=== PATIENT | male | born 1935 | race Caucasian/White ===

== ENCOUNTER → 2017-04-02 | Outpatient (CLI) | payer BC ==
[~2017-04-02] MED LIST: ALLOPOW4 PO; CLONIPINE PO; CLOP1TAB15 PO; CTP3 PO; DABI150C PO; EZET10TA38 PO; FRS/40 PO; LEVO25TA34 PO; METO100T14 PO; MULT-506 PO; RANI150T3 PO; SPIR25TA PO; [UNRECOGNIZED DRUG - CODE] PO
[2017-04-02 09:34] LABS: HEMATOCRIT 41.4 % (42-52); MEAN CELL VOLUME 93.9 fL (80-100); MEAN CORPUSCULAR HEMOGLOBIN 31.1 pg (25-34); MEAN CORPUSCULAR HGB CONC 33.1 g/dl (32-36); MEAN PLATELET VOLUME 11.6 fL (7.4-10.4); PLATELET COUNT 192 K/uL (130-400); RED BLOOD COUNT 4.41 M/uL (4.7-6.1)
[2017-04-02 09:42] LABS: URINE APPEARANCE CLEAR (CLEAR); URINE BILIRUBIN NEG (NEG); URINE COLOR YELLOW; URINE EPITHELIAL CELL AUTO 0-5 /lpf (0-5); URINE NITRITE NEG (NEG); URINE SPECIFIC GRAVITY 1.019 (1.000-1.030); UROBILINOGEN NEG (NEG)
[2017-04-02 09:47] LABS: MANUAL MICROSCOPIC REQUIRED? NO; REVIEW REQ? NO
[2017-04-02 09:51] LABS: BLOOD UREA NITROGEN 31 mg/dl (7-18); BUN/CREATININE RATIO 18.4 (10-20); CALCIUM 9.4 mg/dl (8.5-10.1); CARBON DIOXIDE 29 mmol/L (21-32); CHLORIDE 107 mmol/L (98-107); GLUCOSE 134 mg/dl (70-99); POTASSIUM 4.4 mmol/L (3.5-5.1); SODIUM 141 mmol/L (136-145)
[2017-04-02 10:07] LABS: URINE PROTIEN/CREAT RATIO 0.2 (0-0.2); URINE TOTAL PROTEIN 15.5 mg/dl (0-11.9)
== END | disposition home or self-care (01) ==
LOC: C.LAB1850 06:59
PROVIDERS: ATTEND Internal Medicine Nephrology
DX: I12.9 Hypertensive chronic kidney disease with stage 1 through stage 4 chronic kidney disease, or unspecified chronic kidney disease (principal); N18.3 Chronic kidney disease, stage 3 (moderate); N25.81 Secondary hyperparathyroidism of renal origin; D64.9 Anemia, unspecified

== ENCOUNTER → 2017-10-07 | Outpatient (CLI) | payer BC ==
[2017-10-07 09:34] LABS: HEMATOCRIT 43.7 % (42-52); HEMOGLOBIN 14.5 g/dL (14.0-18.0); MEAN CELL VOLUME 95.6 fL (80-100); MEAN CORPUSCULAR HEMOGLOBIN 31.7 pg (25-34); MEAN CORPUSCULAR HGB CONC 33.2 g/dl (32-36); MEAN PLATELET VOLUME 12.2 fL (7.4-10.4); PLATELET COUNT 227 K/uL (130-400); RED CELL DISTRIBUTION WIDTH CV 14.6 % (11.5-14.5); RED CELL DISTRIBUTION WIDTH SD 50.2 fL (36.4-46.3); WHITE BLOOD COUNT 9.52 K/uL (4.8-10.8)
[2017-10-07 09:47] LABS: ALBUMIN 4.1 gm/dl (3.4-5.0); ALT/SGPT 21 U/L (12-78); AST/SGOT 27 U/L (15-37); BLOOD UREA NITROGEN 41 mg/dl (7-18); CALCIUM 9.3 mg/dl (8.5-10.1); CARBON DIOXIDE 29 mmol/L (21-32); CREATININE 2.11 mg/dl (0.60-1.40); GLUCOSE 117 mg/dl (70-99); POTASSIUM 3.9 mmol/L (3.5-5.1); SODIUM 138 mmol/L (136-145)
[2017-10-07 09:53] LABS: HEMOGLOBIN A1C 6.1 % (4.5-5.6)
[2017-10-07 10:01] LABS: CHOLESTEROL 101 mg/dl (0-200); LDL CHOLESTEROL CALCULATED 29 mg/dl; PHOSPHORUS 2.7 mg/dl (2.5-4.9)
== END | disposition home or self-care (01) ==
LOC: C.LAB1850 07:09
PROVIDERS: ATTEND Internal Medicine Nephrology
DX: I25.10 Atherosclerotic heart disease of native coronary artery without angina pectoris (principal); I12.9 Hypertensive chronic kidney disease with stage 1 through stage 4 chronic kidney disease, or unspecified chronic kidney disease; N18.3 Chronic kidney disease, stage 3 (moderate); E03.9 Hypothyroidism, unspecified; R73.03 Prediabetes; N25.81 Secondary hyperparathyroidism of renal origin; D63.1 Anemia in chronic kidney disease; R60.9 Edema, unspecified

== ENCOUNTER → 2017-10-26 | Outpatient (CLI) | payer BC ==
[~2017-10-26] MED LIST changes: +ALLO100T PO; +AMLO-114 PO; +CALC0.5C2 PO; +CARB25TA12 PO; +CLON0.2T PO; +DABI1CAP PO; +LEVO88TA3 PO; +METO25TA56 PO; +NITR0.4S UT; +VNTHFA/IN INH
--- NOTE | 2017-10-26 12:27 | DIAGNOSTIC IMAGING REPORT ---
CHEST 2 VIEWS ROUTINE HISTORY: 82 years-old Male R06.02 SOB (shortness of breath)[id number] acute shortness of breath COMPARISON: Chest radiograph 09/22/2014 TECHNIQUE: PA and lateral views of the chest FINDINGS: Cardiac silhouette is moderately enlarged. Atherosclerosis of the aorta. Pulmonary vascular congestion is noted with hazy perihilar opacities. Mild biapical pleural-parenchymal scarring/pleural thickening. Small bilateral pleural effusions with hazy bibasilar opacities. Mild interstitial coarsening. No overt pulmonary edema. Bones of the chest appear grossly intact. IVC filter is partially imaged. IMPRESSION: Cardiomegaly and pulmonary vascular congestion with small bilateral pleural effusions and bibasilar opacities suggesting atelectasis or pneumonia. The above report was generated using voice recognition software. It may contain grammatical, syntax or spelling errors. Electronically signed by: Pierre Talley M.D. 10/26/2017 12:25 PM Dictated Date/Time: 10/26/2017 12:23 PM
[2017-10-26 12:55] LABS: BASO % 0.3 %; BASO ABS # 0.03 K/uL (0-0.2); EOS % 0.4 %; EOS ABS # 0.04 K/uL (0-0.5); HEMATOCRIT 38.7 % (42-52); HEMOGLOBIN 12.9 g/dL (14.0-18.0); IG# 0.04 K/uL (0.00-0.02); LYMPH % 14.1 %; MEAN CELL VOLUME 95.8 fL (80-100); MEAN CORPUSCULAR HEMOGLOBIN 31.9 pg (25-34); MEAN CORPUSCULAR HGB CONC 33.3 g/dl (32-36); MEAN PLATELET VOLUME 11.3 fL (7.4-10.4); MONO % 9.7 %; NEUT % 75.1 %; PLATELET COUNT 234 K/uL (130-400); RED CELL DISTRIBUTION WIDTH CV 15.2 % (11.5-14.5); RED CELL DISTRIBUTION WIDTH SD 52.8 fL (36.4-46.3); WHITE BLOOD COUNT 11.31 K/uL (4.8-10.8)
[2017-10-26 13:25] LABS: BLOOD UREA NITROGEN 40 mg/dl (7-18); CALCIUM 9.2 mg/dl (8.5-10.1); CARBON DIOXIDE 25 mmol/L (21-32); CREATININE 1.76 mg/dl (0.60-1.40); GLUCOSE 116 mg/dl (70-99); SODIUM 140 mmol/L (136-145)
== END | disposition home or self-care (01) ==
LOC: C.RAD1850 11:54
PROVIDERS: ATTEND Nurse Practitioner Adult Health
DX: N18.3 Chronic kidney disease, stage 3 (moderate) (principal); I48.2 Chronic atrial fibrillation; I51.7 Cardiomegaly; R06.89 Other abnormalities of breathing

== ENCOUNTER 2017-11-01 00:48 | Inpatient (IN) | payer BC, OTHER ==
[2017-11-01] VITALS (10 sets, daily range): BP systolic 156–178; BP diastolic 54–71; PULSE 64–86; TEMP 36.9–37.3; O2SAT 91–96; Ht 172.7 cm; Wt 79.4 kg
[~2017-11-01] VITALS: Ht 172.7 cm; Wt 79.4 kg
[~2017-11-01 00:48] MED LIST changes: -ALLO100T PO; -AMLO-114 PO; -CALC0.5C2 PO; -CARB25TA12 PO; -CLON0.2T PO; -DABI1CAP PO; -LEVO88TA3 PO; -METO25TA56 PO; -NITR0.4S UT; -VNTHFA/IN INH
[2017-11-01] MEDS ORDERED: ALBUT/IPRATROP 3MG/0.5MG NEB 3 ML VIAL INH STA (01:15)
--- NOTE | 2017-11-01 01:21 | EMERGENCY ROOM VISIT NOTE ---
History Report prepared by Sara: Eugenio Horton Under the Supervision of: Dr. Rogelio Shah M.D. First contact with patient: 00:56 Chief Complaint: RESPIRATORY PROBLEMS Stated Complaint: DIFFICULTY BREATHING History of Present Illness The patient is a 82 year old male who presents to the Emergency Room with complaints of worsening difficulty breathing that began a week ago. He states the symptoms are exacerbated with walking up steps. Patient has associated symptoms of runny nose, shortness of breath, and productive cough. Patient states that leg swelling is his baseline because he takes blood pressure medication. Patient states his PCP is Dr. Young. He denies fevers, chest pain, abdominal pain, passing out, and diarrhea. He states he is not on oxygen at home. He denies a history of heart attacks. He denies a history of asthma. Patient states he is on Lasix and antibiotics. Patient was taking azithromycin for the last few days. Source of History: patient Onset: a week ago Position: chest Timing: worsening Associated Symptoms: + cough, + SOB, No fevers, No chest pain, No diarrhea Note: Patient has runny nose. He denies passing out. Review of Systems See HPI for pertinent positives & negatives. A total of 10 systems reviewed and were otherwise negative. Past Medical & Surgical Medical Problems: (1) Leg swelling (2) Pneumonia involving left lung Family History Omitted secondary to age. Social History Smoking Status: Former Smoker Drug Use: none Marital Status: Occupation Status: retired Current/Historical Medications Scheduled Allopurinol (Zyloprim), 200 MG PO DAILY Amlodipine (Norvasc), 10 MG PO DAILY Calcitriol (Rocaltrol), 0.5 MCG PO QAM Carbidopa/Levodopa (Sinemet 25MG/100MG), 1 TAB PO TID Clonidine Hcl (Catapres), 2 TABS PO TID Clopidogrel (Plavix), 75 MG PO DAILY Dabigatran Etexilate Mesylate (Pradaxa), 75 MG PO BID Ezetimibe/Simvastatin (Vytorin 10MG/20MG), 10-20 TAB PO QPM Furosemide (Lasix), 40 MG PO DAILY Levothyroxine Sodium (Levothyroxine Sodium), 1 TAB PO DAILY Metoprolol Tartrate (Lopressor) (Lopressor), 12.5 MG PO BID Multivitamin (Multivitamin), 1 TAB PO DAILY Scheduled PRN Albuterol Hfa (Ventolin Hfa), 1-2 PUFFS INH Q6H PRN for SOB/Wheezing Nitroglycerin (Nitrostat), 0.4 MG UT UD PRN for Chest Pain Ranitidine Hcl (Zantac), 150 MG PO Q12 PRN for Heartburn Allergies Coded Allergies: Hydralazine (Verified Allergy, Unknown, anorexia,h/a,nausea,palpitations, 11/01/17) Physical Exam Vital Signs Date Time Temp Pulse Resp B/P (MAP) Pulse Ox O2 Delivery O2 Flow Rate FiO2 11/01/17 01:23 97 Nebulizer 7.0 11/01/17 01:20 88 Room Air 11/01/17 00:51 37.5 83 26 191/97 90 Room Air Physical Exam GENERAL: Patient is ill appearing and in mild distress. HEENT: No acute trauma, normocephalic atraumatic, mucous membranes moist, no nasal congestion, no scleral icterus. NECK: No stridor, no adenopathy, no meningismus, trachea is midline. LUNGS: Dyspneic and tachypneic with wet crackles in all lung milan, decreased in left lung with wheezing upper left lung milan. HEART: Regular rate and rhythm. No murmurs, rubs, gallops appreciated. ABDOMEN: Soft, nontender, bowel sounds positive, no masses appreciated, no peritonitis. BACK: No midline tenderness, no CVA tenderness EXTREMITIES: Normal motion all extremities, no cyanosis, mild edema bilateral lower legs. NEUROLOGIC: Alert and oriented, no acute motor or sensory deficits, no focal weakness, cranial nerves grossly intact. SKIN: No rash, no jaundice, no diaphoresis. Medical Decision & Procedures ER Provider Diagnostic Interpretation: Radiology results and stated below were interpreted by me: Chest X-Ray: large upper lobe infiltrate with diffuse congestive findings. Laboratory Results 11/01/17 01:45 Red Blood Count 3.78, Mean Corpuscular Volume 93.7, Mean Corpuscular Hemoglobin 32.0, Mean Corpuscular Hemoglobin Concent 34.2, Mean Platelet Volume 11.1, Neutrophils (%) (Auto) 81.9, Lymphocytes (%) (Auto) 5.5, Monocytes (%) (Auto) 12.2, Eosinophils (%) (Auto) 0.1, Basophils (%) (Auto) 0.2, Neutrophils # (Auto ) 7.53, Lymphocytes # (Auto) 0.51, Monocytes # (Auto) 1.12, Eosinophils # (Auto ) 0.01, Basophils # (Auto) 0.02 11/01/17 01:45 Test 11/01/17 01:45 11/01/17 01:46 White Blood Count 9.20 K/uL (4.8-10.8) Red Blood Count 3.78 M/uL (4.7-6.1) Hemoglobin 12.1 g/dL (14.0-18.0) Hematocrit 35.4 % (42-52) Mean Corpuscular Volume 93.7 fL (80-100) Mean Corpuscular Hemoglobin 32.0 pg (25-34) Mean Corpuscular Hemoglobin Concent 34.2 g/dl (32-36) Platelet Count 193 K/uL (130-400) Mean Platelet Volume 11.1 fL (7.4-10.4) Neutrophils (%) (Auto) 81.9 % Lymphocytes (%) (Auto) 5.5 % Monocytes (%) (Auto) 12.2 % Eosinophils (%) (Auto) 0.1 % Basophils (%) (Auto) 0.2 % Neutrophils # (Auto) 7.53 K/uL (1.4-6.5) Lymphocytes # (Auto) 0.51 K/uL (1.2-3.4) Monocytes # (Auto) 1.12 K/uL (0.11-0.59) Eosinophils # (Auto) 0.01 K/uL (0-0.5) Basophils # (Auto) 0.02 K/uL (0-0.2) RDW Standard Deviation 50.5 fL (36.4-46.3) RDW Coefficient of Variation 15.0 % (11.5-14.5) Immature Granulocyte % (Auto) 0.1 % Immature Granulocyte # (Auto) 0.01 K/uL (0.00-0.02) Prothrombin Time 13.4 SECONDS (9.0-12.0) Prothromb Time International Ratio 1.3 (0.9-1.1) Activated Partial Thromboplast Time 40.1 SECONDS (21.0-31.0) Partial Thromboplastin Ratio 1.5 Anion Gap 9.0 mmol/L (3-11) Est Creatinine Clear Calc Drug Dose 30.2 ml/min Estimated GFR () 40.3 Estimated GFR (Non- 34.7 BUN/Creatinine Ratio 21.6 (10-20) Calcium Level 8.7 mg/dl (8.5-10.1) Magnesium Level 2.2 mg/dl (1.8-2.4) Troponin I < 0.015 ng/ml (0-0.045) Pro-B-Type Natriuretic Peptide 7045 pg/ml (0-1800) Bedside Lactic Acid Venous 0.81 mmol/L (0.90-1.70) Laboratory results as reviewed by me. Medications Administered Medications (Trade) Dose Ordered Sig/Amado Route Start Time Stop Time Status Last Admin Dose Admin Albuterol/ Ipratropium (Duoneb) 3 ml NOW STAT INH 11/01/17 01:15 11/01/17 01:17 DC 11/01/17 01:24 3 ML Piperacillin Sod/ Tazobactam Sod (Zosyn Iv) 4.5 gm NOW STAT IV 11/01/17 02:25 11/01/17 02:28 DC 11/01/17 02:25 4.5 GM ECG Indication: SOB/dyspnea Rate (beats per minute): 76 Rhythm: normal sinus Findings: PVC, no acute ischemic change Change: EKG: Electrocardiogram per my interpretation. ED Course 0058: The patient was evaluated in room A4. A complete history and physical exam was performed. 0115: Duoneb 3ml INH 0225: Zosyn IV 4.5gm IV 0231: I discussed the patient with Dr. Roper. He states the patient should get a CT of the chest. 0248: Vancomycin HCl 1500mg/Sodium Chloride 530 ml @ 200 mls/hr IV 0315: Upon reevaluation, the patient will be further evaluated. I spoke with Dr. Roper. Discussed results and treatment plan with the patient. He verbalized understanding and agreement with the treatment plan. The patient will be evaluated for further management. Medical Decision Differential: Infectious, Reactive Airway Disease, Pneumonia, Pneumothorax, COPD , CHF, ACS, Pulmonary Embolism, MSK, GI, Dissection, amongst other etiologies entertained. 82 yr old male arrives with worsening SHOB, cough, and exertional weakness over last week. Already seen by PCP several times and attempt with Azithro and increased Lasix, and despite this with worsening symptoms. Given exam seems likely pneumonia vs CHF, and CXR more consistent with PNA. Blood cultures obtained. Lactic acid wnl and I do not feel he is overtly septic, nor do I feel he needs to have aggressive hydration as concerns of CHF already. Mild wheeze I feel is likely secondary to infection as opposed to full reactive airway/COPD. No evidence ACS, and symptoms I feel risk PE is less than infection. Review of labs notes worsening CR this week compared to previous, thus without overt overload currently will hold on emergent lasix. With hypoxia , failed outpatient approach I feel he will need inpatient treatment. Hospitalist discussed with me case and evaluated patient, requesting CT Chest wo con for further evaluation. Of note, EKG with poor baseline and I feel it is quite regular rate other than PAC/PVCs and unlikely afib. Given empiric broad spectrum ABX and hold on Levaquin given he has been on Azithro already. Medication Reconcilliation Current Medication List: was personally reviewed by me Blood Pressure Screening Patient's blood pressure: Elevated blood pressure Addressed as an inpatient. Impression Primary Impression: Left upper lobe pneumonia Additional Impressions: Hypoxia Renal insufficiency Failure of outpatient treatment Scribe Attestation The scribe's documentation has been prepared under my direction and personally reviewed by me in its entirety. I confirm that the note above accurately reflects all work, treatment, procedures, and medical decision making performed by me. Departure Information Dispostion Being Evaluated By Hospitalist Referrals Chavez Young M.D. (PCP) Forms HOME CARE DOCUMENTATION FORM, IMPORTANT VISIT INFORMATION, WORK / SCHOOL INSTRUCTIONS Patient Instructions My [facility] Problem Qualifiers
[2017-11-01] MEDS ORDERED: AMLO-114 PO (01:27)
[2017-11-01] MEDS ORDERED: ALLO100T PO (01:27)
[2017-11-01] MEDS ORDERED: CALC0.5C2 PO (01:28)
[2017-11-01] MEDS ORDERED: LEVO88TA3 PO (01:30)
[2017-11-01] MEDS ORDERED: CARB25TA12 PO (01:30)
[2017-11-01] MEDS ORDERED: CLON0.2T PO (01:30)
[2017-11-01] MEDS ORDERED: NITR0.4S UT (01:32)
[2017-11-01] MEDS ORDERED: METO25TA56 PO (01:32)
[2017-11-01] MEDS ORDERED: DABI1CAP PO (01:33)
[2017-11-01] MEDS ORDERED: VNTHFA/IN INH (01:33)
[2017-11-01 02:02] LABS: HEMATOCRIT 35.4 % (42-52); HEMOGLOBIN 12.1 g/dL (14.0-18.0); MEAN CELL VOLUME 93.7 fL (80-100); MEAN CORPUSCULAR HGB CONC 34.2 g/dl (32-36); MEAN PLATELET VOLUME 11.1 fL (7.4-10.4); PLATELET COUNT 193 K/uL (130-400); RED CELL DISTRIBUTION WIDTH SD 50.5 fL (36.4-46.3)
[2017-11-01 02:19] LABS: BLOOD UREA NITROGEN 38 mg/dl (7-18); CALCIUM 8.7 mg/dl (8.5-10.1); CARBON DIOXIDE 24 mmol/L (21-32); CREATININE 1.76 mg/dl (0.60-1.40); GLUCOSE 144 mg/dl (70-99); POTASSIUM 3.7 mmol/L (3.5-5.1); SODIUM 135 mmol/L (136-145)
[2017-11-01] MEDS ORDERED: VANCOMYCIN INJ 1,500 MG in SODIUM CHLORIDE 0.9% 250ML 250 ML IV STA (02:25)
[2017-11-01] MEDS ORDERED: PIPERACILLIN/TAZOBACTAM 4.5 GM/100ML D5W IV STA (02:25)
[2017-11-01 02:28] LABS: INR 1.3 (0.9-1.1); PTT PATIENT 40.1 SECONDS (21.0-31.0)
[2017-11-01] MEDS ORDERED: VANCOMYCIN CONSULT ACTIVE PRN ×2 (02:30→03:45)
[2017-11-01 02:32] LABS: BASO % 0.2 %; BASO ABS # 0.02 K/uL (0-0.2); EOS % 0.1 %; EOS ABS # 0.01 K/uL (0-0.5); IG# 0.01 K/uL (0.00-0.02); LYMPH % 5.5 %; LYMPH ABS # 0.51 K/uL (1.2-3.4); MONO % 12.2 %; MONO ABS # 1.12 K/uL (0.11-0.59); NEUT % 81.9 %; NEUT ABS # 7.53 K/uL (1.4-6.5)
[2017-11-01] MEDS ORDERED: VANCOMYCIN INJ 1,500 MG in SODIUM CHLORIDE 0.9% 500ML 500 ML IV STA (02:48)
[2017-11-01] MEDS ORDERED: ACETAMINOPHEN 325 MG TAB PO PRN (03:30)
[2017-11-01] MEDS ORDERED: NITROGLYCERIN 0.4 MG SL PER TAB CHARGE SL PRN (03:30)
[2017-11-01] MEDS ORDERED: POLYETHYLENE (MIRALAX) 17 GM PACK PO PRN (03:30)
[2017-11-01] MEDS ORDERED: ALUMINUM/MAGNESIUM/SIMETH (MAALOX MAX) 30 ML UDC PO PRN (03:30)
[2017-11-01] MEDS ORDERED: MAGNESIUM HYDROXIDE SUSP 30 ML UDC PO PRN (03:30)
[2017-11-01] MEDS ORDERED: VANCOMYCIN INJ 1,000 MG in SODIUM CHLORIDE 0.9% 250ML 250 ML IV STA (03:31)
[2017-11-01] MEDS ORDERED: PIPERACILL/TAZOBAC CONSULT ACTIVE PRN (03:45)
[2017-11-01] MEDS ORDERED: LEVALBUTEROL 1.25MG/0.5ML NEB INH PRN (03:45)
[2017-11-01] MEDS ORDERED: IPRATROPIUM BROMIDE NEB SOLN 0.02% 2.5 ML VIAL INH PRN (03:45)
--- NOTE | 2017-11-01 04:52 | History and Physical ---
History & Physical Date & Time of Service: Nov 01, 2017 at 04:44 Chief Complaint: Difficulty Breathing Primary Care Physician: Chavez Young M.D. History of Present Illness Source: patient, spouse, hospital records The patient is an 82-year-old male who presents to the emergency department with worsening shortness of breath, productive cough, runny nose and dyspnea on exertion. He reports that his PCP placed him on an increased dose of Lasix from 40-80 mg over the past week, his reports that he lost 5 pounds, and his legs have become less swollen. Family History Noncontributory Social History Smoking Status: Former Smoker Smokeless Tobacco Use: No Alcohol Use: none Drug Use: none Marital Status: Occupational Status: retired Immunizations History of Influenza Vaccine: Yes History of Tetanus Vaccine?: Yes History of Pneumococcal: Yes History of Hepatitis B Vaccine: Unknown Multi-Drug Resistant Organisms History of MDRO: No Allergies Coded Allergies: Hydralazine (Verified Allergy, Unknown, anorexia,h/a,nausea,palpitations, 11/01/17) Home Medications Scheduled Allopurinol (Zyloprim), 200 MG PO DAILY Amlodipine (Norvasc), 10 MG PO DAILY Calcitriol (Rocaltrol), 0.5 MCG PO QAM Carbidopa/Levodopa (Sinemet 25MG/100MG), 1 TAB PO TID Clonidine Hcl (Catapres), 2 TABS PO TID Clopidogrel (Plavix), 75 MG PO DAILY Dabigatran Etexilate Mesylate (Pradaxa), 75 MG PO BID Ezetimibe/Simvastatin (Vytorin 10MG/20MG), 10-20 TAB PO QPM Furosemide (Lasix), 40 MG PO DAILY Levothyroxine Sodium (Levothyroxine Sodium), 1 TAB PO DAILY Metoprolol Tartrate (Lopressor) (Lopressor), 12.5 MG PO BID Multivitamin (Multivitamin), 1 TAB PO DAILY Scheduled PRN Albuterol Hfa (Ventolin Hfa), 1-2 PUFFS INH Q6H PRN for SOB/Wheezing Nitroglycerin (Nitrostat), 0.4 MG UT UD PRN for Chest Pain Ranitidine Hcl (Zantac), 150 MG PO Q12 PRN for Heartburn Review of Systems The patient denies chest pain, sore throat, fevers, chills, sweats, fatigue, nausea, vomiting, diarrhea , constipation, abdominal pain, pelvic pain, blood in urine or stool, dysuria, urinary frequency or urgency, lightheadedness , dizziness, headache, memory loss, loss of consciousness, rash, abnormal bruising or bleeding, imbalance, focal or generalized weakness, numbness or tingling in arms or legs, generalized arthralgias or myalgias, back or neck pain, or night sweats. The review of systems is otherwise negative other than for that already noted above, and at least 10 systems have been reviewed. Physical Exam Vital Signs Date Time Temp Pulse Resp B/P (MAP) Pulse Ox O2 Delivery O2 Flow Rate FiO2 11/01/17 03:21 70 18 94 Non-Rebreather 6.0 11/01/17 01:23 97 Nebulizer 7.0 11/01/17 01:20 88 Room Air 11/01/17 00:51 37.5 83 26 191/97 90 Room Air The patient is awake, alert and oriented 3, well developed and well nourished, normocephalic and atraumatic, lying in bed and in no acute distress. HEENT--PERRL, EOMI, mucous membranes and oropharynx mildly dry. Neck--supple. No JVD. No bruits. Thyroid normal, trachea midline, no adenopathy. Heart--normal S1 and S2. No murmurs, rubs or gallops. Lungs--decreased breath sounds on left, no respiratory distress, no accessory muscle use. Abdomen--normal bowel sounds and soft. Nontender. Nondistended, no hernias or masses, no organomegaly. Extremities--no cyanosis or clubbing. There is bilateral pretibial 1+ pitting edema. There are good distal pulses b/l. Dermatologic--normal skin turgor, normal color, no abnormal lymph nodes, no rash. Neurologic--cranial nerves II through XII grossly intact. Rheumatologic--normal range of motion. Psychiatric--normal affect. Diagnostics Laboratory Results Results Past 24 Hours Test 11/01/17 01:45 11/01/17 01:46 Range/Units White Blood Count 9.20 4.8-10.8 K/uL Red Blood Count 3.78 4.7-6.1 M/uL Hemoglobin 12.1 14.0-18.0 g/dL Hematocrit 35.4 42-52 % Mean Corpuscular Volume 93.7 80-100 fL Mean Corpuscular Hemoglobin 32.0 25-34 pg Mean Corpuscular Hemoglobin Concent 34.2 32-36 g/dl Platelet Count 193 130-400 K/uL Mean Platelet Volume 11.1 7.4-10.4 fL Neutrophils (%) (Auto) 81.9 % Lymphocytes (%) (Auto) 5.5 % Monocytes (%) (Auto) 12.2 % Eosinophils (%) (Auto) 0.1 % Basophils (%) (Auto) 0.2 % Neutrophils # (Auto) 7.53 1.4-6.5 K/uL Lymphocytes # (Auto) 0.51 1.2-3.4 K/uL Monocytes # (Auto) 1.12 0.11-0.59 K/uL Eosinophils # (Auto) 0.01 0-0.5 K/uL Basophils # (Auto) 0.02 0-0.2 K/uL RDW Standard Deviation 50.5 36.4-46.3 fL RDW Coefficient of Variation 15.0 11.5-14.5 % Immature Granulocyte % (Auto) 0.1 % Immature Granulocyte # (Auto) 0.01 0.00-0.02 K/uL Prothrombin Time 13.4 9.0-12.0 SECONDS Prothromb Time International Ratio 1.3 0.9-1.1 Activated Partial Thromboplast Time 40.1 21.0-31.0 SECONDS Partial Thromboplastin Ratio 1.5 Sodium Level 135 136-145 mmol/L Potassium Level 3.7 3.5-5.1 mmol/L Chloride Level 102 98-107 mmol/L Carbon Dioxide Level 24 21-32 mmol/L Anion Gap 9.0 3-11 mmol/L Blood Urea Nitrogen 38 7-18 mg/dl Creatinine 1.76 0.60-1.40 mg/dl Est Creatinine Clear Calc Drug Dose 30.2 ml/min Estimated GFR () 40.3 Estimated GFR (Non- 34.7 BUN/Creatinine Ratio 21.6 10-20 Random Glucose 144 70-99 mg/dl Calcium Level 8.7 8.5-10.1 mg/dl Magnesium Level 2.2 1.8-2.4 mg/dl Troponin I < 0.015 0-0.045 ng/ml Pro-B-Type Natriuretic Peptide 7045 0-1800 pg/ml Bedside Lactic Acid Venous 0.81 0.90-1.70 mmol/L Microbiology Results 11/01/17 Blood Culture, Received Pending 11/01/17 Blood Culture, Received Pending Impression Assessment and Plan Acute respiratory failure with hypoxia/left upper lobe pneumonia-- Vancomycin IV per pharmacokinetic monitoring Zosyn 3.375 mg IV every 8 hours Levofloxacin 500 mg IV every 24 hours Xopenex/Atrovent nebulizers every 6 hours while awake and every 2 hours when necessary. Solu-Medrol 40 mg IV every 8 hours Guaifenesin extended release 600 mg by mouth twice a day Nasal cannula oxygen titrate to keep pulse ox greater than or equal to 92% Sputum Gram stain and culture Order CT of chest without contrast to assess for possible mucus plugging and or endobronchial lesion. Hypertension-- Continue Plavix 75 mg p.o. daily, metoprolol tartrate 12.5 mg p.o. twice daily, clonidine 0.2 mg 2 tabs cirrhosis p.o. 3 times daily, amlodipine 10 mg p.o. daily, Pradaxa 75 mg p.o. twice daily and furosemide 40 mg daily TRACI- Decrease furosemide from 80-40 mg daily for now. Hyperlipidemia-- Continue Zetia/simvastatin 10/20 p.o. daily Hypothyroidism-- Continue levothyroxine sodium 88 mcg p.o. daily Parkinsonism-- Continue carbidopa/levodopa 25/100 p.o. 3 times daily Gout-- Continue allopurinol 200 mg p.o. daily Level of Care Telemetry Advanced Directives Existing Advance Directive: No Existing Living Will: No Existing Power of Target Man: No Resuscitation Status FULL RESUSCITATION VTE Prophylaxis VTE Risk Assessment Done? Y/N: Yes Risk Level: Moderate
[2017-11-01] MEDS ORDERED: LEVOFLOXACIN CONSULT ACTIVE PRN (05:15)
[2017-11-01] MEDS ORDERED: LEVOFLOXACIN / D5W 500 MG in PREMIXED IN D5W 100 ML IV SCH (06:00)
--- NOTE | 2017-11-01 06:16 | DIAGNOSTIC IMAGING REPORT ---
CHEST ONE VIEW PORTABLE CLINICAL HISTORY: Cough, SHOB dyspnea COMPARISON STUDY: 10/26/2017 FINDINGS: Diffuse parenchymal infiltrate left upper lobe. Small parenchymal infiltrate right base. Moderate cardiomegaly unchanged. Upper right lung is clear. IMPRESSION: Interval development of bilateral parenchymal infiltrates. Cardiomegaly. The above report was generated using voice recognition software. It may contain grammatical, syntax or spelling errors. Electronically signed by: Jignesh Solano M.D. 11/01/2017 6:14 AM Dictated Date/Time: 11/01/2017 6:12 AM
--- NOTE | 2017-11-01 06:55 | DIAGNOSTIC IMAGING REPORT ---
(CHEST) THORAX WITHOUT CT DOSE: 384.68 mGy.cm HISTORY: Dyspnea Shortness of breath, Left upper lobe infiltrate TECHNIQUE: Multiaxial CT images of the chest were performed without contrast. A dose lowering technique was utilized adhering to the principles of ALARA. COMPARISON: None. FINDINGS: Diffuse left upper lobe infiltrate. Small bibasilar parenchymal infiltrates. Small bilateral pleural effusions. Moderate cardiomegaly. No significant pericardial effusion. Atherosclerotic change thoracic aorta. IMPRESSION: 1. Diffuse left upper lobe infiltrate. 2. Minimal/mild bibasilar parenchymal infiltrates with small bilateral pleural effusions. The above report was generated using voice recognition software. It may contain grammatical, syntax or spelling errors. Electronically signed by: Jignesh Solano M.D. 11/01/2017 6:53 AM Dictated Date/Time: 11/01/2017 6:52 AM
[2017-11-01] MEDS: BUDESONIDE 0.5 MG/2 ML VIAL (PULMICORT) INH SCH ×2 (07:12→20:00)
[2017-11-01] MEDS: IPRATROPIUM BROMIDE NEB SOLN 0.02% 2.5 ML VIAL INH SCH ×3 (07:12→21:00)
[2017-11-01] MEDS: LEVALBUTEROL 1.25MG/0.5ML NEB INH SCH ×3 (07:12→21:00)
[2017-11-01] MEDS: METHYLPREDNISOLONE IV 20 MG in SYRINGE 0 ML IV SCH ×3 (07:53→21:51)
[2017-11-01] MEDS: CLONIDINE HCL 0.1 MG TAB PO SCH ×3 (07:54→21:51)
[2017-11-01] MEDS: METOPROLOL TARTRATE 25 MG TAB PO SCH ×2 (07:55→21:53)
[2017-11-01] MEDS: CLOPIDOGREL BISULFATE 75 MG TAB PO SCH (07:55)
[2017-11-01] MEDS: CARBIDOPA/LEVODOPA 25/100MG TAB PO SCH ×3 (07:55→21:54)
[2017-11-01] MEDS: AMLODIPINE BESYLATE 5 MG TAB PO SCH (07:55)
[2017-11-01] MEDS: LEVOTHYROXINE 88 MCG TAB PO SCH (07:56)
[2017-11-01] MEDS: ALLOPURINOL 100 MG TAB PO SCH (07:56)
[2017-11-01] MEDS: DABIGATRAN ELEXILATE 75 MG CAP PO SCH ×2 (07:56→21:55)
[2017-11-01] MEDS: MULTIVITAMIN TAB PO SCH (07:56)
[2017-11-01] MEDS: CALCITRIOL 0.25 MCG CAP PO SCH (07:56)
[2017-11-01] MEDS: GUAIFENESIN 200 MG TAB PO SCH ×2 (07:57→21:52)
[2017-11-01] MEDS: PIPERACILL/TAZOBAC IV 3.375 GM in DEXTROSE 5% 100ML 100 ML IV SCH ×3 (08:00→23:43)
--- NOTE | 2017-11-01 08:47 | Progress Note ---
Subjective Date of Service: Nov 01, 2017. Subjective pt states he is begininng to feel improved, little sputum production, initally diarrhea at home now home Problem List Medical Problems: (1) Failure of outpatient treatment Status: Acute (2) Hypoxia Status: Acute (3) Left upper lobe pneumonia Status: Acute (4) Renal insufficiency Status: Acute Review of Systems Constitutional: + weakness, + fatigue, No fever, No chills Respiratory: + cough, + shortness of breath, + dyspnea on exertion Cardiac: No chest pain, No PND Abdomen: No pain, No vomiting Musculoskeletal: No joint pain, No muscle pain Neurologic: No memory loss, No weakness Psychiatric: No depression symptoms, No anhedonism Objective Vital Signs Date Time Temp Pulse Resp B/P (MAP) Pulse Ox O2 Delivery O2 Flow Rate FiO2 11/01/17 07:51 36.9 64 20 166/64 (98) 93 2.0 11/01/17 07:17 80 16 91 Nasal Cannula 2.0 11/01/17 04:30 93 Nasal Cannula 2.0 11/01/17 04:23 37.0 76 18 170/65 (100) 93 Nasal Cannula 2.0 11/01/17 03:21 70 18 94 Non-Rebreather 6.0 11/01/17 01:23 97 Nebulizer 7.0 11/01/17 01:20 88 Room Air 11/01/17 00:51 37.5 83 26 191/97 90 Room Air Physical Exam General Appearance: WD/WN, + mild distress Neck: supple, thyroid normal Respiratory/Chest: chest non-tender, + decreased breath sounds, + rales Cardiovascular: regular rate, rhythm, no murmur Abdomen: normal bowel sounds, non tender, soft Extremities: no pedal edema, no calf tenderness Neurologic/Psychiatric: alert, oriented x 3 Laboratory Results Last 24 Hours Test 11/01/17 01:45 11/01/17 01:46 11/01/17 07:28 White Blood Count 9.20 K/uL Red Blood Count 3.78 M/uL Hemoglobin 12.1 g/dL Hematocrit 35.4 % Mean Corpuscular Volume 93.7 fL Mean Corpuscular Hemoglobin 32.0 pg Mean Corpuscular Hemoglobin Concent 34.2 g/dl Platelet Count 193 K/uL Mean Platelet Volume 11.1 fL Neutrophils (%) (Auto) 81.9 % Lymphocytes (%) (Auto) 5.5 % Monocytes (%) (Auto) 12.2 % Eosinophils (%) (Auto) 0.1 % Basophils (%) (Auto) 0.2 % Neutrophils # (Auto) 7.53 K/uL Lymphocytes # (Auto) 0.51 K/uL Monocytes # (Auto) 1.12 K/uL Eosinophils # (Auto) 0.01 K/uL Basophils # (Auto) 0.02 K/uL RDW Standard Deviation 50.5 fL RDW Coefficient of Variation 15.0 % Immature Granulocyte % (Auto) 0.1 % Immature Granulocyte # (Auto) 0.01 K/uL Prothrombin Time 13.4 SECONDS Prothromb Time International Ratio 1.3 Activated Partial Thromboplast Time 40.1 SECONDS Partial Thromboplastin Ratio 1.5 Sodium Level 135 mmol/L Potassium Level 3.7 mmol/L Chloride Level 102 mmol/L Carbon Dioxide Level 24 mmol/L Anion Gap 9.0 mmol/L Blood Urea Nitrogen 38 mg/dl Creatinine 1.76 mg/dl Est Creatinine Clear Calc Drug Dose 30.2 ml/min Estimated GFR () 40.3 Estimated GFR (Non- 34.7 BUN/Creatinine Ratio 21.6 Random Glucose 144 mg/dl Calcium Level 8.7 mg/dl Magnesium Level 2.2 mg/dl Troponin I < 0.015 ng/ml Pro-B-Type Natriuretic Peptide 7045 pg/ml Bedside Lactic Acid Venous 0.81 mmol/L Bedside Glucose 119 mg/dl Assessment and Plan 82 M with Acute respiratory failure with hypoxia/left upper lobe pneumonia--was not initially tested for influenza this is pending Acute hypoxic respiratory failure, Xopenex/Atrovent nebulizers Solu-Medrol 40 mg IV q 12h, Nasal cannula oxygen titrate to keep pulse ox greater than or equal to 92% Pneumonia Vancomycin, zosyn Levofloxacin 750 mg IV every 24 hours, Guaifenesin extended release 600 mg by mouth twice a day Sputum Gram stain and culture. given left upper lobe if not improved may get pulmonary consult as there is suggestion of some lung disease on CT Afib/Hypertension-- Plavix 75 mg p.o. daily, metoprolol tartrate 12.5 mg p.o. twice daily, clonidine 0.2 mg 2 tabs cirrhosis p.o. 3 times daily, amlodipine 10 mg p.o. daily, Pradaxa 75 mg p.o. twice daily and furosemide 40 mg daily, pending echo TRACI-Decrease furosemide from 80-40 mg daily for now. Hyperlipidemia-- Zetia/simvastatin 10/20 p.o. daily Hypothyroidism--levothyroxine sodium 88 mcg p.o. daily Parkinsonism-- carbidopa/levodopa 25/100 p.o. 3 times daily Gout--allopurinol 200 mg p.o. daily
[2017-11-01] MEDS ORDERED: FUROSEMIDE 40 MG TAB PO SCH (09:00)
[2017-11-01] MEDS ORDERED: LEVALBUTEROL/IPRATROPIUM NEB INH SCH (09:00)
--- NOTE | 2017-11-01 12:53 | Pharmacy Progress Note ---
Pharmacy Abx Dose Short Note Date of Service Nov 01, 2017. Assessment & Plan Assessment 82 year old male receiving VANC/ZOSYN/LVQ for treatment of KRISTINE pneumonia Day # 1 of antimicrobial therapy. Plan 1. Vancomycin * Estimate t1/2~24 hours * LOADING DOSE: VANC 1500mg (~20mg/kg) IV x 1 * MAINTENANCE DOSE: VANC 1000mg (12mg/kg) IV every 24 hours * Goal trough level: 15 to 20 mcg/mL * VANC trough 11/03 0130 not Css * Await nasal MRSA swab results 2. ZOSYN-IV: 4.5grams IV x1, then 3.375g IV every 8 hours 3. LVQ-IV: 500mg IV x 1, then 250mg IV daily. Pharmacy will continue to follow and will adjust dose/frequency as necessary. Thank you.
[2017-11-01 13:23] LABS: INFLUENZA B ANTIGEN Neg for Influ B (NEG)
[2017-11-01] MEDS ORDERED: EZETIMIBE/SIMVASTATIN 10/20 TAB PO SCH (21:00)
[2017-11-01] MEDS: EZETIMIBE/SIMVASTATIN 10/20 TAB PO SCH (21:54)
[2017-11-02] VITALS (12 sets, daily range): BP systolic 156–181; BP diastolic 56–70; PULSE 69–86; TEMP 36.5–36.9; O2SAT 92–96
[2017-11-02] MEDS ORDERED: VANCOMYCIN INJ 1,000 MG in SODIUM CHLORIDE 0.9% 250ML 250 ML IV SCH (02:00)
[2017-11-02] MEDS: IPRATROPIUM BROMIDE NEB SOLN 0.02% 2.5 ML VIAL INH SCH ×4 (02:04→20:00)
[2017-11-02] MEDS: LEVALBUTEROL 1.25MG/0.5ML NEB INH SCH ×4 (02:04→20:00)
[2017-11-02] MEDS: METHYLPREDNISOLONE IV 20 MG in SYRINGE 0 ML IV SCH ×2 (05:23→13:13)
[2017-11-02] MEDS: LEVOTHYROXINE 88 MCG TAB PO SCH (05:24)
[2017-11-02] MEDS ORDERED: LEVOFLOXACIN / D5W 750 MG in PREMIXED IN D5W 150 ML IV SCH (06:00)
[2017-11-02] MEDS ORDERED: LEVOFLOXACIN 250MG / D5W IV SCH (06:00)
[2017-11-02] MEDS: BUDESONIDE 0.5 MG/2 ML VIAL (PULMICORT) INH SCH ×2 (07:40→20:00)
[2017-11-02] MEDS: MULTIVITAMIN TAB PO SCH (08:13)
[2017-11-02] MEDS: CARBIDOPA/LEVODOPA 25/100MG TAB PO SCH ×3 (08:13→20:40)
[2017-11-02] MEDS: PIPERACILL/TAZOBAC IV 3.375 GM in DEXTROSE 5% 100ML 100 ML IV SCH (08:13)
[2017-11-02] MEDS: DABIGATRAN ELEXILATE 75 MG CAP PO SCH ×2 (08:13→20:39)
[2017-11-02] MEDS: CLONIDINE HCL 0.1 MG TAB PO SCH ×3 (08:13→20:41)
[2017-11-02] MEDS: AMLODIPINE BESYLATE 5 MG TAB PO SCH (08:14)
[2017-11-02] MEDS: CALCITRIOL 0.25 MCG CAP PO SCH (08:14)
[2017-11-02] MEDS: GUAIFENESIN 200 MG TAB PO SCH ×2 (08:14→20:40)
[2017-11-02] MEDS: METOPROLOL TARTRATE 25 MG TAB PO SCH ×2 (08:14→20:41)
[2017-11-02] MEDS: CLOPIDOGREL BISULFATE 75 MG TAB PO SCH (08:14)
[2017-11-02] MEDS: ALLOPURINOL 100 MG TAB PO SCH (08:14)
--- NOTE | 2017-11-02 08:18 | Hospitalist Progress Note ---
Hospitalist Progress Note Date of Service Nov 02, 2017. (Parvin Palacios PA-C) Subjective Pt evaluation today including: conversation w/ patient, physical exam, chart review, lab review, review of studies Pain: None PO Intake: Good Voiding: no voiding problems The patient was seen and examined this morning. Pt reports doing well today, he still feels short of breath with ambulating to the bathroom. Other than walking to the bathroom he has not been getting up much. He is coughing yellow sputum and has a culture cup next to him. He denies any blood in sputum. PT does not require O2 at home and still remains on 2 L this morning. He denies any chest pain, tightness, palpitation or flutter. 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 He previously has a significant smoking hx of 40 pack years. Quit in the 80s. ROS: 6 point ROS reviewed and otherwise negative. (Parvin Palacios, RAGHU) Objective Vital Signs Date Time Temp Pulse Resp B/P (MAP) Pulse Ox O2 Delivery O2 Flow Rate FiO2 11/02/17 08:10 36.8 73 18 181/68 (105) 96 Nasal Cannula 2.0 11/02/17 04:05 Nasal Cannula 2.0 11/02/17 03:49 36.9 79 16 180/68 (105) 95 Nasal Cannula 2.0 11/02/17 02:05 69 16 94 Nasal Cannula 2.0 11/02/17 00:45 79 156/56 (89) 96 Nasal Cannula 2.0 11/02/17 00:05 Nasal Cannula 2.0 11/01/17 23:31 37.0 70 18 171/56 (94) 95 Nasal Cannula 2.0 11/01/17 20:18 37.3 80 18 156/54 (88) 96 Nasal Cannula 2.0 11/01/17 20:05 Nasal Cannula 2.0 11/01/17 19:43 72 16 93 Nasal Cannula 2.0 11/01/17 16:00 Nasal Cannula 2.0 11/01/17 15:25 37.0 86 22 168/71 (103) 94 Nasal Cannula 2.0 11/01/17 14:20 81 16 93 Nasal Cannula 2.0 11/01/17 12:00 Nasal Cannula 2.0 11/01/17 11:13 37.0 74 178/67 (104) 92 Nasal Cannula 2.0 (Parvin Palacios PA-C) Physical Exam General Appearance: WD/WN, no apparent distress Eyes: PERRL, EOMI ENT: hearing grossly normal, pharynx normal Neck: supple, no JVD Respiratory/Chest: no respiratory distress, no accessory muscle use, + pertinent finding (on 2 L via NC, + coarse cough with yellow sputum production, exp wheeze in KRISTINE, no other adventitious breath sounds) Cardiovascular: regular rate, rhythm, no murmur Abdomen: normal bowel sounds, non tender, soft Extremities: non-tender, no calf tenderness, + pedal edema (1+ pitting edema BLE) Neurologic/Psychiatric: alert, normal mood/affect, oriented x 3 (Parvin Palacios PA-C) Laboratory Results Last 24 Hours Test 11/01/17 11:30 11/01/17 16:51 11/01/17 20:30 11/02/17 07:18 Bedside Glucose 151 mg/dl 226 mg/dl 250 mg/dl 184 mg/dl (Parvin Palacios PA-C) Assessment and Plan 82 M with Acute respiratory failure with hypoxia/left upper lobe pneumonia Acute hypoxic respiratory failure - Xopenex/Atrovent nebulizers - Transition to prednisone 50 mg daily, off solumedrol, add dornase and vibration vest to help expectorate mucous. - O2 protocol, keep pulse ox greater than or equal to 92%. Pt does not wear home O2. - negative Influenza Pneumonia KRISTINE - Cont Levofloxacin 750 mg IV every 24 hours (started 10/31), stop vanc as MRSA neg, stop zosyn. - Supportive care with mucinex ER 600 mg BID - Sputum Gram stain and culture. 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 - Previous hx of smoking 1 ppd x ~40 years, quit in the 80s. - PT/OT consulted for CM - pt does walk on treadmill for 3 miles 5 days per week. Afib/Hypertension- - Plavix 75 mg p.o. daily, metoprolol tartrate 12.5 mg p.o. BID, clonidine 0.2 mg 2 tabs cirrhosis p.o. TID, amlodipine 10 mg p.o. daily, Pradaxa 75 mg p.o. BID. - Holding lasix - Echo ordered - await results TRACI - Holding furosemide Hyperlipidemia- - Zetia/simvastatin 10/20 p.o. daily Hypothyroidism -levothyroxine sodium 88 mcg p.o. daily Parkinsonism- - carbidopa/levodopa 25/100 p.o. 3 times daily CODE STATUS: FULL CODE Disposition: From home, lives with . No CM needs anticipated. (Parvin Palacios, RAGHU) PA Physician Supervision Note: I interviewed and examined the patient. Discussed with Parvin Palacios PAC and agree with findings and plan as documented in the note. Any exceptions or clarifications are listed here: None Patient is doing well but continues require oxygen therapy is a fairly significant left upper lobe pneumonia pulmonary medicine is seen him and requested changes in a box [facility] with the degree of his pneumonia may require supplemental oxygen at home even after discharge Temperature 36.8 pulse 73 respirations 18 BP a slightly elevated at 181/68 His exam today does show rales and rhonchi in the left upper lobe otherwise is good air movement and clear Acute hypoxic respiratory failure with left upper lobe pneumonia and previous history of atrial fibrillation As mentioned pulmonary medicine will change in the [facility] to follow with outpatient care if he isn't a good resolution of his hypoxia he may need to go home on oxygen for short term some schooling we will get to step on 213 and if he needs oxygen will have home oxygen arranged for him Documented By: Eugenio Chang (Eugenio Chang M.D.)
[2017-11-02 13:44] LABS: CREATININE 2.01 mg/dl (0.60-1.40)
--- NOTE | 2017-11-02 13:53 | Pulmonary Consultation ---
History General Date of Service: Nov 02, 2017. Stated Complaint: Hypoxemia with associated left upper lobe infiltrative process HPI The patient is a 82 year old male who presents to [facility] with complaints of Leg Swelling, Pneumonia Involving Left Lung. The patient's primary care provider is Chavez Young M.D.. 82-year-old gentleman admitted for hypoxemia and notable left upper lobe infiltrate. Patient has a PmHx significant for: Coronary artery disease, peripheral vascular disease, chronic kidney disease, diastolic heart failure, Parkinson's disease and atrial fibrillation. He was in his normal state health until about 10 days ago when he started noticing increasing shortness of breath with exertion. He can normally walk 3 miles a day with no notable fatigue but over the last 10 days is only been able to walk for 5-10 minutes without experiencing shortness of breath and having to rest. He does note some mild yellow productive sputum intermittently over this time but denies: Fever, chills, pleurisy, classic cardiac chest pain, unintentional weight loss, rigors , chills, recent travel, sick contacts. His is at the bedside an affirm this history. Patient was seen by his PCP physician and started on albuterol inhaler and azithromycin with minimal benefit. In the ED the patient was noted be at 88% on room air and hypertensive but otherwise stable. Studies: Bun/Cr: 38/1.76 WBC: 9K (Neut#: > 7.53) PLT: 193K INR: 1.3 aPTT: >40.1 PT: >13.4 Pro-BNP: >>>7045 Troponin: <0.015 Influenza A&B: negative EKG: A-fib with rate 73, T wave inversion inferior and lateral leads CXR 11/01/16 compared to 10/26/17: new KRISTINE infiltrative process CT Chest: o KRISTINE infiltrative process o Small bilateral pleural effusions R>L o Hilar and mediastinal adenopathy Active Problems 1. Abnormal chest xray 2. Abnormal EKG 3. Acid reflux 4. Acute diastolic congestive heart failure 5. Anemia 6. Bradycardia 7. CAD in [place] artery 8. Carotid artery stenosis 9. Chronic constipation 10. Chronic kidney disease, stage 3 11. Cough 12. Dyslipidemia 13. Edema 14. Generalized osteoarthritis of unspecified site 15. Gout 16. Hypertension 17. Hypothyroidism (E03.9) 18. PAD (peripheral artery disease) 19. Parkinson's disease 20. Permanent atrial fibrillation 21. Secondary hyperparathyroidism 22. Tremor of left hand 23. History of Acute deep vein thrombosis of lower extremity 24. History of Acute subdural hematoma Surgical History 1. History of Appendectomy 2. History of Carotid Thromboendarterectomy 3. History of Interruption Inferior Vena Cava [place] Filter Placement 4. History of Interruption Inferior Vena Cava [place] Filter Placement 5. History of Surgery Vas Deferens Vasectomy 6. History of Tonsillectomy 7. History of Transcath Intravascular Stent Placement Percutaneous Renal Family History . Family history of Diabetes Mellitus 2. Denied: Family history of Chronic Kidney Disease (NKF Classification) Social History Being A Social Drinker Former smoker Marital History - Currently Retired From Work Uses Safety Equipment - Seatbelts Current Meds 1. RaNITidine HCl - 150 MG Oral Tablet; TAKE 1 TABLET EVERY 12 HOURS NEEDED ; 2. Furosemide 40 MG Oral Tablet; TAKE 1 TABLET DAILY Requested for: 26Jan2017 ; Last 3. Nitrostat 0.4 MG Sublingual Tablet Sublingual; DISSOLVE 1 TABLET UNDER THE 4. Metoprolol Tartrate 25 MG Oral Tablet; TAKE (1/2) TABLET TWICE DAILY; 5. Azithromycin 250 MG Oral Tablet; TAKE 2 TABLETS ON DAY 1 THEN TAKE 1 TABLET A 6. Vytorin 10-20 MG Oral Tablet; TAKE 1 TABLET DAILY DIRECTED Requested for: 7. Allopurinol 100 MG Oral Tablet; TAKE 2 TABLETS DAILY Requested for: 26Jan2017; Last 8. Multi-Vitamin Oral Tablet; TAKE 1 TABLET DAILY; 9. AmLODIPine Besylate 10 MG Oral Tablet; TAKE 1 TABLET DAILY; 10. CloNIDine HCl - 0.2 MG Oral Tablet; TAKE 2 TABLET 3 times daily; 11. Levothyroxine Sodium 88 MCG Oral Tablet; TAKE 1 TABLET DAILY; 12. Clopidogrel Bisulfate 75 MG Oral Tablet; TAKE 1 TABLET DAILY Requested for: 13. Carbidopa-Levodopa 25-100 MG Oral Tablet; TAKE 1 TABLET 3 times daily; 14. Pradaxa 75 MG Oral Capsule; Take 1 capsule twice daily 15. Calcitriol 0.5 MCG Oral Capsule; TAKE 1 CAPSULE Every morning Requested for: 16. Ventolin HFA 108 (90 Base) MCG/ACT Inhalation Aerosol Solution; INHALE 1 TO 2 PUFFS Allergies 1. HydrALAZINE HCl TABS Historian: patient, family, EMS Review of Systems Constitutional: reports: malaise, weakness Eyes: reports: no symptoms ENT: reports: no symptoms Cardiovascular: reports: no symptoms Respiratory: reports: as stated in HPI Gastrointestinal: reports: no symptoms Genitourinary - Male: reports: no symptoms Musculoskeletal: reports: no symptoms Integumentary: reports: no symptoms Neurologic: reports: no symptoms Psychiatric: reports: no symptoms Hematologic / Lymphatic: no symptoms Allergic / Immunologic: no symptoms Past Medical History Past Medical History: Please refer to HPI Past Surgical History: Please refer to HPI Family History Please refer to HPI Social History Please refer to HPI Hx Tobacco Use In Past Year?: No Smoking Status: Former Smoker Marital status: Occupational Status: retired Immunizations History of Influenza Vaccine: Yes History of Tetanus Vaccine?: Yes History of Pneumococcal: Yes History of Hepatitis B Vaccine: Unknown History of MDRO History of MDRO: No Allergies Coded Allergies: Hydralazine (Verified Allergy, Unknown, anorexia,h/a,nausea,palpitations, 11/01/17) Current Medications Reported Home Medications Medications Dose Route/Sig Max Daily Dose Days Date Category Ventolin Hfa (Albuterol) 200 Puffs/48777 Mcg Aers 1-2 Puffs INH Q6H PRN 11/01/17 Reported Pradaxa (Dabigatran Etexilate Mesylate) 75 Mg Cap 75 Mg PO BID 11/01/17 Reported Nitrostat (Nitroglycerin) 0.4 Mg Sub 0.4 Mg UT UD PRN 11/01/17 Reported Lopressor (Metoprolol Tartrate) 25 Mg Tab 12.5 Mg PO BID 11/01/17 Reported Levothyroxine Sodium 88 Mcg Tab 1 Tab PO DAILY 11/01/17 Reported Catapres (Clonidine Hcl) 0.2 Mg Tab 2 Tabs PO TID 11/01/17 Reported Sinemet 25MG/100MG (Carbidopa/Levodopa) Tab 1 Tab PO TID 11/01/17 Reported Rocaltrol (Calcitriol) 0.5 Mcg Cap 0.5 Mcg PO QAM 11/01/17 Reported Norvasc (Amlodipine Besylate) 10 Mg Tab 10 Mg PO DAILY 11/01/17 Reported Zyloprim (Allopurinol) 100 Mg Tab 200 Mg PO DAILY 11/01/17 Reported Zantac (Ranitidine HCl) 150 Mg Tab 150 Mg PO Q12 PRN 11/28/14 Reported Plavix (Clopidogrel Bisulfate) 75 Mg Tab 75 Mg PO DAILY 01/31/08 Reported Multivitamin (Multivitamins) Tab 1 Tab PO DAILY 01/31/08 Reported Lasix (Furosemide) 40 Mg Tab 40 Mg PO DAILY 01/31/08 Reported Vytorin 10MG/20MG (Ezetimibe/Simvastatin) Tab 10-20 Tab PO QPM 01/31/08 Reported Physical Physical Exam Vital Signs: Date Time Temp Pulse Resp B/P (MAP) Pulse Ox O2 Delivery O2 Flow Rate FiO2 11/02/17 12:10 36.6 73 18 164/70 (101) 94 Nasal Cannula 2.0 11/02/17 12:00 Nasal Cannula 2.0 11/02/17 08:10 36.8 73 18 181/68 (105) 96 Nasal Cannula 2.0 11/02/17 08:00 Nasal Cannula 2.0 11/02/17 04:05 Nasal Cannula 2.0 11/02/17 03:49 36.9 79 16 180/68 (105) 95 Nasal Cannula 2.0 11/02/17 02:05 69 16 94 Nasal Cannula 2.0 11/02/17 00:45 79 156/56 (89) 96 Nasal Cannula 2.0 11/02/17 00:05 Nasal Cannula 2.0 11/01/17 23:31 37.0 70 18 171/56 (94) 95 Nasal Cannula 2.0 11/01/17 20:18 37.3 80 18 156/54 (88) 96 Nasal Cannula 2.0 11/01/17 20:05 Nasal Cannula 2.0 11/01/17 19:43 72 16 93 Nasal Cannula 2.0 11/01/17 16:00 Nasal Cannula 2.0 11/01/17 15:25 37.0 86 22 168/71 (103) 94 Nasal Cannula 2.0 11/01/17 14:20 81 16 93 Nasal Cannula 2.0 General Appearance: mild distress Head: NORMOCEPHALIC, ATRAUMATIC Eyes: PERRLA, NO DISCHARGE, EOMI, SCLERAE NORMAL ENT: NORMAL EAR EXAM, NORMAL NASAL EXAM, NORMAL MOUTH EXAM, NORMAL THROAT EXAM , NORMAL DENTAL EXAM Neck: NORMAL RANGE OF MOTION, NO TENDERNESS, TRACHEA MIDLINE Respiratory: other (Bilateral expiratory wheezes ) Cardiovasular: other (Irregular rate and rhythm distant heart sounds unable to auscultate for murmurs rubs or gallops) Abdomen: NON TENDER, NORMAL BOWEL SOUNDS, NO REBOUND, NO GUARDING, NO ORGANOMEGALY, NORMAL RECTAL EXAM Genitourinary - Male: EXTERNAL GENITALIA NORMAL Back: NORMAL INSPECTION, NO MIDLINE TENDERNESS Upper Extremities: NO EDEMA, NO DEFORMITY, NORMAL ROM Lower Extremities: edema Edema: Bilateral LE (1+) Neuro: ALERT, ORIENTED x 3, NORMAL MOTOR EXAM, NORMAL SENSATION, NORMAL CEREBELLAR EXAM Reflexes: biceps (R) (2+), bicpes (L) (2+), patellar (R) (2+), patellar (L) (2+ ) Babinski Testing: right (downgoing), left (downgoing) Psychiatric: NORMAL AFFECT, NO SUICIDAL IDEATION, CONTRACTS FOR SAFETY Diagnostics Labs Results Past 24 Hours Test 11/01/17 16:51 11/01/17 20:30 11/02/17 07:18 11/02/17 11:04 Range/Units Bedside Glucose 226 250 184 170 70-99 mg/dl Test 11/02/17 13:10 Range/Units Microbiology Results 11/01/17 MRSA DNA Surveillance Screen - Final, Complete Specimen Negative for MRSA by DNA Probe 11/02/17 Gram Stain, Received Pending 11/02/17 Sputum Culture, Received Pending Diagnostic Radiology Please refer to HPI EKG Please refer to HPI Impression Assessment and Plan 82-year-old gentleman admitted with hypoxemia new right upper lobe infiltrate: 1. Hypoxemia: At this time it does appear the patient has a notable community- acquired pneumonia. I do agree with current Levaquin at 750 mg daily and would continue this for 7 day window. Patient is also currently treated with Solu- Medrol but has no history of COPD or asthma. This time I will change him to prednisone 50 mg daily for total of 7 days. There is no randomized controlled trial at this time noting benefit of steroids when associated with commute acquired pneumonia is requiring hospitalizations. There is some minor but not statistically significant benefit and reducing mortality by 3%, mechanical ventilation by approximately 5% and hospital stay approximately 1 day. At this time they are performing a randomized control intention to treat study called STEP which is looking into this particular issue and in the steroid control group using 50 mg of prednisone daily. 2. Left upper lobe infiltrate: As there is a dramatic change in the patient's CXR from 10/26/2017 and his new 1 on 11/01/2016 this is most likely an acute process but I do suggest we follow this up in a 6 week window to help confirm resolution. 2. Mucus clearance: Patient is having difficulty with mucus clearance will initiate dornase and vest physiotherapy.
--- NOTE | 2017-11-02 15:40 | ECHOCARDIOGRAM REPORT ---
*NOTICE TO RECEIVING [employer] This information is strictly Confidential and protected under [place] law. [place] law prohibits you from making any further disclosure of this information unless further disclosure is expressly permitted by the written consent of the person to whom it pertains or is authorized by law. A general authorization for the release of medical or other information is not sufficient for this purpose. Hospital accepts no responsibility if the information is made available to any other person, INCLUDING THE PATIENT. Interpretation Summary * Name: RONNIE HAUSER Study Date: 11/02/2017 07:08 AM BP: 180/68 mmHg * Patient Location: .MED\S\N280\S\2 HR: 79 * : 1935 (M/d/yyyy) Gender: Male Height: 68 in * Age: 82 yrs Ethnicity: CA Weight: 174 lb * Ordering Physician: Eugenio Chang * Referring Physician: Self, Referred * Performed By: [facility] * * Reason For Study: CHF * BSA: 1.9 m2 * -- Conclusions -- * 1. Normal LV size. Normal LV wall thickness. * 2. Normal LV systolic function. LVEF 60-65%. No regional wall motion abnormalities. * 3. Normal RV size and function. * 4. Mild mitral regurgitation * 5. Mild tricuspid regurgitation. Severe pulmonary hypertension. Estimated PASP>90. Normal est RA. * 6. Compared with prior study on 02/01/2007: Severe pulmonary hypertension is new Procedure Details * A complete two-dimensional transthoracic echocardiogram was performed (2D, M-mode, Doppler and color flow Doppler). Left Ventricle * The left ventricle is grossly normal size. * There is normal left ventricular wall thickness. * Ejection Fraction = 60-65%. * No regional wall motion abnormalities noted. Right Ventricle * The right ventricle is grossly normal size. * The right ventricular systolic function is normal as assessed by tricuspid annular plane systolic excursion (TAPSE) (normal >1.5 cm). Atria * The left atrium is mildly dilated. * The right atrium is moderately dilated. Mitral Valve * The mitral valve anatomy is normal. * There is no mitral valve stenosis. * There is mild mitral regurgitation. Tricuspid Valve * The tricuspid valve is not well visualized, but is grossly normal. * Tricuspid stenosis is absent. * There is mild to moderate tricuspid regurgitation. * Right ventricular systolic pressure is elevated at >60mmHg. Aortic Valve * The aortic valve opens well. * No hemodynamically significant valvular aortic stenosis. * There is no significant aortic regurgitation. Pulmonic Valve * The pulmonary valve is inadequately visualized, but the Doppler data is adequate for interpretation. * There is no pulmonic valvular stenosis. * Mild pulmonic valvular regurgitation. Great Vessels * The aortic root and proximal ascending aorta are normal sized. Pericardium/Pleural * There is no pericardial effusion. Great Vessels * Normal inferior vena cava size and collapsability with sniff indicates a normal right atrial pressure of 3 mmHg MMode 2D Measurements and Calculations IVSd 1.1 cm IVSs 1.5 cm LVIDd 4.9 cm LVIDs 3.1 cm LVPWd 1.1 cm LVPWs 1.5 cm IVS/LVPW 1.0 FS 36.4 % EDV(Teich) 114.0 ml ESV(Teich) 38.8 ml EF(Teich) 66.0 % EDV(cubed) 119.3 ml ESV(cubed) 30.6 ml EF(cubed) 74.3 % % IVS thick 35.5 % % LVPW thick 45.5 % LV mass(C)d 196.4 grams LV mass(C)dI 101.9 grams/m\S\2 LV mass(C)s 169.1 grams LV mass(C)sI 87.8 grams/m\S\2 SV(Teich) 75.2 ml SI(Teich) 39.1 ml/m\S\2 SV(cubed) 88.6 ml SI(cubed) 46.0 ml/m\S\2 Ao root diam 3.3 cm Ao root area 8.5 cm\S\2 ACS 1.9 cm LA dimension 5.2 cm asc Aorta Diam 2.7 cm LA/Ao 1.6 Doppler Measurements and Calculations MV E max mateo 147.7 cm/sec MV A max mateo 53.4 cm/sec MV E/A 2.8 MV P1/2t max mateo 161.8 cm/sec MV P1/2t 67.3 msec MVA(P1/2t) 3.3 cm\S\2 MV dec slope 704.6 cm/sec\S\2 MV dec time 0.15 sec Ao V2 max 126.2 cm/sec Ao max PG 6.4 mmHg Ao max PG (full) -0.55 mmHg LV V1 max PG 6.9 mmHg LV V1 max 131.4 cm/sec PA V2 max 135.4 cm/sec PA max PG 7.3 mmHg TR max mateo 432.5 cm/sec
[2017-11-02] MEDS: DORNASE ALFA 2.5 ML AMP INH SCH (20:00)
[2017-11-02] MEDS: EZETIMIBE/SIMVASTATIN 10/20 TAB PO SCH (20:39)
[2017-11-02] MEDS ORDERED: DORNASE ALFA 2.5 ML AMP INH SCH (21:00)
[2017-11-03] VITALS (14 sets, daily range): BP systolic 168–183; BP diastolic 56–83; PULSE 72–98; TEMP 36.4–36.7; O2SAT 90–98
[2017-11-03] MEDS: IPRATROPIUM BROMIDE NEB SOLN 0.02% 2.5 ML VIAL INH SCH ×3 (01:48→14:23)
[2017-11-03] MEDS: LEVALBUTEROL 1.25MG/0.5ML NEB INH SCH ×3 (01:48→14:23)
[2017-11-03] MEDS: LEVOTHYROXINE 88 MCG TAB PO SCH (05:51)
[2017-11-03 06:31] LABS: CREATININE 1.97 mg/dl (0.60-1.40)
[2017-11-03] MEDS: BUDESONIDE 0.5 MG/2 ML VIAL (PULMICORT) INH SCH (07:31)
[2017-11-03] MEDS: DORNASE ALFA 2.5 ML AMP INH SCH (07:31)
[2017-11-03] MEDS: ALLOPURINOL 100 MG TAB PO SCH (07:44)
[2017-11-03] MEDS: AMLODIPINE BESYLATE 5 MG TAB PO SCH (07:44)
[2017-11-03] MEDS: METOPROLOL TARTRATE 25 MG TAB PO SCH (07:45)
[2017-11-03] MEDS: CALCITRIOL 0.25 MCG CAP PO SCH (07:45)
[2017-11-03] MEDS: CARBIDOPA/LEVODOPA 25/100MG TAB PO SCH ×2 (07:45→14:01)
[2017-11-03] MEDS: CLOPIDOGREL BISULFATE 75 MG TAB PO SCH (07:45)
[2017-11-03] MEDS: GUAIFENESIN 200 MG TAB PO SCH (07:46)
[2017-11-03] MEDS: DABIGATRAN ELEXILATE 75 MG CAP PO SCH (07:48)
[2017-11-03] MEDS: CLONIDINE HCL 0.1 MG TAB PO SCH ×2 (07:48→14:01)
[2017-11-03] MEDS: MULTIVITAMIN TAB PO SCH (07:48)
[2017-11-03] MEDS ORDERED: OXGN ×2 (09:14→16:07)
--- NOTE | 2017-11-03 14:52 | Pulmonology Progress Note ---
Pulmonary Progress Note Date of Service Nov 03, 2017. Attending Dr. Epps Subjective Patient notes he is improving over the last 24 hours and currently able to ambulate. He does note dyspnea with ambulation but is notably improved as compared to the week prior to admission. Objective Patient is sitting up in a chair able to have full conversation was no signs of accessory muscle use or tachypnea. No signs of respiratory insufficiency. He also denies: Fever, chills. He does note mild improvement and mucus production after initiating dornase and vest physiotherapy. Vital signs: Stable on 1-2 liters nasal cannula Respiratory: Mild rhonchi left upper lobe minimal wheezing globally Cardiac: S1-S2 irregular rate and rhythm Abdomen: Positive bowel sounds soft nontender Extremities: Within normal limits General: No apparent distress orientated x3 Echocardiogram 11/02/2017 LV: EF-60-65%, RV: TAPSE > 1.5cm LA : mildly dilated RA: moderately dilated TV: mild to moderate regurgitation RSVP: >60mmHg IVD: Normal size and collapsibility with sniff indicating normal right atrial pressures, 3mmHg Assessment & Plan 82-year-old gentleman admitted with shortness of breath/hypoxia and right upper lobe infiltrate: 1. Hypoxia: It. Initially that the patient's hypoxemia was secondary to his community-acquired pneumonia and responding well to Levaquin 750 mg daily as well as dornase, chest physiotherapy and inhaler regimen along with Solu- Medrol. I should once again state that the patient and studies in the past only suggest Solu-Medrol be placed on a non COPD patient for a 5-7 day window at 50 mg daily then immediately discontinued. Patient did have an echocardiogram which was read as suggestive of severe pulmonary hypertension which could be adding on to his hypoxemia. 2. Pulmonary Hypertension: Patient's pulmonary hypertension could be secondary to the patient's acute hypoxemia or possibly even chronically seen as the patient does have a mildly increased pulmonary artery to aorta ratio. There is some mixed data within the echocardiogram as the patient's TAPSE is still > 1.5cm, IVC shows normal collapsibility suggesting normal right atrial pressures at 3 mmHg but the moderate tricuspid regurgitation, moderately dilated right atrium and elevated RSVP are worrisome. At this time this will require follow-up after the patient is back to his baseline. 3. Left upper lobe infiltrate: There is a dramatic change the patient's CXR from 10/26/2019 18 to 1 performed 11/01/2016. This does suggest the recent CXR shows acute change leading to differential diagnosis with infection highest on the list. I do suggest we follow this up in a 6 week window to confirm resolution. Data Medications: Current Inpatient Medications Medications (Trade) Dose Ordered Sig/Amado Route Start Time Stop Time Status Last Admin Dose Admin Acetaminophen (Tylenol Tab) 650 mg Q4H PRN PO 11/01/17 03:30 12/01/17 03:29 Al Hydrox/Mg Hydrox/Simethicone (Maalox Max Susp) 15 ml Q4H PRN PO 11/01/17 03:30 12/01/17 03:29 Magnesium Hydroxide (Milk Of Magnesia Susp) 30 ml Q12H PRN PO 11/01/17 03:30 12/01/17 03:29 Nitroglycerin (Nitrostat Tab) 0.4 mg UD PRN SL 11/01/17 03:30 12/01/17 03:29 Polyethylene (Miralax Powder Packet) 17 gm DAILY PRN PO 11/01/17 03:30 12/01/17 03:29 Allopurinol (Zyloprim Tab) 200 mg DAILY PO 11/01/17 09:00 12/01/17 08:59 11/03/17 07:44 200 MG Amlodipine Besylate (Norvasc Tab) 10 mg DAILY PO 11/01/17 09:00 12/01/17 08:59 11/03/17 07:44 10 MG Carbidopa/Levodopa (Sinemet 25/ 100MG Tab) 1 tab TID PO 11/01/17 09:00 12/01/17 08:59 11/03/17 14:01 1 TAB Clopidogrel Bisulfate (plAVix TAB) 75 mg DAILY PO 11/01/17 09:00 12/01/17 08:59 11/03/17 07:45 75 MG Dabigatran (Pradaxa Cap) 75 mg BID PO 11/01/17 09:00 12/01/17 08:59 11/03/17 07:48 75 MG Furosemide (Lasix Tab) 40 mg DAILY PO 11/01/17 09:00 12/01/17 08:59 Future Hold 11/01/17 07:57 40 MG Levothyroxine Sodium (Synthroid Tab) 88 mcg DAILYBB PO 11/01/17 06:30 12/01/17 06:29 11/03/17 05:51 88 MCG Metoprolol Tartrate (Lopressor Tab) 12.5 mg BID PO 11/01/17 09:00 12/01/17 08:59 11/03/17 07:45 12.5 MG Multivitamins (Multivitamin Tab) 1 tab DAILY PO 11/01/17 09:00 12/01/17 08:59 11/03/17 07:48 1 TAB Calcitriol (Rocaltrol Cap) 0.5 mcg QAM PO 11/01/17 09:00 12/01/17 08:59 11/03/17 07:45 0.5 MCG Clonidine HCl (Catapres Tab) 0.2 mg TID PO 11/01/17 09:00 12/01/17 08:59 11/03/17 14:01 0.2 MG Guaifenesin (Organidin Nr Tab) 600 mg BID PO 11/01/17 09:00 12/01/17 08:59 11/03/17 07:46 600 MG Budesonide (Pulmicort Respules 0.5MG/ 2ML Neb Soln) 0.5 mg BIDR INH 11/01/17 08:00 12/01/17 07:59 11/03/17 07:31 0.5 MG Ipratropium Frederick (Atrovent 0.02% 0.5MG/2.5ML Neb) 0.5 mg Q6R INH 11/01/17 09:00 12/01/17 08:59 11/03/17 14:23 0.5 MG Levalbuterol (Xopenex 1.25MG/ 0.5ML Neb) 1.25 mg Q6R INH 11/01/17 09:00 12/01/17 08:59 11/03/17 14:23 1.25 MG Ipratropium Frederick (Atrovent 0.02% 0.5MG/2.5ML Neb) 0.5 mg Q2H PRN INH 11/01/17 03:45 12/01/17 03:44 11/03/17 04:23 0.5 MG Levalbuterol (Xopenex 1.25MG/ 0.5ML Neb) 1.25 mg Q2H PRN INH 11/01/17 03:45 12/01/17 03:44 11/03/17 04:23 1.25 MG Levofloxacin (Consult) 1 ea UD PRN N/A 11/01/17 05:15 12/01/17 05:14 Ezetimibe/ Simvastatin (Vytorin 07/10 Tab) 1 tab QPM PO 11/01/17 21:00 12/01/17 20:59 11/02/17 20:39 1 TAB Levofloxacin 750 mg/Prmx 150 ml @ 100 mls/hr Q48H IV 11/02/17 06:00 11/09/17 05:59 11/02/17 05:23 100 MLS/HR Dornase Chandana (Pulmozyme Inhalation Soln 2.5ml Amp) 2.5 ml BIDR INH 11/02/17 20:00 11/05/17 19:59 I & O: 24-Hour Column 11/04/17 08:00 Intake Total 1510 ml Output Total 450 ml Balance 1060 ml Vital Signs: Date Time Temp Pulse Resp B/P (MAP) Pulse Ox O2 Delivery O2 Flow Rate FiO2 11/03/17 14:23 89 18 98 Nasal Cannula 1.0 11/03/17 14:08 90 Room Air 11/03/17 12:00 36.6 78 20 183/77 (112) 90 Room Air 11/03/17 09:41 78 171/56 (94) 94 Nasal Cannula 2.0 11/03/17 08:00 92 Nasal Cannula 2.0 11/03/17 07:41 36.7 98 20 181/78 (112) 93 Nasal Cannula 2.0 183/65 (104) 11/03/17 07:31 84 18 98 Nasal Cannula 1.0 11/03/17 04:23 72 18 93 Nasal Cannula 2.0 11/03/17 04:22 95 Nasal Cannula 2.0 11/03/17 04:09 36.4 74 22 175/74 (107) 95 Nasal Cannula 2.0 11/03/17 00:03 92 Nasal Cannula 2.0 11/02/17 23:50 36.8 69 18 162/70 (100) 95 2.0 11/02/17 20:28 36.5 75 19 177/69 (105) 96 Nasal Cannula 2.0 11/02/17 20:22 92 Nasal Cannula 2.0 2/12/18 20:02 86 16 94 Nasal Cannula 2.0 11/02/17 16:09 92 Nasal Cannula 2.0 11/02/17 15:45 36.6 80 20 167/68 (101) 92 Nasal Cannula 2.0 Laboratory Results: Last 24 Hours Test 11/02/17 21:04 11/03/17 05:14 11/03/17 07:33 Bedside Glucose 218 mg/dl 164 mg/dl Creatinine 1.97 mg/dl Est Creatinine Clear Calc Drug Dose 27.0 ml/min Estimated GFR () 35.1 Estimated GFR (Non- 30.3
[2017-11-03] MEDS ORDERED: IPRA1AER2 INH (16:07)
[2017-11-03] MEDS ORDERED: LVQ750 PO (16:07)
[2017-11-03] MEDS ORDERED: GUAI1TAB68 PO (16:07)
--- NOTE | 2017-11-03 16:10 | Discharge Instructions ---
Discharge Instructions Date of Service Nov 03, 2017. Admission Reason for Admission: Leg Swelling, Pneumonia Involving Left Lung Discharge Discharge Diagnosis / Problem: left upper lobe pneuomonia Discharge Goals Goal(s): Diagnostic testing, Therapeutic intervention Activity Recommendations Activity Limitations: as noted below Lifting Limitations: gradually increase as tolerated .82 M with Acute respiratory failure with hypoxia/left upper lobe pneumonia-- negative influenza Pneumonia will be taking Levofloxacin 750 mg every two days for 4 additional doses Guaifenesin extended release 600 mg by mouth twice a day Combivent inhaler tapering doses of prednisone Pulmonary medicine follow up with DR Epps oxygen with activity and sleep and as needed Afib/Hypertension-- Plavix 75 mg p.o. daily, metoprolol tartrate 12.5 mg p.o. twice daily, clonidine 0.2 mg 2 tabs cirrhosis p.o. 3 times daily, amlodipine 10 mg p.o. daily, Pradaxa 75 mg p.o. twice daily and furosemide 40 mg daily Hyperlipidemia-- Zetia/simvastatin 10/20 p.o. daily Hypothyroidism--levothyroxine sodium 88 mcg p.o. daily Parkinsonism-- carbidopa/levodopa 25/100 p.o. 3 times daily Gout--allopurinol 200 mg p.o. daily Current Hospital Diet Patient's current hospital diet: AHA Diet (Heart Healthy), Diabetes Type 2 Diet Discharge Diet Recommended Diet: Regular Diet Pending Studies Studies pending at discharge: no Laboratory Results Hemoglobin A1c Test 10/07/17 07:13 Range/Units Estimated Average Glucose 128 mg/dl Hemoglobin A1c 6.1 H 4.5-5.6 % Lipid Panel Test 10/07/17 07:13 Range/Units Triglycerides Level 73 0-150 mg/dl Cholesterol Level 101 0-200 mg/dl HDL Cholesterol 57 mg/dl Cholesterol/HDL Ratio 1.8 LDL Cholesterol, Calculated 29 mg/dl Medical Emergencies . Who to Call and When: Medical Emergencies: If at any time you feel your situation is an emergency, please call 911 immediately. . Non-Emergent Contact Non-Emergency issues call your: Primary Care Provider, Histologist Call Non-Emergent contact if: temperature is above 101, your pain is unusual for you . . "Provider Documentation" section prepared by Eugenio Chang. . VTE Core Measure Inpt VTE Proph given/why not?: Unfractionated heparin SQ
[2017-11-03] MEDS ORDERED: PRED10TA PO (16:12)
--- NOTE | 2017-11-03 18:26 | Discharge Summary ---
Discharge Summary Date of Service Nov 03, 2017. Discharge Summary Admission Date: Nov 01, 2017 at 03:08 Discharge Date: Nov 03, 2017 Discharge Disposition: Home with services Principal Diagnosis: left upper lobe pneumonia acute hypoxic respiratory failure requiring 02 Immunizations: Have You Had Influenza Vaccine: Yes History of Tetanus Vaccine?: Yes History of Pneumococcal: Yes History of Hepatitis B Vaccine: Unknown Consultations: Dr. Epps Medication Reconciliation New Medications: Home O2 Therapy (Oxygen) Gas 2 LITERS NA UD, #1 UNIT with exertion sleep and as needed for sob home and portable equipment Ipratropium-Albuterol (Combivent Respimat) 1 Aer Aer 1 PUFFS INH QID, #1 INH Prednisone Tab (Prednisone) 10 Mg Tab 10 MG PO UD, #42 TAB 4 a day for 4 days then 3 a day for 4 days then 2 a day for 4 days then 1 a day Guaifenesin (Organ-I Nr) 200 Mg Tab 600 MG PO BID, #30 TAB Levofloxacin (Levofloxacin) 750 Mg Tab 750 MG PO Q2D@1100, #4 TAB Continued Medications: Allopurinol (Zyloprim) 100 Mg Tab 200 MG PO DAILY, TAB Amlodipine (Norvasc) 10 Mg Tab 10 MG PO DAILY, TAB Calcitriol (Rocaltrol) 0.5 Mcg Cap 0.5 MCG PO QAM Carbidopa/Levodopa (Sinemet 25MG/100MG) Tab 1 TAB PO TID, TAB Clonidine Hcl (Catapres) 0.2 Mg Tab 2 TABS PO TID, TAB Clopidogrel (Plavix) 75 Mg Tab 75 MG PO DAILY, 0 Refills Dabigatran Etexilate Mesylate (Pradaxa) 75 Mg Cap 75 MG PO BID, CAP Ezetimibe/Simvastatin (Vytorin 10MG/20MG) Tab 10 - 20 TAB PO QPM, 0 Refills Furosemide (Lasix) 40 Mg Tab 40 MG PO DAILY, 0 Refills Levothyroxine Sodium (Levothyroxine Sodium) 88 Mcg Tab 1 TAB PO DAILY, TAB 3 Refills Metoprolol Tartrate (Lopressor) (Lopressor) 25 Mg Tab 12.5 MG PO BID, TAB Multivitamin (Multivitamin) Tab 1 TAB PO DAILY, 0 Refills Nitroglycerin (Nitrostat) 0.4 Mg Sub 0.4 MG UT UD PRN for Chest Pain Ranitidine Hcl (Zantac) 150 Mg Tab 150 MG PO Q12 PRN for Heartburn Discontinued Medications: Albuterol Hfa (Ventolin Hfa) 200 Puffs/51192 Mcg Aers 1-2 PUFFS INH Q6H PRN for SOB/Wheezing, INHALER Discharge Exam Review of Systems: Constitutional: + weakness, No fever, No chills Respiratory: + cough, + sputum, + dyspnea on exertion Cardiovascular: No chest pain, No orthopnea, No edema Abdomen: No pain, No nausea, No vomiting, No diarrhea Physical Exam: General Appearance: WD/WN, + mild distress Respiratory/Chest: chest non-tender, no respiratory distress, no accessory muscle use, + decreased breath sounds, + rales (left upper lobe) Cardiovascular: regular rate, rhythm, no murmur Hospital Course 82 M with Acute respiratory failure with hypoxia/left upper lobe pneumonia--was not initially tested for influenza this was negative Acute hypoxic respiratory failure, Xopenex/Atrovent nebulizers Tapering by mouth prednisone, Nasal cannula oxygen at 2 L with exertion and with sleep plus when necessary Pneumonia Levofloxacin 750 mg by mouth every 48 hours, Guaifenesin extended release 600 mg by mouth twice a day We'll follow up with Dr. Epps our pulmonary consult Afib/Hypertension-- Plavix 75 mg p.o. daily, metoprolol tartrate 12.5 mg p.o. twice daily, clonidine 0.2 mg, amlodipine 10 mg p.o. daily, Pradaxa 75 mg p.o. twice daily and furosemide 40 mg daily, echo shows normal EF mild MR kristi Resolved we'll review resume his home furosemide dosing Hyperlipidemia-- Zetia/simvastatin 10/20 p.o. daily Hypothyroidism--levothyroxine sodium 88 mcg p.o. daily Parkinsonism-- carbidopa/levodopa 25/100 p.o. 3 times daily Gout--allopurinol 200 mg p.o. daily Total Time Spent: Greater than 30 minutes This includes examination of the patient, discharge planning, medication reconciliation, and communication with other providers. Discharge Instructions Please refer to the electronic Patient Visit Report (Discharge Instructions) for additional information.
[2017-11-04] MEDS ORDERED: LEVOFLOXACIN 750 MG TAB PO SCH (11:00)
== END 2017-11-03 18:08 | disposition home or self-care (01) | DRG 193 ==
LOC: C.EDB 00:49 → C.MED 03:08 → ENRESERV 03:42
PROVIDERS: ADMIT Hospitalist; ATTEND Internal Medicine
DX: J18.9 Pneumonia, unspecified organism (principal); J96.01 Acute respiratory failure with hypoxia; N17.9 Acute kidney failure, unspecified; I50.30 Unspecified diastolic (congestive) heart failure; N25.81 Secondary hyperparathyroidism of renal origin; I11.0 Hypertensive heart disease with heart failure; Z88.8 Allergy status to other drugs, medicaments and biological substances; E03.9 Hypothyroidism, unspecified; I27.20 Pulmonary hypertension, unspecified; G20 Parkinson's disease; M1A.9XX0 Chronic gout, unspecified, without tophus (tophi); I48.91 Unspecified atrial fibrillation; E78.5 Hyperlipidemia, unspecified; I25.10 Atherosclerotic heart disease of native coronary artery without angina pectoris; I73.9 Peripheral vascular disease, unspecified; Z87.891 Personal history of nicotine dependence

== ENCOUNTER → 2017-11-18 | Outpatient (CLI) | payer BC ==
[~2017-11-18] MED LIST changes: +ALLO100T PO; -ALLOPOW4 PO; +AMLO-114 PO; +CALC0.5C2 PO; +CARB25TA12 PO; +CLON0.2T PO; -CLONIPINE PO; -CTP3 PO; -DABI150C PO; +DABI1CAP PO; +GUAI1TAB68 PO; +IPRA1AER2 INH; -LEVO25TA34 PO; +LEVO88TA3 PO; +LVQ750 PO; -METO100T14 PO; +METO25TA56 PO; +NITR0.4S UT; +OXGN; +PRED10TA PO; -SPIR25TA PO; -[UNRECOGNIZED DRUG - CODE] PO
--- NOTE | 2017-11-18 10:07 | DIAGNOSTIC IMAGING REPORT ---
CHEST 2 VIEWS ROUTINE CLINICAL HISTORY: R06.02 SOB (shortness of breath)[id number] dyspnea COMPARISON STUDY: 11/01/2017 FINDINGS: Interval resolution of the left upper lobe parenchymal infiltrative change. Mild improvement in aeration both lung bases. Moderate stable cardiomegaly. Minimal bibasilar atelectasis. IMPRESSION: Improved exam with the infiltrative changes described previously essentially resolved. Mild stable cardiomegaly. Platelike atelectasis both lung bases. The above report was generated using voice recognition software. It may contain grammatical, syntax or spelling errors. Electronically signed by: Jignesh Solano M.D. 11/18/2017 10:06 AM Dictated Date/Time: 11/18/2017 10:04 AM
== END | disposition home or self-care (01) ==
LOC: C.LAB1850 09:55
PROVIDERS: ATTEND Nurse Practitioner Adult Health
DX: R06.02 Shortness of breath (principal); J98.11 Atelectasis

== ENCOUNTER → 2018-01-12 | Outpatient (CLI) | payer BC ==
[~2018-01-12] MED LIST changes: -GUAI1TAB68 PO; +ORG200 PO
== END | disposition home or self-care (01) ==
LOC: C.RC 17:48
PROVIDERS: ATTEND Internal Medicine Pulmonary Disease
DX: G20 Parkinson's disease (principal)

== ENCOUNTER → 2018-02-03 | Outpatient (CLI) | payer BC ==
[2018-02-03 17:50] LABS: ALBUMIN 3.6 gm/dl (3.4-5.0); ALKALINE PHOSPHATASE 62 U/L (45-117); ALT/SGPT 12 U/L (12-78); AST/SGOT 24 U/L (15-37); BLOOD UREA NITROGEN 31 mg/dl (7-18); CALCIUM 9.5 mg/dl (8.5-10.1); CARBON DIOXIDE 31 mmol/L (21-32); CREATININE 1.82 mg/dl (0.60-1.40); GLUCOSE 98 mg/dl (70-99); POTASSIUM 4.2 mmol/L (3.5-5.1); SODIUM 141 mmol/L (136-145); TOTAL PROTEIN 7.1 gm/dl (6.4-8.2)
== END | disposition home or self-care (01) ==
LOC: C.LAB1850 16:07
PROVIDERS: ATTEND Physician Assistant
DX: R60.9 Edema, unspecified (principal)

== ENCOUNTER → 2018-04-08 | Outpatient (CLI) | payer BC ==
[~2018-04-08] MED LIST changes: -AMLO-114 PO; +AMLO10TA3 PO
[2018-04-08 12:23] LABS: HEMATOCRIT 38.9 % (42-52); HEMOGLOBIN 12.9 g/dL (14.0-18.0); MEAN CORPUSCULAR HEMOGLOBIN 30.5 pg (25-34); MEAN CORPUSCULAR HGB CONC 33.2 g/dl (32-36); MEAN PLATELET VOLUME 11.7 fL (7.4-10.4); PLATELET COUNT 194 K/uL (130-400); RED CELL DISTRIBUTION WIDTH SD 53.5 fL (36.4-46.3); WHITE BLOOD COUNT 8.63 K/uL (4.8-10.8)
[2018-04-08 12:36] LABS: ALBUMIN 3.7 gm/dl (3.4-5.0); BLOOD UREA NITROGEN 29 mg/dl (7-18); CALCIUM 9.2 mg/dl (8.5-10.1); CARBON DIOXIDE 28 mmol/L (21-32); CREATININE 1.81 mg/dl (0.60-1.40); GLUCOSE 98 mg/dl (70-99); PHOSPHORUS 3.7 mg/dl (2.5-4.9); POTASSIUM 4.1 mmol/L (3.5-5.1); SODIUM 139 mmol/L (136-145)
[2018-04-08 12:40] LABS: HEMOGLOBIN A1C 6.4 % (4.5-5.6)
== END | disposition home or self-care (01) ==
LOC: C.LAB1850 10:49
PROVIDERS: ATTEND Emergency Medicine
DX: I12.9 Hypertensive chronic kidney disease with stage 1 through stage 4 chronic kidney disease, or unspecified chronic kidney disease (principal); N25.81 Secondary hyperparathyroidism of renal origin; D64.9 Anemia, unspecified; N18.3 Chronic kidney disease, stage 3 (moderate); R60.9 Edema, unspecified; R73.03 Prediabetes

== ENCOUNTER → 2018-04-27 | Outpatient (CLI) | payer BC ==
--- NOTE | 2018-04-28 05:25 | PAP/PSG TECHNICIAN REPORT ---
[facility] Dump Grounds Checker Polysomnogram Report Study name: None Report date: 04/28/2018 Study date: 04/27/2018 Referring Physician: Juanis Burrows PA-C, PA-C Name: RONNIE RAMSAY Interpreting Physician: Srinivas Rouse D.O. Date of : 1935 Dump Grounds Checker: Eagle Troncoso RPS. Sex: Male Age: 82 StudyType: PSG PAP Weight: 165 lbs Height: 82 years, Height 5' 7.5" BMI: 25.46 Medications: FUROSEMIDE 40 MG, NITROSTAT 0.4 MG, METOPROLOL TARTRATE 25 MG, SPIRIVA RESPIMAT 2.5 MCG, VENTOLIN HFA 108 90 BASE, EZETIMIDE-SIMVASTATIN 10-20 MG, ALLOPURINAL 100 MG, AMLODIPINE BESYLATE 10 MG, CLONIDINE HCL 0.2 MG, LEVOTHYROXINE SODIUM 88 MCG, CLOPIDOGREL BISULFATE 75 MG, PRAXADA 75 MG, Patient History PATIENT HAD A SLEEP STUDY DONE IN FEBRUARY OF 2018 AND WAS POSITIVE FOR LUISA WITH AN AHI OF 9.6/HR. HE IS HERE TODAY FOR A CPAP TITRATION. RM 8 Parameters Monitored NPSG: E1-M2, E2-M1, Fp1-M2, Fp2-M1, F3-M2, F4-M2, F4-M1, C3-M2, C4-M2, C4-M1, O1-M2, O2-M2, O2-M1, T3-M2, T4-M1, P3-M2, P4-M1, CHIN1, CHIN2, HR, EKG, Legs, PFLOW, SNOR, FLOW, CFLOW, Tidal Volume, THOR, ABDO, SpO2, PLTH, CPRESS, ETCO2 Wave, ETCO2, pH Sleep Architecture Sleep Stages Time at Lights Off 10:53:58 PM STAGES Time (min.) TST (%) Time at Lights On 5:04:58 AM Wake 144.0 -- Total Recording Time (TRT) 371.50 min. N1 9.0 4 Total Sleep Period (TSP) 318.0 min. N2 140.0 62 Total Sleep Time (TST) 227.0min. N3 51.5 23 Awake Time 144.5 min. REM 26.5 12 Wake after Sleep Onset 118.5 min. Sleep Efficiency (SE) 61 % Sleep Onset Latency (LETI) 25.5 min. Number of Stage 1 Shifts None Awakenings 7 Stage Changes 36 Number of REM periods 3 REM 26.5 12 REM Latency 125.5 min. NREM 200.5 88 Body Position Analysis Supine Right Left Side Prone Vertical Total Sleep Time (min.) 371.0 0.0 0.0 0.00 0.0 0.0 Total Sleep Time (%) 100% 0% 0% 0 0% N/A% Total Sleep Time REM (min.) 26.5 0.0 0.0 None 0.0 0.0 Total Sleep Time NREM (min.) 200.5 0.0 0.0 None 0.0 0.0 Intermittent Wake (min.) 144.0 0.0 0.0 None 0.0 0.0 Total Sleep Period (%) 100% None None None None None Arousals Myoclonus (PLM) * Events Count Index Events Count Index Spontaneous 22 6 Events Awake (PLMW) 43 17.9 Respiratory 1 0.3 Events Asleep w/ Arousal (PLMA) 9 2.4 PLM 9 2 Events Asleep w/o Arousal (PLMS) 137 36.2 Snoring 0 0 Total Asleep 146 38.6 Total 32 8 Total 189 31 Respiratory Analysis * CA OA MA CH H RERA Total Count 0 10 5 0 11 1 26 Index 0.0 2.6 1.3 0 2.9 0 7.1 Mean Duration 0.0 23.8 32.6 0.00 25.2 17.5 25.8 Longest Duration 0.0 29.6 39.7 0.00 39.7 17.5 39.7 Respiratory Event Summary Total Supine ~Supine Right Left Prone REM NREM Apneas Count 15 15 N/A N/A N/A N/A 0 15 Index 4.0 4 N/A N/A N/A N/A 0 4 Hypopneas (4% Desat) Count 11 11 N/A N/A N/A N/A 0 11 Index 2.9 2.9 N/A N/A N/A N/A 0.0 3.3 Apneas & All Hypopneas Count 26 26 N/A N/A N/A N/A 0 26 Index 6.9 7 N/A N/A N/A N/A 0.0 7.8 Respiratory Events (Manager Surgical+All Hyp+RERA) Count 26 27 N/A N/A N/A N/A 0 26 Index 7.1 7 N/A N/A N/A N/A 2.3 7.8 Respiratory Related Arousal Count 1 27 N/A N/A N/A N/A 1 0 Index 0.3 0 N/A N/A N/A N/A 2 0 Snoring Analysis Supine Right Left Prone REM NREM Total Snore duration 0.0 min Snores count 3 N/A N/A N/A 1 2 3 Snore mean duration 0.8 Sec Snores index 1 N/A N/A N/A 2.3 0.6 0.8 TST with snoring (%) 0.0% Desaturation Event Summary: Minimum %SpO2 Event Count Mean/Min/Max Duration(sec.) Desaturation Index % Time In Bed > 90 30 37.7 / 15.3 / 55.8 7.2 71.1 86 - 90 6 36.5 / 31.3 / 40.0 3.5 28.9 81 - 85 0 N/A 0.0 0.0 76 - 80 0 N/A 0.0 0.0 71 - 75 0 N/A 0.0 0.0 66 - 70 0 N/A 0.0 0.0 61 - 65 0 N/A 0.0 0.0 56 - 60 0 N/A 0.0 0.0 51 - 55 0 N/A 0.0 0.0 < 50 0 N/A 0.0 0.0 Total REM NREM Awake <50% 0.0 min. 0.0 min. 0.0 min. 0.0 min. 51 - 60% 0.0 min. 0.0 min. 0.0 min. 0.0 min. 61 - 70% 0.0 min. 0.0 min. 0.0 min. 0.0 min. 71 - 80% 0.0 min. 0.0 min. 0.0 min. 0.0 min. 81 - 90% 102.2 min. 0.8 min. 87.7 min. 13.7 min. 91 - 100% 251.6 min. 25.7 min. 112.8 min. 113.1 min. Average 92 93 91 93 Minimum SpO2 66 89 86 66 Desaturation Event Index 4.9 2.3 6.3 3.3 # Desat. Events below 89% 19 N/A 15 4 Time(%) with Saturation below 89% 7.1 0.0 6.1 1.0 Time(min.) with Saturation below 89% 25.1 0.0 21.5 3.6 Time (mins) REM (mins) NREM (mins) % of TST SpO2 Below 90% 20 1 N19 23.1 SpO2 Below 88% 9 0 0 3 Heart Rate Analysis Min (bpm) Max (bpm) Average (bpm) Awake 31 167 47 NREM 30 48 37 REM 30 49 40 Overall 30 49 37 Supplemental O2 Values Minimum O2 level: None Value Start Time End Time Dump Grounds Checker Comments Mr. Ramsay slept in the supine positions. Irregular EKG noted at times. Leg movements noted. No bruxism noted. CPAP was initiated at +4 CMH2O and up-titrated to an optimal level of +11 CMH2O, which nearly eliminated all respiratory events and snoring. A Resmed Mirage Quattro full face size medium mask was used during titration Mr. Ramsay used to urinal 4 times during the night. Mr. Ramsay stated I did not sleep as well as I do when I am in my own bed. The final report will be interpreted and signed by a sleep physician. The completed physician report will then be placed in the patient medical record. Therapy Event: Therapy (cm H20) 4 5 6 8 9 11 Total Time at Pressure (min.) 43.1 84.6 9.6 19.0 164.0 50.8 TST at Pressure (min.) 17.6 70.1 9.6 19.0 87.5 23.3 # Periods 1 1 1 1 1 1 Sleep Onset (min.) 25.5 0.0 0.0 0.0 0.0 0.0 REM Onset (min.) N/A N/A N/A 13.7 0.0 12.8 Sleep Efficiency % 40 82 100 100 53 45 Wakefulness (%) 59.2 17.1 0.0 0.0 46.6 54.2 Wakefulness (min.) 25.5 14.5 0.0 0.0 76.5 27.5 NREM 1 (%) 4.6 4.1 0.0 0.0 2.1 0.0 NREM 1 (min.) 2.0 3.5 0.0 0.0 3.5 0.0 NREM 2 (%) 36.1 35.0 100.0 72.3 39.5 13.3 NREM 2 (min.) 15.6 29.6 9.6 13.7 64.7 6.8 NREM 3 (%) 0.0 43.7 0.0 0.0 5.2 11.8 NREM 3 (min.) 0.0 37.0 0.0 0.0 8.5 6.0 REM (%) 0.0 0.0 0.0 27.7 6.6 20.7 REM (min.) 0.0 0.0 0.0 5.2 10.8 10.5 # Arousals 0 12 1 3 15 1 Arousal Index 0.0 10.3 6.2 9.5 10.3 2.6 # Snore 0 1 0 0 1 1 Snore Index 0.0 0.9 0.0 0.0 0.7 2.6 AHI 6.8 5.1 37.4 15.8 4.8 0.0 AHI Supine 6.8 5.1 37.4 15.8 4.8 0.0 AHI Non-Supine N/A N/A N/A N/A N/A N/A NREM AHI 6.8 5.1 37.4 21.9 5.5 0.0 REM AHI N/A N/A N/A 0.0 0.0 0.0 RDI 6.8 5.1 37.4 19.0 4.8 0.0 # Obstructive 0 1 3 3 3 0 # Central Ap 0 0 0 0 0 0 # Mixed 0 1 2 1 1 0 # Hypopneas 2 4 1 1 3 0 RERAS 0 0 0 1 0 0 Total Respiratory Events 2 6 6 6 7 0 Time Below SpO2 89.00% (min.) 5.8 13.3 1.9 0.4 0.1 0.0 Mean NREM SpO2 (%) 89 89 91 91 92 93 Mean REM SpO2 (%) N/A N/A N/A 92 93 93 Mean Sleep SpO2 (%) 89 89 91 92 92 93 Min NREM SpO2 (%) 87 86 86 88 88 91 Min REM SpO2 (%) N/A N/A N/A 89 90 91 Position Supine (min.) 17.6 70.1 9.6 19.0 87.5 23.3 Position Non-supine (min.) 0.0 0.0 0.0 0.0 0.0 0.0 LM Index Sleep 0.0 3.4 18.7 12.7 91.9 2.6 LM Index NREM 0.0 3.4 18.7 13.1 102.4 0.0 LM Index REM N/A N/A N/A 11.4 16.7 5.7 Mean Heart Rate (bpm) 35 34 36 37 39 41 Min Heart Rate (bpm) 30 30 30 31 30 30
--- NOTE | 2018-05-02 14:28 | POLYSOMNOGRAPH REPORT ---
CLINICAL DATA: The patient is an 82-year-old male with a history of nocturnal hypoxia, pulmonary hypertension, excessive daytime somnolence, and Parkinson's disease. A first night sleep study done 03/08/2018 showed mild sleep apnea with an apnea hypopnea index of 9.6. There was significant decreased oxygenation. The patient was noted to have atrial fibrillation. He is referred back to the sleep disorder center for a trial of nasal CPAP. SLEEP ARCHITECTURE: The total sleep period was 318 minutes. The total sleep time was 227 minutes. The sleep efficiency was at least moderately reduced to 61%. The sleep latency is mildly prolonged at 25.5 minutes. Wake after sleep onset was prolonged to 118.5 minutes. The REM latency was 125.5 minutes. There were 3 REM periods during the night, all short in length. Sleep consisted of stage N1 4%, stage N2 62%, stage N3 23%, stage REM 12%. AROUSAL DATA: The patient had a total of 32 arousals including 22 spontaneous arousals, 1 respiratory arousal, 9 PLM arousals. The arousal index was 8. PLM DATA: The patient had 146 periodic limb movements for a PLM index of 38.6. There were 9 arousals, associated with limb movements for a PLM arousal index of 2.4. EKG: The underlying cardiac rhythm was atrial fibrillation. The cardiac rates ranged from 30-49 beats per minute with an average heart rate of 37 beats per minute. It is notable that he does take metoprolol which can decrease the heart rates. RESPIRATORY DATA: The patient's respiratory events were treated with nasal CPAP. He had a total of 26 respiratory events including 10 obstructive apneas, 5 mixed apneas, and 11 hypopneas. Hypopneas were scored according to the 4% desaturation rule. The longest apnea was 39.7 seconds. The mean duration of the hypopneas was 25.2 seconds. The apnea hypopnea index was 6.9 events per hour. OXIMETRY DATA: The average saturation for the night was 92%. The minimum reported saturation was 66%, but it was clearly artifactual. It is true minimum saturation what appeared to be approximately 87%. There was a total of 25.1 minutes with saturations less than 89%. RELAY ASSOCIATE COMMENTS: Mr. Ramsay slept in the supine position. Irregular EKG noted. Leg movements noted. No bruxism noted. CPAP was initiated at 4 cm and up titrated to an optimal level of 11 cm which nearly eliminated all respiratory events and snoring. A ResMed Mirage Quattro full face mask, size medium was utilized. The patient was up to urinate 4 times during the night. He stated that he did not sleep as well as he does in his own bed. IMPRESSION: 1. Obstructive sleep apnea - improved with nasal CPAP at a final pressure of 11 cm. 2. Atrial fibrillation. 3. Periodic limb movement disorder. COMMENTS: The patient had a significant decrease in sleepy efficiency. He slept relatively little over the final one-third of the night. At the final pressure of 11 cm, he had no respiratory events. However, there was a total of only 23.3 minutes of sleep at the final pressure. He had increased limb movements which is not unexpected with resolution of sleep disordered breathing. It remains to be seen how well the patient will tolerate nasal CPAP. RECOMMENDATIONS: 1. It is advised that the patient be started on nasal CPAP at 11 cm. 2. The patient should be seen in followup between day 31 and day 90 as per insurance requirements. 3. No treatment is necessary at present for the underlying limb movement disorder. 4. The patient has episodes of slow heart rates. Clinical correlation is advised.
== END | disposition home or self-care (01) ==
LOC: C.NEUR 20:00
PROVIDERS: ATTEND Physician Assistant
DX: G47.30 Sleep apnea, unspecified (principal); I48.91 Unspecified atrial fibrillation; G25.89 Other specified extrapyramidal and movement disorders

== ENCOUNTER 2019-08-22 13:15 | Inpatient (IN) ==
--- NOTE | 2019-08-22 13:42 | Emergency Department Note ---
Entered by Rosalee Jimenez acting as a scribe for Chavez Lozada DO History of Present Illness General Chief complaint: Chest Pain Stated complaint: CHEST PAIN Time Seen by Provider: 08/22/19 13:22 Source: patient History of Present Illness Provider complaint: Pedal Edema Onset (ago): week(s) 1 Location: lower extremity Relieved By: + none Exacerbated By: + none Associated symptoms: + denies other symptoms (Abdominal pain) and + shortness of breath; no chest pain The patient is a 83 year old male who presents to the Emergency Room with complaints of pedal edema that began 1 week ago. The patient states the symptoms are not relieved nor exacerbated by anything specific. The patient reports experiencing slight shortness of breath but denies any abdominal pain or chest pain. The patient notes that Dr. Arevaol-Pulmonology told him to go to the ED because of his test results. Home Medications Home Medications Medication Instructions Recorded Confirmed Type calcium carbonate-vitamin D3 1 tab PO QDL 06/01/18 08/22/19 History [Calcium 500 + D] carbidopa-levodopa 1 tab PO TID 06/01/18 08/22/19 History clopidogrel 75 mg PO QAM 06/01/18 08/22/19 History ezetimibe-simvastatin 1 tab PO HS 06/01/18 08/22/19 History furosemide 40 mg PO QAM 06/01/18 08/22/19 History nitroglycerin [Nitrostat] 1 tab BUCCAL UD PRN 06/01/18 08/22/19 History finasteride 5 mg tablet 5 mg PO QAM tab 04/13/19 08/22/19 History dabigatran etexilate 75 mg capsule 75 mg PO BID #90 cap 04/29/19 08/22/19 Rx clonidine HCl 0.2 mg tablet 0.4 mg PO TID #540 tab 05/12/19 08/22/19 Rx CPAP Machine #10 ea 07/13/19 08/22/19 Rx albuterol sulfate 90 mcg/actuation 2 puffs INH Q6H PRN #18 gm 08/16/19 08/22/19 Rx aerosol inhaler allopurinol 200 mg PO QAM 08/22/19 08/22/19 History amlodipine 10 mg PO QAM 08/22/19 08/22/19 History calcitriol 0.5 mcg PO QAM 08/22/19 08/22/19 History levothyroxine 100 mcg PO QAM 08/22/19 08/22/19 History tiotropium bromide [Spiriva 2 puffs INH QAM 08/22/19 08/22/19 History Respimat] Allergies Allergy/AdvReac Type Severity Reaction Status Date / Time hydralazine Allergy Unknown anorexia,h/ Verified 08/22/19 14:20 a,nausea,pa lpitations Past Med/Surg History Medical History Atrial fibrillation HTN (hypertension) (Chronic) Hypothyroid (Chronic) Surgical History H/O vasectomy History of appendectomy Hx of tonsillectomy Family History Father Diabetes Social History Preferred Language: Taiwanese Communication Ability: Effective Visual Impairment: No Limitations Hearing Ability: Normal 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 Beliefs That Will Affect Care: None marital status: Current Living Situation: Spouse Current Living Situation Comment: FAMILY LIVES CLOSE TO ASSIST NEEDED current occupational status: retired Feels Safe at Home: Yes Smoking Status: Never smoker Age Started Using Tobacco: 12 ; Age Quit Using Tobacco: 53 ; packs per day: 1 ; Cigarettes Per Day: 20 ; Second Hand Exposure: No ; Hx Alcohol Use: Yes Alcohol type: beer Alcohol Intake Frequency: Rarely Hx Substance Use: No Childhood Exposure to Second-Hand Smoke: Yes during the past year weight has: remained stable Seatbelt Use: always Review of Systems See HPI for pertinent positives & negatives. and A total of 10 systems reviewed and were otherwise negative Physical Exam Vital Signs Vital Signs - 24 hr 08/22/19 13:18 08/22/19 13:30 08/22/19 13:31 Temperature 36.4 C L Temperature Source Oral Pulse Rate 71 62 Pulse Rate from SpO2 Sensor 60 Respiratory Rate 18 19 Blood Pressure 198/73 H Blood Pressure Mean 114 Pulse Oximetry 94 94 95 Oxygen Delivery Method Room Air Room Air Sepsis Recent Fever Within 48 Hours No Sepsis New/Unexplained Change in Mental Status No Sepsis Action Taken by Nursing No Action Required 08/22/19 13:52 08/22/19 13:55 08/22/19 14:00 Temperature Temperature Source Pulse Rate 67 66 57 L Pulse Rate from SpO2 Sensor 63 58 L Respiratory Rate 22 23 13 Blood Pressure 142/61 H 126/53 L Blood Pressure Mean 103 98 Pulse Oximetry 95 89 L 91 Oxygen Delivery Method Room Air Sepsis Recent Fever Within 48 Hours Sepsis New/Unexplained Change in Mental Status Sepsis Action Taken by Nursing 08/22/19 14:30 08/22/19 15:00 08/22/19 16:09 Temperature Temperature Source Pulse Rate 47 L 46 L 65 Pulse Rate from SpO2 Sensor 48 L 45 L Respiratory Rate 15 17 17 Blood Pressure 134/55 L 134/62 Blood Pressure Mean 93 110 Pulse Oximetry 86 L 92 Oxygen Delivery Method Sepsis Recent Fever Within 48 Hours Sepsis New/Unexplained Change in Mental Status Sepsis Action Taken by Nursing 08/22/19 16:30 08/22/19 17:00 08/22/19 18:09 Temperature Temperature Source Pulse Rate 63 63 Pulse Rate from SpO2 Sensor 71 Respiratory Rate 18 15 Blood Pressure Blood Pressure Mean Pulse Oximetry 93 Oxygen Delivery Method Sepsis Recent Fever Within 48 Hours Sepsis New/Unexplained Change in Mental Status Sepsis Action Taken by Nursing GENERAL: Patient is awake alert in no acute distress patient is resting comfortably and showing no signs of anxiety EYES: The conjunctivae are clear. The pupils are round and reactive. EARS, NOSE, MOUTH AND THROAT: The nose is without any evidence of any deformity. Mucous membranes are moist tongue is midline NECK: The neck is nontender and supple. RESPIRATORY: Normal respiratory effort was noted. Lung sounds were diminished at both bases. CARDIOVASCULAR: Regular rate and rhythm was noted to auscultation. There was a slight systolic murmur noted to auscultation. GASTROINTESTINAL: The abdomen is soft. Abdomen is nontender MUSCULOSKELETAL/EXTREMITIES: There is no evidence of gross deformity full range of motion is noted in the hips and shoulders SKIN: Pedal edema was noted bilaterally. There were no skin changes. Pulses were symmetric in both feet. NEUROLOGIC: Patient is awake alert and oriented x3. Course Course 1325: Past medical records reviewed. The patient was evaluated in room A12B. A complete history and physical exam was performed. 1734: I spoke with Yamilet Amaro about the patient's case and Dr. Stephanie Norman- Hospitalist will accept the patient for further evaluation. Administered Medications Ioversol (Optiray 320 125ml) 93 ml IV ONCE PRN PRN Reason: Interaction Checking Stop: 08/26/19 17:15 Last Admin: 08/22/19 17:16 Dose: 93 ml Documented by: [id number] Medical Decision Making Differential Diagnosis Differential diagnosis: Etiologies such as infections, reactive airway disease, COPD, pneumonia, pleural effusion, pulmonary edema, ARDS, pneumothorax, CHF, cardiac ischemia, cardiac tamponade, dysrhythmia, anemia, pulmonary embolism, musculoskeletal, gastrointestinal process, as well as others were entertained. Medical Records Attestation: I reviewed the patient's medical records. Home Medications Current Medication List: was personally reviewed by me Laboratory Data Attestation: I reviewed the patient's lab results. Result diagrams: 08/22/19 13:35 08/22/19 13:35 Lab Results 08/22/19 08/22/19 08/22/19 Range/Units 13:35 13:35 13:35 WBC 8.17 (4.8-10.8) K/uL RBC 4.10 L (4.7-6.1) M/uL Hgb 12.8 L (14.0-18.0) g/dL Hct 38.5 L (42-52) % MCV 93.9 (80-100) fL MCH 31.2 (25-34) pg MCHC 33.2 (32-36) g/dL RDW Std Deviation 51.8 H (36.4-46.3) fL RDW Coeff of [place] 15.1 H (11.5-14.5) % Plt Count 245 (130-400) K/uL MPV 10.6 H (7.4-10.4) fL Immature Gran % (Auto) 0.4 % Neut % (Auto) 72.1 % Lymph % (Auto) 13.6 % [place] % (Auto) 12.4 % Eos % (Auto) 1.3 % Baso % (Auto) 0.2 % Immature Gran # (Auto) 0.03 H (0.00-0.02) K/uL Neut # (Auto) 5.89 (1.4-6.5) K/uL Lymph # (Auto) 1.11 L (1.2-3.4) K/uL [place] # (Auto) 1.01 H (0.11-0.59) K/uL Eos # (Auto) 0.11 (0-0.5) K/uL Baso # (Auto) 0.02 (0-0.2) K/uL PT 12.3 H (9.0-12.0) Seconds INR 1.2 H (0.9-1.1) APTT 39.0 H (21.0-31.0) Seconds PTT Ratio 1.4 Sodium 141 (136-145) mmol/L Potassium 3.4 L (3.5-5.1) mmol/L Chloride 105 (98-107) mmol/L Carbon Dioxide 27 (21-32) mmol/L Anion Gap 9.0 (3-11) BUN 36 H (7-18) mg/dl Creatinine 1.85 H (0.6-1.4) mg/dl Est Cr Clr Drug Dosing 28.2 ml/min Est GFR ( Amer) 37.6 Est GFR (Non-Af Amer) 32.5 BUN/Creatinine Ratio 19.5 (10-20) Glucose 131 H (70-99) mg/dl Calcium 9.7 (8.5-10.1) mg/dl Total Bilirubin 0.8 (0.2-1) mg/dl AST 21 (15-37) U/L ALT 9 L (12-78) U/L Alkaline Phosphatase 67 (45-117) U/L Troponin I < 0.015 (0-0.045) ng/ml Total Protein 7.2 (6.4-8.2) gm/dl Albumin 3.7 (3.4-5.0) gm/dl Globulin 3.5 (2.5-4.0) gm/dl Albumin/Globulin Ratio 1.0 (0.9-2) Lipase 133 (73-393) U/L Imaging Data Radiologist's Impression: Radiology results as stated below per my review and the radiologist's interpretation: SINGLE VIEW CHEST CLINICAL HISTORY: Atypical chest pain. FINDINGS: An AP, portable, upright chest radiograph is compared to study dated 08/16/2019 and correlated with chest CT dated 11/01/2017. The examination is degraded by portable technique and patient rotation. The heart is enlarged noting atherosclerotic calcification of the thoracic aorta. Emphysema and chronic interstitial thickening are similar to previous. There are trace pleural effusions with bibasilar consolidation. Right basilar consolidation has increased from previous. No pneumothorax is seen. The skeletal structures are osteopenic. The bony thorax is grossly intact. IMPRESSION: 1. Cardiomegaly and emphysema. 2. There is increasing right basilar consolidation as compared to previous. Correlate clinically for evidence of pneumonia/aspiration pneumonitis. Radiographic follow-up to resolution is recommended. 3. Small pleural effusions Electronically signed by: Cedrick Clements M.D. 08/22/2019 1:55 PM US venous doppler LE BI HISTORY: Pain. Edema. sent by Dr Hancock for LE dopplers COMPARISON STUDY: February 05, 2007 FINDINGS: Chronic thrombus within the right popliteal vein. This is similar compared to the prior study and resembles components of chronic venous scarring. There is also nonocclusive scarlike change involving the right peroneal vein. These findings again are most likely chronic. Left leg shows no evidence for acute deep venous thrombosis. IMPRESSION: 1. 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 2. Study is otherwise normal. 3. No evidence for acute deep venous thrombosis. The above report was generated using voice recognition software. It may contain grammatical, syntax or spelling errors. Electronically signed by: Jignesh Solano M.D. 08/22/2019 4:[address] angio chest PE protocol CT DOSE: 355.77 mGy.cm HISTORY: Dyspnea PE TECHNIQUE: Multiaxial CT images of the chest were performed following the intravenous administration of contrast to evaluate the pulmonary arteries. Maximal intensity projection images were also obtained. A dose lowering technique was utilized adhering to the principles of ALARA. COMPARISON STUDY: 11/01/2017 FINDINGS: Moderate atherosclerotic change thoracic aorta. No evidence for ane urysm or dissection. Mild mediastinal and hilar adenopathy considered stable to mildly improved from the prior study. Interval development of right pleural effusion. Prominent bronchovascular markings. Pulmonary vasculature enhances appropriately. No significant filling defects. IMPRESSION: 1. No evidence for pulmonary embolus. 2. Interval development of a right pleural effusion combined with right lower lobe atelectasis. 3. Interval resolution of the left upper lobe infiltrate on the prior study. 4. Trace pleural effusion and atelectasis left base. The above report was generated using voice recognition software. It may contain grammatical, syntax or spelling errors. Electronically signed by: Jignesh Solano M.D. 08/22/2019 5:23 PM ECG Data Attestation: I personally reviewed and interpreted this ECG as follows: Indication: + SOB/dyspnea Rate (beats per minute): 69 Rhythm: + atrial fibrillation ECG ST segments: + ST depression (Lateral) and + T-wave inversions ECG Findings: + Poor R wave progression; no PVCs Comparison ECG Date: from (11/03/17) Change: no significant change Blood Pressure Blood Pressure Findings: Elevated blood pressure Blood Pressure Disposition: further management by hospitalist MDM Narrative The patient is an 83-year-old male who presented to the emergency department for an evaluation of leg swelling. The patient has been noticing increased leg swelling. He is also been noticing difficulty breathing. 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 He was found to have a positive d-dimer and was sent to the emergency department for further evaluation. The patient was found to have episodes of hypoxia on room air. He was placed on supplemental oxygen with good improvement of his symptoms. He was found to have a large pleural effusion. He was found to have no signs of venous thrombi embolic disease in the lungs. 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 I discussed the patient's laboratory and radiographic studies with him. I also discussed his case with the on-call [facility] hospitalist group. They have agreed to evaluate the patient in the emergency department for further management and disposition. Impression & Plan Pleural effusion, Hypoxia, Peripheral edema Discharge Plan Visit Data Chief Complaint: Chest Pain Stated Complaint: CHEST PAIN ED Provider: Chavez Lozada Discharge Problem: Pleural effusion, Hypoxia, Peripheral edema Forms Stand Alone Forms: My [facility] Prescriptions Prescriptions: No Action dabigatran etexilate 75 mg capsule 75 mg PO BID Qty: 90 RF: 3 clonidine HCl 0.2 mg tablet 0.4 mg PO TID Qty: 540 RF: 3 albuterol sulfate [Ventolin HFA] 90 mcg/actuation HFA aerosol inhaler 2 puffs INH Q6H PRN (Reason: shortness of breath or wheezing) Qty: 18 RF: 3 finasteride 5 mg tablet 5 mg PO QAM RF: 0 (DME) CPAP Machine Misc See Dose Instructions .ROUTE .MEDSUPPLY Qty: 10 RF: 0 clopidogrel 75 mg tablet 75 mg PO QAM RF: 0 carbidopa-levodopa 25-100 mg tablet 1 tab PO TID RF: 0 ezetimibe-simvastatin 10-20 mg tablet 1 tab PO HS RF: 0 furosemide 40 mg Tablet 40 mg PO QAM RF: 0 nitroglycerin [Nitrostat] 0.4 mg Tablet, Sublingual 1 tab buccal UD PRN (Reason: Chest Pain) RF: 0 calcium carbonate-vitamin D3 [Calcium 500 + D] 500 mg(1,250mg) -200 unit Tablet 1 tab PO QDL RF: 0 levothyroxine 100 mcg tablet 100 mcg PO QAM RF: 0 allopurinol 100 mg tablet 200 mg PO QAM RF: 0 amlodipine 10 mg tablet 10 mg PO QAM RF: 0 calcitriol 0.5 mcg capsule 0.5 mcg PO QAM RF: 0 Spiriva Respimat 2.5 mcg/actuation mist 2 puffs INH QAM RF: 0 The scribe's documentation has been prepared under my direction and personally reviewed by me in its entirety. I confirm that the note above accurately reflects all work, treatment, procedures, and medical decision making performed by me.
--- NOTE | 2019-08-22 13:57 | XRay Report ---
SINGLE VIEW CHEST CLINICAL HISTORY: Atypical chest pain. FINDINGS: An AP, portable, upright chest radiograph is compared to study dated 08/16/2019 and correla anshul with chest CT dated 11/01/2017. The examination is degraded by portable technique and patient rota tion. The heart is enlarged noting atherosclerotic calcification of the thoracic aorta. Emphysema and chronic interstitial thickening are similar to previous. There are trace pleural effusions with biba silar consolidation. Right basilar consolidation has increased from previous. No pneumothorax is seen . The skeletal structures are osteopenic. The bony thorax is grossly intact. IMPRESSION: 1. Cardiomegaly and emphysema. 2. There is increasing right basilar consolidation as compared to previous. Correlate clinically for evidence of pneumonia/aspiration pneumonitis. Radiographic follow-up to resolution is recommended. 3. Small pleural effusions Electronically signed by: Cedrick Clements M.D. 08/22/2019 1:55 PM
[2019-08-22 13:58] LABS: Basophils # (auto) 0.02 K/uL (0-0.2); Basophils % (auto) 0.2 %; Eosinophils # (auto) 0.11 K/uL (0-0.5); Eosinophils % (auto) 1.3 %; Hematocrit (blood only) 38.5 % (42-52); Hemoglobin 12.8 g/dL (14.0-18.0); Immature Granulocytes # (auto) 0.03 K/uL (0.00-0.02); Immature Granulocytes % (auto) 0.4 %; Lymphocytes # (auto) 1.11 K/uL (1.2-3.4); Lymphocytes % (auto) 13.6 %; Mean Corpuscular Hemoglobin 31.2 pg (25-34); Mean Corpuscular Hgb Conc 33.2 g/dL (32-36); Mean Corpuscular Volume 93.9 fL (80-100); Mean Platelet Volume 10.6 fL (7.4-10.4); Monocytes # (auto) 1.01 K/uL (0.11-0.59); Monocytes % (auto) 12.4 %; Neutrophils # (auto) 5.89 K/uL (1.4-6.5); Neutrophils % (auto) 72.1 %; Platelet Count 245 K/uL (130-400); RDW Coefficient of Variation 15.1 % (11.5-14.5); RDW Standard Deviation 51.8 fL (36.4-46.3); White Blood Count 8.17 K/uL (4.8-10.8)
[2019-08-22 14:07] LABS: INR 1.2 (0.9-1.1); Partial Thromboplastin Ratio 1.4; Prothrombin Time 12.3 Seconds (9.0-12.0)
[2019-08-22 14:15] LABS: Alanine Aminotransferase 9 U/L (12-78); Albumin Level 3.7 gm/dl (3.4-5.0); Aspartate Aminotransferase 21 U/L (15-37); BUN Creatinine Ratio 19.5 (10-20); Blood Urea Nitrogen 36 mg/dl (7-18); Calcium 9.7 mg/dl (8.5-10.1); Carbon Dioxide 27 mmol/L (21-32); Chloride 105 mmol/L (98-107); Creatinine Clr Calc Pharmacy 28.2 ml/min; Est GFR (African American) 37.6; Est GFR (Non-African American) 32.5; Glucose 131 mg/dl (70-99); Lipase 133 U/L (73-393); Potassium 3.4 mmol/L (3.5-5.1); Sodium 141 mmol/L (136-145)
[2019-08-22 14:20] LABS: Alkaline Phosphatase 67 U/L (45-117); Bilirubin,Total 0.8 mg/dl (0.2-1); Globulin 3.5 gm/dl (2.5-4.0); Total Protein 7.2 gm/dl (6.4-8.2); Troponin I < 0.015 ng/ml (0-0.045)
--- NOTE | 2019-08-22 16:06 | Ultrasound Report ---
US venous doppler LE BI HISTORY: Pain. Edema. sent by Dr Hancock for LE dopplers COMPARISON STUDY: February 05, 2007 FINDINGS: Chronic thrombus within the right popliteal vein. This is similar compared to the prior ean dy and resembles components of chronic venous scarring. There is also nonocclusive scarlike change involving the right peroneal vein. These findings again ar e most likely chronic. Left leg shows no evidence for acute deep venous thrombosis. IMPRESSION: 1. 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 2. Study is otherwise normal. 3. No evidence for acute deep venous thrombosis. The above report was generated using voice recognition software. It may contain grammatical, syntax or spelling errors. Electronically signed by: Jignesh Solano M.D. 08/22/2019 4:05 PM
[2019-08-22] MEDS ORDERED: OPTIRAY 320 125ml IV PRN (17:16)
--- NOTE | 2019-08-22 17:25 | CT Scan Report ---
CT angio chest PE protocol CT DOSE: 355.77 mGy.cm HISTORY: Dyspnea PE TECHNIQUE: Multiaxial CT images of the chest were performed following the intravenous administration of contrast to evaluate the pulmonary arteries. Maximal intensity projection images were also obtaine d. A dose lowering technique was utilized adhering to the principles of ALARA. COMPARISON STUDY: 11/01/2017 FINDINGS: Moderate atherosclerotic change thoracic aorta. No evidence for aneurysm or dissection. Mil d mediastinal and hilar adenopathy considered stable to mildly improved from the prior study. Interval development of right pleural effusion. Prominent bronchovascular markings. Pulmonary vasculature enhances appropriately. No significant filling defects. IMPRESSION: 1. No evidence for pulmonary embolus. 2. Interval development of a right pleural effusion combined with right lower lobe atelectasis. 3. Interval resolution of the left upper lobe infiltrate on the prior study. 4. Trace pleural effusion and atelectasis left base. The above report was generated using voice recognition software. It may contain grammatical, syntax or spelling errors. Electronically signed by: Jignesh Solano M.D. 08/22/2019 5:23 PM
--- NOTE | 2019-08-22 18:38 | History & Physical Report ---
Date of Service August 22, 2019 Assessment & Plan (1) Pleural effusion: 83-year-old male was admitted on 22 August 2019 for SOB and pleural effusion. SOB, Pleural effusion, hypoxia, dyspnea on exertion: Reported pain-free shortness of breath over the past month, worse in the past week or so. Seems mostly exertional. No reported fever or productive cough. Followed by pulmonology as outpatient (see related notes) today and referred to ED by them. Noted to have a new pleural effusion on CTA. Does not seem to be in overt cardiac failure. No obvious signs of infection to include lab work-up here. Does have a 40 pk/yr history of smoking. - In ED, afebrile, bradycardic, normotensive, with lowest room SpO2 86%. WBC 8. D-dimer 590. BNP 2755. CTA chest notable for no PE seen, right pleural effusion with right lower lobe atelectasis, and interval resolution of left upper lobe infiltrate. 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 EKG was afib rate 69 and TnI was negative. - No acute treatments in the ED beyond supplemental oxygen. - Will maintain on supplemental oxygen to keep SpO2 > 90%. Consult pulmonology for consideration of pleurocentesis. Continue the Lasix at 80 mg PO daily. Recheck TTE in AM. Daily weights. Obstructive pulmonary disease: Followed by pulmonology as outpatient. Reportedly is supposed to be on Spiriva and Ventolin prn. Will keep on both on admit. Peripheral edema, bilateral extremity venous insufficiency: Recent increase in home Lasix from 40 to 80 mg daily. We will keep on higher dose for now and serially monitor. Hypokalemia: Admit K 3.4. Recheck in AM. Ongoing medical issues: - HTN, HLD, CAD, PAD: Continue home amlodipine, clonidine, Plavix, Vytorin, Lasix as above. - Chronic diastolic CHF: Oct 2017 TTE noted EF 60-65%, severe pulmonary hypertension, mild MR and TR (see full report). - Anemia: Admit Hb 12.8 (baseline around 12s). No overt evidence of acute bleeding. Monitoring. - CKD stage III, renal artery stenosis: Admit Cr 1.85 (baseline around 1.8). 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 Continue home calcitriol. - Mild idiopathic right javi-Parkinson's disease: On Sinemet. - Chronic atrial fibrillation: On home Pradaxa. - GERD: Unclear if ranitidine was recently stopped. - Hypothyroidism: Continue home levothyroxine. - Provoked DVT: Previous [place] filter placement. - Obstructive sleep apnea: Uses CPAP at night. - Gout: Continue home allopurinol. Code status: Full code. Diet: Regular, low sodium. DVT prophy: On home Pradaxa. PT/OT: Ordered. Had recently undergone PT as outpatient for left hip pain. Disbo: Admit to med surg telemetry. At baseline, lives at home with his . (2) Hypoxia: (3) Dyspnea on exertion: (4) Mild obstruction of pulmonary airflow: (5) Peripheral edema: (6) Hypokalemia: (7) Hypertension: (8) Dyslipidemia: (9) CAD in [place] artery: (10) PAD (peripheral artery disease): (11) Chronic diastolic congestive heart failure: (12) Anemia: (13) Chronic kidney disease, stage 3 (moderate): (14) Parkinson's disease: (15) Atrial fibrillation: (16) GERD (gastroesophageal reflux disease): (17) Hypothyroidism: (18) History of DVT (deep vein thrombosis): (19) Apnea, sleep: (20) Gout: History of Present Illness Primary Care Provider: Chavez Young MD 83-year-old male was referred by his rotary swaging machine operator for further evaluation of shortness of breath. Patient states that normally he exercises daily at the [facility]. Over the past month he has noticed some shortness of breath with walking up inclines. This has worsened such that he has stopped his routine walks at the [facility] over the past 1 to 2 weeks. He denies any chest pain / discomfort ass ociated with this. During past 1-2 weeks has also noticed increased bilateral leg edema for which he increased his normal Lasix 40 mg daily up to 80 mg daily. However, he says he has not noticed much leg edema improvement and only today did he have increased urine output. He decided to see his rotary swaging machine operator for evaluation of the above and was ultimately referred to the ED for lab work. He denies any known fevers or feeling of illness, says he has a rare dry cough, does not use oxygen at home, but does use a CPAP at night. He says he does not use his Spiriva because either forgets or he overall feels okay. He has been using his Ventolin about once per day. Otherwise he denies acute concerns. - Past medical history includes hypertension, hyperlipidemia, coronary disease, peripheral artery disease, diastolic CHF, anemia, CKD stage III, renal artery stenosis, mild idiopathic right javi-Parkinson's disease, chronic atrial fibrillation, GERD, hypothyroidism, provoked DVT, subdural hematoma, obstructive sleep apnea, gout, vitamin D deficiency, hearing loss. - Past surgical history includes vasectomy, appendectomy, tonsillectomy, left renal stents and angioplasty, left CEA, subdural hematoma status post evacuation, [place] filter placement - Social history includes quitting smoking in 1992 (prior 1 pack/day x 40 years), rare alcohol use, prior [place] [employer] service in [place] in the 1950s. Possible asbestos exposure. Presently lives at home with his . Allergies Allergy/AdvReac Type Severity Reaction Status Date / Time hydralazine Allergy Unknown anorexia,h/ Verified 08/22/19 14:20 a,nausea,pa lpitations Home Medications Home Medications Medication Instructions Recorded Confirmed Type calcium carbonate-vitamin D3 1 tab PO QDL 06/01/18 08/22/19 History [Calcium 500 + D] carbidopa-levodopa 1 tab PO TID 06/01/18 08/22/19 History clopidogrel 75 mg PO QAM 06/01/18 08/22/19 History ezetimibe-simvastatin 1 tab PO HS 06/01/18 08/22/19 History furosemide 40 mg PO QAM 06/01/18 08/22/19 History nitroglycerin [Nitrostat] 1 tab BUCCAL UD PRN 06/01/18 08/22/19 History finasteride 5 mg tablet 5 mg PO QAM tab 04/13/19 08/22/19 History dabigatran etexilate 75 mg capsule 75 mg PO BID #90 cap 04/29/19 08/22/19 Rx clonidine HCl 0.2 mg tablet 0.4 mg PO TID #540 tab 05/12/19 08/22/19 Rx CPAP Machine #10 ea 07/13/19 08/22/19 Rx albuterol sulfate 90 mcg/actuation 2 puffs INH Q6H PRN #18 gm 08/16/19 08/22/19 Rx aerosol inhaler allopurinol 200 mg PO QAM 08/22/19 08/22/19 History amlodipine 10 mg PO QAM 08/22/19 08/22/19 History calcitriol 0.5 mcg PO QAM 08/22/19 08/22/19 History levothyroxine 100 mcg PO QAM 08/22/19 08/22/19 History tiotropium bromide [Spiriva 2 puffs INH QAM 08/22/19 08/22/19 History Respimat] Past Med/Surg History Medical History Atrial fibrillation HTN (hypertension) (Chronic) Hypothyroid (Chronic) Surgical History H/O vasectomy History of appendectomy Hx of tonsillectomy Family History Father Diabetes Social History Preferred Language: Cymro Communication Ability: Effective Visual Impairment: No Limitations Hearing Ability: Normal Finance Consultant Required: No Beliefs That Will Affect Care: None marital status: Current Living Situation: Spouse Current Living Situation Comment: from home current occupational status: retired Other Information That Helps Us Care for You: No Feels Safe at Home: Yes Safety Concerns: Feels Safe At This Time Smoking Status: Former smoker Age Started Using Tobacco: 12 ; Age Quit Using Tobacco: 53 ; packs per day: 1 ; Cigarettes Per Day: 20 ; Do You Dip or Chew Tobacco: No ; Second Hand Exposure: No ; Tobacco Cessation Education Requested by Patient: No Hx Alcohol Use: Yes Alcohol type: beer Alcohol Intake Frequency: Rarely Hx Substance Use: No Childhood Exposure to Second-Hand Smoke: Yes during the past year weight has: remained stable Seatbelt Use: always Review of Systems Review of Systems: Constitutional: Denies fevers, chills, focal weakness Eyes: Denies any visual loss or diplopia ENT: Denies any ear/nose/throat pain or difficulty speaking or swallowing Respiratory: Positive dyspnea cough. Denies hemoptysis. Cardiovascular: Denies any chest pain. Positive peripheral edema. Gastrointestinal: Denies any abdominal pain, nausea/vomiting/diarrhea Musculoskeletal: Denies any acute extremity pains, myalgias, or focal weakness Skin: Denies any known acute rashes or lesions Neuro: Denies any headache, acute focal weakness or numbness, or difficulties with speech or swallow. Physical Exam Physical Exam: GENERAL: Awake, alert, well-appearing, in no acute distress HENT: Normocephalic, atraumatic. Oropharynx dry. Some crusting around his lips. EYES: Normal conjunctiva. Sclera non-icteric. NECK: Inspection normal. Supple and full ROM. No nuchal rigidity. CARDIAC: +S1S2 irregularly irregular but not bradycardic, no murmurs. RESPIRATORY: Mild tachypnea. Decreased breath sounds in the right base. GI: +BS, soft, mildly distended (? habitus). No tenderness to palpation. No rebound or guarding. EXTREMITIES: No calf tenderness. Mild right upper extremity tremor. Trace bilateral finney edema. NEURO: No gross neuro deficits. Results & Data Vital Signs (Past 12 Hours) Vital Signs Temp Pulse Resp BP Pulse Ox 08/22/19 18:09 93 08/22/19 17:00 63 15 08/22/19 16:30 63 18 08/22/19 16:09 65 17 08/22/19 15:00 46 L 17 134/62 92 08/22/19 14:30 47 L 15 134/55 L 86 L 08/22/19 14:00 57 L 13 126/53 L 91 08/22/19 13:55 66 23 142/61 H 89 L 08/22/19 13:52 67 22 95 08/22/19 13:31 62 19 95 08/22/19 13:30 94 08/22/19 13:18 36.4 C L 71 18 198/73 H 94 Laboratory Results 08/22/19 08/22/19 08/22/19 Range/Units 13:35 13:35 13:35 WBC 8.17 (4.8-10.8) K/uL RBC 4.10 L (4.7-6.1) M/uL Hgb 12.8 L (14.0-18.0) g/dL Hct 38.5 L (42-52) % MCV 93.9 (80-100) fL MCH 31.2 (25-34) pg MCHC 33.2 (32-36) g/dL RDW Std Deviation 51.8 H (36.4-46.3) fL RDW Coeff of [place] 15.1 H (11.5-14.5) % Plt Count 245 (130-400) K/uL MPV 10.6 H (7.4-10.4) fL Immature Gran % (Auto) 0.4 % Neut % (Auto) 72.1 % Lymph % (Auto) 13.6 % Webb % (Auto) 12.4 % Eos % (Auto) 1.3 % Baso % (Auto) 0.2 % Immature Gran # (Auto) 0.03 H (0.00-0.02) K/uL Neut # (Auto) 5.89 (1.4-6.5) K/uL Lymph # (Auto) 1.11 L (1.2-3.4) K/uL Webb # (Auto) 1.01 H (0.11-0.59) K/uL Eos # (Auto) 0.11 (0-0.5) K/uL Baso # (Auto) 0.02 (0-0.2) K/uL PT 12.3 H (9.0-12.0) Seconds INR 1.2 H (0.9-1.1) APTT 39.0 H (21.0-31.0) Seconds PTT Ratio 1.4 Sodium 141 (136-145) mmol/L Potassium 3.4 L (3.5-5.1) mmol/L Chloride 105 (98-107) mmol/L Carbon Dioxide 27 (21-32) mmol/L Anion Gap 9.0 (3-11) BUN 36 H (7-18) mg/dl Creatinine 1.85 H (0.6-1.4) mg/dl Est Cr Clr Drug Dosing 28.2 ml/min Est GFR ( Amer) 37.6 Est GFR (Non-Af Amer) 32.5 BUN/Creatinine Ratio 19.5 (10-20) Glucose 131 H (70-99) mg/dl Calcium 9.7 (8.5-10.1) mg/dl Total Bilirubin 0.8 (0.2-1) mg/dl AST 21 (15-37) U/L ALT 9 L (12-78) U/L Alkaline Phosphatase 67 (45-117) U/L Troponin I < 0.015 (0-0.045) ng/ml Total Protein 7.2 (6.4-8.2) gm/dl Albumin 3.7 (3.4-5.0) gm/dl Globulin 3.5 (2.5-4.0) gm/dl Albumin/Globulin Ratio 1.0 (0.9-2) Lipase 133 (73-393) U/L Medications Administered Ioversol (Optiray 320 125ml) 93 ml IV ONCE PRN PRN Reason: Interaction Checking Stop: 08/26/19 17:15 Last Admin: 08/22/19 17:16 Dose: 93 ml Documented by: [id number] Code Status & VTE Plan Code Status Full code VTE Prophylaxis Plan VTE Prophylaxis will be ordered: Yes Supervising Physician Co-Signing Physician Notes Patient seen and examined, chart reviewed, case discussed with Dr. garcia and I agree with his assessment and plan as documented above. Briefly, patient is an 83-year-old male referred by the pulmonology clinic for worsening shortness of breath. Patient found to have evidence of volume overload and new right sided pleural effusion On physical exam he is afebrile, hypertensive otherwise hemodynamically stable, saturating 90% on 2 L Generalno acute distress, resting comfortably in bed Skinwarm, dry, intact Heart+ S1/S2, irregularly irregular Lungssoft bibasilar crackles, no rhonchi/wheezes Abdomen+ bowel sounds, soft, NT/ND Extremitiestrace pitting edema bilateral lower extremities Neurogrossly intact Labs and images reviewed. Significant for stable normochromic/normocytic anemia, stable renal function. Chronic VTE of right popliteal vein. + Pleural effusion Assessment/[id number] male presented with increasing edema and shortness of breath. Found to have new right-sided pleural effusion. Concern for CHF as underlying etiology. Continue Lasix, monitor I's and O's and daily weights -Echocardiogram Pulmonary consultation for possible thoracentesis -Remainder of plan as above Resident Activity Tracking Resident Involvement: Resident Care Provided Care Provided: Adult Hospital Medicine (1) Apnea, sleep Sleep apnea type: obstructive Qualified Code(s): G47.33 - Obstructive sleep apnea (adult) (pediatric)
[2019-08-22] MEDS ORDERED: ONDANSETRON INJ 2 MG/ML 2 ML VIAL IV PRN (20:02)
[2019-08-22] MEDS ORDERED: ACETAMINOPHEN 325 MG TAB PO PRN (20:02)
[2019-08-22] MEDS ORDERED: ALBUTEROL HFA 8 GM INHALER INH PRN (20:02)
[2019-08-22] MEDS: DABIGATRAN ETEXILATE 75 MG CAP PO SCH (20:51)
[2019-08-22] MEDS: EZETIMIBE/SIMVASTATIN 10/20 TAB PO SCH (20:53)
[2019-08-22] MEDS: cloNIDine HCL 0.1 MG TAB PO SCH (20:54)
[2019-08-22] MEDS: CARBIDOPA/LEVODOPA 25/100MG TAB PO SCH (20:54)
[2019-08-22] MEDS ORDERED: cloNIDine HCL 0.2 MG TAB PO SCH (21:00)
--- NOTE | 2019-08-22 22:12 | Billing Data ---
Coding Level of Care Code 45437 Initial Inpt Care Lvl 3
[2019-08-23] MEDS: LEVOTHYROXINE SODIUM 100 MCG TABLET PO SCH (05:47)
[2019-08-23 06:45] LABS: Basophils # (auto) 0.03 K/uL (0-0.2); Basophils % (auto) 0.4 %; Eosinophils # (auto) 0.29 K/uL (0-0.5); Eosinophils % (auto) 3.5 %; Hematocrit (blood only) 41.1 % (42-52); Hemoglobin 13.3 g/dL (14.0-18.0); Immature Granulocytes # (auto) 0.02 K/uL (0.00-0.02); Immature Granulocytes % (auto) 0.2 %; Lymphocytes # (auto) 1.61 K/uL (1.2-3.4); Lymphocytes % (auto) 19.4 %; Mean Corpuscular Hemoglobin 31.1 pg (25-34); Mean Corpuscular Hgb Conc 32.4 g/dL (32-36); Mean Corpuscular Volume 96.3 fL (80-100); Mean Platelet Volume 10.9 fL (7.4-10.4); Monocytes # (auto) 1.16 K/uL (0.11-0.59); Monocytes % (auto) 13.9 %; Neutrophils # (auto) 5.21 K/uL (1.4-6.5); Neutrophils % (auto) 62.6 %; Platelet Count 271 K/uL (130-400); RDW Coefficient of Variation 15.2 % (11.5-14.5); RDW Standard Deviation 53.2 fL (36.4-46.3); Red Blood Count 4.27 M/uL (4.7-6.1); White Blood Count 8.32 K/uL (4.8-10.8)
[2019-08-23 07:21] LABS: BUN Creatinine Ratio 17.6 (10-20); Calcium 9.8 mg/dl (8.5-10.1); Creatinine Clr Calc Pharmacy 27.6 ml/min; Est GFR (African American) 36.7; Est GFR (Non-African American) 31.6; Magnesium 2.4 mg/dl (1.8-2.4); Potassium 3.8 mmol/L (3.5-5.1)
[2019-08-23] MEDS: FUROSEMIDE 80 MG TAB PO SCH (08:50)
[2019-08-23] MEDS: AMLODIPINE BESYLATE 5 MG TAB PO SCH (08:50)
[2019-08-23] MEDS: DABIGATRAN ETEXILATE 75 MG CAP PO SCH ×2 (08:52→20:07)
[2019-08-23] MEDS: CLOPIDOGREL BISULFATE 75 MG TAB PO SCH (08:52)
[2019-08-23] MEDS: FINASTERIDE 5 MG TAB PO SCH (08:53)
[2019-08-23] MEDS: CARBIDOPA/LEVODOPA 25/100MG TAB PO SCH ×3 (08:54→20:07)
[2019-08-23] MEDS: CALCITRIOL 0.25 MCG CAPSULE PO SCH (08:54)
[2019-08-23] MEDS: allopurinoL 100 MG TAB PO SCH (08:55)
[2019-08-23] MEDS: TIOTROPIUM BROMIDE 5 PUFF/90 MCG INH INH SCH (08:55)
--- NOTE | 2019-08-23 09:02 | Pulmonary Consultation ---
Date of Consultation August 23, 2019 Assessment & Plan (1) Pleural effusion: Impression: 83-year-old male with chronic right-sided pleural effusion on chronic anticoagulation. He is on room air currently and does not appear in any acute distress. Recommendations: 1. Pleural effusion: This is chronic dating back to 2018 and likely represents sequelae of his diastolic heart failure. This effusion is small enough that I doubt it is causing him any significant respiratory compromise and again is unchanged from 2018. I would not recommend sampling at this point in time. In addition the patient is anticoagulated and thoracentesis would require holding his Eliquis for at least 24hours. If the patient would like to proceed with this I would recommend holding his anticoagulation and we can reassess tomorrow however he appears very comfortable currently and given his advanced age and medical comorbidities I do not think additional invasive procedures in an asymptomatic patient would offer him much in the way of clinical benefit. 2. Diastolic heart failure: Management per primary service. 3. Hypoxemia: The patient demonstrates normal oxygen saturations on room air and appears to be in no distress. 4. Reported COPD: He is not bronchospastic currently. Would not add inhalers steroids or antibiotics at the current time. If the patient has persistent issues with shortness of breath, we would be happy to see him in the outpatient clinic. Thank you for the opportunity of participating in the care of this patient. We will sign off at this point time. (2) Hypoxia: (3) Chronic obstructive pulmonary disease: History of Present Illness Attending Physician: Jojo Landaverde MD History of Present Illness Asked by hospitalist to evaluate this patient with hypoxemia and pleural effusion. Patient seen and examined. Images and EMR independently reviewed. History is obtained from discussion with the patient at the bedside as well as with extensive review of the EMR. Patient is an 83-year-old male with a history of chronic diastolic heart failure and long-term anticoagulation who was admitted to the hospital with complaints of shortness of breath. Patient had a CT scan performed which revealed a small right-sided pleural effusion. The effusion is essentially unchanged from prior imaging performed in 2018. He did have lower extremity edema. He was started on diuretics. He is on long-term anticoagulants in the form of Pradaxa which has been continued. He denies any history of trauma. No fevers chills or night sweats. No chest pain or palpitations. He does state that his lower extremity edema has been progressive. Pulmonary was consulted for consideration of thoracentesis. Allergies Allergy/AdvReac Type Severity Reaction Status Date / Time hydralazine Allergy Unknown anorexia,h/ Verified 08/22/19 14:20 a,nausea,pa lpitations Home Medications Home Medications Medication Instructions Recorded Confirmed Type calcium carbonate-vitamin D3 1 tab PO QDL 06/01/18 08/22/19 History [Calcium 500 + D] carbidopa-levodopa 1 tab PO TID 06/01/18 08/22/19 History clopidogrel 75 mg PO QAM 06/01/18 08/22/19 History ezetimibe-simvastatin 1 tab PO HS 06/01/18 08/22/19 History furosemide 40 mg PO QAM 06/01/18 08/22/19 History nitroglycerin [Nitrostat] 1 tab BUCCAL UD PRN 06/01/18 08/22/19 History finasteride 5 mg tablet 5 mg PO QAM tab 04/13/19 08/22/19 History dabigatran etexilate 75 mg capsule 75 mg PO BID #90 cap 04/29/19 08/22/19 Rx clonidine HCl 0.2 mg tablet 0.4 mg PO TID #540 tab 05/12/19 08/22/19 Rx CPAP Machine #10 ea 07/13/19 08/22/19 Rx albuterol sulfate 90 mcg/actuation 2 puffs INH Q6H PRN #18 gm 08/16/19 08/22/19 Rx aerosol inhaler allopurinol 200 mg PO QAM 08/22/19 08/22/19 History amlodipine 10 mg PO QAM 08/22/19 08/22/19 History calcitriol 0.5 mcg PO QAM 08/22/19 08/22/19 History levothyroxine 100 mcg PO QAM 08/22/19 08/22/19 History tiotropium bromide [Spiriva 2 puffs INH QAM 08/22/19 08/22/19 History Respimat] Patient History Medical History Atrial fibrillation HTN (hypertension) (Chronic) Hypothyroid (Chronic) Surgical History H/O vasectomy History of appendectomy Hx of tonsillectomy Family History Father Diabetes Social History Preferred Language: Pakistani Communication Ability: Effective Visual Impairment: No Limitations Hearing Ability: Normal Communications Operator Required: No Beliefs That Will Affect Care: None marital status: Current Living Situation: Spouse Current Living Situation Comment: from home current occupational status: retired Other Information That Helps Us Care for You: No Feels Safe at Home: Yes Safety Concerns: Feels Safe At This Time Smoking Status: Former smoker Age Started Using Tobacco: 12 ; Age Quit Using Tobacco: 53 ; packs per day: 1 ; Cigarettes Per Day: 20 ; Do You Dip or Chew Tobacco: No ; Second Hand Exposure: No ; Tobacco Cessation Education Requested by Patient: No Hx Alcohol Use: Yes Alcohol type: beer Alcohol Intake Frequency: Rarely Hx Substance Use: No Childhood Exposure to Second-Hand Smoke: Yes during the past year weight has: remained stable Seatbelt Use: always Review of Systems Review of Systems: 12 point review of systems completed with the patient and is negative except as noted in the HPI. Please refer to the admission H&P for additional details Physical Exam Constitutional: WD/WN, vitals as above Neck: trachea midline, no thyromegaly Respiratory: Clear to auscultation in the apices. No wheezing or crackles. Slight decreased breath sound at the bilateral bases with some dullness to percussion Cardiovascular: Heart Sounds: normal S1 and normal S2; no murmur Gastrointestinal (Abdomen): normal bowel sounds, soft, nontender, no hepatosplenomegaly Musculoskeletal: Extremities: extremities normal to inspection Skin: no rashes, warm and dry Neurologic: Nonfocal exam Lymphatic: no cervical lymphadenopathy Results & Data Vital Signs (Past 12 Hours) Vital Signs Temp Pulse Pulse Resp BP Pulse Ox 08/23/19 07:53 36.7 C 78 18 126/78 97 08/23/19 04:59 36.7 C 56 L 20 138/62 93 08/23/19 01:50 50 L 08/22/19 23:37 36.6 C 66 20 183/65 H 93 Laboratory Results 08/23/19 06:13 08/23/19 06:[address] of the chest independently reviewed. There is a chronic appearing right pleural effusion which is small in nature and unchanged compared to prior CT scans from 2018. Some compressive atelectasis is noted. Severe cardiomegaly is noted with significant atherosclerotic disease. Mediastinal adenopathy is present which is unchanged from 2018 PG Care Time/CCT Total # of Minutes Spent Total Time Spent with Patient: Total time spent is greater than 50% in coordination of care (as documented) at patient's floor/unit and/or counseling patient:
[2019-08-23] MEDS: cloNIDine HCL 0.1 MG TAB PO SCH ×3 (11:32→20:07)
--- NOTE | 2019-08-23 12:07 | Cardiology Consultation ---
Date of Consultation August 23, 2019 Assessment & Plan (1) Dyspnea on exertion: Uncertain ideology. The pleural effusion which prompted his admission did not appear to be a significant factor in his breathing difficulty. He may have an element of pulmonary vascular congestion and he certainly has some mild peripheral edema. It would seem prudent to affect a diuresis as result. He may have an element of diastolic failure superimposed upon chronic pulmonary disease. It is unclear whether he has affected a good diuresis. While his N terminal proBNP may be unreliable given his age and atrial fibrillation, the value is increased from yesterday. His symptoms have not improved. Perhaps more aggressive diuresis over the course of 24 hours will affect some change. Other etiologies for his symptoms could include chronotropic incompetence. He Did ambulate around the [place] with some increase in his heart rate. I think would be reasonable given concerns about bradycardia and dyspnea as well as some mention of chest pressure to perform exercise echocardiography. Think this could be performed tomorrow after some attempted diuresis today. (2) Atrial fibrillation: Permanent. He is on anticoagulation with Pradaxa. Perhaps not ideal in his demographic. Whether he needs continued Plavix is also unclear. His last evaluation by the vascular surgeon involve a recommendation to continue his Plavix. However, it is unclear whether he derive significant benefit. He also has a history of significant bleeding. I think this when at the be readdressed with his vascular surgeon in the hopes of discontinuing Plavix and continuing systemic anticoagulation. He has had documented periods of bradycardia. However, these have all occurred during evening hours. There has been no correlation between any low heart rates in his symptoms. Again, with ambulation his heart rate did increase. I think more formal testing on the treadmill will give us better insight into whether he truly has any element of chronotropic incompetence. History of Present Illness Reason for Consultation: Atrial fibrillation, bradycardia Requesting Physician: Saima Attending Physician: Jojo Landaverde MD History of Present Illness The patient is an 83-year-old gentleman with a history of presumed coronary disease, peripheral vascular disease to include carotid and renal artery stenosis, history of deep venous thrombosis, permanent atrial fibrillation, severe pulmonary hypertension, COPD and a history of diastolic heart failure who has been experiencing progressive shortness of breath for approximately 1 month. Prior to 1 month ago the patient reports being quite active in exercising regularly. This included both walking over a mile on a treadmill and performing some exercise on a recumbent bike. Patient did not report symptoms of limiting dyspnea with that type of activity. He did not report symptoms of chest pain. However, over the past several weeks he has had more difficulty with the same activity. His primary concern is breathing difficulty and lower extremity edema. He states that he has noted some increasing edema in his calves and ankles. As result, he increased his dose of diuretic to Lasix 40 milligrams twice daily. He did not notice any improvement in his lower extremity edema and his breathing did not improve either. Curiously, he did not endorse symptoms of orthopnea or paroxysmal nocturnal dyspnea. At rest he seems quite comfortable. He was able to ambulate around the [place] this morning. He states that he felt well. He did feel mildly short of breath. He did not endorse symptoms of chest discomfort or pressure with that activity. Did state that he had chest pressure at times at ascending stairs or walking rapidly. Unfortunately, he cannot report any improvement in his symptoms since admission. Allergies Allergy/AdvReac Type Severity Reaction Status Date / Time hydralazine Allergy Unknown anorexia,h/ Verified 08/22/19 14:20 a,nausea,pa lpitations Home Medications Home Medications Medication Instructions Recorded Confirmed Type calcium carbonate-vitamin D3 1 tab PO QDL 06/01/18 08/22/19 History [Calcium 500 + D] carbidopa-levodopa 1 tab PO TID 06/01/18 08/22/19 History clopidogrel 75 mg PO QAM 06/01/18 08/22/19 History ezetimibe-simvastatin 1 tab PO HS 06/01/18 08/22/19 History furosemide 40 mg PO QAM 06/01/18 08/22/19 History nitroglycerin [Nitrostat] 1 tab BUCCAL UD PRN 06/01/18 08/22/19 History finasteride 5 mg tablet 5 mg PO QAM tab 04/13/19 08/22/19 History dabigatran etexilate 75 mg capsule 75 mg PO BID #90 cap 04/29/19 08/22/19 Rx clonidine HCl 0.2 mg tablet 0.4 mg PO TID #540 tab 05/12/19 08/22/19 Rx CPAP Machine #10 [id number] 07/13/19 08/22/19 Rx albuterol sulfate 90 mcg/actuation 2 puffs INH Q6H PRN #18 gm 08/16/19 08/22/19 Rx aerosol inhaler allopurinol 200 mg PO QAM 08/22/19 08/22/19 History amlodipine 10 mg PO QAM 08/22/19 08/22/19 History calcitriol 0.5 mcg PO QAM 08/22/19 08/22/19 History levothyroxine 100 mcg PO QAM 08/22/19 08/22/19 History tiotropium bromide [Spiriva 2 puffs INH QAM 08/22/19 08/22/19 History Respimat] Patient History Medical History Atrial fibrillation HTN (hypertension) (Chronic) Hypothyroid (Chronic) Surgical History H/O vasectomy History of appendectomy Hx of tonsillectomy Family History Father Diabetes Social History Preferred Language: French Communication Ability: Effective Visual Impairment: No Limitations Hearing Ability: Normal Analyst Programmer Required: No Beliefs That Will Affect Care: None marital status: Current Living Situation: Spouse Current Living Situation Comment: from home current occupational status: retired Other Information That Helps Us Care for You: No Feels Safe at Home: Yes Safety Concerns: Feels Safe At This Time Smoking Status: Former smoker Age Started Using Tobacco: 12 ; Age Quit Using Tobacco: 53 ; packs per day: 1 ; Cigarettes Per Day: 20 ; Do You Dip or Chew Tobacco: No ; Second Hand Exposure: No ; Tobacco Cessation Education Requested by Patient: No Hx Alcohol Use: Yes Alcohol type: beer Alcohol Intake Frequency: Rarely Hx Substance Use: No Childhood Exposure to Second-Hand Smoke: Yes during the past year weight has: remained stable Seatbelt Use: always Review of Systems Review of Systems: All systems reviewed & are unremarkable except as noted in HPI & below Patient does report eating out more recently. He does not monitor his weights at home. He denies symptoms of dizziness or lightheadedness. No syncope. No sense of palpitation. Physical Exam Physical Exam: The patient is alert and oriented. Mood and affect appeared normal. He answered all questions appropriately. HEENT: Pupils are equal and reactive to light and accommodation. Extraocular movements are intact. The sclerae are anicteric. Neuro: Cranial nerves intact Neck: Patient's neck is supple. He has palpable carotid pulses bilaterally without bruits on auscultation. There is no evidence of jugular venous distention. The thyroid is not enlarged. Lungs: Decreased breath sounds in the right base, occasional crackle in the left base. No expiratory wheezing. Normal respiratory effort. Cardiac: Heart demonstrates an irregular rate and rhythm. Normal S1 and S2. No murmurs on examination. Pulses: The patient has palpable radial pulses bilaterally that are equal in intensity Extremities: There was no evidence of hypoperfusion. There is no cyanosis or clubbing. Mild lower extremity edema. Skin: I did not appreciate any rashes on examination today. Results & Data Vital Signs (Past 12 Hours) Vital Signs Temp Pulse Pulse Pulse Pulse Pulse Resp 08/23/19 11:25 84 93 H 70 08/23/19 10:52 36.8 C 69 18 08/23/19 07:53 36.7 C 78 18 08/23/19 04:59 36.7 C 56 L 20 08/23/19 01:50 50 L Resp Resp Resp BP Pulse Ox Pulse Ox Pulse Ox 08/23/19 11:25 18 18 18 91 91 08/23/19 10:52 148/68 H 90 08/23/19 07:53 126/78 97 08/23/19 04:59 138/62 93 08/23/19 01:50 Pulse Ox 08/23/19 11:25 94 08/23/19 10:52 08/23/19 07:53 08/23/19 04:59 08/23/19 01:50 Laboratory Results Abnormal Lab Results 08/22/19 08/22/19 08/22/19 13:35 13:35 13:35 WBC 8.17 RBC 4.10 L Hgb 12.8 L Hct 38.5 L MCV 93.9 MCH 31.2 MCHC 33.2 RDW Std Deviation 51.8 H RDW Coeff of [place] 15.1 H Plt Count 245 MPV 10.6 H Immature Gran % (Auto) 0.4 Neut % (Auto) 72.1 Lymph % (Auto) 13.6 [place] % (Auto) 12.4 Eos % (Auto) 1.3 Baso % (Auto) 0.2 Immature Gran # (Auto) 0.03 H Neut # (Auto) 5.89 Lymph # (Auto) 1.11 L [place] # (Auto) 1.01 H Eos # (Auto) 0.11 Baso # (Auto) 0.02 PT 12.3 H INR 1.2 H APTT 39.0 H PTT Ratio 1.4 Sodium 141 Potassium 3.4 L Chloride 105 Carbon Dioxide 27 Anion Gap 9.0 BUN 36 H Creatinine 1.85 H Est Cr Clr Drug Dosing 28.2 Est GFR ( Amer) 37.6 Est GFR (Non-Af Amer) 32.5 BUN/Creatinine Ratio 19.5 Glucose 131 H Calcium 9.7 Magnesium Total Bilirubin 0.8 AST 21 ALT 9 L Alkaline Phosphatase 67 Troponin I < 0.015 NT-Pro-B Natriuret Pep Total Protein 7.2 Albumin 3.7 Globulin 3.5 Albumin/Globulin Ratio 1.0 Lipase 133 08/23/19 08/23/19 06:13 06:13 WBC 8.32 RBC 4.27 L Hgb 13.3 L Hct 41.1 L MCV 96.3 MCH 31.1 MCHC 32.4 RDW Std Deviation 53.2 H RDW Coeff of [place] 15.2 H Plt Count 271 MPV 10.9 H Immature Gran % (Auto) 0.2 Neut % (Auto) 62.6 Lymph % (Auto) 19.4 [place] % (Auto) 13.9 Eos % (Auto) 3.5 Baso % (Auto) 0.4 Immature Gran # (Auto) 0.02 Neut # (Auto) 5.21 Lymph # (Auto) 1.61 [place] # (Auto) 1.16 H Eos # (Auto) 0.29 Baso # (Auto) 0.03 PT INR APTT PTT Ratio Sodium 139 Potassium 3.8 Chloride 104 Carbon Dioxide 30 Anion Gap 5.0 BUN 33 H Creatinine 1.89 H Est Cr Clr Drug Dosing 27.6 Est GFR ( Amer) 36.7 Est GFR (Non-Af Amer) 31.6 BUN/Creatinine Ratio 17.6 Glucose 112 H Calcium 9.8 Magnesium 2.4 Total Bilirubin AST ALT Alkaline Phosphatase Troponin I NT-Pro-B Natriuret Pep 3285 H Total Protein Albumin Globulin Albumin/Globulin Ratio Lipase Diagnostic Findings Chest CT did not demonstrate any evidence of pulmonary embolus. Small right pleural effusion. Right lower lobe atelectasis. Echocardiogram performed today revealed preserved LV systolic function. He had biatrial enlargement and evidence of pulmonary hypertension. ECG Additional Comments: Baseline EKG demonstrated atrial fibrillation and nonspecific ST and T-wave changes. PG Care Time/CCT Total # of Minutes Spent Total Time Spent with Patient: Total time spent is greater than 50% in coordination of care (as documented) at patient's floor/unit and/or counseling patient:
[2019-08-23] MEDS: CALCIUM 600MG + VIT D 400 IU TAB PO SCH (13:18)
[2019-08-23] MEDS ORDERED: FUROSEMIDE 80 MG in SYRINGE 0 ML IV ONE (19:00)
--- NOTE | 2019-08-23 20:04 | Hospitalist Progress Note ---
Date of Service August 23, 2019 Assessment & Plan (1) Pleural effusion: 83-year-old male was admitted on 22 August 2019 for SOB and pleural effusion. SOB, Pleural effusion, hypoxia, dyspnea on exertion/Pulm HTN/Acute on chronic diastolic CHF: Reported pain-free shortness of breath over the past month, worse in the past week or so. Seems mostly exertional. No reported fever or productive cough. Followed by pulmonology as outpatient (see related notes) today and referred to ED by them. Noted to have a new pleural effusion on CTA. Does not seem to be in overt cardiac failure. No obvious signs of infection to include lab work-up here. Does have a 40 pk/yr history of smoking. - In ED, afebrile, bradycardic, normotensive, with lowest room SpO2 86%. WBC 8. D-dimer 590. BNP 2755. CTA chest notable for no PE seen, right pleural effusion with right lower lobe atelectasis, and interval resolution of left upper lobe infiltrate. 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 EKG was afib rate 69 and TnI was negative. - No acute treatments in the ED beyond supplemental oxygen. - Now weaned off O2 -Consult pulmonology for consideration of pleurocentesis-none needed. - Continue Lasix at 80 mg PO daily and give an extra dose of Lasix 80mg IV x1 this afternoon ECHO with preserved EF, with Pulm HTN -monitor I/Os, daily weights Bradycardia: rates into the 30s at night last night and was not wearing CPAP. Consulted Cardiology-plan for treadmill exercise stress test in the AM to see how if tolerates higher rates and can get heart rate up -could be secondary to clonidine, high doses-continue same doses for now -follow on tele -encouraged to wear CPAP tonight COPD: Followed by pulmonology as outpatient. Reportedly is supposed to be on Spiriva and Ventolin prn. Continue both Peripheral edema, bilateral extremity venous insufficiency: Recent increase in home Lasix from 40 to 80 mg daily. We will keep on higher dose for now and serially monitor. Giving lasix IV this afternoon Hypokalemia: improved, replace while giving loop diuretics HTN, HLD, CAD, PAD: Continue home amlodipine, clonidine, Plavix, Vytorin, Lasix as above. Chronic diastolic CHF: Oct 2017 TTE noted EF 60-65%, severe pulmonary hypertension, mild MR and TR (see full report). See above Anemia: Admit Hb 12.8 (baseline around 12s). No overt evidence of acute bleeding. Monitoring. CKD stage III, renal artery stenosis: Admit Cr 1.85 (baseline around 1.8). 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 Continue home calcitriol. Mild idiopathic right javi-Parkinson's disease: On Sinemet. Chronic atrial fibrillation: On home Pradaxa. GERD: Unclear if ranitidine was recently stopped. Hypothyroidism: Continue home levothyroxine. TSH 2.83 a few months ago Provoked DVT: Previous [place] filter placement. Obstructive sleep apnea: Uses CPAP at night. Encouraged to use Gout: Continue home allopurinol. Code status: Full code. Diet: Regular, low sodium. DVT prophy: On home Pradaxa. PT/OT: Ordered. Had recently undergone PT as outpatient for left hip pain. Dispo: Admit to med surg telemetry. At baseline, lives at home with his . (2) Hypoxia: (3) Dyspnea on exertion: (4) Mild obstruction of pulmonary airflow: (5) Peripheral edema: (6) Hypokalemia: (7) Hypertension: (8) Dyslipidemia: (9) CAD in [place] artery: (10) PAD (peripheral artery disease): (11) Chronic diastolic congestive heart failure: (12) Anemia: (13) Chronic kidney disease, stage 3 (moderate): (14) Parkinson's disease: (15) Atrial fibrillation: (16) GERD (gastroesophageal reflux disease): (17) Hypothyroidism: (18) History of DVT (deep vein thrombosis): (19) Apnea, sleep: (20) Gout: Subjective Feeling better. Feels LE edema still present which is what brought him in. He reports he has CPAP at home but didn't want to wear it here. He is agreeable to wearing it tonight as he had bradycardia in to the 30s wihtout it. Denies chest pain. Denies nausea or abd pain. Is cele po. Discussed case with Cardiology Tele with Afib, rates frequently dipping into the 30s at night Review of Systems Review of Systems: All systems reviewed & are unremarkable except as noted in HPI & below Physical Exam Constitutional: WD/WN, vitals as above Eyes: + anicteric sclerae ENMT: external ear and nose normal, oropharynx normal Neck: trachea midline, no thyromegaly Respiratory: normal respiratory effort, lungs clear to auscultation Cardiovascular: Rate/Rhythm: + bradycardic and + irregularly irregular Heart Sounds: no murmur Extremities: + edema (1+ pitting edema legs bilat) Chest (Breasts): Chest: normal inspection of chest Gastrointestinal (Abdomen): normal bowel sounds, soft, nontender, no hepatosplenomegaly Musculoskeletal: Extremities: extremities normal to inspection; no cyanosis and no clubbing Skin: no rashes, warm and dry Neurologic: moves all extremities and awake; no focal motor deficits Psychiatric: A+Ox3, euthymic affect Results & Data Vital Signs (Past 12 Hours) Vital Signs Temp Pulse Pulse Pulse Pulse Pulse Resp 08/23/19 15:50 82 08/23/19 15:24 36.9 C 69 18 08/23/19 11:25 84 93 H 70 08/23/19 10:52 36.8 C 69 18 Resp Resp Resp BP BP Pulse Ox Pulse Ox 08/23/19 15:50 08/23/19 15:24 168/52 H 95 08/23/19 11:25 18 18 18 91 08/23/19 10:52 148/68 H 90 Pulse Ox Pulse Ox 08/23/19 15:50 08/23/19 15:24 08/23/19 11:25 91 94 08/23/19 10:52 Laboratory Results labs reviewed PG Care Time/CCT Total # of Minutes Spent Total Time Spent with Patient: Total time spent is greater than 50% in coordination of care (as documented) at patient's floor/unit and/or counseling patient: (1) Apnea, sleep Sleep apnea type: obstructive Qualified Code(s): G47.33 - Obstructive sleep apnea (adult) (pediatric)
[2019-08-23] MEDS: EZETIMIBE/SIMVASTATIN 10/20 TAB PO SCH (20:07)
[2019-08-24] MEDS: LEVOTHYROXINE SODIUM 100 MCG TABLET PO SCH (06:00)
[2019-08-24 07:19] VITALS: TEMP 97.7
[2019-08-24 08:57] LABS: BUN Creatinine Ratio 19.2 (10-20); Calcium 9.2 mg/dl (8.5-10.1); Creatinine Clr Calc Pharmacy 26.3 ml/min; Est GFR (African American) 34.5; Est GFR (Non-African American) 29.7; Magnesium 2.4 mg/dl (1.8-2.4); Potassium 3.7 mmol/L (3.5-5.1)
[2019-08-24] MEDS: AMLODIPINE BESYLATE 5 MG TAB PO SCH (09:24)
[2019-08-24] MEDS: cloNIDine HCL 0.1 MG TAB PO SCH ×2 (09:24→13:46)
[2019-08-24] MEDS ORDERED: POTASSIUM CHLORIDE 20 MEQ TABCR PO STA (09:40)
[2019-08-24] MEDS: CLOPIDOGREL BISULFATE 75 MG TAB PO SCH (10:47)
[2019-08-24] MEDS: FUROSEMIDE 80 MG TAB PO SCH (10:47)
[2019-08-24] MEDS: CARBIDOPA/LEVODOPA 25/100MG TAB PO SCH ×2 (10:48→13:46)
[2019-08-24] MEDS: allopurinoL 100 MG TAB PO SCH (10:48)
[2019-08-24] MEDS: FINASTERIDE 5 MG TAB PO SCH (10:49)
[2019-08-24] MEDS: CALCITRIOL 0.25 MCG CAPSULE PO SCH (10:50)
[2019-08-24] MEDS: TIOTROPIUM BROMIDE 5 PUFF/90 MCG INH INH SCH (10:51)
[2019-08-24] MEDS: DABIGATRAN ETEXILATE 75 MG CAP PO SCH (10:52)
[2019-08-24] MEDS: CALCIUM 600MG + VIT D 400 IU TAB PO SCH (10:55)
--- NOTE | 2019-08-24 13:07 | Cardiology Progress Note ---
Date of Service August 24, 2019 Assessment & Plan (1) Dyspnea on exertion: I suspect his dyspnea is most likely related to pulmonary vascular congestion. While his chart does not support significant diuresis, he reports urinating quite frequently and has had both subjective and objective improvement in his breathing. His edema appears resolved. I think the etiology of his symptoms was likely pulmonary vascular congestion. I think 1 more dose of intravenous diuretic this afternoon would be reasonable prior to discharge. He will need to be monitored on an outpatient basis in order to prevent additional decompensation. He could probably be discharged on his current dose of diuretic which is 80 milligrams p.o. daily.. No evidence of ischemia on his stress echocardiogram. (2) Atrial fibrillation: He did not appear to have chronotropic incompetence. Overall heart rate response was perhaps somewhat blunted, but he did achieve his target heart rate and heart rates well over 100 with exercise. He should continue on his anticoagulation indefinitely. Subjective This more the patient claims to be feeling much better. States that during his stress test he fell well and could not have gone that far previously. He was satisfied with this performance. He states that his breathing is much improved currently and that he is back to his baseline. He denies any orthopnea. No symptoms of chest pain either at rest or during his exercise test. No dizziness. Review of Systems Review of Systems: Patient also notes that his lower extremity swelling is improved. Physical Exam Physical Exam: The patient is alert and oriented. Mood and affect appeared normal. He answered all questions appropriately. HEENT: Pupils are equal and reactive to light and accommodation. Extraocular movements are intact. The sclerae are anicteric. Neuro: Cranial nerves intact Neck: Patient's neck is supple. He has palpable carotid pulses bilaterally without bruits on auscultation. There is no evidence of jugular venous distention. The thyroid is not enlarged. Lungs: Decreased breath sounds in the right base, occasional crackle in the left base. No expiratory wheezing. Normal respiratory effort. Cardiac: Heart demonstrates an irregular rate and rhythm. Normal S1 and S2. No murmurs on examination. Pulses: The patient has palpable radial pulses bilaterally that are equal in intensity Extremities: There was no evidence of hypoperfusion. There is no cyanosis or clubbing. Lower extremity edema appears resolved. Skin: I did not appreciate any rashes on examination today. Results & Data Vital Signs (Past 12 Hours) Vital Signs Temp Pulse Pulse Resp BP BP Pulse Ox 08/24/19 11:18 36.5 C 66 18 134/64 93 08/24/19 07:17 36.5 C 74 20 180/70 H 91 08/24/19 06:08 73 08/24/19 04:37 36.7 C 60 20 148/66 H 99 Laboratory Results Abnormal Lab Results 08/24/19 08:26 Sodium 141 Potassium 3.7 Chloride 105 Carbon Dioxide 29 Anion Gap 7.0 BUN 38 H Creatinine 1.99 H Est Cr Clr Drug Dosing 26.3 Est GFR ( Amer) 34.5 Est GFR (Non-Af Amer) 29.7 BUN/Creatinine Ratio 19.2 Glucose 130 H Calcium 9.2 Magnesium 2.4 Diagnostic Findings Stress echocardiogram performed today revealed poor exercise tolerance overall but no evidence of inducible ischemia and an adequate chronotropic response PG Care Time/CCT Total # of Minutes Spent Total Time Spent with Patient: Total time spent is greater than 50% in coordination of care (as documented) at patient's floor/unit and/or counseling patient:
[2019-08-24] MEDS ORDERED: FUROSEMIDE 40 MG in SYRINGE 0 ML IV STA (15:22)
[2019-08-24 15:23] VITALS: O2SAT 96
--- NOTE | 2019-08-24 15:32 | Discharge Summary ---
Date of Service August 24, 2019 Admission HPI Per Admitting Provider 83-year-old male was referred by his geothermal powerplant mechanic helper for further evaluation of shortness of breath. Patient states that normally he exercises daily at the [facility]. Over the past month he has noticed some shortness of breath with walking up inclines. This has worsened such that he has stopped his routine walks at the [facility] over the past 1 to 2 weeks. He denies any chest pain / discomfort associated with this. During past 1-2 weeks has also noticed increased bilateral leg edema for which he increased his normal Lasix 40 mg daily up to 80 mg daily. However, he says he has not noticed much leg edema improvement and only today did he have increased urine output. He decided to see his geothermal powerplant mechanic helper for evaluation of the above and was ultimately referred to the ED for lab work. He denies any known fevers or feeling of illness, says he has a rare dry cough, does not use oxygen at home, but does use a CPAP at night. He says he does not use his Spiriva because either forgets or he overall feels okay. He has been using his Ventolin about once per day. Otherwise he denies acute concerns. - Past medical history includes hypertension, hyperlipidemia, coronary disease, peripheral artery disease, diastolic CHF, anemia, CKD stage III, renal artery stenosis, mild idiopathic right javi-Parkinson's disease, chronic atrial fibrillation, GERD, hypothyroidism, provoked DVT, subdural hematoma, obstructive sleep apnea, gout, vitamin D deficiency, hearing loss. - Past surgical history includes vasectomy, appendectomy, tonsillectomy, left renal stents and angioplasty, left CEA, subdural hematoma status post demi cuation, [place] filter placement - Social history includes quitting smoking in 1992 (prior 1 pack/day x 40 years), rare alcohol use, prior [employer] service in [place] in the 1950s. Possible asbestos exposure. Presently lives at home with his . Principal Diagnosis Acute on chronic diastolic CHF, pulmonary hypertension, pleural effusion Discharge Exam Constitutional WD/WN, vitals as above Eyes + anicteric sclerae Neck trachea midline, no thyromegaly Respiratory normal respiratory effort Auscultation: + crackles (right base); no rhonchi and no wheezes Cardiovascular Rate/Rhythm: regular rate and + irregularly irregular Heart Sounds: no murmur Extremities: + edema (trace pitting edema legs bilat improved from previous) Chest (Breasts) Chest: normal inspection of chest Gastrointestinal (Abdomen) normal bowel sounds, soft, nontender, no hepatosplenomegaly Musculoskeletal Extremities: extremities normal to inspection; no cyanosis and no clubbing Skin no rashes, warm and dry Neurologic moves all extremities and awake; no focal motor deficits Psychiatric A+Ox3, euthymic affect Discharge Data Allergies Allergy/AdvReac Type Severity Reaction Status Date / Time hydralazine Allergy Unknown anorexia,h/ Verified 08/22/19 14:20 a,nausea,pa lpitations Consultations 08/22/19 17:35 ED Decision to Admit Stat 08/22/19 20:02 Consult Pulmonology Routine 08/23/19 09:48 Consult Cardiology Routine Ordered Studies 08/22/19 13:31 US venous doppler LE BI Stat 08/22/19 16:16 CT angio chest PE protocol Stat CXR Hospital Course (1) Pleural effusion: 83-year-old male was admitted on 22 August 2019 for SOB and pleural effusion. SOB, Pleural effusion, hypoxia, dyspnea on exertion/Pulm HTN/Acute on chronic diastolic CHF: Reported pain-free shortness of breath over the past month, worse in the past week or so. Seems mostly exertional. No reported fever or productive cough. Followed by pulmonology as outpatient (see related notes) today and referred to ED by them. Noted to have a new pleural effusion on CTA. Does not seem to be in overt cardiac failure. No obvious signs of infection to include lab work-up here. Does have a 40 pk/yr history of smoking. - In ED, afebrile, bradycardic, normotensive, with lowest room SpO2 86%. WBC 8. D-dimer 590. BNP 2755. CTA chest notable for no PE seen, right pleural effusi on with right lower lobe atelectasis, and interval resolution of left upper lobe infiltrate. 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 EKG was afib rate 69 and TnI was negative. - No acute treatments in the ED beyond supplemental oxygen. - Now weaned off O2 and passed a 2 step walking test-does not need supplemental O2 -Consult pulmonology for consideration of pleurocentesis-none needed and Pulm noted that his pleural effusion seemed unchanged from previous -he was given 2 extra doses of IV lasix with excellent results of diuresis He was much improved clinically and was ambulating the halls without any dyspnea at time of discharge He had a treadmill exercise stress test and did quite well, no ischemia. - Continue Lasix at 80 mg PO daily upon discharge and have close follow up with PCP, Cardiology. ECHO with preserved EF, with Pulm HTN Bradycardia: rates into the 30s at night the first night while not wearing CPAP. The second night he wore his CPAP and had no difficulties with bradycardia Consulted Cardiology-ordered treadmill exercise stress test and proved he does not have any chronotropic incompetence-no pacer needed -encouraged to wear CPAP even when away from home (reports he often leaves it at home when traveling) -rates normal during day and rise appropriately with walking COPD: Followed by pulmonology as outpatient. Reportedly is supposed to be on Spiriva and Ventolin prn. Continue both Peripheral edema, bilateral extremity venous insufficiency: improved with IV lasix, will continue home lasix 80mg po daily on discharge which was a recent increase in dosage Hypokalemia: improved, replaced while giving IV loop diuretics HTN, HLD, CAD, PAD: Continue home amlodipine, clonidine, Plavix, Vytorin, Lasix as above. Chronic diastolic CHF: Oct 2017 TTE noted EF 60-65%, severe pulmonary hypertension, mild MR and TR (see full report). See above Anemia: Admit Hb 12.8 (baseline around 12s). No overt evidence of acute bleeding. Secondary to chronic kidney disease CKD stage III, renal artery stenosis: Admit Cr 1.85 (baseline around 1.8). 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 Continue home calcitriol. 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 Chronic atrial fibrillation: On home Pradaxa. GERD: Unclear if ranitidine was recently stopped. Hypothyroidism: Continue home levothyroxine. TSH 2.83 a few months ago Provoked DVT: Previous [place] filter placement. Obstructive sleep apnea: Uses CPAP at night. Encouraged to use Gout: Continue home allopurinol. Code status: Full code. Diet: Regular, low sodium. DVT prophy: On home Pradaxa. Dispo: stable for dc to home (2) Hypoxia: (3) Dyspnea on exertion: (4) Mild obstruction of pulmonary airflow: (5) Peripheral edema: (6) Hypokalemia: (7) Hypertension: (8) Dyslipidemia: (9) CAD in [place] artery: (10) PAD (peripheral artery disease): (11) Chronic diastolic congestive heart failure: (12) Anemia: (13) Chronic kidney disease, stage 3 (moderate): (14) Parkinson's disease: (15) Atrial fibrillation: (16) GERD (gastroesophageal reflux disease): (17) Hypothyroidism: (18) History of DVT (deep vein thrombosis): (19) Apnea, sleep: (20) Gout: Total Time Total Time Spent Total Time Spent (In Minutes): 35 min Total Time Includes: Examination of the Patient, Discharge Planning, Medication Reconciliation and Communication With Other Providers (Cardiology) Discharge Plan Discharge Items Patient Disposition: Home - Self-Care Reason For Visit: PULM EDEMA, HYPOXIA Discharge Diagnosis: Pulmonary edema, effusion Condition on Discharge: Good Activity: Resume your previous activity Non-emergency contact: Primary Care Provider, Agate Setter and Senior Examiner Call non-emergency contact if: you have any medication questions and your symptoms worsen Follow-up/Referrals: Chavez Young MD [Primary Care Provider] - 08/29/19 10:30 am (Please, follow up at Dr. Young's office with his associate, Marce Cortez PA-C, on ThursdayAugust 29 at 10:30 am. *If you need to change this appointment, call their office at [phone].) Juanis Arevalo PA-C [Physician Electrophysiology Scientist] - 09/01/19 9:30 am (Please, follow up at [facility] Pulmonology Office Juanis Arevalo PA-C on September 01 at 9:30 am. *If you need to change this appointment, call the office at [phone].) Lissette Reid PA-C [Physician Electrophysiology Scientist] - 09/07/19 4:00 pm (Please, follow up at [facility] Cardiology Office ricky Reid PA-C on ThursdaySeptember 07 at 4:00 pm. *If you need to change this appointment, call the office at [phone].) Diet: Heart Healthy and Low Sodium (2gm) Addtl Attending Provider Instructions: You were admitted for excessive fluid in your lungs called pulmonary edema and a pleural effusion. You were treated with extra lasix through the IV and urinated off quite a bit of extra fluid. You were not requiring oxygen and were feeling better. Your stress test of the heart was normal. Please continue on the same medications as before, including the lasix 80mg once daily. Pending Studies at Discharge: No Stand-Alone Forms: My [facility] Medications and DC Order Prescriptions: Continued dabigatran etexilate 75 mg capsule 75 mg PO BID Qty: 90 RF: 3 clonidine HCl 0.2 mg tablet 0.4 mg PO TID Qty: 540 RF: 3 albuterol sulfate [Ventolin HFA] 90 mcg/actuation HFA aerosol inhaler 2 puffs INH Q6H PRN (Reason: shortness of breath or wheezing) Qty: 18 RF: 3 finasteride 5 mg tablet 5 mg PO QAM RF: 0 (DME) CPAP Machine Misc See Dose Instructions .ROUTE .MEDSUPPLY Qty: 10 RF: 0 clopidogrel 75 mg tablet 75 mg PO QAM RF: 0 carbidopa-levodopa 25-100 mg tablet 1 tab PO TID RF: 0 ezetimibe-simvastatin 10-20 mg tablet 1 tab PO HS RF: 0 nitroglycerin [Nitrostat] 0.4 mg Tablet, Sublingual 1 tab buccal UD PRN (Reason: Chest Pain) RF: 0 calcium carbonate-vitamin D3 [Calcium 500 + D] 500 mg(1,250mg) -200 unit Tablet 1 tab PO QDL RF: 0 levothyroxine 100 mcg tablet 100 mcg PO QAM RF: 0 allopurinol 100 mg tablet 200 mg PO QAM RF: 0 amlodipine 10 mg tablet 10 mg PO QAM RF: 0 calcitriol 0.5 mcg capsule 0.5 mcg PO QAM RF: 0 Spiriva Respimat 2.5 mcg/actuation mist 2 puffs INH QAM RF: 0 Changed furosemide 40 mg Tablet 80 mg PO QAM Qty: 0 RF: 0 Discharge Orders: Discharge Order (Routine); Ordered 08/24/19 Ordered By: Jojo Landaverde Admission Data Admit Date/Time: 08/22/19 19:13 Attending Provider: Jojo Landaverde Admit Provider: Pierre Najera Primary Care Provider: Chavez Young Other Providers: Kailyn Norman ; Jaime Elaine ; Bhupendra Blankenship
[2019-08-24 15:45] VITALS: BP 148/66; PULSE 84
== END 2019-08-24 16:07 | disposition home or self-care (01) | DRG 291 ==
LOC: ED 13:15 → 2N 19:13 → SUATTDRO 19:13 → 2N 19:47

== ENCOUNTER 2021-02-07 09:23 | Observation (INO) ==
[~2021-02-07 09:23] MED LIST changes: -ALLO100T PO; -AMLO10TA3 PO; +BUPIVACAINE 0.25% 30 ML VIAL ONE; -CALC0.5C2 PO; -CARB25TA12 PO; -CLON0.2T PO; -CLOP1TAB15 PO; -DABI1CAP PO; -EZET10TA38 PO; -FRS/40 PO; -IPRA1AER2 INH; -LEVO88TA3 PO; +LIDOCAINE 1% LOCAL 20 ML VIAL ONE; -LVQ750 PO; -METO25TA56 PO; +MIDAZOLAM HCL 5 MG/ML 1 ML VIAL ONE; -MULT-506 PO; -NITR0.4S UT; -ORG200 PO; -OXGN; -PRED10TA PO; -RANI150T3 PO; +VANCOMYCIN HCL 1000MG/20ML VIAL ONE; +ceFAZolin 330 MG/ML 1 GM VIAL ONE; +fentaNYL citrate 100 MCG/2 ML VIAL ONE
--- NOTE | 2021-02-07 09:49 | Pre Anesthesia Assessment ---
Date of Service February 07, 2021 Pre Sedation Assessment Cardiovascular + bradycardic Respiratory + respiratory effort normal Pre-Sedation Airway Assessment Smoking Status: Former smoker Hx Sleep Apnea: No Hx Difficult Intubation: No Short, Thick Neck: No Thyromental Distance: > or= 3.5 Finger Breadths Oral Cavity: + Dental Abnormalities Mallampati Class: III ASA: ASA3 Procedure Planning Contraindications for Sedation: none Current Medications Reviewed: Yes Notes The planned sedation has been discussed with the patient. Informed Consent was obtained. I have identified the patient, determined the appropriateness of sedation and have assessed the patient immediately prior to the procedure. All medicine(s) and interventions are by my order.
--- NOTE | 2021-02-07 09:49 | History & Physical Bridge Note ---
Date of Service February 07, 2021 History & Physical Bridge Note I have examined the patient, reviewed the History & Physical and in the interval since the performance of the History & Physical I have noted the following changes of clinical significance: no changes noted
[2021-02-07] MEDS ORDERED: WATER, STERILE FOR INJ 10 ML VIAL ONE (11:28)
--- NOTE | 2021-02-07 11:31 | Electrophysiology Report ---
Date of Service February 07, 2021 Electrophysiology Procedure Electrophysiology Procedure Report Procedure performed: Implantation of single-chamber pacemaker Staff air grinder: Rashawn Blankenship MD Indication: The patient is an 85-year-old gentleman with exercise intolerance, permanent atrial fibrillation and slow ventricular response. Based on his symptoms he was felt to be a good candidate for a permanent pacemaker due to symptomatic nonreversible AV node dysfunction. Procedure in detail: The patient was informed of the risks benefits and alternatives to the intended procedure and she wished to proceed. He was taken to the electrophysiology suite in a fasting state. A preoperative antibiotic had been administered. The patient was monitored electrocardiographically throughout today's procedure and conscious sedation was administered per protocol. The left upper pectoral area is prepped and draped in usual sterile fashion. This area was anesthetized using subcutaneous administration of a xylocaine solution. An incision was made at this site and carried down to the prepectoralis fascia using sharp dissection. Electrocautery was also employed for dissection as well as for hemostasis. A device pocket was fashioned tissues above the pectoralis muscle. Subsequent to this maneuver the left axillary vein was accessed using modified Seldinger technique. A guiding catheter was advanced under fluoroscopic guidance to the interventricular septum. Mapping of the interventricular septum was then performed in order to identify a suitable site for implantation of a pacing lead. Pacing lead was fixated to the interventricular septum. Adequate sensing and threshold parameters were obtained prior to removal of the guiding sheath. In the process of adjusting the redundancy of this lead it dislodged from the septum. At this point a second lead was advanced to the right ventricular apex under fluoroscopic guidance. Adequate sensing and threshold parameters were obtained prior to active fixation of this lead to the endocardial surface. The proximal portion of lead was then sutured the prepectoralis fascia using nonabsorbable suture. The device pocket was irrigated with antibiotic solution. The lead was then attached to the device. The device was enclosed in an antibiotic impregnated pouch. The device and lead were then placed in the pocket and pocket was closed in 3 layers of absorbable suture. Steri-Strips and sterile dressing were applied. The device was tested noninvasively prior to conclusion the procedure. The patient tolerated procedure well there no immediate complications. Equipment used: New pulse generator: Band Ripsaw Operator [facility]. Model number: W1 SR 01 serial number [id number] Right ventricular lead: Band Ripsaw Operator [employer]. Model number: [id number] serial number [id number] Measured data: Right ventricular lead: R waves measured 8.3 mV. Pacing threshold 1.4 V at 0.5 ms with a pacing impedance of 515 ohms Impression: Successful implantation of single-chamber permanent pacemaker [facility] Electrophysiology codes Pacing Procedure 1: Pacin Insert/Replace Pacer V PG Moderate Sedation Codes Moderate Sedation Codes Procedure 1: Sedation/Anesthesia: 11504 Mod Sedation by the same physician;Init15 Min Child Age 5 & Up Procedure 2: Sedation/Anesthesia: 14686 Mod Sedation by the same physician; Ea [id number] Minutes
[2021-02-07] MEDS ORDERED: oxyCODONE HCL IR 5 MG TAB (IMMEDIATE RELEASE) PO PRN (11:32)
--- NOTE | 2021-02-07 11:32 | Post Anesthesia Assessment ---
Date of Service February 07, 2021 Post Sedation Assessment Vital Signs Temp Pulse Resp BP Pulse Ox 02/07/21 09:44 36.5 C 63 18 157/66 H 93 Recovery Score Activity: Moves 4 extremities Respiration: Deep Breath/Cough Circulation: +/-20% PreAnes Value Consciousness: Fully Awake Oxygen Saturation: > 92% On Room Air Discharge Sedation Level of Care: Fast Track Phase II Post Sedation Plan On clinical assessment, the patient appears to have tolerated the sedation without complications. Patient is recovering as anticipated. Patient will continue to be monitored by nursing and may be discharged when sedation discharge criteria are met per below protocol. Upon Completions of procedure up to 15 minutes continue every 5 minute vital signs and the P.A.R. score; then discharge to a Phase I or Fast Track to Phase II per the following guidelines: * Discharge Patient to appropriate Phase II area if PAR is 8 or greater or return to pre- procedure baseline. The post - procedure orders will be as directed. * If PAR score is less than 8 or not return to pre-procedure baseline then patient will follow Phase I monitoring till PAR is reached for Phase II. The Phase I may be done in procedure room or may call to secure a Phase I area. * If naloxone or flumazenil are used for reversal, hold in Phase I for continued monitoring from when last reversal dose was given for a minimum of 60 minutes or longer pending the nurse and/or physician discretion of patient condition before discharge to Phase II. Please call the Sedation Physician to re-evaluate and complete post-note for discharge to Phase II area. Do NOT discharge from procedure sedation or Phase 1 until post- sedation evaluation note is complete by procedure /sedation MD Sedation Discharge Instructions to be given to the patient at discharge to home.
[2021-02-07] MEDS ORDERED: NON-FORMULARY MEDICATION (Cpap Machine misc) SCH (15:45)
[2021-02-07] MEDS: ceFAZolin 1000MG 1,000 MG/7.5 ML SYR IV SCH (19:21)
[2021-02-07] MEDS: cloNIDine HCL 0.1 MG TAB PO SCH (20:38)
[2021-02-07] MEDS: CARBIDOPA/LEVODOPA 25/100MG TAB PO SCH (20:39)
[2021-02-07] MEDS ORDERED: EZETIMIBE/SIMVASTATIN 10/20 TAB PO SCH (21:00)
[2021-02-08] MEDS: ceFAZolin 1000MG 1,000 MG/7.5 ML SYR IV SCH (02:40)
[2021-02-08] MEDS ORDERED: LEVOTHYROXINE SODIUM 100 MCG TABLET PO SCH (06:30)
[2021-02-08] MEDS: cloNIDine HCL 0.1 MG TAB PO SCH (08:14)
[2021-02-08] MEDS: CARBIDOPA/LEVODOPA 25/100MG TAB PO SCH (08:14)
[2021-02-08] MEDS ORDERED: FINASTERIDE 5 MG TAB PO SCH (09:00)
[2021-02-08] MEDS ORDERED: allopurinoL 100 MG TAB PO SCH (09:00)
[2021-02-08] MEDS ORDERED: amLODIPine BESYLATE 5 MG TAB PO SCH (09:00)
[2021-02-08] MEDS ORDERED: FUROSEMIDE 40 MG TAB PO SCH (09:00)
[2021-02-08] MEDS ORDERED: CLOPIDOGREL BISULFATE 75 MG TAB PO SCH (09:00)
[2021-02-08] MEDS ORDERED: UMECLIDINIUM BROMIDE 62.5MCG/BLISTER 7 PUFFS/INHALER INH SCH (09:00)
[2021-02-08] MEDS ORDERED: CALCITRIOL 0.25 MCG CAPSULE PO SCH (09:00)
--- NOTE | 2021-02-08 10:13 | XRay Report ---
XR chest 2V PA/lateral CLINICAL HISTORY: Pacemaker insertion. COMPARISON STUDY: Chest radiograph October 31, [address] August 22, 2019. FINDINGS: Single lead left subclavian pacemaker is in place. Lead tip projects over the right ventric le. Cardiomegaly is unchanged. There are trace bilateral pleural fusions. Interlobular septal thicken ing is noted with Nadira B lines. Mild bibasilar opacities are present. There is no pneumothorax. IMPRESSION: 1. No pneumothorax following placement of a left subclavian pacemaker. 2. Cardiomegaly with mild interstitial pulmonary edema, trace bilateral pleural effusions and bibasil ar opacities that favor atelectasis. ACT 112: Negative or not required by law. Electronically signed by: Xu Stiles M.D. 02/08/2021 10:11 AM
--- NOTE | 2021-02-08 11:26 | Discharge Summary ---
Date of Service February 08, 2021 Admission HPI Per Admitting Provider Patient with a history of permanent atrial fibrillation and symptomatic bradycardia Principal Diagnosis q Discharge Exam On the day discharge device implant site was free of hematoma or drainage. No significant erythema. Mild ecchymosis. Discharge Data Allergies Allergy/AdvReac Type Severity Reaction Status Date / Time hydralazine Allergy Unknown anorexia,h/ Verified 02/07/21 09:03 a,nausea,pa lpitations Procedures Performed Operation Date: 02/07/21 10:00 Actual Procedures p Pacer with Ventricular Lead - Bhupendra Blankenship MD s Bundle of his Recording - Bhupendra Blankenship MD Ordered Studies 02/07/21 07:36 CL Cath Imgs for PACS use only Stat 02/07/21 10:00 EP Lab Images for PACS ONCE Hospital Course (1) Bradycardia: On the day of admission the patient underwent implantation of a single- chamber Medtronic pacemaker. Procedure was uncomplicated. Following morning his device interrogation revealed normal function of the ventricular lead. The wound appear to be healing well. Chest x-ray and device interrogation were normal. Total Time Total Time Spent Total Time Spent (In Minutes): 20 Total Time Includes: Examination of the Patient, Discharge Planning and Medication Reconciliation Discharge Plan Discharge Items Patient Disposition: Home - Self-Care Reason For Visit: Bradycardia Discharge Diagnosis: Symptomatic bradycardia Activity: Per Instructions section Activity Comment: No lifting left arm above shoulder be high neck for 6 week Lifting: No more than 10 pounds Lifting Comment: No greater than 10 lb with left arm Bathing: Keep incision dry Bathing Comment: Keep wound dry Steri-Strips intact until follow-up next week Driving/Machine Use: Resume 1 day after discharge Non-emergency contact: Electrical Engineering Teacher Call non-emergency contact if: your symptoms worsen, your pain is concerning for you, you have a fever and your wound has increased redness Follow-up/Referrals: ProChavez MD [Primary Care Provider] - Diet: Heart Healthy Addtl Attending Provider Instructions: May resume amoxicillin. Please contact your dentist regarding your Pradaxa. Would consider restarting Pradaxa on ThursdayFebruary 10 unless your dentist has an objection. Pending Studies at Discharge: No Stand-Alone Forms: My [facility] [employer], Smoking Cessation Medications and DC Order Prescriptions: Continued allopurinol 100 mg tablet 200 mg PO DAILY Qty: 180 RF: 3 calcitriol 0.5 mcg capsule 0.5 mcg PO QAM Qty: 90 RF: 3 levothyroxine 100 mcg tablet 100 mcg PO QAM Qty: 90 RF: 3 ezetimibe-simvastatin 10-20 mg tablet 1 tab PO HS Qty: 90 RF: 3 furosemide 40 mg tablet 120 mg PO DAILY Qty: 270 RF: 3 clopidogrel 75 mg tablet 75 mg PO QAM Qty: 90 RF: 3 dabigatran etexilate 75 mg capsule 75 mg PO BID Qty: 180 RF: 3 Spiriva Respimat 2.5 mcg/actuation mist 2 inh inhalation DAILY Qty: 3 RF: 1 carbidopa-levodopa 25-100 mg tablet 1 tab PO TID 90 Days Qty: 270 RF: 1 amlodipine 10 mg tablet 10 mg PO QAM Qty: 90 RF: 3 (DME) CPAP Machine Misc See Rx Instructions .ROUTE .MEDSUPPLY Qty: 1 RF: 0 albuterol sulfate [Ventolin HFA] 90 mcg/actuation HFA aerosol inhaler 2 puffs INH Q6H PRN (Reason: shortness of breath or wheezing) Qty: 18 RF: 3 clonidine HCl 0.2 mg tablet 0.2 mg PO TID Qty: 540 RF: 3 nitroglycerin [Nitrostat] 0.4 mg tablet, sublingual 0.4 mg buccal UD PRN (Reason: Chest Pain) Qty: 25 RF: 5 finasteride 5 mg tablet 5 mg PO QAM RF: 0 (DME) CPAP Machine Misc See Dose Instructions .ROUTE .MEDSUPPLY Qty: 10 RF: 0 calcium carbonate-vitamin D3 [Calcium 500 + D] 500 mg(1,250mg) -200 unit Tablet 1 tab PO QDL RF: 0 Discharge Orders: Discharge Order (Routine); Ordered 02/08/21 Ordered By: Bhupendra Blankenship Admission Data Admit Date/Time: 02/07/21 10:17 Attending Provider: Bhupendra Blankenship Admit Provider: Bhupendra Blankenship Primary Care Provider: Chavez Young Other Interventions: Discharge Summary Assessment (RN) Last Done: 02/08/21 10:59 Coding Level of Care Code 74712 OBS Care - Discharge Diagnoses Bradycardia R00.1
[2021-02-08] MEDS ORDERED: CALCIUM 600MG + VIT D 400 IU TAB PO SCH (11:30)
--- NOTE | 2021-02-19 12:18 | Coding Query ---
A supporting diagnosis is required for the test/procedure performed on this patient in order for us to be reimbursed by the patient's insurance. Please provide a supporting diagnosis for the following test/procedure listed below next to the test name along with your signature. *If there is no additional diagnosis for this patient that would support the following test/procedure please document that below next to the test/procedure. Test(s)/Procedure(s) that require a supporting diagnosis: * 45377 CARDIAC PACEMAKER DIAGNOSIS: DATE OF SERVICE: 02/07/21 Provider Signature: Date: Thank you Thor Hauser [facility] Information Management Once completed, please kindly fax back to [phone] For questions please call [phone] [place]
== END 2021-02-08 13:15 | disposition home or self-care (01) ==
LOC: 2S 09:23 → EP 09:23

== ENCOUNTER 2021-11-18 10:31 | Inpatient (IN) ==
[2021-11-18] MEDS ORDERED: ALBUT/IPRATROP 3MG/0.5MG NEB 3 ML VIAL NEB STA (11:08)
--- NOTE | 2021-11-18 11:09 | Emergency Department Note ---
Impression & Plan Hypoxia, CHF (congestive heart failure), SOB (shortness of breath), Fluid overload ED Provider Note NAME: RONNIE HAUSER AGE: 86 SEX: M : 1935 ARRIVES VIA: Walk-In INFORMANT: [Patient] ED PROVIDER(S): [Cedrick Hughes MD] CHIEF COMPLAINT: Short of breath HISTORY OF PRESENT ILLNESS: The patient is an 86-year-old male who has history of CHF. Presents with about 2 weeks of shortness of breath. Exertion makes his symptoms worse. He has not had cough or fever. No chest pain. He does not think he has gained any fluid weight. He has been using diuretics as prescribed. The patient states that he is vaccinated for COVID-19 x3. He has had a flu vaccination. No recent sick contacts. REVIEW OF SYSTEMS: See HPI for pertinent positives and negatives. A total of ten systems were reviewed and were otherwise negative. PMHx/PSHx: See Below SOCIAL HISTORY: See Below. PHYSICAL EXAM: GENERAL: Patient is in no acute distress. HEENT: No acute trauma, normocephalic atraumatic, mucous membranes moist, no nasal congestion, no scleral icterus. NECK: No stridor, no adenopathy, no meningismus, trachea is midline. LUNGS: A few scattered crackles and wheezes bilaterally. No respiratory distress. Breath sounds equal. HEART: Irregular rhythm, no obvious murmurs, normal rate. ABDOMEN: Soft, nontender, bowel sounds positive, no hernias, no peritonitis. EXTREMITIES: No cyanosis, mild bilateral pedal edema, full range of motion of all the joints without pain or difficulty, no signs for acute trauma. NEUROLOGIC: Oriented x 3, no acute motor or sensory deficits, no focal weakness. SKIN: No rash, no jaundice, no diaphoresis. DIFFERENTIAL DIAGNOSIS: Reactive airway disease, pneumonia, COVID-19, influenza, pneumothorax, COPD, CHF, infection, cardiac ischemia, pulmonary embolism, bronchitis, musculoskeletal, gastrointestinal, as well as other pathologies. EMERGENCY DEPARTMENT COURSE/PROCEDURES: ECG: Indication was shortness of breath. The ECG shows a ventricular pacemaker with some [place] beats. The rate is 75. There is some baseline artifact. No obvious ST elevation. The QTc is 484. Continuous Cardiac Monitoring: An order was placed for continuous cardiac monitoring. The monitor shows a rate of 78 with a ventricular pacemaker and PVCs. Critical Care Note: I have personally spent 41 minutes of critical care time in the direct management of this patient. This includes bedside care, interpretation of diagnostic studies, and testing, discussion with consultants, patient, and family members, and other required patient management activities. This 41 minutes is in excess of all separately billable procedures. MEDICAL DECISION MAKING: There is no leukocytosis or concerning anemia. There is a normal platelet count. INR is slightly high at 1.2, likely from his Pradaxa use. Creatinine was elevated at 1.97, this is baseline. BNP was quite high consistent with fluid overload and CHF. No concerning liver enzyme elevation. Influenza and Covid testing returned negative. Chest x-ray does not show CHF. ECG showed a ventricular pacemaker, no obvious ischemia. Cardiac enzyme testing x1 is not consistent with acute cardiac injury. On exam, the patient had some crackles, he had some wheezing. The patient was given a DuoNeb, IV Bumex. The patient did become hypoxic here in the ED, he required O2 supplementation. Given the dyspnea, given the hypoxia, given the CHF and fluid overload, I do think a hospital stay is warranted. I spoke with the patient and case management. The on-call hospitalist was consulted. Past Med/Surg History Medical History Chronic constipation Former smoker Gout History of DVT (deep vein thrombosis) HTN (hypertension) Hypothyroid Pleural effusion Subdural hematoma (2006) Surgical History H/O vasectomy History of appendectomy History of renal stent (2006) History of renal stent (2008) Hx of tonsillectomy S/P carotid endarterectomy (1994) S/P insertion of inferior vena caval filter Family History Father Diabetes Denies family history of Ovarian cancer Prostate cancer Myocardial infarction Breast cancer Lung cancer Colorectal cancer Stroke Social History Smoking Status: Former smoker Age Started Using Tobacco: 12; Age Quit Using Tobacco: 53; packs per day: 1; Cigarettes Per Day: 20; Second Hand Exposure: No; Hx Alcohol Use: Yes Alcohol type: beer Hx Substance Use: No Preferred Language: Kinyarwanda Communication Ability: Effective Visual Impairment: No Limitations Hearing Ability: Normal Ginner Helper Required: No Beliefs That Will Affect Care: None marital status: Current Living Situation: Spouse Current Living Situation Comment: from home current occupational status: retired Feels Safe at Home: Yes Childhood Exposure to Second-Hand Smoke: Yes during the past year weight has: remained stable Physical Activity Frequency: Daily Physical Activity Frequency Comment: walks a mile every day in nice weather Seatbelt Use: always Assistive Devices: None Allergies Allergies Allergy/AdvReac Type Severity Reaction Status Date / Time hydralazine AdvReac Severe anorexia,h/ Verified 11/18/21 11:05 a,nausea,pa lpitations Home Meds Home Medications Medication Instructions Recorded Confirmed calcium carbonate 500 mg-vitamin 1 tab PO QDL 06/01/18 11/18/21 D3 5 mcg (200 unit) tablet (Calcium 500 + D) finasteride 5 mg tablet 5 mg PO QAM tab 04/13/19 11/18/21 Previous Rx's Medication Instructions Recorded CPAP Machine #10 ea 07/13/19 CPAP Machine #1 ea 04/24/20 nitroglycerin 0.4 mg sublingual 0.4 mg BUCCAL UD PRN #25 tab 01/08/21 tablet (Nitrostat) albuterol sulfate 90 mcg/actuation 2 puff INHALATION Q6H PRN #3 04/04/21 aerosol inhaler (ProAir HFA) inhaler allopurinol 100 mg tablet 200 mg PO DAILY #180 tab 05/28/21 calcitriol 0.5 mcg capsule 0.5 mcg PO QAM #90 cap 05/28/21 clopidogrel 75 mg tablet 75 mg PO QAM #90 tab 05/28/21 ezetimibe 10 mg-simvastatin 20 mg 1 tab PO HS #90 tab 05/28/21 tablet furosemide 40 mg tablet 120 mg PO DAILY #270 tab 05/28/21 levothyroxine 100 mcg tablet 100 mcg PO QAM #90 tab 05/28/21 amlodipine 10 mg tablet 10 mg PO QAM #90 tab 07/02/21 dabigatran etexilate 75 mg capsule 75 mg PO BID #180 cap 07/02/21 carbidopa 25 mg-levodopa 100 mg 1 tab PO TID 90 Days #270 tab 09/05/21 tablet clonidine HCl 0.2 mg tablet 0.2 mg PO TID #540 tab 11/14/21 Results & Data (ED) Vital Signs Vital Signs - 24 hr 11/18/21 10:34 11/18/21 10:58 11/18/21 11:00 Temperature 36.5 C Temperature Source Temporal Artery Scan Pulse Rate 78 Pulse Rate [Apical] Pulse Rhythm Regular Pulse Strength Normal Respiratory Rate 22 24 Respiratory Effort / Characteristics Non-Labored Spontaneous Respiratory Depth Normal Respiratory Pattern Regular Blood Pressure 181/66 H Blood Pressure [Left Arm] Blood Pressure Mean 104 Blood Pressure Mean [Left Arm] Blood Pressure Position Sitting Pulse Oximetry 94 94 94 Oxygen Delivery Method Room Air Room Air Room Air Oxygen Flow Rate 93 Sepsis Recent Fever Within 48 Hours No Sepsis New/Unexplained Change in Mental Status No Sepsis Action Taken by Nursing No Action Required 11/18/21 11:25 11/18/21 12:51 Temperature Temperature Source Pulse Rate Pulse Rate [Apical] 68 Pulse Rhythm Pulse Strength Respiratory Rate 20 Respiratory Effort / Characteristics Respiratory Depth Respiratory Pattern Blood Pressure Blood Pressure [Left Arm] 149/67 H Blood Pressure Mean Blood Pressure Mean [Left Arm] 94 Blood Pressure Position Pulse Oximetry 92 87 L Oxygen Delivery Method Room Air Room Air Nasal Cannula Oxygen Flow Rate 2 Sepsis Recent Fever Within 48 Hours Sepsis New/Unexplained Change in Mental Status Sepsis Action Taken by [facility] Medications Current Medication List: was personally reviewed by me Laboratory Data Attestation: I reviewed the patient's lab results. Result diagrams: 11/18/21 11:00 11/18/21 11:00 Lab Results 11/18/21 11/18/21 11/18/21 Range/Units 11:00 11:00 11:00 WBC 10.07 (4.8-10.8) K/uL RBC 4.23 L (4.7-6.1) M/uL Hgb 13.8 L (14.0-18.0) g/dL Hct 40.0 L (42-52) % MCV 94.6 (80-100) fL MCH 32.6 (25-34) pg MCHC 34.5 (32-36) g/dL RDW Std Deviation 53.1 H (36.4-46.3) fL RDW Coeff of [place] 15.5 H (11.5-14.5) % Plt Count 254 (130-400) K/uL MPV 10.8 H (7.4-10.4) fL Immature Gran % (Auto) 0.3 % Neut % (Auto) 75.0 % Lymph % (Auto) 13.8 % [place] % (Auto) 9.7 % Eos % (Auto) 1.0 % Baso % (Auto) 0.2 % Neut # (Auto) 7.55 H (1.4-6.5) K/uL Lymph # (Auto) 1.39 (1.2-3.4) K/uL [place] # (Auto) 0.98 H (0.11-0.59) K/uL Eos # (Auto) 0.10 (0-0.5) K/uL Baso # (Auto) 0.02 (0-0.2) K/uL Immature Gran # (Auto) 0.03 H (0.00-0.02) K/uL PT 11.8 (9.0-12.0) Seconds INR 1.2 H (0.9-1.1) APTT 38.2 H (21.0-31.0) Seconds PTT Ratio 1.5 Sodium 139 (136-145) mmol/L Potassium 3.7 (3.5-5.1) mmol/L Chloride 103 (98-107) mmol/L Carbon Dioxide 25 (21-32) mmol/L Anion Gap 11 (3-11) BUN 30 H (6-23) mg/dl Creatinine 1.97 H (0.6-1.4) mg/dl Est Cr Clr Drug Dosing 25.1 ml/min Est GFR ( Amer) 34.2 ml/min Est GFR (Non-Af Amer) 29.5 ml/min BUN/Creatinine Ratio 15.2 (10-20) Glucose 140 H (70-99(Fasting)) mg/dl Calcium 10.5 H (8.5-10.1) mg/dl Magnesium 2.1 (1.7-2.4) mg/dl Total Bilirubin 0.9 (0.2-1.0) mg/dl AST 19 (13-39) U/L ALT 9 (7-52) U/L Alkaline Phosphatase 62 (34-104) U/L Troponin I 0.03 (0-0.04) ng/ml B-Natriuretic Peptide Total Protein 7.4 (6.0-8.3) gm/dl Albumin 4.4 (3.4-5.0) gm/dl Globulin 3.0 (2.5-4.0) gm/dl Albumin/Globulin Ratio 1.5 (0.9-2) Influ A Molecular Assay (Negative) Influ B Molecular Assay (Negative) SARS-CoV-2, RNA, NAAT (NEGATIVE) 11/18/21 11/18/21 11/18/21 Range/Units 11:05 11:05 11:17 WBC (4.8-10.8) K/uL RBC (4.7-6.1) M/uL Hgb (14.0-18.0) g/dL Hct (42-52) % MCV (80-100) fL MCH (25-34) pg MCHC (32-36) g/dL RDW Std Deviation (36.4-46.3) fL RDW Coeff of [place] (11.5-14.5) % Plt Count (130-400) K/uL MPV (7.4-10.4) fL Immature Gran % (Auto) % Neut % (Auto) % Lymph % (Auto) % [place] % (Auto) % Eos % (Auto) % Baso % (Auto) % Neut # (Auto) (1.4-6.5) K/uL Lymph # (Auto) (1.2-3.4) K/uL [place] # (Auto) (0.11-0.59) K/uL Eos # (Auto) (0-0.5) K/uL Baso # (Auto) (0-0.2) K/uL Immature Gran # (Auto) (0.00-0.02) K/uL PT (9.0-12.0) Seconds INR (0.9-1.1) APTT (21.0-31.0) Seconds PTT Ratio Sodium (136-145) mmol/L Potassium (3.5-5.1) mmol/L Chloride (98-107) mmol/L Carbon Dioxide (21-32) mmol/L Anion Gap (3-11) BUN (6-23) mg/dl Creatinine (0.6-1.4) mg/dl Est Cr Clr Drug Dosing ml/min Est GFR ( Amer) ml/min Est GFR (Non-Af Amer) ml/min BUN/Creatinine Ratio (10-20) Glucose (70-99(Fasting)) mg/dl Calcium (8.5-10.1) mg/dl Magnesium (1.7-2.4) mg/dl Total Bilirubin (0.2-1.0) mg/dl AST (13-39) U/L ALT (7-52) U/L Alkaline Phosphatase (34-104) U/L Troponin I (0-0.04) ng/ml B-Natriuretic Peptide Cancelled Total Protein (6.0-8.3) gm/dl Albumin (3.4-5.0) gm/dl Globulin (2.5-4.0) gm/dl Albumin/Globulin Ratio (0.9-2) Influ A Molecular Assay Negative (Negative) Influ B Molecular Assay Negative (Negative) SARS-CoV-2, RNA, NAAT NEGATIVE (NEGATIVE) 11/18/21 Range/Units 12:01 WBC (4.8-10.8) K/uL RBC (4.7-6.1) M/uL Hgb (14.0-18.0) g/dL Hct (42-52) % MCV (80-100) fL MCH (25-34) pg MCHC (32-36) g/dL RDW Std Deviation (36.4-46.3) fL RDW Coeff of [place] (11.5-14.5) % Plt Count (130-400) K/uL MPV (7.4-10.4) fL Immature Gran % (Auto) % Neut % (Auto) % Lymph % (Auto) % [place] % (Auto) % Eos % (Auto) % Baso % (Auto) % Neut # (Auto) (1.4-6.5) K/uL Lymph # (Auto) (1.2-3.4) K/uL [place] # (Auto) (0.11-0.59) K/uL Eos # (Auto) (0-0.5) K/uL Baso # (Auto) (0-0.2) K/uL Immature Gran # (Auto) (0.00-0.02) K/uL PT (9.0-12.0) Seconds INR (0.9-1.1) APTT (21.0-31.0) Seconds PTT Ratio Sodium (136-145) mmol/L Potassium (3.5-5.1) mmol/L Chloride (98-107) mmol/L Carbon Dioxide (21-32) mmol/L Anion Gap (3-11) BUN (6-23) mg/dl Creatinine (0.6-1.4) mg/dl Est Cr Clr Drug Dosing ml/min Est GFR ( Amer) ml/min Est GFR (Non-Af Amer) ml/min BUN/Creatinine Ratio (10-20) Glucose (70-99(Fasting)) mg/dl Calcium (8.5-10.1) mg/dl Magnesium (1.7-2.4) mg/dl Total Bilirubin (0.2-1.0) mg/dl AST (13-39) U/L ALT (7-52) U/L Alkaline Phosphatase (34-104) U/L Troponin I (0-0.04) ng/ml B-Natriuretic Peptide 845 H Total Protein (6.0-8.3) gm/dl Albumin (3.4-5.0) gm/dl Globulin (2.5-4.0) gm/dl Albumin/Globulin Ratio (0.9-2) Influ A Molecular Assay (Negative) Influ B Molecular Assay (Negative) SARS-CoV-2, RNA, NAAT (NEGATIVE) Administered Medications Discontinued Medications Albuterol (Albut/Ipratrop 3mg/0.5mg Neb 3 Ml Vial) 3 ml NEB NOW STA; Protocol Stop: 11/18/21 11:09 Last Admin: 11/18/21 11:38 Dose: 3 ml Documented by: [id number] Bumetanide 1 mg/ Syringe 4 mls @ 4 mls/min IV NOW STA Stop: 11/18/21 11:36 Last Admin: 11/18/21 13:18 Dose: 4 mls/min Documented by: [id number] Imaging Data Radiologist's Impression: Chest X-Ray 11/18/21 10:59 XR chest 1V portable CLINICAL HISTORY: Shortness of breath. COMPARISON STUDY: Chest CT August 22, 2019. Chest radiograph February 08, 2021. FINDINGS: Left subclavian pacemaker is in place. Moderate cardiomegaly is unchanged. There are small bilateral pleural effusions an associated bibasilar opacities. No pneumothorax. Interstitial pulmonary edema is present. IMPRESSION: Interstitial pulmonary edema with small bilateral pleural effusions and associated bibasilar opacities. ACT 112: Negative or not required by law. Electronically signed by: Xu Stiles M.D. 11/18/2021 11:33 AM Discharge Plan Visit Data Chief Complaint: Shortness of Breath/Dyspnea Stated Complaint: SOB ED Provider: Cedrick Hughes Prescriptions Prescriptions: No Action albuterol sulfate [ProAir HFA] 90 mcg/actuation HFA aerosol inhaler 2 puff inhalation Q6H PRN (Reason: shortness of breath or wheezing) Qty: 3 RF: 1 dabigatran etexilate 75 mg capsule 75 mg PO BID Qty: 180 RF: 3 amlodipine 10 mg tablet 10 mg PO QAM Qty: 90 RF: 3 clonidine HCl 0.2 mg tablet 0.2 mg PO TID Qty: 540 RF: 3 (DME) CPAP Machine Misc See Rx Instructions .ROUTE .MEDSUPPLY Qty: 1 RF: 0 nitroglycerin [Nitrostat] 0.4 mg tablet, sublingual 0.4 mg buccal UD PRN (Reason: Chest Pain) Qty: 25 RF: 5 carbidopa-levodopa 25-100 mg tablet 1 tab PO TID 90 Days Qty: 270 RF: 3 finasteride 5 mg tablet 5 mg PO QAM RF: 0 (DME) CPAP Machine Misc See Dose Instructions .ROUTE .MEDSUPPLY Qty: 10 RF: 0 allopurinol 100 mg tablet 200 mg PO DAILY Qty: 180 RF: 3 calcitriol 0.5 mcg capsule 0.5 mcg PO QAM Qty: 90 RF: 3 clopidogrel 75 mg tablet 75 mg PO QAM Qty: 90 RF: 3 ezetimibe-simvastatin 10-20 mg tablet 1 tab PO HS Qty: 90 RF: 3 furosemide 40 mg tablet 120 mg PO DAILY Qty: 270 RF: 3 levothyroxine 100 mcg tablet 100 mcg PO QAM Qty: 90 RF: 3 calcium carbonate-vitamin D3 [Calcium 500 + D] 500 mg(1,250mg) -200 unit Tablet 1 tab PO QDL RF: 0
[2021-11-18 11:11] LABS: Basophils # (auto) 0.02 K/uL (0-0.2); Basophils % (auto) 0.2 %; Hemoglobin 13.8 g/dL (14.0-18.0); Immature Granulocytes # (auto) 0.03 K/uL (0.00-0.02); Immature Granulocytes % (auto) 0.3 %; Lymphocytes # (auto) 1.39 K/uL (1.2-3.4); Lymphocytes % (auto) 13.8 %; Mean Corpuscular Hemoglobin 32.6 pg (25-34); Mean Corpuscular Hgb Conc 34.5 g/dL (32-36); Mean Corpuscular Volume 94.6 fL (80-100); Mean Platelet Volume 10.8 fL (7.4-10.4); Monocytes # (auto) 0.98 K/uL (0.11-0.59); Monocytes % (auto) 9.7 %; Neutrophils # (auto) 7.55 K/uL (1.4-6.5); Platelet Count 254 K/uL (130-400); RDW Coefficient of Variation 15.5 % (11.5-14.5); RDW Standard Deviation 53.1 fL (36.4-46.3); Red Blood Count 4.23 M/uL (4.7-6.1); White Blood Count 10.07 K/uL (4.8-10.8)
[2021-11-18 11:33] LABS: Influenza A virus by PCR Negative (Negative); Influenza B virus by PCR Negative (Negative)
[2021-11-18 11:33] LABS: Albumin Globulin Ratio 1.5 (0.9-2); Albumin Level 4.4 gm/dl (3.4-5.0); BUN Creatinine Ratio 15.2 (10-20); Bilirubin,Total 0.9 mg/dl (0.2-1.0); Calcium 10.5 mg/dl (8.5-10.1); Creatinine Clr Calc Pharmacy 25.1 ml/min; Est GFR (African American) 34.2 ml/min; Est GFR (Non-African American) 29.5 ml/min; Magnesium 2.1 mg/dl (1.7-2.4); Potassium 3.7 mmol/L (3.5-5.1); Total Protein 7.4 gm/dl (6.0-8.3); Troponin I 0.03 ng/ml (0-0.04)
[2021-11-18 11:34] LABS: INR 1.2 (0.9-1.1); Partial Thromboplastin Ratio 1.5; Partial Thromboplastin Time 38.2 Seconds (21.0-31.0); Prothrombin Time 11.8 Seconds (9.0-12.0)
[2021-11-18] MEDS ORDERED: BUMETANIDE 1 MG in SYRINGE 0 ML IV STA (11:35)
--- NOTE | 2021-11-18 11:35 | XRay Report ---
XR chest 1V portable CLINICAL HISTORY: Shortness of breath. COMPARISON STUDY: Chest CT August 22, 2019. Chest radiograph February 08, 2021. FINDINGS: Left subclavian pacemaker is in place. Moderate cardiomegaly is unchanged. There are small bilateral pleural effusions an associated bibasilar opacities. No pneumothorax. Interstitial pulmonar y edema is present. IMPRESSION: Interstitial pulmonary edema with small bilateral pleural effusions and associated bibas ilar opacities. ACT 112: Negative or not required by law. Electronically signed by: Xu Stiles M.D. 11/18/2021 11:33 AM
--- NOTE | 2021-11-18 13:08 | Electrocardiogram Report ---
Test Reason : Blood Pressure : / mmHG Vent. Rate : 075 BPM Atrial Rate : 070 BPM P-R Int : 000 ms QRS Dur : 074 ms QT Int : 434 ms P-R-T Axes : 000 009 -85 degrees QTc Int : 484 ms Ventricular-paced rhythm with frequent Premature ventricular complexes Abnormal ECG When compared with ECG of 22-AUG-2019 13:25, Electronic ventricular pacemaker now present Confirmed by Chavez Weiss ([id number]) on 11/18/2021 1:08:21 PM Referred By: REFERRED SELF Confirmed By:Chavez Weiss
--- NOTE | 2021-11-18 15:57 | History & Physical Report ---
Date of Service November 18, 2021 Assessment & Plan (1) Acute on chronic heart failure with preserved ejection fraction (HFpEF): Plan: Usual Lasix home dosing is incorrect as patient only taking Lasix 40mg PO daily - encouraged to make sure his medications list is correct at all his appointments. Bumex 1mg IV given in ER, additional Lasix 40mg IV now. TTE from Oct 29 - moderately dilated inferior vena cava, severe pulmonary hypertension, moderate MR, moderate TR, LA moderately dilated, LCEF 50-55%; no need to repeat this Continue Lasix 40mg IV daily - pending I&Os, daily weight, etc..., likely to be an underestimate of current diuretic needs. Strict I&Os Daily weights (2) Acute respiratory failure with hypoxia: Plan: Secondary to CHF Aim O2 sats > 94% (3) Permanent atrial fibrillation: Plan: Continue anticoagulation with rivaroxaban On no specific rate controlling medications (4) Parkinson's disease: Plan: Continue Sinemet (5) Hypothyroidism: Plan: TSH 3.35 in 06/11 Continue levothyroxine 100 mcg PO daily (6) Hypertension: Plan: Continue his usual regimen with amlodipine and clonidine with Lasix as above. (7) Chronic obstructive pulmonary disease: Plan: On no maintenance inhalers for this. (8) CAD in [place] artery: Plan: Continue clopidogrel, rivaroxaban, ezetimibe, simvastatin (9) Apnea, sleep: Plan: CPAP HS Plan: VTE Prophylaxis - Dabigatran Diet - heart healthy, fluid restrict 1500ml, Low Na Disposition - admit to med/tele Admission and Anticipated Discharge Date Admission Date: Nov 17, 2021 History of Present Illness Chief Complaint: Shortness of breath Primary Care Provider: Chavez Young MD Eugenio Ramsay is an 86 year old male with known heart failure with a preserved ejection fraction who presents to the ER with shortness of breath. Two weeks ago had vomiting illness, no diarrhea, lasted for less than 24 hours, pepto-bismol helped, no known fever or chills. Since this time he has felt increasingly short of breath with associated orthopnea. He denies any fever, chills, productive cough, chest pain, PND, palpitation or claudication. Per his last cardiology note he was supposed to be 120mg PO Lasix daily however he reports only taking 40mg PO daily for many months. He had a recent echocardiogram on October 29 that was suggestive of fluid overload. In the ER CXR was concerning for interstitial pulmonary edema, creatinine at baseline. He was newly hypoxic requiring 2LPM O2 to maintain O2 sats > 94%. He was given a duoneb due to history of COPD but felt no benefit from this. He was given Bumex 1mg IV and referred to medicine for admission and ongoing management of hypoxia, CHF and shortness of breath. Allergies Allergy/AdvReac Type Severity Reaction Status Date / Time hydralazine AdvReac Severe anorexia,h/ Verified 11/18/21 11:05 a,nausea,pa lpitations Home Medications Medication Instructions Recorded Confirmed Type calcium carbonate 500 mg-vitamin 1 tab PO QDL 06/01/18 11/18/21 History D3 5 mcg (200 unit) tablet (Calcium 500 + D) finasteride 5 mg tablet 5 mg PO QAM tab 04/13/19 11/18/21 History CPAP Machine #10 ea 07/13/19 09/05/21 Rx CPAP Machine #1 ea 04/24/20 09/05/21 Rx nitroglycerin 0.4 mg sublingual 0.4 mg BUCCAL UD PRN #25 tab 01/08/21 11/18/21 Rx tablet (Nitrostat) albuterol sulfate 90 mcg/actuation 2 puff INHALATION Q6H PRN #3 04/04/21 11/18/21 Rx aerosol inhaler (ProAir HFA) inhaler allopurinol 100 mg tablet 200 mg PO DAILY #180 tab 05/28/21 11/18/21 Rx calcitriol 0.5 mcg capsule 0.5 mcg PO QAM #90 cap 05/28/21 11/18/21 Rx clopidogrel 75 mg tablet 75 mg PO QAM #90 tab 05/28/21 11/18/21 Rx ezetimibe 10 mg-simvastatin 20 mg 1 tab PO HS #90 tab 05/28/21 11/18/21 Rx tablet furosemide 40 mg tablet 120 mg PO DAILY #270 tab 05/28/21 11/18/21 Rx levothyroxine 100 mcg tablet 100 mcg PO QAM #90 tab 05/28/21 11/18/21 Rx amlodipine 10 mg tablet 10 mg PO QAM #90 tab 07/02/21 11/18/21 Rx dabigatran etexilate 75 mg capsule 75 mg PO BID #180 cap 07/02/21 11/18/21 Rx carbidopa 25 mg-levodopa 100 mg 1 tab PO TID 90 Days #270 tab 09/05/21 11/18/21 Rx tablet clonidine HCl 0.2 mg tablet 0.2 mg PO TID #540 tab 11/14/21 11/18/21 Rx Past Med/Surg History Medical History Chronic constipation Former smoker Gout History of DVT (deep vein thrombosis) HTN (hypertension) Hypothyroid Pleural effusion Subdural hematoma (2006) Surgical History H/O vasectomy History of appendectomy History of renal stent (2006) History of renal stent (2008) Hx of tonsillectomy S/P carotid endarterectomy (1994) S/P insertion of inferior vena caval filter Family History Father Diabetes Denies family history of Ovarian cancer Prostate cancer Myocardial infarction Breast cancer Lung cancer Colorectal cancer Stroke Social History Smoking Status: Former smoker Age Started Using Tobacco: 12; Age Quit Using Tobacco: 53; packs per day: 1; Cigarettes Per Day: 20; Second Hand Exposure: No; Hx Alcohol Use: Yes Alcohol type: beer Hx Substance Use: No Preferred Language: Indonesian Communication Ability: Effective Visual Impairment: No Limitations Hearing Ability: Normal Customer Advisor Required: No Beliefs That Will Affect Care: None marital status: Current Living Situation: Spouse Current Living Situation Comment: from home current occupational status: retired Other Information That Helps Us Care for You: No Feels Safe at Home: Yes Safety Concerns: Feels Safe At This Time Childhood Exposure to Second-Hand Smoke: Yes during the past year weight has: remained stable Physical Activity Frequency: Daily Physical Activity Frequency Comment: walks a mile every day in nice weather Seatbelt Use: always Assistive Devices: Glasses and Oxygen - Continuous Review of Systems Review of Systems: All systems reviewed & are unremarkable except as noted in HPI & below Physical Exam Constitutional: WD/WN, vitals as above Eyes: + anicteric sclerae; normal pupil size ENMT: external ear and nose normal, oropharynx normal Neck: trachea midline, no thyromegaly Respiratory: + retractions and + uses accessory muscles Auscultation: + crackles (bibasal); no diminished lung sounds, no rales, no rhonchi and no wheezes Cardiovascular: Rate/Rhythm: regular rate and + irregularly irregular Heart Sounds: + murmur (systolic, throughout) Extremities: normal capillary refill and + pedal edema (1+ pre-tibial b/l equal); no calf tenderness Gastrointestinal (Abdomen): normal bowel sounds, soft, nontender, no hepatosplenomegaly Musculoskeletal: no cyanosis or clubbing, extremities motor strength 5/5 Skin: no rashes, warm and dry Neurologic: moves all extremities and awake; not confused Psychiatric: A+Ox3, euthymic affect Results & Data Results & Data ([facility]) Vital Signs (Past 12 Hours) Vital Signs Temp Pulse Pulse Resp BP BP Pulse Ox 11/18/21 12:51 87 L 11/18/21 11:25 68 20 149/67 H 92 11/18/21 11:00 94 11/18/21 10:58 24 94 11/18/21 10:34 36.5 C 78 22 181/66 H 94 Laboratory Results Abnormal lab results 11/18/21 11/18/21 11/18/21 Range/Units 11:00 11:00 11:00 RBC 4.23 L (4.7-6.1) M/uL Hgb 13.8 L (14.0-18.0) g/dL Hct 40.0 L (42-52) % RDW Std Deviation 53.1 H (36.4-46.3) fL RDW Coeff of [place] 15.5 H (11.5-14.5) % MPV 10.8 H (7.4-10.4) fL Neut # (Auto) 7.55 H (1.4-6.5) K/uL [place] # (Auto) 0.98 H (0.11-0.59) K/uL Immature Gran # (Auto) 0.03 H (0.00-0.02) K/uL INR 1.2 H (0.9-1.1) APTT 38.2 H (21.0-31.0) Seconds BUN 30 H (6-23) mg/dl Creatinine 1.97 H (0.6-1.4) mg/dl Glucose 140 H (70-99(Fasting)) mg/dl Calcium 10.5 H (8.5-10.1) mg/dl B-Natriuretic Peptide (0-100) pg/ml 11/18/21 Range/Units 12:01 RBC (4.7-6.1) M/uL Hgb (14.0-18.0) g/dL Hct (42-52) % RDW Std Deviation (36.4-46.3) fL RDW Coeff of [place] (11.5-14.5) % MPV (7.4-10.4) fL Neut # (Auto) (1.4-6.5) K/uL [place] # (Auto) (0.11-0.59) K/uL Immature Gran # (Auto) (0.00-0.02) K/uL INR (0.9-1.1) APTT (21.0-31.0) Seconds BUN (6-23) mg/dl Creatinine (0.6-1.4) mg/dl Glucose (70-99(Fasting)) mg/dl Calcium (8.5-10.1) mg/dl B-Natriuretic Peptide 845 H (0-100) pg/ml Diagnostic Findings XR chest 1V portable CLINICAL HISTORY: Shortness of breath. COMPARISON STUDY: Chest CT August 22, 2019. Chest radiograph February 08, 2021. FINDINGS: Left subclavian pacemaker is in place. Moderate cardiomegaly is unchanged. There are small bilateral pleural effusions an associated bibasilar opacities. No pneumothorax. Interstitial pulmonary edema is present. IMPRESSION: Interstitial pulmonary edema with small bilateral pleural effusions and associated bibasilar opacities. Medications Administered ER Medications Given: Duoneb 3ml Bumetanide 1mg IV ECG Indication: SOB/dyspnea Rate (beats per minute): 75 Rhythm: atrial fibrillation Findings: + PVC and + paced rhythm (ventricular) Comparison ECG Date: from (Aug 22, 2019) Change: the following changes noted (Pacing rhythm now present) Code Status & VTE Plan Code Status DNR/DNI per patient wishes VTE Prophylaxis Plan VTE Prophylaxis will be ordered: Yes PG Care Time/CCT Total # of Minutes Spent Total Time Spent with Patient: Total time spent is greater than 50% in coordination of care (as documented) at patient's floor/unit and/or counseling patient: Coding Level of Care Code 31705 Initial Inpt Care Lvl 3 Diagnoses Acute on chronic heart failure with preserved ejection fraction (HFpEF) I50.33 Acute respiratory failure with hypoxia J96.01 Permanent atrial fibrillation I48.21 Parkinson's disease G20 Hypothyroidism E03.9 Hypertension I10 Chronic obstructive pulmonary disease J44.9 CAD in [place] artery I25.10 Apnea, sleep G47.33 Sleep apnea type: obstructive (1) Apnea, sleep Sleep apnea type: obstructive Qualified Code(s): G47.33 - Obstructive sleep apnea (adult) (pediatric)
[2021-11-18] MEDS ORDERED: FUROSEMIDE 40 MG/4 ML VIAL IV STA (16:05)
[2021-11-18] MEDS: cloNIDine HCL 0.1 MG TAB PO SCH ×2 (19:07→23:20)
[2021-11-18] MEDS: CARBIDOPA/LEVODOPA 25/100MG TAB PO SCH ×2 (19:07→23:20)
[2021-11-18] MEDS: EZETIMIBE/SIMVASTATIN 10/20 TAB PO SCH (20:48)
[2021-11-18] MEDS: DABIGATRAN ETEXILATE 75 MG CAP PO SCH (20:48)
[2021-11-19] MEDS: LEVOTHYROXINE SODIUM 100 MCG TABLET PO SCH (06:15)
[2021-11-19] MEDS: allopurinoL 100 MG TAB PO SCH (08:06)
[2021-11-19] MEDS: cloNIDine HCL 0.1 MG TAB PO SCH ×3 (08:07→22:23)
[2021-11-19] MEDS: CARBIDOPA/LEVODOPA 25/100MG TAB PO SCH ×3 (08:07→21:44)
[2021-11-19] MEDS: amLODIPine BESYLATE 5 MG TAB PO SCH (08:07)
[2021-11-19] MEDS: FINASTERIDE 5 MG TAB PO SCH (08:07)
[2021-11-19] MEDS: CALCITRIOL 0.25 MCG CAPSULE PO SCH (08:08)
[2021-11-19] MEDS: DABIGATRAN ETEXILATE 75 MG CAP PO SCH ×2 (08:48→21:43)
[2021-11-19] MEDS: CLOPIDOGREL BISULFATE 75 MG TAB PO SCH (08:48)
[2021-11-19 08:51] LABS: Hematocrit (blood only) 39.6 % (42-52); Hemoglobin 13.4 g/dL (14.0-18.0); Mean Corpuscular Hemoglobin 32.1 pg (25-34); Mean Corpuscular Hgb Conc 33.8 g/dL (32-36); Mean Corpuscular Volume 94.7 fL (80-100); Platelet Count 243 K/uL (130-400); RDW Coefficient of Variation 15.5 % (11.5-14.5); RDW Standard Deviation 53.5 fL (36.4-46.3); Red Blood Count 4.18 M/uL (4.7-6.1); White Blood Count 9.53 K/uL (4.8-10.8)
[2021-11-19 09:16] LABS: BUN Creatinine Ratio 16.1 (10-20); Calcium 9.2 mg/dl (8.5-10.1); Creatinine Clr Calc Pharmacy 25.7 ml/min; Est GFR (African American) 35.2 ml/min; Est GFR (Non-African American) 30.4 ml/min; Potassium 3.9 mmol/L (3.5-5.1)
[2021-11-19] MEDS ORDERED: FUROSEMIDE 40 MG/4 ML VIAL IV ONE (11:37)
[2021-11-19] MEDS: CALCIUM 600MG + VIT D 400 IU TAB PO SCH (11:53)
--- NOTE | 2021-11-19 20:49 | Hospitalist Progress Note ---
Date of Service November 19, 2021 Assessment & Plan (1) Acute on chronic heart failure with preserved ejection fraction (HFpEF): Plan: Usual Lasix home dosing is incorrect as patient only taking Lasix 40mg PO daily - encouraged to make sure his medications list is correct at all his appointments. Bumex 1mg IV given in ER, additional Lasix 40mg IV now. TTE from Oct 29 - moderately dilated inferior vena cava, severe pulmonary hypertension, moderate MR, moderate TR, LA moderately dilated, LCEF 50-55%; no need to repeat this Continue Lasix 40mg IV daily - Negative 2 liters, Strict I&Os Daily weights (2) Acute respiratory failure with hypoxia: Plan: Secondary to CHF Aim O2 sats > 94% (3) Permanent atrial fibrillation: Plan: Continue anticoagulation with rivaroxaban On no specific rate controlling medications (4) Parkinson's disease: Plan: Continue Sinemet (5) Hypothyroidism: Plan: TSH 3.35 in 06/11 Continue levothyroxine 100 mcg PO daily (6) Hypertension: Plan: Continue his usual regimen with amlodipine and clonidine with Lasix as above. (7) Chronic obstructive pulmonary disease: Plan: On no maintenance inhalers for this. (8) CAD in [place] artery: Plan: Continue clopidogrel, rivaroxaban, ezetimibe, simvastatin (9) Apnea, sleep: Plan: CPAP HS Plan: VTE Prophylaxis - Dabigatran Diet - heart healthy, fluid restrict 1500ml, Low Na Disposition - admit to med/tele Admission and Anticipated Discharge Date Admission Date: November 18, 2021 Subjective Patient reports feeling mildly better. Mainly his symptoms occurred when ambulating. Review of Systems Review of Systems: All systems reviewed & are unremarkable except as noted in HPI & below Physical Exam Physical Exam: Constitutional: WD/WN, vitals as above Eyes: + anicteric sclerae; normal pupil size ENMT: external ear and nose normal, oropharynx normal Neck: trachea midline, no thyromegaly Respiratory: + retractions and + uses accessory muscles Auscultation: + crackles (bibasal); no diminished lung sounds, no rales, no rhonchi and no wheezes Cardiovascular: Rate/Rhythm: regular rate and + irregularly irregular Heart Sounds: + murmur (systolic, throughout) Extremities: normal capillary refill and + pedal edema (1+ pre-tibial b/l equal); no calf tenderness Gastrointestinal (Abdomen): normal bowel sounds, soft, nontender, no hepatosplenomegaly Musculoskeletal: no cyanosis or clubbing, extremities motor strength 5/5 Skin: no rashes, warm and dry Neurologic: moves all extremities and awake; not confused Psychiatric: A+Ox3, euthymic affect Results & Data Results & Data ([facility]) Vital Signs (Past 12 Hours) Vital Signs Temp Pulse Pulse Resp BP Pulse Ox 11/19/21 19:18 36.6 C 66 20 165/77 H 96 11/19/21 16:17 36.8 C 78 20 129/67 95 11/19/21 15:33 60 11/19/21 13:28 62 149/61 H 11/19/21 10:48 36.7 C 59 L 18 144/64 H 95 PG Care Time/CCT Total # of Minutes Spent Total Time Spent with Patient: Total time spent is greater than 50% in coordination of care (as documented) at patient's floor/unit and/or counseling patient: Coding Level of Care Code 40100 Subseq Hosp Care Lvl 2 Diagnoses Acute on chronic heart failure with preserved ejection fraction (HFpEF) I50.33 Acute respiratory failure with hypoxia J96.01 Permanent atrial fibrillation I48.21 Parkinson's disease G20 Hypothyroidism E03.9 Hypertension I10 Chronic obstructive pulmonary disease J44.9 CAD in [place] artery I25.10 Apnea, sleep G47.33 Sleep apnea type: obstructive (1) Apnea, sleep Sleep apnea type: obstructive Qualified Code(s): G47.33 - Obstructive sleep apnea (adult) (pediatric)
[2021-11-19] MEDS: EZETIMIBE/SIMVASTATIN 10/20 TAB PO SCH (21:44)
[2021-11-20] MEDS: LEVOTHYROXINE SODIUM 100 MCG TABLET PO SCH (05:58)
[2021-11-20 07:01] LABS: Hematocrit (blood only) 38.9 % (42-52); Hemoglobin 12.8 g/dL (14.0-18.0); Mean Corpuscular Hemoglobin 31.4 pg (25-34); Mean Corpuscular Hgb Conc 32.9 g/dL (32-36); Mean Corpuscular Volume 95.3 fL (80-100); Mean Platelet Volume 10.7 fL (7.4-10.4); Platelet Count 220 K/uL (130-400); RDW Coefficient of Variation 15.3 % (11.5-14.5); RDW Standard Deviation 53.1 fL (36.4-46.3); Red Blood Count 4.08 M/uL (4.7-6.1); White Blood Count 8.73 K/uL (4.8-10.8)
[2021-11-20 07:38] LABS: BUN Creatinine Ratio 18.2 (10-20); Calcium 9.8 mg/dl (8.5-10.1); Creatinine Clr Calc Pharmacy 25.7 ml/min; Est GFR (African American) 35.2 ml/min; Est GFR (Non-African American) 30.4 ml/min; Potassium 3.7 mmol/L (3.5-5.1)
[2021-11-20] MEDS: amLODIPine BESYLATE 5 MG TAB PO SCH (07:52)
[2021-11-20] MEDS: CALCITRIOL 0.25 MCG CAPSULE PO SCH (07:52)
[2021-11-20] MEDS: cloNIDine HCL 0.1 MG TAB PO SCH ×3 (07:53→20:18)
[2021-11-20] MEDS: FINASTERIDE 5 MG TAB PO SCH (07:54)
[2021-11-20] MEDS: DABIGATRAN ETEXILATE 75 MG CAP PO SCH ×2 (07:54→20:18)
[2021-11-20] MEDS: allopurinoL 100 MG TAB PO SCH (07:55)
[2021-11-20] MEDS: CLOPIDOGREL BISULFATE 75 MG TAB PO SCH (07:55)
[2021-11-20] MEDS: CARBIDOPA/LEVODOPA 25/100MG TAB PO SCH ×3 (07:56→20:18)
--- NOTE | 2021-11-20 08:29 | Hospitalist Progress Note ---
Date of Service November 20, 2021 Assessment & Plan (1) Acute on chronic heart failure with preserved ejection fraction (HFpEF): Plan: Pre hospital home Lasix 40mg PO daily - encouraged to make sure his medications list is correct at all his appointments. Bumex 1mg IV given in ER, additional Lasix 40mg IV daily will convert to po on 11/21/21 TTE from Oct 29 - moderately dilated inferior vena cava, severe pulmonary hypertension, moderate MR, moderate TR, LA moderately dilated, LCEF 50-55%; no need to repeat this wt down 13 lbs, renal function is preserved (2) Acute respiratory failure with hypoxia: Plan: Secondary to CHF Aim O2 sats > 94% (3) Permanent atrial fibrillation: Plan: Continue anticoagulation with dabigatran On no specific rate controlling medications (4) Parkinson's disease: Plan: Continue Sinemet (5) Hypothyroidism: Plan: TSH 3.35 in 06/11 Continue levothyroxine 100 mcg PO daily (6) Hypertension: Plan: Continue his usual regimen with amlodipine and clonidine with Lasix as above. (7) Chronic obstructive pulmonary disease: Plan: On no maintenance inhalers for this. (8) CAD in [place] artery: Plan: Continue clopidogrel, dabigatran, ezetimibe, simvastatin (9) Apnea, sleep: Plan: CPAP HS Plan: VTE Prophylaxis - Dabigatran Diet - heart healthy, fluid restrict 1500ml, Low Na Admission and Anticipated Discharge Date Admission Date: November 18, 2021 Subjective Patient was having some mild complaints of constipation. He typically states that does not use home use home oxygen. Review of Systems Review of Systems: Mild distress and fatigue no headache, no visual changes no speech or swallowing issues no chest pain, pressure or palpitations Shortness of breath at rest with exertion no abdominal pain, nausea or vomiting, does complain of constipation no dysuria, hematuria or frequency no focal joint pain but does have lower extremity swelling no back pain, CVA tenderness or radicular pain no bruising, bleeding or rashes no focal signs of weakness or numbness or altered sensation no complaints of anxiety or depression.. Physical Exam Physical Exam: The patient appeared well nourished and normally developed. Vital signs as documented. Head exam is normocephalic atraumatic Neck is without JVD, thyromegaly, or carotid bruits. Lungs are clear to auscultation, no focal loss of breath sounds Cardiac exam, Rhythm is regular.. No murmurs, rubs or gallops. Abdominal exam reveals normal bowel sounds, soft non tender, no masses Extremities are nonedematous and both pedal pulses are present Neurologic exam is alert and oriented, no focal loss of strength or sensation Skin is without bruises or rashes Psychologically is without concerns for anxiety or depression.. Results & Data Results & Data ([facility]) Vital Signs (Past 12 Hours) Vital Signs Temp Pulse Pulse Resp BP Pulse Ox 11/20/21 07:09 60 11/20/21 03:30 98.2 F 57 L 20 148/70 H 96 11/19/21 23:40 98.1 F 59 L 20 122/66 96 11/19/21 22:19 60 PG Care Time/CCT Total # of Minutes Spent Total Time Spent with Patient: Total time spent is greater than 50% in coordination of care (as documented) at patient's floor/unit and/or counseling patient: Coding Level of Care Code 29714 Subseq Hosp Care Lvl 3 Diagnoses Acute on chronic heart failure with preserved ejection fraction (HFpEF) I50.33 Acute respiratory failure with hypoxia J96.01 Permanent atrial fibrillation I48.21 Parkinson's disease G20 Hypothyroidism E03.9 Hypertension I10 Chronic obstructive pulmonary disease J44.9 CAD in [place] artery I25.10 Apnea, sleep G47.33 Sleep apnea type: obstructive (1) Apnea, sleep Sleep apnea type: obstructive Qualified Code(s): G47.33 - Obstructive sleep apnea (adult) (pediatric)
[2021-11-20] MEDS: CALCIUM 600MG + VIT D 400 IU TAB PO SCH (10:49)
[2021-11-20] MEDS ORDERED: POLYETHYLENE (MIRALAX) 17 GM PACK PO ONE (16:46)
[2021-11-20] MEDS ORDERED: FUROSEMIDE 40 MG/4 ML VIAL IV ONE (16:50)
[2021-11-20] MEDS: EZETIMIBE/SIMVASTATIN 10/20 TAB PO SCH (20:18)
[2021-11-20] MEDS ORDERED: SENNOSIDES 8.8 MG/5 ML UDC PO ONE (21:00)
[2021-11-21] MEDS: LEVOTHYROXINE SODIUM 100 MCG TABLET PO SCH (06:15)
[2021-11-21] MEDS ORDERED: FUROSEMIDE 40 MG TAB PO SCH (09:00)
[2021-11-21] MEDS ORDERED: FUROSEMIDE 40 MG/4 ML VIAL IV SCH (09:00)
[2021-11-21] MEDS ORDERED: PSYLLIUM 58.6% POWDER PACKET PO SCH (09:00)
[2021-11-21] MEDS: CLOPIDOGREL BISULFATE 75 MG TAB PO SCH (09:56)
[2021-11-21] MEDS: DABIGATRAN ETEXILATE 75 MG CAP PO SCH (09:57)
[2021-11-21] MEDS: CARBIDOPA/LEVODOPA 25/100MG TAB PO SCH ×2 (09:57→13:13)
[2021-11-21] MEDS: CALCITRIOL 0.25 MCG CAPSULE PO SCH (09:58)
[2021-11-21] MEDS: amLODIPine BESYLATE 5 MG TAB PO SCH (09:58)
[2021-11-21] MEDS: allopurinoL 100 MG TAB PO SCH (09:58)
[2021-11-21] MEDS: FINASTERIDE 5 MG TAB PO SCH (09:59)
[2021-11-21] MEDS: cloNIDine HCL 0.1 MG TAB PO SCH ×2 (10:02→13:20)
--- NOTE | 2021-11-21 12:03 | XRay Report ---
XR chest 2V PA/lateral CLINICAL HISTORY: Follow-up pulmonary edema and bilateral pleural effusions. COMPARISON STUDY: 11/18/2021 TECHNIQUE: 2 views of the chest FINDINGS: Frontal and lateral radiographs of the chest demonstrate the heart to again be enlarged with permanen t cardiac pacer in place. Compared to previous study, the patient is in a more upright position with only a small right pleural effusion identified. There is no evidence for left pleural effusion. Bibas ilar atelectasis has resolved. The lungs are otherwise clear . There has been resolution of pulmonary edema. There is no acute osseous pathology. IMPRESSION: 1. Interval improvement from the previous study with resolution of pulmonary edema. 2. Only a small residual right-sided pleural effusion is present. ACT 112: Negative or not required by law. Electronically signed by: Shlomo Weston M.D. 11/21/2021 12:02 PM
[2021-11-21] MEDS ORDERED: POLYETHYLENE (MIRALAX) 17 GM PACK PO STA (12:18)
--- NOTE | 2021-11-21 12:19 | Hospitalist Progress Note ---
Date of Service November 21, 2021 Assessment & Plan (1) Acute on chronic heart failure with preserved ejection fraction (HFpEF): Plan: Pre hospital home Lasix 40mg PO daily - increased to bid at discharge. CHF resolved with IV lasix TTE from Oct 29 - moderately dilated inferior vena cava, severe pulmonary hypertension, moderate MR, moderate TR, LA moderately dilated, LCEF 50-55% (2) Acute respiratory failure with hypoxia: Plan: Secondary to CHF Aim O2 sats > 94%. Resolved. O2 weaned off (3) Permanent atrial fibrillation: Plan: Continue anticoagulation with dabigatran On no specific rate controlling medications (4) Parkinson's disease: Plan: Continue Sinemet (5) Hypothyroidism: Plan: TSH 3.35 in 06/11 Continue levothyroxine 100 mcg PO daily (6) Hypertension: Plan: controlled with amlodipine and clonidine with Lasix as above. (7) Chronic obstructive pulmonary disease: Plan: On no maintenance inhalers for this. Stable (8) CAD in [place] artery: Plan: Continue clopidogrel, dabigatran, ezetimibe, simvastatin (9) Apnea, sleep: Plan: CPAP HS Plan: VTE Prophylaxis - Dabigatran Diet - heart healthy, fluid restrict 1500ml, Low Na Dispo: home today, 11/21 Admission and Anticipated Discharge Date Admission Date: November 18, 2021 Subjective Doing weel.. CXR now clear and O2 weaned off. Home today Review of Systems Review of Systems: negative Physical Exam Physical Exam: lungs clear.. No peripheral edema Results & Data Results & Data ([facility]) Vital Signs (Past 12 Hours) Vital Signs Temp Pulse Pulse Resp BP Pulse Ox 11/21/21 11:03 94 11/21/21 11:00 36.5 C 73 16 169/68 H 95 11/21/21 07:35 36.6 C 60 16 160/65 H 92 11/21/21 07:18 61 11/21/21 04:00 36.8 C 61 18 138/68 95 Laboratory Results 11/20/21 06:47 11/20/21 06:47 PG Care Time/CCT Total # of Minutes Spent Total Time Spent: 35 Total Time Spent with Patient: Total time spent is greater than 50% in coordination of care (as documented) at patient's floor/unit and/or counseling patient: Coding Level of Care Code 42281 Subseq Hosp Care Lvl 3 Diagnoses Acute on chronic heart failure with preserved ejection fraction (HFpEF) I50.33 Acute respiratory failure with hypoxia J96.01 Permanent atrial fibrillation I48.21 Parkinson's disease G20 Hypothyroidism E03.9 Hypertension I10 Chronic obstructive pulmonary disease J44.9 CAD in [place] artery I25.10 Apnea, sleep G47.33 Sleep apnea type: obstructive (1) Apnea, sleep Sleep apnea type: obstructive Qualified Code(s): G47.33 - Obstructive sleep apnea (adult) (pediatric)
--- NOTE | 2021-11-21 12:23 | Discharge Summary ---
Date of Service November 21, 2021 Admission HPI Per Admitting Provider Eugenio Ramsay is an 86 year old male with known heart failure with a preserved ejection fraction who presents to the ER with shortness of breath. Two weeks ago had vomiting illness, no diarrhea, lasted for less than 24 hours, pepto-bismol helped, no known fever or chills. Since this time he has felt increasingly short of breath with associated orthopnea. He denies any fever, chills, productive cough, chest pain, PND, palpitation or claudication. Per his last cardiology note he was supposed to be 120mg PO Lasix daily however he reports only taking 40mg PO daily for many months. He had a recent echocardiogram on October 29 that was suggestive of fluid overload. In the ER CXR was concerning for interstitial pulmonary edema, creatinine at baseline. He was newly hypoxic requiring 2LPM O2 to maintain O2 sats > 94%. He was given a duoneb due to history of COPD but felt no benefit from this. He was given Bumex 1mg IV and referred to medicine for admission and ongoing management of hypoxia, CHF and shortness of breath. Principal Diagnosis Acute on chronic diastolic CHF, acute hypoxic respiratory failure Discharge Exam lungs clear. No rales, wheezing, ronchi. No peripheral edema Discharge Data Allergies Allergy/AdvReac Type Severity Reaction Status Date / Time hydralazine AdvReac Severe anorexia,h/ Verified 11/18/21 11:05 a,nausea,pa lpitations Consultations 11/18/21 13:32 ED Decision to Admit Stat Hospital Course (1) Acute on chronic heart failure with preserved ejection fraction (HFpEF): Pre hospital home Lasix 40mg PO daily - increased to bid at discharge. CHF resolved with IV lasix TTE from Oct 29 - moderately dilated inferior vena cava, severe pulmonary hypertension, moderate MR, moderate TR, LA moderately dilated, LCEF 50-55% (2) Acute respiratory failure with hypoxia: Secondary to CHF Aim O2 sats > 94%. Resolved. O2 weaned off (3) Permanent atrial fibrillation: Continue anticoagulation with dabigatran On no specific rate controlling medications (4) Parkinson's disease: Continue Sinemet (5) Hypothyroidism: TSH 3.35 in 06/11 Continue levothyroxine 100 mcg PO daily (6) Hypertension: controlled with amlodipine and clonidine with Lasix as above. (7) Chronic obstructive pulmonary disease: On no maintenance inhalers for this. Stable (8) CAD in [place] artery: Continue clopidogrel, dabigatran, ezetimibe, simvastatin (9) Apnea, sleep: CPAP HS VTE Prophylaxis - Dabigatran Diet - heart healthy, fluid restrict 1500ml, Low Na Dispo: home today, 3/3 Total Time Total Time Spent Total Time Spent (In Minutes): 35 minutes Discharge Plan Discharge Items Patient Disposition: Home - Self-Care Reason For Visit: ACUTE CHF Discharge Diagnosis: Acute on chronic diastolic CHF, acute hypoxic respiratory failure Condition on Discharge: Fair Activity: Resume your previous activity Non-emergency contact: Primary Care Provider Call non-emergency contact if: you have any medication questions and your symptoms worsen Follow-up/Referrals: Chavez Young MD [Primary Care Provider] - Diet: Heart Healthy Addtl Attending Provider Instructions: lasix increased to twice a day Pending Studies at Discharge: No Stand-Alone Forms: My [employer], Smoking Cessation Medications and DC Order Prescriptions: Continued albuterol sulfate [ProAir HFA] 90 mcg/actuation HFA aerosol inhaler 2 puff inhalation Q6H PRN (Reason: shortness of breath or wheezing) Qty: 3 RF: 1 dabigatran etexilate 75 mg capsule 75 mg PO BID Qty: 180 RF: 3 amlodipine 10 mg tablet 10 mg PO QAM Qty: 90 RF: 3 clonidine HCl 0.2 mg tablet 0.2 mg PO TID Qty: 540 RF: 3 (DME) CPAP Machine Misc See Rx Instructions .ROUTE .MEDSUPPLY Qty: 1 RF: 0 nitroglycerin [Nitrostat] 0.4 mg tablet, sublingual 0.4 mg buccal UD PRN (Reason: Chest Pain) Qty: 25 RF: 5 carbidopa-levodopa 25-100 mg tablet 1 tab PO TID 90 Days Qty: 270 RF: 3 finasteride 5 mg tablet 5 mg PO QAM RF: 0 (DME) CPAP Machine Misc See Dose Instructions .ROUTE .MEDSUPPLY Qty: 10 RF: 0 allopurinol 100 mg tablet 200 mg PO DAILY Qty: 180 RF: 3 calcitriol 0.5 mcg capsule 0.5 mcg PO QAM Qty: 90 RF: 3 clopidogrel 75 mg tablet 75 mg PO QAM Qty: 90 RF: 3 ezetimibe-simvastatin 10-20 mg tablet 1 tab PO HS Qty: 90 RF: 3 levothyroxine 100 mcg tablet 100 mcg PO QAM Qty: 90 RF: 3 calcium carbonate-vitamin D3 [Calcium 500 + D] 500 mg(1,250mg) -200 unit Tablet 1 tab PO QDL RF: 0 Changed furosemide 40 mg tablet 40 mg PO BID Qty: 60 RF: 0 Discharge Orders: Discharge Order (Routine); Ordered 11/21/21 Ordered By: Hao Zimmerman Admission Data Admit Date/Time: 11/18/21 15:49 Attending Provider: Hao Zimmerman Admit Provider: Uriah Encarnacion Primary Care Provider: Chavez Young Other Providers: Uriah Encarnacion Coding Level of Care Code D/C DAY MANAGEMENT >30 MINS Diagnoses Acute on chronic heart failure with preserved ejection fraction (HFpEF) I50.33 Acute respiratory failure with hypoxia J96.01 Permanent atrial fibrillation I48.21 Parkinson's disease G20 Hypothyroidism E03.9 Hypertension I10 Chronic obstructive pulmonary disease J44.9 CAD in [place] artery I25.10 Apnea, sleep G47.33 Sleep apnea type: obstructive
[2021-11-21] MEDS: CALCIUM 600MG + VIT D 400 IU TAB PO SCH (13:13)
== END 2021-11-21 14:30 | disposition home or self-care (01) | DRG 291 ==
LOC: ED 10:31 → EDINP 15:49 → SUATTDRO 15:49 → 2N 17:30

== ENCOUNTER 2022-01-09 06:28 | Inpatient (IN) ==
--- NOTE | 2022-01-09 06:53 | Emergency Department Note ---
Impression & Plan Acute dyspnea ADMIT ED Provider Note HPI: The patient is an 86-year-old gentleman with history of heart failure with preserved ejection fraction, pacemaker, coronary artery disease, chronic kidney disease, presents the emergency department with a chief complaint of shortness of breath for the past week. On arrival here to the ED patient arrives via private vehicle, is saturating well on room air with some mild increased work of breathing. He is alert, he is otherwise in no acute distress on my initial evaluation. He denies any chest pain. ROS: -Pulmonary: Shortness of breath. *10 point review systems was conducted and is otherwise negative unless stated a ela *Outpatient medications and allergy history reviewed PE: General: Alert, NAD HEENT: Normocephalic, atraumatic Eyes: Extraocular eye movement is intact, no scleral erythema Pulmonary: Diminished bilaterally without any crackles or wheezes Cardio: Regular rate and rhythm GI: Abdomen is soft, nontender : No suprapubic tenderness MSK: No evidence of trauma or malformation of the extremities, no edema Skin: No evidence of rash Neuro: Alert, no focal deficits Psychiatric: Cooperative cell preparer: - An order was placed for continuous cardiac monitoring - Patient was noted to be in paced rhythm with rate of 60 EKG: Rate: 61 Rhythm: Ventricular paced rhythm Intervals: QRS 134 ms, QTC [address] changes: No ST elevation Time: 0658 Medical Decision Making: Patient presents with shortness of breath for the past week. He does have a history of heart failure. Chest x-ray shows evidence of pulmonary edema. Patient was given IV Lasix in the ED. He did have some increased work of breathing at times in the ED and had an episode of hypoxia at 87% with a good waveform, he was placed on 2 L nasal cannula oxygen with good improvement. Lab work shows evidence of a normal troponin x1, EKG shows a paced rhythm without ischemic changes, patient denies any chest pain. Patient was given a dose of IV Lasix, he was also given a DuoNeb breathing treatment and IV Solu-Med rol given his history of COPD and on my reassessment he does exhibit some mild expiratory wheezing. His venous blood gas shows a normal pH, I am favoring fluid overload as a source of his shortness of breath as opposed to COPD at this time. Given the patient's new oxygen requirement, I did consult the [facility] provider group hospitalist service and the patient was admitted in stable condition for further care. Critical care time: 35 minutes -Stabilization of hypoxia with oxygen saturations less than 90% on room air requiring supplemental oxygen for stabilization, time spent to the bedside, interpretation of diagnostic studies, arrangement of admission Diagnosis: 1. Acute on chronic CHF exacerbation with hypoxia 2. Elevated BNP 3. Acute dyspnea 4. Chronic kidney disease Disposition: Admission Jignesh Isaac DO Emergency Medicine Past Med/Surg History Medical History Chronic constipation Former smoker Gout History of DVT (deep vein thrombosis) HTN (hypertension) Hypothyroid Pleural effusion Subdural hematoma (2006) Surgical History H/O vasectomy History of appendectomy History of renal stent (2006) History of renal stent (2008) Hx of tonsillectomy S/P carotid endarterectomy (1994) S/P insertion of inferior vena caval filter Family History Father Diabetes Denies family history of Ovarian cancer Prostate cancer Myocardial infarction Breast cancer Lung cancer Colorectal cancer Stroke Social History Smoking Status: Never smoker Age Started Using Tobacco: 12; Age Quit Using Tobacco: 53; packs per day: 1; Cigarettes Per Day: 20; Second Hand Exposure: No; Hx Alcohol Use: Yes Alcohol type: beer Hx Substance Use: No Preferred Language: Portuguese Communication Ability: Effective Visual Impairment: No Limitations Hearing Ability: Normal Child Welfare Manager Required: No Beliefs That Will Affect Care: None marital status: Current Living Situation: Spouse Current Living Situation Comment: from home current occupational status: retired Feels Safe at Home: Yes Childhood Exposure to Second-Hand Smoke: Yes during the past year weight has: remained stable Physical Activity Frequency: Daily Physical Activity Frequency Comment: walks a mile every day in nice weather Seatbelt Use: always Assistive Devices: Oxygen - Continuous and Walker Allergies Allergies Allergy/AdvReac Type Severity Reaction Status Date / Time hydralazine AdvReac Severe anorexia,h/ Verified 01/09/22 08:09 a,nausea,pa lpitations Home Meds Home Medications Medication Instructions Recorded Confirmed calcium carbonate 500 mg-vitamin 1 tab PO QDL 06/01/18 01/09/22 D3 5 mcg (200 unit) tablet (Calcium 500 + D) allopurinol 100 mg tablet 200 mg PO QAM 01/09/22 01/09/22 calcitriol 0.5 mcg capsule 0.5 mcg PO QAM 01/09/22 01/09/22 furosemide 40 mg tablet 40 mg PO QAM 01/09/22 01/09/22 Previous Rx's Medication Instructions Recorded CPAP Machine #10 ea 07/13/19 CPAP Machine #1 ea 04/24/20 nitroglycerin 0.4 mg sublingual 0.4 mg BUCCAL UD PRN #25 tab 01/08/21 tablet (Nitrostat) albuterol sulfate 90 mcg/actuation 2 puff INHALATION Q6H PRN #3 04/04/21 aerosol inhaler (ProAir HFA) inhaler clopidogrel 75 mg tablet 75 mg PO QAM #90 tab 05/28/21 ezetimibe 10 mg-simvastatin 20 mg 1 tab PO HS #90 tab 05/28/21 tablet levothyroxine 100 mcg tablet 100 mcg PO QAM #90 tab 05/28/21 amlodipine 10 mg tablet 10 mg PO QAM #90 tab 07/02/21 dabigatran etexilate 75 mg capsule 75 mg PO BID #180 cap 07/02/21 carbidopa 25 mg-levodopa 100 mg 1 tab PO TID 90 Days #270 tab 09/05/21 tablet clonidine HCl 0.2 mg tablet 0.2 mg PO TID #540 tab 11/14/21 Results & Data (ED) Vital Signs Vital Signs - 24 hr 01/09/22 06:28 01/09/22 06:34 01/09/22 06:45 Temperature 36.8 C Temperature Source Temporal Artery Scan Pulse Rate 77 60 Pulse Rate [Apical] 97 H Respiratory Rate 20 24 21 Blood Pressure 155/69 H Blood Pressure [Left Arm] 140/68 Blood Pressure Mean 97 Blood Pressure Mean [Left Arm] 92 Blood Pressure Position Sitting Pulse Oximetry 97 93 97 Oxygen Delivery Method Room Air Room Air Room Air Oxygen Flow Rate Sepsis Recent Fever Within 48 Hours No Sepsis New/Unexplained Change in Mental Status N/A Sepsis Action Taken by Nursing No Action Required 01/09/22 08:32 01/09/22 08:40 01/09/22 10:00 Temperature Temperature Source Pulse Rate Pulse Rate [Apical] 60 64 Respiratory Rate 16 16 Blood Pressure Blood Pressure [Left Arm] 144/62 H 142/78 H Blood Pressure Mean Blood Pressure Mean [Left Arm] 89 99 Blood Pressure Position Pulse Oximetry 95 87 L 94 Oxygen Delivery Method Nasal Cannula Room Air Nasal Cannula Oxygen Flow Rate 2 2 Sepsis Recent Fever Within 48 Hours Sepsis New/Unexplained Change in Mental Status Sepsis Action Taken by Nursing Laboratory Data Result diagrams: 01/09/22 07:00 01/09/22 08:30 Lab Results 01/09/22 01/09/22 01/09/22 Range/Units 07:00 07:00 07:00 WBC 8.03 (4.8-10.8) K/uL RBC 4.20 L (4.7-6.1) M/uL Hgb 13.3 L (14.0-18.0) g/dL Hct 40.6 L (42-52) % MCV 96.7 (80-100) fL MCH 31.7 (25-34) pg MCHC 32.8 (32-36) g/dL RDW Std Deviation 54.0 H (36.4-46.3) fL RDW Coeff of [place] 15.3 H (11.5-14.5) % Plt Count 242 (130-400) K/uL MPV 11.4 H (7.4-10.4) fL Immature Gran % (Auto) 0.2 % Neut % (Auto) 78.4 % Lymph % (Auto) 10.2 % [place] % (Auto) 9.6 % Eos % (Auto) 1.4 % Baso % (Auto) 0.2 % Neut # (Auto) 6.29 (1.4-6.5) K/uL Lymph # (Auto) 0.82 L (1.2-3.4) K/uL [place] # (Auto) 0.77 H (0.11-0.59) K/uL Eos # (Auto) 0.11 (0-0.5) K/uL Baso # (Auto) 0.02 (0-0.2) K/uL Immature Gran # (Auto) 0.02 (0.00-0.02) K/uL PT Cancelled INR Cancelled APTT Cancelled PTT Ratio Cancelled VBG pH (7.36-7.41) VBG pCO2 (38-50) mmHg VBG pO2 mmHg VBG HCO3 mmol/L VBG O2 Saturation % VBG Base Excess mEq/L Barometric Pressure mm/Hg Sodium (136-145) mmol/L Potassium (3.5-5.1) mmol/L Chloride (98-107) mmol/L Carbon Dioxide (21-32) mmol/L Anion Gap (3-11) BUN (6-23) mg/dl Creatinine (0.6-1.4) mg/dl Est Cr Clr Drug Dosing ml/min Est GFR ( Amer) ml/min Est GFR (Non-Af Amer) ml/min BUN/Creatinine Ratio (10-20) Glucose (70-99(Fasting)) mg/dl Calcium (8.5-10.1) mg/dl Total Bilirubin (0.2-1.0) mg/dl AST (13-39) U/L ALT (7-52) U/L Alkaline Phosphatase (34-104) U/L Troponin I High Sens 13.9 (0-20) pg/ml B-Natriuretic Peptide (0-100) pg/ml Total Protein (6.0-8.3) gm/dl Albumin (3.4-5.0) gm/dl Globulin (2.5-4.0) gm/dl Albumin/Globulin Ratio (0.9-2) Urine Color Urine Appearance (Clear) Urine pH (4.5-7.5) Ur Specific [place] (1.000-1.030) Urine Protein (Negative) Urine Glucose (UA) (Negative) Urine Ketones (Negative) Urine Blood (Negative) Urine Nitrite (Negative) Urine Bilirubin (Negative) Urine Urobilinogen (Negative) Ur Leukocyte Esterase (Negative) 01/09/22 01/09/22 01/09/22 Range/Units 07:00 07:00 08:30 WBC (4.8-10.8) K/uL RBC (4.7-6.1) M/uL Hgb (14.0-18.0) g/dL Hct (42-52) % MCV (80-100) fL MCH (25-34) pg MCHC (32-36) g/dL RDW Std Deviation (36.4-46.3) fL RDW Coeff of [place] (11.5-14.5) % Plt Count (130-400) K/uL MPV (7.4-10.4) fL Immature Gran % (Auto) % Neut % (Auto) % Lymph % (Auto) % [place] % (Auto) % Eos % (Auto) % Baso % (Auto) % Neut # (Auto) (1.4-6.5) K/uL Lymph # (Auto) (1.2-3.4) K/uL [place] # (Auto) (0.11-0.59) K/uL Eos # (Auto) (0-0.5) K/uL Baso # (Auto) (0-0.2) K/uL Immature Gran # (Auto) (0.00-0.02) K/uL PT INR APTT PTT Ratio VBG pH 7.46 H (7.36-7.41) VBG pCO2 40 (38-50) mmHg VBG pO2 34 mmHg VBG HCO3 27 mmol/L VBG O2 Saturation 66.4 % VBG Base Excess 3.3 mEq/L Barometric Pressure 739.3 mm/Hg Sodium 139 (136-145) mmol/L Potassium 3.5 (3.5-5.1) mmol/L Chloride 104 (98-107) mmol/L Carbon Dioxide 26 (21-32) mmol/L Anion Gap 9 (3-11) BUN 32 H (6-23) mg/dl Creatinine 2.08 H (0.6-1.4) mg/dl Est Cr Clr Drug Dosing 23.0 ml/min Est GFR ( Amer) 32.0 ml/min Est GFR (Non-Af Amer) 27.6 ml/min BUN/Creatinine Ratio 15.4 (10-20) Glucose 223 H (70-99(Fasting)) mg/dl Calcium 9.5 (8.5-10.1) mg/dl Total Bilirubin 0.7 (0.2-1.0) mg/dl AST 18 (13-39) U/L ALT 3 L (7-52) U/L Alkaline Phosphatase 47 (34-104) U/L Troponin I High Sens (0-20) pg/ml B-Natriuretic Peptide (0-100) pg/ml Total Protein 6.9 (6.0-8.3) gm/dl Albumin 4.2 (3.4-5.0) gm/dl Globulin 2.7 (2.5-4.0) gm/dl Albumin/Globulin Ratio 1.6 (0.9-2) Urine Color Urine Appearance (Clear) Urine pH (4.5-7.5) Ur Specific [place] (1.000-1.030) Urine Protein (Negative) Urine Glucose (UA) (Negative) Urine Ketones (Negative) Urine Blood (Negative) Urine Nitrite (Negative) Urine Bilirubin (Negative) Urine Urobilinogen (Negative) Ur Leukocyte Esterase (Negative) 01/09/22 01/09/22 01/09/22 Range/Units 08:30 08:41 08:41 WBC (4.8-10.8) K/uL RBC (4.7-6.1) M/uL Hgb (14.0-18.0) g/dL Hct (42-52) % MCV (80-100) fL MCH (25-34) pg MCHC (32-36) g/dL RDW Std Deviation (36.4-46.3) fL RDW Coeff of [place] (11.5-14.5) % Plt Count (130-400) K/uL MPV (7.4-10.4) fL Immature Gran % (Auto) % Neut % (Auto) % Lymph % (Auto) % [place] % (Auto) % Eos % (Auto) % Baso % (Auto) % Neut # (Auto) (1.4-6.5) K/uL Lymph # (Auto) (1.2-3.4) K/uL [place] # (Auto) (0.11-0.59) K/uL Eos # (Auto) (0-0.5) K/uL Baso # (Auto) (0-0.2) K/uL Immature Gran # (Auto) (0.00-0.02) K/uL PT INR APTT PTT Ratio VBG pH (7.36-7.41) VBG pCO2 (38-50) mmHg VBG pO2 mmHg VBG HCO3 mmol/L VBG O2 Saturation % VBG Base Excess mEq/L Barometric Pressure mm/Hg Sodium (136-145) mmol/L Potassium (3.5-5.1) mmol/L Chloride (98-107) mmol/L Carbon Dioxide (21-32) mmol/L Anion Gap (3-11) BUN (6-23) mg/dl Creatinine (0.6-1.4) mg/dl Est Cr Clr Drug Dosing ml/min Est GFR ( Amer) ml/min Est GFR (Non-Af Amer) ml/min BUN/Creatinine Ratio (10-20) Glucose (70-99(Fasting)) mg/dl Calcium (8.5-10.1) mg/dl Total Bilirubin (0.2-1.0) mg/dl AST (13-39) U/L ALT (7-52) U/L Alkaline Phosphatase (34-104) U/L Troponin I High Sens 14.8 (0-20) pg/ml B-Natriuretic Peptide 880 H (0-100) pg/ml Total Protein (6.0-8.3) gm/dl Albumin (3.4-5.0) gm/dl Globulin (2.5-4.0) gm/dl Albumin/Globulin Ratio (0.9-2) Urine Color Yellow Urine Appearance Clear (Clear) Urine pH 7.0 (4.5-7.5) Ur Specific [place] 1.009 (1.000-1.030) Urine Protein Negative (Negative) Urine Glucose (UA) Negative (Negative) Urine Ketones Negative (Negative) Urine Blood Negative (Negative) Urine Nitrite Negative (Negative) Urine Bilirubin Negative (Negative) Urine Urobilinogen Negative (Negative) Ur Leukocyte Esterase Negative (Negative) 01/09/22 Range/Units 08:41 WBC (4.8-10.8) K/uL RBC (4.7-6.1) M/uL Hgb (14.0-18.0) g/dL Hct (42-52) % MCV (80-100) fL MCH (25-34) pg MCHC (32-36) g/dL RDW Std Deviation (36.4-46.3) fL RDW Coeff of [place] (11.5-14.5) % Plt Count (130-400) K/uL MPV (7.4-10.4) fL Immature Gran % (Auto) % Neut % (Auto) % Lymph % (Auto) % [place] % (Auto) % Eos % (Auto) % Baso % (Auto) % Neut # (Auto) (1.4-6.5) K/uL Lymph # (Auto) (1.2-3.4) K/uL [place] # (Auto) (0.11-0.59) K/uL Eos # (Auto) (0-0.5) K/uL Baso # (Auto) (0-0.2) K/uL Immature Gran # (Auto) (0.00-0.02) K/uL PT 13.0 H INR 1.2 H APTT 32.1 H PTT Ratio 1.2 VBG pH (7.36-7.41) VBG pCO2 (38-50) mmHg VBG pO2 mmHg VBG HCO3 mmol/L VBG O2 Saturation % VBG Base Excess mEq/L Barometric Pressure mm/Hg Sodium (136-145) mmol/L Potassium (3.5-5.1) mmol/L Chloride (98-107) mmol/L Carbon Dioxide (21-32) mmol/L Anion Gap (3-11) BUN (6-23) mg/dl Creatinine (0.6-1.4) mg/dl Est Cr Clr Drug Dosing ml/min Est GFR ( Amer) ml/min Est GFR (Non-Af Amer) ml/min BUN/Creatinine Ratio (10-20) Glucose (70-99(Fasting)) mg/dl Calcium (8.5-10.1) mg/dl Total Bilirubin (0.2-1.0) mg/dl AST (13-39) U/L ALT (7-52) U/L Alkaline Phosphatase (34-104) U/L Troponin I High Sens (0-20) pg/ml B-Natriuretic Peptide (0-100) pg/ml Total Protein (6.0-8.3) gm/dl Albumin (3.4-5.0) gm/dl Globulin (2.5-4.0) gm/dl Albumin/Globulin Ratio (0.9-2) Urine Color Urine Appearance (Clear) Urine pH (4.5-7.5) Ur Specific [place] (1.000-1.030) Urine Protein (Negative) Urine Glucose (UA) (Negative) Urine Ketones (Negative) Urine Blood (Negative) Urine Nitrite (Negative) Urine Bilirubin (Negative) Urine Urobilinogen (Negative) Ur Leukocyte Esterase (Negative) Administered Medications Discontinued Medications Albuterol (Albut/Ipratrop 3mg/0.5mg Neb 3 Ml Vial) 3 ml NEB NOW STA; Protocol Stop: 01/09/22 09:28 Last Admin: 01/09/22 09:35 Dose: 3 ml Documented by: [id number] Furosemide (Furosemide 40 Mg/4 Ml Vial) 40 mg IV ONE ONE Stop: 01/09/22 07:09 Last Admin: 01/09/22 07:17 Dose: 40 mg Documented by: [id number] Methylprednisolone (Methylprednisolone 125 Mg/2 Ml Vial) 125 mg IV NOW STA Stop: 01/09/22 09:28 Last Admin: 01/09/22 09:35 Dose: 125 mg Documented by: [id number] Imaging Data Radiologist's Impression: Chest X-Ray 01/09/22 06:45 XR chest 1V portable HISTORY: 86 years-old Male Dyspnea acute shortness of breath COMPARISON: Chest radiographs 11/21/2021 TECHNIQUE: Portable AP view of the chest FINDINGS: Cardiac silhouette is enlarged. Atherosclerosis of the aorta. Left subclavian single lead pacer. No pneumothorax. The inferior costophrenic angles are partially excluded from the [id number]. Small pleural effusions with progressive bibasilar consolidation. Pulmonary vascular congestion. Degenerative changes of the shoulders and spine. IMPRESSION: 1. Cardiomegaly with pulmonary vascular congestion. 2. Small pleural effusions with bibasilar consolidation. ACT 112: Negative or not required by law. The above report was generated using voice recognition software. It may contain grammatical, syntax or spelling errors. Electronically signed by: Irvin Talley M.D. 01/09/2022 6:56 AM Discharge Plan Visit Data Chief Complaint: Respiratory Problems Stated Complaint: FLUID IN LUNGS ED Provider: Jignesh Isaac Discharge Problem: Acute dyspnea Forms Stand Alone Forms: My [facility] [employer] Prescriptions Prescriptions: No Action albuterol sulfate [ProAir HFA] 90 mcg/actuation HFA aerosol inhaler 2 puff inhalation Q6H PRN (Reason: shortness of breath or wheezing) Qty: 3 RF: 1 dabigatran etexilate 75 mg capsule 75 mg PO BID Qty: 180 RF: 3 amlodipine 10 mg tablet 10 mg PO QAM Qty: 90 RF: 3 clonidine HCl 0.2 mg tablet 0.2 mg PO TID Qty: 540 RF: 3 (DME) CPAP Machine Misc See Rx Instructions .ROUTE .MEDSUPPLY Qty: 1 RF: 0 nitroglycerin [Nitrostat] 0.4 mg tablet, sublingual 0.4 mg buccal UD PRN (Reason: Chest Pain) Qty: 25 RF: 5 carbidopa-levodopa 25-100 mg tablet 1 tab PO TID 90 Days Qty: 270 RF: 3 (DME) CPAP Machine Misc See Dose Instructions .ROUTE .MEDSUPPLY Qty: 10 RF: 0 clopidogrel 75 mg tablet 75 mg PO QAM Qty: 90 RF: 3 ezetimibe-simvastatin 10-20 mg tablet 1 tab PO HS Qty: 90 RF: 3 levothyroxine 100 mcg tablet 100 mcg PO QAM Qty: 90 RF: 3 calcium carbonate-vitamin D3 [Calcium 500 + D] 500 mg(1,250mg) -200 unit Tablet 1 tab PO QDL RF: 0 calcitriol 0.5 mcg capsule 0.5 mcg PO QAM RF: 0 furosemide 40 mg tablet 40 mg PO QAM RF: 0 allopurinol 100 mg tablet 200 mg PO QAM RF: 0 Referrals Referrals: Chavez Young MD [Primary Care Provider] -
--- NOTE | 2022-01-09 06:57 | XRay Report ---
XR chest 1V portable HISTORY: 86 years-old Male Dyspnea acute shortness of breath COMPARISON: Chest radiographs 11/21/2021 TECHNIQUE: Portable AP view of the chest FINDINGS: Cardiac silhouette is enlarged. Atherosclerosis of the aorta. Left subclavian single lead pacer. No p neumothorax. The inferior costophrenic angles are partially excluded from the [id number]. Small pl eural effusions with progressive bibasilar consolidation. Pulmonary vascular congestion. Degenerative changes of the shoulders and spine. IMPRESSION: 1. Cardiomegaly with pulmonary vascular congestion. 2. Small pleural effusions with bibasilar consolidation. ACT 112: Negative or not required by law. The above report was generated using voice recognition software. It may contain grammatical, syntax o r spelling errors. Electronically signed by: Irvin Talley M.D. 01/09/2022 6:56 AM
[2022-01-09] MEDS ORDERED: FUROSEMIDE 40 MG/4 ML VIAL IV ONE (07:08)
[2022-01-09 07:33] LABS: Base Excess VBG 3.3 mEq/L; Oxygen Saturation VBG 66.4 %; pH VBG 7.46 (7.36-7.41)
[2022-01-09 07:38] LABS: Basophils # (auto) 0.02 K/uL (0-0.2); Basophils % (auto) 0.2 %; Eosinophils # (auto) 0.11 K/uL (0-0.5); Eosinophils % (auto) 1.4 %; Hematocrit (blood only) 40.6 % (42-52); Hemoglobin 13.3 g/dL (14.0-18.0); Immature Granulocytes # (auto) 0.02 K/uL (0.00-0.02); Immature Granulocytes % (auto) 0.2 %; Lymphocytes # (auto) 0.82 K/uL (1.2-3.4); Lymphocytes % (auto) 10.2 %; Mean Corpuscular Hemoglobin 31.7 pg (25-34); Mean Corpuscular Hgb Conc 32.8 g/dL (32-36); Mean Corpuscular Volume 96.7 fL (80-100); Mean Platelet Volume 11.4 fL (7.4-10.4); Monocytes # (auto) 0.77 K/uL (0.11-0.59); Monocytes % (auto) 9.6 %; Neutrophils # (auto) 6.29 K/uL (1.4-6.5); Neutrophils % (auto) 78.4 %; Platelet Count 242 K/uL (130-400); RDW Coefficient of Variation 15.3 % (11.5-14.5); White Blood Count 8.03 K/uL (4.8-10.8)
[2022-01-09 08:14] LABS: Albumin Globulin Ratio 1.6 (0.9-2); Albumin Level 4.2 gm/dl (3.4-5.0); BUN Creatinine Ratio 15.4 (10-20); Bilirubin,Total 0.7 mg/dl (0.2-1.0); Calcium 9.5 mg/dl (8.5-10.1); Est GFR (Non-African American) 27.6 ml/min; Globulin 2.7 gm/dl (2.5-4.0); Total Protein 6.9 gm/dl (6.0-8.3)
[2022-01-09 08:53] LABS: Appearance Urine Clear (Clear); Bilirubin Urine Negative (Negative); Blood Urine Negative (Negative); Color Urine Yellow; Glucose Urine UA Negative (Negative); Ketones Urine Negative (Negative); Leukocyte Esterase Urine Negative (Negative); Nitrite Urine Negative (Negative); Protein Urine Negative (Negative); Specific Gravity Urine 1.009 (1.000-1.030); Urobilinogen Urine Negative (Negative)
[2022-01-09 09:11] LABS: Potassium 3.5 mmol/L (3.5-5.1)
[2022-01-09 09:12] LABS: INR 1.2 (0.9-1.1); Partial Thromboplastin Ratio 1.2; Partial Thromboplastin Time 32.1 Seconds (21.0-31.0)
[2022-01-09] MEDS ORDERED: methylPREDNISolone 125 MG/2 ML VIAL IV STA (09:27)
[2022-01-09] MEDS ORDERED: ALBUT/IPRATROP 3MG/0.5MG NEB 3 ML VIAL NEB STA (09:27)
--- NOTE | 2022-01-09 10:10 | History & Physical Report ---
Date of Service January 09, 2022 Assessment & Plan (1) Acute exacerbation of CHF (congestive heart failure): Plan: Acute on chronic HFpEF exacerbation- related to medical non-compliance - As per HPI patient self adjusted his oral diuretic therapy resulting in increase in fluid retention - He has also not been using his CPAP which is likely exacerbating his dysnpea with Phtn - He was given 40mg IV lasix with minimal to no response by EMD- will give 1mg BUMEX now - track his NATHAN this afternoon to redose- goal diuresing would be 750ml-1L negative for 24 hour - Continue amlodipine - Refer to [facility] HF program to better assist with his managment and follow up- appreciate assistance- may benefit from medication optimization with reduction other agents if able (2) Dyslipidemia: Plan: Continue ezetimibe and Simvastatin (3) Permanent atrial fibrillation: Plan: With single RV lead chamber pacemaker- placed for dyscncrhony - Has not had anginal complaints since placement per cardiology review - Low rate 60 (4) Pacemaker: Plan: As above (5) Hypertension: Plan: As above - Continue amlodipine and Clonidine (6) Chronic obstructive pulmonary disease: Plan: No PFTs available for review - He was previously on spiriva but has been discontinued - continue with DANN prn and DANN neb prn - He endorses that he rarely needs his DANN inhaler but did increase use since feeling dyspneic - he is not hypercarbic on VBG and without wheezing on exam- no further steroid indicaiton and do not feel his dyspnea is related to his COPD at ths time (7) Hypothyroidism: Plan: Continue synthroid (8) PAD (peripheral artery disease): Plan: with history of stents to periphery as well as renal artery and history of CEA- - continue lipid management - continue Plavix - Renal stents x3 (9) Apnea, sleep: Plan: CPAP 11CM H20- continue use while in house and re-educate on use at home (10) CAD in [place] artery: Plan: Presumed CAD- had lexiscan in 2020 without ischemia noted - Continue as above (11) Chronic kidney disease, stage 3 (moderate): Plan: CKD III with HTN and RAFI requiring stenting as above - has been stable while on his high dose of diuretics - continue to follow - avoid further nephrotoxic medications - diurese until euvolemia to mild hypovolemia History of Present Illness Primary Care Provider: Chavez Young MD 86 YOM with medical history of: Renal artery stent (2006) secondary to stenosis, subdural hematoma in the setting of elevated INR, permanent afib with single lead pacemaker (2020), CAD, HFpEF, CKD IIIb, exertional angina, CEA (1994), HLD, Hypothyroidism, IVC filter, COPD, pulmonary htn, DMII. Patient comes to the EMD today for complaints of increase in dyspnea and lower extremity swelling that has been ongoing for the past 5 days. He noticed his ankles swelling more this morning. The patient states that he was taking his Lasix as 80mg PO BID that he was discharged on following last admission, but decreased his dose on Thursday back to 40mg daily. The patient endorses 2 pound weight gain since the beginning of the week. He has also not been wearing his CPAP at night because of his biopsy site on the top of his head. In the EMD the patient had routine labs done to include HScTNI, BNP, VBG, CXR and ECG. He was not hypercarbic, BNP is elevated, HScTNI was negative. CXR was most consistent with pulmonary edema. He was given 40mg IV lasix by EMD at 0730 and has yet to void. He was also given 125mg Solumederol and a nebulizer treatment. Patient will be admitted for acute heart failure exacerbation likely in the setting of medication non-adherence/confusion. Will give 1mg BUMEX IV now and continue to follow his diuresing tonight to re-dose. Will consult the HF program. COVID test on admission is: NEGATIVE Allergies Allergy/AdvReac Type Severity Reaction Status Date / Time hydralazine AdvReac Severe anorexia,h/ Verified 01/09/22 08:09 a,nausea,pa lpitations Home Medications Medication Instructions Recorded Confirmed Type calcium carbonate 500 mg-vitamin 1 tab PO QDL 06/01/18 01/09/22 History D3 5 mcg (200 unit) tablet (Calcium 500 + D) CPAP Machine #10 ea 07/13/19 12/03/21 Rx CPAP Machine #1 ea 04/24/20 09/05/21 Rx nitroglycerin 0.4 mg sublingual 0.4 mg BUCCAL UD PRN #25 tab 01/08/21 01/09/22 Rx tablet (Nitrostat) albuterol sulfate 90 mcg/actuation 2 puff INHALATION Q6H PRN #3 04/04/21 01/09/22 Rx aerosol inhaler (ProAir HFA) inhaler clopidogrel 75 mg tablet 75 mg PO QAM #90 tab 05/28/21 01/09/22 Rx ezetimibe 10 mg-simvastatin 20 mg 1 tab PO HS #90 tab 05/28/21 01/09/22 Rx tablet levothyroxine 100 mcg tablet 100 mcg PO QAM #90 tab 05/28/21 01/09/22 Rx amlodipine 10 mg tablet 10 mg PO QAM #90 tab 07/02/21 01/09/22 Rx dabigatran etexilate 75 mg capsule 75 mg PO BID #180 cap 07/02/21 01/09/22 Rx carbidopa 25 mg-levodopa 100 mg 1 tab PO TID 90 Days #270 tab 09/05/21 01/09/22 Rx tablet clonidine HCl 0.2 mg tablet 0.2 mg PO TID #540 tab 11/14/21 01/09/22 Rx allopurinol 100 mg tablet 200 mg PO QAM 01/09/22 01/09/22 History calcitriol 0.5 mcg capsule 0.5 mcg PO QAM 01/09/22 01/09/22 History furosemide 40 mg tablet 40 mg PO QAM 01/09/22 01/09/22 History Past Med/Surg History Medical History (Updated 01/09/22 @ 10:41 by KEKE Pena) Anticoagulant long-term use Carotid artery stenosis Chronic constipation Chronic kidney disease, stage 3 (moderate) Dyslipidemia Exertional angina Former smoker GERD (gastroesophageal reflux disease) Gout History of DVT (deep vein thrombosis) HTN (hypertension) Hypothyroid Pacemaker (01/2021) Parkinson's disease Permanent atrial fibrillation Pleural effusion Subdural hematoma (2006) Surgical History H/O vasectomy History of appendectomy History of renal stent (2006) Right History of renal stent (2008) Left Hx of tonsillectomy S/P carotid endarterectomy (1994) S/P insertion of inferior vena caval filter Family History Father Diabetes Denies family history of Ovarian cancer Prostate cancer Myocardial infarction Breast cancer Lung cancer Colorectal cancer Stroke Social History Smoking Status: Never smoker Age Started Using Tobacco: 12; Age Quit Using Tobacco: 53; packs per day: 1; Cigarettes Per Day: 20; Second Hand Exposure: No; Hx Alcohol Use: Yes Alcohol type: beer Hx Substance Use: No Preferred Language: Greek Communication Ability: Effective Visual Impairment: No Limitations Hearing Ability: Normal Stock Preparer Required: No Beliefs That Will Affect Care: None marital status: Current Living Situation: Spouse Current Living Situation Comment: from home current occupational status: retired Feels Safe at Home: Yes Childhood Exposure to Second-Hand Smoke: Yes during the past year weight has: remained stable Physical Activity Frequency: Daily Physical Activity Frequency Comment: walks a mile every day in nice weather Seatbelt Use: always Assistive Devices: Oxygen - Continuous and Walker Review of Systems Review of Systems: REVIEW OF SYSTEMS: Constitutional: No fever, sweats or chills Eyes: No diplopia, no worsening or blurred vision ENT: normal hearing, no trouble swallowing Respiratory: (+) dyspnea at rest or on exertion, No cough, sputum, Cardiovascular: (+) increase swelling of lower extremities, No chest pain, tightness or palpitations Abdomen: No pain, nausea, vomiting, diarrhea or constipation Musculoskeletal: No joint pain, calf pain, swelling Neurologic: (+) dementia, No weakness, numbness/tingling, or balance problems Psychiatric: No anxiety or depression Skin: No rash or itch Physical Exam Physical Exam: PHYSICAL EXAM: General: awake, alert, no apparent distress Head: Normocephalic, atraumatic ENT: PERRL, EOMI, no pharyngeal exudate, mucous membranes moist Neuro: AAO x 3, speech clear and appropriate, strength intact bilaterally 5/5, sensation intact and equal all extremities and dermatomes, no pronator drift Chest: equal rise and fall of the chest, dyspneic with inspiratory crackles throughout, no heaves or thrills, Clear to auscultation, on room air, Cardiac: irregular rate and rhythm, telemetry reviewed- afib V-pace, skin warm dry, cap refill <3 seconds, peripheral pulses +2 no JVD, Grade II systolic murmur, +2 edema to feet and ankles GI: NABS x 4 quadrants, soft, nontender to palpation, no rebound, guarding or tenderness : Spontaneously voiding, no pain, no CVA tenderness, Psych: Normal mood and affect Skin: no rash or erythema Results & Data Results & Data ([facility]) Vital Signs (Past 12 Hours) Vital Signs Temp Pulse Pulse Resp BP BP Pulse Ox 01/09/22 08:40 87 L 01/09/22 08:32 60 16 144/62 H 95 01/09/22 06:45 60 21 97 01/09/22 06:34 36.8 C 77 24 155/69 H 93 01/09/22 06:28 97 H 20 140/68 97 Laboratory Results Abnormal lab results 01/09/22 01/09/22 01/09/22 Range/Units 07:00 07:00 07:00 RBC 4.20 L (4.7-6.1) M/uL Hgb 13.3 L (14.0-18.0) g/dL Hct 40.6 L (42-52) % RDW Std Deviation 54.0 H (36.4-46.3) fL RDW Coeff of [place] 15.3 H (11.5-14.5) % MPV 11.4 H (7.4-10.4) fL Lymph # (Auto) 0.82 L (1.2-3.4) K/uL Green # (Auto) 0.77 H (0.11-0.59) K/uL PT (9.0-12.0) Seconds INR (0.9-1.1) APTT (21.0-31.0) Seconds VBG pH 7.46 H (7.36-7.41) BUN 32 H (6-23) mg/dl Creatinine 2.08 H (0.6-1.4) mg/dl Glucose 223 H (70-99(Fasting)) mg/dl ALT 3 L (7-52) U/L B-Natriuretic Peptide (0-100) pg/ml 01/09/22 01/09/22 Range/Units 08:41 08:41 RBC (4.7-6.1) M/uL Hgb (14.0-18.0) g/dL Hct (42-52) % RDW Std Deviation (36.4-46.3) fL RDW Coeff of [place] (11.5-14.5) % MPV (7.4-10.4) fL Lymph # (Auto) (1.2-3.4) K/uL Green # (Auto) (0.11-0.59) K/uL PT 13.0 H (9.0-12.0) Seconds INR 1.2 H (0.9-1.1) APTT 32.1 H (21.0-31.0) Seconds VBG pH (7.36-7.41) BUN (6-23) mg/dl Creatinine (0.6-1.4) mg/dl Glucose (70-99(Fasting)) mg/dl ALT (7-52) U/L B-Natriuretic Peptide 880 H (0-100) pg/ml Diagnostic Findings Chest X-Ray 01/09/22 06:45 XR chest 1V portable HISTORY: 86 years-old Male Dyspnea acute shortness of breath COMPARISON: Chest radiographs 11/21/2021 TECHNIQUE: Portable AP view of the chest FINDINGS: Cardiac silhouette is enlarged. Atherosclerosis of the aorta. Left subclavian single lead pacer. No pneumothorax. The inferior costophrenic angles are partially excluded from the [id number]. Small pleural effusions with progressive bibasilar consolidation. Pulmonary vascular congestion. Degenerative changes of the shoulders and spine. IMPRESSION: 1. Cardiomegaly with pulmonary vascular congestion. 2. Small pleural effusions with bibasilar consolidation. ACT 112: Negative or not required by law. The above report was generated using voice recognition software. It may contain grammatical, syntax or spelling errors. Electronically signed by: Irvin Talley M.D. 01/09/2022 6:56 AM Medications Administered Home Medications calcium carbonate 500 mg-vitamin D3 5 mcg (200 unit) tablet (Calcium 500 + D) 1 tab PO QDL 06/01/18 [History Confirmed 01/09/22] CPAP Machine #10 ea 07/13/19 [Rx Confirmed 12/03/21] CPAP Machine #1 ea 04/24/20 [Rx Confirmed 09/05/21] nitroglycerin 0.4 mg sublingual tablet (Nitrostat) 0.4 mg BUCCAL UD PRN #25 tab 01/08/21 [Rx Confirmed 01/09/22] albuterol sulfate 90 mcg/actuation aerosol inhaler (ProAir HFA) 2 puff INHALATION Q6H PRN #3 inhaler 04/04/21 [Rx Confirmed 01/09/22] clopidogrel 75 mg tablet 75 mg PO QAM #90 tab 05/28/21 [Rx Confirmed 01/09/22] ezetimibe 10 mg-simvastatin 20 mg tablet 1 tab PO HS #90 tab 05/28/21 [Rx Confirmed 01/09/22] levothyroxine 100 mcg tablet 100 mcg PO QAM #90 tab 05/28/21 [Rx Confirmed 01/09/22] amlodipine 10 mg tablet 10 mg PO QAM #90 tab 07/02/21 [Rx Confirmed 01/09/22] dabigatran etexilate 75 mg capsule 75 mg PO BID #180 cap 07/02/21 [Rx Confirmed 01/09/22] carbidopa 25 mg-levodopa 100 mg tablet 1 tab PO TID 90 Days #270 tab 09/05/21 [Rx Confirmed 01/09/22] clonidine HCl 0.2 mg tablet 0.2 mg PO TID #540 tab 11/14/21 [Rx Confirmed 01/09/22] allopurinol 100 mg tablet 200 mg PO QAM 01/09/22 [History Confirmed 01/09/22] calcitriol 0.5 mcg capsule 0.5 mcg PO QAM 01/09/22 [History Confirmed 01/09/22] furosemide 40 mg tablet 40 mg PO QAM 01/09/22 [History Confirmed 01/09/22] Discontinued Medications Albuterol (Albut/Ipratrop 3mg/0.5mg Neb 3 Ml Vial) 3 ml NEB NOW STA; Protocol Stop: 01/09/22 09:28 Last Admin: 01/09/22 09:35 Dose: 3 ml Documented by: [id number] Furosemide (Furosemide 40 Mg/4 Ml Vial) 40 mg IV ONE ONE Stop: 01/09/22 07:09 Last Admin: 01/09/22 07:17 Dose: 40 mg Documented by: [id number] Bumetanide 1 mg/ Syringe 4 mls @ 4 mls/min IV ONE ONE Stop: 01/09/22 10:16 Last Admin: 01/09/22 10:27 Dose: 4 mls/min Documented by: [id number] Methylprednisolone (Methylprednisolone 125 Mg/2 Ml Vial) 125 mg IV NOW STA Stop: 01/09/22 09:28 Last Admin: 01/09/22 09:35 Dose: 125 mg Documented by: [id number] ECG Additional Comments: Ventricular-paced rhythm Abnormal ECG When compared with ECG of 18-NOV-2021 10:48, Premature ventricular complexes are no longer Present Vent. rate has decreased BY 14 BPM Code Status & VTE Plan Code Status CODE: DNR/DNI VTE: SCDS, Dabigatran VTE Prophylaxis Plan VTE Prophylaxis will be ordered: Yes Supervising Physician Co-Signing Physician Notes Patient was seen and examined independently I discussed the case with Luis Fernando DUNN I reviewed pertinent past medical social family history and also the plan of care and agree with the plan of care. Patient self admits of reducing his diuretic dose as an outpatient and he presents with signs of increased shortness of breath and work of breathing likely contributed to by his pulmonary hypertension and increased volume from reducing his diuretic. Patient was educated both by Mr. Sanchez of echo myself regarding the need to continue his diuretics. Exam reveals some JVD trace lower extremity edema he has fair air movement with only crackles at the bases Patient admitted for diuresis to help offload his pulm hypertension improve his air hunger. Hypoxia will be improved with diuresis for his heart failure preserved ejection fraction. Electrolytes dietary discretion education and medication compliance education with likely involvement with a heart failure clinic Any exceptions will be noted below PG Care Time/CCT Total # of Minutes Spent Total Time Spent with Patient: Total time spent is greater than 50% in coordination of care (as documented) at patient's floor/unit and/or counseling patient: Coding Level of Care Code 61406 Initial Inpt Care Lvl 3 Diagnoses Acute exacerbation of CHF (congestive heart failure) I50.9 Dyslipidemia E78.5 Permanent atrial fibrillation I48.21 Pacemaker Z95.0 Hypertension I10 Chronic obstructive pulmonary disease J44.9 Hypothyroidism E03.9 PAD (peripheral artery disease) I73.9 Apnea, sleep G47.33 Sleep apnea type: obstructive CAD in [place] artery I25.10 Chronic kidney disease, stage 3 (moderate) N18.3 (1) Apnea, sleep Sleep apnea type: obstructive Qualified Code(s): G47.33 - Obstructive sleep apnea (adult) (pediatric)
[2022-01-09] MEDS ORDERED: BUMETANIDE 1 MG in SYRINGE 0 ML IV ONE ×2 (10:15→21:00)
[2022-01-09 11:59] LABS: Influenza A virus by PCR Negative (Neg); Influenza B virus by PCR Negative (Neg); RSV by PCR Negative (Neg); SARS CoV2 RNA(COVID-19) InHosp NEGATIVE (Negative)
[2022-01-09] MEDS ORDERED: CARBOHYDRATES FOR HYPOGLYCEMIA PO PRN (12:57)
[2022-01-09] MEDS ORDERED: ACETAMINOPHEN 325 MG TAB PO PRN (12:57)
[2022-01-09] MEDS ORDERED: DEXTROSE 50% 50 ML SYRINGE IV PRN (12:57)
[2022-01-09] MEDS ORDERED: NITROGLYCERIN SL 0.4 MG/TAB TAB SL PRN (12:57)
[2022-01-09] MEDS ORDERED: ALBUT/IPRATROP 3MG/0.5MG NEB 3 ML VIAL NEB PRN (12:57)
[2022-01-09] MEDS ORDERED: GLUCAGON FOR INJ 1 MG VIAL SQ PRN (12:57)
[2022-01-09] MEDS ORDERED: GLUCOSE 40% GEL 15 GM TUBE PO PRN (12:57)
[2022-01-09] MEDS ORDERED: GLUCOSE 10 TABS/TUBE PO PRN (12:57)
[2022-01-09] MEDS ORDERED: ALBUTEROL HFA 8 GM INHALER INH PRN (13:13)
[2022-01-09] MEDS: INSULIN ASPART PER UNIT SC SCH ×3 (13:35→20:17)
[2022-01-09] MEDS: CLONIDINE 0.1MG TABLET PO SCH ×2 (13:40→20:16)
[2022-01-09] MEDS: CARBIDOPA/LEVODOPA 25/100MG TAB PO SCH ×2 (14:00→20:16)
--- NOTE | 2022-01-09 18:04 | Electrocardiogram Report ---
Test Reason : Blood Pressure : / mmHG Vent. Rate : 061 BPM Atrial Rate : 058 BPM P-R Int : 000 ms QRS Dur : 134 ms QT Int : 476 ms P-R-T Axes : 000 -61 125 degrees QTc Int : 479 ms Ventricular-paced rhythm with fusion beats Abnormal ECG When compared with ECG of 18-NOV-2021 10:48, Premature ventricular complexes are no longer Present Vent. rate has decreased BY 14 BPM Confirmed by Rashawn Blankenship ([id number]) on 01/09/2022 6:03:55 PM Referred By: REFERRED SELF Confirmed By:Hong Blankenship
[2022-01-09] MEDS: EZETIMIBE/SIMVASTATIN 10/20 TAB PO SCH (20:17)
[2022-01-09] MEDS: DABIGATRAN ETEXILATE 75 MG CAP PO SCH (20:17)
[2022-01-10] MEDS: LEVOTHYROXINE SODIUM 100 MCG TABLET PO SCH (05:34)
[2022-01-10 05:42] LABS: Hematocrit (blood only) 38.2 % (42-52); Hemoglobin 12.9 g/dL (14.0-18.0); Immature Granulocytes # (auto) 0.01 K/uL (0.00-0.02); Immature Granulocytes % (auto) 0.1 %; Lymphocytes # (auto) 0.63 K/uL (1.2-3.4); Mean Corpuscular Hemoglobin 31.7 pg (25-34); Mean Corpuscular Hgb Conc 33.8 g/dL (32-36); Mean Corpuscular Volume 93.9 fL (80-100); Mean Platelet Volume 11.3 fL (7.4-10.4); Monocytes # (auto) 0.24 K/uL (0.11-0.59); Monocytes % (auto) 2.7 %; Neutrophils # (auto) 8.16 K/uL (1.4-6.5); Neutrophils % (auto) 90.2 %; Platelet Count 228 K/uL (130-400); RDW Coefficient of Variation 15.1 % (11.5-14.5); RDW Standard Deviation 51.9 fL (36.4-46.3); Red Blood Count 4.07 M/uL (4.7-6.1); White Blood Count 9.04 K/uL (4.8-10.8)
[2022-01-10 06:09] LABS: BUN Creatinine Ratio 19.1 (10-20); Calcium 9.3 mg/dl (8.5-10.1); Creatinine Clr Calc Pharmacy 22.8 ml/min; Est GFR (African American) 31.8 ml/min; Est GFR (Non-African American) 27.4 ml/min; Magnesium 2.3 mg/dl (1.7-2.4)
[2022-01-10] MEDS: allopurinoL 100 MG TAB PO SCH (08:22)
[2022-01-10] MEDS: amLODIPine BESYLATE 5 MG TAB PO SCH (08:22)
[2022-01-10] MEDS: CALCITRIOL 0.25 MCG CAPSULE PO SCH (08:22)
[2022-01-10] MEDS: CARBIDOPA/LEVODOPA 25/100MG TAB PO SCH ×3 (08:23→21:10)
[2022-01-10] MEDS: CLONIDINE 0.1MG TABLET PO SCH ×3 (08:23→21:14)
[2022-01-10] MEDS: DABIGATRAN ETEXILATE 75 MG CAP PO SCH ×2 (08:23→21:11)
[2022-01-10] MEDS: CLOPIDOGREL BISULFATE 75 MG TAB PO SCH (08:24)
[2022-01-10] MEDS: INSULIN ASPART PER UNIT SC SCH ×4 (08:24→21:11)
[2022-01-10] MEDS ORDERED: FUROSEMIDE 40 MG/4 ML VIAL IV SCH (09:00)
--- NOTE | 2022-01-10 15:52 | Heart Failure Consultation ---
Date of Consultation January 10, 2022 Assessment & Plan (1) Acute on chronic heart failure with preserved ejection fraction (HFpEF): (2) Chronic kidney disease, stage 3 (moderate): (3) Permanent atrial fibrillation: (4) Pacemaker: (5) Acute dyspnea: (6) Chronic obstructive pulmonary disease: (7) Apnea, sleep: Acute on chronic HFpEF: Current symptoms likely multifactorial. Patient does not appear excessively hypervolemic on exam. He has evidence of volume overload on his chest x-ray and is continuing to require supplemental O2. Patient self decreased diuretics at home. He has also been noncompliant with his CPAP which may be a contributing factor to his current decompensation. He's had several doses of IV diuretics without much documented urine output. His weight is also the same but he seems to be improving clinically. Kidney function is consistent with his typical baseline. Would continue to try to optimize his volume status. Continue Lasix 80 mg IV. Could consider transition to Bumex if additional diuresis needed. Goal to be at least 1L negative in 24 hours. If creatinine bumps and he's still symptomatic would consider pulmonary etiology. Continue daily STANDING weights. Strict I&Os. Low sodium diet. Discussed the nature of heart failure and the goals of the program. He is agreeable to ongoing participation. Follow up has been scheduled for 01/17/22 at 9:30 am. Would recommend follow up labs prior. History of Present Illness Attending Physician: Eugenio Chang MD History of Present Illness 85-year-old man with permanent atrial fibrillation (dabigatran/no need for rate control), peripheral arterial disease/status post multiple renal stents (on clopidogrel), chronic renal insufficiency (creatinine 2.0-2.5 range) presumed b ut unproven coronary disease, who recently developed marked bradycardia and underwent single-chamber pacemaker placement. Dr. Vega is his primary tactical debriefer. Recent cardiac studies: 1. 10/29/21 Echo: LV normal size. EF 50-55%. No RWMA. RV mildly dilated. RV systolic function is normal. Moderate MR. Left atrium moderately dilated. Moderate TR. Severe pulmonary hypertension. Moderately dilated IVC. Patient was admitted in November for CHF exacerbation. He was treated with IV Lasix. Lasix increased to 40 mg BID on discharge. He presented to the ED on 01/09/22 with increasing shortness of breath x 1 week. Patient consistently self decreases diuretics at home so etiology likely medication nonadherence. He also has not been using his CPAP due to a wound on his head. CXR consistent with pulmonary edema. He was treated with IV Lasix, Duoneb and Solumedrol. Not much response to IV Lasix and he was given Bumex 1 mg on admission. He had Lasix 80 mg IV this am. He remains net neutral if accur ate. Weight is 172 lb this am on standing scale which is also unchanged from admission. He reports he's feeling somewhat better but is still requiring 3L O2 which is new. He denies orthopnea or PND. He minimal lower extremity edema. Kidney function consistent with his baseline. He denies chest pain, palpitations, cough. Allergies Allergy/AdvReac Type Severity Reaction Status Date / Time hydralazine AdvReac Severe anorexia,h/ Verified 01/09/22 08:09 a,nausea,pa lpitations Home Medications Medication Instructions Recorded Confirmed Type calcium carbonate 500 mg-vitamin 1 tab PO QDL 06/01/18 01/09/22 History D3 5 mcg (200 unit) tablet (Calcium 500 + D) CPAP Machine #10 ea 07/13/19 12/03/21 Rx CPAP Machine #1 ea 04/24/20 09/05/21 Rx nitroglycerin 0.4 mg sublingual 0.4 mg BUCCAL UD PRN #25 tab 01/08/21 01/09/22 Rx tablet (Nitrostat) albuterol sulfate 90 mcg/actuation 2 puff INHALATION Q6H PRN #3 04/04/21 01/09/22 Rx aerosol inhaler (ProAir HFA) inhaler clopidogrel 75 mg tablet 75 mg PO QAM #90 tab 05/28/21 01/09/22 Rx ezetimibe 10 mg-simvastatin 20 mg 1 tab PO HS #90 tab 05/28/21 01/09/22 Rx tablet levothyroxine 100 mcg tablet 100 mcg PO QAM #90 tab 05/28/21 01/09/22 Rx amlodipine 10 mg tablet 10 mg PO QAM #90 tab 07/02/21 01/09/22 Rx dabigatran etexilate 75 mg capsule 75 mg PO BID #180 cap 07/02/21 01/09/22 Rx carbidopa 25 mg-levodopa 100 mg 1 tab PO TID 90 Days #270 tab 09/05/21 01/09/22 Rx tablet clonidine HCl 0.2 mg tablet 0.2 mg PO TID #540 tab 11/14/21 01/09/22 Rx allopurinol 100 mg tablet 200 mg PO QAM 01/09/22 01/09/22 History calcitriol 0.5 mcg capsule 0.5 mcg PO QAM 01/09/22 01/09/22 History furosemide 40 mg tablet 40 mg PO QAM 01/09/22 01/09/22 History Patient History Medical History (Updated 01/10/22 @ 16:02 by Gaby Turcios PA-C) Anticoagulant long-term use Carotid artery stenosis Chronic constipation Chronic kidney disease, stage 3 (moderate) Dyslipidemia Exertional angina Former smoker GERD (gastroesophageal reflux disease) Gout History of DVT (deep vein thrombosis) HTN (hypertension) Hypothyroid Pacemaker (01/2021) Parkinson's disease Permanent atrial fibrillation Pleural effusion Subdural hematoma (2006) Surgical History H/O vasectomy History of appendectomy History of renal stent (2006) Right History of renal stent (2008) Left Hx of tonsillectomy S/P carotid endarterectomy (1994) S/P insertion of inferior vena caval filter Family History Father Diabetes Denies family history of Ovarian cancer Prostate cancer Myocardial infarction Breast cancer Lung cancer Colorectal cancer Stroke Social History Smoking Status: Former smoker Age Started Using Tobacco: 12; Age Quit Using Tobacco: 53; packs per day: 1; Cigarettes Per Day: 20; Second Hand Exposure: No; Hx Alcohol Use: Yes Alcohol type: beer Hx Substance Use: No Preferred Language: Bahamian Communication Ability: Effective Visual Impairment: No Limitations Hearing Ability: Normal Can Solderer Required: No Beliefs That Will Affect Care: None marital status: Current Living Situation: Spouse Current Living Situation Comment: from home current occupational status: retired Feels Safe at Home: Yes Childhood Exposure to Second-Hand Smoke: Yes during the past year weight has: remained stable Physical Activity Frequency: Daily Physical Activity Frequency Comment: walks a mile every day in nice weather Seatbelt Use: always Assistive Devices: None Physical Exam Physical Exam: General: Alert, no distress. Supplemental O2 Skin with rare ecchymoses only, no generalized lesions. HEENT: Unremarkable. Biopsy site w bandaid Neck: jugular venous pulse at the clavicle at 90 degrees, transmitted murmur versus carotid bruits. Lungs: Mildly decreased breath sounds but clear bilaterally with quiet respiration. Cardiac: Irregular rhythm, grade 2 systolic murmur. Abdomen benign. Extremities: diminished but palpable posterior pulses. trace-1+ pretibial edema, good capillary refill. Neurologic: normal affect, and grossly nonfocal. Results & Data ([facility]) Vital Signs (Past 12 Hours) Vital Signs Temp Pulse Pulse Resp BP BP Pulse Ox 01/10/22 15:11 60 01/10/22 15:03 98.2 F 59 L 18 154/71 H 96 01/10/22 11:47 98.1 F 67 20 169/75 H 93 01/10/22 06:45 98.1 F 80 20 173/68 H 96 01/10/22 06:08 68 Coding Level of Care Code 42504 Initial Inpt Care Lvl 3 Diagnoses Acute on chronic heart failure with preserved ejection fraction (HFpEF) I50.33 Chronic kidney disease, stage 3 (moderate) N18.3 Permanent atrial fibrillation I48.21 Pacemaker Z95.0 Acute dyspnea R06.00 Chronic obstructive pulmonary disease J44.9 Apnea, sleep G47.33 Sleep apnea type: obstructive (1) Apnea, sleep Sleep apnea type: obstructive Qualified Code(s): G47.33 - Obstructive sleep apnea (adult) (pediatric)
--- NOTE | 2022-01-10 17:04 | Hospitalist Progress Note ---
Date of Service January 10, 2022 Assessment & Plan (1) Acute exacerbation of CHF (congestive heart failure): Plan: Acute on chronic HFpEF exacerbation- related to medical non-compliance - As per HPI patient self adjusted his oral diuretic therapy resulting in increase in fluid retention - He has also not been using his CPAP because of recent scalp surgery affecting strap placement - although not a large diuresis recorded symptoms are much improved started on lasix 80 mg a day - Continue amlodipine - Refer to [facility] HF program to better assist with his managment and follow up- appreciate assistance- may benefit from medication optimization with reduction other agents if able (2) Dyslipidemia: Plan: Continue ezetimibe and Simvastatin (3) Permanent atrial fibrillation: Plan: With single RV lead chamber pacemaker- placed for dyscncrhony - Has not had anginal complaints since placement per cardiology review - Low rate 60 (4) Pacemaker: Plan: As above (5) Hypertension: Plan: As above - Continue amlodipine and Clonidine (6) Chronic obstructive pulmonary disease: Plan: No PFTs available for review - He was previously on spiriva but has been discontinued - - He endorses that he rarely needs his DANN inhaler but did increase use since feeling dyspneic - he is not hypercarbic on VBG and without wheezing on exam- no further steroid indication and do not feel his dyspnea is related to his COPD at ths time (7) Hypothyroidism: Plan: Continue synthroid (8) PAD (peripheral artery disease): Plan: with history of stents to periphery as well as renal artery and history of CEA- - continue lipid management - continue Plavix - Renal stents x3 (9) Apnea, sleep: Plan: CPAP 11CM H20- continue use while in house and re-educate on use at home (10) CAD in [place] artery: Plan: Presumed CAD- had lexiscan in 2020 without ischemia noted - Continue as above (11) Chronic kidney disease, stage 3 (moderate): Plan: CKD III with HTN and RAFI requiring stenting as above - has been stable while on his high dose of diuretics - continue to follow - avoid further nephrotoxic medications - diurese until euvolemia to mild hypovolemia Admission and Anticipated Discharge Date Admission Date: January 09, 2022 Subjective pt feels much better, has been able to lay flat, no chest pain, not exacerbations of shortness of breath Review of Systems Review of Systems: Mild distress and fatigue no headache, no visual changes no speech or swallowing issues no chest pain, pressure or palpitations no exacerbation of shortness of breath no abdominal pain, nausea or vomiting, diarrhea or constipation no dysuria, hematuria or frequency no focal joint pain or swelling no back pain, CVA tenderness or radicular pain no bruising, bleeding or rashes no focal signs of weakness or numbness or altered sensation no complaints of anxiety or depression.. Physical Exam Physical Exam: The patient appeared well nourished and normally developed. Vital signs as documented. Head exam is normocephalic atraumatic Neck is with 1 cm JVD, thyromegaly, or carotid bruits. Lungs are clear to auscultation, no rales at bases Cardiac exam, Rhythm is regular.. No murmurs, rubs or gallops. Abdominal exam reveals normal bowel sounds, soft non tender, no masses Extremities are nonedematous and both pedal pulses are present Neurologic exam is alert and oriented, no focal loss of strength or sensation Skin is without bruises or rashes Psychologically is without concerns for anxiety or depression.. Results & Data Results & Data ([facility]) Vital Signs (Past 12 Hours) Vital Signs Temp Pulse Pulse Resp BP BP Pulse Ox 01/10/22 15:11 60 01/10/22 15:03 98.2 F 59 L 18 154/71 H 96 01/10/22 11:47 98.1 F 67 20 169/75 H 93 01/10/22 06:45 98.1 F 80 20 173/68 H 96 01/10/22 06:08 68 PG Care Time/CCT Total # of Minutes Spent Total Time Spent with Patient: Total time spent is greater than 50% in coordination of care (as documented) at patient's floor/unit and/or counseling patient: Coding Level of Care Code 64424 Subseq Hosp Care Lvl 2 Diagnoses Acute exacerbation of CHF (congestive heart failure) I50.9 Dyslipidemia E78.5 Permanent atrial fibrillation I48.21 Pacemaker Z95.0 Hypertension I10 Chronic obstructive pulmonary disease J44.9 Hypothyroidism E03.9 PAD (peripheral artery disease) I73.9 Apnea, sleep G47.33 Sleep apnea type: obstructive CAD in [place] artery I25.10 Chronic kidney disease, stage 3 (moderate) N18.3 (1) Apnea, sleep Sleep apnea type: obstructive Qualified Code(s): G47.33 - Obstructive sleep apnea (adult) (pediatric)
[2022-01-10] MEDS: EZETIMIBE/SIMVASTATIN 10/20 TAB PO SCH (21:10)
[2022-01-11] MEDS: LEVOTHYROXINE SODIUM 100 MCG TABLET PO SCH (05:52)
[2022-01-11 06:17] LABS: Basophils # (auto) 0.01 K/uL (0-0.2); Basophils % (auto) 0.1 %; Hematocrit (blood only) 36.2 % (42-52); Hemoglobin 11.8 g/dL (14.0-18.0); Immature Granulocytes # (auto) 0.02 K/uL (0.00-0.02); Immature Granulocytes % (auto) 0.2 %; Lymphocytes # (auto) 0.88 K/uL (1.2-3.4); Lymphocytes % (auto) 8.1 %; Mean Corpuscular Hemoglobin 31.2 pg (25-34); Mean Corpuscular Hgb Conc 32.6 g/dL (32-36); Mean Corpuscular Volume 95.8 fL (80-100); Mean Platelet Volume 11.5 fL (7.4-10.4); Monocytes # (auto) 1.26 K/uL (0.11-0.59); Monocytes % (auto) 11.6 %; Platelet Count 224 K/uL (130-400); RDW Coefficient of Variation 15.5 % (11.5-14.5); RDW Standard Deviation 54.2 fL (36.4-46.3); Red Blood Count 3.78 M/uL (4.7-6.1); White Blood Count 10.87 K/uL (4.8-10.8)
[2022-01-11 06:40] LABS: BUN Creatinine Ratio 26.3 (10-20); Calcium 8.9 mg/dl (8.5-10.1); Creatinine Clr Calc Pharmacy 24.1 ml/min; Est GFR (Non-African American) 29.3 ml/min; Magnesium 2.4 mg/dl (1.7-2.4)
[2022-01-11] MEDS: INSULIN ASPART PER UNIT SC SCH ×2 (07:47→12:03)
[2022-01-11] MEDS: allopurinoL 100 MG TAB PO SCH (08:02)
[2022-01-11] MEDS: amLODIPine BESYLATE 5 MG TAB PO SCH (08:02)
[2022-01-11] MEDS: CLOPIDOGREL BISULFATE 75 MG TAB PO SCH (08:03)
[2022-01-11] MEDS: CARBIDOPA/LEVODOPA 25/100MG TAB PO SCH (08:03)
[2022-01-11] MEDS: CALCITRIOL 0.25 MCG CAPSULE PO SCH (08:04)
[2022-01-11] MEDS: DABIGATRAN ETEXILATE 75 MG CAP PO SCH (08:04)
[2022-01-11] MEDS ORDERED: FUROSEMIDE 40 MG/4 ML VIAL IV SCH (09:00)
[2022-01-11] MEDS: CLONIDINE 0.1MG TABLET PO SCH (10:32)
--- NOTE | 2022-01-11 13:19 | Discharge Summary ---
Date of Service January 11, 2022 Admission HPI Per Admitting Provider 86 YOM with medical history of: Renal artery stent (2006) secondary to stenosis, subdural hematoma in the setting of elevated INR, permanent afib with single lead pacemaker (2020), CAD, HFpEF, CKD IIIb, exertional angina, CEA (1994), HLD, Hypothyroidism, IVC filter, COPD, pulmonary htn, DMII. Patient comes to the EMD today for complaints of increase in dyspnea and lower extremity swelling that has been ongoing for the past 5 days. He noticed his ankles swelling more this morning. The patient states that he was taking his Lasix as 80mg PO BID that he was discharged on following last admission, but decreased h is dose on Thursday back to 40mg daily. The patient endorses 2 pound weight gain since the beginning of the week. He has also not been wearing his CPAP at night because of his biopsy site on the top of his head. In the EMD the patient had routine labs done to include HScTNI, BNP, VBG, CXR and ECG. He was not hypercarbic, BNP is elevated, HScTNI was negative. CXR was most consistent with pulmonary edema. He was given 40mg IV lasix by EMD at 0730 and has yet to void. He was also given 125mg Solumederol and a nebulizer treatment. Patient will be admitted for acute heart failure exacerbation likely in the setting of medication non-adherence/confusion. Will give 1mg BUMEX IV now and continue to follow his diuresing tonight to re-dose. Will consult the HF program. COVID test on admission is: NEGATIVE Principal Diagnosis Exacerbation of heart failure preserved ejection fraction Noncompliant with medication Sleep apnea with noncompliance of CPAP Pulmonary hypertension Discharge Exam The patient appeared well Vital signs as documented. Does have 1 cm JVD Lungs are clear to auscultation and appear unlabored patient able to lay flat when sleeping Cardiac exam, Rhythm is regular.. Systolic murmur is heard Abdominal exam reveals normal bowel sounds, soft non tender, no masses Extremities are nonedematous and both extremities still have some skin changes Neurologic exam is alert and oriented, no focal loss of strength or sensation Skin is without bruises or rashes Psychologically is without concerns for anxiety or depression. Discharge Data Allergies Allergy/AdvReac Type Severity Reaction Status Date / Time hydralazine AdvReac Severe anorexia,h/ Verified 01/09/22 08:09 a,nausea,pa lpitations Consultations 01/09/22 10:00 ED Decision to Admit Stat 01/09/22 12:57 [facility] CHF Program Referral Routine Hospital Course (1) Acute exacerbation of CHF (congestive heart failure): Acute on chronic HFpEF exacerbation- related to medical non-compliance - As per HPI patient self adjusted his oral diuretic therapy resulting in increase in fluid retention - He has also not been using his CPAP because of recent scalp surgery affecting strap placement unable to wear his CPAP in the hospital without discomfort to his scalp surgery - although not a large diuresis recorded symptoms are much improved on Lasix 120 mg a day all taken in the morning - Continue amlodipine - Refer to [facility] HF program to better assist with his managment and follow up- appreciate assistance- may benefit from medication optimization with reduction other agents if able (2) Dyslipidemia: Continue ezetimibe and Simvastatin (3) Permanent atrial fibrillation: With single RV lead chamber pacemaker- placed for dyscncrhony - Has not had anginal complaints since placement per cardiology review Remains on Pradaxa twice daily - (4) Pacemaker: As above (5) Hypertension: As above - Continue amlodipine and Clonidine (6) Chronic obstructive pulmonary disease: No PFTs available for review - He was previously on spiriva but has been discontinued - - He endorses that he rarely needs his DANN inhaler but did increase use since feeling dyspneic - he is not hypercarbic on VBG and without wheezing on exam- no further steroid indication and do not feel his dyspnea is related to his COPD at ths time (7) Hypothyroidism: Continue synthroid (8) PAD (peripheral artery disease): with history of stents to periphery as well as renal artery and history of CEA- - continue lipid management - continue Plavix - Renal stents x3 (9) Apnea, sleep: CPAP 11CM H20- continue use educated on need of use at home (10) CAD in [place] artery: Presumed CAD- had lexiscan in 2020 without ischemia noted - Continue as above (11) Chronic kidney disease, stage 3 (moderate): CKD III with HTN and RAFI requiring stenting as above - has been stable while on his high dose of diuretics - continue outpatient follow-up Total Time Total Time Spent Total Time Spent (In Minutes): It required greater than 30 minutes to prepare this patient for discharge Discharge Plan Discharge Items Patient Disposition: Home - Self-Care Reason For Visit: CHF EXACERBATION,HYPOXIA Discharge Diagnosis: heart failure shortness of breath due to heart failure and pulmonary hypertension Activity: Resume your previous activity Non-emergency contact: Primary Care Provider and Refinery Operator Call non-emergency contact if: your symptoms worsen Follow-up/Referrals: Chavez Young MD [Primary Care Provider] - Gaby Turcios PA-C [Physician Rn Invasive] - 01/17/22 9:30 am (Congestive Heart Failure Program Appointment Information Early follow up is essential to managing your heart failure. An appointment has been scheduled for you with the [facility] Heart Failure Program within 7 days of discharge. Anticipate this visit to be 30-60 minutes long. Please expect a system development engineer phone call from one of our nurses approximately 48 hours from discharge. They will also be placing an order for lab work to be completed 1-2 days prior to your heart failure follow up appointment. Please be sure to have this done so we can go over the results when you come in. Office Location The cardiology office building is located in front of the hospital at [address]. Bring the following with you to your follow-up doctor appointments: Please bring your daily weight log any discharge paperwork all of your medication bottles with you to this visit. ) Diet: Low Sodium (2gm) Addtl Attending Provider Instructions: Please do not stop your your diuretic medication, furosemide, unless you discussed this with the provider. At the time of discharge you are on 120 mg once a day each morning. Follow the instructions below weighing her self is very important as well as staying away from salty foods. Despite the best treatment of your heart failure you still may find yourself feeling shortness of breath with exertion from time to time. If this worsens it may be a sign you need more furosemide or even in a visit to your doctor for evaluation of other causes of shortness of breath. Is also also wear your CPAP machine at night this will help prevent you from having issues with your heart failure Call 911 and go to the Emergency Room if: * You have tightness or pain in your chest that does not go away with rest or Nitroglycerin * You are very short of breath even with rest Call your doctor if any of the following symptoms or problems start or get worse: * Shortness of breath or difficulty breathing * Wake up at night short of breath * Chest pain * Cough * Swelling of your hands, fee, or legs * More fatigued or tired with your normal activity * Palpitations - sudden fast heart beats WEIGHT * Weigh yourself every morning after using the bathroom. * Use the same scale. * Wear the same amount of clothing. * Write your weight down on your chart. * Call your doctor if you gain more than 2-3 pounds in 1-2 days. MEDICATIONS * Use this discharge instruction sheet for instructions. * Take your medications at the time your doctor ordered. * Do not skip a dose of your medicines. * If you miss a dose of medicine, take as soon as possible, but DO NOT DOUBLE A DOSE. * Read your medicine information when you get home. * Know all of the side effects of your medicine. * Call your doctor's office if you have any side effects. * Be sure all of your doctors know what medicine and herbs you take (including cold, flu, and herbal medicine). * Pain Medicine: If you do not get relief from your pain, please call your doctor for help. Take the following with you to your follow-up doctor appointments: * Weight Chart * Medication List * List of questions Do not drink excessive alcohol, beer or wine. Pending Studies at Discharge: No Stand-Alone Forms: My [facility], Smoking Cessation Medications and DC Order Prescriptions: Continued albuterol sulfate [ProAir HFA] 90 mcg/actuation HFA aerosol inhaler 2 puff inhalation Q6H PRN (Reason: shortness of breath or wheezing) Qty: 3 RF: 1 dabigatran etexilate 75 mg capsule 75 mg PO BID Qty: 180 RF: 3 amlodipine 10 mg tablet 10 mg PO QAM Qty: 90 RF: 3 clonidine HCl 0.2 mg tablet 0.2 mg PO TID Qty: 540 RF: 3 (DME) CPAP Machine Misc See Rx Instructions .ROUTE .MEDSUPPLY Qty: 1 RF: 0 nitroglycerin [Nitrostat] 0.4 mg tablet, sublingual 0.4 mg buccal UD PRN (Reason: Chest Pain) Qty: 25 RF: 5 carbidopa-levodopa 25-100 mg tablet 1 tab PO TID 90 Days Qty: 270 RF: 3 (DME) CPAP Machine Misc See Dose Instructions .ROUTE .MEDSUPPLY Qty: 10 RF: 0 clopidogrel 75 mg tablet 75 mg PO QAM Qty: 90 RF: 3 ezetimibe-simvastatin 10-20 mg tablet 1 tab PO HS Qty: 90 RF: 3 levothyroxine 100 mcg tablet 100 mcg PO QAM Qty: 90 RF: 3 calcium carbonate-vitamin D3 [Calcium 500 + D] 500 mg(1,250mg) -200 unit Tablet 1 tab PO QDL RF: 0 calcitriol 0.5 mcg capsule 0.5 mcg PO QAM RF: 0 allopurinol 100 mg tablet 200 mg PO QAM RF: 0 Changed furosemide 40 mg tablet 120 mg PO QAM Qty: 0 RF: 0 Discharge Orders: Discharge Order (Routine); Ordered 01/11/22 Ordered By: Eugenio Chang Admission Data Admit Date/Time: 01/09/22 10:02 Attending Provider: Eugenio Chang Admit Provider: Eugenio Chang Primary Care Provider: Chavez Young Other Providers: Eugenio Chang ; Gaby Turcios Other Interventions: Discharge Summary Assessment (RN) Last Done: 01/11/22 12:05 Coding Level of Care Code D/C DAY MANAGEMENT >30 MINS Diagnoses Acute exacerbation of CHF (congestive heart failure) I50.9 Dyslipidemia E78.5 Permanent atrial fibrillation I48.21 Pacemaker Z95.0 Hypertension I10 Chronic obstructive pulmonary disease J44.9 Hypothyroidism E03.9 PAD (peripheral artery disease) I73.9 Apnea, sleep G47.33 Sleep apnea type: obstructive CAD in [place] artery I25.10 Chronic kidney disease, stage 3 (moderate) N18.3
== END 2022-01-11 14:27 | disposition home or self-care (01) | DRG 291 ==
LOC: ED 06:28 → EDINP 10:02 → 2N 12:48

== ENCOUNTER 2022-09-24 08:20 | Inpatient (IN) ==
--- NOTE | 2022-09-24 08:35 | Emergency Department Note ---
Impression & Plan Acute electrocardiogram changes, Breath shortness, Anticoagulant long-term use, Chronic kidney disease, stage 3 (moderate) ED Provider Note NAME: RONNIE HAUSER AGE: 86 SEX: M : 1935 ARRIVES VIA: Walk-In INFORMANT: Patient ED PROVIDER(S): Shree Atkins DO CHIEF COMPLAINT: shortness of breath HPI: Patient is an 86-year-old male with a past medical history of COPD, pulmonary hypertension, mitral regurg, A. fib on Coumadin, CHF, peripheral artery disease, hypertension, CAD who presents the ER for shortness of breath which has been getting worse for the past 3 to 4 days. He denies any new cough or congestion. No change in sputum. No weight gain. Baseline weight is about 160 pounds. Currently he is wearing the same this morning. Denies any chest pain. Shortness of breath is present with constantly regardless of what he is doing. Does not change with exertion or laying flat. No belly pain nausea vomiting or diarrhea. No swelling in the legs. No dysuria urgency or frequency. No other exacerbating or remitting factors. PAST MEDICAL HISTORY:See Below PAST SURGICAL HISTORY:See Below FAMILY HISTORY:See Below SOCIAL HISTORY:See Below HOME MEDICATIONS:See Below ALLERGIES:See Below VITALS:See Below PHYSICAL EXAMINATION: GENERAL: Sitting up in bed, alert, well appearing, well nourished, no distress, non-toxic EYE EXAM: normal conjunctiva. PERRL and EOM's grossly intact. OROPHARYNX: no exudate, no erythema, lips, buccal mucosa, and tongue normal and mucous membranes are moist NECK: supple, no nuchal rigidity, no adenopathy, non-tender LUNGS: Clear to auscultation. Normal chest wall mechanics HEART: no murmurs, S1 normal and S2 normal ABDOMEN: abdomen soft, non-tender, normo-active bowel sounds, no masses, no rebound or guarding. UPPER EXTREMITIES: upper extremities are grossly normal. LOWER EXTREMITIES: No pitting edema. NEURO EXAM: Normal sensorium, cranial nerves II-XII grossly intact, normal speech, no gross weakness of arms, no gross weakness of legs. MEDICAL DECISION MAKING: Patient is a 86-year-old male with a past medical history of COPD, pulmonary hypertension, mitral regurg, chronic A. fib on Coumadin, CHF, PAD, hypertension and CAD with a pacer who presents to the [facility] for shortness of breath. external records were reviewed. IV was established blood work was obtained. Labs show no significant leukocytosis. Mild anemia 12.7. BMP with creatinine 1.8 consistent with previous and CKD. Glucose mildly elevated at 197. No transaminitis. T bili was normal. Troponin was not elevated and is not consistent with ACS at this time however EKG does show new T wave inversions and ST depressions. BNP was elevated. Pro-Noe was normal. COVID flu and RSV were negative. Chest x-ray suggested a right upper lobe infiltrate. Patient was updated at bedside. Discussed with the hospitalist in regards to the presen tation work-up or treatment and I do feel this patient needs admission. Patient was given IV Rocephin and azithromycin while in the ER. Triage Nursing notes reviewed. Limited review of prior medical records performed Vital Signs: reviewed and remarkable for no significant abnormalities Differential diagnosis: Differential diagnoses includes but is not limited to pneumonia, bronchitis, COPD/Asthma exacerbation, pneumothorax, pulmonary embolism, congestive heart failure, acute coronary syndrome ER treatment provided: See below Diagnostics interpreted by me include EKG and cardiac monitoring as listed below: -Cardiac Monitoring: An order was placed for continuous cardiac monitoring. The monitor shows a rate of 82 with sinus rhythm. -ECG: Intermittently paced rate of 71 ST depressions and T wave inversions V4 through V6 as well as the inferior leads which is new in comparison to previous -Laboratory studies:Interpreted by me as stated above in MDM and shown below. Imaging studies: Xrays: As interpreted by me: Shows a right mid lung infiltrate CTs show: none Consultation(s): Discussed with Misty from OR hospitalist service Procedures:none Critical Care: None Past Med/Surg History Medical History Anticoagulant long-term use Carotid artery stenosis Chronic constipation Chronic kidney disease, stage 3 (moderate) Dyslipidemia Former smoker GERD (gastroesophageal reflux disease) Gout History of DVT (deep vein thrombosis) HTN (hypertension) Hypothyroid Pacemaker (01/2021) Parkinson's disease Permanent atrial fibrillation Pleural effusion Subdural hematoma (2006) Surgical History H/O vasectomy History of appendectomy History of renal stent (2006) Right History of renal stent (2008) Left Hx of tonsillectomy S/P carotid endarterectomy (1994) S/P insertion of inferior vena caval filter Family History Father Diabetes Denies family history of Ovarian cancer Prostate cancer Myocardial infarction Breast cancer Lung cancer Colorectal cancer Stroke Social History Smoking Status: Former smoker Age Started Using Tobacco: 12; Age Quit Using Tobacco: 53; packs per day: 1; Cigarettes Per Day: 20; Second Hand Exposure: No; Do You Dip or Chew Tobacco: No; Tobacco Cessation Education Requested by Patient: No Hx Alcohol Use: Yes Alcohol type: beer Hx Substance Use: No Preferred Language: Macedonian Communication Ability: Effective Visual Impairment: No Limitations Hearing Ability: Normal 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 Beliefs That Will Affect Care: None marital status: Current Living Situation: Spouse Current Living Situation Comment: from home current occupational status: retired Other Information That Helps Us Care for You: No Feels Safe at Home: Yes Safety Concerns: Feels Safe At This Time Childhood Exposure to Second-Hand Smoke: Yes during the past year weight has: remained stable Physical Activity Frequency: Daily Physical Activity Frequency Comment: walks a mile every day in nice weather Seatbelt Use: always Assistive Devices: CPAP Allergies Allergies Allergy/AdvReac Type Severity Reaction Status Date / Time hydralazine AdvReac Severe anorexia,h/ Verified 08/27/22 14:25 a,nausea,pa lpitations Home Meds Home Medications Medication Instructions Recorded Confirmed calcium carbonate 500 mg-vitamin 1 tab PO QDL 06/01/18 08/27/22 D3 5 mcg (200 unit) tablet (Calcium 500 + D) Previous Rx's Medication Instructions Recorded CPAP Machine #10 ea 07/13/19 CPAP Machine #1 ea 04/24/20 nitroglycerin 0.4 mg sublingual 0.4 mg buccal UD PRN Chest Pain 01/08/21 tablet (Nitrostat) #25 tabs levothyroxine 100 mcg tablet 100 mcg PO QAM #90 tabs 02/11/22 clopidogrel 75 mg tablet 75 mg PO QAM #90 tabs 05/01/22 potassium chloride 20 mEq 20 meq PO DAILY #90 tabs 08/16/22 tablet,extended release allopurinol 100 mg tablet 200 mg PO QAM #180 tabs 06/30/22 amlodipine 10 mg tablet 10 mg PO QAM #90 tabs 06/30/22 clonidine HCl 0.2 mg tablet 0.2 mg PO TID #540 tabs 06/30/22 furosemide 40 mg tablet 120 mg PO QAM #270 tabs 06/30/22 dabigatran etexilate 75 mg capsule 75 mg PO BID #180 caps 07/28/22 ezetimibe 10 mg-simvastatin 20 mg 1 tab PO HS #90 tabs 07/28/22 tablet carbidopa 25 mg-levodopa 100 mg 1 tab PO TID 90 days #270 tabs 08/27/22 tablet Results & Data (ED) Vital Signs Vital Signs - 24 hr 09/24/22 08:21 09/24/22 08:21 09/24/22 08:55 Temperature 36.8 C Temperature Source Temporal Artery Scan Pulse Rate 87 Respiratory Rate 18 Blood Pressure 145/74 H Blood Pressure Mean 97 Pulse Oximetry 94 95 Oxygen Delivery Method Room Air Room Air Room Air Oxygen Flow Rate Sepsis Recent Fever Within 48 Hours No Sepsis New/Unexplained Change in Mental Status No Sepsis Action Taken by Nursing No Action Required 09/24/22 08:55 09/24/22 09:49 09/24/22 09:49 Temperature Temperature Source Pulse Rate Respiratory Rate Blood Pressure Blood Pressure Mean Pulse Oximetry 95 87 L 93 Oxygen Delivery Method Room Air Room Air Nasal Cannula Oxygen Flow Rate 2 Sepsis Recent Fever Within 48 Hours Sepsis New/Unexplained Change in Mental Status Sepsis Action Taken by Nursing Laboratory Data 09/24/22 08:32 09/24/22 08:32 Lab Results 09/24/22 09/24/22 09/24/22 Range/Units 08:32 08:32 08:32 WBC 10.82 H (4.8-10.8) K/ul RBC 4.15 L (4.63-6.08) M/uL Hgb 12.7 L (14.0-18.0) g/dl Hct 37.2 L (40.1-51.0) % MCV 89.6 (80.0-100.0) fL MCH 30.6 (25.0-34.0) pg MCHC 34.1 (32.0-36.0) g/dL RDW Std Deviation 47.2 H (36.4-46.3) fL RDW Coeff of [place] 14.3 (11.5-14.5) % Plt Count 208 (130-400) K/uL MPV 11.7 (9.4-12.4) fL Immature Gran % (Auto) 0.3 % Neut % (Auto) 76.5 % Lymph % (Auto) 8.9 % [place] % (Auto) 13.2 % Eos % (Auto) 0.8 % Baso % (Auto) 0.3 % Neut # (Auto) 8.28 H (1.4-6.5) K/uL Lymph # (Auto) 0.96 L (1.2-3.4) K/uL [place] # (Auto) 1.43 H (0.24-0.82) K/uL Eos # (Auto) 0.09 (0-0.50) K/uL Baso # (Auto) 0.03 (0-0.2) K/uL Immature Gran # (Auto) 0.03 H (0.00-0.02) K/uL Sodium 139 (136-145) mmol/L Potassium 3.8 (3.5-5.1) mmol/L Chloride 103 (98-107) mmol/L Carbon Dioxide 25 (21-32) mmol/L Anion Gap 11 (3-11) BUN 46 H (6-23) mg/dl Creatinine 1.86 H (0.6-1.4) mg/dl Est Cr Clr Drug Dosing 26.6 ml/min Est GFR ( Amer) 36.6 ml/min Est GFR (Non-Af Amer) 31.6 ml/min BUN/Creatinine Ratio 24.7 H (10-20) Glucose 197 H (70-99(Fasting)) mg/dl Calcium 9.3 (8.5-10.1) mg/dl Total Bilirubin 0.8 (0.2-1.0) mg/dl AST 16 (13-39) U/L ALT 4 L (7-52) U/L Alkaline Phosphatase 77 (34-104) U/L Troponin I High Sens 16.1 (0-20) pg/ml B-Natriuretic Peptide 837 H (0-100) pg/ml Total Protein 7.5 (6.0-8.3) gm/dl Albumin 4.2 (3.4-5.0) gm/dl Globulin 3.3 (2.5-4.0) gm/dl Albumin/Globulin Ratio 1.3 (0.9-2) Lipase 32 (11-82) U/L SARS-CoV-2 (PCR) (Negative) Influenza Type A (PCR) (Neg) Influenza Type B (PCR) (Neg) RSV (RT-PCR) (Neg) 09/24/22 Range/Units 08:32 WBC (4.8-10.8) K/ul RBC (4.63-6.08) M/uL Hgb (14.0-18.0) g/dl Hct (40.1-51.0) % MCV (80.0-100.0) fL MCH (25.0-34.0) pg MCHC (32.0-36.0) g/dL RDW Std Deviation (36.4-46.3) fL RDW Coeff of [place] (11.5-14.5) % Plt Count (130-400) K/uL MPV (9.4-12.4) fL Immature Gran % (Auto) % Neut % (Auto) % Lymph % (Auto) % [place] % (Auto) % Eos % (Auto) % Baso % (Auto) % Neut # (Auto) (1.4-6.5) K/uL Lymph # (Auto) (1.2-3.4) K/uL [place] # (Auto) (0.24-0.82) K/uL Eos # (Auto) (0-0.50) K/uL Baso # (Auto) (0-0.2) K/uL Immature Gran # (Auto) (0.00-0.02) K/uL Sodium (136-145) mmol/L Potassium (3.5-5.1) mmol/L Chloride (98-107) mmol/L Carbon Dioxide (21-32) mmol/L Anion Gap (3-11) BUN (6-23) mg/dl Creatinine (0.6-1.4) mg/dl Est Cr Clr Drug Dosing ml/min Est GFR ( Amer) ml/min Est GFR (Non-Af Amer) ml/min BUN/Creatinine Ratio (10-20) Glucose (70-99(Fasting)) mg/dl Calcium (8.5-10.1) mg/dl Total Bilirubin (0.2-1.0) mg/dl AST (13-39) U/L ALT (7-52) U/L Alkaline Phosphatase (34-104) U/L Troponin I High Sens (0-20) pg/ml B-Natriuretic Peptide (0-100) pg/ml Total Protein (6.0-8.3) gm/dl Albumin (3.4-5.0) gm/dl Globulin (2.5-4.0) gm/dl Albumin/Globulin Ratio (0.9-2) Lipase (11-82) U/L SARS-CoV-2 (PCR) NEGATIVE (Negative) Influenza Type A (PCR) Negative (Neg) Influenza Type B (PCR) Negative (Neg) RSV (RT-PCR) Negative (Neg) Administered Medications Discontinued Medications Aspirin (Aspirin Chew 324 Mg) 324 mg PO NOW STA Stop: 09/24/22 08:41 Last Admin: 09/24/22 09:01 Dose: 324 mg Documented By: JORDAN Ceftriaxone Sodium (Rocephin) 2,000 mg in 70 mls @ 140 mls/hr IV NOW STA Stop: 09/24/22 10:17 Last Infusion: 09/24/22 13:25 Dose: 0 mls/hr Documented By: Admin: 09/24/22 11:24 Dose: 140 mls/hr Documented By: JORDAN Azithromycin 500 mg/ Dextrose 255 mls @ 127.5 mls/hr IV NOW STA Stop: 09/24/22 11:47 Last Infusion: 09/24/22 13:25 Dose: 0 mls/hr Documented By: Admin: 09/24/22 11:24 Dose: 127.5 mls/hr Documented By: JORDAN Imaging Data Radiologist's Impression: Chest X-Ray 09/24/22 08:22 XR chest 1V portable CLINICAL HISTORY: Chest pain, nonspecific. Shortness of breath. COMPARISON STUDY: Chest CT August 22, 2019. Chest CT January 09, 2022. FINDINGS: Left subclavian pacer is in place. Moderate cardiomegaly is unchanged. There is no pneumothorax or pleural effusion. There may be subtle interstitial pulmonary edema. A 5.3 cm right upper lung airspace opacity is present. Minimal bibasilar opacities favor atelectasis. IMPRESSION: 1. 5.3 cm right upper lung airspace opacity. This favors a focus of pneumonia. Atypical appearance of alveolar pulmonary edema is within the differential but considered less likely. Radiographic follow-up to ensure resolution is recommended. 2. Cardiomegaly. Possible subtle interstitial pulmonary edema. ACT 112: Negative or not required by law. Electronically signed by: Xu Stiles M.D. 09/24/2022 9:13 AM Discharge Plan Visit Data Chief Complaint: Shortness of Breath/Dyspnea Stated Complaint: SHORTNESS OF BREATH ED Provider: Shree Atkins Discharge Problem: Acute electrocardiogram changes, Breath shortness, Anticoagulant long-term use, Chronic kidney disease, stage 3 (moderate) Discharge Instructions Interventions: ED Discharge Assessment Last Done: 09/24/22 12:12
[2022-09-24] MEDS ORDERED: ASPIRIN CHEW 324 MG PO STA (08:40)
[2022-09-24 08:47] LABS: Basophils # (auto) 0.03 K/uL (0-0.2); Basophils % (auto) 0.3 %; Eosinophils # (auto) 0.09 K/uL (0-0.50); Eosinophils % (auto) 0.8 %; Hematocrit (blood only) 37.2 % (40.1-51.0); Hemoglobin 12.7 g/dl (14.0-18.0); Immature Granulocytes # (auto) 0.03 K/uL (0.00-0.02); Immature Granulocytes % (auto) 0.3 %; Lymphocytes # (auto) 0.96 K/uL (1.2-3.4); Lymphocytes % (auto) 8.9 %; Mean Corpuscular Hemoglobin 30.6 pg (25.0-34.0); Mean Corpuscular Hgb Conc 34.1 g/dL (32.0-36.0); Mean Corpuscular Volume 89.6 fL (80.0-100.0); Mean Platelet Volume 11.7 fL (9.4-12.4); Monocytes # (auto) 1.43 K/uL (0.24-0.82); Monocytes % (auto) 13.2 %; Neutrophils # (auto) 8.28 K/uL (1.4-6.5); Neutrophils % (auto) 76.5 %; Platelet Count 208 K/uL (130-400); RDW Coefficient of Variation 14.3 % (11.5-14.5); RDW Standard Deviation 47.2 fL (36.4-46.3); Red Blood Count 4.15 M/uL (4.63-6.08); White Blood Count 10.82 K/ul (4.8-10.8)
--- NOTE | 2022-09-24 09:14 | XRay Report ---
XR chest 1V portable CLINICAL HISTORY: Chest pain, nonspecific. Shortness of breath. COMPARISON STUDY: Chest CT August 22, 2019. Chest CT January 09, 2022. FINDINGS: Left subclavian pacer is in place. Moderate cardiomegaly is unchanged. There is no pneumoth orax or pleural effusion. There may be subtle interstitial pulmonary edema. A 5.3 cm right upper lung airspace opacity is present. Minimal bibasilar opacities favor atelectasis. IMPRESSION: 1. 5.3 cm right upper lung airspace opacity. This favors a focus of pneumonia. Atypical appearance of alveolar pulmonary edema is within the differential but considered less likely. Radiographic follow- up to ensure resolution is recommended. 2. Cardiomegaly. Possible subtle interstitial pulmonary edema. ACT 112: Negative or not required by law. Electronically signed by: Xu Stiles M.D. 09/24/2022 9:13 AM
[2022-09-24 09:27] LABS: Troponin I High Sensitivity 16.1 pg/ml (0-20)
[2022-09-24 09:33] LABS: Influenza A virus by PCR Negative (Neg); Influenza B virus by PCR Negative (Neg); RSV by PCR Negative (Neg); SARS CoV2 RNA(COVID-19) Ceph NEGATIVE (Negative)
[2022-09-24 09:34] LABS: Albumin Globulin Ratio 1.3 (0.9-2); Albumin Level 4.2 gm/dl (3.4-5.0); BUN Creatinine Ratio 24.7 (10-20); Bilirubin,Total 0.8 mg/dl (0.2-1.0); Calcium 9.3 mg/dl (8.5-10.1); Creatinine Clr Calc Pharmacy 26.6 ml/min; Est GFR (African American) 36.6 ml/min; Est GFR (Non-African American) 31.6 ml/min; Globulin 3.3 gm/dl (2.5-4.0); Potassium 3.8 mmol/L (3.5-5.1); Total Protein 7.5 gm/dl (6.0-8.3)
[2022-09-24] MEDS ORDERED: AZITHROMYCIN 500 MG in DEXTROSE 5% 250 ML IV STA (09:48)
[2022-09-24] MEDS ORDERED: cefTRIAXone SODIUM 2,000 MG/70 ML BAG IV STA (09:48)
--- NOTE | 2022-09-24 10:24 | History & Physical Report ---
Date of Service September 24, 2022 Assessment & Plan (1) Shortness of breath: Plan: - Differential at this point includes CHF exacerbation versus pneumonia, patient short of breath at all times, without any wheezing, URI symptoms but also without any weight gain, edema on exam, orthopnea, PND. - CXR: 5.3 cm right upper lung airspace opacity. This favors a focus of pneumonia. Atypical appearance of alveolar pulmonary edema is within the differential but considered less likely. Cardiomegaly. Possible subtle interstitial pulmonary edema. - WBC 10.8, have added on procalcitonin. His BNP is up at 837 favoring CHF exacerbation. - Initially doing well on room air, however became hypoxic 87% at one point, now on 2 L NC, does not have an oxygen requirement at home. - He was started on Rocephin and azithromycin in ED for possible community- acquired pneumonia, procal 0.11. - Order chest CT for further clarification, for now will treat as CAP with Rocephin+ Doxy (Qtc 506). - He is on 120 mg Lasix daily, but has been taking 160 mg over the past few days for his SOB. Do not feel IV diuresis is required at this point, will continue to watch volume status and renal function with high dose Lasix. - Have added on duonebs schedules/prn, incentive spirometry/flutter valve. (2) ST segment changes on electrocardiogram: Plan: - There are new ST segment depressions and T wave inversions in leads V4 through V6 on EKG, new compared to EKG from December of this year. - Initial trop 16.1, rpeat 15.8. - Patient received full dose aspirin in ED. - He is not complaining of any chest pain, pressure, tightness, palpitations. - Will update echo. As his troponin is downtrending and he is chest pain free, recommend he follow up with cardiology as an outpatient - Has presumed CAD. - 2016 Stress echocardiogram showed no ischemia at 7 minutes an 88 % maximum predicted heart rate. No chest pain, ECG was uninterpretable due to LVH with repolarization abnormality, echo showed normal LV systolic function at baseline with augmentation post exercise. (3) Severe pulmonary hypertension: Plan: - Echo October 2021: Severe pulm hypertension, moderate tricuspid regurg, moderately dilated IVC - Uses CPAP at night which he feels is helpful with his breathing and heart failure. (4) Chronic diastolic congestive heart failure: Plan: - Echo 11/12: EF 50-55%, left ventricular systolic function low normal, no regional WMA, RV mildly dilated, RV systolic function normal, severe pulmonary hypertension and moderately dilated IVC, moderate tricuspid regurg. - Continue Lasix 120 mg daily. - Low-sodium diet, 1800 cc fluid restriction. - Dry weight 157-158 pounds. - Daily standing weights. (5) COPD (chronic obstructive pulmonary disease): Plan: - Continues to use CPAP at night but is no longer using any inhalers. - No O2 requirement at home. - Follows with pulmonology; former smoker. (6) Permanent atrial fibrillation: Plan: - S/p single-chamber pacer placement 2010. - Continue Pradaxa. (7) Chronic kidney disease, stage 3 (moderate): Plan: - Atrophic L kidney and stenosis of the accessory R renal artery - s/p angioplasty and stenting of the L main renal artery and the R accessory renal artery. - Creatinine 1.8, baseline 1.72.1. - Electrolytes all within normal limits. - Renally dose medications as able, avoid nephrotoxins. (8) Parkinson's disease: Plan: - Continue Sinemet. (9) PAD (peripheral artery disease): Plan: - Continue simvastatin and ezetimibe, Plavix. - Encourage ambulation. (10) Hypertension: Plan: - Continue amlodipine, clonidine. (11) Hypothyroidism: Plan: - Continue levothyroxine. (12) Anemia: Plan: - Secondary to CKD, is at baseline. Monitor. (13) Apnea, sleep: Plan: - CPAP at night. Plan - Admit to medicine with telemetry. - SCDs, Pradaxa to be continued for VTE PPx. - DNR/DNI. History of Present Illness Chief Complaint: Shortness of breath x3 to 4 days Primary Care Provider: Chavez Young MD Jimi Ramsay is an 86-year-old male with a past medical history significant for permanent A. fib with pacemaker, HFpEF, PAD, hypertension, severe pulmonary hypertension, CKD, Parkinson's, is presenting today with 3-4 days of shortness of breath. He has not noticed any cough, nasal or sinus congestion, fever/chills, body aches, fatigue. Dry weight reported 157-158 pounds, patient has not gained more than a pound or 2 over the past several days. He did increase his Lasix from 120 mg to 160 mg without any alleviation. Shortness of breath is not better or worse with lying flat, and is present at all times, both at rest and with activity. He is not complaining of any associated chest pain, pressure, tightness or palpitations. Denies abdominal pain, nausea, vomiting. On presentation, SPO2 initially >90% on room air, however with transient dip to 87%, now 2 L NC. Otherwise vital signs are within normal limits and stable. Labs notable for WBC of 10.82, Hgb 12.7 which is about his baseline, MCV 89. Creatinine 1.86, baseline 1.72.1. BNP 837. Troponin 16.1. No electrolyte abnormalities. COVID/flu/RSV negative. CXR showed cardiomegaly and possible subtle interstitial pulmonary edema, as well as a 5.3 cm right upper lung airspace opacity favoring pneumonia versus pulmonary edema. Allergies Allergy/AdvReac Type Severity Reaction Status Date / Time hydralazine AdvReac Severe anorexia,h/ Verified 08/27/22 14:25 a,nausea,pa lpitations Home Medications Medication Instructions Recorded Confirmed Type calcium carbonate 500 mg-vitamin 1 tab PO QDL 06/01/18 08/27/22 History D3 5 mcg (200 unit) tablet (Calcium 500 + D) CPAP Machine #10 ea 07/13/19 08/27/22 Rx CPAP Machine #1 ea 04/24/20 08/27/22 Rx nitroglycerin 0.4 mg sublingual 0.4 mg buccal UD PRN Chest Pain 01/08/21 09/24/22 Rx tablet (Nitrostat) #25 tabs levothyroxine 100 mcg tablet 100 mcg PO QAM #90 tabs 02/11/22 09/24/22 Rx clopidogrel 75 mg tablet 75 mg PO QAM #90 tabs 05/01/22 09/24/22 Rx potassium chloride 20 mEq 20 meq PO DAILY #90 tabs 05/06/22 09/24/22 Rx tablet,extended release allopurinol 100 mg tablet 200 mg PO QAM #180 tabs 06/30/22 09/24/22 Rx amlodipine 10 mg tablet 10 mg PO QAM #90 tabs 06/30/22 09/24/22 Rx clonidine HCl 0.2 mg tablet 0.2 mg PO TID #540 tabs 06/30/22 09/24/22 Rx furosemide 40 mg tablet 120 mg PO QAM #270 tabs 06/30/22 09/24/22 Rx dabigatran etexilate 75 mg capsule 75 mg PO BID #180 caps 07/28/22 09/24/22 Rx ezetimibe 10 mg-simvastatin 20 mg 1 tab PO HS #90 tabs 07/28/22 09/24/22 Rx tablet carbidopa 25 mg-levodopa 100 mg 1 tab PO TID 90 days #270 tabs 08/27/22 09/24/22 Rx tablet Past Med/Surg History Medical History Anticoagulant long-term use Carotid artery stenosis Chronic constipation Chronic kidney disease, stage 3 (moderate) Dyslipidemia Former smoker GERD (gastroesophageal reflux disease) Gout History of DVT (deep vein thrombosis) HTN (hypertension) Hypothyroid Pacemaker (01/2021) Parkinson's disease Permanent atrial fibrillation Pleural effusion Subdural hematoma (2006) Surgical History H/O vasectomy History of appendectomy History of renal stent (2006) Right History of renal stent (2008) Left Hx of tonsillectomy S/P carotid endarterectomy (1994) S/P insertion of inferior vena caval filter Family History Father Diabetes Denies family history of Ovarian cancer Prostate cancer Myocardial infarction Breast cancer Lung cancer Colorectal cancer Stroke Social History Smoking Status: Former smoker Age Started Using Tobacco: 12; Age Quit Using Tobacco: 53; packs per day: 1; Cigarettes Per Day: 20; Second Hand Exposure: No; Do You Dip or Chew Tobacco: No; Tobacco Cessation Education Requested by Patient: No Hx Alcohol Use: Yes Alcohol type: beer Hx Substance Use: No Preferred Language: Greek Communication Ability: Effective Visual Impairment: No Limitations Hearing Ability: Normal Waistline Joiner Required: No Beliefs That Will Affect Care: None marital status: Current Living Situation: Spouse Current Living Situation Comment: from home current occupational status: retired Other Information That Helps Us Care for You: No Feels Safe at Home: Yes Safety Concerns: Feels Safe At This Time Childhood Exposure to Second-Hand Smoke: Yes during the past year weight has: remained stable Physical Activity Frequency: Daily Physical Activity Frequency Comment: walks a mile every day in nice weather Seatbelt Use: always Assistive Devices: CPAP Review of Systems Review of Systems: Constitutional: No fever/chills, weakness, fatigue, myalgias, anorexia, night sweats Eyes: No diplopia, no worsening or blurred vision ENT: normal hearing, no trouble swallowing Respiratory: 3-4 days constant SOB, no cough or sputum production Cardiovascular: No chest pain, tightness or palpitations Abdomen: No pain, nausea, vomiting, diarrhea or constipation : Denies dysuria, hematuria, increased urgency/frequency, urinary retention Musculoskeletal: No joint pain, calf pain, swelling Neurologic: No weakness, numbness/tingling, or balance problems Psychiatric: No anxiety or depression Skin: No rash or itch Physical Exam Physical Exam: General: awake, alert, no apparent distress Head: Normocephalic, atraumatic ENT: PERRL, EOMI, no pharyngeal exudate, mucous membranes moist Chest: Clear to auscultation, on room air, no adventitious breath sounds Cardiac: Regular rate and rhythm, no murmur, no JVD, normal peripheral pulses, good capillary refill Abdominal: NABS x 4 quadrants, soft, nontender to palpation, no rebound, guarding or tenderness Extremities: Normal inspection, no peripheral edema or erythema, calfs nontender to palpation Psych: Normal mood and affect Neuro: AAO x 3, strength intact bilaterally and rated 5/5, no motor deficits, speech is clear, no peripheral sensory deficits Skin: no rash or erythema Results & Data Results & Data ([facility]) Vital Signs (Past 12 Hours) Vital Signs Temp Pulse Resp BP Pulse Ox O2 Del Method O2 Flow Rate 09/24/22 09:49 93 Nasal Cannula 2 09/24/22 09:49 87 L Room Air 09/24/22 08:55 95 Room Air 09/24/22 08:55 95 Room Air 09/24/22 08:21 36.8 C 87 18 145/74 H 94 Room Air 09/24/22 08:21 Room Air Laboratory Results Abnormal lab results 09/24/22 09/24/2223 Range/Units 08:32 08:32 08:32 WBC 10.82 H (4.8-10.8) K/ul RBC 4.15 L (4.63-6.08) M/uL Hgb 12.7 L (14.0-18.0) g/dl Hct 37.2 L (40.1-51.0) % RDW Std Deviation 47.2 H (36.4-46.3) fL Neut # (Auto) 8.28 H (1.4-6.5) K/uL Lymph # (Auto) 0.96 L (1.2-3.4) K/uL [place] # (Auto) 1.43 H (0.24-0.82) K/uL Immature Gran # (Auto) 0.03 H (0.00-0.02) K/uL BUN 46 H (6-23) mg/dl Creatinine 1.86 H (0.6-1.4) mg/dl BUN/Creatinine Ratio 24.7 H (10-20) Glucose 197 H (70-99(Fasting)) mg/dl ALT 4 L (7-52) U/L B-Natriuretic Peptide 837 H (0-100) pg/ml Diagnostic Findings Chest X-Ray 09/24/22 08:22 XR chest 1V portable CLINICAL HISTORY: Chest pain, nonspecific. Shortness of breath. COMPARISON STUDY: Chest CT August 22, 2019. Chest CT January 09, 2022. FINDINGS: Left subclavian pacer is in place. Moderate cardiomegaly is unchanged. There is no pneumothorax or pleural effusion. There may be subtle interstitial pulmonary edema. A 5.3 cm right upper lung airspace opacity is present. Minimal bibasilar opacities favor atelectasis. IMPRESSION: 1. 5.3 cm right upper lung airspace opacity. This favors a focus of pneumonia. Atypical appearance of alveolar pulmonary edema is within the differential but considered less likely. Radiographic follow-up to ensure resolution is recommended. 2. Cardiomegaly. Possible subtle interstitial pulmonary edema. ACT 112: Negative or not required by law. Electronically signed by: Xu Stiles M.D. 09/24/2022 9:13 AM ECG Additional Comments: Suspect unspecified pacemaker failure Undetermined rhythm Marked ST abnormality, possible inferior subendocardial injury Prolonged QT Abnormal ECG When compared with ECG of 09-JAN-2022 06:58, Current undetermined rhythm precludes rhythm comparison, needs review Code Status & VTE Plan Code Status DNR/DNI. Supervising Physician Co-Signing Physician Notes Patient seen and examined, chart reviewed, case discussed with Misty tSern PA-C and I agree with the assessment and plan as above except as otherwise noted Labs and images reviewed Jimi is a 86-year-old male with a past medical history of severe COPD, moderate tricuspid regurg, moderate mitral regurg, carotid artery stenosis, CKD 3, Parkinson's, dyslipidemia, GERD, permanent atrial fibrillation with pacemaker in place, heart failure with preserved ejection fraction, hypothyroidism, hypertension, impaired fasting glucose who presented this morning with shortness of breath worsening over the last 3 to 4 days.Has had CHF exacerbations in the past with a base weight of around 160 pounds, has not had weight gain associated with the shortness of breath. Seen at bedside, patient reports that he has not had chest pain at any point. He has had increased shortness of breath for at least 3 days, has not noted sign ificant weight gain with this. Denies fever, chills, sweats. Does have an intermittent cough not significantly different from his baseline with slight sputum production. No night sweats. No wheezing.Denies orthopnea, denies increased leg edema. No sinus congestion. Did take his meds this morning including his blood thinners. Has not noticed his heart racing, denies syncope/presyncope EKG: Normal sinus rhythm, ST depressions V4V6 with T wave inversions new from prior Leukocytosis new, 10.82. Hemoglobin 12.7, near baseline. MCV 89 Sodium normal, potassium normal (3.8). Baseline creatinine 1.72.01, admitting creatinine 1.86 BNP 837, last for 65 COVID-negative, flu negative, RSV negative High-sensitivity troponin normal on admission at 16.1, 2-hour repeat pending CXR: 5.3 cm right upper lung opacity favoring pneumonia, differential includes pulmonary edema but less likely. Cardiomegaly. Possible subtle interstitial pulmonary edema 05/07/2022: FVC 2.76 (84%), FEV1 1.68 (75%), FEV1/FVC 60.65 (86%), DLCO 54%p. Mild airflow obstruction without bronchodilator response, lung volumes lower limits of normal and diffusion capacity reduced. Acute hypoxic respiratory failure: 86-year-old male with a history of severe COPD, heart failure with preserved ejection fraction EF 50-55% 10/2021 who presents with 3 to 4 days of shortness of breath without chest pain. EKG does show evidence of demand ischemia, initial high-sensitivity troponin is negative and patient has not had any anginal/chest pain symptoms. While he has had admissions for acute on chronic CHF before and his BNP is slightly elevated from baseline of 400s up to 800 on admission, does not clinically appear grossly fluid overloaded and CXR is without overt pulmonary edema. Small right-sided opacity suspicious for pneumonia, with procalcitonin pending. Lower suspicion for blood clots given that patient is on Pradaxa and has been compliant with this. Agree with treating empirically as pneumonia, follow Pro-Noe, if clinical uncertainty remains or patient is not clinically improving can follow-up with CT at that point. 2-hour troponin is trending, no signs of ACS at this time. Agree with chronic issue management as above. Renal function is at baseline on admission. PG Care Time/CCT Total # of Minutes Spent Total Time Spent with Patient: Total time spent is greater than 50% in coordination of care (as documented) at patient's floor/unit and/or counseling patient: Coding Level of Care Code 66915 INT INP/OBS CARE 375MIN Diagnoses Shortness of breath R06.02 ST segment changes on electrocardiogram R94.31 Severe pulmonary hypertension I27.20 Chronic diastolic congestive heart failure I50.32 COPD (chronic obstructive pulmonary disease) J44.9 Permanent atrial fibrillation I48.21 Chronic kidney disease, stage 3 (moderate) N18.3 Parkinson's disease G20 PAD (peripheral artery disease) I73.9 Hypertension I10 Hypothyroidism E03.9 Anemia D64.9 Apnea, sleep G47.33 Sleep apnea type: obstructive (1) Apnea, sleep Sleep apnea type: obstructive Qualified Code(s): G47.33 - Obstructive sleep apnea (adult) (pediatric)
[2022-09-24] MEDS ORDERED: NITROGLYCERIN SL 0.4 MG/TAB TAB SL PRN (12:11)
[2022-09-24] MEDS ORDERED: ALBUT/IPRATROP 3MG/0.5MG NEB 3 ML VIAL NEB PRN (12:11)
[2022-09-24] MEDS ORDERED: ALUMINUM/MAGNESIUM SUSP 30 ML UDC PO PRN (12:11)
--- NOTE | 2022-09-24 13:51 | XCELERA ---
[id number]
[2022-09-24] MEDS: cloNIDine HCL 0.1 MG TAB PO SCH ×2 (14:59→20:27)
[2022-09-24] MEDS: CALCIUM 600MG + VIT D 400 IU TAB PO SCH (14:59)
--- NOTE | 2022-09-24 15:06 | Electrocardiogram Report ---
Test Reason : Blood Pressure : / mmHG Vent. Rate : 071 BPM Atrial Rate : 088 BPM P-R Int : 000 ms QRS Dur : 086 ms QT Int : 466 ms P-R-T Axes : 078 034 -81 degrees QTc Int : 506 ms Atrial fibrillation ventricular-paced complexes Marked ST abnormality, possible inferior subendocardial injury Prolonged QT Abnormal ECG When compared with ECG of 09-JAN-2022 06:58, No significant change Confirmed by Chavez Weiss ([id number]) on 09/24/2022 3:06:19 PM Referred By: Confirmed By:Chavez Weiss
[2022-09-24] MEDS: ALBUT/IPRATROP 3MG/0.5MG NEB 3 ML VIAL INH SCH ×2 (15:14→17:51)
[2022-09-24] MEDS: CARBIDOPA/LEVODOPA 25/100MG TAB PO SCH ×2 (15:32→20:28)
--- NOTE | 2022-09-24 16:35 | CT Scan Report ---
CT OF THE CHEST WITHOUT IV CONTRAST CLINICAL HISTORY: Hypoxia. Shortness of breath. COMPARISON STUDY: Chest CT August 22, 2019 and chest radiograph September 24, 2022. CT DOSE: 523.16 mGy.cm TECHNIQUE: Axial images of the chest were obtained without IV contrast. Images were reviewed in the axial, sagittal, and coronal planes. IV contrast was not administered for this examination. Automat ed exposure control was utilized for the study. A dose lowering technique was utilized adhering to t he principles of ALARA. FINDINGS: Left subclavian pacer is in place. Moderate cardiomegaly and coronary artery calcification is present. Mild dilatation of the central pulmonary arteries is unchanged. There is no pericardial effusion. No pneumothorax is present. Small right and trace left pleural effusions. Interlobular sept al thickening indicates interstitial pulmonary edema. In addition, there are scattered alveolar opaci ties, greatest within the right upper lobe. No lobar consolidation is present. Lungs are suboptimally assessed due to respiratory motion. Mildly enlarged mediastinal and bilateral hilar lymph nodes are similar to chest CT of August 22, 2019. IMPRESSION: 1. Cardiomegaly with interstitial pulmonary edema. Scattered alveolar opacities, greatest within the right upper lobe. These could reflect alveolar pulmonary edema or superimposed pneumonia. 2. Small right and trace left pleural effusions. ACT 112: Negative or not required by law. Electronically signed by: Xu Stiles M.D. 09/24/2022 4:34 PM
[2022-09-24] MEDS: EZETIMIBE/SIMVASTATIN 10/20 TAB PO SCH (20:28)
[2022-09-24] MEDS: DABIGATRAN ETEXILATE 75 MG CAP PO SCH (20:28)
[2022-09-24] MEDS: DOXYCYCLINE HYCLATE 100 MG in DEXTROSE 5% 100 ML IV SCH (21:01)
[2022-09-25] MEDS: ALBUT/IPRATROP 3MG/0.5MG NEB 3 ML VIAL INH SCH ×4 (00:25→19:24)
[2022-09-25] MEDS: LEVOTHYROXINE SODIUM 100 MCG TABLET PO SCH (05:53)
[2022-09-25 07:03] LABS: Basophils # (auto) 0.02 K/uL (0-0.2); Basophils % (auto) 0.2 %; Eosinophils # (auto) 0.17 K/uL (0-0.50); Eosinophils % (auto) 1.8 %; Hematocrit (blood only) 34.6 % (40.1-51.0); Hemoglobin 11.6 g/dl (14.0-18.0); Immature Granulocytes # (auto) 0.02 K/uL (0.00-0.02); Immature Granulocytes % (auto) 0.2 %; Lymphocytes # (auto) 0.92 K/uL (1.2-3.4); Lymphocytes % (auto) 9.8 %; Mean Corpuscular Hemoglobin 30.7 pg (25.0-34.0); Mean Corpuscular Hgb Conc 33.5 g/dL (32.0-36.0); Mean Corpuscular Volume 91.5 fL (80.0-100.0); Mean Platelet Volume 11.4 fL (9.4-12.4); Monocytes # (auto) 1.55 K/uL (0.24-0.82); Monocytes % (auto) 16.5 %; Neutrophils # (auto) 6.72 K/uL (1.4-6.5); Neutrophils % (auto) 71.5 %; Platelet Count 193 K/uL (130-400); RDW Coefficient of Variation 14.4 % (11.5-14.5); RDW Standard Deviation 48.4 fL (36.4-46.3); Red Blood Count 3.78 M/uL (4.63-6.08)
[2022-09-25 07:35] LABS: BUN Creatinine Ratio 22.5 (10-20); Calcium 8.7 mg/dl (8.5-10.1); Creatinine Clr Calc Pharmacy 27.1 ml/min; Est GFR (African American) 37.6 ml/min; Est GFR (Non-African American) 32.4 ml/min; Magnesium 2.3 mg/dl (1.7-2.4)
[2022-09-25] MEDS: CLOPIDOGREL BISULFATE 75 MG TAB PO SCH (07:50)
[2022-09-25] MEDS: POTASSIUM CHLORIDE CRTAB 20 MEQ TABCR PO SCH (07:50)
[2022-09-25] MEDS: DABIGATRAN ETEXILATE 75 MG CAP PO SCH ×2 (07:50→21:26)
[2022-09-25] MEDS: allopurinoL 100 MG TAB PO SCH (07:50)
[2022-09-25] MEDS: CARBIDOPA/LEVODOPA 25/100MG TAB PO SCH ×3 (07:50→21:26)
[2022-09-25] MEDS: cefTRIAXone SODIUM 1,000 MG in DEXTROSE 5% AD-VAN 50 ML IV SCH (07:51)
[2022-09-25] MEDS: amLODIPine BESYLATE 5 MG TAB PO SCH (07:51)
[2022-09-25] MEDS: cloNIDine HCL 0.1 MG TAB PO SCH ×3 (07:51→21:28)
[2022-09-25] MEDS: DOXYCYCLINE HYCLATE 100 MG in DEXTROSE 5% 100 ML IV SCH ×2 (08:50→21:24)
[2022-09-25] MEDS ORDERED: PNEUMOCOCCAL Polysaccharide Vaccine 25mcg/0.5mL vial/Syr IM ONE (09:00)
[2022-09-25] MEDS ORDERED: FUROSEMIDE 40 MG TAB PO SCH (09:00)
[2022-09-25] MEDS: CALCIUM 600MG + VIT D 400 IU TAB PO SCH (12:12)
[2022-09-25] MEDS ORDERED: BUMETANIDE 1 MG TAB PO ONE (19:03)
--- NOTE | 2022-09-25 21:19 | Hospitalist Progress Note ---
Date of Service September 25, 2022 Assessment & Plan (1) Chronic diastolic congestive heart failure: Plan: Echo 11/12: EF 50-55%, left ventricular systolic function low normal, no regional WMA, RV mildly dilated, RV systolic function normal, severe pulmonary hypertension and moderately dilated IVC, moderate tricuspid regurg. Echo this admission largely unchanged His weight is about 4-5 pounds above dry weight -- may have mild acute/chronic HFpEF will give additional diuretic this afternoon - give bumex 2mg po x 1 re-eval tomorrow with serial exam & labs if he has a better response with bumex consider changing lasix to bumex given his advanced CKD daily weights, etc (2) Pneumonia: Plan: RUL? Cont rocephin/doxy for now. Consider repeat CXR tomorrow. Check a crp in am. again it is uncertain if #3 is due to CHF or pneumonia or both. (3) Shortness of breath: Plan: acute/chronic HFpEF vs pneumonia vs both appetite is wnl, minimal cough, etc - which would argue against an infectious process with that said he has fairly focal lung findings in the right lung that may represent pneumonia cont diuresis cont rocephin/doxy re-eval tomorrow (4) ST segment changes on electrocardiogram: Plan: inferior ST changes but NO ischemic symptoms and troponins negative he has presumed CAD (numerous CAD risk factors, etc) but no cath to definitively diagnose such cont plavix cont simvastatin/zetia monitor (5) Severe pulmonary hypertension: Plan: cont night-time CPAP at discharge will assess for ambulatory O2 needs given the severity of his pul HTN (6) COPD (chronic obstructive pulmonary disease): Plan: no exacerbation at this time (7) Permanent atrial fibrillation: Plan: S/p single-chamber pacer placement 2010. Continue Pradaxa 75mg BID. Is not on BB or CCB therapy at baseline. (8) Parkinson's disease: Plan: Continue Sinemet. (9) PAD (peripheral artery disease): Plan: Continue simvastatin and ezetimibe, Plavix. (10) Hypertension: Plan: Continue amlodipine, clonidine. Controlled. (11) Hypothyroidism: Plan: Continue levothyroxine. TSH earlier in 2021 wnl. (12) Anemia: Plan: Mild Secondary to CKD (13) Apnea, sleep: Plan: CPAP at night. Encouraged him to have a family member bring home unit in. Otherwise can use hospital issued CPAP. (14) Chronic kidney disease, stage IV (severe): Plan: baseline CrCl 20s repeat BMP in am due to extra diuretics given today and for stability purposes Plan will need PT/OT while here Admission and Anticipated Discharge Date Admission Date: September 24, 2022 Subjective patient resting in bed comfortably states his dyspnea is unchanged from yesterday appetite is about normal denies feeling ill or sick states dry weight is about 158-160 pounds mild cough - no sputum no chest pain tele overnight with pacing patient states he had been taking more lasix at home prior to coming to hospital and noticed no change in his breathing with such he is NOT on O2 at home but does use HS CPAP he does not have his home unit with him Review of Systems Review of Systems: gen - no fevers or chills cv - no cp pulm - no dyspnea at rest; dyspnea is mainly with exertion GI - no nausea or emesis Physical Exam Physical Exam: gen - NAD, pleasant, not sickly neck - JVD present mouth - MMM heart - RRR, s1 s1 lungs - b/l basilar rales (mild at best); otherwise CTA b/l, no increased work of breathing abd - soft NT ND BS+ ext - no edema, pulses 2+ b/l psych - a/o x 3 Results & Data Results & Data ([facility]) Vital Signs (Past 12 Hours) Vital Signs Temp Pulse Pulse Resp BP Pulse Ox O2 Del Method 09/25/22 19:27 68 18 94 Nasal Cannula 09/25/22 18:40 37.0 C 68 18 151/57 H 93 Nasal Cannula 09/25/22 15:08 37.1 C 70 19 125/64 93 Nasal Cannula 09/25/22 15:01 66 09/25/22 13:06 61 18 93 Nasal Cannula 09/25/22 11:13 57 L 19 125/57 L 92 Nasal Cannula O2 Flow Rate 09/25/22 19:27 4 09/25/22 18:40 5 09/25/22 15:08 5 09/25/22 15:01 09/25/22 13:06 6 09/25/22 11:13 5 Laboratory Results Laboratory Results - last 24 hr 09/25/22 09/25/22 06:40 06:40 WBC 9.40 RBC 3.78 L Hgb 11.6 L Hct 34.6 L MCV 91.5 MCH 30.7 MCHC 33.5 RDW Std Deviation 48.4 H RDW Coeff of [place] 14.4 Plt Count 193 MPV 11.4 Immature Gran % (Auto) 0.2 Neut % (Auto) 71.5 Lymph % (Auto) 9.8 [place] % (Auto) 16.5 Eos % (Auto) 1.8 Baso % (Auto) 0.2 Neut # (Auto) 6.72 H Lymph # (Auto) 0.92 L [place] # (Auto) 1.55 H Eos # (Auto) 0.17 Baso # (Auto) 0.02 Immature Gran # (Auto) 0.02 Sodium 137 Potassium 4.0 Chloride 102 Carbon Dioxide 27 Anion Gap 8 BUN 41 H Creatinine 1.82 H Est Cr Clr Drug Dosing 27.1 Est GFR ( Amer) 37.6 Est GFR (Non-Af Amer) 32.4 BUN/Creatinine Ratio 22.5 H Glucose 132 H Calcium 8.7 Magnesium 2.3 PG Care Time/CCT Total # of Minutes Spent Total Time Spent with Patient: Total time spent is greater than 50% in coordination of care (as documented) at patient's floor/unit and/or counseling patient: Coding Level of Care Code 84451 SUB INP/OBS CARE 2/35MIN Diagnoses Chronic diastolic congestive heart failure I50.32 Pneumonia J18.[address] of [address] segment changes on electrocardiogram R94.31 Severe pulmonary hypertension I27.20 COPD (chronic obstructive pulmonary disease) J44.9 Permanent atrial fibrillation I48.21 Parkinson's disease G20 PAD (peripheral artery disease) I73.9 Hypertension I10 Hypothyroidism E03.9 Anemia D64.9 Apnea, sleep G47.33 Sleep apnea type: obstructive Chronic kidney disease, stage IV (severe) N18.4 (1) Apnea, sleep Sleep apnea type: obstructive Qualified Code(s): G47.33 - Obstructive sleep apnea (adult) (pediatric)
[2022-09-25] MEDS: ACETAMINOPHEN 325 MG TAB PO PRN (21:24)
[2022-09-25] MEDS: EZETIMIBE/SIMVASTATIN 10/20 TAB PO SCH (21:25)
[2022-09-26] MEDS: ALBUT/IPRATROP 3MG/0.5MG NEB 3 ML VIAL INH SCH ×4 (00:08→20:22)
[2022-09-26] MEDS: LEVOTHYROXINE SODIUM 100 MCG TABLET PO SCH (05:50)
[2022-09-26 06:51] LABS: BUN Creatinine Ratio 21.5 (10-20); C Reactive Protein 12.87 mg/dl (0-0.5); Calcium 8.7 mg/dl (8.5-10.1); Creatinine Clr Calc Pharmacy 26.6 ml/min; Est GFR (African American) 36.6 ml/min; Est GFR (Non-African American) 31.6 ml/min; Potassium 3.7 mmol/L (3.5-5.1)
[2022-09-26] MEDS: allopurinoL 100 MG TAB PO SCH (08:04)
[2022-09-26] MEDS: DABIGATRAN ETEXILATE 75 MG CAP PO SCH ×2 (08:04→21:56)
[2022-09-26] MEDS: CLOPIDOGREL BISULFATE 75 MG TAB PO SCH (08:04)
[2022-09-26] MEDS: CARBIDOPA/LEVODOPA 25/100MG TAB PO SCH ×3 (08:05→21:56)
[2022-09-26] MEDS: amLODIPine BESYLATE 5 MG TAB PO SCH (08:05)
[2022-09-26] MEDS: cefTRIAXone SODIUM 1,000 MG in DEXTROSE 5% AD-VAN 50 ML IV SCH (08:06)
[2022-09-26] MEDS: cloNIDine HCL 0.1 MG TAB PO SCH ×3 (08:06→21:56)
[2022-09-26] MEDS: POTASSIUM CHLORIDE CRTAB 20 MEQ TABCR PO SCH (08:06)
[2022-09-26] MEDS: DOXYCYCLINE HYCLATE 100 MG in DEXTROSE 5% 100 ML IV SCH ×2 (08:39→21:55)
[2022-09-26] MEDS ORDERED: BUMETANIDE 1 MG TAB PO ONE ×2 (09:57→16:39)
[2022-09-26] MEDS: CALCIUM 600MG + VIT D 400 IU TAB PO SCH (10:41)
--- NOTE | 2022-09-26 19:53 | Hospitalist Progress Note ---
Date of Service September 26, 2022 Assessment & Plan (1) Chronic diastolic congestive heart failure: Plan: Echo 11/12: EF 50-55%, left ventricular systolic function low normal, no regional WMA, RV mildly dilated, RV systolic function normal, severe pulmonary hypertension and moderately dilated IVC, moderate tricuspid regurg. Echo this admission largely unchanged Likely mild acute/chronic HFpEF plan bumex 3mg this am and 3mg this pm reassess for further diuresis tomorrow (2) Pneumonia: Plan: RUL. Cont rocephin/doxy. Day # 3 of rocephin. Day # 3 of atypical coverage (had 1 dose of zithromax on 09/24, then doxy yesterday and today). CRP elevated c/w infectious process. Clinically stable. (3) Shortness of breath: Plan: acute/chronic HFpEF vs pneumonia vs both -- favor both etiologies contributing to symptoms cont diuresis cont rocephin/doxy cont NC O2 and supportive care (4) ST segment changes on electrocardiogram: Plan: inferior ST changes but NO ischemic symptoms and troponins negative - although he mentioned vague episode of chest pain pre-hospital sometime in the last couple of weeks with that said he walks 2-3 miles EVERY DAY without limiting dyspnea, chest pain, etc. he has presumed CAD (numerous CAD risk factors, etc) but no cath to definitively diagnose such cont plavix cont simvastatin/zetia unfortunately, even if we wanted to perform stress test at this time, this is not ideal timing due to above issues (5) Severe pulmonary hypertension: Plan: cont night-time CPAP at discharge will assess for ambulatory O2 needs given the severity of his pul HTN (6) COPD (chronic obstructive pulmonary disease): Plan: no exacerbation at this time (7) Permanent atrial fibrillation: Plan: S/p single-chamber pacer placement 2010. Continue Pradaxa 75mg BID. Is not on BB or CCB therapy at baseline. (8) Parkinson's disease: Plan: Continue Sinemet. (9) PAD (peripheral artery disease): Plan: Continue simvastatin and ezetimibe, Plavix. (10) Hypertension: Plan: Continue amlodipine, clonidine. Controlled. (11) Hypothyroidism: Plan: Continue levothyroxine. TSH earlier in 2021 wnl. (12) Anemia: Plan: Mild Secondary to CKD stable (13) Apnea, sleep: Plan: CPAP at night. Encouraged him to have a family member bring home unit in. Otherwise can use hospital issued CPAP. (14) Chronic kidney disease, stage IV (severe): Plan: baseline CrCl 20s BMP today stable daily BMP while here (15) NSVT (nonsustained ventricular tachycardia): Plan: recent echo with preserved EF and no LV wall motion abnormalities K wnl Mag wnl monitor for recurrence consider low dose beta lauren Plan PT, OT updated pt's by phone this evening Admission and Anticipated Discharge Date Admission Date: September 24, 2022 Subjective patient eating well had run of NSVT on monitor this am - no symptoms he vaguely mentions he had "Chest pain" at home sometime in the last 1-2 weeks he can't give more details about this he still is requiring NC O2 and still dyspneic with walking but no dyspnea or orthopnea at rest minimal cough no fevers Review of Systems Review of Systems: gen - no fevers/chills cv - see HPI; no palpitations pulm - no dyspnea at rest GI - no abd pain/N/V Physical Exam Physical Exam: gen - NAD, pleasant, looks good neck - JVD - mild mouth - MMM heart - RRR, s1 s2 lungs - minimal b/l rales; otherwise CTA b/l, no increased work of breathing; no wheezing abd - soft NT ND BS+ ext - no edema, pulses 2+ b/l psych - a/o x 3 Results & Data Results & Data ([facility]) Vital Signs (Past 12 Hours) Vital Signs Temp Pulse Pulse Resp BP Pulse Ox O2 Del Method 09/26/22 14:59 93 Nasal Cannula 09/26/22 14:52 68 09/26/22 14:51 37.0 C 70 20 149/67 H 91 Nasal Cannula 09/26/22 13:07 68 18 93 Nasal Cannula 09/26/22 11:23 37.0 C 69 20 148/62 H 92 Nasal Cannula 09/26/22 08:10 Nasal Cannula O2 Flow Rate 09/26/22 14:59 3 09/26/22 14:52 09/26/22 14:51 3 09/26/22 13:07 2 09/26/22 11:23 3 09/26/22 08:10 3 Laboratory Results Laboratory Results - last 24 hr 09/26/22 05:53 Sodium 138 Potassium 3.7 Chloride 103 Carbon Dioxide 27 Anion Gap 8 BUN 40 H Creatinine 1.86 H Est Cr Clr Drug Dosing 26.6 Est GFR ( Amer) 36.6 Est GFR (Non-Af Amer) 31.6 BUN/Creatinine Ratio 21.5 H Glucose 123 H Calcium 8.7 C-Reactive Protein 12.87 H PG Care Time/CCT Total # of Minutes Spent Total Time Spent with Patient: Total time spent is greater than 50% in coordination of care (as documented) at patient's floor/unit and/or counseling patient: Coding Level of Care Code 68656 SUB INP/OBS CARE 3/50MIN Diagnoses Chronic diastolic congestive heart failure I50.32 Pneumonia J18.[address] of [address] segment changes on electrocardiogram R94.31 Severe pulmonary hypertension I27.20 COPD (chronic obstructive pulmonary disease) J44.9 Permanent atrial fibrillation I48.21 Parkinson's disease G20 PAD (peripheral artery disease) I73.9 Hypertension I10 Hypothyroidism E03.9 Anemia D64.9 Apnea, sleep G47.33 Sleep apnea type: obstructive Chronic kidney disease, stage IV (severe) N18.4 NSVT (nonsustained ventricular tachycardia) I47.29 (1) Apnea, sleep Sleep apnea type: obstructive Qualified Code(s): G47.33 - Obstructive sleep apnea (adult) (pediatric)
[2022-09-26] MEDS: EZETIMIBE/SIMVASTATIN 10/20 TAB PO SCH (21:56)
[2022-09-27] MEDS: ALBUT/IPRATROP 3MG/0.5MG NEB 3 ML VIAL INH SCH ×4 (01:36→19:21)
[2022-09-27] MEDS: LEVOTHYROXINE SODIUM 100 MCG TABLET PO SCH (05:58)
[2022-09-27 06:35] LABS: Hematocrit (blood only) 34.9 % (40.1-51.0); Hemoglobin 11.8 g/dl (14.0-18.0); Mean Corpuscular Hgb Conc 33.8 g/dL (32.0-36.0); Mean Corpuscular Volume 91.6 fL (80.0-100.0); Mean Platelet Volume 11.6 fL (9.4-12.4); Platelet Count 218 K/uL (130-400); RDW Coefficient of Variation 14.4 % (11.5-14.5); RDW Standard Deviation 48.5 fL (36.4-46.3); Red Blood Count 3.81 M/uL (4.63-6.08); White Blood Count 8.22 K/ul (4.8-10.8)
[2022-09-27 07:03] LABS: BUN Creatinine Ratio 22.3 (10-20); Calcium 8.8 mg/dl (8.5-10.1); Creatinine Clr Calc Pharmacy 26.8 ml/min; Est GFR (African American) 37.1 ml/min; Potassium 3.8 mmol/L (3.5-5.1)
[2022-09-27] MEDS ORDERED: BUMETANIDE 1 MG TAB PO ONE (08:54)
[2022-09-27] MEDS: CARBIDOPA/LEVODOPA 25/100MG TAB PO SCH ×3 (09:46→21:15)
[2022-09-27] MEDS: cloNIDine HCL 0.1 MG TAB PO SCH ×3 (09:46→22:31)
[2022-09-27] MEDS: POTASSIUM CHLORIDE CRTAB 20 MEQ TABCR PO SCH (09:46)
[2022-09-27] MEDS: amLODIPine BESYLATE 5 MG TAB PO SCH (09:47)
[2022-09-27] MEDS: DABIGATRAN ETEXILATE 75 MG CAP PO SCH ×2 (09:47→21:15)
[2022-09-27] MEDS: CLOPIDOGREL BISULFATE 75 MG TAB PO SCH (09:47)
[2022-09-27] MEDS: allopurinoL 100 MG TAB PO SCH (09:47)
[2022-09-27] MEDS: cefTRIAXone SODIUM 1,000 MG in DEXTROSE 5% AD-VAN 50 ML IV SCH (09:48)
[2022-09-27] MEDS: DOXYCYCLINE HYCLATE 100 MG CAP PO SCH ×2 (10:09→21:16)
[2022-09-27] MEDS: CALCIUM 600MG + VIT D 400 IU TAB PO SCH (12:09)
[2022-09-27] MEDS ORDERED: predniSONE 20 MG TAB PO STA (14:44)
--- NOTE | 2022-09-27 19:15 | Hospitalist Progress Note ---
Date of Service September 27, 2022 Assessment & Plan (1) Chronic diastolic congestive heart failure: Plan: acute/chronic HFpEF - improving weight slowly approaching his baseline dry weight creatinine remains stable he had NO orthopnea during the visit today bumex 3mg po x 1 this am then re-eval tomorrow for further bumex Echo 11/12: EF 50-55%, left ventricular systolic function low normal, no regional WMA, RV mildly dilated, RV systolic function normal, severe pulmonary hypertension and moderately dilated IVC, moderate tricuspid regurg. Echo this admission largely unchanged lasix remains on hold (2) Pneumonia: Plan: RUL. Cont rocephin/doxy. Day # 4 of rocephin. Day # 4 of atypical coverage (had 1 dose of zithromax on 09/24, then doxy yesterday and today). CRP elevated c/w infectious process. Clinically stable. Repeat cxr in am. Recheck CRP in am. Given the location of his pneumonia - speech eval, r/o aspiration. (3) COPD (chronic obstructive pulmonary disease): Plan: with exacerbation patient does have mild wheezing on exam today he is a former heavy smoker PFTs 04/2022 with mild obstruction, poor bronchodilator response due to ongoing cough/wheezing/dyspnea - start prednisone 40mg daily cont scheduled nebs (4) Shortness of breath: Plan: likely combination of both acute/chronic HFpEF and pneumonia along with mild COPD flare slowly improving cont to require NC O2 - wean as tolerated cont diuresis cont rocephin/doxy cont supportive care (5) ST segment changes on electrocardiogram: Plan: inferior ST changes but NO ischemic symptoms and troponins negative - although he mentioned vague episode of chest pain pre-hospital sometime in the last couple of weeks with that said he walks 2-3 miles EVERY DAY without limiting dyspnea, chest kenney n, etc. he has presumed CAD (numerous CAD risk factors, etc) but no cath to definitively diagnose such cont plavix cont simvastatin/zetia unfortunately, even if we wanted to perform stress test at this time, this is not ideal timing due to above issues (acute/chronic CHF, pneumonia, etc) (6) Severe pulmonary hypertension: Plan: cont night-time CPAP at discharge will assess for ambulatory O2 needs given the severity of his pul HTN (7) Permanent atrial fibrillation: Plan: S/p single-chamber pacer placement 2010. Continue Pradaxa 75mg BID. Is not on BB or CCB therapy at baseline. (8) Parkinson's disease: Plan: Continue Sinemet. Will ask speech therapy to eval - r/o dysphagia / aspiration. (9) PAD (peripheral artery disease): Plan: Continue simvastatin and ezetimibe along with Plavix. (10) Hypertension: Plan: Continue amlodipine, clonidine. Most readings acceptable. (11) Hypothyroidism: Plan: Continue levothyroxine. TSH earlier in 2021 wnl. (12) Anemia: Plan: Mild Secondary to CKD stable H/H (13) Apnea, sleep: Plan: CPAP at night. Encouraged him to have a family member bring home unit in. Otherwise can use hospital issued CPAP. (14) Chronic kidney disease, stage IV (severe): Plan: baseline CrCl 20s baseline Cr 1.8 BMP remains stable again today daily BMP while here (15) NSVT (nonsustained ventricular tachycardia): Plan: recent echo with preserved EF and no LV wall motion abnormalities K wnl Mag wnl monitor for recurrence consider low dose beta lauren if he continues with runs of this (16) Anorexia: Plan: 2nd to pneumonia? add boost BID add MVI Plan DVT proph - pradaxa PT, OT evals appreciated; can likely go home at d/c, rehab not needed updated pt's and son at bedside Admission and Anticipated Discharge Date Admission Date: September 24, 2022 Subjective patient was sleeping upon arrival he was lying completely flat in bed while sleeping he awoke easily he complained of ongoing mild dyspnea especially with activity minimal cough no chest pain or chest tightness appetite remains poor at best , son at bedside Review of Systems Review of Systems: gen - no fevers, "feeling good" cv - no cp, no orthopnea, no PND, tele wnl overnight pulm - no sputum production GI - no abd pain, no nausea/emesis Physical Exam Physical Exam: gen - NAD, pleasant, looks good but there is a mild audible wheeze even when we were talking neck - mild JVD present mouth - MMM heart - RRR, s1 s2, 2/6 systolic murmur lungs - mild end-exp wheezing, no rales, no increased work of breathing abd - soft NT ND BS+ ext - no edema, pulses 2+ b/l psych - a/o x 3 Results & Data Results & Data ([facility]) Vital Signs (Past 12 Hours) Vital Signs Temp Pulse Pulse Resp BP Pulse Ox O2 Del Method 09/27/22 18:39 37.0 C 68 18 161/72 H 91 Nasal Cannula 09/27/22 16:01 36.8 C 65 17 151/55 H 94 Room Air 09/27/22 15:01 61 09/27/22 13:07 71 16 91 Nasal Cannula 09/27/22 11:08 37.2 C 69 17 154/62 H 91 Nasal Cannula 09/27/22 08:00 Nasal Cannula 09/27/22 07:33 37.3 C 71 17 157/69 H 92 Nasal Cannula 09/27/22 07:25 61 09/27/22 07:16 63 16 95 CPAP O2 Flow Rate 09/27/22 18:39 3 09/27/22 16:01 09/27/22 15:01 09/27/22 13:07 3 09/27/22 11:08 3 09/27/22 08:00 3 09/27/22 07:33 3 09/27/22 07:25 09/27/22 07:16 6 Laboratory Results Laboratory Results - last 24 hr 09/27/22 09/27/22 05:40 05:40 WBC 8.22 RBC 3.81 L Hgb 11.8 L Hct 34.9 L MCV 91.6 MCH 31.0 MCHC 33.8 RDW Std Deviation 48.5 H RDW Coeff of It[place] 14.4 Plt Count 218 MPV 11.6 Sodium 138 Potassium 3.8 Chloride 102 Carbon Dioxide 27 Anion Gap 9 BUN 41 H Creatinine 1.84 H Est Cr Clr Drug Dosing 26.8 Est GFR ( Amer) 37.1 Est GFR (Non-Af Amer) 32.0 BUN/Creatinine Ratio 22.3 H Glucose 126 H Calcium 8.8 PG Care Time/CCT Total # of Minutes Spent Total Time Spent with Patient: Total time spent is greater than 50% in coordination of care (as documented) at patient's floor/unit and/or counseling patient: Coding Level of Care Code 75891 SUB INP/OBS CARE 3/50MIN Diagnoses Chronic diastolic congestive heart failure I50.32 Pneumonia J18.9 COPD (chronic obstructive pulmonary disease) J44.9 Shortness of breath R06.02 ST segment changes on electrocardiogram R94.31 Severe pulmonary hypertension I27.20 Permanent atrial fibrillation I48.21 Parkinson's disease G20 PAD (peripheral artery disease) I73.9 Hypertension I10 Hypothyroidism E03.9 Anemia D64.9 Apnea, sleep G47.33 Sleep apnea type: obstructive Chronic kidney disease, stage IV (severe) N18.4 NSVT (nonsustained ventricular tachycardia) I47.29 Anorexia R63.0 (1) Apnea, sleep Sleep apnea type: obstructive Qualified Code(s): G47.33 - Obstructive sleep apnea (adult) (pediatric)
[2022-09-27] MEDS: EZETIMIBE/SIMVASTATIN 10/20 TAB PO SCH (21:16)
[2022-09-28] MEDS: ALBUT/IPRATROP 3MG/0.5MG NEB 3 ML VIAL INH SCH ×4 (01:03→19:06)
[2022-09-28] MEDS: LEVOTHYROXINE SODIUM 100 MCG TABLET PO SCH (06:09)
[2022-09-28] MEDS: DABIGATRAN ETEXILATE 75 MG CAP PO SCH ×2 (07:41→20:39)
[2022-09-28] MEDS: CEROVITE ADV FORMULA TAB PO SCH (07:41)
[2022-09-28] MEDS: cloNIDine HCL 0.1 MG TAB PO SCH ×3 (07:41→20:35)
[2022-09-28] MEDS: CLOPIDOGREL BISULFATE 75 MG TAB PO SCH (07:42)
[2022-09-28] MEDS: amLODIPine BESYLATE 5 MG TAB PO SCH (07:42)
[2022-09-28] MEDS: allopurinoL 100 MG TAB PO SCH (07:42)
[2022-09-28 08:28] LABS: BUN Creatinine Ratio 27.2 (10-20); C Reactive Protein 13.86 mg/dl (0-0.5); Calcium 8.9 mg/dl (8.5-10.1); Creatinine Clr Calc Pharmacy 26.8 ml/min; Est GFR (African American) 37.1 ml/min; Potassium 4.4 mmol/L (3.5-5.1)
[2022-09-28] MEDS ORDERED: BUMETANIDE 1 MG TAB PO ONE (08:47)
--- NOTE | 2022-09-28 09:30 | XRay Report ---
XR chest 2V PA/lateral HISTORY: pneumonia/CHF - interval change COMPARISON: Chest CT 09/24/2022. FINDINGS: No pneumothorax. Small right pleural effusion persists. The heart remains mildly enlarged. Right upper and lower lobe airspace opacities have progressed. A few linear densities the left lung b ase remain unchanged. There is left-sided single lead pacemaker. The heart remains enlarged. IMPRESSION: Cardiomegaly with progressive right lung airspace opacities. This could represent asymmetric pulmonar y edema and/or a pneumonia. ACT 112: Negative or not required by law. Electronically signed by: Phi Shaikh M.D. 09/28/2022 9:28 AM
[2022-09-28] MEDS: DOXYCYCLINE HYCLATE 100 MG CAP PO SCH ×2 (09:31→20:39)
[2022-09-28] MEDS: predniSONE 20 MG TAB PO SCH (09:31)
[2022-09-28] MEDS: CARBIDOPA/LEVODOPA 25/100MG TAB PO SCH ×3 (09:32→20:39)
[2022-09-28] MEDS: POTASSIUM CHLORIDE CRTAB 20 MEQ TABCR PO SCH (09:33)
[2022-09-28] MEDS: cefTRIAXone SODIUM 1,000 MG in DEXTROSE 5% AD-VAN 50 ML IV SCH (09:35)
[2022-09-28 11:41] LABS: Adenovirus PCR Not Detected (NotDetected); Bordetella parapertussis PCR Not Detected (NotDetected); Bordetella pertussis PCR Not Detected (NotDetected); Chlamydia pneumoniae PCR Not Detected (NotDetected); Coronavirus 229E PCR Not Detected (NotDetected); Coronavirus CoV-2 (COVID19)PCR Not Detected (NotDetected); Coronavirus HKU1 PCR Not Detected (NotDetected); Coronavirus NL63 PCR Not Detected (NotDetected); Coronavirus OC43PCR Not Detected (NotDetected); Human Metapneumovirus PCR Not Detected (NotDetected); Influenza A PCR Not Detected (NotDetected); Influenza B PCR Not Detected (NotDetected); Mycoplasma pneumoniae PCR Not Detected (NotDetected); Parainfluenza Virus 1 PCR Not Detected (NotDetected); Parainfluenza Virus 2 PCR Not Detected (NotDetected); Parainfluenza Virus 3 PCR Not Detected (NotDetected); Parainfluenza Virus 4 PCR Not Detected (NotDetected); Respiratory Syncytial VirusPCR Not Detected (NotDetected); Rhinovirus/Enterovirus PCR Not Detected (NotDetected)
[2022-09-28] MEDS: CALCIUM 600MG + VIT D 400 IU TAB PO SCH (12:36)
[2022-09-28] MEDS: CEFEPIME 1,000 MG in SYRINGE 0 ML IV SCH (14:32)
--- NOTE | 2022-09-28 20:10 | Hospitalist Progress Note ---
Date of Service September 28, 2022 Assessment & Plan (1) Chronic diastolic congestive heart failure: Plan: acute/chronic HFpEF - improving weight slowly approaching his baseline dry weight creatinine remains stable although BUN starting to rise (some of that could be from prednisone use) bumex 3mg po x 1 this am once again BMP in am Echo 11/12: EF 50-55%, left ventricular systolic function low normal, no regional WMA, RV mildly dilated, RV systolic function normal, severe pulmonary hypertension and moderately dilated IVC, moderate tricuspid regurg. Echo this admission largely unchanged lasix remains on hold for now (2) Pneumonia: Plan: RUL. Now RLL as well as cxr shows WORSENING pneumonia in the R lung. This is despite 5 days each of rocephin/doxy. CRP still high & unchanged. O2 requirement unchanged. He continues to feel short of breath and doesn't feel much improved from baseline. Aspiration?? asked speech therapy to see today - no dysphagia noted. gram negative etiology? other? d/c rocephin --> change to IV cefepime. cont doxy for atypical coverage. checked MRSA swab - negative; defer on MRSA coverage. checked respiratory BioFire -- fully negative. send urine for legionella ag. if he fails to improve over the next 2 days then pulmonary consultation. Cont supportive care. (3) COPD (chronic obstructive pulmonary disease): Plan: with exacerbation PFTs 2021 with mild obstruction, poor bronchodilator response due to ongoing cough/wheezing/dyspnea - started prednisone 40mg daily -- day #2 of such today cont scheduled nebs cont pulmonary toilet (4) Shortness of breath: Plan: likely combination of both acute/chronic HFpEF and pneumonia along with mild COPD flare slowly improving although still with NC O2 requirement - and progress has been slow cont diuretics cont abx cont supportive care (5) ST segment changes on electrocardiogram: Plan: inferior ST changes but NO ischemic symptoms and troponins negative - although he mentioned vague episode of chest pain pre-hospital sometime in the last couple of weeks with that said he walks 2-3 miles EVERY DAY without limiting dyspnea, chest pain, etc. he has presumed CAD (numerous CAD risk factors, etc) but no cath to definitively diagnose such cont plavix cont simvastatin/zetia unfortunately, even if we wanted to perform stress test at this time, this is not ideal timing due to above issues (acute/chronic CHF, pneumonia, etc) recheck EKG in am (6) Severe pulmonary hypertension: Plan: cont night-time CPAP at discharge will assess for ambulatory O2 needs given the severity of his pul HTN (7) Permanent atrial fibrillation: Plan: S/p single-chamber pacer placement 2010. Continue Pradaxa 75mg BID. Is not on BB or CCB therapy at baseline. (8) Parkinson's disease: Plan: Continue Sinemet. Appreciate speech therapy eval -- > no dysphagia seen today. (9) PAD (peripheral artery disease): Plan: Continue simvastatin and ezetimibe along with Plavix. (10) Hypertension: Plan: Continue amlodipine, clonidine. Most readings acceptable. (11) Hypothyroidism: Plan: Continue levothyroxine. TSH earlier in 2021 wnl. (12) Anemia: Plan: Mild Secondary to CKD stable H/H (13) Apnea, sleep: Plan: CPAP at night. Encouraged him to have a family member bring home unit in. Otherwise can use hospital issued CPAP. (14) Chronic kidney disease, stage IV (severe): Plan: baseline CrCl 20s baseline Cr 1.8 BMP remains stable again today with Cr 1.8 daily BMP while here (15) NSVT (nonsustained ventricular tachycardia): Plan: recent echo with preserved EF and no LV wall motion abnormalities K wnl Mag wnl monitor for recurrence consider low dose beta lauren if he continues with runs of this but only 1 run since admission he had no symptoms from the NSVT (16) Anorexia: Plan: 2nd to pneumonia? added boost BID added MVI prednisone likely will help Plan DVT proph - pradaxa PT, OT evals appreciated; can likely go home at d/c, rehab not needed updated pt's and son at bedside yesterday updated pt's by phone this evening Admission and Anticipated Discharge Date Admission Date: September 24, 2022 Subjective tele - pacing or a.fib patient reports ongoing BOLDEN - unchanged reports feeling "about the same" as he did on previous days minimal cough appetite per nursing flowsheets -- eating >50% of meals no new issues or complaints today Review of Systems Review of Systems: gen - no fevers, energy is ok, appetite is ok cv - no orthopnea, no chest pain pulm - ongoing dyspnea on exertion; minimal wheezing GI - no nausea/emesis per staff he had a small amount of bright red blood on toilet paper with wiping this am Physical Exam Physical Exam: gen - NAD, no change from yesterday neck - mild JVD present mouth - MMM heart - RRR, s1 s2, 2/6 systolic murmur lungs - minimal end-exp wheezing, decreased BS right base; mild rales right base; no increased work of breathing abd - soft NT ND BS+ ext - no edema, pulses 2+ b/l psych - a/o x 3 Results & Data Results & Data ([facility]) Vital Signs (Past 12 Hours) Vital Signs Temp Pulse Pulse Resp BP Pulse Ox O2 Del Method 09/28/22 19:22 36.8 C 66 18 145/61 H 93 Nasal Cannula 09/28/22 19:08 59 L 18 90 Nasal Cannula 09/28/22 14:08 73 09/28/22 15:17 36.9 C 76 20 154/62 H 90 Nasal Cannula 09/28/22 08:48 Nasal Cannula 09/28/22 13:05 72 18 93 Nasal Cannula 09/28/22 11:41 36.6 C 69 20 154/62 H 91 Nasal Cannula O2 Flow Rate 09/28/22 19:22 2 09/28/22 19:08 2 09/28/22 14:08 09/28/22 15:17 3 09/28/22 08:48 3 09/28/22 13:05 3 09/28/22 11:41 3 Laboratory Results Laboratory Results - last 24 hr 09/28/22 09/28/22 09/28/22 07:22 10:32 11:55 Sodium 138 Potassium 4.4 Chloride 104 Carbon Dioxide 27 Anion Gap 7 BUN 50 H Creatinine 1.84 H Est Cr Clr Drug Dosing 26.8 Est GFR ( Amer) 37.1 Est GFR (Non-Af Amer) 32.0 BUN/Creatinine Ratio 27.2 H Glucose 180 H POC Glucose 149 H Calcium 8.9 C-Reactive Protein 13.86 H Nasal Screen MRSA (PCR) Adenovirus (PCR) Not Detected B. pertussis DNA (PCR) Not Detected B.parapertussis DNA PCR Not Detected C. pneumoniae DNA (PCR) Not Detected Coronavirus OC43 (PCR) Not Detected Coronavirus HKU1 (PCR) Not Detected Coronavirus 229E (PCR) Not Detected SARS-CoV-2 (PCR) Not Detected Coronavirus NL63 (PCR) Not Detected Human Metapneumovir PCR Not Detected Influenza Type A (PCR) Not Detected Influenza Type B (PCR) Not Detected M. pneumoniae (PCR) Not Detected Parainfluenza 1 (PCR) Not Detected Parainfluenza 2 (PCR) Not Detected Parainfluenza 3 (PCR) Not Detected Parainfluenza 4 (PCR) Not Detected RSV (PCR) Not Detected Entero/Rhino (PCR) Not Detected 09/28/22 09/28/22 16:38 17:25 Sodium Potassium Chloride Carbon Dioxide Anion Gap BUN Creatinine Est Cr Clr Drug Dosing Est GFR ( Amer) Est GFR (Non-Af Amer) BUN/Creatinine Ratio Glucose POC Glucose 191 H Calcium C-Reactive Protein Nasal Screen MRSA (PCR) Negative Adenovirus (PCR) B. pertussis DNA (PCR) B.parapertussis DNA PCR C. pneumoniae DNA (PCR) Coronavirus OC43 (PCR) Coronavirus HKU1 (PCR) Coronavirus 229E (PCR) SARS-CoV-2 (PCR) Coronavirus NL63 (PCR) Human Metapneumovir PCR Influenza Type A (PCR) Influenza Type B (PCR) M. pneumoniae (PCR) Parainfluenza 1 (PCR) Parainfluenza 2 (PCR) Parainfluenza 3 (PCR) Parainfluenza 4 (PCR) RSV (PCR) Entero/Rhino (PCR) PG Care Time/CCT Total # of Minutes Spent Total Time Spent with Patient: Total time spent is greater than 50% in coordination of care (as documented) at patient's floor/unit and/or counseling patient: Coding Level of Care Code 15885 SUB INP/OBS CARE 3/50MIN Diagnoses Chronic diastolic congestive heart failure I50.32 Pneumonia J18.9 COPD (chronic obstructive pulmonary disease) J44.[address] of [address] segment changes on electrocardiogram R94.31 Severe pulmonary hypertension I27.20 Permanent atrial fibrillation I48.21 Parkinson's disease G20 PAD (peripheral artery disease) I73.9 Hypertension I10 Hypothyroidism E03.9 Anemia D64.9 Apnea, sleep G47.33 Sleep apnea type: obstructive Chronic kidney disease, stage IV (severe) N18.4 NSVT (nonsustained ventricular tachycardia) I47.29 Anorexia R63.0 (1) Apnea, sleep Sleep apnea type: obstructive Qualified Code(s): G47.33 - Obstructive sleep apnea (adult) (pediatric)
[2022-09-28] MEDS ORDERED: GLUCOSE 10 TAB/TUBE PO PRN (20:30)
[2022-09-28] MEDS ORDERED: GLUCAGON FOR INJ 1 MG VIAL IM PRN (20:30)
[2022-09-28] MEDS ORDERED: DEXTROSE 50% 50 ML SYRINGE IV PRN (20:30)
[2022-09-28] MEDS ORDERED: CARBOHYDRATES FOR HYPOGLYCEMIA PO PRN (20:30)
[2022-09-28] MEDS ORDERED: GLUCOSE 40% GEL 15 GM TUBE PO PRN (20:30)
[2022-09-28] MEDS: EZETIMIBE/SIMVASTATIN 10/20 TAB PO SCH (20:38)
[2022-09-28] MEDS: INSULIN ASPART PER UNIT SC SCH (20:49)
[2022-09-29] MEDS: CEFEPIME 1,000 MG in SYRINGE 0 ML IV SCH ×2 (01:57→14:12)
[2022-09-29] MEDS: ALBUT/IPRATROP 3MG/0.5MG NEB 3 ML VIAL INH SCH ×4 (02:02→20:40)
[2022-09-29] MEDS: LEVOTHYROXINE SODIUM 100 MCG TABLET PO SCH (05:39)
[2022-09-29 06:48] LABS: Hematocrit (blood only) 35.6 % (40.1-51.0); Hemoglobin 11.9 g/dl (14.0-18.0); Mean Corpuscular Hemoglobin 30.1 pg (25.0-34.0); Mean Corpuscular Hgb Conc 33.4 g/dL (32.0-36.0); Mean Corpuscular Volume 90.1 fL (80.0-100.0); Mean Platelet Volume 11.6 fL (9.4-12.4); Platelet Count 281 K/uL (130-400); RDW Coefficient of Variation 13.9 % (11.5-14.5); RDW Standard Deviation 46.1 fL (36.4-46.3); Red Blood Count 3.95 M/uL (4.63-6.08); White Blood Count 8.79 K/ul (4.8-10.8)
[2022-09-29 07:13] LABS: BUN Creatinine Ratio 31.8 (10-20); Calcium 9.5 mg/dl (8.5-10.1); Creatinine Clr Calc Pharmacy 23.4 ml/min; Est GFR (African American) 31.4 ml/min; Est GFR (Non-African American) 27.1 ml/min; Potassium 4.2 mmol/L (3.5-5.1)
[2022-09-29] MEDS: CLOPIDOGREL BISULFATE 75 MG TAB PO SCH (08:42)
[2022-09-29] MEDS: cloNIDine HCL 0.1 MG TAB PO SCH ×3 (08:42→19:57)
[2022-09-29] MEDS: DOXYCYCLINE HYCLATE 100 MG CAP PO SCH ×2 (08:42→19:56)
[2022-09-29] MEDS: amLODIPine BESYLATE 5 MG TAB PO SCH (08:43)
[2022-09-29] MEDS: POTASSIUM CHLORIDE CRTAB 20 MEQ TABCR PO SCH (08:43)
[2022-09-29] MEDS: CEROVITE ADV FORMULA TAB PO SCH (08:43)
[2022-09-29] MEDS: CARBIDOPA/LEVODOPA 25/100MG TAB PO SCH ×3 (08:43→19:56)
[2022-09-29] MEDS: allopurinoL 100 MG TAB PO SCH (08:43)
[2022-09-29] MEDS: predniSONE 20 MG TAB PO SCH (08:43)
[2022-09-29] MEDS: DABIGATRAN ETEXILATE 75 MG CAP PO SCH ×2 (08:43→19:55)
[2022-09-29] MEDS: INSULIN ASPART PER UNIT SC SCH ×4 (08:50→20:10)
[2022-09-29] MEDS: CALCIUM 600MG + VIT D 400 IU TAB PO SCH (11:59)
--- NOTE | 2022-09-29 14:24 | Electrocardiogram Report ---
Test Reason : Blood Pressure : / mmHG Vent. Rate : 061 BPM Atrial Rate : 061 BPM P-R Int : 000 ms QRS Dur : 086 ms QT Int : 504 ms P-R-T Axes : 000 007 266 degrees QTc Int : 507 ms Ventricular-paced rhythm with underlying atrial fibrillation Abnormal ECG When compared with ECG of 24-SEP-2022 08:34, Vent. rate has decreased BY 10 BPM Confirmed by Albert Vega ([id number]) on 09/29/2022 2:23:55 PM Referred By: REFERRED SELF Confirmed By:Albert Vega
[2022-09-29] MEDS: guaiFENesin 600 MG TABCR PO SCH ×2 (15:21→19:54)
[2022-09-29] MEDS: EZETIMIBE/SIMVASTATIN 10/20 TAB PO SCH (19:55)
--- NOTE | 2022-09-29 20:22 | Hospitalist Progress Note ---
Date of Service September 29, 2022 Assessment & Plan (1) Pneumonia: Plan: RUL initially, then most recent cxr with RLL infiltrate as well. This was despite 5 days each of rocephin/doxy. CRP still high & unchanged. O2 requirement unchanged last 2-3 days although he did require as much as 6 L NC O2 early in stay. He continues to feel short of breath and doesn't feel much improved on grand scale - but he looks good on general scale. Aspiration unlikely - speech therapy evaluated - no dysphagia noted. gram negative etiology? other? d/c rocephin --> changed to IV cefepime 09/28/22. cont doxy for atypical coverage. day #6 of 7 of doxy. checked MRSA swab - negative; defer on MRSA coverage. checked respiratory BioFire -- fully negative. sent urine for legionella ag -- pending. if he fails to improve then pulmonary consultation. Cont supportive care. Repeat CRP level am. WBC count has been normal over the last few days. (2) Chronic diastolic congestive heart failure: Plan: acute/chronic HFpEF - acute component resolved. Creatinine climbed above baseline this am. HOLD further diuretics until creatinine has gone back to baseline. BMP in am Echo 11/12: EF 50-55%, left ventricular systolic function low normal, no regional WMA, RV mildly dilated, RV systolic function normal, severe pulmonary hypertension and moderately dilated IVC, moderate tricuspid regurg. Echo this admission largely unchanged (3) COPD (chronic obstructive pulmonary disease): Plan: with exacerbation PFTs 2021 with mild obstruction, poor bronchodilator response due to ongoing cough/wheezing/dyspnea - started prednisone 40mg daily -- day #3 of such today cont scheduled nebs cont pulmonary toilet (4) Shortness of breath: Plan: likely combination of both acute/chronic HFpEF and pneumonia along with mild COPD flare slowly improving although still with NC O2 requirement - and progress has been slow cont diuretics cont abx cont supportive care see discussions above in #1, #2, #3 (5) ST segment changes on electrocardiogram: Plan: admission EKG - inferior ST changes but NO ischemic symptoms and troponins negative - although he mentioned vague episode of chest pain pre-hospital sometime in the last couple of weeks with that said he walks 2-3 miles EVERY DAY without limiting dyspnea, chest pain, etc. he has presumed CAD (numerous CAD risk factors, etc) but no cath to definitively diagnose such cont plavix cont simvastatin/zetia unfortunately, even if we wanted to perform stress test at this time, this is not ideal timing due to above issues (acute/chronic CHF, pneumonia, etc) EKG today -- pacing; ST changes laterally are chronic (6) Severe pulmonary hypertension: Plan: cont night-time CPAP at discharge will assess for ambulatory O2 needs given the severity of his pul HTN (7) Permanent atrial fibrillation: Plan: S/p single-chamber pacer placement 2010. Continue Pradaxa 75mg BID. Is not on BB or CCB therapy at baseline. (8) Parkinson's disease: Plan: Continue Sinemet. Appreciate speech therapy eval -- > no dysphagia seen. (9) PAD (peripheral artery disease): Plan: Continue simvastatin and ezetimibe along with Plavix. (10) Hypertension: Plan: Continue amlodipine, clonidine. Most readings acceptable. (11) Hypothyroidism: Plan: Continue levothyroxine. TSH earlier in 2021 wnl. (12) Anemia: Plan: Mild Secondary to CKD stable H/H (13) Apnea, sleep: Plan: CPAP at night. (14) Chronic kidney disease, stage IV (severe): Plan: baseline CrCl 20s baseline Cr 1.8 Cr today climbed to 2.1 -- no further diuretics. daily BMP while here (15) NSVT (nonsustained ventricular tachycardia): Plan: brief episode (<10 beats) several days ago -- no symptoms from such recent echo with preserved EF and no LV wall motion abnormalities K wnl Mag wnl monitor for recurrence consider low dose beta lauren if he continues with runs of this but only 1 run since admission (16) Anorexia: Plan: 2nd to pneumonia? but patient stated twice this week "this is how much I eat at home" added boost BID added MVI prednisone may help Plan DVT proph - pradaxa PT, OT evals appreciated; initial evals- he did great but since those initial evals he has gotten weaker thus, cont PT, OT updated pt's by phone this evening once again Admission and Anticipated Discharge Date Admission Date: September 24, 2022 Subjective patient sitting in chair during the visit feels no better, no worse "I feel the same" minimal cough no sputum no dyspnea at rest mild BOLDEN only requiring 2-3L NC O2 only using CPAP at HS appetite is the same he expressed frustration that "no one walked me" (over the weekend) felt weak when getting from bed to chair today Review of Systems Review of Systems: gen - no fevers/chills cv - no orthopnea, no chest pain pulm - no sputum GI - no diarrhea, nausea or emesis Physical Exam Physical Exam: gen - NAD, no change from yesterday, sitting in chair; he looks good neck - no JVD at 90 degrees mouth - MM dry today heart - RRR, s1 s2, 2/6 systolic murmur lungs - end-exp wheezing resolved, decreased BS right base; scant rales right base only; no increased work of breathing abd - soft NT ND BS+ ext - no edema, pulses 2+ b/l psych - a/o x 3 Results & Data Results & Data ([facility]) Vital Signs (Past 12 Hours) Vital Signs Temp Pulse Pulse Resp BP Pulse Ox O2 Del Method 09/29/22 19:38 36.5 C 77 22 156/56 H 93 Nasal Cannula 09/29/22 15:30 75 09/29/22 15:08 36.6 C 62 18 144/61 H 93 Nasal Cannula 09/29/22 13:18 68 18 91 Nasal Cannula 09/29/22 09:30 Nasal Cannula 09/29/22 10:56 36.5 C 57 L 18 157/67 H 99 Nasal Cannula O2 Flow Rate 09/29/22 19:38 2.5 09/29/22 15:30 09/29/22 15:08 2 09/29/22 13:18 2 09/29/22 09:30 3 09/29/22 10:56 2 Laboratory Results Laboratory Results - last 24 hr 09/28/22 09/29/22 09/29/22 20:46 05:58 05:58 WBC 8.79 RBC 3.95 L Hgb 11.9 L Hct 35.6 L MCV 90.1 MCH 30.1 MCHC 33.4 RDW Std Deviation 46.1 RDW Coeff of Italo 13.9 Plt Count 281 MPV 11.6 Sodium 138 Potassium 4.2 Chloride 100 Carbon Dioxide 29 Anion Gap 9 BUN 67 H Creatinine 2.11 H Est Cr Clr Drug Dosing 23.4 Est GFR ( Amer) 31.4 Est GFR (Non-Af Amer) 27.1 BUN/Creatinine Ratio 31.8 H Glucose 181 H POC Glucose 211 H Calcium 9.5 09/29/22 09/29/22 09/29/22 07:42 11:33 16:33 WBC RBC Hgb Hct MCV MCH MCHC RDW Std Deviation RDW Coeff of [place] Plt Count MPV Sodium Potassium Chloride Carbon Dioxide Anion Gap BUN Creatinine Est Cr Clr Drug Dosing Est GFR ( Amer) Est GFR (Non-Af Amer) BUN/Creatinine Ratio Glucose POC Glucose 178 H 182 H 221 H Calcium 09/29/22 20:08 WBC RBC Hgb Hct MCV MCH MCHC RDW Std Deviation RDW Coeff of [place] Plt Count MPV Sodium Potassium Chloride Carbon Dioxide Anion Gap BUN Creatinine Est Cr Clr Drug Dosing Est GFR ( Amer) Est GFR (Non-Af Amer) BUN/Creatinine Ratio Glucose POC Glucose 220 H Calcium PG Care Time/CCT Total # of Minutes Spent Total Time Spent with Patient: Total time spent is greater than 50% in coordination of care (as documented) at patient's floor/unit and/or counseling patient: Coding Level of Care Code 33593 SUB INP/OBS CARE 235MIN Diagnoses Pneumonia J18.9 Chronic diastolic congestive heart failure I50.32 COPD (chronic obstructive pulmonary disease) J44.[address] of [address] segment changes on electrocardiogram R94.31 Severe pulmonary hypertension I27.20 Permanent atrial fibrillation I48.21 Parkinson's disease G20 PAD (peripheral artery disease) I73.9 Hypertension I10 Hypothyroidism E03.9 Anemia D64.9 Apnea, sleep G47.33 Sleep apnea type: obstructive Chronic kidney disease, stage IV (severe) N18.4 NSVT (nonsustained ventricular tachycardia) I47.29 Anorexia R63.0 (1) Apnea, sleep Sleep apnea type: obstructive Qualified Code(s): G47.33 - Obstructive sleep apnea (adult) (pediatric)
[2022-09-29] MEDS: LANTUS PER UNIT CHARGE SQ SCH (20:49)
[2022-09-30] MEDS: ALBUT/IPRATROP 3MG/0.5MG NEB 3 ML VIAL INH SCH ×2 (00:42→07:03)
[2022-09-30] MEDS: CEFEPIME 1,000 MG in SYRINGE 0 ML IV SCH ×2 (01:14→14:16)
[2022-09-30] MEDS: LEVOTHYROXINE SODIUM 100 MCG TABLET PO SCH (05:37)
[2022-09-30 07:41] LABS: BUN Creatinine Ratio 35.6 (10-20); C Reactive Protein 4.8 mg/dl (0-0.5); Calcium 9.5 mg/dl (8.5-10.1); Est GFR (Non-African American) 22.4 ml/min; Potassium 4.4 mmol/L (3.5-5.1)
[2022-09-30] MEDS ORDERED: SODIUM CHLORIDE 0.9% 500 ML IV SCH (09:15)
[2022-09-30] MEDS: predniSONE 20 MG TAB PO SCH (09:27)
[2022-09-30] MEDS: CEROVITE ADV FORMULA TAB PO SCH (09:27)
[2022-09-30] MEDS: allopurinoL 100 MG TAB PO SCH (09:28)
[2022-09-30] MEDS: amLODIPine BESYLATE 5 MG TAB PO SCH (09:28)
[2022-09-30] MEDS: DABIGATRAN ETEXILATE 75 MG CAP PO SCH ×2 (09:28→21:25)
[2022-09-30] MEDS: cloNIDine HCL 0.1 MG TAB PO SCH ×3 (09:28→21:23)
[2022-09-30] MEDS: guaiFENesin 600 MG TABCR PO SCH ×2 (09:29→21:24)
[2022-09-30] MEDS: CLOPIDOGREL BISULFATE 75 MG TAB PO SCH (09:29)
[2022-09-30] MEDS: DOXYCYCLINE HYCLATE 100 MG CAP PO SCH ×2 (09:29→21:24)
[2022-09-30] MEDS: CARBIDOPA/LEVODOPA 25/100MG TAB PO SCH ×3 (09:29→21:25)
[2022-09-30] MEDS: INSULIN ASPART PER UNIT SC SCH ×4 (09:33→21:21)
[2022-09-30] MEDS: POTASSIUM CHLORIDE CRTAB 20 MEQ TABCR PO SCH (09:49)
[2022-09-30] MEDS: CALCIUM 600MG + VIT D 400 IU TAB PO SCH (12:28)
--- NOTE | 2022-09-30 15:54 | Hospitalist Progress Note ---
Date of Service September 30, 2022 Assessment & Plan (1) Pneumonia: Plan: RUL initially, then most recent cxr with RLL infiltrate as well. This was despite 5 days each of rocephin/doxy. CRP were still high & unchanged. O2 requirement unchanged last 2-3 days although he did require as much as 6 L NC O2 early in stay. He continues to feel short of breath and doesn't feel much improved on grand scale - but he looks good on general scale. Aspiration unlikely - speech therapy evaluated - no dysphagia noted. Initially he was placed on IV Rocephin and doxycycline, but this was changed to IV cefepime 09/28/22. Now starting to improve with changing antibiotic coverage to that for gram- negative pneumonia CRP trending downward. Remains afebrile. checked MRSA swab - negative but doxycycline will cover for MRSA regardless checked respiratory BioFire -- fully negative. sent urine for legionella ag -- pending. -Continue IV cefepime, doxycycline -Follow chest x-ray in the morning (2) Chronic diastolic congestive heart failure: Plan: acute/chronic HFpEF - acute component resolved. Creatinine climbed further up today to 2.47, BUN up to 88 but also on steroids Continue to HOLD further diuretics until creatinine has gone back to baseline. Give 500 mL of normal saline gently over 5 hours Follow BMP in am Echo 11/12: EF 50-55%, left ventricular systolic function low normal, no regional WMA, RV mildly dilated, RV systolic function normal, severe pulmonary hypertension and moderately dilated IVC, moderate tricuspid regurg. Echo this admission largely unchanged (3) COPD (chronic obstructive pulmonary disease): Plan: with exacerbation PFTs 2021 with mild obstruction, poor bronchodilator response due to ongoing cough/wheezing/dyspnea - started prednisone 40mg daily -- day #4 of such today cont scheduled nebs cont pulmonary toilet (4) Shortness of breath: Plan: likely combination of both acute/chronic HFpEF and pneumonia along with mild COPD flare slowly improving although still with NC O2 requirement - and progress has been slow Holding diuretics due to rising creatinine cont abx, prednisone cont supportive care (5) ST segment changes on electrocardiogram: Plan: admission EKG - inferior ST changes but NO ischemic symptoms and troponins negative - although he mentioned vague episode of chest pain pre-hospital sometime in the last couple of weeks with that said he walks 2-3 miles EVERY DAY without limiting dyspnea, chest pain, etc. he has presumed CAD (numerous CAD risk factors, etc) but no cath to definitively diagnose such - high-sensitivity troponin was negative x2 this admission cont plavix cont simvastatin/zetia unfortunately, even if we wanted to perform stress test at this time, this is not ideal timing due to above issues (acute/chronic CHF, pneumonia, etc) EKG -- pacing; ST changes laterally are chronic (6) Severe pulmonary hypertension: Plan: cont night-time CPAP at discharge will assess for ambulatory O2 needs given the severity of his pul HTN (7) Permanent atrial fibrillation: Plan: S/p single-chamber pacer placement 2010. Continue Pradaxa 75mg BID. Is not on BB or CCB therapy at baseline. (8) Parkinson's disease: Plan: Continue Sinemet. Appreciate speech therapy eval -- > no dysphagia seen. (9) PAD (peripheral artery disease): Plan: Continue simvastatin and ezetimibe along with Plavix. (10) Hypertension: Plan: Continue amlodipine, clonidine. Most readings acceptable. (11) Hypothyroidism: Plan: Continue levothyroxine. TSH earlier in 2021 wnl. (12) Anemia: Plan: Mild Secondary to CKD stable H/H (13) Apnea, sleep: Plan: CPAP at night. (14) Chronic kidney disease, stage IV (severe): Plan: baseline CrCl 20s baseline Cr 1.8 Acute kidney injury as above, creatinine now up to 2.47 (15) NSVT (nonsustained ventricular tachycardia): Plan: brief episode (<10 beats) several days ago -- no symptoms from such recent echo with preserved EF and no LV wall motion abnormalities K wnl Mag wnl Okay to transition off telemetry (16) Anorexia: Plan: Likely 2nd to pneumonia Continues to have very low appetite below his usual added boost BID added MVI prednisone may help Plan DVT proph - pradaxa PT, OT evals appreciated; initial evals- he did great but since those initial evals he has gotten weaker thus, cont PT, OT Disposition-continued stay Admission and Anticipated Discharge Date Admission Date: September 24, 2022 Subjective Patient reports he feels about the same as yesterday. Not feeling well. Still coughing but now bringing up some sputum which is new from previous. Is out of bed to chair. Reports he ate breakfast but has very poor appetite and did not eat lunch. No nausea. Has some mild heartburn but does not want to take anything for it. He has not moved his bowels in 2 days. Telemetry with paced rhythm, A. fib, PVCs, sometimes 2-3 beat runs of PVCs, rates in the 60s to 70s Review of Systems Review of Systems: All systems reviewed & are unremarkable except as noted in HPI & below Physical Exam Physical Exam: gen - NAD, AAOx3 heart - RRR, s1 s2, 2/6 systolic murmur lungs -unlabored breathing, positive crackles at the left lower and middle lung milan, otherwise clear abd - soft NT ND BS+ ext - no edema, pulses 2+ b/l psych - a/o x 3 Results & Data Results & Data ([facility]) Vital Signs (Past 12 Hours) Vital Signs Temp Pulse Pulse Resp BP BP Pulse Ox 09/30/22 11:45 36.6 C 72 18 147/68 H 91 09/30/22 08:00 09/30/22 08:00 36.5 C 64 20 156/64 H 94 09/30/22 07:26 65 09/30/22 07:03 63 18 95 09/30/22 04:00 36.3 C L 65 22 153/76 H 94 O2 Del Method O2 Flow Rate 09/30/22 11:45 Nasal Cannula 3 09/30/22 08:00 Nasal Cannula 3 09/30/22 08:00 Nasal Cannula 3 09/30/22 07:26 09/30/22 07:03 Nasal Cannula 3 09/30/22 04:00 BiPAP Laboratory Results 09/29/22 05:58 09/30/22 06:02 PG Care Time/CCT Total # of Minutes Spent Total Time Spent with Patient: Total time spent is greater than 50% in coordination of care (as documented) at patient's floor/unit and/or counseling patient: Coding Level of Care Code 75354 SUB INP/OBS CARE 2/35MIN Diagnoses Pneumonia J18.9 Chronic diastolic congestive heart failure I50.32 COPD (chronic obstructive pulmonary disease) J44.[address] of [address] segment changes on electrocardiogram R94.31 Severe pulmonary hypertension I27.20 Permanent atrial fibrillation I48.21 Parkinson's disease G20 PAD (peripheral artery disease) I73.9 Hypertension I10 Hypothyroidism E03.9 Anemia D64.9 Apnea, sleep G47.33 Sleep apnea type: obstructive Chronic kidney disease, stage IV (severe) N18.4 NSVT (nonsustained ventricular tachycardia) I47.29 Anorexia R63.0 (1) Apnea, sleep Sleep apnea type: obstructive Qualified Code(s): G47.33 - Obstructive sleep apnea (adult) (pediatric)
[2022-09-30] MEDS: LANTUS PER UNIT CHARGE SQ SCH (21:21)
[2022-09-30] MEDS: EZETIMIBE/SIMVASTATIN 10/20 TAB PO SCH (21:25)
[2022-10-01] MEDS: CEFEPIME 1,000 MG in SYRINGE 0 ML IV SCH ×2 (02:56→14:39)
[2022-10-01] MEDS: LEVOTHYROXINE SODIUM 100 MCG TABLET PO SCH (06:31)
[2022-10-01 06:35] LABS: Basophils # (auto) 0.01 K/uL (0-0.2); Basophils % (auto) 0.1 %; Hematocrit (blood only) 33.9 % (40.1-51.0); Hemoglobin 11.5 g/dl (14.0-18.0); Immature Granulocytes # (auto) 0.14 K/uL (0.00-0.02); Immature Granulocytes % (auto) 1.7 %; Lymphocytes # (auto) 0.53 K/uL (1.2-3.4); Lymphocytes % (auto) 6.4 %; Mean Corpuscular Hemoglobin 30.1 pg (25.0-34.0); Mean Corpuscular Hgb Conc 33.9 g/dL (32.0-36.0); Mean Corpuscular Volume 88.7 fL (80.0-100.0); Mean Platelet Volume 11.5 fL (9.4-12.4); Monocytes # (auto) 0.87 K/uL (0.24-0.82); Monocytes % (auto) 10.6 %; Neutrophils # (auto) 6.68 K/uL (1.4-6.5); Neutrophils % (auto) 81.2 %; Platelet Count 271 K/uL (130-400); RDW Coefficient of Variation 14.1 % (11.5-14.5); RDW Standard Deviation 45.7 fL (36.4-46.3); Red Blood Count 3.82 M/uL (4.63-6.08); White Blood Count 8.23 K/ul (4.8-10.8)
[2022-10-01 07:13] LABS: BUN Creatinine Ratio 42.5 (10-20); Calcium 9.6 mg/dl (8.5-10.1); Creatinine Clr Calc Pharmacy 21.7 ml/min; Est GFR (African American) 28.6 ml/min; Est GFR (Non-African American) 24.7 ml/min; Magnesium 2.8 mg/dl (1.7-2.4); Potassium 4.6 mmol/L (3.5-5.1)
[2022-10-01] MEDS: allopurinoL 100 MG TAB PO SCH (08:31)
[2022-10-01] MEDS: DOXYCYCLINE HYCLATE 100 MG CAP PO SCH (08:31)
[2022-10-01] MEDS: DABIGATRAN ETEXILATE 75 MG CAP PO SCH ×2 (08:31→20:13)
[2022-10-01] MEDS: guaiFENesin 600 MG TABCR PO SCH ×2 (08:32→20:13)
[2022-10-01] MEDS: cloNIDine HCL 0.1 MG TAB PO SCH ×3 (08:32→20:12)
[2022-10-01] MEDS: amLODIPine BESYLATE 5 MG TAB PO SCH (08:32)
[2022-10-01] MEDS: CARBIDOPA/LEVODOPA 25/100MG TAB PO SCH ×3 (08:33→20:13)
[2022-10-01] MEDS: CEROVITE ADV FORMULA TAB PO SCH (08:33)
[2022-10-01] MEDS: CLOPIDOGREL BISULFATE 75 MG TAB PO SCH (08:34)
[2022-10-01] MEDS: predniSONE 20 MG TAB PO SCH (08:34)
[2022-10-01] MEDS: INSULIN ASPART PER UNIT SC SCH ×4 (08:39→21:25)
[2022-10-01 09:30] LABS: C Reactive Protein 3.48 mg/dl (0-0.5)
[2022-10-01] MEDS: CALCIUM 600MG + VIT D 400 IU TAB PO SCH (14:39)
--- NOTE | 2022-10-01 16:02 | Hospitalist Progress Note ---
Date of Service October 01, 2022 Assessment & Plan (1) Pneumonia: Plan: RUL initially, then most recent cxr with RLL infiltrate as well. This was despite 5 days each of rocephin/doxy. Was changed to Cefepime and doxy on 09/28 CRP remained high & unchanged initially, but now trending downward. O2 requirement-did require as much as 6 L NC O2 early in stay, now weaned to 3LNC Aspiration unlikely - speech therapy evaluated - no dysphagia noted. checked MRSA swab - negative but doxycycline will cover for MRSA regardless checked respiratory BioFire - negative. Dyspnea improving, still with low energy and low appetite. Is afebrile CXR 10/01 seems unchanged on my review-not officially read yet -sent urine for legionella ag -- pending. -Continue IV cefepime, doxycycline -Follow chest x-ray to resolution -continue prednisone burst, supplemental O2 and wean off as able to (2) Chronic diastolic congestive heart failure: Plan: acute/chronic HFpEF - acute component resolved. Creatinine climbed further up to 2.47, BUN up to 88 but also on steroids Now risk assessment analyst improved after 500mL NS given on 09/30, risk assessment analyst now 2.28 Continue to HOLD further diuretics until creatinine has gone back to baseline. Follow BMP in am Echo 11/12: EF 50-55%, left ventricular systolic function low normal, no regional WMA, RV mildly dilated, RV systolic function normal, severe pulmonary hypertension and moderately dilated IVC, moderate tricuspid regurg. Echo this admission largely unchanged (3) COPD (chronic obstructive pulmonary disease): Plan: with exacerbation PFTs 2021 with mild obstruction, poor bronchodilator response due to ongoing cough/wheezing/dyspnea - started prednisone 40mg daily -- day #5 of such today cont nebs prn cont pulmonary toilet (4) Shortness of breath: Plan: likely combination of both acute/chronic HFpEF and pneumonia along with mild COPD flare continues to be improving although still with NC O2 requirement - progress has been slow Holding diuretics due to rising creatinine cont abx, prednisone cont supportive care (5) ST segment changes on electrocardiogram: Plan: admission EKG - inferior ST changes but NO ischemic symptoms and troponins negative - although he mentioned vague episode of chest pain pre-hospital sometime in the last couple of weeks with that said he walks 2-3 miles EVERY DAY without limiting dyspnea, chest pain, etc. he has presumed CAD (numerous CAD risk factors, etc) but no cath to definitively diagnose such - high-sensitivity troponin was negative x2 this admission cont plavix cont simvastatin/zetia unfortunately, even if we wanted to perform stress test at this time, this is not ideal timing due to above issues (acute/chronic CHF, pneumonia, etc) EKG -- pacing; ST changes laterally are chronic (6) Severe pulmonary hypertension: Plan: cont night-time CPAP at discharge will assess for ambulatory O2 needs given the severity of his pulm HTN (7) Permanent atrial fibrillation: Plan: S/p single-chamber pacer placement 2010. Continue Pradaxa 75mg BID. Is not on BB or CCB therapy at baseline. (8) Parkinson's disease: Plan: Continue Sinemet. Appreciate speech therapy eval -- > no dysphagia seen. (9) PAD (peripheral artery disease): Plan: Continue simvastatin and ezetimibe along with Plavix. (10) Hypertension: Plan: Continue amlodipine, clonidine. Most readings acceptable. (11) Hypothyroidism: Plan: Continue levothyroxine. TSH earlier in 2021 wnl. (12) Anemia: Plan: Mild Secondary to CKD stable H/H (13) Apnea, sleep: Plan: CPAP at night. (14) Chronic kidney disease, stage IV (severe): Plan: baseline CrCl 20s baseline Cr 1.8 Acute kidney injury as above, now improving (15) NSVT (nonsustained ventricular tachycardia): Plan: brief episode (<10 beats) several days ago -- no symptoms from such recent echo with preserved EF and no LV wall motion abnormalities K wnl Mag wnl have since transitioned off telemetry (16) Anorexia: Plan: Likely 2nd to pneumonia Continues to have very low appetite below his usual added boost BID added MVI prednisone may help Plan DVT proph - pradaxa PT, OT evals appreciated-recommend home w/ 13/04 care if can improve closer to goals vs rehab. Pt declines to go to rehab. Continue PT/OT as often as possible Disposition-continued stay for ongoing dyspnea, treatment of PNA Admission and Anticipated Discharge Date Admission Date: September 24, 2022 Subjective Pt still has some SOB with exertion but ambulated in the halls with PT today, POx remained 94% on 3LNC. Feels better since his bowels started moving. Is a little forgetful at times today during our conversation. Review of Systems Review of Systems: All systems reviewed & are unremarkable except as noted in HPI & below Physical Exam Physical Exam: gen - NAD, alert, awake, oriented to person and place, slightly forgetful at times heart - RRR, s1 s2, 2/6 systolic murmur lungs -mild tachypnea with fluent sentences, positive crackles at the left lower and middle lung milan, otherwise clear abd - soft NT ND BS+ ext - no edema Results & Data Results & Data ([facility]) Vital Signs (Past 12 Hours) Vital Signs Temp Pulse Resp BP Pulse Ox O2 Del Method O2 Flow Rate 10/01/22 15:10 36.4 C L 77 20 164/55 H 91 Nasal Cannula 3 10/01/22 12:00 36.4 C L 64 18 157/77 H 94 Nasal Cannula 3 10/01/22 08:00 36.4 C L 63 20 158/67 H 96 CPAP Laboratory Results 10/01/22 10/01/22 10/01/22 Range/Units 11:54 07:53 06:15 WBC (4.8-10.8) K/ul RBC (4.63-6.08) M/uL Hgb (14.0-18.0) g/dl Hct (40.1-51.0) % MCV (80.0-100.0) fL MCH (25.0-34.0) pg MCHC (32.0-36.0) g/dL RDW Std Deviation (36.4-46.3) fL RDW Coeff of [place] (11.5-14.5) % Plt Count (130-400) K/uL MPV (9.4-12.4) fL Immature Gran % (Auto) % Neut % (Auto) % Lymph % (Auto) % [place] % (Auto) % Eos % (Auto) % Baso % (Auto) % Neut # (Auto) (1.4-6.5) K/uL Lymph # (Auto) (1.2-3.4) K/uL [place] # (Auto) (0.24-0.82) K/uL Eos # (Auto) (0-0.50) K/uL Baso # (Auto) (0-0.2) K/uL Immature Gran # (Auto) (0.00-0.02) K/uL Sodium (136-145) mmol/L Potassium (3.5-5.1) mmol/L Chloride (98-107) mmol/L Carbon Dioxide (21-32) mmol/L Anion Gap (3-11) BUN (6-23) mg/dl Creatinine (0.6-1.4) mg/dl Est Cr Clr Drug Dosing ml/min Est GFR ( Amer) ml/min Est GFR (Non-Af Amer) ml/min BUN/Creatinine Ratio (10-20) Glucose (70-99(Fasting)) mg/dl POC Glucose 133 H 147 H (70-99) mg/dl Calcium (8.5-10.1) mg/dl Magnesium (1.7-2.4) mg/dl C-Reactive Protein (0-0.5) mg/dl Procalcitonin 0.13 (0-0.5) ng/ml 10/01/22 10/01/22 09/30/22 Range/Units 06:15 06:15 20:15 WBC 8.23 (4.8-10.8) K/ul RBC 3.82 L (4.63-6.08) M/uL Hgb 11.5 L (14.0-18.0) g/dl Hct 33.9 L (40.1-51.0) % MCV 88.7 (80.0-100.0) fL MCH 30.1 (25.0-34.0) pg MCHC 33.9 (32.0-36.0) g/dL RDW Std Deviation 45.7 (36.4-46.3) fL RDW Coeff of [place] 14.1 (11.5-14.5) % Plt Count 271 (130-400) K/uL MPV 11.5 (9.4-12.4) fL Immature Gran % (Auto) 1.7 % Neut % (Auto) 81.2 % Lymph % (Auto) 6.4 % [place] % (Auto) 10.6 % Eos % (Auto) 0.0 % Baso % (Auto) 0.1 % Neut # (Auto) 6.68 H (1.4-6.5) K/uL Lymph # (Auto) 0.53 L (1.2-3.4) K/uL [place] # (Auto) 0.87 H (0.24-0.82) K/uL Eos # (Auto) 0.00 (0-0.50) K/uL Baso # (Auto) 0.01 (0-0.2) K/uL Immature Gran # (Auto) 0.14 H (0.00-0.02) K/uL Sodium 137 (136-145) mmol/L Potassium 4.6 (3.5-5.1) mmol/L Chloride 103 (98-107) mmol/L Carbon Dioxide 26 (21-32) mmol/L Anion Gap 8 (3-11) BUN 97 H (6-23) mg/dl Creatinine 2.28 H (0.6-1.4) mg/dl Est Cr Clr Drug Dosing 21.7 ml/min Est GFR ( Amer) 28.6 ml/min Est GFR (Non-Af Amer) 24.7 ml/min BUN/Creatinine Ratio 42.5 H (10-20) Glucose 165 H (70-99(Fasting)) mg/dl POC Glucose 195 H (70-99) mg/dl Calcium 9.6 (8.5-10.1) mg/dl Magnesium 2.8 H (1.7-2.4) mg/dl C-Reactive Protein 3.48 H (0-0.5) mg/dl Procalcitonin (0-0.5) ng/ml 09/30/22 Range/Units 16:35 WBC (4.8-10.8) K/ul RBC (4.63-6.08) M/uL Hgb (14.0-18.0) g/dl Hct (40.1-51.0) % MCV (80.0-100.0) fL MCH (25.0-34.0) pg MCHC (32.0-36.0) g/dL RDW Std Deviation (36.4-46.3) fL RDW Coeff of [place] (11.5-14.5) % Plt Count (130-400) K/uL MPV (9.4-12.4) fL Immature Gran % (Auto) % Neut % (Auto) % Lymph % (Auto) % [place] % (Auto) % Eos % (Auto) % Baso % (Auto) % Neut # (Auto) (1.4-6.5) K/uL Lymph # (Auto) (1.2-3.4) K/uL [place] # (Auto) (0.24-0.82) K/uL Eos # (Auto) (0-0.50) K/uL Baso # (Auto) (0-0.2) K/uL Immature Gran # (Auto) (0.00-0.02) K/uL Sodium (136-145) mmol/L Potassium (3.5-5.1) mmol/L Chloride (98-107) mmol/L Carbon Dioxide (21-32) mmol/L Anion Gap (3-11) BUN (6-23) mg/dl Creatinine (0.6-1.4) mg/dl Est Cr Clr Drug Dosing ml/min Est GFR ( Amer) ml/min Est GFR (Non-Af Amer) ml/min BUN/Creatinine Ratio (10-20) Glucose (70-99(Fasting)) mg/dl POC Glucose 158 H (70-99) mg/dl Calcium (8.5-10.1) mg/dl Magnesium (1.7-2.4) mg/dl C-Reactive Protein (0-0.5) mg/dl Procalcitonin (0-0.5) ng/ml PG Care Time/CCT Total # of Minutes Spent Total Time Spent with Patient: Total time spent is greater than 50% in coordination of care (as documented) at patient's floor/unit and/or counseling patient: Coding Level of Care Code 49496 SUB INP/OBS CARE 2/35MIN Diagnoses Pneumonia J18.9 Chronic diastolic congestive heart failure I50.32 COPD (chronic obstructive pulmonary disease) J44.[address] of [address] segment changes on electrocardiogram R94.31 Severe pulmonary hypertension I27.20 Permanent atrial fibrillation I48.21 Parkinson's disease G20 PAD (peripheral artery disease) I73.9 Hypertension I10 Hypothyroidism E03.9 Anemia D64.9 Apnea, sleep G47.33 Sleep apnea type: obstructive Chronic kidney disease, stage IV (severe) N18.4 NSVT (nonsustained ventricular tachycardia) I47.29 Anorexia R63.0 (1) Apnea, sleep Sleep apnea type: obstructive Qualified Code(s): G47.33 - Obstructive sleep apnea (adult) (pediatric)
--- NOTE | 2022-10-01 16:37 | XRay Report ---
XR chest 2V PA/lateral CLINICAL HISTORY: f/u Pneumonia TECHNIQUE: 2 views of the chest were obtained. Comparison: Comparison is made to chest radiograph on 05/10/2023 FINDINGS: Pacemaker is stable. Cardiomegaly is noted. The aortic arch is calcified. Interval worsening of airsp gisselle opacities in the right upper lung and stability of right lower lung and retrocardiac left airspac e opacities. Small right pleural effusion and trace left pleural effusion. IMPRESSION: Multifocal airspace opacities are again seen compatible with evolutionary changes of pneumonia. Cardi omegaly. ACT 112: Negative or not required by law. Electronically signed by: Bubba Charlton M.D. 10/01/2022 4:36 PM
[2022-10-01] MEDS: EZETIMIBE/SIMVASTATIN 10/20 TAB PO SCH (20:12)
[2022-10-01] MEDS: LANTUS PER UNIT CHARGE SQ SCH (21:26)
[2022-10-02] MEDS: CEFEPIME 1,000 MG in SYRINGE 0 ML IV SCH ×2 (01:40→13:42)
[2022-10-02] MEDS: LEVOTHYROXINE SODIUM 100 MCG TABLET PO SCH (05:59)
[2022-10-02 06:09] LABS: Basophils # (auto) 0.02 K/uL (0-0.2); Basophils % (auto) 0.2 %; Eosinophils # (auto) 0.01 K/uL (0-0.50); Eosinophils % (auto) 0.1 %; Hematocrit (blood only) 32.2 % (40.1-51.0); Immature Granulocytes # (auto) 0.17 K/uL (0.00-0.02); Lymphocytes # (auto) 0.66 K/uL (1.2-3.4); Lymphocytes % (auto) 7.6 %; Mean Corpuscular Hemoglobin 30.1 pg (25.0-34.0); Mean Corpuscular Hgb Conc 34.2 g/dL (32.0-36.0); Mean Corpuscular Volume 88.2 fL (80.0-100.0); Mean Platelet Volume 11.4 fL (9.4-12.4); Monocytes # (auto) 1.16 K/uL (0.24-0.82); Monocytes % (auto) 13.4 %; Neutrophils # (auto) 6.61 K/uL (1.4-6.5); Neutrophils % (auto) 76.7 %; Platelet Count 250 K/uL (130-400); RDW Standard Deviation 44.8 fL (36.4-46.3); Red Blood Count 3.65 M/uL (4.63-6.08); White Blood Count 8.63 K/ul (4.8-10.8)
[2022-10-02 06:31] LABS: BUN Creatinine Ratio 50.2 (10-20); C Reactive Protein 2.42 mg/dl (0-0.5); Calcium 9.8 mg/dl (8.5-10.1); Creatinine Clr Calc Pharmacy 23.4 ml/min; Est GFR (African American) 31.4 ml/min; Est GFR (Non-African American) 27.1 ml/min; Magnesium 2.8 mg/dl (1.7-2.4); Potassium 4.4 mmol/L (3.5-5.1)
[2022-10-02] MEDS: INSULIN ASPART PER UNIT SC SCH ×4 (08:26→21:06)
[2022-10-02] MEDS: CARBIDOPA/LEVODOPA 25/100MG TAB PO SCH ×3 (08:27→21:06)
[2022-10-02] MEDS: amLODIPine BESYLATE 5 MG TAB PO SCH (08:27)
[2022-10-02] MEDS: cloNIDine HCL 0.1 MG TAB PO SCH ×3 (08:28→21:07)
[2022-10-02] MEDS: DABIGATRAN ETEXILATE 75 MG CAP PO SCH ×2 (08:28→21:07)
[2022-10-02] MEDS: predniSONE 20 MG TAB PO SCH (08:28)
[2022-10-02] MEDS: CLOPIDOGREL BISULFATE 75 MG TAB PO SCH (08:28)
[2022-10-02] MEDS: allopurinoL 100 MG TAB PO SCH (08:28)
[2022-10-02] MEDS: CEROVITE ADV FORMULA TAB PO SCH (08:28)
[2022-10-02] MEDS: guaiFENesin 600 MG TABCR PO SCH ×2 (08:29→21:07)
[2022-10-02] MEDS: ALBUT/IPRATROP 3MG/0.5MG NEB 3 ML VIAL NEB SCH ×3 (09:19→19:05)
[2022-10-02] MEDS: CALCIUM 600MG + VIT D 400 IU TAB PO SCH (12:36)
--- NOTE | 2022-10-02 14:26 | Hospitalist Progress Note ---
Date of Service October 02, 2022 Assessment & Plan (1) Pneumonia: Plan: RUL initially, then most recent cxr with RLL infiltrate as well. This was despite 5 days each of rocephin/doxy. Was changed to Cefepime and doxy on 09/28 CRP remained high & unchanged initially, but now trending downward. O2 requirement-did require as much as 6 L NC O2 early in stay, now weaned to 3LNC and remains on 3L Aspiration unlikely - speech therapy evaluated - no dysphagia noted. checked MRSA swab - negative but doxycycline will cover for MRSA regardless checked respiratory BioFire - negative. Dyspnea improving but remains, still with low energy and low appetite. Is afebrile CXR 10/01 with increasing infiltrates,not improving -Urine legionella ag is negative -Continue IV cefepime, now completed a course of doxycycline -consider adding on azithro if QT ok--> check ECG -make nebs scheduled again -not producing sputum so no culture obtained -continue flutter valve -Follow chest x-ray to resolution -continue prednisone burst and now will taper down to 30mg on 10/03 -continue supplemental O2 and wean off as able to-will need 2 step walk test prior to discharge (2) Chronic diastolic congestive heart failure: Plan: acute/chronic HFpEF - acute component resolved. Creatinine climbed up to 2.47, BUN also elevated but also on steroids Now farrowing manager improved after 500mL NS given on 09/30, farrowing manager now down to baseline 2.1 Continue to HOLD further diuretics Follow BMP in am Echo 11/12: EF 50-55%, left ventricular systolic function low normal, no regional WMA, RV mildly dilated, RV systolic function normal, severe pulmonary hypertension and moderately dilated IVC, moderate tricuspid regurg. Echo this admission largely unchanged (3) COPD (chronic obstructive pulmonary disease): Plan: with exacerbation PFTs 2021 with mild obstruction, poor bronchodilator response due to ongoing cough/wheezing/dyspnea - started prednisone 40mg daily --> taper down now cont nebs prn cont pulmonary toilet (4) Anorexia: Plan: Likely 2nd to pneumonia Continues to have very low appetite below his usual-severe added boost BID added MVI prednisone not helping -check LFTs -check RUQ US to r/o GB issues (5) ST segment changes on electrocardiogram: Plan: admission EKG - inferior ST changes but NO ischemic symptoms and troponins negative - although he mentioned vague episode of chest pain pre-hospital sometime in the last couple of weeks with that said he walks 2-3 miles EVERY DAY without limiting dyspnea, chest pain, etc. he has presumed CAD (numerous CAD risk factors, etc) but no cath to definitively diagnose such - high-sensitivity troponin was negative x2 this admission cont plavix cont simvastatin/zetia unfortunately, even if we wanted to perform stress test at this time, this is not ideal timing due to above issues (acute/chronic CHF, pneumonia, etc) EKG -- pacing; ST changes laterally are chronic (6) Severe pulmonary hypertension: Plan: cont night-time CPAP at discharge will assess for ambulatory O2 needs given the severity of his pulm HTN (7) Permanent atrial fibrillation: Plan: S/p single-chamber pacer placement 2010. Continue Pradaxa 75mg BID. Is not on BB or CCB therapy at baseline. (8) Parkinson's disease: Plan: Continue Sinemet. Appreciate speech therapy eval -- > no dysphagia seen. (9) PAD (peripheral artery disease): Plan: Continue simvastatin and ezetimibe along with Plavix. (10) Hypertension: Plan: Continue amlodipine, clonidine. Most readings acceptable. (11) Hypothyroidism: Plan: Continue levothyroxine. TSH earlier in 2021 wnl. (12) Anemia: Plan: Mild Secondary to CKD stable H/H (13) Apnea, sleep: Plan: CPAP at night. (14) Chronic kidney disease, stage IV (severe): Plan: baseline CrCl 20s baseline Cr 1.8 Acute kidney injury as above, now improving (15) NSVT (nonsustained ventricular tachycardia): Plan: brief episode (<10 beats) several days ago -- no symptoms from such recent echo with preserved EF and no LV wall motion abnormalities K wnl Mag wnl have since transitioned off telemetry Plan DVT proph - pradaxa PT, OT evals appreciated-recommend home 13/04 care if can improve closer to goals vs rehab. Pt declines to go to rehab. Continue PT/OT as often as possible Disposition-continued stay for ongoing dyspnea, treatment of PNA Admission and Anticipated Discharge Date Admission Date: September 24, 2022 Subjective Pt reports still no better than before. Still BOLDEN, nonproductive cough. No abd pain or nausea, moving bowels now, but still severely low appetite. Barely eating, feeling weaker. Review of Systems Review of Systems: All systems reviewed & are unremarkable except as noted in HPI & below Physical Exam Physical Exam: gen - NAD, alert, awake, oriented to person and place heart - RRR, s1 s2, 2/6 systolic murmur lungs -unlabored breathing, positive crackles at the left lower and middle lung milan as well as right middle lung field, no wheezing abd - soft NT ND BS+ ext - no edema Results & Data Results & Data ([facility]) Vital Signs (Past 12 Hours) Vital Signs Temp Pulse Pulse Resp BP Pulse Ox O2 Del Method 10/02/22 13:35 62 18 92 Nasal Cannula 10/02/22 11:55 36.5 C 66 18 155/69 H 91 Nasal Cannula 10/02/22 09:20 70 18 94 Nasal Cannula 10/02/22 07:50 36.8 C 61 18 154/70 H 94 Nasal Cannula 10/02/22 07:25 Nasal Cannula 10/02/22 03:15 36.4 C L 62 20 149/66 H 95 CPAP 10/02/22 03:20 70 25 H 93 O2 Flow Rate 10/02/22 13:35 3 10/02/22 11:55 3 10/02/22 09:20 3 10/02/22 07:50 3 10/02/22 07:25 3 10/02/22 03:15 10/02/22 03:20 4 Laboratory Results 10/02/22 10/02/22 10/02/22 Range/Units 11:44 07:41 05:35 WBC (4.8-10.8) K/ul RBC (4.63-6.08) M/uL Hgb (14.0-18.0) g/dl Hct (40.1-51.0) % MCV (80.0-100.0) fL MCH (25.0-34.0) pg MCHC (32.0-36.0) g/dL RDW Std Deviation (36.4-46.3) fL RDW Coeff of [place] (11.5-14.5) % Plt Count (130-400) K/uL MPV (9.4-12.4) fL Immature Gran % (Auto) % Neut % (Auto) % Lymph % (Auto) % [place] % (Auto) % Eos % (Auto) % Baso % (Auto) % Neut # (Auto) (1.4-6.5) K/uL Lymph # (Auto) (1.2-3.4) K/uL [place] # (Auto) (0.24-0.82) K/uL Eos # (Auto) (0-0.50) K/uL Baso # (Auto) (0-0.2) K/uL Immature Gran # (Auto) (0.00-0.02) K/uL Sodium 137 (136-145) mmol/L Potassium 4.4 (3.5-5.1) mmol/L Chloride 104 (98-107) mmol/L Carbon Dioxide 25 (21-32) mmol/L Anion Gap 8 (3-11) BUN 106 H (6-23) mg/dl Creatinine 2.11 H (0.6-1.4) mg/dl Est Cr Clr Drug Dosing 23.4 ml/min Est GFR ( Amer) 31.4 ml/min Est GFR (Non-Af Amer) 27.1 ml/min BUN/Creatinine Ratio 50.2 H (10-20) Glucose 152 H (70-99(Fasting)) mg/dl POC Glucose 147 H 141 H (70-99) mg/dl Calcium 9.8 (8.5-10.1) mg/dl Magnesium 2.8 H (1.7-2.4) mg/dl C-Reactive Protein 2.42 H (0-0.5) mg/dl 10/02/22 10/01/22 10/01/22 Range/Units 05:35 20:21 16:52 WBC 8.63 (4.8-10.8) K/ul RBC 3.65 L (4.63-6.08) M/uL Hgb 11.0 L (14.0-18.0) g/dl Hct 32.2 L (40.1-51.0) % MCV 88.2 (80.0-100.0) fL MCH 30.1 (25.0-34.0) pg MCHC 34.2 (32.0-36.0) g/dL RDW Std Deviation 44.8 (36.4-46.3) fL RDW Coeff of [place] 14.0 (11.5-14.5) % Plt Count 250 (130-400) K/uL MPV 11.4 (9.4-12.4) fL Immature Gran % (Auto) 2.0 % Neut % (Auto) 76.7 % Lymph % (Auto) 7.6 % [place] % (Auto) 13.4 % Eos % (Auto) 0.1 % Baso % (Auto) 0.2 % Neut # (Auto) 6.61 H (1.4-6.5) K/uL Lymph # (Auto) 0.66 L (1.2-3.4) K/uL [place] # (Auto) 1.16 H (0.24-0.82) K/uL Eos # (Auto) 0.01 (0-0.50) K/uL Baso # (Auto) 0.02 (0-0.2) K/uL Immature Gran # (Auto) 0.17 H (0.00-0.02) K/uL Sodium (136-145) mmol/L Potassium (3.5-5.1) mmol/L Chloride (98-107) mmol/L Carbon Dioxide (21-32) mmol/L Anion Gap (3-11) BUN (6-23) mg/dl Creatinine (0.6-1.4) mg/dl Est Cr Clr Drug Dosing ml/min Est GFR ( Amer) ml/min Est GFR (Non-Af Amer) ml/min BUN/Creatinine Ratio (10-20) Glucose (70-99(Fasting)) mg/dl POC Glucose 191 H 174 H (70-99) mg/dl Calcium (8.5-10.1) mg/dl Magnesium (1.7-2.4) mg/dl C-Reactive Protein (0-0.5) mg/dl PG Care Time/CCT Total # of Minutes Spent Total Time Spent with Patient: Total time spent is greater than 50% in coordination of care (as documented) at patient's floor/unit and/or counseling patient: Coding Level of Care Code 23643 SUB INP/OBS CARE 3/50MIN Diagnoses Pneumonia J18.9 Chronic diastolic congestive heart failure I50.32 COPD (chronic obstructive pulmonary disease) J44.[address] segment changes on electrocardiogram R94.31 Severe pulmonary hypertension I27.20 Permanent atrial fibrillation I48.21 Parkinson's disease G20 PAD (peripheral artery disease) I73.9 Hypertension I10 Hypothyroidism E03.9 Anemia D64.9 Apnea, sleep G47.33 Sleep apnea type: obstructive Chronic kidney disease, stage IV (severe) N18.4 NSVT (nonsustained ventricular tachycardia) I47.29 (1) Apnea, sleep Sleep apnea type: obstructive Qualified Code(s): G47.33 - Obstructive sleep apnea (adult) (pediatric)
[2022-10-02 15:47] LABS: Albumin Level 3.5 gm/dl (3.4-5.0); Bilirubin Direct 0.2 mg/dl (0-0.2); Bilirubin,Total 0.7 mg/dl (0.2-1.0); Total Protein 6.2 gm/dl (6.0-8.3)
--- NOTE | 2022-10-02 16:44 | Electrocardiogram Report ---
Test Reason : Blood Pressure : / mmHG Vent. Rate : 070 BPM Atrial Rate : 250 BPM P-R Int : 000 ms QRS Dur : 086 ms QT Int : 464 ms P-R-T Axes : 000 016 250 degrees QTc Int : 501 ms Suspect unspecified pacemaker failure Atrial fibrillation with intermittent electronic ventricular pacing. Chronic T-wave inversion in multiple leads Prolonged QT Abnormal ECG When compared with ECG of 29-SEP-2022 06:16, HR has increased by 9 bpm Otherwise no significant change Confirmed by Albert Vega ([id number]) on 10/02/2022 4:43:58 PM Referred By: REFERRED SELF Confirmed By:Albert Vega
--- NOTE | 2022-10-02 17:06 | Ultrasound Report ---
US gallbladder CLINICAL HISTORY: anorexia,assess for cholecystitis TECHNIQUE: Multiple real-time sonographic images of the right upper quadrant were obtained. Comparison: Comparison is made to MRA 01/01/2007 FINDINGS: The liver is diffusely homogenous with normal contour and echogenicity. No focal mass lesions are see n. No intrahepatic ductal dilatation is seen. No gallstones or sludge are identified within the g allbladder. The gallbladder wall is not thickened. There is no pericholecystic fluid present. A sonog raphic Mckeon's sign was not elicited by the product/device technologist. The common duct measures 0.[address] at the level of the hepatic artery. The visualized portions of the pancreas appear normal. The right kidney shows normal echogenicity, cortical thickness and renal contour. The right kidney sh ows no evidence of hydronephrosis or mass. No ascites or free fluid is seen in Barbour's pouch. Incidental note is made of a pleural effusion o n the right. IMPRESSION: Right pleural effusion. No evidence of acute cholecystitis. ACT 112: Negative or not required by law. Electronically signed by: Bubba Charlton M.D. 10/02/2022 5:05 PM
[2022-10-02] MEDS: LANTUS PER UNIT CHARGE SQ SCH (21:05)
[2022-10-02] MEDS: EZETIMIBE/SIMVASTATIN 10/20 TAB PO SCH (21:07)
[2022-10-03] MEDS: CEFEPIME 1,000 MG in SYRINGE 0 ML IV SCH ×2 (02:27→14:07)
[2022-10-03] MEDS: LEVOTHYROXINE SODIUM 100 MCG TABLET PO SCH (05:54)
[2022-10-03] MEDS: ALBUT/IPRATROP 3MG/0.5MG NEB 3 ML VIAL NEB SCH ×3 (07:22→19:05)
[2022-10-03 07:29] LABS: Basophils # (auto) 0.01 K/uL (0-0.2); Basophils % (auto) 0.1 %; Hematocrit (blood only) 30.7 % (40.1-51.0); Hemoglobin 10.5 g/dl (14.0-18.0); Immature Granulocytes # (auto) 0.19 K/uL (0.00-0.02); Lymphocytes # (auto) 0.59 K/uL (1.2-3.4); Lymphocytes % (auto) 6.1 %; Mean Corpuscular Hemoglobin 30.2 pg (25.0-34.0); Mean Corpuscular Hgb Conc 34.2 g/dL (32.0-36.0); Mean Corpuscular Volume 88.2 fL (80.0-100.0); Mean Platelet Volume 11.4 fL (9.4-12.4); Monocytes # (auto) 1.08 K/uL (0.24-0.82); Monocytes % (auto) 11.2 %; Neutrophils # (auto) 7.79 K/uL (1.4-6.5); Neutrophils % (auto) 80.6 %; Platelet Count 249 K/uL (130-400); RDW Coefficient of Variation 14.2 % (11.5-14.5); RDW Standard Deviation 45.5 fL (36.4-46.3); Red Blood Count 3.48 M/uL (4.63-6.08); White Blood Count 9.66 K/ul (4.8-10.8)
[2022-10-03 07:52] LABS: Albumin Globulin Ratio 1.3 (0.9-2); Albumin Level 3.4 gm/dl (3.4-5.0); Bilirubin,Total 0.8 mg/dl (0.2-1.0); Calcium 9.3 mg/dl (8.5-10.1); Creatinine Clr Calc Pharmacy 24.2 ml/min; Est GFR (African American) 32.7 ml/min; Est GFR (Non-African American) 28.3 ml/min; Globulin 2.6 gm/dl (2.5-4.0); Magnesium 2.8 mg/dl (1.7-2.4); Potassium 4.5 mmol/L (3.5-5.1)
[2022-10-03] MEDS: INSULIN ASPART PER UNIT SC SCH ×4 (09:04→21:36)
[2022-10-03] MEDS: predniSONE 10 MG TABLET PO SCH (09:08)
[2022-10-03] MEDS: guaiFENesin 600 MG TABCR PO SCH ×2 (09:08→21:27)
[2022-10-03] MEDS: allopurinoL 100 MG TAB PO SCH (09:09)
[2022-10-03] MEDS: amLODIPine BESYLATE 5 MG TAB PO SCH (09:09)
[2022-10-03] MEDS: CLOPIDOGREL BISULFATE 75 MG TAB PO SCH (09:10)
[2022-10-03] MEDS: CARBIDOPA/LEVODOPA 25/100MG TAB PO SCH ×3 (09:10→21:28)
[2022-10-03] MEDS: DABIGATRAN ETEXILATE 75 MG CAP PO SCH ×2 (09:10→21:27)
[2022-10-03] MEDS: cloNIDine HCL 0.1 MG TAB PO SCH ×3 (09:10→21:28)
[2022-10-03] MEDS: CEROVITE ADV FORMULA TAB PO SCH (09:11)
[2022-10-03] MEDS: CALCIUM 600MG + VIT D 400 IU TAB PO SCH (13:37)
--- NOTE | 2022-10-03 16:53 | Hospitalist Progress Note ---
Date of Service October 03, 2022 Assessment & Plan (1) Pneumonia: Plan: RUL initially, then repeat cxr with RLL infiltrate as well. This was despite 5 days each of rocephin/doxy. Was changed to Cefepime and doxy on 09/28 CRP remained high & unchanged initially, but now trending downward. O2 requirement-did require as much as 6 L NC O2 early in stay, now weaned to 3LNC and remains on 3L Aspiration unlikely - speech therapy evaluated - no dysphagia noted. checked MRSA swab - negative but doxycycline will cover for MRSA regardless checked respiratory BioFire - negative. Dyspnea improving but remains and no improvement for several days, still with low energy and low appetite. Is afebrile CXR 10/01 with increasing infiltrates now also on the left lower lobe,not improving Urine legionella ag is negative His weight is up quite a bit-suspect there is some volume overload as well. Has developed some peripheral edema with being off of his usual Lasix -Give Lasix 20 Mg IV x1 now -Continue IV cefepime, now completed a course of doxycycline -QT is prolonged and cannot add on azithromycin -Continue scheduled DuoNebs 3 times daily -not producing sputum so no culture obtained -continue flutter valve -Follow chest x-ray to resolution -continue prednisone burst and now will taper down to 30mg on 10/03 -continue supplemental O2 and wean off as able to-will need 2 step walk test prior to discharge -will consult pulmonology for further evaluation and management given no improvement in respiratory status (2) Chronic diastolic congestive heart failure: Plan: acute/chronic HFpEF - acute component resolved. Creatinine climbed up to 2.47, BUN also elevated but also on steroids Now abap developer improved after 500mL NS given on 09/30, abap developer now down to baseline 2.1 With evidence of volume overload as above with increasing weight, developing peripheral edema, and continued dyspnea Give Lasix 20 Mg IV x1 on 10/03 Follow BMP in am Echo 11/12: EF 50-55%, left ventricular systolic function low normal, no regional WMA, RV mildly dilated, RV systolic function normal, severe pulmonary hypertension and moderately dilated IVC, moderate tricuspid regurg. Echo this admission largely unchanged (3) COPD (chronic obstructive pulmonary disease): Plan: with exacerbation PFTs 2021 with mild obstruction, poor bronchodilator response due to ongoing cough/wheezing/dyspnea -giving prednisone burst and taper cont nebs prn cont pulmonary toilet Consult pulmonology (4) Anorexia: Plan: Likely 2nd to pneumonia Continues to have very low appetite below his usual-severe added boost BID added MVI prednisone not helping LFTs normal and RUQ US to r/o GB issues-normal Some improvement with eating soup on 10/03 Is moving bowels (5) ST segment changes on electrocardiogram: Plan: admission EKG - inferior ST changes but NO ischemic symptoms and troponins negative - although he mentioned vague episode of chest pain pre-hospital sometime in the last couple of weeks with that said he walks 2-3 miles EVERY DAY without limiting dyspnea, chest pain, etc. he has presumed CAD (numerous CAD risk factors, etc) but no cath to definitively diagnose such - high-sensitivity troponin was negative x2 this admission cont plavix cont simvastatin/zetia unfortunately, even if we wanted to perform stress test at this time, this is not ideal timing due to above issues (acute/chronic CHF, pneumonia, etc) EKG -- pacing; ST changes laterally are chronic (6) Severe pulmonary hypertension: Plan: cont night-time CPAP at discharge will assess for ambulatory O2 needs given the severity of his pulm HTN (7) Permanent atrial fibrillation: Plan: S/p single-chamber pacer placement 2010. Continue Pradaxa 75mg BID. Is not on BB or CCB therapy at baseline. (8) Parkinson's disease: Plan: Continue Sinemet. Appreciate speech therapy eval -- > no dysphagia seen. (9) PAD (peripheral artery disease): Plan: Continue simvastatin and ezetimibe along with Plavix. (10) Hypertension: Plan: Continue amlodipine, clonidine. Most readings acceptable. (11) Hypothyroidism: Plan: Continue levothyroxine. TSH earlier in 2021 wnl. (12) Anemia: Plan: Mild Secondary to CKD stable H/H with hemoglobin 10.5 (13) Apnea, sleep: Plan: CPAP at night. (14) Chronic kidney disease, stage IV (severe): Plan: baseline CrCl 20s baseline Cr 1.8 Acute kidney injury as above, now improving (15) NSVT (nonsustained ventricular tachycardia): Plan: brief episode (<10 beats) several days ago -- no symptoms from such recent echo with preserved EF and no LV wall motion abnormalities K wnl Mag wnl have since transitioned off telemetry Plan DVT proph - pradaxa PT, OT evals appreciated-recommend home / 13/04 care if can improve closer to goals vs rehab. Pt declines to go to rehab. Continue PT/OT as often as possible Disposition-continued stay for ongoing dyspnea, treatment of PNA, heart failure Admission and Anticipated Discharge Date Admission Date: September 24, 2022 Subjective Still does not feel much better. Still dyspneic at rest and with exertion, poor appetite but finally able to eat some soup. Is coughing but not bringing up any sputum Moving bowels. Review of Systems Review of Systems: All systems reviewed & are unremarkable except as noted in HPI & below Physical Exam Physical Exam: gen - NAD, alert, awake, oriented to person and place, and time heart - RRR, s1 s2, 2/6 systolic murmur lungs -unlabored breathing, positive crackles at the left lower and middle lung milan as well as right middle lung field, no wheezing abd - soft NT ND BS+ ext -trace edema left leg greater than right Skin no rashes Results & Data Results & Data ([facility]) Vital Signs (Past 12 Hours) Vital Signs Temp Pulse Resp BP Pulse Ox O2 Del Method O2 Flow Rate 10/03/22 11:30 Nasal Cannula 3 10/03/22 15:18 36.5 C 66 18 132/61 91 Nasal Cannula 3 10/03/22 14:09 60 18 90 Nasal Cannula 3 10/03/22 10:57 36.5 C 63 20 151/63 H 93 Nasal Cannula 3 10/03/22 07:23 36.5 C 58 L 18 148/68 H 92 Nasal Cannula 2 10/03/22 07:23 62 18 92 Nasal Cannula 3 Laboratory Results 10/03/22 10/03/22 10/03/22 Range/Units 20:11 16:09 11:23 WBC (4.8-10.8) K/ul RBC (4.63-6.08) M/uL Hgb (14.0-18.0) g/dl Hct (40.1-51.0) % MCV (80.0-100.0) fL MCH (25.0-34.0) pg MCHC (32.0-36.0) g/dL RDW Std Deviation (36.4-46.3) fL RDW Coeff of Italo (11.5-14.5) % Plt Count (130-400) K/uL MPV (9.4-12.4) fL Immature Gran % (Auto) % Neut % (Auto) % Lymph % (Auto) % Charlotte % (Auto) % Eos % (Auto) % Baso % (Auto) % Neut # (Auto) (1.4-6.5) K/uL Lymph # (Auto) (1.2-3.4) K/uL Charlotte # (Auto) (0.24-0.82) K/uL Eos # (Auto) (0-0.50) K/uL Baso # (Auto) (0-0.2) K/uL Immature Gran # (Auto) (0.00-0.02) K/uL Sodium (136-145) mmol/L Potassium (3.5-5.1) mmol/L Chloride (98-107) mmol/L Carbon Dioxide (21-32) mmol/L Anion Gap (3-11) BUN (6-23) mg/dl Creatinine (0.6-1.4) mg/dl Est Cr Clr Drug Dosing ml/min Est GFR ( Amer) ml/min Est GFR (Non-Af Amer) ml/min BUN/Creatinine Ratio (10-20) Glucose (70-99(Fasting)) mg/dl POC Glucose 192 H 182 H 142 H (70-99) mg/dl Calcium (8.5-10.1) mg/dl Magnesium (1.7-2.4) mg/dl Total Bilirubin (0.2-1.0) mg/dl AST (13-39) U/L ALT (7-52) U/L Alkaline Phosphatase (34-104) U/L Total Protein (6.0-8.3) gm/dl Albumin (3.4-5.0) gm/dl Globulin (2.5-4.0) gm/dl Albumin/Globulin Ratio (0.9-2) 10/03/22 10/03/22 10/03/22 Range/Units 07:37 06:56 06:56 WBC 9.66 (4.8-10.8) K/ul RBC 3.48 L (4.63-6.08) M/uL Hgb 10.5 L (14.0-18.0) g/dl Hct 30.7 L (40.1-51.0) % MCV 88.2 (80.0-100.0) fL MCH 30.2 (25.0-34.0) pg MCHC 34.2 (32.0-36.0) g/dL RDW Std Deviation 45.5 (36.4-46.3) fL RDW Coeff of Italo 14.2 (11.5-14.5) % Plt Count 249 (130-400) K/uL MPV 11.4 (9.4-12.4) fL Immature Gran % (Auto) 2.0 % Neut % (Auto) 80.6 % Lymph % (Auto) 6.1 % Charlotte % (Auto) 11.2 % Eos % (Auto) 0.0 % Baso % (Auto) 0.1 % Neut # (Auto) 7.79 H (1.4-6.5) K/uL Lymph # (Auto) 0.59 L (1.2-3.4) K/uL Charlotte # (Auto) 1.08 H (0.24-0.82) K/uL Eos # (Auto) 0.00 (0-0.50) K/uL Baso # (Auto) 0.01 (0-0.2) K/uL Immature Gran # (Auto) 0.19 H (0.00-0.02) K/uL Sodium 138 (136-145) mmol/L Potassium 4.5 (3.5-5.1) mmol/L Chloride 105 (98-107) mmol/L Carbon Dioxide 25 (21-32) mmol/L Anion Gap 8 (3-11) BUN 106 H (6-23) mg/dl Creatinine 2.04 H (0.6-1.4) mg/dl Est Cr Clr Drug Dosing 24.2 ml/min Est GFR ( Amer) 32.7 ml/min Est GFR (Non-Af Amer) 28.3 ml/min BUN/Creatinine Ratio 52.0 H (10-20) Glucose 142 H (70-99(Fasting)) mg/dl POC Glucose 143 H (70-99) mg/dl Calcium 9.3 (8.5-10.1) mg/dl Magnesium 2.8 H (1.7-2.4) mg/dl Total Bilirubin 0.8 (0.2-1.0) mg/dl AST 18 (13-39) U/L ALT 3 L (7-52) U/L Alkaline Phosphatase 54 (34-104) U/L Total Protein 6.0 (6.0-8.3) gm/dl Albumin 3.4 (3.4-5.0) gm/dl Globulin 2.6 (2.5-4.0) gm/dl Albumin/Globulin Ratio 1.3 (0.9-2) PG Care Time/CCT Total # of Minutes Spent Total Time Spent with Patient: Total time spent is greater than 50% in coordination of care (as documented) at patient's floor/unit and/or counseling patient: Coding Level of Care Code 14311 SUB INP/OBS CARE 235MIN Diagnoses Pneumonia J18.9 Chronic diastolic congestive heart failure I50.32 COPD (chronic obstructive pulmonary disease) J44.[address] segment changes on electrocardiogram R94.31 Severe pulmonary hypertension I27.20 Permanent atrial fibrillation I48.21 Parkinson's disease G20 PAD (peripheral artery disease) I73.9 Hypertension I10 Hypothyroidism E03.9 Anemia D64.9 Apnea, sleep G47.33 Sleep apnea type: obstructive Chronic kidney disease, stage IV (severe) N18.4 NSVT (nonsustained ventricular tachycardia) I47.29 (1) Apnea, sleep Sleep apnea type: obstructive Qualified Code(s): G47.33 - Obstructive sleep apnea (adult) (pediatric)
[2022-10-03] MEDS ORDERED: FUROSEMIDE INJ 20 MG/2 ML VIAL IV ONE (16:56)
[2022-10-03] MEDS: EZETIMIBE/SIMVASTATIN 10/20 TAB PO SCH (21:27)
[2022-10-03] MEDS: LANTUS PER UNIT CHARGE SQ SCH (21:36)
[2022-10-04] MEDS: CEFEPIME 1,000 MG in SYRINGE 0 ML IV SCH ×2 (02:33→13:11)
[2022-10-04] MEDS: LEVOTHYROXINE SODIUM 100 MCG TABLET PO SCH (05:44)
[2022-10-04 06:29] LABS: BUN Creatinine Ratio 47.9 (10-20); Calcium 9.1 mg/dl (8.5-10.1); Creatinine Clr Calc Pharmacy 22.6 ml/min; Est GFR (African American) 30.1 ml/min; Est GFR (Non-African American) 25.9 ml/min; Magnesium 2.7 mg/dl (1.7-2.4); Potassium 4.1 mmol/L (3.5-5.1)
[2022-10-04] MEDS: ALBUT/IPRATROP 3MG/0.5MG NEB 3 ML VIAL NEB SCH ×3 (07:02→20:12)
[2022-10-04] MEDS ORDERED: FUROSEMIDE INJ 20 MG/2 ML VIAL IV ONE (08:28)
[2022-10-04] MEDS: DABIGATRAN ETEXILATE 75 MG CAP PO SCH ×2 (08:48→21:15)
[2022-10-04] MEDS: CEROVITE ADV FORMULA TAB PO SCH (08:48)
[2022-10-04] MEDS: cloNIDine HCL 0.1 MG TAB PO SCH ×3 (08:48→21:15)
[2022-10-04] MEDS: CARBIDOPA/LEVODOPA 25/100MG TAB PO SCH ×3 (08:48→21:15)
[2022-10-04] MEDS: CLOPIDOGREL BISULFATE 75 MG TAB PO SCH (08:49)
[2022-10-04] MEDS: predniSONE 10 MG TABLET PO SCH (08:49)
[2022-10-04] MEDS: allopurinoL 100 MG TAB PO SCH (08:49)
[2022-10-04] MEDS: amLODIPine BESYLATE 5 MG TAB PO SCH (08:49)
[2022-10-04] MEDS: guaiFENesin 600 MG TABCR PO SCH ×2 (08:49→21:14)
[2022-10-04] MEDS: INSULIN ASPART PER UNIT SC SCH ×4 (08:54→21:25)
--- NOTE | 2022-10-04 09:51 | XRay Report ---
XR chest 2V PA/lateral CLINICAL HISTORY: f/u PNA TECHNIQUE: 2 views of the chest were obtained. Comparison: Comparison is made to chest radiograph 10/01/2022 FINDINGS: Pacemaker is seen. Cardiomegaly is noted. The aortic arch is calcified. Multifocal airspace opacities are seen. Small bilateral pleural effusions are seen. IMPRESSION: Multifocal airspace opacities may represent atelectasis, pneumonia, and/or aspiration. ACT 112: Negative or not required by law. Electronically signed by: Bubba Charlton M.D. 10/04/2022 9:49 AM
--- NOTE | 2022-10-04 11:14 | Pulmonary Consultation ---
Date of Consultation October 04, 2022 Assessment & Plan (1) Pneumonia: (2) COPD (chronic obstructive pulmonary disease): (3) Severe pulmonary hypertension: (4) Acute respiratory failure with hypoxia: (5) Acute on chronic heart failure with preserved ejection fraction (HFpEF): (6) Abnormal CT scan of lung: Plan Impression: 86-year-old male with mild airflow obstruction and borderline sleep disordered breathing admitted with pulmonary infiltrates and hypoxemia. His procalcitonin is been normal and he is completed courses of antibiotics without significant improvement. He did have pleural effusions identified on his initial CT scan and atypical pulmonary edema would be on the differential. Atypical infectious etiologies, inflammatory etiologies, atypical heart failure, and pulmonary hemorrhage would all be in the differential. Recommendations: 1. Abnormal CT scan: Recommend repeating the patient's BNP level. Check Fungitell. Check LDH. check UA. The patient does not have risk factors for other unusual infections including PJP although that would be on the di fferential. Nontuberculous mycobacterial infections would also be on the differential. With the pleural effusions noted on presentation, and more suspicious of a potential volume related issues. The patient is not really expectorating sputum so obtaining a sputum culture may be difficult. If he fails to respond, consideration for bronchoscopy with BAL might be appropriate. 2. Borderline sleep disordered breathing: Continue CPAP at night as long as the patient feels it is beneficial. 3. Mild obstructive lung disease: The patient does not appear bronchospastic currently. Do not think this is significantly contributing to the abnormal imaging studies or the patient's clinical symptoms. Continue inhalers at this point time. Patient is already been placed on high-dose steroids which would treat most inflammatory issues. I think his steroids can likely be rapidly tapered at this point time. 4. Hypoxemia: Continue oxygen titrated to keep saturations at around 90%. 5. Speech therapy indicated that if chest x-ray is worsening, video swallow might be warranted. I do think his chest x-ray is progressed and would recommend reengage in speech therapy for a formal video swallow evaluation Will continue to follow with you. History of Present Illness Attending Physician: Jojo Landaverde MD History of Present Illness Asked by hospitalist to evaluate this patient with hypoxemic respiratory failure obstructive lung disease and sleep disordered breathing admitted with pulmonary infiltrates and pneumonia. I have the opportunity of caring for the patient in the outpatient setting for his mild obstructive lung disease and borderline sleep disordered breathing. Patient is an 86-year-old male who presented to the facility 09/24/2022 with complaints of 3 to 4 days of shortness of breath. No significant cough congestion fevers chills. He is on a fairly high dose of Lasix. He is not noted any orthopnea. He was admitted with a presumptive diagnosis of pneumonia. He was started on Rocephin and azithromycin. He been on high-dose of Lasix. He has known diastolic dysfunction. Patient has about a [id number] history of tobacco abuse but quit smoking over 30 years ago. He is coughed up a small amount of clearish yellow phlegm. He is never had significant leukocytosis or fever while in the hospital. BNP has been elevated at 837. Procalcitonin on presentation was negative at 0.11 and follow-up performed 7 days later was also normal at 0.13. Chest x-ray today demonstrated patchy parenchymal airspace opacities more prominent on the right than the left. These appear progressed compared to prior chest x-ray from 10/01/2022. The patient denies any swallowing difficulties or aspiration. He is retired and worked in [employer]. He had no significant occupational or environmental exposures. He lives in [place] with his spouse. He has no pets at home. No other occupational or environmental exposures that he is aware of. Allergies Allergy/AdvReac Type Severity Reaction Status Date / Time hydralazine AdvReac Severe anorexia,h/ Verified 08/27/22 14:25 a,nausea,pa lpitations Home Medications Medication Instructions Recorded Confirmed Type CPAP Machine #10 ea 07/13/19 09/24/22 Rx CPAP Machine #1 ea 04/24/20 09/24/22 Rx nitroglycerin 0.4 mg sublingual 0.4 mg buccal UD PRN Chest Pain 01/08/21 09/24/22 Rx tablet (Nitrostat) #25 tabs levothyroxine 100 mcg tablet 100 mcg PO QAM #90 tabs 02/11/22 09/24/22 Rx clopidogrel 75 mg tablet 75 mg PO QAM #90 tabs 05/01/22 09/24/22 Rx potassium chloride 20 mEq 20 meq PO DAILY #90 tabs 05/06/22 09/24/22 Rx tablet,extended release allopurinol 100 mg tablet 200 mg PO QAM #180 tabs 06/30/22 09/24/22 Rx amlodipine 10 mg tablet 10 mg PO QAM #90 tabs 06/30/22 09/24/22 Rx clonidine HCl 0.2 mg tablet 0.2 mg PO TID #540 tabs 06/30/22 09/24/22 Rx furosemide 40 mg tablet 120 mg PO QAM #270 tabs 06/30/22 09/24/22 Rx dabigatran etexilate 75 mg capsule 75 mg PO BID #180 caps 07/28/22 09/24/22 Rx ezetimibe 10 mg-simvastatin 20 mg 1 tab PO HS #90 tabs 07/28/22 09/24/22 Rx tablet carbidopa 25 mg-levodopa 100 mg 1 tab PO TID 90 days #270 tabs 08/27/22 09/24/22 Rx tablet Patient History Medical History (Updated 10/04/22 @ 11:04 by Jaime Elaine MD) Anticoagulant long-term use Carotid artery stenosis Chronic constipation Chronic kidney disease, stage 3 (moderate) Dyslipidemia Former smoker GERD (gastroesophageal reflux disease) Gout History of DVT (deep vein thrombosis) HTN (hypertension) Hypothyroid Pacemaker (01/2021) Parkinson's disease Permanent atrial fibrillation Pleural effusion Subdural hematoma (2006) Surgical History H/O vasectomy History of appendectomy History of renal stent (2006) Right History of renal stent (2008) Left Hx of tonsillectomy S/P carotid endarterectomy (1994) S/P insertion of inferior vena caval filter Family History Father Diabetes Denies family history of Ovarian cancer Prostate cancer Myocardial infarction Breast cancer Lung cancer Colorectal cancer Stroke Social History Smoking Status: Former smoker Age Started Using Tobacco: 12; Age Quit Using Tobacco: 53; packs per day: 1; Cigarettes Per Day: 20; Second Hand Exposure: No; Hx Alcohol Use: Yes Alcohol type: beer Hx Substance Use: No Preferred Language: Ukrainian Communication Ability: Effective Visual Impairment: No Limitations Hearing Ability: Normal Wall And Floor Tiler Required: No Beliefs That Will Affect Care: None marital status: Current Living Situation: Spouse Current Living Situation Comment: from home current occupational status: retired Feels Safe at Home: Yes Childhood Exposure to Second-Hand Smoke: Yes during the past year weight has: remained stable Physical Activity Frequency: Daily Physical Activity Frequency Comment: walks a mile every day in nice weather Seatbelt Use: always Assistive Devices: None Review of Systems Review of Systems: Please refer to hospitalist notes. No additions or de letions Physical Exam Constitutional: WD/WN, vitals as above Neck: trachea midline, no thyromegaly Respiratory: no respiratory distress, no labored breathing, no cough and not tachypneic Auscultation: + crackles; no wheezes Cardiovascular: RRR, no murmur, no edema Gastrointestinal (Abdomen): normal bowel sounds, soft, nontender, no hepatosplenomegaly Musculoskeletal: Extremities: extremities normal to inspection Skin: no rashes, warm and dry Neurologic: Nonfocal exam Lymphatic: no cervical lymphadenopathy Results & Data Results & Data ([facility]) Vital Signs (Past 12 Hours) Vital Signs Temp Pulse Pulse Resp BP Pulse Ox O2 Del Method 10/04/22 07:21 36.0 C L 63 16 144/62 H 92 Nasal Cannula 10/04/22 07:02 67 18 91 Nasal Cannula 10/04/22 03:25 65 24 93 10/04/22 03:15 36.4 C L 63 16 136/56 L 95 CPAP 10/03/22 23:33 36.5 C 62 18 138/59 L 95 Room Air O2 Flow Rate 10/04/22 07:21 3 10/04/22 07:02 3 10/04/22 03:25 3 10/04/22 03:15 10/03/22 23:33 Critical Care Results & Data Vital Signs (Past 12 Hours) Vital Signs Temp Pulse Pulse Resp BP Pulse Ox O2 Del Method 10/04/22 07:21 36.0 C L 63 16 144/62 H 92 Nasal Cannula 10/04/22 07:02 67 18 91 Nasal Cannula 10/04/22 03:25 65 24 93 10/04/22 03:15 36.4 C L 63 16 136/56 L 95 CPAP 10/03/22 23:33 36.5 C 62 18 138/59 L 95 Room Air O2 Flow Rate 10/04/22 07:21 3 10/04/22 07:02 3 10/04/22 03:25 3 10/04/22 03:15 10/03/22 23:33 Lab & Micro Results (Past 24 Hours) No Data to Display Na 137 mmol/L (136-145) 10/04/22 K 4.1 mmol/L (3.5-5.1) 10/04/22 Cl 106 mmol/L (98-107) 10/04/22 CO2 26 mmol/L (21-32) 10/04/22 Anion Gap 5 (3-11) 10/04/22 BUN 105 mg/dl (6-23) H 10/04/22 Creatinine 2.19 mg/dl (0.6-1.4) H 10/04/22 Estimated GFR ( Amer) 30.1 ml/min 10/04/22 Estimated GFR (Non-Af Amer) 25.9 ml/min 10/04/22 BUN/Creatinine Ratio 47.9 (10-20) H 10/04/22 Glu 149 mg/dl (70-99(Fasting)) H 10/04/22 Ca 9.1 mg/dl (8.5-10.1) 10/04/22 Mg 2.7 mg/dl (1.7-2.4) H 10/04/22 05:30 Calcium Level 9.1 mg/dl (8.5-10.1) 10/04/22 05:30 Diagnostic Findings (Past 24 Hours) Chest X-Ray 10/04/22 08:29 XR chest 2V PA/lateral CLINICAL HISTORY: f/u PNA TECHNIQUE: 2 views of the chest were obtained. Comparison: Comparison is made to chest radiograph 10/01/2022 FINDINGS: Pacemaker is seen. Cardiomegaly is noted. The aortic arch is calcified. Multifocal airspace opacities are seen. Small bilateral pleural effusions are seen. IMPRESSION: Multifocal airspace opacities may represent atelectasis, pneumonia, and/or aspiration. ACT 112: Negative or not required by law. Electronically signed by: Bubba Charlton M.D. 10/04/2022 9:49 AM I & O Totals 24 Hours 10/03/22 10/04/22 10/05/22 06:59 06:59 06:59 Intake Total 580 / 580 780 / 780 Output Total 1690 / 1690 1575 / 1575 Balance -1110 / -1110 -795 / -795 Cumulative 09/24/22 08:20 thru 10/04/22 06:00 Intake Total 00551.000 Output Total 47802 Balance -25.000 RT Ventilator Mngmt (Last Documented) Ventilator Ordered Settings Respiratory Rate 16 10/04/22 07:21 Ventilator - PT Measurements Respiratory Rate 16 PG Care Time/CCT Total # of Minutes Spent Total Time Spent with Patient: Total time spent is greater than 50% in coordination of care (as documented) at patient's floor/unit and/or counseling patient: Coding Level of Care Code 36361 INT INP/OBS CARE 375MIN Diagnoses Pneumonia J18.9 COPD (chronic obstructive pulmonary disease) J44.9 Severe pulmonary hypertension I27.20 Acute respiratory failure with hypoxia J96.01 Acute on chronic heart failure with preserved ejection fraction (HFpEF) I50.[address] scan of lung R91.8
--- NOTE | 2022-10-04 13:03 | Hospitalist Progress Note ---
Date of Service October 04, 2022 Assessment & Plan (1) Pneumonia: Plan: RUL initially, then repeat cxr with RLL infiltrate as well. This was despite 5 days each of rocephin/doxy. Was changed to Cefepime and doxy on 09/28 and still no improvement many days later CRP remained high & unchanged initially, but now trending downward. O2 requirement-did require as much as 6 L NC O2 early in stay, now weaned to 3LNC and remains on 3L with tachypnea at rest Aspiration unlikely - speech therapy evaluated - no dysphagia noted but withworsening of CXR findings, will ask toperform VFSS. checked MRSA swab - negative but doxycycline will cover for MRSA regardless checked respiratory BioFire - negative. still with low energy and low appetite. Is afebrile CXR 10/01 with increasing infiltrates now also on the left lower lobe,not improving Urine legionella ag is negative His weight is up quite a bit-suspect there is some volume overload as well. Has developed some peripheral edema with being off of his usual Lasix--gave IV lasix 20mg on 10/03 with good response -give another dose of IV lasix this AM BNP elevated in 800s CXR 10/04 with multifocal PNA, trace bilat pleural effusions Appreciate PULM consult -check LDH, BNP, UA, Fungitell -may need bronch -sputum sample finally [id number] follow -Continue IV cefepime, now completed a course of doxycycline -QT is prolonged and cannot add on azithromycin -Continue scheduled DuoNebs 3 times daily -continue flutter valve -Follow chest x-ray to resolution -continue prednisone burst and now will taper down to 30mg on 10/03-will go down to 20mg on 10/05 -continue supplemental O2 and wean off as able to-will need 2 step walk test prior to discharge -order VFSS for Thursday (2) Chronic diastolic congestive heart failure: Plan: acute/chronic HFpEF -initially given IV lasix and had rising stunt performer Creatinine climbed up to 2.47, BUN also elevated but also on steroids Now stunt performer improved after 500mL NS given on 09/30, stunt performer now down to baseline 2.1 With evidence of volume overload as above with increasing weight, developing peripheral edema, and continued dyspnea Gave Lasix 20 Mg IV x1 on 10/03 with good response stunt performer slightly up but ok to give another dose of IV lasix 10/04 Follow BMP in am Echo 11/12: EF 50-55%, left ventricular systolic function low normal, no regional WMA, RV mildly dilated, RV systolic function normal, severe pulmonary hypertension and moderately dilated IVC, moderate tricuspid regurg. Echo this admission largely unchanged (3) COPD (chronic obstructive pulmonary disease): Plan: with exacerbation PFTs 2021 with mild obstruction, poor bronchodilator response due to ongoing cough/wheezing/dyspnea -giving prednisone burst and taper cont nebs prn cont pulmonary toilet Consult pulmonology apprecaited (4) Anorexia: Plan: Likely 2nd to pneumonia Continues to have very low appetite below his usual-severe added boost BID, MVI prednisone not helping LFTs normal and RUQ US to r/o GB issues-normal Some improvement on 10/03 Is moving bowels (5) ST segment changes on electrocardiogram: Plan: admission EKG - inferior ST changes but NO ischemic symptoms and troponins negative - although he mentioned vague episode of chest pain pre-hospital sometime in the last couple of weeks with that said he walks 2-3 miles EVERY DAY without limiting dyspnea, chest pain, etc. he has presumed CAD (numerous CAD risk factors, etc) but no cath to definitively diagnose such - high-sensitivity troponin was negative x2 this admission cont plavix cont simvastatin/zetia unfortunately, even if we wanted to perform stress test at this time, this is not ideal timing due to above issues (acute/chronic CHF, pneumonia, etc) EKG -- pacing; ST changes laterally are chronic (6) Severe pulmonary hypertension: Plan: cont night-time CPAP at discharge will assess for ambulatory O2 needs given the severity of his pulm HTN (7) Permanent atrial fibrillation: Plan: S/p single-chamber pacer placement 2010. Continue Pradaxa 75mg BID. Is not on BB or CCB therapy at baseline. (8) Parkinson's disease: Plan: Continue Sinemet. Appreciate speech therapy eval -- > no dysphagia seen. (9) PAD (peripheral artery disease): Plan: Continue simvastatin and ezetimibe along with Plavix. (10) Hypertension: Plan: Continue amlodipine, clonidine. Most readings acceptable. (11) Hypothyroidism: Plan: Continue levothyroxine. TSH earlier in 2021 wnl. (12) Anemia: Plan: Mild Secondary to CKD stable H/H with hemoglobin 10.5 (13) Apnea, sleep: Plan: CPAP at night. (14) Chronic kidney disease, stage IV (severe): Plan: baseline CrCl 20s baseline Cr 1.8 Acute kidney injury as above (15) NSVT (nonsustained ventricular tachycardia): Plan: brief episode (<10 beats) several days ago -- no symptoms from such recent echo with preserved EF and no LV wall motion abnormalities K wnl Mag wnl have since transitioned off telemetry Plan DVT proph - pradaxa PT, OT evals appreciated-recommend home 13/04 care if can improve closer to goals vs rehab. Pt declines to go to rehab. Continue PT/OT as often as possible Disposition-continued stay for ongoing dyspnea, treatment of PNA, heart failure Admission and Anticipated Discharge Date Admission Date: September 24, 2022 Subjective Pt reports no better, no worse. Still SOB at rest. Was able to cough up small amount of sputum for sample. Appetite he says is poor but RN reports he ate more today then previously with small amount of pancake and oatmeal for breakfast and then full bowl of soup fo lunch. He reports no BM in 2-3 days. Making a lot of urine now since getting IV lasix Review of Systems Review of Systems: All systems reviewed & are unremarkable except as noted in HPI & below Physical Exam Physical Exam: gen - NAD, alert, awake, oriented to person and place, and time heart - RRR, s1 s2, 2/6 systolic murmur lungs -unlabored breathing, positive crackles at the left lower and middle lung milan as well as right upper lung field, no wheezing abd - soft NT ND BS+ ext -trace edema left leg greater than right, improved from yesterday; left forearm +pitting edema at previous IV site Skin no rashes, some bruising on arms at lab draw sites Results & Data Results & Data ([facility]) Vital Signs (Past 12 Hours) Vital Signs Temp Pulse Pulse Resp BP Pulse Ox O2 Del Method 10/04/22 12:55 84 18 96 Nasal Cannula 10/04/22 07:21 36.0 C L 63 16 144/62 H 92 Nasal Cannula 10/04/22 07:02 67 18 91 Nasal Cannula 10/04/22 03:25 65 24 93 10/04/22 03:15 36.4 C L 63 16 136/56 L 95 CPAP O2 Flow Rate 10/04/22 12:55 4 10/04/22 07:21 3 10/04/22 07:02 3 10/04/22 03:25 3 10/04/22 03:15 Laboratory Results 10/04/22 10/04/22 10/04/22 Range/Units 12:03 12:03 12:03 Sodium (136-145) mmol/L Potassium (3.5-5.1) mmol/L Chloride (98-107) mmol/L Carbon Dioxide (21-32) mmol/L Anion Gap (3-11) BUN (6-23) mg/dl Creatinine (0.6-1.4) mg/dl Est Cr Clr Drug Dosing ml/min Est GFR ( Amer) ml/min Est GFR (Non-Af Amer) ml/min BUN/Creatinine Ratio (10-20) Glucose (70-99(Fasting)) mg/dl POC Glucose (70-99) mg/dl Calcium (8.5-10.1) mg/dl Magnesium (1.7-2.4) mg/dl Lactate Dehydrogenase 242 (86-244) U/L B-Natriuretic Peptide 876 H (0-100) pg/ml Beta-(1,3)-D-Glucan Pending B-(1,3)-D-Glucan Intrp Pending 10/04/22 10/04/22 10/04/22 Range/Units 11:38 07:47 05:30 Sodium 137 (136-145) mmol/L Potassium 4.1 (3.5-5.1) mmol/L Chloride 106 (98-107) mmol/L Carbon Dioxide 26 (21-32) mmol/L Anion Gap 5 (3-11) BUN 105 H (6-23) mg/dl Creatinine 2.19 H (0.6-1.4) mg/dl Est Cr Clr Drug Dosing 22.6 ml/min Est GFR ( Amer) 30.1 ml/min Est GFR (Non-Af Amer) 25.9 ml/min BUN/Creatinine Ratio 47.9 H (10-20) Glucose 149 H (70-99(Fasting)) mg/dl POC Glucose 119 H 125 H (70-99) mg/dl Calcium 9.1 (8.5-10.1) mg/dl Magnesium 2.7 H (1.7-2.4) mg/dl Lactate Dehydrogenase (86-244) U/L B-Natriuretic Peptide (0-100) pg/ml Beta-(1,3)-D-Glucan B-(1,3)-D-Glucan Intrp 10/03/22 10/03/22 Range/Units 20:11 16:09 Sodium (136-145) mmol/L Potassium (3.5-5.1) mmol/L Chloride (98-107) mmol/L Carbon Dioxide (21-32) mmol/L Anion Gap (3-11) BUN (6-23) mg/dl Creatinine (0.6-1.4) mg/dl Est Cr Clr Drug Dosing ml/min Est GFR ( Amer) ml/min Est GFR (Non-Af Amer) ml/min BUN/Creatinine Ratio (10-20) Glucose (70-99(Fasting)) mg/dl POC Glucose 192 H 182 H (70-99) mg/dl Calcium (8.5-10.1) mg/dl Magnesium (1.7-2.4) mg/dl Lactate Dehydrogenase (86-244) U/L B-Natriuretic Peptide (0-100) pg/ml Beta-(1,3)-D-Glucan B-(1,3)-D-Glucan Intrp Diagnostic Findings CXR today image personally reviewed by me and agree with the following report: Chest X-Ray 10/04/22 08:29 XR chest 2V PA/lateral CLINICAL HISTORY: f/u PNA TECHNIQUE: 2 views of the chest were obtained. Comparison: Comparison is made to chest radiograph 10/01/2022 FINDINGS: Pacemaker is seen. Cardiomegaly is noted. The aortic arch is calcified. Multifocal airspace opacities are seen. Small bilateral pleural effusions are seen. IMPRESSION: Multifocal airspace opacities may represent atelectasis, pneumonia, and/or aspiration. ACT 112: Negative or not required by law. Electronically signed by: Bubba Charlton M.D. 10/04/2022 9:49 AM PG Care Time/CCT Total # of Minutes Spent Total Time Spent with Patient: Total time spent is greater than 50% in coordination of care (as documented) at patient's floor/unit and/or counseling patient: Coding Level of Care Code 54211 SUB INP/OBS CARE 3/50MIN Diagnoses Pneumonia J18.9 Chronic diastolic congestive heart failure I50.32 COPD (chronic obstructive pulmonary disease) J44.[address] segment changes on electrocardiogram R94.31 Severe pulmonary hypertension I27.20 Permanent atrial fibrillation I48.21 Parkinson's disease G20 PAD (peripheral artery disease) I73.9 Hypertension I10 Hypothyroidism E03.9 Anemia D64.9 Apnea, sleep G47.33 Sleep apnea type: obstructive Chronic kidney disease, stage IV (severe) N18.4 NSVT (nonsustained ventricular tachycardia) I47.29 (1) Apnea, sleep Sleep apnea type: obstructive Qualified Code(s): G47.33 - Obstructive sleep apnea (adult) (pediatric)
[2022-10-04] MEDS: CALCIUM 600MG + VIT D 400 IU TAB PO SCH (13:07)
[2022-10-04 15:33] LABS: Appearance Urine Clear (Clear); Bacteria Urine Automated Negative (Negative); Bilirubin Urine Negative (Negative); Blood Urine Negative (Negative); Color Urine Yellow; Epithelial Cell Urine Auto 0-5 /lpf (0-5); Glucose Urine UA Negative (Negative); Ketones Urine Negative (Negative); Leukocyte Esterase Urine Negative (Negative); Nitrite Urine Negative (Negative); Protein Urine Trace (Negative); RBC Urine Automated 0-4 /hpf (0-4); Specific Gravity Urine 1.014 (1.000-1.030); Urobilinogen Urine Negative (Negative)
[2022-10-04] MEDS: EZETIMIBE/SIMVASTATIN 10/20 TAB PO SCH (21:15)
[2022-10-04] MEDS: LANTUS PER UNIT CHARGE SQ SCH (21:24)
[2022-10-05] MEDS: CEFEPIME 1,000 MG in SYRINGE 0 ML IV SCH (01:35)
[2022-10-05] MEDS: LEVOTHYROXINE SODIUM 100 MCG TABLET PO SCH (05:47)
[2022-10-05 05:50] LABS: Basophils # (auto) 0.01 K/uL (0-0.2); Basophils % (auto) 0.1 %; Eosinophils # (auto) 0.01 K/uL (0-0.50); Eosinophils % (auto) 0.1 %; Hematocrit (blood only) 29.8 % (40.1-51.0); Hemoglobin 10.2 g/dl (14.0-18.0); Immature Granulocytes # (auto) 0.31 K/uL (0.00-0.02); Immature Granulocytes % (auto) 3.1 %; Lymphocytes # (auto) 0.58 K/uL (1.2-3.4); Lymphocytes % (auto) 5.9 %; Mean Corpuscular Hemoglobin 30.4 pg (25.0-34.0); Mean Corpuscular Hgb Conc 34.2 g/dL (32.0-36.0); Mean Corpuscular Volume 88.7 fL (80.0-100.0); Mean Platelet Volume 11.8 fL (9.4-12.4); Monocytes # (auto) 0.93 K/uL (0.24-0.82); Monocytes % (auto) 9.4 %; Neutrophils # (auto) 8.02 K/uL (1.4-6.5); Neutrophils % (auto) 81.4 %; Platelet Count 225 K/uL (130-400); RDW Coefficient of Variation 14.6 % (11.5-14.5); RDW Standard Deviation 46.3 fL (36.4-46.3); Red Blood Count 3.36 M/uL (4.63-6.08); White Blood Count 9.86 K/ul (4.8-10.8)
[2022-10-05 06:26] LABS: BUN Creatinine Ratio 48.6 (10-20); Calcium 9.4 mg/dl (8.5-10.1); Creatinine Clr Calc Pharmacy 22.9 ml/min; Est GFR (African American) 30.6 ml/min; Est GFR (Non-African American) 26.4 ml/min; Magnesium 2.7 mg/dl (1.7-2.4); Potassium 3.7 mmol/L (3.5-5.1)
[2022-10-05] MEDS: ALBUT/IPRATROP 3MG/0.5MG NEB 3 ML VIAL NEB SCH ×3 (06:57→19:35)
[2022-10-05] MEDS ORDERED: predniSONE 20 MG TAB PO SCH (09:00)
--- NOTE | 2022-10-05 09:04 | Pulmonology Progress Note ---
Date of Service October 05, 2022 Assessment & Plan (1) Pneumonia: (2) COPD (chronic obstructive pulmonary disease): (3) Severe pulmonary hypertension: (4) Acute respiratory failure with hypoxia: (5) Acute on chronic heart failure with preserved ejection fraction (HFpEF): (6) Abnormal CT scan of lung: Plan Impression: 86-year-old male with mild airflow obstruction and borderline sleep disordered breathing admitted with pulmonary infiltrates and hypoxemia. His procalcitonin is been normal and he is completed courses of antibiotics without significant improvement. He has been placed on empiric steroids with no significant improvement. He does have an elevated BNP and given the presence of these multifocal infiltrates with pleural effusions, would favor fluid overload at this point time. Atypical infection appears to be less likely Recommendations: 1. Abnormal CT scan: Suspect atypical pulmonary edema given the effusions and his elevated BNP. Would recommend aggressive diuresis although with the patient's underlying chronic kidney disease this may be somewhat complicated. His intake and output have essentially been even since hospitalization. Recommend increasing Lasix and consideration of addition of metolazone or Aldactone and targeting -1000 cc per 24 hours. 2. Borderline sleep disordered breathing: Continue CPAP at night as long as the patient feels it is beneficial. 3. Mild obstructive lung disease: The patient does not appear bronchospastic currently. Do not think this is significantly contributing to the abnormal imaging studies or the patient's clinical symptoms. Continue inhalers at this point time. Patient is already been placed on high-dose steroids which would treat most inflammatory issues. I think his steroids can likely be rapidly tapered at this point time. 4. Hypoxemia: Continue oxygen titrated to keep saturations at around 90%. 5. Speech therapy indicated that if chest x-ray is worsening, video swallow might be warranted. I do think his chest x-ray is progressed and would recommend reengage in speech therapy for a formal video swallow evaluation Would hold off on bronchoscopy unless the patient is aggressively diuresed and fails to improve clinically. Admission and Anticipated Discharge Date Admission Date: September 24, 2022 Subjective Patient seen and examined. EMR reviewed. Patient reports that he feels like his breathing is a little worse today. He is not coughing or expectorating phlegm. He is developing significant lower extremity edema. He does not have orthopnea. He remains compliant with BiPAP overnight. He denies fevers chills or night sweats Review of Systems Review of Systems: All systems reviewed & are unremarkable except as noted in Subjective Physical Exam Constitutional: WD/WN, vitals as above Neck: trachea midline, no thyromegaly Respiratory: no respiratory distress, no labored breathing, no cough and not tachypneic Auscultation: + crackles; no wheezes Cardiovascular: RRR, no murmur, no edema Gastrointestinal (Abdomen): normal bowel sounds, soft, nontender, no hepatosplenomegaly Musculoskeletal: Extremities: extremities normal to inspection Skin: no rashes, warm and dry Lymphatic: no cervical lymphadenopathy Results & Data Results & Data ([facility]) Vital Signs (Past 12 Hours) Vital Signs Temp Pulse Pulse Resp BP BP Pulse Ox 10/05/22 06:57 72 18 90 10/05/22 06:11 36.4 C L 69 18 155/66 H 95 10/04/22 22:20 60 25 H 94 10/05/22 03:14 62 30 H 92 10/04/22 22:19 36.8 C 65 16 146/72 H 95 10/04/22 21:32 O2 Del Method O2 Flow Rate 10/05/22 06:57 Nasal Cannula 4 10/05/22 06:11 CPAP 10/04/22 22:20 5 10/05/22 03:14 5 10/04/22 22:19 Nasal Cannula 2 10/04/22 21:32 Nasal Cannula 5 Intake and output essentially even since admission Laboratory Results 10/05/22 05:39 10/05/22 05:39 BNP remains elevated at over 800 LDH normal 242 Diagnostic Findings No new imaging PG Care Time/CCT Total # of Minutes Spent Total Time Spent with Patient: Total time spent is greater than 50% in coordination of care (as documented) at patient's floor/unit and/or counseling patient: Coding Level of Care Code 62109 SUB INP/OBS CARE 2/35MIN Diagnoses Pneumonia J18.9 COPD (chronic obstructive pulmonary disease) J44.9 Severe pulmonary hypertension I27.20 Acute respiratory failure with hypoxia J96.01 Acute on chronic heart failure with preserved ejection fraction (HFpEF) I50.[address] scan of lung R91.8
[2022-10-05] MEDS: INSULIN ASPART PER UNIT SC SCH ×4 (09:11→20:38)
[2022-10-05] MEDS: cloNIDine HCL 0.1 MG TAB PO SCH ×3 (09:12→20:39)
[2022-10-05] MEDS: DABIGATRAN ETEXILATE 75 MG CAP PO SCH ×2 (09:12→20:39)
[2022-10-05] MEDS: CARBIDOPA/LEVODOPA 25/100MG TAB PO SCH ×3 (09:12→20:39)
[2022-10-05] MEDS: guaiFENesin 600 MG TABCR PO SCH ×2 (09:13→20:38)
[2022-10-05] MEDS: CEROVITE ADV FORMULA TAB PO SCH (09:13)
[2022-10-05] MEDS: amLODIPine BESYLATE 5 MG TAB PO SCH (09:13)
[2022-10-05] MEDS: allopurinoL 100 MG TAB PO SCH (09:13)
[2022-10-05] MEDS: CLOPIDOGREL BISULFATE 75 MG TAB PO SCH (09:13)
[2022-10-05] MEDS: FUROSEMIDE 40 MG TAB PO SCH (10:14)
--- NOTE | 2022-10-05 12:26 | Hospitalist Progress Note ---
Date of Service October 05, 2022 Assessment & Plan (1) Pneumonia: Plan: RUL initially, then repeat cxr with RLL infiltrate as well. This was despite 5 days each of rocephin/doxy. Was changed to Cefepime and doxy on 09/28 and now has completed a 7 day course--> still no improvement in pulm status CRP remained high & unchanged initially, but then trended downward. O2 requirement-did require as much as 6 L NC O2 early in stay, then weaned to 3LNC but now up to 4LNC and tachypneic at rest Aspiration unlikely - speech therapy evaluated - no dysphagia noted but with w orsening of CXR findings, will ask to perform VFSS on Thursday MRSA nasal swab - negative but doxycycline will cover for MRSA regardless Respiratory BioFire - negative. still with low energy and low appetite. Is afebrile CXR 10/01 with increasing infiltrates now also on the left lower lobe,not improvi ng Urine legionella ag is negative Sputum cx prelim mod normal carola His weight is up quite a bit-suspect there is some volume overload as well. Has developed some peripheral edema with being off of his usual Lasix--gave IV lasix 20mg on 10/03 with good response -gave another dose of IV lasix 10/04 BNP elevated in 800s CXR 10/04 with multifocal PNA, trace bilat pleural effusions Appreciate PULM consult -checked LDH to assess for PJP--> normal -checked BNP-still elevated and likely seems all his dyspnea is from volume overload at this point--> will consult Nephrology to assist with diuretic man catia in this pt with CKD Stage 4 -Fungitell pending -may need bronch if not improving after more aggressive diuresis -now done with IV abx -taper prednisone to 10mg for tomorrow then STOP -Continue scheduled DuoNebs 3 times daily -continue flutter valve -Follow chest x-ray to resolution -continue supplemental O2 and wean off as able to -order VFSS for Thursday with Speech (2) Chronic diastolic congestive heart failure: Plan: acute/chronic HFpEF -initially given IV lasix and had rising cylinder handler Echo 11/12: EF 50-55%, left ventricular systolic function low normal, no regional WMA, RV mildly dilated, RV systolic function normal, severe pulmonary hypertension and moderately dilated IVC, moderate tricuspid regurg. Echo this admission largely unchanged Creatinine climbed up to 2.47, BUN also elevated but also on steroids Technician Support Engineer improved after 500mL NS given on 09/30, cylinder handler now down to baseline 2.1 With evidence of volume overload as above with increasing weight, developing peripheral edema, and continued dyspnea as above Gave Lasix 20 Mg IV x1 on 10/03 with good response cylinder handler slightly up but ok to give another dose of IV lasix 10/04 Follow BMP in am -restarted home po lasix 40mg for now but will await to see Nephro recommend ations (3) COPD (chronic obstructive pulmonary disease): Plan: with exacerbation treated without improvement PFTs 2021 with mild obstruction, poor bronchodilator response due to ongoing cough/wheezing/dyspnea -giving prednisone burst and taper cont nebs prn cont pulmonary toilet Consult pulmonology appreciated taper down prednisone (4) Anorexia: Plan: Likely 2nd to pneumonia, CKD Continues to have very low appetite below his usual-severe added boost BID, MVI prednisone not helping LFTs normal and RUQ US to r/o GB issues-normal Is moving bowels (5) ST segment changes on electrocardiogram: Plan: admission EKG - inferior ST changes but NO ischemic symptoms and troponins negative - although he mentioned vague episode of chest pain pre-hospital sometime in the last couple of weeks with that said he walks 2-3 miles EVERY DAY without limiting dyspnea, chest pain, etc. he has presumed CAD (numerous CAD risk factors, etc) but no cath to definitively diagnose such - high-sensitivity troponin was negative x2 this admission -cont plavix -cont simvastatin/zetia -unfortunately, even if we wanted to perform stress test at this time, this is not ideal timing due to above issues (acute/chronic CHF, pneumonia, etc) -EKG -- pacing; ST changes laterally are chronic (6) Severe pulmonary hypertension: Plan: cont night-time CPAP at discharge will assess for ambulatory O2 needs given the severity of his pulm HTN (7) Permanent atrial fibrillation: Plan: S/p single-chamber pacer placement 2010. Continue Pradaxa 75mg BID. Is not on BB or CCB therapy at baseline. (8) Parkinson's disease: Plan: Continue Sinemet. Appreciate speech therapy eval -- > no dysphagia seen. Plan for VFSS Thursday (9) PAD (peripheral artery disease): Plan: Continue simvastatin and ezetimibe along with Plavix. (10) Hypertension: Plan: Continue amlodipine, clonidine. Most readings acceptable. (11) Hypothyroidism: Plan: Continue levothyroxine. TSH earlier in 2021 wnl. (12) Anemia: Plan: Mild Secondary to CKD stable H/H with hemoglobin 10.5 (13) Apnea, sleep: Plan: CPAP at night (14) Chronic kidney disease, stage IV (severe): Plan: baseline CrCl 20s baseline Cr 1.8 Acute kidney injury as above Consult Nephrology appreciated (15) NSVT (nonsustained ventricular tachycardia): Plan: brief episode (<10 beats) many days ago -- no symptoms from such recent echo with preserved EF and no LV wall motion abnormalities have since transitioned off telemetry Plan DVT proph - pradaxa PT, OT evals appreciated-with prolonged hospitalization now, will have to reas sess once PULM status improves. He may need rehab but at this point declines to go to rehab Disposition-continued stay for ongoing dyspnea, treatment of PNA, heart failure Admission and Anticipated Discharge Date Admission Date: September 24, 2022 Subjective Pt more SOB today, tachypneic at rest. Poor appetite. Not bring up much sputum. Review of Systems Review of Systems: All systems reviewed & are unremarkable except as noted in HPI & below Physical Exam Physical Exam: gen - NAD, alert, awake, oriented to person and place, and time heart - RRR, s1 s2, 2/6 systolic murmur lungs +tachypnea at rest, positive crackles at the left lower and middle lung milan as well as right upper lung field, no wheezing abd - soft NT ND BS+ ext -trace edema left leg greater than right, much improved; left forearm +pi tting edema at previous IV site Skin no rashes, some bruising on arms at lab draw sites Results & Data Results & Data ([facility]) Vital Signs (Past 12 Hours) Vital Signs Temp Pulse Pulse Resp BP Pulse Ox O2 Del Method 10/05/22 08:00 Nasal Cannula, CPAP 10/05/22 06:57 72 18 90 Nasal Cannula 10/05/22 06:11 36.4 C L 69 18 155/66 H 95 CPAP 10/05/22 03:14 62 30 H 92 O2 Flow Rate 10/05/22 08:00 4 10/05/22 06:57 4 10/05/22 06:11 10/05/22 03:14 5 Laboratory Results 10/05/22 05:39 10/05/22 05:39 PG Care Time/CCT Total # of Minutes Spent Total Time Spent with Patient: Total time spent is greater than 50% in coordination of care (as documented) at patient's floor/unit and/or counseling patient: Coding Level of Care Code 39127 SUB INP/OBS CARE 2/35MIN Diagnoses Pneumonia J18.9 Chronic diastolic congestive heart failure I50.32 COPD (chronic obstructive pulmonary disease) J44.[address] segment changes on electrocardiogram R94.31 Severe pulmonary hypertension I27.20 Permanent atrial fibrillation I48.21 Parkinson's disease G20 PAD (peripheral artery disease) I73.9 Hypertension I10 Hypothyroidism E03.9 Anemia D64.9 Apnea, sleep G47.33 Sleep apnea type: obstructive Chronic kidney disease, stage IV (severe) N18.4 NSVT (nonsustained ventricular tachycardia) I47.29 (1) Apnea, sleep Sleep apnea type: obstructive Qualified Code(s): G47.33 - Obstructive sleep apnea (adult) (pediatric)
[2022-10-05] MEDS: CALCIUM 600MG + VIT D 400 IU TAB PO SCH (12:50)
--- NOTE | 2022-10-05 15:07 | Nephrology Consultation ---
Date of Consultation October 05, 2022 Assessment & Plan (1) Chronic kidney disease, stage IV (severe): Creatinine at baseline 1.8-2.1 mg/dL. Electrolytes acceptable. Non-oluguric with good response to diuretics. No emergent indication for dialysis. CKD attributed to history of hypertension and renovascular disease. There will be some permissive rise in creatinine with diuresis and associated changes in EAV. Additional RAAS blocked to be held. The patient has not been on an YANELY or ARB. Medications are appropriately dosed for kidney function. Ultimately, for consideration, there is likely more evidence for the use of apixaban in CKD than dabigatran. Document strict I/O's. Repeat metabolic profile tomorrow AM. Renal diet. Updated renal US requested. Unfortunately, given medical comorbidities and age, Jimi would not likely benefit significantly from dialysis if kidney dysfunction progresses. We discussed this today. (2) Severe pulmonary hypertension: Pulmonology consultation reviewed. TTE reviewed. Continue diuretics to encouraged negative fluid balance. Furosemide 40 mg provided this AM. Slightly negative -300 ml this afternoon. (3) Acute on chronic heart failure with preserved ejection fraction (HFpEF): Low sodium diet. Daily weights. Diuretics to encourage negative fluid balance. (4) Anemia: Chronic, stable. Hgb >10. Has not required CAYDEN therapy. History of Present Illness Reason for Consultation: CKD, volume overload Requesting Physician: Jojo Landaverde MD Attending Physician: Jojo Landaverde MD History of Present Illness Mr. Jimi Ramsay is an 86-year-old male with chronic kidney disease IIIb-IV A3. Baseline creatinine 1.8-2.0 mg/dL. Jimi follows in the CKD clinic with Dr. Seymour. CKD is attributed to a history of hypertension and renovascular disease. Medical history notable for significant calcific vascular disease and presumed CAD. Jimi follows in the cardiology clinic with Dr. Vega. 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 He has a notable smoking history and some associated COPD. Dr. Elaine has followed Jimi in the pulmonology clinic. He follows in the urology clinic regarding a history of subdural hematoma evaluated in 2006 as well as idiopathic right javi- Parkinson's disease. He has a history of DVT and [place] filter placement. He is treated for hypothyroidism and hypercholesterolemia. Calcitriol for sPTH held previously due to hypercalcemia which improved following medication adjustment. History of L CEA. The left kidney is known to be atrophic. 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 [place] [facility] [place] of the left renal artery and right accessory renal artery in 2009 for a history of resistant hypertension. Jimi presented to [facility] on September 24 with shortness of breath. He has been treated for COPD exacerbation and pneumonia with minimal reported symptomatic improvement. Findings of volume overload persist. However, creatinine noted to be rising with diuresis. Creatinine relatively stable at 2.1 mg/dL at this time. Jimi is non-oliguric. Electrolytes are acceptable. Jimi and I discussed potential indications for dialysis today. We also discussed medical comorbidities that may complicated treatment. He expressed understanding that if kidney dysfunction progresses dialysis would be difficult and may not offer improvement in quality or quantity of life. He has limited insight into what dialysis entails but expressed reservations regarding the idea of dialysis in the future. Allergies Allergy/AdvReac Type Severity Reaction Status Date / Time hydralazine AdvReac Severe anorexia,h/ Verified 08/27/22 14:25 a,nausea,pa lpitations Home Medications Medication Instructions Recorded Confirmed Type CPAP Machine #10 ea 07/13/19 09/24/22 Rx CPAP Machine #1 ea 04/24/20 09/24/22 Rx nitroglycerin 0.4 mg sublingual 0.4 mg buccal UD PRN Chest Pain 01/08/21 09/24/22 Rx tablet (Nitrostat) #25 tabs levothyroxine 100 mcg tablet 100 mcg PO QAM #90 tabs 02/11/22 09/24/22 Rx clopidogrel 75 mg tablet 75 mg PO QAM #90 tabs 05/01/22 09/24/22 Rx potassium chloride 20 mEq 20 meq PO DAILY #90 tabs 05/06/22 09/24/22 Rx tablet,extended release allopurinol 100 mg tablet 200 mg PO QAM #180 tabs 06/30/22 09/24/22 Rx amlodipine 10 mg tablet 10 mg PO QAM #90 tabs 06/30/22 09/24/22 Rx clonidine HCl 0.2 mg tablet 0.2 mg PO TID #540 tabs 06/30/22 09/24/22 Rx furosemide 40 mg tablet 120 mg PO QAM #270 tabs 06/30/22 09/24/22 Rx dabigatran etexilate 75 mg capsule 75 mg PO BID #180 caps 07/28/22 09/24/22 Rx ezetimibe 10 mg-simvastatin 20 mg 1 tab PO HS #90 tabs 07/28/22 09/24/22 Rx tablet carbidopa 25 mg-levodopa 100 mg 1 tab PO TID 90 days #270 tabs 08/27/22 09/24/22 Rx tablet Patient History Medical History (Updated 10/04/22 @ 11:04 by Jaime Elaine MD) Anticoagulant long-term use Carotid artery stenosis Chronic constipation Chronic kidney disease, stage 3 (moderate) Dyslipidemia Former smoker GERD (gastroesophageal reflux disease) Gout History of DVT (deep vein thrombosis) HTN (hypertension) Hypothyroid Pacemaker (01/2021) Parkinson's disease Permanent atrial fibrillation Pleural effusion Subdural hematoma (2006) Surgical History H/O vasectomy History of appendectomy History of renal stent (2006) Right History of renal stent (2008) Left Hx of tonsillectomy S/P carotid endarterectomy (1994) S/P insertion of inferior vena caval filter Family History Father Diabetes Denies family history of Ovarian cancer Prostate cancer Myocardial infarction Breast cancer Lung cancer Colorectal cancer Stroke Social History Smoking Status: Former smoker Age Started Using Tobacco: 12; Age Quit Using Tobacco: 53; packs per day: 1; Cigarettes Per Day: 20; Second Hand Exposure: No; Hx Alcohol Use: Yes Alcohol type: beer Hx Substance Use: No Preferred Language: Albanian Communication Ability: Effective Visual Impairment: No Limitations Hearing Ability: Normal Fitness Attendant Required: No Beliefs That Will Affect Care: None marital status: Current Living Situation: Spouse Current Living Situation Comment: from home current occupational status: retired Feels Safe at Home: Yes Childhood Exposure to Second-Hand Smoke: Yes during the past year weight has: remained stable Physical Activity Frequency: Daily Physical Activity Frequency Comment: walks a mile every day in nice weather Seatbelt Use: always Assistive Devices: None Review of Systems Review of Systems: All systems reviewed & are unremarkable except as noted in HPI & below Constitutional: + fatigue and + weakness Physical Exam Constitutional: + frail appearing; no acute distress Eyes: + anicteric sclerae; no corneal abnormality ENMT: Mouth: + dry oral mucous membranes; no oral mucosal abnormality Neck: normal visual inspection and trachea midline Respiratory: + tachypneic; no labored breathing Auscultation: + rales Cardiovascular: Rate/Rhythm: + irregularly irregular Heart Sounds: normal S1, normal S2 and + murmur Extremities: + pedal edema; no edema Musculoskeletal: Extremities: no cyanosis and no clubbing Skin: + turgor decreased; no jaundice Neurologic: Motor/Sensory: no tremor and no asterixis Psychiatric: Orientation: alert and oriented x 3 Results & Data ([facility]) Vital Signs (Past 12 Hours) Vital Signs Temp Pulse Pulse Resp BP Pulse Ox O2 Del Method 10/05/22 13:30 76 22 91 Nasal Cannula 10/05/22 08:00 Nasal Cannula, CPAP 10/05/22 06:57 72 18 90 Nasal Cannula 10/05/22 06:11 36.4 C L 69 18 155/66 H 95 CPAP 10/05/22 03:14 62 30 H 92 O2 Flow Rate 10/05/22 13:30 3 10/05/22 08:00 4 10/05/22 06:57 4 10/05/22 06:11 10/05/22 03:14 5 Laboratory Results Laboratory Results - last 24 hr 10/04/22 10/04/22 10/04/22 15:00 16:40 19:56 WBC RBC Hgb Hct MCV MCH MCHC RDW Std Deviation RDW Coeff of Italo Plt Count MPV Immature Gran % (Auto) Neut % (Auto) Lymph % (Auto) [place] % (Auto) Eos % (Auto) Baso % (Auto) Neut # (Auto) Lymph # (Auto) [place] # (Auto) Eos # (Auto) Baso # (Auto) Immature Gran # (Auto) Sodium Potassium Chloride Carbon Dioxide Anion Gap BUN Creatinine Est Cr Clr Drug Dosing Est GFR ( Amer) Est GFR (Non-Af Amer) BUN/Creatinine Ratio Glucose POC Glucose 198 H 226 H Calcium Magnesium Urine Color Yellow Urine Appearance Clear Urine pH 5.0 Ur Specific [place] 1.014 Urine Protein Trace H Urine Glucose (UA) Negative Urine Ketones Negative Urine Blood Negative Urine Nitrite Negative Urine Bilirubin Negative Urine Urobilinogen Negative Ur Leukocyte Esterase Negative Urine WBC (Auto) 1-5 Urine RBC (Auto) 0-4 U Hyaline Cast (Auto) 1-5 U Epithel Cells (Auto) 0-5 Urine Bacteria (Auto) Negative 10/05/22 10/05/22 10/05/22 05:39 05:39 07:24 WBC 9.86 RBC 3.36 L Hgb 10.2 L Hct 29.8 L MCV 88.7 MCH 30.4 MCHC 34.2 RDW Std Deviation 46.3 RDW Coeff of It[place] 14.6 H Plt Count 225 MPV 11.8 Immature Gran % (Auto) 3.1 Neut % (Auto) 81.4 Lymph % (Auto) 5.9 [place] % (Auto) 9.4 Eos % (Auto) 0.1 Baso % (Auto) 0.1 Neut # (Auto) 8.02 H Lymph # (Auto) 0.58 L [place] # (Auto) 0.93 H Eos # (Auto) 0.01 Baso # (Auto) 0.01 Immature Gran # (Auto) 0.31 H Sodium 139 Potassium 3.7 Chloride 105 Carbon Dioxide 26 Anion Gap 8 BUN 105 H Creatinine 2.16 H Est Cr Clr Drug Dosing 22.9 Est GFR ( Amer) 30.6 Est GFR (Non-Af Amer) 26.4 BUN/Creatinine Ratio 48.6 H Glucose 146 H POC Glucose 141 H Calcium 9.4 Magnesium 2.7 H Urine Color Urine Appearance Urine pH Ur Specific [place] Urine Protein Urine Glucose (UA) Urine Ketones Urine Blood Urine Nitrite Urine Bilirubin Urine Urobilinogen Ur Leukocyte Esterase Urine WBC (Auto) Urine RBC (Auto) U Hyaline Cast (Auto) U Epithel Cells (Auto) Urine Bacteria (Auto) 10/05/22 11:28 WBC RBC Hgb Hct MCV MCH MCHC RDW Std Deviation RDW Coeff of [place] Plt Count MPV Immature Gran % (Auto) Neut % (Auto) Lymph % (Auto) [place] % (Auto) Eos % (Auto) Baso % (Auto) Neut # (Auto) Lymph # (Auto) [place] # (Auto) Eos # (Auto) Baso # (Auto) Immature Gran # (Auto) Sodium Potassium Chloride Carbon Dioxide Anion Gap BUN Creatinine Est Cr Clr Drug Dosing Est GFR ( Amer) Est GFR (Non-Af Amer) BUN/Creatinine Ratio Glucose POC Glucose 95 Calcium Magnesium Urine Color Urine Appearance Urine pH Ur Specific [place] Urine Protein Urine Glucose (UA) Urine Ketones Urine Blood Urine Nitrite Urine Bilirubin Urine Urobilinogen Ur Leukocyte Esterase Urine WBC (Auto) Urine RBC (Auto) U Hyaline Cast (Auto) U Epithel Cells (Auto) Urine Bacteria (Auto) Diagnostic Findings XR chest 2V PA/lateral: Pacemaker is seen. Cardiomegaly is noted. The aortic arch is calcified. Multifocal airspace opacities are seen. Small bilateral pleural effusions are seen. IMPRESSION: Multifocal airspace opacities may represent atelectasis, pneumonia, and/or aspiration. PG Care Time/CCT Total # of Minutes Spent Total Time Spent with Patient: Total time spent is greater than 50% in coordination of care (as documented) at patient's floor/unit and/or counseling patient: Coding Level of Care Code INP/OBS CONSULT LVL 4, 60 MIN Diagnoses Chronic kidney disease, stage IV (severe) N18.4 Severe pulmonary hypertension I27.20 Acute on chronic heart failure with preserved ejection fraction (HFpEF) I50.33 Anemia D64.9
--- NOTE | 2022-10-05 16:46 | Ultrasound Report ---
ULTRASOUND KIDNEYS AND BLADDER CLINICAL HISTORY: Acute renal insufficiency. COMPARISON STUDY: Abdominal radiograph dated 02/06/2007. Abdominal CT dated 02/05/2007. TECHNIQUE: Real-time, grayscale, and color flow sonography of the kidneys and bladder is performed. I mages are reviewed in the transverse and longitudinal planes. FINDINGS: Kidneys: The right kidney is normal in size and echotexture. The left kidney is atrophic and echogeni c. The right kidney measures 10.9 x 6.3 x 5.6 cm and the left kidney measures 8.8 x 4.2 x 3.3 cm. Th ere is no hydronephrosis. No shadowing renal calculi are identified. There is no sonographic evidence of contour deforming renal mass lesion. No perinephric fluid is identified. Bladder: The prostate gland is enlarged. The bladder is distended and the wall is thickened/[place]ab[place] anshul indicating chronic outlet obstruction. Ureteral jets were not seen. IMPRESSION: 1. The right kidney is normal in size and without hydronephrosis. 2. The left kidney is atrophic and echogenic indicative of medical renal disease. 3. Prostatomegaly with evidence of chronic bladder outlet obstruction. ACT 112: Negative or not required by law. Electronically signed by: Cedrick Clements M.D. 10/05/2022 4:44 PM
[2022-10-05] MEDS: POLYETHYLENE (MIRALAX) 17 GM PACK PO PRN (18:17)
[2022-10-05] MEDS: LANTUS PER UNIT CHARGE SQ SCH (20:38)
[2022-10-05] MEDS: EZETIMIBE/SIMVASTATIN 10/20 TAB PO SCH (20:39)
[2022-10-06] MEDS: LEVOTHYROXINE SODIUM 100 MCG TABLET PO SCH (06:01)
[2022-10-06] MEDS: ALBUT/IPRATROP 3MG/0.5MG NEB 3 ML VIAL NEB SCH ×3 (06:56→19:32)
[2022-10-06 07:06] LABS: BUN Creatinine Ratio 49.8 (10-20); Calcium 9.4 mg/dl (8.5-10.1); Creatinine Clr Calc Pharmacy 23.9 ml/min; Est GFR (African American) 32.2 ml/min; Est GFR (Non-African American) 27.8 ml/min
[2022-10-06] MEDS ORDERED: bisacodyL 10 MG SUPP PR PRN (08:54)
[2022-10-06] MEDS ORDERED: predniSONE 10 MG TABLET PO SCH (09:00)
[2022-10-06] MEDS: INSULIN ASPART PER UNIT SC SCH ×4 (09:14→21:13)
[2022-10-06] MEDS: POLYETHYLENE (MIRALAX) 17 GM PACK PO PRN (09:22)
[2022-10-06] MEDS: CARBIDOPA/LEVODOPA 25/100MG TAB PO SCH ×3 (09:22→21:13)
[2022-10-06] MEDS: CEROVITE ADV FORMULA TAB PO SCH (09:23)
[2022-10-06] MEDS: guaiFENesin 600 MG TABCR PO SCH ×2 (09:23→21:13)
[2022-10-06] MEDS: FUROSEMIDE 40 MG TAB PO SCH (09:23)
[2022-10-06] MEDS: amLODIPine BESYLATE 5 MG TAB PO SCH (09:23)
[2022-10-06] MEDS: CLOPIDOGREL BISULFATE 75 MG TAB PO SCH (09:23)
[2022-10-06] MEDS: cloNIDine HCL 0.1 MG TAB PO SCH ×3 (09:23→21:14)
[2022-10-06] MEDS: DABIGATRAN ETEXILATE 75 MG CAP PO SCH ×2 (09:23→21:14)
[2022-10-06] MEDS: allopurinoL 100 MG TAB PO SCH (09:24)
[2022-10-06] MEDS: CALCIUM 600MG + VIT D 400 IU TAB PO SCH (10:38)
[2022-10-06] MEDS: SENNA 8.6 MG TAB PO SCH (10:38)
--- NOTE | 2022-10-06 12:09 | Pulmonology Progress Note ---
Date of Service October 06, 2022 Assessment & Plan (1) Abnormal CT scan of lung: (2) Hypoxia: (3) Fluid overload: Plan Recommend continued diuresis and will give a dose of IV Lasix now. His BNP has been elevated and he does have cardiomegaly. He is a very poor candidate for bronchoscopy given his history of difficult to control hypertension, cardiac disease (atrial fibrillation) and use of anticoagulants and Parkinson's disease. His procalcitonin has been unremarkable. Doubtful of bacterial pneumonia. 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 Recommend aspiration precautions. Secondary pulm hypertension due to atrial fibrillation and left-sided heart disease. Discussed with bedside RN and hospitalist, Dr. Landaverde. Admission and Anticipated Discharge Date Admission Date: September 24, 2022 Subjective Shortness of breath worsening today. He has barely been out of bed. He did have a video swallow study today which apparently did not reveal any overt aspiration. Speech did change his diet. Nursing notes that his oxygen requirements have increased from 3 L to 5 L over the last day. He has not received any IV Lasix today. Review of Systems Review of Systems: All systems reviewed & are unremarkable except as noted in HPI & below Physical Exam Constitutional: WD/WN, vitals as above Neck: trachea midline, no thyromegaly Respiratory: + labored breathing; no respiratory distress, no cough and not tachypneic Auscultation: + crackles; no wheezes Cardiovascular: RRR, no murmur, no edema Gastrointestinal (Abdomen): normal bowel sounds, soft, nontender, no hepatosplenomegaly Musculoskeletal: Extremities: extremities normal to inspection Skin: no rashes, warm and dry Lymphatic: no cervical lymphadenopathy Results & Data Results & Data ([facility]) Vital Signs (Past 12 Hours) Vital Signs Temp Pulse Pulse Resp BP Pulse Ox O2 Del Method 10/06/22 12:02 70 24 91 Nasal Cannula 10/06/22 11:18 90 Nasal Cannula 10/06/22 07:51 36.5 C 64 16 145/54 H 95 Nasal Cannula 10/06/22 07:36 Nasal Cannula, CPAP 10/06/22 06:57 63 18 92 Nasal Cannula 10/06/22 02:34 63 24 94 O2 Flow Rate 10/06/22 12:02 4 10/06/22 11:18 4 10/06/22 07:51 5 10/06/22 07:36 5 10/06/22 06:57 5 10/06/22 02:34 5 PG Care Time/CCT Total # of Minutes Spent Total Time Spent with Patient: Total time spent is greater than 50% in coordination of care (as documented) at patient's floor/unit and/or counseling patient: Coding Level of Care Code 14432 SUB INP/OBS CARE 2/35MIN Diagnoses Abnormal CT scan of lung R91.8 Hypoxia R09.02 Fluid overload E87.70
[2022-10-06] MEDS ORDERED: FUROSEMIDE 40 MG/4 ML VIAL IV ONE ×2 (12:36→18:21)
--- NOTE | 2022-10-06 14:12 | Nephrology Progress Note ---
Date of Service October 06, 2022 Assessment & Plan (1) Chronic kidney disease, stage IV (severe): (2) Fluid overload: (3) Hypertension: (4) Anemia: Plan 86-year-old male with PMH of stage IV CKD, b/l cr 2.0 to 2.2, COPD with severe pulmonary hypertension, moderate TR, A fi theb, s/p pacemaker admitted on 09/24/2022 with 3-4 days history of shortness of breath. complaints of 3 to 4 days of shortness of breath. he was admitted with possible COPD exacerbation as well as some component of worsening CHF with history of diastolic dysfunction. Has been on empiric antibiotic and steroid as well as Lasix. Receive Lasix 40 mg yesterday but none this morning and over last 24 hours he was net -500 mL. This morning more SOB with increased oxygen requirement. --suggest increasing Lasix to 40 mg bid, goal net negative 0.5 to 1 L/d --check iron study with am lab, renal panel in am Will follow Admission and Anticipated Discharge Date Admission Date: September 24, 2022 Subjective Mr. Kirkland was off floor this morning for swallow evaluation. labs and vital signs are reviewed. Discussed with nurse. Blood pressure staying relatively stable but his oxygen requirement increased with more shortness of breath. Decent urine output with net -500. creatinine was relatively stable with elevated BUN, elective acceptable. Results & Data ([facility]) Vital Signs (Past 12 Hours) Vital Signs Temp Pulse Pulse Resp BP Pulse Ox O2 Del Method 10/06/22 12:02 70 24 91 Nasal Cannula 10/06/22 11:18 90 Nasal Cannula 10/06/22 07:51 36.5 C 64 16 145/54 H 95 Nasal Cannula 10/06/22 07:36 Nasal Cannula, CPAP 10/06/22 06:57 63 18 92 Nasal Cannula 10/06/22 02:34 63 24 94 O2 Flow Rate 10/06/22 12:02 4 10/06/22 11:18 4 10/06/22 07:51 5 10/06/22 07:36 5 10/06/22 06:57 5 10/06/22 02:34 5 PG Care Time/CCT Total # of Minutes Spent Total Time Spent with Patient: Total time spent is greater than 50% in coordination of care (as documented) at patient's floor/unit and/or counseling patient: Coding Level of Care Code 30694 SUB INP/OBS CARE 350MIN Diagnoses Chronic kidney disease, stage IV (severe) N18.4 Fluid overload E87.70 Hypertension I10 Anemia D64.9
--- NOTE | 2022-10-06 14:25 | Fluoroscopy Report ---
FL video swallow HISTORY: suspect aspiration,worsening pneumonia TECHNIQUE: Video fluoroscopic evaluation of swallowing was performed in the AP and lateral projection s by the speech pathology staff. The patient is fed nectar-thick and thin liquid barium, a barium coa anshul wafer, and barium pudding. FLUOROSCOPY TIME: 2.5 minutes. A cine loop submitted. COMPARISON STUDY: None. FINDINGS: There is normal hyoid excursion and epiglottic deflection. A left-sided pacemaker is noted. No aspiration identified. A few episodes of penetration without aspiration. [id number] vallecu lar residue with the thicker barium consistencies. IMPRESSION: 1. No aspiration identified. 2. Please see the speech pathologist report for detailed findings and recommendations. ACT 112: Negative or not required by law. Electronically signed by: Phi Shaikh M.D. 10/06/2022 2:24 PM
[2022-10-06 20:36] LABS: Anion Gap 9 (3-11); BUN Creatinine Ratio 45.5 (10-20); Blood Urea Nitrogen 96 mg/dl (6-23); Calcium 9.4 mg/dl (8.5-10.1); Carbon Dioxide 25 mmol/L (21-32); Chloride 105 mmol/L (98-107); Creatinine Clr Calc Pharmacy 23.4 ml/min; Est GFR (African American) 31.4 ml/min; Est GFR (Non-African American) 27.1 ml/min; Glucose 128 mg/dl (70-99(Fasting)); Magnesium 2.6 mg/dl (1.7-2.4); Sodium 139 mmol/L (136-145)
[2022-10-06] MEDS: LANTUS PER UNIT CHARGE SQ SCH (21:12)
[2022-10-06] MEDS: EZETIMIBE/SIMVASTATIN 10/20 TAB PO SCH (21:13)
--- NOTE | 2022-10-06 23:09 | Hospitalist Progress Note ---
Date of Service October 06, 2022 Assessment & Plan (1) Pneumonia: Plan: Presented with dyspnea and multifocal infiltrates on chest imaging Treated initially with 5 days each of rocephin/doxy. Then changed to Cefepime and doxy and completed a 7 day course--> still no improvement in pulm status CRP remained high & then trended downward. Procal negative No fevers, not much sputum production Treated with prednisone x 1 week and still no improvement O2 requirement-did require as much as 6 L NC O2 early in stay, then weaned to 3LNC but now up to 4-5LNC and tachypneic at rest Aspiration unlikely - speech therapy evaluated - no dysphagia noted but with worsening of CXR findings, VFSS w/o significant aspiration Respiratory BioFire - negative. Urine legionella ag is negative Sputum cx mod normal carola His weight is up quite a bit-suspect there is some volume overload as well. Has developed some peripheral edema with being off of his usual Lasix--gave IV lasix 20mg on 10/03 with good response -gave another dose of IV lasix 10/04 BNP elevated in 800s CXR 10/04 with multifocal PNA, trace bilat pleural effusions -gave lasix 40mg IV in AM and 60mg IV in PM on 10/06 Appreciate PULM consult -checked LDH to assess for PJP--> normal -checked BNP-still elevated and likely seems all his dyspnea is from volume overload at this point--> will consult Nephrology to assist with diuretic managemetn in this pt with CKD Stage 4 -Fungitell pending -no role for bronch as per PULM -now done with IV abx -continue DuoNebs 3 times daily, flutter valve -Follow chest x-ray to resolution -continue supplemental O2 and wean off as able to (2) Chronic diastolic congestive heart failure: Plan: acute/chronic HFpEF -initially given IV lasix and had rising mill washer Echo 11/12: EF 50-55%, left ventricular systolic function low normal, no regional WMA, RV mildly dilated, RV systolic function normal, severe pulmonary hypertension and moderately dilated IVC, moderate tricuspid regurg. Echo this admission largely unchanged Creatinine climbed up to 2.47, BUN also elevated but also on steroids With evidence of volume overload as above with increasing weight, developing peripheral edema, and continued dyspnea as above -attempting to diurese again with IV lasix on 10/06 with higher doses given worsening dyspnea -follow daily weights, I/Os -follow BMP (3) COPD (chronic obstructive pulmonary disease): Plan: with suspected exacerbation treated without improvement PFTs 2021 with mild obstruction, poor bronchodilator response due to ongoing cough/wheezing/dyspnea -giving prednisone burst and taper-now done cont nebs prn cont pulmonary toilet Consult pulmonology appreciated (4) Anorexia: Plan: Likely 2nd to pneumonia, CKD Continues to have very low appetite below his usual-severe added boost BID, MVI prednisone not helping LFTs normal and RUQ US to r/o GB issues-normal Is not moving bowels-add on senna, bisacodyl [place] as needed (5) ST segment changes on electrocardiogram: Plan: admission EKG - inferior ST changes but NO ischemic symptoms and troponins negative - although he mentioned vague episode of chest pain pre-hospital sometime in the last couple of weeks with that said he walks 2-3 miles EVERY DAY without limiting dyspnea, chest pain, etc. he has presumed CAD (numerous CAD risk factors, etc) but no cath to definitively diagnose such - high-sensitivity troponin was negative x2 this admission -cont plavix -cont simvastatin/zetia -unfortunately, even if we wanted to perform stress test at this time, this is not ideal timing due to above issues (acute/chronic CHF, pneumonia, etc) -EKG -- pacing; ST changes laterally are chronic (6) Severe pulmonary hypertension: Plan: cont night-time CPAP at discharge will assess for ambulatory O2 needs given the severity of his pulm HTN -diuresing (7) Permanent atrial fibrillation: Plan: S/p single-chamber pacer placement 2010. Continue Pradaxa 75mg BID. Is not on BB or CCB therapy at baseline. (8) Parkinson's disease: Plan: Continue Sinemet. Appreciate speech therapy eval -- > no dysphagia seen. VFSS no aspiration (9) PAD (peripheral artery disease): Plan: Continue simvastatin and ezetimibe along with Plavix. (10) Hypertension: Plan: Continue amlodipine, clonidine. Most readings acceptable. (11) Hypothyroidism: Plan: Continue levothyroxine. TSH earlier in 2021 wnl. (12) Anemia: Plan: Mild Secondary to CKD stable H/H with hemoglobin 10.5 -check Fe studies, B12, folate (13) Apnea, sleep: Plan: CPAP at night (14) Chronic kidney disease, stage IV (severe): Plan: baseline CrCl 20s baseline Cr 1.8 Acute kidney injury as above with mill washer 2.0, fairly stable from previous Consult Nephrology appreciated (15) NSVT (nonsustained ventricular tachycardia): Plan: brief episode (<10 beats) many days ago -- no symptoms from such recent echo with preserved EF and no LV wall motion abnormalities have since transitioned off telemetry Plan DVT proph - pradaxa PT, OT evals appreciated-with prolonged hospitalization now, will have to reassess once PULM status improves. He will likely need rehab but at this point and is now agreeable. Patient would like [facility] as first choice Disposition-continued stay for ongoing dyspnea, treatment of heart failure Admission and Anticipated Discharge Date Admission Date: September 24, 2022 Subjective Pt feels worse today with his dyspnea. Still very poor appetite and no BM in many days. Dry cough. Feeling weaker. Discussed his care at length with pt, son, and at bedside. Review of Systems Review of Systems: All systems reviewed & are unremarkable except as noted in HPI & below Physical Exam Physical Exam: gen - NAD, alert, awake, oriented to person and place, and time heart - RRR, s1 s2, 2/6 systolic murmur lungs +tachypnea at rest, positive crackles at the left lower and middle lung milan as well as right upper lung field, no wheezing abd - soft NT ND BS+ ext -trace edema left leg greater than right, much improved; left forearm +pitting edema at previous IV site Skin no rashes, some bruising on arms at lab draw sites Results & Data Results & Data ([facility]) Vital Signs (Past 12 Hours) Vital Signs Temp Pulse Pulse Resp BP Pulse Ox O2 Del Method 10/06/22 23:05 74 23 92 10/06/22 22:31 Nasal Cannula 10/06/22 19:32 74 20 92 Nasal Cannula 10/06/22 18:24 80 26 H 154/73 H 89 L Nasal Cannula 10/06/22 15:32 36.3 C L 84 16 162/80 H 91 Nasal Cannula 10/06/22 12:02 70 24 91 Nasal Cannula 10/06/22 11:18 90 Nasal Cannula O2 Flow Rate 10/06/22 23:05 5 10/06/22 22:31 4 10/06/22 19:32 4 10/06/22 18:24 4 10/06/22 15:32 1 10/06/22 12:02 4 10/06/22 11:18 4 Laboratory Results 10/06/22 10/06/22 10/06/22 Range/Units 20:58 20:15 19:54 Sodium 139 (136-145) mmol/L Potassium 3.9 TNP (3.5-5.1) mmol/L Chloride 105 (98-107) mmol/L Carbon Dioxide 25 (21-32) mmol/L Anion Gap 9 (3-11) BUN 96 H (6-23) mg/dl Creatinine 2.11 H (0.6-1.4) mg/dl Est Cr Clr Drug Dosing 23.4 ml/min Est GFR ( Amer) 31.4 ml/min Est GFR (Non-Af Amer) 27.1 ml/min BUN/Creatinine Ratio 45.5 H (10-20) Glucose 128 H (70-99(Fasting)) mg/dl POC Glucose 134 H (70-99) mg/dl Calcium 9.4 (8.5-10.1) mg/dl Magnesium 2.6 H (1.7-2.4) mg/dl 10/06/22 10/06/22 10/06/22 Range/Units 16:42 11:53 07:36 Sodium (136-145) mmol/L Potassium (3.5-5.1) mmol/L Chloride (98-107) mmol/L Carbon Dioxide (21-32) mmol/L Anion Gap (3-11) BUN (6-23) mg/dl Creatinine (0.6-1.4) mg/dl Est Cr Clr Drug Dosing ml/min Est GFR ( Amer) ml/min Est GFR (Non-Af Amer) ml/min BUN/Creatinine Ratio (10-20) Glucose (70-99(Fasting)) mg/dl POC Glucose 163 H 112 H 119 H (70-99) mg/dl Calcium (8.5-10.1) mg/dl Magnesium (1.7-2.4) mg/dl 10/06/22 Range/Units 05:39 Sodium 139 (136-145) mmol/L Potassium 4.0 (3.5-5.1) mmol/L Chloride 106 (98-107) mmol/L Carbon Dioxide 26 (21-32) mmol/L Anion Gap 7 (3-11) BUN 103 H (6-23) mg/dl Creatinine 2.07 H (0.6-1.4) mg/dl Est Cr Clr Drug Dosing 23.9 ml/min Est GFR ( Amer) 32.2 ml/min Est GFR (Non-Af Amer) 27.8 ml/min BUN/Creatinine Ratio 49.8 H (10-20) Glucose 117 H (70-99(Fasting)) mg/dl POC Glucose (70-99) mg/dl Calcium 9.4 (8.5-10.1) mg/dl Magnesium (1.7-2.4) mg/dl PG Care Time/CCT Total # of Minutes Spent Total Time Spent with Patient: Total time spent is greater than 50% in coordination of care (as documented) at patient's floor/unit and/or counseling patient: Coding Level of Care Code 10218 SUB INP/OBS CARE 2/35MIN Diagnoses Pneumonia J18.9 Chronic diastolic congestive heart failure I50.32 COPD (chronic obstructive pulmonary disease) J44.[address] segment changes on electrocardiogram R94.31 Severe pulmonary hypertension I27.20 Permanent atrial fibrillation I48.21 Parkinson's disease G20 PAD (peripheral artery disease) I73.9 Hypertension I10 Hypothyroidism E03.9 Anemia D64.9 Apnea, sleep G47.33 Sleep apnea type: obstructive Chronic kidney disease, stage IV (severe) N18.4 NSVT (nonsustained ventricular tachycardia) I47.29 (1) Apnea, sleep Sleep apnea type: obstructive Qualified Code(s): G47.33 - Obstructive sleep apnea (adult) (pediatric)
[2022-10-07] MEDS: ALBUT/IPRATROP 3MG/0.5MG NEB 3 ML VIAL NEB SCH ×3 (05:02→19:00)
[2022-10-07] MEDS: POLYETHYLENE (MIRALAX) 17 GM PACK PO PRN (05:46)
[2022-10-07] MEDS: LEVOTHYROXINE SODIUM 100 MCG TABLET PO SCH (05:46)
[2022-10-07 06:46] LABS: Basophils # (auto) 0.02 K/uL (0-0.2); Basophils % (auto) 0.1 %; Eosinophils # (auto) 0.01 K/uL (0-0.50); Eosinophils % (auto) 0.1 %; Hematocrit (blood only) 29.1 % (40.1-51.0); Hemoglobin 9.9 g/dl (14.0-18.0); Immature Granulocytes # (auto) 0.22 K/uL (0.00-0.02); Immature Granulocytes % (auto) 1.3 %; Lymphocytes # (auto) 0.52 K/uL (1.2-3.4); Mean Corpuscular Hemoglobin 30.5 pg (25.0-34.0); Mean Corpuscular Volume 89.5 fL (80.0-100.0); Mean Platelet Volume 12.6 fL (9.4-12.4); Monocytes # (auto) 1.31 K/uL (0.24-0.82); Monocytes % (auto) 7.5 %; Neutrophils # (auto) 15.48 K/uL (1.4-6.5); Platelet Count 218 K/uL (130-400); RDW Coefficient of Variation 15.2 % (11.5-14.5); RDW Standard Deviation 47.8 fL (36.4-46.3); Red Blood Count 3.25 M/uL (4.63-6.08); White Blood Count 17.56 K/ul (4.8-10.8)
--- NOTE | 2022-10-07 06:54 | XRay Report ---
XR chest 1V portable HISTORY: 86 years-old Male Edema acute shortness of breath COMPARISON: October 04, 2022, chest CT September 24, 2022 TECHNIQUE: AP view of the chest FINDINGS: Cardiac silhouette is enlarged. Left subclavian pacer. Atherosclerosis of the aorta. No pneumothorax. Small pleural effusions redemonstrated along with right basilar and right midlung predominant airspa ce opacities, mildly improved from the most recent study. Degenerative changes of the shoulders and s pine. IMPRESSION: 1. Cardiomegaly with mildly improved interstitial pulmonary edema. 2. Small pleural effusions with mild improvement of the bibasilar and right midlung predominant airsp gisselle opacities. ACT 112: Negative or not required by law. The above report was generated using voice recognition software. It may contain grammatical, syntax o r spelling errors. Electronically signed by: Irvin Talley M.D. 10/07/2022 6:53 AM
[2022-10-07 07:33] LABS: Ferritin 297.3 ng/ml (8-388)
[2022-10-07 07:36] LABS: Albumin Level 3.6 gm/dl (3.4-5.0); BUN Creatinine Ratio 46.2 (10-20); Calcium 9.4 mg/dl (8.5-10.1); Creatinine Clr Calc Pharmacy 23.5 ml/min; Est GFR (African American) 31.6 ml/min; Est GFR (Non-African American) 27.3 ml/min; Magnesium 2.5 mg/dl (1.7-2.4); Phosphorus 3.4 mg/dl (2.5-4.9); Potassium 3.9 mmol/L (3.5-5.1)
[2022-10-07 07:37] LABS: Vitamin B12 747 pg/ml (180-914)
[2022-10-07] MEDS ORDERED: CEFEPIME 1,000 MG in SYRINGE 0 ML IV STA (08:10)
[2022-10-07] MEDS: INSULIN ASPART PER UNIT SC SCH ×4 (08:55→21:36)
[2022-10-07] MEDS: guaiFENesin 600 MG TABCR PO SCH ×2 (08:57→20:06)
[2022-10-07] MEDS: DABIGATRAN ETEXILATE 75 MG CAP PO SCH ×2 (08:57→19:57)
[2022-10-07] MEDS: amLODIPine BESYLATE 5 MG TAB PO SCH (08:57)
[2022-10-07] MEDS: CARBIDOPA/LEVODOPA 25/100MG TAB PO SCH ×3 (08:57→19:58)
[2022-10-07] MEDS: cloNIDine HCL 0.1 MG TAB PO SCH ×3 (08:57→19:58)
[2022-10-07] MEDS: CLOPIDOGREL BISULFATE 75 MG TAB PO SCH (08:58)
[2022-10-07] MEDS: SENNA 8.6 MG TAB PO SCH (08:58)
[2022-10-07] MEDS: CEROVITE ADV FORMULA TAB PO SCH (08:58)
[2022-10-07] MEDS: allopurinoL 100 MG TAB PO SCH (08:58)
[2022-10-07] MEDS: FUROSEMIDE 40 MG/4 ML VIAL IV SCH ×2 (08:59→16:49)
--- NOTE | 2022-10-07 10:03 | Pulmonology Progress Note ---
Date of Service October 07, 2022 Assessment & Plan (1) Abnormal CT scan of lung: (2) Hypoxia: (3) Fluid overload: Plan Recommend continued IV diuretics. His BNP has been elevated and he does have cardiomegaly. He is a very poor candidate for bronchoscopy given his history of difficult to control hypertension, cardiac disease (atrial fibrillation) and use of anticoagulants and Parkinson's disease. His procalcitonin has been unremarkable. Doubtful of bacterial pneumonia. Siri pect chronic aspiration pneumonitis may be playing a role. Recommend aspiration precautions. Hypoxia secondary to VQ mismatch, atelectasis, pulmonary edema and secondary pulm hypertension. Recommend aggressive pulmonary toilet with incentive spirometer and flutter valve. Admission and Anticipated Discharge Date Admission Date: September 24, 2022 Subjective Continues to require 4 to 6 L of supplemental oxygen at rest. He was able to sit up in a chair yesterday. Continues to have exertional dyspnea. Diuresing well with IV Lasix. Discussed with photo tube assembler at bedside. Patient denies any chest pain. No fevers, chills or night sweats. Review of Systems Review of Systems: All systems reviewed & are unremarkable except as noted in HPI & below Physical Exam Constitutional: WD/WN, vitals as above Neck: trachea midline, no thyromegaly Respiratory: + labored breathing; no respiratory distress, no cough and not tachypneic Auscultation: + crackles; no wheezes Cardiovascular: RRR, no murmur, no edema Gastrointestinal (Abdomen): normal bowel sounds, soft, nontender, no hepatosplenomegaly Musculoskeletal: Extremities: extremities normal to inspection Skin: no rashes, warm and dry Lymphatic: no cervical lymphadenopathy Results & Data Results & Data ([facility]) Vital Signs (Past 12 Hours) Vital Signs Temp Pulse Pulse Resp BP BP Pulse Ox 10/07/22 08:00 10/07/22 07:55 36.9 C 67 18 121/61 90 10/07/22 05:02 70 20 93 10/07/22 02:17 70 25 H 93 10/06/22 22:50 36.4 C L 70 18 145/51 H 91 10/06/22 23:05 74 23 92 10/06/22 22:31 O2 Del Method O2 Flow Rate 10/07/22 08:00 Nasal Cannula 5 10/07/22 07:55 Oxymask 7 10/07/22 05:02 Nasal Cannula 4 10/07/22 02:17 5 10/06/22 22:50 Nasal Cannula 4 10/06/22 23:05 5 10/06/22 22:31 Nasal Cannula 4 PG Care Time/CCT Total # of Minutes Spent Total Time Spent with Patient: Total time spent is greater than 50% in coordination of care (as documented) at patient's floor/unit and/or counseling patient: Coding Level of Care Code 70131 SUB INP/OBS CARE 2/35MIN Diagnoses Abnormal CT scan of lung R91.8 Hypoxia R09.02 Fluid overload E87.70
[2022-10-07] MEDS: CALCIUM 600MG + VIT D 400 IU TAB PO SCH (11:26)
--- NOTE | 2022-10-07 13:21 | Hospitalist Progress Note ---
Date of Service October 07, 2022 Assessment & Plan (1) Chronic diastolic congestive heart failure: Plan: acute/chronic HFpEF - acute component had seemingly resolved early in the stay but volume status continues to be overloaded. pulmonary felt that his ongoing respiratory issues were cardiac in origin. despite attempts at diuresis for 10+ days he still is not feeling any better. I spoke with Dr Maya from cardiology who will see patient in consult (patient typically sees Dr Vega in the cardiology office). appreciate his opinion. Echo 11/12: EF 50-55%, left ventricular systolic function low normal, no regional WMA, RV mildly dilated, RV systolic function normal, severe pulmonary hypertension and moderately dilated IVC, moderate tricuspid regurg. Echo this admission largely unchanged. appreciate cards/pulm/nephro recs. cont diuresis. daily BMP. (2) Pneumonia: Plan: completed 7+ days of broad-spectrum IV/PO abx including gram negative coverage with cefepime and atypical coverage with doxy. despite such he has not felt any better. CRP was high but did improved with IV abx/steroids. will repeat CRP in am. legionella urine ag was negative. biofire resp panel was negative. blood/sputum cx's negative. (3) COPD (chronic obstructive pulmonary disease): Plan: with exacerbation PFTs 2021 with mild obstruction, poor bronchodilator response received 7+ days of steroids earlier in the stay wheezing resolved (4) Shortness of breath: Plan: thought to be a combination of both acute/chronic HFpEF and pneumonia along with mild COPD flare despite aggressive diuresis/steroids/abx he continues to feel poorly appreciate cards/pulm/nephro suggestions cont efforts at diuresis (5) ST segment changes on electrocardiogram: Plan: admission EKG - inferior ST changes but NO ischemic symptoms and troponins negative - although he mentioned vague episode of chest pain pre-hospital sometime in the last couple of weeks with that said he walks 2-3 miles EVERY DAY without limiting dyspnea, chest pain, etc. he has presumed CAD (numerous CAD risk factors, etc) but no cath to definitively diagnose such cont plavix cont simvastatin/zetia unfortunately, even if we wanted to perform stress test at this time, this is not ideal timing due to above issues (acute/chronic CHF) no ischemic symptoms while hospitalized (6) Severe pulmonary hypertension: Plan: cont night-time CPAP at discharge will assess for ambulatory O2 needs given the severity of his pul HTN (7) Permanent atrial fibrillation: Plan: S/p single-chamber pacer placement 2010. Continue Pradaxa 75mg BID. Is not on BB or CCB therapy at baseline. (8) Parkinson's disease: Plan: Continue Sinemet. Appreciate speech therapy eval -- > no dysphagia seen. Video swallow normal. (9) PAD (peripheral artery disease): Plan: Continue simvastatin and ezetimibe along with Plavix. (10) Hypertension: Plan: Continue amlodipine, clonidine. Most readings acceptable. (11) Hypothyroidism: Plan: Continue levothyroxine. TSH earlier in 2021 wnl. (12) Anemia: Plan: Mild Secondary to CKD stable H/H (13) Apnea, sleep: Plan: CPAP at night. (14) Chronic kidney disease, stage IV (severe): Plan: baseline CrCl 20s baseline Cr 1.8 Cr >2 in face of diuresis daily BMP while here very high BUN level likely combination of steroids and diuresis (15) NSVT (nonsustained ventricular tachycardia): Plan: brief episode (<10 beats) several days ago -- no symptoms from such recent echo with preserved EF and no LV wall motion abnormalities K wnl Mag wnl monitor for recurrence consider low dose beta lauren if he continues with runs of this but only 1 run since admission (16) Anorexia: Plan: despite Rx of pneumonia no change in appetite recheck crp am check a ESR cont boost BID cont MVI prednisone has not helped Plan DVT proph - pradaxa attempted to call pt's - phone rang and rang then it simply hung up will attempt again tomorrow Admission and Anticipated Discharge Date Admission Date: September 24, 2022 Subjective patient sitting in chair by window getting depressed that he has been here so long denies that he feels any better than a few days ago still short of breath with activity although he rests comfortably at night with CPAP in place minimal cough still very poor appetite energy is poor tele - a.fib/pacing Review of Systems Review of Systems: gen - no fevers or chills cv - no chest pain pulm - no pleuritic pain GI - no abd pain Physical Exam Physical Exam: gen - NAD, no change from prior exams mouth - copious thrush plaques oral cavity neck - JVD present sitting at 90 degrees heart - irregular, s1 s2, 2/6 systolic murmur lungs - minimal rales bases, otherwise CTA b/ abd - soft NT ND BS+ ext - trace edema b/l, pulses 2+ b/l psych - a/o x 3; affect restricted Results & Data Results & Data ([facility]) Vital Signs (Past 12 Hours) Vital Signs Temp Pulse Pulse Resp BP Pulse Ox O2 Del Method 10/07/22 08:00 Nasal Cannula 10/07/22 07:55 36.9 C 67 18 121/61 90 Oxymask 10/07/22 05:02 70 20 93 Nasal Cannula 10/07/22 02:17 70 25 H 93 O2 Flow Rate 10/07/22 08:00 5 10/07/22 07:55 7 10/07/22 05:02 4 10/07/22 02:17 5 Laboratory Results Laboratory Results - last 24 hr 10/06/22 10/06/22 10/06/22 16:42 19:54 20:15 WBC RBC Hgb Hct MCV MCH MCHC RDW Std Deviation RDW Coeff of Italo Plt Count MPV Immature Gran % (Auto) Neut % (Auto) Lymph % (Auto) [place] % (Auto) Eos % (Auto) Baso % (Auto) Neut # (Auto) Lymph # (Auto) [place] # (Auto) Eos # (Auto) Baso # (Auto) Immature Gran # (Auto) Sodium 139 Potassium TNP Chloride 105 Carbon Dioxide 25 Anion Gap 9 BUN 96 H Creatinine 2.11 H Est Cr Clr Drug Dosing 23.4 Est GFR ( Amer) 31.4 Est GFR (Non-Af Amer) 27.1 BUN/Creatinine Ratio 45.5 H Glucose 128 H POC Glucose 163 H 134 H Calcium 9.4 Phosphorus Magnesium 2.6 H Iron TIBC Unsaturated IBC Transferrin % Sat Ferritin B-Natriuretic Peptide Albumin Vitamin B12 Folate Procalcitonin Nasal Screen MRSA (PCR) 10/06/22 10/07/22 10/07/22 20:58 05:39 05:39 WBC 17.56 H RBC 3.25 L Hgb 9.9 L Hct 29.1 L MCV 89.5 MCH 30.5 MCHC 34.0 RDW Std Deviation 47.8 H RDW Coeff of Italo 15.2 H Plt Count 218 MPV 12.6 H Immature Gran % (Auto) 1.3 Neut % (Auto) 88.0 Lymph % (Auto) 3.0 [place] % (Auto) 7.5 Eos % (Auto) 0.1 Baso % (Auto) 0.1 Neut # (Auto) 15.48 H Lymph # (Auto) 0.52 L [place] # (Auto) 1.31 H Eos # (Auto) 0.01 Baso # (Auto) 0.02 Immature Gran # (Auto) 0.22 H Sodium 141 Potassium 3.9 3.9 Chloride 106 Carbon Dioxide 26 Anion Gap 9 BUN 97 H Creatinine 2.10 H Est Cr Clr Drug Dosing 23.5 Est GFR ( Amer) 31.6 Est GFR (Non-Af Amer) 27.3 BUN/Creatinine Ratio 46.2 H Glucose 138 H POC Glucose Calcium 9.4 Phosphorus 3.4 Magnesium 2.5 H Iron 17 L TIBC 180 L Unsaturated IBC 163 Transferrin % Sat 9 L Ferritin 297.3 B-Natriuretic Peptide Albumin 3.6 Vitamin B12 Folate Procalcitonin Nasal Screen MRSA (PCR) 10/07/22 10/07/22 10/07/22 05:39 05:39 07:43 WBC RBC Hgb Hct MCV MCH MCHC RDW Std Deviation RDW Coeff of Italo Plt Count MPV Immature Gran % (Auto) Neut % (Auto) Lymph % (Auto) [place] % (Auto) Eos % (Auto) Baso % (Auto) Neut # (Auto) Lymph # (Auto) [place] # (Auto) Eos # (Auto) Baso # (Auto) Immature Gran # (Auto) Sodium Potassium Chloride Carbon Dioxide Anion Gap BUN Creatinine Est Cr Clr Drug Dosing Est GFR ( Amer) Est GFR (Non-Af Amer) BUN/Creatinine Ratio Glucose POC Glucose 159 H Calcium Phosphorus Magnesium Iron TIBC Unsaturated IBC Transferrin % Sat Ferritin B-Natriuretic Peptide 921 H Albumin Vitamin B12 747 Folate > 22.30 Procalcitonin Nasal Screen MRSA (PCR) 10/07/22 10/07/22 10/07/22 08:21 08:21 08:55 WBC RBC Hgb Hct MCV MCH MCHC RDW Std Deviation RDW Coeff of Itlao Plt Count MPV Immature Gran % (Auto) Neut % (Auto) Lymph % (Auto) [place] % (Auto) Eos % (Auto) Baso % (Auto) Neut # (Auto) Lymph # (Auto) [place] # (Auto) Eos # (Auto) Baso # (Auto) Immature Gran # (Auto) Sodium Potassium Chloride Carbon Dioxide Anion Gap BUN Creatinine Est Cr Clr Drug Dosing Est GFR ( Amer) Est GFR (Non-Af Amer) BUN/Creatinine Ratio Glucose POC Glucose Calcium Phosphorus Magnesium Iron TIBC Unsaturated IBC Transferrin % Sat Ferritin B-Natriuretic Peptide 980 H Albumin Vitamin B12 Folate Procalcitonin 0.42 Nasal Screen MRSA (PCR) Negative 10/07/22 11:32 WBC RBC Hgb Hct MCV MCH MCHC RDW Std Deviation RDW Coeff of Italo Plt Count MPV Immature Gran % (Auto) Neut % (Auto) Lymph % (Auto) [place] % (Auto) Eos % (Auto) Baso % (Auto) Neut # (Auto) Lymph # (Auto) [place] # (Auto) Eos # (Auto) Baso # (Auto) Immature Gran # (Auto) Sodium Potassium Chloride Carbon Dioxide Anion Gap BUN Creatinine Est Cr Clr Drug Dosing Est GFR ( Amer) Est GFR (Non-Af Amer) BUN/Creatinine Ratio Glucose POC Glucose 142 H Calcium Phosphorus Magnesium Iron TIBC Unsaturated IBC Transferrin % Sat Ferritin B-Natriuretic Peptide Albumin Vitamin B12 Folate Procalcitonin Nasal Screen MRSA (PCR) PG Care Time/CCT Total # of Minutes Spent Total Time Spent with Patient: Total time spent is greater than 50% in coordination of care (as documented) at patient's floor/unit and/or counseling patient: Coding Level of Care Code 00048 SUB INP/OBS CARE 235MIN Diagnoses Chronic diastolic congestive heart failure I50.32 Pneumonia J18.9 COPD (chronic obstructive pulmonary disease) J44.9 Shortness of [address] R06.02 ST segment changes on electrocardiogram R94.31 Severe pulmonary hypertension I27.20 Permanent atrial fibrillation I48.21 Parkinson's disease G20 PAD (peripheral artery disease) I73.9 Hypertension I10 Hypothyroidism E03.9 Anemia D64.9 Apnea, sleep G47.33 Sleep apnea type: obstructive Chronic kidney disease, stage IV (severe) N18.4 NSVT (nonsustained ventricular tachycardia) I47.29 Anorexia R63.0 (1) Apnea, sleep Sleep apnea type: obstructive Qualified Code(s): G47.33 - Obstructive sleep a pnea (adult) (pediatric)
--- NOTE | 2022-10-07 14:11 | Nephrology Progress Note ---
Date of Service October 07, 2022 Assessment & Plan (1) Chronic kidney disease, stage IV (severe): (2) Fluid overload: (3) Hypertension: (4) Anemia: Plan 86-year-old male with PMH of stage IV CKD, b/l cr 2.0 to 2.2, COPD with severe pulmonary hypertension, moderate TR, A fi theb, s/p pacemaker admitted on 09/24/2022 with 3-4 days history of shortness of breath. complaints of 3 to 4 days of shortness of breath. he was admitted with possible COPD exacerbation as well as some component of worsening CHF with history of diastolic dysfunction. Has been on empiric antibiotic and steroid as well as Lasix. Renal function stable, electrolyte acceptable, overall net negative around 800 mL on current dose of diuretics although continues to require high dose of oxygen and easily gets short of breath. Respiratory distress is multifactorial including atelectasis. discussed with Pulmonary and feel that he would be a poor candidate for bronchoscopy. --would continue on Lasix 40 mg IV twice a day for today and goal net negative 0.5 to 1 L/d. if continues to be net negative, switching to oral can be considered starting tomorrow. -- start on Venofer IV Will follow Admission and Anticipated Discharge Date Admission Date: September 24, 2022 Scott Crowder was seen and evaluated this morning. He continues to require 5 L of oxygen and gets easily short of breath while talking. did receive 60 mg of IV Lasix yesterday and over last 24 hours almost 800 mL net negative. Function relatively stable. Review of Systems Review of Systems: All systems reviewed & are unremarkable except as noted in Subjective Physical Exam Constitutional: WD/WN, vitals as above + ill appearing Neck: normal visual inspection Respiratory: + labored breathing Auscultation: + crackles; no wheezes Cardiovascular: Rate/Rhythm: regular rate and regular rhythm Heart Sounds: normal S1 and normal S2 Extremities: no edema Skin: no rashes Neurologic: no focal motor deficits and not confused Psychiatric: Orientation: alert and oriented x 3 Results & Data ([facility]) Vital Signs (Past 12 Hours) Vital Signs Temp Pulse Pulse Resp BP Pulse Ox O2 Del Method 10/07/22 13:20 71 18 96 Nasal Cannula 10/07/22 08:00 Nasal Cannula 10/07/22 07:55 36.9 C 67 18 121/61 90 Oxymask 10/07/22 05:02 70 20 93 Nasal Cannula 10/07/22 02:17 70 25 H 93 O2 Flow Rate 10/07/22 13:20 5 10/07/22 08:00 5 10/07/22 07:55 7 10/07/22 05:02 4 10/07/22 02:17 5 PG Care Time/CCT Total # of Minutes Spent Total Time Spent with Patient: Total time spent is greater than 50% in coordination of care (as documented) at patient's floor/unit and/or counseling patient: Coding Level of Care Code 54286 SUB INP/OBS CARE 3/50MIN Diagnoses Chronic kidney disease, stage IV (severe) N18.4 Fluid overload E87.70 Hypertension I10 Anemia D64.9
[2022-10-07] MEDS: NYSTATIN SUSP 500,000 U/5 ML UDC PO SCH ×3 (14:14→19:59)
[2022-10-07] MEDS: IRON SUCROSE 200 MG in 0.9 % SODIUM CHLORIDE 100 ML IV SCH (14:45)
[2022-10-07] MEDS: EZETIMIBE/SIMVASTATIN 10/20 TAB PO SCH (19:57)
--- NOTE | 2022-10-07 21:20 | Cardiology Consultation ---
Date of Consultation October 07, 2022 Assessment & Plan (1) Acute heart failure with preserved ejection fraction (HFpEF): (2) Permanent atrial fibrillation: (3) Pacemaker: (4) Hypertension: (5) Chronic kidney disease, stage 3 (moderate): Plan ASSESSMENT/PLAN: 1. Acute heart failure with preserved EF: He appears hypervolemic on examination and remains dependent on supplemental oxygen. Recommend diuresis. Diuretics have been adjusted by Nephrology today. Would try to achieve at least 1 L net negative fluid balance if possible daily. if he does not reach that: Current diuretic therapy, would increase Lasix to 80 mg IV b.i.d. tomorrow. Monitor renal function closely. Daily weights. Strict I&Os (incontinent at times). Low-sodium diet. Heart failure program referral. Overall, his net fluid balance is less than 2 L negative during this hospital stay, not accou nting for some incontinence. 2. Atrial fibrillation: Permanent. asymptomatic in this regard. Continue anticoagulation for stroke risk reduction. His heart rate has been reasonably controlled despite no rate-controlling medications. Monitor CBC and renal function. 3. Hypoxia: Has been treated for pneumonia, COPD and CHF. Continues to appear hypervolemic. Diuresis as above. 4. CKD: Monitor renal function carefully, especially while titrating diuretics. 5. Hypertension: Blood pressure has been normotensive to hypertensive. Diuresis as above. 6. Disposition: Cardiology will continue to follow. Patient care discussed with primary hospitalist, Dr. Tam. Heart failure program referral. Follow-up with Dr. Vega on discharge. Highly complex medical issues. Thank you for allowing me to participate in the care of your patient. Please call for any other questions or concerns. Sincerely, Haris Maya M.D. History of Present Illness Reason for Consultation: CHF Requesting Physician: Uriah Tam Attending Physician: Uriah Tam History of Present Illness Mr. Ramsay is a very pleasant 86-year-old gentleman with a history significant for permanent atrial fibrillation, single-chamber pacemaker for chronotropic incompetence, peripheral arterial disease s/p renal artery stents, CKD, dyslipidemia, DVT, hypertension, and Parkinson's. His primary social service assistant is Dr. Vega. He has had the following studies/procedures: 1. Nuclear stress 01/23/2021: Negative for ischemia. EF 74%. 2. Single-chamber pacemaker placement 2020: For chronotropic incompetence in the setting of atrial fibrillation. 3. Echo 09/24/2022: Normal LV size, wall motion, systolic function. EF 55-60%. Mild MR. Mild to moderate TR. He was hospitalized on 09/24/2022 after presenting with shortness of breath. He states that he felt short of breath 1-2 days prior to admission. While here, he has been treated for pneumonia and chest x-ray suggested infiltrate. He has required supplemental oxygen due to hypoxia. He has been given intravenous diuretic therapy and treated for COPD exacerbation with prednisone, nebulizer treatments and pulmonary toilet. He has been seen by pulmonology and Nephrology. His fluid balance may be a bit in accurate. Nursing staff reports that he is incontinent at times but she believed that the majority of his urine output is being captured and measured. Based on charted values, his cumulative net negative fluid balance is 1.6 L from 09/24/2022 to present day. Based on charted weights, he weighed 164 lb on presentation but the weight has been as high as 175 lb 2 days ago while weighing 160 lb today. Accuracy of his weight is unclear. He has not noted any significant edema. He denies chest pain, palpitations, syncope, near-syncope, melena, hematochezia, hematuria, or other bleeding. His BNP has been elevated throughout this hospital stay, initially 837 and has trended upward to 980 as of this morning. His creatinine is chronically elevated mostly 1.9-2.2 when reviewing records. During this hospital stay, it has been a size 2.47 on 09/30/2022, but otherwise within typical baseline range. Review of systems: As above. Review of systems otherwise negative/unremarkable. Family history: Noncontributory. Social history: He quit smoking at least 30 years ago. Occasional alcohol. No drugs. Lives at home with his . Two adult children. He was unaccompanied in his hospital room. Allergies Allergy/AdvReac Type Severity Reaction Status Date / Time hydralazine AdvReac Severe anorexia,h/ Verified 08/27/22 14:25 a,nausea,pa lpitations Home Medications Medication Instructions Recorded Confirmed Type CPAP Machine #10 ea 07/13/09/24/22 Rx CPAP Machine #1 ea 04/24/20 09/24/22 Rx nitroglycerin 0.4 mg sublingual 0.4 mg buccal UD PRN Chest Pain 01/08/21 09/24/22 Rx tablet (Nitrostat) #25 tabs levothyroxine 100 mcg tablet 100 mcg PO QAM #90 tabs 02/11/22 09/24/22 Rx clopidogrel 75 mg tablet 75 mg PO QAM #90 tabs 05/01/22 09/24/22 Rx potassium chloride 20 mEq 20 meq PO DAILY #90 tabs 05/06/22 09/24/22 Rx tablet,extended release allopurinol 100 mg tablet 200 mg PO QAM #180 tabs 06/30/22 09/24/22 Rx amlodipine 10 mg tablet 10 mg PO QAM #90 tabs 06/30/22 09/24/22 Rx clonidine HCl 0.2 mg tablet 0.2 mg PO TID #540 tabs 06/30/22 09/24/22 Rx furosemide 40 mg tablet 120 mg PO QAM #270 tabs 06/30/22 09/24/22 Rx dabigatran etexilate 75 mg capsule 75 mg PO BID #180 caps 07/28/22 09/24/22 Rx ezetimibe 10 mg-simvastatin 20 mg 1 tab PO HS #90 tabs 07/28/22 09/24/22 Rx tablet carbidopa 25 mg-levodopa 100 mg 1 tab PO TID 90 days #270 tabs 08/27/22 09/24/22 Rx tablet Patient History Medical History Anemia Anticoagulant long-term use Carotid artery stenosis Chronic constipation Chronic kidney disease, stage 3 (moderate) Dyslipidemia Former smoker GERD (gastroesophageal reflux disease) Gout History of DVT (deep vein thrombosis) HTN (hypertension) Hypothyroid Pacemaker (01/2021) Parkinson's disease Permanent atrial fibrillation Pleural effusion Subdural hematoma (2006) Surgical History H/O vasectomy History of appendectomy History of renal stent (2006) Right History of renal stent (2008) Left Hx of tonsillectomy S/P carotid endarterectomy (1994) S/P insertion of inferior vena caval filter Family History Father Diabetes Denies family history of Ovarian cancer Prostate cancer Myocardial infarction Breast cancer Lung cancer Colorectal cancer Stroke Social History Smoking Status: Former smoker Age Started Using Tobacco: 12; Age Quit Using Tobacco: 53; packs per day: 1; Cigarettes Per Day: 20; Second Hand Exposure: No; Hx Alcohol Use: Yes Alcohol type: beer Hx Substance Use: No Preferred Language: Ghanaian Communication Ability: Effective Visual Impairment: No Limitations Hearing Ability: Normal 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 Alert. HEENT: Anicteric sclera. Neck: JVD to the mandible at approximately 45 head elevation. Hepatic jugular reflux noted. No bruits. Normal carotid upstrokes bilaterally. Cardiac: No ventricular heave. Irregularly irregular. Normal S1-S2. 1/6 systolic murmur. No rubs or gallops. Pulmonary: Clear to auscultation bilaterally without wheezes, rales, or rhonchi. Abdomen: Soft, nontender, nondistended, with normoactive bowel sounds. No bruits noted. Extremities: 2+ radial pulses bilaterally. 2+ posterior tibialis pulses bilaterally. 2+ bilateral lower extremity edema distally, extending upward to the hips. No cyanosis. Results & Data ([facility]) Vital Signs (Past 12 Hours) Vital Signs Temp Pulse Resp BP Pulse Ox O2 Del Method O2 Flow Rate 10/07/22 19:00 69 18 89 L Nasal Cannula 4 10/07/22 15:30 37.0 C 65 18 124/58 L 95 Nasal Cannula 5 10/07/22 13:20 71 18 96 Nasal Cannula 5 Intake & Output 10/05/22 10/06/22 10/07/22 10/08/22 06:59 06:59 06:59 06:59 Intake Total 1090 / 1090 565 / 565 923 / 923 710 / 710 Output Total 1100 / 1100 1100 / 1100 1722 / 1722 950 / 950 Balance -10 / -10 -535 / -535 -799 / -799 -240 / -240 Weight 175 lb 4.28 oz 163 lb 12.855 oz 160 lb 7.944 oz 160 lb 7.944 oz Laboratory Results Laboratory Results - last 24 hr 10/06/22 10/07/22 10/07/22 20:58 05:39 05:39 WBC 17.56 H RBC 3.25 L Hgb 9.9 L Hct 29.1 L MCV 89.5 MCH 30.5 MCHC 34.0 RDW Std Deviation 47.8 H RDW Coeff of [place] 15.2 H Plt Count 218 MPV 12.6 H Immature Gran % (Auto) 1.3 Neut % (Auto) 88.0 Lymph % (Auto) 3.0 [place] % (Auto) 7.5 Eos % (Auto) 0.1 Baso % (Auto) 0.1 Neut # (Auto) 15.48 H Lymph # (Auto) 0.52 L [place] # (Auto) 1.31 H Eos # (Auto) 0.01 Baso # (Auto) 0.02 Immature Gran # (Auto) 0.22 H Sodium 141 Potassium 3.9 3.9 Chloride 106 Carbon Dioxide 26 Anion Gap 9 BUN 97 H Creatinine 2.10 H Est Cr Clr Drug Dosing 23.5 Est GFR ( Amer) 31.6 Est GFR (Non-Af Amer) 27.3 BUN/Creatinine Ratio 46.2 H Glucose 138 H POC Glucose Calcium 9.4 Phosphorus 3.4 Magnesium 2.5 H Iron 17 L TIBC 180 L Unsaturated IBC 163 Transferrin % Sat 9 L Ferritin 297.3 B-Natriuretic Peptide Albumin 3.6 Vitamin B12 Folate Procalcitonin Nasal Screen MRSA (PCR) 10/07/22 10/07/22 10/07/22 05:39 05:39 07:43 WBC RBC Hgb Hct MCV MCH MCHC RDW Std Deviation RDW Coeff of [place] Plt Count MPV Immature Gran % (Auto) Neut % (Auto) Lymph % (Auto) [place] % (Auto) Eos % (Auto) Baso % (Auto) Neut # (Auto) Lymph # (Auto) [place] # (Auto) Eos # (Auto) Baso # (Auto) Immature Gran # (Auto) Sodium Potassium Chloride Carbon Dioxide Anion Gap BUN Creatinine Est Cr Clr Drug Dosing Est GFR ( Amer) Est GFR (Non-Af Amer) BUN/Creatinine Ratio Glucose POC Glucose 159 H Calcium Phosphorus Magnesium Iron TIBC Unsaturated IBC Transferrin % Sat Ferritin B-Natriuretic Peptide 921 H Albumin Vitamin B12 747 Folate > 22.30 Procalcitonin Nasal Screen MRSA (PCR) 10/07/22 10/07/22 10/07/22 08:21 08:21 08:55 WBC RBC Hgb Hct MCV MCH MCHC RDW Std Deviation RDW Coeff of [place] Plt Count MPV Immature Gran % (Auto) Neut % (Auto) Lymph % (Auto) [place] % (Auto) Eos % (Auto) Baso % (Auto) Neut # (Auto) Lymph # (Auto) [place] # (Auto) Eos # (Auto) Baso # (Auto) Immature Gran # (Auto) Sodium Potassium Chloride Carbon Dioxide Anion Gap BUN Creatinine Est Cr Clr Drug Dosing Est GFR ( Amer) Est GFR (Non-Af Amer) BUN/Creatinine Ratio Glucose POC Glucose Calcium Phosphorus Magnesium Iron TIBC Unsaturated IBC Transferrin % Sat Ferritin B-Natriuretic Peptide 980 H Albumin Vitamin B12 Folate Procalcitonin 0.42 Nasal Screen MRSA (PCR) Negative 10/07/22 10/07/22 10/07/22 11:32 16:37 20:52 WBC RBC Hgb Hct MCV MCH MCHC RDW Std Deviation RDW Coeff of [place] Plt Count MPV Immature Gran % (Auto) Neut % (Auto) Lymph % (Auto) [place] % (Auto) Eos % (Auto) Baso % (Auto) Neut # (Auto) Lymph # (Auto) [place] # (Auto) Eos # (Auto) Baso # (Auto) Immature Gran # (Auto) Sodium Potassium Chloride Carbon Dioxide Anion Gap BUN Creatinine Est Cr Clr Drug Dosing Est GFR ( Amer) Est GFR (Non-Af Amer) BUN/Creatinine Ratio Glucose POC Glucose 142 H 150 H 173 H Calcium Phosphorus Magnesium Iron TIBC Unsaturated IBC Transferrin % Sat Ferritin B-Natriuretic Peptide Albumin Vitamin B12 Folate Procalcitonin Nasal Screen MRSA (PCR) Diagnostic Findings He is not on telemetry today. ECGs personally reviewed: ECG 09/24/2022 at 8:34 a.m.: Atrial fibrillation with frequent ventricular pacing. Inferolateral ST/T-wave abnormality. ECG 09/29/2022 at 6:16 a.m.: Ventricular paced 61 bpm. ECG 10/02/2022 at 2:51 p.m.: Atrial fibrillation with occasional ventricular paced complex. Inferolateral ST/T-wave abnormality. Echo report from 09/24/2022 reviewed as noted above in HPI. Cardiology visit note from the outpatient setting on 06/03/2022 reviewed. Nephrology and pulmonology notes reviewed. Hospital notes reviewed. History and physical reviewed. Labs reviewed. Chest x-ray 10/07/2022 personally reviewed: Small bilateral pleural effusions. Single lead pacemaker noted. Radiology interpreted as mildly improved interstitial pulmonary edema with small pleural effusions and mild improvement of the bibasilar and right mid lung predominant airspace opacities. CTA chest 09/24/2022: Interstitial pulmonary edema per Radiology with scattered alveolar opacities, greatest within the right upper lobe. Small right and trace left pleural effusions. Medications Administered Current Inpatient Medications Acetaminophen (Acetaminophen 325 Mg Tab) 650 mg PO Q4H PRN PRN Reason: Pain or Fever Stop: 10/24/22 12:10 Last Admin: 09/25/22 21:24 Dose: 650 mg Albuterol (Albut/Ipratrop 3mg/0.5mg Neb 3 Ml Vial) 3 ml NEB TIDR [facility] Stop: 11/01/22 08:59 Last Admin: 10/07/22 19:00 Dose: 3 ml Allopurinol (Allopurinol 100 Mg Tab) 200 mg PO QAM [facility] Stop: 10/25/22 08:59 Last Admin: 10/07/22 08:58 Dose: 200 mg Amlodipine Besylate (Amlodipine Besylate 5 Mg Tab) 10 mg PO QAM [facility] Stop: 10/25/22 08:59 Last Admin: 10/07/22 08:57 Dose: 10 mg Bisacodyl (Bisacodyl 10 Mg Supp) 10 mg SD DAILY PRN PRN Reason: Constipation Stop: 11/05/22 08:53 Last Admin: 10/06/22 18:10 Dose: 10 mg Calcium/Vitamin D (Calcium 600mg + Vit D 400 Iu Tab) 1 tab PO QDL [facility] Stop: 10/24/22 12:10 Last Admin: 10/07/22 11:26 Dose: 1 tab Carbidopa/Levodopa (Carbidopa/Levodopa 25/100mg Tab) 1 tab PO TID [facility] Stop: 10/24/22 13:59 Last Admin: 10/07/22 19:58 Dose: 1 tab Clonidine HCl (Clonidine Hcl 0.1 Mg Tab) 0.2 mg PO TID [facility] Stop: 10/24/22 13:59 Last Admin: 10/07/22 19:58 Dose: 0.2 mg Clopidogrel Bisulfate (Clopidogrel Bisulfate 75 Mg Tab) 75 mg PO QAM [facility] Stop: 10/25/22 08:59 Last Admin: 10/07/22 08:58 Dose: 75 mg Dabigatran (Dabigatran Etexilate 75 Mg Cap) 75 mg PO BID [facility] Stop: 10/24/22 20:59 Last Admin: 10/07/22 19:57 Dose: 75 mg Dextrose (Dextrose 50% 50 Ml Syringe) 25 - 50 ml IV UD PRN; Protocol PRN Reason: Hypoglycemia Protocol Stop: 10/28/22 20:29 Ezetimibe/Simvastatin (Ezetimibe/Simvastatin 10/20 Tab) 1 tab PO HS [facility] Stop: 10/24/22 20:59 Last Admin: 10/07/22 19:57 Dose: 1 tab Furosemide (Furosemide 40 Mg Tab) 40 mg PO QAM [facility] Stop: 11/04/22 08:59 Last Admin: 10/06/22 09:23 Dose: 40 mg Furosemide (Furosemide 40 Mg/4 Ml Vial) 40 mg IV BID17 [facility] Stop: 11/06/22 08:59 Last Admin: 10/07/22 16:49 Dose: 40 mg Glucagon (Glucagon For Inj 1 Mg Vial) 1 mg IM UD PRN; Protocol PRN Reason: Hypoglycemia Protocol Stop: 10/28/22 20:29 Glucose (Glucose 40% Gel 15 Gm Tube) 15 - 30 gm PO UD PRN; Protocol PRN Reason: Hypoglycemia Protocol Stop: 10/28/22 20:29 Glucose (Glucose 10 Tab/Tube) 4 - 8 tab PO UD PRN; Protocol PRN Reason: Hypoglycemia Protocol Stop: 10/28/22 20:29 Guaifenesin (Guaifenesin 600 Mg Tabcr) 600 mg PO Q12 [facility] Stop: 10/29/22 14:49 Last Admin: 10/07/22 20:06 Dose: 600 mg Iron Sucrose 200 mg/ Sodium (Chloride) 110 mls @ 220 mls/hr IV Q24H [facility] Stop: 10/11/22 14:59 Last Infusion: 10/07/22 15:26 Dose: Infused Insulin Aspart (Insulin Aspart Per Unit) 0 units SC ACHS [facility] Stop: 10/28/22 20:59 Last Admin: 10/07/22 16:54 Dose: Not Given Insulin Glargine (Lantus Per Unit Charge) 8 units SQ HS [facility] Stop: 10/29/22 20:59 Last Admin: 10/06/22 21:12 Dose: 8 units Levothyroxine Sodium (Levothyroxine Sodium 100 Mcg Tablet) 100 mcg PO DAILYBB [facility] Stop: 10/25/22 06:29 Last Admin: 10/07/22 05:46 Dose: 100 mcg Miscellaneous (Carbohydrates For Hypoglycemia ) 15 - 30 gm PO UD PRN PRN Reason: Hypoglycemia Treatment Stop: 10/28/22 20:29 Multivitamins/Minerals (Cerovite Adv Formula Tab) 1 tab PO QAM [facility] Stop: 10/28/22 08:59 Last Admin: 10/07/22 08:58 Dose: 1 tab Nitroglycerin (Nitroglycerin Sl 0.4 Mg/Tab Tab) 0.4 mg SL UD PRN PRN Reason: Chest Pain Stop: 10/24/22 12:10 Nystatin (Nystatin Susp 500,000 U/5 Ml Udc) 5 ml PO QID [facility] Stop: 10/17/22 13:19 Last Admin: 10/07/22 19:59 Dose: 5 ml Polyethylene Glycol (Polyethylene (Miralax) 17 Gm Pack) 17 gm PO DAILY PRN PRN Reason: Constipation Stop: 11/04/22 15:54 Last Admin: 10/07/22 05:46 Dose: 17 gm Sennosides (Senna 8.6 Mg Tab) 17.2 mg PO QAM [facility] Stop: 11/05/22 09:14 Last Admin: 10/07/22 08:58 Dose: 17.2 mg PG Care Time/CCT Total # of Minutes Spent Total Time Spent with Patient: Total time spent is greater than 50% in coordination of care (as documented) at patient's floor/unit and/or counseling patient: Coding Level of Care Code 72821 INT INP/OBS CARE 3/75MIN Diagnoses Acute heart failure with preserved ejection fraction (HFpEF) I50.31 Permanent atrial fibrillation I48.21 Pacemaker Z95.0 Hypertension I10 Chronic kidney disease, stage 3 (moderate) N18.3
[2022-10-07] MEDS: LANTUS PER UNIT CHARGE SQ SCH (21:36)
[2022-10-08] MEDS: LEVOTHYROXINE SODIUM 100 MCG TABLET PO SCH (05:46)
[2022-10-08 06:59] LABS: Hematocrit (blood only) 29.7 % (40.1-51.0); Hemoglobin 10.1 g/dl (14.0-18.0); Mean Corpuscular Hemoglobin 30.4 pg (25.0-34.0); Mean Corpuscular Volume 89.5 fL (80.0-100.0); Platelet Count 229 K/uL (130-400); RDW Coefficient of Variation 15.6 % (11.5-14.5); RDW Standard Deviation 48.7 fL (36.4-46.3); Red Blood Count 3.32 M/uL (4.63-6.08); White Blood Count 17.29 K/ul (4.8-10.8)
[2022-10-08] MEDS: ALBUT/IPRATROP 3MG/0.5MG NEB 3 ML VIAL NEB SCH (07:13)
[2022-10-08 07:37] LABS: Calcium 9.1 mg/dl (8.5-10.1); Potassium 3.4 mmol/L (3.5-5.1)
[2022-10-08 07:42] LABS: BUN Creatinine Ratio 43.5 (10-20); C Reactive Protein 12.9 mg/dl (0-0.5); Creatinine Clr Calc Pharmacy 24.7 ml/min; Est GFR (African American) 33.5 ml/min; Est GFR (Non-African American) 28.9 ml/min
[2022-10-08] MEDS ORDERED: ALBUT/IPRATROP 3MG/0.5MG NEB 3 ML VIAL NEB PRN (08:36)
[2022-10-08] MEDS: allopurinoL 100 MG TAB PO SCH (09:12)
[2022-10-08] MEDS: DABIGATRAN ETEXILATE 75 MG CAP PO SCH (09:12)
[2022-10-08] MEDS: guaiFENesin 600 MG TABCR PO SCH ×2 (09:12→20:32)
[2022-10-08] MEDS: CARBIDOPA/LEVODOPA 25/100MG TAB PO SCH ×3 (09:12→20:33)
[2022-10-08] MEDS: NYSTATIN SUSP 500,000 U/5 ML UDC PO SCH ×4 (09:12→20:32)
[2022-10-08] MEDS: SENNA 8.6 MG TAB PO SCH (09:12)
[2022-10-08] MEDS: cloNIDine HCL 0.1 MG TAB PO SCH ×3 (09:12→20:32)
[2022-10-08] MEDS: CLOPIDOGREL BISULFATE 75 MG TAB PO SCH (09:12)
[2022-10-08] MEDS: CEROVITE ADV FORMULA TAB PO SCH (09:13)
[2022-10-08] MEDS: amLODIPine BESYLATE 5 MG TAB PO SCH (09:13)
[2022-10-08] MEDS: FUROSEMIDE 40 MG/4 ML VIAL IV SCH ×2 (09:13→17:49)
[2022-10-08] MEDS: INSULIN ASPART PER UNIT SC SCH ×4 (09:14→20:34)
[2022-10-08] MEDS: POLYETHYLENE (MIRALAX) 17 GM PACK PO PRN (09:19)
[2022-10-08] MEDS: POTASSIUM CHLORIDE CRTAB 20 MEQ TABCR PO SCH ×2 (09:19→20:33)
--- NOTE | 2022-10-08 11:10 | Cardiology Progress Note ---
Date of Service October 08, 2022 Assessment & Plan (1) Acute heart failure with preserved ejection fraction (HFpEF): (2) Permanent atrial fibrillation: (3) Pacemaker: (4) Hypertension: (5) Chronic kidney disease, stage 3 (moderate): Plan ASSESSMENT/PLAN: 1. Acute heart failure with preserved EF: He appears hypervolemic on examination and remains dependent on supplemental oxygen. Continue Lasix 40 mg IV with hopes of attaining at least 1 L net negative fluid balance again today. If following short of that goal, would suggest increasing Lasix to 80 mg IV twice daily. Monitor renal function closely. Daily weights. Strict I&Os (incontinent at times). Low-sodium diet. Heart failure program referral. 2. Atrial fibrillation: Permanent. Asymptomatic in this regard. Continue anticoagulation for stroke risk reduction. His heart rate has been reasonably controlled despite no rate-controlling medications. Monitor CBC and renal function. 3. Hypoxia: Has been treated for pneumonia, COPD and CHF. Continues to appear hypervolemic. Diuresis as above. 4. CKD: Monitor renal function carefully, especially while titrating diuretics. 5. Hypertension: Blood pressure has been normotensive to hypertensive. Diuresis as above. 6. Leukocytosis: We will refer to to hospitalist service. Has been treated for pneumonia. 7. Disposition: Cardiology will continue to follow. Patient care communicated with primary hospitalist, Dr. Tam. Heart failure program referral. Follow-up with Dr. Vega on discharge. Highly complex medical issues. Admission and Anticipated Discharge Date Admission Date: September 24, 2022 Subjective He remains short of breath but states he may feel a bit better today. He denies chest pain, syncope, near syncope, palpitations, or bleeding. He admits that he had increased urine output yesterday. He was alone in his hospital room. Physical Exam Physical Exam: Gen.: No acute distress. Alert. HEENT: Anicteric sclera. Neck: Elevated JVD. Hepatic jugular reflux noted. Cardiac: No ventricular heave. Irregularly irregular. Normal S1-S2. 1/6 systolic murmur. No rubs or gallops. Pulmonary: Clear to auscultation bilaterally without wheezes, rales, or rhonchi. Abdomen: Soft, nontender, nondistended, with normoactive bowel sounds. No bruits noted. Extremities: 2+ radial pulses bilaterally. 2+ posterior tibialis pulses bilaterally. 2+ bilateral lower extremity edema distally, extending upward to the hips. No cyanosis. Results & Data ([facility]) Vital Signs (Past 12 Hours) Vital Signs Temp Pulse Pulse Resp BP Pulse Ox O2 Del Method 10/08/22 07:30 36.5 C 72 18 149/60 H 91 Nasal Cannula 10/08/22 07:14 56 L 16 97 Oxymask 10/08/22 02:22 70 30 H 96 10/07/22 23:58 Nasal Cannula, Oxymask, CPAP O2 Flow Rate 10/08/22 07:30 3 10/08/22 07:14 5 10/08/22 02:22 4 10/07/22 23:58 6 Intake & Output 10/06/22 10/07/22 10/08/22 10/09/22 06:59 06:59 06:59 06:59 Intake Total 565 / 565 923 / 923 1360 / 1360 Output Total 1100 / 1100 1722 / 1722 2700 / 2700 Balance -535 / -535 -799 / -799 -1340 / -1340 Weight 163 lb 12.855 oz 160 lb 7.944 oz 156 lb 15.506 oz Laboratory Results Laboratory Results - last 24 hr 10/07/22 10/07/22 10/07/22 11:32 16:37 20:52 WBC RBC Hgb Hct MCV MCH MCHC RDW Std Deviation RDW Coeff of [place] Plt Count MPV ESR Sodium Potassium Chloride Carbon Dioxide Anion Gap BUN Creatinine Est Cr Clr Drug Dosing Est GFR ( Amer) Est GFR (Non-Af Amer) BUN/Creatinine Ratio Glucose POC Glucose 142 H 150 H 173 H Calcium C-Reactive Protein 10/08/22 10/08/22 10/08/22 06:17 06:17 06:17 WBC 17.29 H RBC 3.32 L Hgb 10.1 L Hct 29.7 L MCV 89.5 MCH 30.4 MCHC 34.0 RDW Std Deviation 48.7 H RDW Coeff of [place] 15.6 H Plt Count 229 MPV 13.0 H ESR 29 H Sodium 144 Potassium 3.4 L Chloride 107 Carbon Dioxide 28 Anion Gap 9 BUN 87 H Creatinine 2.00 H Est Cr Clr Drug Dosing 24.7 Est GFR ( Amer) 33.5 Est GFR (Non-Af Amer) 28.9 BUN/Creatinine Ratio 43.5 H Glucose 84 POC Glucose Calcium 9.1 C-Reactive Protein 12.90 H 10/08/22 07:46 WBC RBC Hgb Hct MCV MCH MCHC RDW Std Deviation RDW Coeff of [place] Plt Count MPV ESR Sodium Potassium Chloride Carbon Dioxide Anion Gap BUN Creatinine Est Cr Clr Drug Dosing Est GFR ( Amer) Est GFR (Non-Af Amer) BUN/Creatinine Ratio Glucose POC Glucose 103 H Calcium C-Reactive Protein Diagnostic Findings Chart and labs reviewed. Medications Administered Current Inpatient Medications Acetaminophen (Acetaminophen 325 Mg Tab) 650 mg PO Q4H PRN PRN Reason: Pain or Fever Stop: 10/24/22 12:10 Last Admin: 09/25/22 21:24 Dose: 650 mg Albuterol (Albut/Ipratrop 3mg/0.5mg Neb 3 Ml Vial) 3 ml NEB TIDR PRN PRN Reason: Shortness Of Breath Or Wheezing Stop: 11/01/22 08:59 Allopurinol (Allopurinol 100 Mg Tab) [facility] [place] Stop: 10/25/22 08:59 Last Admin: 10/08/22 09:12 Dose: 200 mg Amlodipine Besylate (Amlodipine Besylate 5 Mg Tab) 10 mg PO QAM [facility] Stop: 10/25/22 08:59 Last Admin: 10/08/22 09:13 Dose: 10 mg Bisacodyl (Bisacodyl 10 Mg Supp) 10 mg [place] DAILY PRN PRN Reason: Constipation Stop: 11/05/22 08:53 Last Admin: 10/06/22 18:10 Dose: 10 mg Calcium/Vitamin D (Calcium 600mg + Vit D 400 Iu Tab) 1 tab PO QDL [facility] Stop: 10/24/22 12:10 Last Admin: 10/07/22 11:26 Dose: 1 tab Carbidopa/Levodopa (Carbidopa/Levodopa 25/100mg Tab) 1 tab PO TID [facility] Stop: 10/24/22 13:59 Last Admin: 10/08/22 09:12 Dose: 1 tab Clonidine HCl (Clonidine Hcl 0.1 Mg Tab) 0.2 mg PO TID [facility] Stop: 10/24/22 13:59 Last Admin: 10/08/22 09:12 Dose: 0.2 mg Clopidogrel Bisulfate (Clopidogrel Bisulfate 75 Mg Tab) 75 mg PO QAM [facility] Stop: 10/25/22 08:59 Last Admin: 10/08/22 09:12 Dose: 75 mg Dabigatran (Dabigatran Etexilate 75 Mg Cap) 75 mg PO BID [facility] Stop: 10/24/22 20:59 Last Admin: 10/08/22 09:12 Dose: 75 mg Dextrose (Dextrose 50% 50 Ml Syringe) 25 - 50 ml IV UD PRN; Protocol PRN Reason: Hypoglycemia Protocol Stop: 10/28/22 20:29 Ezetimibe/Simvastatin (Ezetimibe/Simvastatin 10/20 Tab) 1 tab PO HS [facility] Stop: 10/24/22 20:59 Last Admin: 10/07/22 19:57 Dose: 1 tab Furosemide (Furosemide 40 Mg Tab) 40 mg PO QAM [facility] Stop: 11/04/22 08:59 Last Admin: 10/06/22 09:23 Dose: 40 mg Furosemide (Furosemide 40 Mg/4 Ml Vial) 40 mg IV [id number] [facility] Stop: 11/06/22 08:59 Last Admin: 10/08/22 09:13 Dose: 40 mg Glucagon (Glucagon For Inj 1 Mg Vial) 1 mg IM UD PRN; Protocol PRN Reason: Hypoglycemia Protocol Stop: 10/28/22 20:29 Glucose (Glucose 40% Gel 15 Gm Tube) 15 - 30 gm PO UD PRN; Protocol PRN Reason: Hypoglycemia Protocol Stop: 10/28/22 20:29 Glucose (Glucose 10 Tab/Tube) 4 - 8 tab PO UD PRN; Protocol PRN Reason: Hypoglycemia Protocol Stop: 10/28/22 20:29 Guaifenesin (Guaifenesin 600 Mg Tabcr) 600 mg PO Q12 [facility]AL Stop: 10/29/22 14:49 Last Admin: 10/08/22 09:12 Dose: 600 mg Iron Sucrose 200 mg/ Sodium (Chloride) 110 mls @ 220 mls/hr IV Q24H [facility] Stop: 10/11/22 14:59 Last Infusion: 10/07/22 15:26 Dose: Infused Insulin Aspart (Insulin Aspart Per Unit) 0 units SC ACHS [facility] Stop: 10/28/22 20:59 Last Admin: 10/08/22 09:14 Dose: Not Given Insulin Glargine (Lantus Per Unit Charge) 8 units SQ HS [facility] Stop: 10/29/22 20:59 Last Admin: 10/07/22 21:36 Dose: 8 units Levothyroxine Sodium (Levothyroxine Sodium 100 Mcg Tablet) 100 mcg PO DAILYBB [facility] Stop: 10/25/22 06:29 Last Admin: 10/08/22 05:46 Dose: 100 mcg Miscellaneous (Carbohydrates For Hypoglycemia ) 15 - 30 gm PO UD PRN PRN Reason: Hypoglycemia Treatment Stop: 10/28/22 20:29 Multivitamins/Minerals (Cerovite Adv Formula Tab) 1 tab PO QAM [facility] Stop: 10/28/22 08:59 Last Admin: 10/08/22 09:13 Dose: 1 tab Nitroglycerin (Nitroglycerin Sl 0.4 Mg/Tab Tab) 0.4 mg SL UD PRN PRN Reason: Chest Pain Stop: 10/24/22 12:10 Nystatin (Nystatin Susp 500,000 U/5 Ml Udc) 5 ml PO QID [facility] Stop: 10/17/22 13:19 Last Admin: 10/08/22 09:12 Dose: 5 ml Polyethylene Glycol (Polyethylene (Miralax) 17 Gm Pack) 17 gm PO DAILY PRN PRN Reason: Constipation Stop: 11/04/22 15:54 Last Admin: 10/08/22 09:19 Dose: 17 gm Potassium Chloride (Potassium Chloride Crtab 20 Meq Tabcr) 20 meq PO BID [facility] Stop: 11/07/22 08:59 Last Admin: 10/08/22 09:19 Dose: 20 meq Sennosides (Senna 8.6 Mg Tab) 17.2 mg PO QAM [facility] Stop: 11/05/22 09:14 Last Admin: 10/08/22 09:12 Dose: 17.2 mg PG Care Time/CCT Total # of Minutes Spent Total Time Spent with Patient: Total time spent is greater than 50% in coordination of care (as documented) at patient's floor/unit and/or counseling patient: Coding Level of Care Code 14132 SUB INP/OBS CARE 3/50MIN Diagnoses Acute heart failure with preserved ejection fraction (HFpEF) I50.31 Permanent atrial fibrillation I48.21 Pacemaker Z95.0 Hypertension I10 Chronic kidney disease, stage 3 (moderate) N18.3
[2022-10-08] MEDS ORDERED: PANTOprazole 40 MG TAB PO STA (13:04)
--- NOTE | 2022-10-08 13:48 | Nephrology Progress Note ---
Date of Service October 08, 2022 Assessment & Plan (1) Chronic kidney disease, stage IV (severe): (2) Fluid overload: (3) Hypertension: (4) Anemia: Plan 86-year-old male with PMH of stage IV CKD, b/l cr 2.0 to 2.2, COPD with severe pulmonary hypertension, moderate TR, A fi theb, s/p pacemaker admitted on 09/24/2022 with 3-4 days history of shortness of breath. complaints of 3 to 4 days of shortness of breath. he was admitted with possible COPD exacerbation as well as some component of worsening CHF with history of diastolic dysfunction. Has been on empiric antibiotic and steroid as well as Lasix. Renal function stable, electrolyte acceptable, overall net negative around 1600 mL on current dose of diuretics. Respiratory distress is multifactorial including atelectasis. discussed with Pulmonary and feel that he would be a poor candidate for bronchoscopy. --continue on Lasix 40 mg IV twice a day for today and goal net negative 0.5 to 1 L/d. if continues to be net negative, switching to oral can be considered starting tomorrow. -- continue Venofer IV Will follow Admission and Anticipated Discharge Date Admission Date: September 24, 2022 Scott Crowder was seen and evaluated this morning. He was lying in bed comfortably and reports slight improvement in respiratory status. Had more than 1500 mL net negative with IV Lasix over last 24 hours. did receive 60 mg of IV Lasix yesterday and over last 24 hours. Renal Function relatively stable. Review of Systems Review of Systems: All systems reviewed & are unremarkable except as noted in Subjective Physical Exam Constitutional: WD/WN, vitals as above + ill appearing Respiratory: Auscultation: + diminished lung sounds; no crackles and no wheezes Cardiovascular: Rate/Rhythm: regular rate and regular rhythm Heart Sounds: normal S1 and normal S2 Extremities: no edema Skin: no rashes Neurologic: no focal motor deficits and not confused Psychiatric: Orientation: alert and oriented x 3 Results & Data ([facility]) Vital Signs (Past 12 Hours) Vital Signs Temp Pulse Pulse Resp BP Pulse Ox O2 Del Method 10/08/22 07:30 36.5 C 72 18 149/60 H 91 Nasal Cannula 10/08/22 07:14 56 L 16 97 Oxymask 10/08/22 02:22 70 30 H 96 O2 Flow Rate 10/08/22 07:30 3 10/08/22 07:14 5 10/08/22 02:22 4 PG Care Time/CCT Total # of Minutes Spent Total Time Spent with Patient: Total time spent is greater than 50% in coordination of care (as documented) at patient's floor/unit and/or counseling patient: Coding Level of Care Code 45290 SUB INP/OBS CARE 2/35MIN Diagnoses Chronic kidney disease, stage IV (severe) N18.4 Fluid overload E87.70 Hypertension I10 Anemia D64.9
[2022-10-08] MEDS: CALCIUM 600MG + VIT D 400 IU TAB PO SCH (14:24)
[2022-10-08] MEDS: IRON SUCROSE 200 MG in 0.9 % SODIUM CHLORIDE 100 ML IV SCH (14:36)
--- NOTE | 2022-10-08 16:20 | Pulmonology Progress Note ---
Date of Service October 08, 2022 Assessment & Plan (1) Abnormal CT scan of lung: (2) Hypoxia: (3) Fluid overload: Plan Recommend continued IV diuretics as his creatinine is actually improving with diuresis. His oxygen requirements have also improved over the last 2 days. His BNP has been elevated and he does have cardiomegaly. He is a very poor candidate for bronchoscopy given his history of difficult to control hypertension, cardiac disease (atrial fibrillation) and use of anticoagulants and Parkinson's disease. His procalcitonin has been unremarkable. Doubtful of bacterial pneumonia. 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 Recommend aspiration precautions. Hypoxia secondary to VQ mismatch, atelectasis, pulmonary edema and secondary pulm hypertension. Recommend aggressive pulmonary toilet with incentive spirometer and flutter valve. Recommend aggressive physical therapy as the patient has been essentially bedbound the last couple of days. No further recommendations at this time. Pulmonary to sign off. Thank you for the consultation. Admission and Anticipated Discharge Date Admission Date: September 24, 2022 Subjective Breathing seems to be a bit easier today. He generally has been very weak and has difficulty getting out of bed. Patient apparently had some melena earlier today. He is getting IV iron. Review of Systems Review of Systems: All systems reviewed & are unremarkable except as noted in HPI & below Physical Exam Constitutional: WD/WN, vitals as above Neck: trachea midline, no thyromegaly Respiratory: + labored breathing; no respiratory distress, no cough and not tachypneic Auscultation: + crackles; no wheezes Cardiovascular: RRR, no murmur, no edema Gastrointestinal (Abdomen): normal bowel sounds, soft, nontender, no hepatosplenomegaly Musculoskeletal: Extremities: extremities normal to inspection Skin: no rashes, warm and dry Lymphatic: no cervical lymphadenopathy Results & Data Results & Data ([facility]) Vital Signs (Past 12 Hours) Vital Signs Temp Pulse Resp BP Pulse Ox O2 Del Method O2 Flow Rate 10/08/22 07:30 36.5 C 72 18 149/60 H 91 Nasal Cannula 3 10/08/22 07:14 56 L 16 97 Oxymask 5 PG Care Time/CCT Total # of Minutes Spent Total Time Spent with Patient: Total time spent is greater than 50% in coordination of care (as documented) at patient's floor/unit and/or counseling patient: Coding Level of Care Code 01993 SUB INP/OBS CARE 235MIN Diagnoses Abnormal CT scan of lung R91.8 Hypoxia R09.02 Fluid overload E87.70
[2022-10-08 17:03] LABS: Hematocrit (blood only) 28.1 % (40.1-51.0); Hemoglobin 9.5 g/dl (14.0-18.0)
--- NOTE | 2022-10-08 17:10 | CT Scan Report ---
ABDOMEN AND PELVIS CT WITHOUT CONTRAST CT DOSE: 623.53 mGycm HISTORY: severe anorexia, rectal bleeding TECHNIQUE: Multiaxial CT images of the abdomen and pelvis were performed without contrast. A dose lo wering technique was utilized adhering to the principles of ALARA. COMPARISON STUDY: Chest CT 09/24/2022. FINDINGS: Patchy groundglass densities and interlobular septal thickening within the lung bases. This favors mild pulmonary edema. Small right and trace left pleural effusions are again noted. The heart is enlarged. A pacemaker wire is identified. Consolidation within the lower lobes posteriorly favors atelectasis from the pleural effusions. No pneumoperitoneum. No pneumatosis. No fractures identified . The unenhanced liver, spleen, adrenal glands, gallbladder, and pancreas are unremarkable. An IVC fi lter appears in good position. Calcified plaque within the normal caliber abdominal aorta there is a punctate stone within the right kidney. There is a severely atrophic left kidney. Possible 2.7 cm exo phytic solid mass within the lower pole of the left kidney on image 200. A few subcentimeter hypodens e and hyperdense right renal lesions are technically too small to characterize but favor cysts. Mild right perinephric edema. No ureteral stones. No hydronephrosis. The bladder is decompressed by Partida catheter. There is a large rectal stool ball measuring 9 cm. There is mild presacral edema and mild b veto wall edema. Colonic diverticulosis. No evidence for acute diverticulitis. Suboptimal evaluation f or bowel pathology due to the lack of intravenous and oral contrast. Dense contrast throughout the ma jority of the colon results in suboptimal evaluation. Gas-filled borderline dilated loops of small benton wel and stomach. These are nonspecific but favor a mild ileus. No transition point identified to sugg est an obstruction. No definite bowel wall thickening. Moderate well-formed stool seen throughout the colon. IMPRESSION: 1. Patchy groundglass densities within the lung bases with interlobular septal thickening, cardiomega ly, and bilateral pleural effusions. This favors mild pulmonary edema. 2. Residual dense contrast within the colon from the prior video swallow. No definite bowel wall thic kening or obstruction. 3. Borderline dilated gas-filled loops of small bowel and stomach which favors a mild ileus. 4. Colonic diverticulosis. No evidence for acute diverticulitis. 5. Moderate well-formed stool seen throughout the colon. There is also a 9 cm rectal stool ball. 6. Possible 2.7 cm exophytic solid mass within the lower pole of the left kidney. Consider follow-up renal ultrasound for further evaluation. ACT 112: Negative or not required by law. Electronically signed by: Phi Shaikh M.D. 10/08/2022 5:09 PM
[2022-10-08] MEDS ORDERED: bisacodyL 10 MG SUPP PR STA (18:57)
--- NOTE | 2022-10-08 19:53 | Hospitalist Progress Note ---
Date of Service October 08, 2022 Assessment & Plan (1) Chronic diastolic congestive heart failure: Plan: acute/chronic HFpEF - acute component had seemingly resolved early in the stay but volume status remains clinically & radiographically overloaded. despite attempts at diuresis for 10+ days he still is not feeling any better. Echo 11/12: EF 50-55%, left ventricular systolic function low normal, no regional WMA, RV mildly dilated, RV systolic function normal, severe pulmonary hypertension and moderately dilated IVC, moderate tricuspid regurg. Echo this admission largely unchanged. seen by cardiology/pulm/nephro - aggressive diuresis advised. cont lasix BID. daily BMP. suspect severe CKD is making it difficult to effect a good diuresis. (2) Pneumonia: Plan: completed 7+ days of broad-spectrum IV/PO abx including gram negative coverage with cefepime and atypical coverage with doxy. despite such he has not felt any better. CRP was high but improved with IV abx/steroids. CRP again today is back to >10. legionella urine ag was negative. biofire resp panel was negative. blood/sputum cx's negative. (3) COPD (chronic obstructive pulmonary disease): Plan: with mild exacerbation early in stay now resolved s/p steroids PFTs 2021 with mild obstruction, poor bronchodilator response (4) Shortness of breath: Plan: thought to be a combination of both acute/chronic HFpEF and pneumonia along with mild COPD flare pulmonary HTN likely also contributes despite aggressive diuresis/steroids/abx he continues to feel poorly appreciate cards/pulm/nephro suggestions cont efforts at diuresis he is on chronic Pradaxa thus VTE not suspected (5) ST segment changes on electrocardiogram: Plan: admission EKG - inferior ST changes but NO ischemic symptoms and troponins ne gative - although he mentioned vague episode of chest pain pre-hospital sometime in the last couple of weeks with that said he walks 2-3 miles EVERY DAY without limiting dyspnea, chest pain, etc. he has presumed CAD (numerous CAD risk factors, etc) but no cath to definitively diagnose such cont plavix cont simvastatin/zetia unfortunately, even if we wanted to perform stress test at this time, this is not ideal timing due to above issues (acute/chronic CHF) no ischemic symptoms while hospitalized (6) Severe pulmonary hypertension: Plan: cont night-time CPAP at discharge will assess for ambulatory O2 needs given the severity of his pul HTN (7) Permanent atrial fibrillation: Plan: S/p single-chamber pacer placement 2010. HOLD Pradaxa 75mg BID due to rectal bleeding. Is not on BB or CCB therapy at baseline. (8) Parkinson's disease: Plan: Continue Sinemet. Appreciate speech therapy eval -- > no dysphagia seen. Video swallow normal. (9) PAD (peripheral artery disease): Plan: Continue simvastatin and ezetimibe Hold plavix due to GI bleeding today (10) Hypertension: Plan: Continue amlodipine, clonidine. (11) Hypothyroidism: Plan: Continue levothyroxine. TSH earlier in 2021 wnl. (12) Anemia: Plan: Mild Secondary to CKD stable H/H even despite the blood per rectum seen earlier today (13) Apnea, sleep: Plan: CPAP at night. (14) Chronic kidney disease, stage IV (severe): Plan: baseline CrCl 20s baseline Cr 1.8 Cr 2 today even in face of diuresis daily BMP while here very high BUN level likely combination of steroids and diuresis (15) NSVT (nonsustained ventricular tachycardia): Plan: brief episode (<10 beats) several days ago -- no symptoms from such recent echo with preserved EF and no LV wall motion abnormalities K wnl Mag wnl monitor for recurrence consider low dose beta lauren if he continues with runs of this but only 1 run since admission (16) Anorexia: Plan: despite Rx of pneumonia no change in appetite rechecked crp -- remains high, etiology uncertain ESR wnl now having maroon-colored stools -- GI tract malignancy?? other? poor candidate for endoscopic evaluation cont boost BID cont MVI (17) Blood in stool: Plan: etiology -- diverticular? internal hemorrhoids? AVMs? other pathology. obtain CT abd/pelvis -- hopefully this will give additional information on causes of rectal bleeding (and severe anorexia). serial H/H's. HOLD pradaxa HOLD plavix Plan DVT proph - pradaxa typically but will hold due to #17 DID connect with pt's today by phone - extensive update given Admission and Anticipated Discharge Date Admission Date: September 24, 2022 Subjective tele overnight stable - a.fib with pacing patient, like previous visits, again states he feels "no better" has zero appetite only drinking boost no abd pain had a bowel movement earlier today and staff report it was maroon-colored he reports never having a colonoscopy before Review of Systems Review of Systems: gen - weakness, fatigue persist; anorexia persists psych - feeling depressed CV - no chest pain; interestingly NO orthopnea; no PND pulm - dyspnea with minimal activity; no cough; no wheezing GI - no nausea or emesis - having urinary retention and frequency Physical Exam Physical Exam: gen - NAD, despondent, mild "quiet" tachypnea present mouth - copious thrush plaques oral cavity IMPROVED today neck - JVD present sitting at 90 degrees heart - irregular, s1 s2, 2/6 systolic murmur lungs - mild rales bases unchanged, no wheezing abd - soft NT ND BS+ ext - trace edema b/l, pulses 2+ b/l psych - a/o x 3; affect restricted rectal - maroon-colored stool; not black; no bright red blood; COPIOUS/large amount of stool in rectal vault; unable to feel his prostate (wasn't able to reach such due to stool); no obvious hemorrhoid Results & Data Results & Data ([facility]) Vital Signs (Past 12 Hours) Vital Signs Temp Pulse Resp BP Pulse Ox O2 Del Method O2 Flow Rate 10/08/22 15:56 36.6 C 72 20 123/58 L 98 Nasal Cannula 3 Laboratory Results Laboratory Results - last 24 hr 10/07/22 10/08/22 10/08/22 20:52 06:17 06:17 WBC 17.29 H RBC 3.32 L Hgb 10.1 L Hct 29.7 L MCV 89.5 MCH 30.4 MCHC 34.0 RDW Std Deviation 48.7 H RDW Coeff of Italo 15.6 H Plt Count 229 MPV 13.0 H ESR 29 H Sodium Potassium Chloride Carbon Dioxide Anion Gap BUN Creatinine Est Cr Clr Drug Dosing Est GFR ( Amer) Est GFR (Non-Af Amer) BUN/Creatinine Ratio Glucose POC Glucose 173 H Calcium C-Reactive Protein Stool Occult Bld Scrn 10/08/22 10/08/22 10/08/22 06:17 07:46 11:35 WBC RBC Hgb Hct MCV MCH MCHC RDW Std Deviation RDW Coeff of Italo Plt Count MPV ESR Sodium 144 Potassium 3.4 L Chloride 107 Carbon Dioxide 28 Anion Gap 9 BUN 87 H Creatinine 2.00 H Est Cr Clr Drug Dosing 24.7 Est GFR ( Amer) 33.5 Est GFR (Non-Af Amer) 28.9 BUN/Creatinine Ratio 43.5 H Glucose 84 POC Glucose 103 H 129 H Calcium 9.1 C-Reactive Protein 12.90 H Stool Occult Bld Scrn 10/08/22 10/08/22 10/08/22 13:20 16:53 16:57 WBC RBC Hgb 9.5 L Hct 28.1 L MCV MCH MCHC RDW Std Deviation RDW Coeff of Italo Plt Count MPV ESR Sodium Potassium Chloride Carbon Dioxide Anion Gap BUN Creatinine Est Cr Clr Drug Dosing Est GFR ( Amer) Est GFR (Non-Af Amer) BUN/Creatinine Ratio Glucose POC Glucose 159 H Calcium C-Reactive Protein Stool Occult Bld Scrn Positive A PG Care Time/CCT Total # of Minutes Spent Total Time Spent with Patient: Total time spent is greater than 50% in coordination of care (as documented) at patient's floor/unit and/or counseling patient: Coding Level of Care Code 72633 SUB INP/OBS CARE 3/50MIN Diagnoses Chronic diastolic congestive heart failure I50.32 Pneumonia J18.9 COPD (chronic obstructive pulmonary disease) J44.[address] of [address] segment changes on electrocardiogram R94.31 Severe pulmonary hypertension I27.20 Permanent atrial fibrillation I48.21 Parkinson's disease G20 PAD (peripheral artery disease) I73.9 Hypertension I10 Hypothyroidism E03.9 Anemia D64.9 Apnea, sleep G47.33 Sleep apnea type: obstructive Chronic kidney disease, stage IV (severe) N18.4 NSVT (nonsustained ventricular tachycardia) I47.29 Anorexia R63.0 Blood in stool K92.1 (1) Apnea, sleep Sleep apnea type: obstructive Qualified Code(s): G47.33 - Obstructive sleep apnea (adult) (pediatric)
[2022-10-08] MEDS: EZETIMIBE/SIMVASTATIN 10/20 TAB PO SCH (20:33)
[2022-10-08] MEDS: LANTUS PER UNIT CHARGE SQ SCH (20:33)
[2022-10-09] MEDS: LEVOTHYROXINE SODIUM 100 MCG TABLET PO SCH (05:44)
[2022-10-09 07:35] LABS: Hematocrit (blood only) 26.2 % (40.1-51.0); Hemoglobin 8.8 g/dl (14.0-18.0); Mean Corpuscular Hemoglobin 30.7 pg (25.0-34.0); Mean Corpuscular Hgb Conc 33.6 g/dL (32.0-36.0); Mean Corpuscular Volume 91.3 fL (80.0-100.0); Mean Platelet Volume 13.2 fL (9.4-12.4); Platelet Count 171 K/uL (130-400); RDW Coefficient of Variation 15.9 % (11.5-14.5); RDW Standard Deviation 51.1 fL (36.4-46.3); Red Blood Count 2.87 M/uL (4.63-6.08); White Blood Count 13.61 K/ul (4.8-10.8)
[2022-10-09 08:38] LABS: BUN Creatinine Ratio 41.1 (10-20); C Reactive Protein 10.85 mg/dl (0-0.5); Calcium 8.4 mg/dl (8.5-10.1); Creatinine Clr Calc Pharmacy 25.7 ml/min; Est GFR (African American) 35.2 ml/min; Est GFR (Non-African American) 30.4 ml/min; Potassium 3.4 mmol/L (3.5-5.1)
[2022-10-09] MEDS: INSULIN ASPART PER UNIT SC SCH ×3 (09:10→18:01)
[2022-10-09] MEDS: allopurinoL 100 MG TAB PO SCH (09:12)
[2022-10-09] MEDS: amLODIPine BESYLATE 5 MG TAB PO SCH (09:14)
[2022-10-09] MEDS: CARBIDOPA/LEVODOPA 25/100MG TAB PO SCH ×3 (09:15→21:38)
[2022-10-09] MEDS: cloNIDine HCL 0.1 MG TAB PO SCH ×3 (09:16→21:38)
[2022-10-09] MEDS: guaiFENesin 600 MG TABCR PO SCH ×2 (09:17→21:38)
[2022-10-09] MEDS: CEROVITE ADV FORMULA TAB PO SCH (09:18)
[2022-10-09] MEDS: PANTOprazole 40 MG TAB PO SCH (09:19)
[2022-10-09] MEDS: POTASSIUM CHLORIDE CRTAB 20 MEQ TABCR PO SCH ×3 (09:20→21:37)
[2022-10-09] MEDS: SENNA 8.6 MG TAB PO SCH (09:20)
[2022-10-09] MEDS: NYSTATIN SUSP 500,000 U/5 ML UDC PO SCH ×4 (09:24→21:37)
[2022-10-09] MEDS: FUROSEMIDE 40 MG/4 ML VIAL IV SCH ×2 (09:27→17:42)
--- NOTE | 2022-10-09 09:57 | Cardiology Progress Note ---
Date of Service October 09, 2022 Assessment & Plan (1) Acute heart failure with preserved ejection fraction (HFpEF): (2) Permanent atrial fibrillation: (3) Pacemaker: (4) Hypertension: (5) Chronic kidney disease, stage 3 (moderate): Plan ASSESSMENT/PLAN: 1. Acute heart failure with preserved EF: Still hypervolemic, but improving daily. Recommend continuing Lasix 40 mg IV twice daily. Try to achieve approx 1 L net negative fluid balance again today. Monitor renal function closely. Daily weights. Strict I&Os (incontinent at times). Low-sodium diet. Heart failure program referral. 2. Atrial fibrillation: Permanent. Asymptomatic in this regard. Continue anticoagulation for stroke risk reduction. His heart rate has been reasonably controlled despite no rate-controlling medications. Monitor CBC and renal function. 3. Hypoxia: Has been treated for pneumonia, COPD and CHF. Continues to appear hypervolemic. Diuresis as above. 4. CKD: Monitor renal function carefully, especially while titrating diuretics. 5. Hypertension: Blood pressure has been normotensive to hypertensive. No changes made today. 6. Leukocytosis: We will refer to to hospitalist service. Has been treated for pneumonia. 7. Disposition: Cardiology will continue to follow. Patient care communicated with primary hospitalist, Dr. Tam. Heart failure program referral. Follow-up with Dr. Vega on discharge. Highly complex medical issues. Admission and Anticipated Discharge Date Admission Date: September 24, 2022 Subjective He states that he feels no better but then states that he is not short of breath. He denies orthopnea, chest pain, syncope, palpitations. Nursing staff was present at the bedside. Review of systems: As above. Physical Exam Physical Exam: Gen.: No acute distress. Alert. HEENT: Anicteric sclera. Neck: Elevated JVD but improving. Hepatic jugular reflux noted. Cardiac: No ventricular heave. Irregularly irregular. Normal S1-S2. 1/6 systolic murmur. No rubs or gallops. Pulmonary: Clear to auscultation bilaterally without wheezes, rales, or rhonchi. Abdomen: Soft, nontender, nondistended, with normoactive bowel sounds. No bruits noted. Extremities: 2+ radial pulses bilaterally. 2+ posterior tibialis pulses bilaterally. 1+ bilateral lower extremity edema distally, extending upward to the hips. No cyanosis. Results & Data ([facility]) Vital Signs (Past 12 Hours) Vital Signs Temp Pulse Pulse Resp BP BP Pulse Ox 10/09/22 07:30 36.6 C 66 17 136/56 L 91 10/09/22 03:13 71 15 94 10/09/22 02:30 36.5 C 63 20 128/57 L 94 10/08/22 23:20 36.4 C L 61 22 134/60 93 10/08/22 22:27 63 26 H 92 O2 Del Method O2 Flow Rate 10/09/22 07:30 Nasal Cannula 3 10/09/22 03:13 3 10/09/22 02:30 CPAP 10/08/22 23:20 CPAP 10/08/22 22:27 3 Intake & Output 10/07/22 10/08/22 10/09/22 10/10/22 06:59 06:59 06:59 06:59 Intake Total 923 / 923 1360 / 1360 1050 / 1050 Output Total 1722 / 1722 2700 / 2700 1751 / 1751 Balance -799 / -799 -1340 / -1340 -701 / -701 Weight 160 lb 7.944 oz 156 lb 15.506 oz 154 lb 1.65 oz Laboratory Results Laboratory Results - last 24 hr 10/08/22 10/08/22 10/08/22 11:35 13:20 16:53 WBC RBC Hgb Hct MCV MCH MCHC RDW Std Deviation RDW Coeff of Italo Plt Count MPV Sodium Potassium Chloride Carbon Dioxide Anion Gap BUN Creatinine Est Cr Clr Drug Dosing Est GFR ( Amer) Est GFR (Non-Af Amer) BUN/Creatinine Ratio Glucose POC Glucose 129 H 159 H Calcium C-Reactive Protein Carcinoembryonic Ag Stool Occult Bld Scrn Positive A 10/08/22 10/08/22 10/09/22 16:57 20:19 06:41 WBC 13.61 H RBC 2.87 L Hgb 9.5 L 8.8 L Hct 28.1 L 26.2 L MCV 91.3 MCH 30.7 MCHC 33.6 RDW Std Deviation 51.1 H RDW Coeff of Italo 15.9 H Plt Count 171 MPV 13.2 H Sodium Potassium Chloride Carbon Dioxide Anion Gap BUN Creatinine Est Cr Clr Drug Dosing Est GFR ( Amer) Est GFR (Non-Af Amer) BUN/Creatinine Ratio Glucose POC Glucose 155 H Calcium C-Reactive Protein Carcinoembryonic Ag Stool Occult Bld Scrn 10/09/22 10/09/22 10/09/22 06:41 06:41 07:16 WBC RBC Hgb Hct MCV MCH MCHC RDW Std Deviation RDW Coeff of Italo Plt Count MPV Sodium 145 Potassium 3.4 L Chloride 110 H Carbon Dioxide 26 Anion Gap 9 BUN 79 H Creatinine 1.92 H Est Cr Clr Drug Dosing 25.7 Est GFR ( Amer) 35.2 Est GFR (Non-Af Amer) 30.4 BUN/Creatinine Ratio 41.1 H Glucose 79 POC Glucose 100 H Calcium 8.4 L C-Reactive Protein 10.85 H Carcinoembryonic Ag 5.0 H Stool Occult Bld Scrn Diagnostic Findings Chart reviewed. Medications Administered Current Inpatient Medications Acetaminophen (Acetaminophen 325 Mg Tab) 650 mg PO Q4H PRN PRN Reason: Pain or Fever Stop: 10/24/22 12:10 Last Admin: 09/25/22 21:24 Dose: 650 mg Albuterol (Albut/Ipratrop 3mg/0.5mg Neb 3 Ml Vial) 3 ml NEB TIDR PRN PRN Reason: Shortness Of Breath Or Wheezing Stop: 11/01/22 08:59 Allopurinol (Allopurinol 100 Mg Tab) 200 mg PO QAM [facility] Stop: 10/25/22 08:59 Last Admin: 10/09/22 09:12 Dose: 200 mg Amlodipine Besylate (Amlodipine Besylate 5 Mg Tab) 10 mg PO QAM [facility] Stop: 10/25/22 08:59 Last Admin: 10/09/22 09:14 Dose: 10 mg Bisacodyl (Bisacodyl 10 Mg Supp) 10 mg NC DAILY PRN PRN Reason: Constipation Stop: 11/05/22 08:53 Last Admin: 10/06/22 18:10 Dose: 10 mg Calcium/Vitamin D (Calcium 600mg + Vit D 400 Iu Tab) 1 tab PO QDL [facility] Stop: 10/24/22 12:10 Last Admin: 10/08/22 14:24 Dose: 1 tab Carbidopa/Levodopa (Carbidopa/Levodopa 25/100mg Tab) 1 tab PO TID [facility] Stop: 10/24/22 13:59 Last Admin: 10/09/22 09:15 Dose: 1 tab Clonidine HCl (Clonidine Hcl 0.1 Mg Tab) 0.2 mg PO TID [facility] Stop: 10/24/22 13:59 Last Admin: 10/09/22 09:16 Dose: 0.2 mg Clopidogrel Bisulfate (Clopidogrel Bisulfate 75 Mg Tab) 75 mg PO QAM [facility] Stop: 10/25/22 08:59 Last Admin: 10/08/22 09:12 Dose: 75 mg Dabigatran (Dabigatran Etexilate 75 Mg Cap) 75 mg PO BID [facility] Stop: 10/24/22 20:59 Last Admin: 10/08/22 09:12 Dose: 75 mg Dextrose (Dextrose 50% 50 Ml Syringe) 25 - 50 ml IV UD PRN; Protocol PRN Reason: Hypoglycemia Protocol Stop: 10/28/22 20:29 Ezetimibe/Simvastatin (Ezetimibe/Simvastatin 07/10 Tab) 1 tab PO HS [facility] Stop: 10/24/22 20:59 Last Admin: 10/08/22 20:33 Dose: 1 tab Furosemide (Furosemide 40 Mg Tab) 40 mg PO QAM [facility] Stop: 11/04/22 08:59 Last Admin: 10/06/22 09:23 Dose: 40 mg Furosemide (Furosemide 40 Mg/4 Ml Vial) 40 mg IV [id number] [facility] Stop: 11/06/22 08:59 Last Admin: 10/09/22 09:27 Dose: 40 mg Glucagon (Glucagon For Inj 1 Mg Vial) 1 mg IM UD PRN; Protocol PRN Reason: Hypoglycemia Protocol Stop: 10/28/22 20:29 Glucose (Glucose 40% Gel 15 Gm Tube) 15 - 30 gm PO UD PRN; Protocol PRN Reason: Hypoglycemia Protocol Stop: 10/28/22 20:29 Glucose (Glucose 10 Tab/Tube) 4 - 8 tab PO UD PRN; Protocol PRN Reason: Hypoglycemia Protocol Stop: 10/28/22 20:29 Guaifenesin (Guaifenesin 600 Mg Tabcr) 600 mg PO Q12 [facility] Stop: 10/29/22 14:49 Last Admin: 10/09/22 09:17 Dose: 600 mg Iron Sucrose 200 mg/ Sodium (Chloride) 110 mls @ 220 mls/hr IV Q24H [facility] Stop: 10/11/22 14:59 Last Infusion: 10/08/22 15:37 Dose: Infused Insulin Aspart (Insulin Aspart Per Unit) 0 units SC ACHS [facility] Stop: 10/28/22 20:59 Last Admin: 10/09/22 09:10 Dose: Not Given Insulin Glargine (Lantus Per Unit Charge) 8 units SQ HS [facility] Stop: 10/29/22 20:59 Last Admin: 10/08/22 20:33 Dose: 8 units Levothyroxine Sodium (Levothyroxine Sodium 100 Mcg Tablet) 100 mcg PO DAILYBB [facility] Stop: 10/25/22 06:29 Last Admin: 10/09/22 05:44 Dose: 100 mcg Miscellaneous (Carbohydrates For Hypoglycemia ) 15 - 30 gm PO UD PRN PRN Reason: Hypoglycemia Treatment Stop: 10/28/22 20:29 Multivitamins/Minerals (Cerovite Adv Formula Tab) 1 tab PO QAM [facility] Stop: 10/28/22 08:59 Last Admin: 10/09/22 09:18 Dose: 1 tab Nitroglycerin (Nitroglycerin Sl 0.4 Mg/Tab Tab) 0.4 mg SL UD PRN PRN Reason: Chest Pain Stop: 10/24/22 12:10 Nystatin (Nystatin Susp 500,000 U/5 Ml Udc) 5 ml PO QID [facility] Stop: 10/17/22 13:19 Last Admin: 10/09/22 09:24 Dose: 5 ml Pantoprazole Sodium (Pantoprazole 40 Mg Tab) 40 mg PO QAM [facility] Stop: 11/08/22 08:59 Last Admin: 10/09/22 09:19 Dose: 40 mg Polyethylene Glycol (Polyethylene (Miralax) 17 Gm Pack) 17 gm PO DAILY PRN PRN Reason: Constipation Stop: 11/04/22 15:54 Last Admin: 10/08/22 09:19 Dose: 17 gm Potassium Chloride (Potassium Chloride Crtab 20 Meq Tabcr) 20 meq PO TID [facility] Stop: 11/08/22 08:59 Last Admin: 10/09/22 09:20 Dose: 20 meq Sennosides (Senna 8.6 Mg Tab) 17.2 mg PO QAM [facility] Stop: 11/05/22 09:14 Last Admin: 10/09/22 09:20 Dose: 17.2 mg PG Care Time/CCT Total # of Minutes Spent Total Time Spent with Patient: Total time spent is greater than 50% in coordination of care (as documented) at patient's floor/unit and/or counseling patient: Coding Level of Care Code 60798 SUB INP/OBS CARE MIN Diagnoses Acute heart failure with preserved ejection fraction (HFpEF) I50.31 Permanent atrial fibrillation I48.21 Pacemaker Z95.0 Hypertension I10 Chronic kidney disease, stage 3 (moderate) N18.3
[2022-10-09] MEDS: CALCIUM 600MG + VIT D 400 IU TAB PO SCH (12:41)
[2022-10-09] MEDS: IRON SUCROSE 200 MG in 0.9 % SODIUM CHLORIDE 100 ML IV SCH (13:52)
[2022-10-09] MEDS ORDERED: Nursing to Pharmacy Communication SCH (16:00)
--- NOTE | 2022-10-09 16:24 | Nephrology Progress Note ---
Date of Service October 09, 2022 Assessment & Plan (1) Chronic kidney disease, stage IV (severe): (2) Fluid overload: (3) Hypertension: (4) Anemia: Plan 86-year-old male with PMH of stage IV CKD, b/l cr 2.0 to 2.2, COPD with severe pulmonary hypertension, moderate TR, A fi theb, s/p pacemaker admitted on 09/24/2022 with 3-4 days history of shortness of breath. complaints of 3 to 4 days of shortness of breath. he was admitted with possible COPD exacerbation as well as some component of worsening CHF with history of diastolic dysfunction. Has been on empiric antibiotic and steroid as well as Lasix. Renal function stable, electrolyte acceptable, overall net negative around 1600 mL on current dose of diuretics. Respiratory distress is multifactorial including atelectasis. --continue on Lasix 40 mg IV twice a day and goal net negative 0.5 to 1 L/d. if continues to be net negative, switching to oral can be considered starting tomorrow. Respiratory status seems to be much better overall. -- continue Venofer IV Will follow Admission and Anticipated Discharge Date Admission Date: September 24, 2022 Scott Vel was seen and evaluated this morning. He was lying in bed comfortably and reports slight improvement in respiratory status. Had more than 700 mL net negative with IV Lasix over last 24 hours. . Renal Function relatively stable. Review of Systems Review of Systems: detailed review of system was otherwise unremarkable. Physical Exam Constitutional: WD/WN, vitals as above + ill appearing Respiratory: Auscultation: + diminished lung sounds; no crackles and no wheezes Cardiovascular: Rate/Rhythm: regular rate and regular rhythm Heart Sounds: normal S1 and normal S2 Extremities: no edema Skin: no rashes Neurologic: no focal motor deficits and not confused Psychiatric: Orientation: alert and oriented x 3 Results & Data ([facility]) Vital Signs (Past 12 Hours) Vital Signs Temp Pulse Resp BP BP Pulse Ox O2 Del Method 10/09/22 13:58 36.6 C 64 18 135/66 93 Nasal Cannula 10/09/22 11:15 Nasal Cannula 10/09/22 08:00 Nasal Cannula 10/09/22 07:30 36.6 C 66 17 136/56 L 91 Nasal Cannula O2 Flow Rate FiO2 10/09/22 13:58 3 10/09/22 11:15 3 10/09/22 08:00 3 10/09/22 07:30 3 PG Care Time/CCT Total # of Minutes Spent Total Time Spent with Patient: Total time spent is greater than 50% in coordination of care (as documented) at patient's floor/unit and/or counseling patient: Coding Level of Care Code 79304 SUB INP/OBS CARE 3/50MIN Diagnoses Chronic kidney disease, stage IV (severe) N18.4 Fluid overload E87.70 Hypertension I10 Anemia D64.9
[2022-10-09 17:26] LABS: Hematocrit (blood only) 26.7 % (40.1-51.0); Hemoglobin 8.8 g/dl (14.0-18.0)
[2022-10-09 19:07] LABS: Fungitell (1-3)-B-D-Glucan 93 pg/mL
--- NOTE | 2022-10-09 20:03 | Hospitalist Progress Note ---
Date of Service October 09, 2022 Assessment & Plan (1) Chronic diastolic congestive heart failure: Plan: acute/chronic HFpEF - acute component had seemingly resolved early in the stay but volume status remains clinically & radiographically overloaded. despite attempts at diuresis for 10+ days he still is not feeling any better. He again said to me "I'm still short of breath". Echo 11/12: EF 50-55%, left ventricular systolic function low normal, no regional WMA, RV mildly dilated, RV systolic function normal, severe pulmonary hypertension and moderately dilated IVC, moderate tricuspid regurg. Echo this admission largely unchanged. seen by cardiology/pulm/nephro - aggressive diuresis advised. cont lasix BID. daily BMP. suspect severe CKD is making it difficult to effect a good diuresis. (2) Pneumonia: Plan: completed 7+ days of broad-spectrum IV/PO abx including gram negative coverage with cefepime and atypical coverage with doxy. despite such he has not felt any better. CRP was high but improved with IV abx/steroids. CRP again is back to >10. legionella urine ag was negative. biofire resp panel was negative. blood/sputum cx's negative. [id number] is POSITIVE. fungal pneumonia?? will inform pulmonary of the + results and go from there. perhaps the elevated crp is reflective of inflammation from fungal infection?? (3) COPD (chronic obstructive pulmonary disease): Plan: with mild exacerbation early in stay now resolved s/p steroids PFTs 2021 with mild obstruction, poor bronchodilator response (4) Shortness of breath: Plan: thought to be a combination of both acute/chronic HFpEF and pneumonia along with mild COPD flare pulmonary HTN likely also contributes despite aggressive diuresis/steroids/abx he continues to feel poorly appreciate cards/pulm/nephro suggestions cont efforts at diuresis he is on chronic Pradaxa thus VTE not suspected (now on hold due to GI bleeding) see #2 above re: fungal serology + (5) ST segment changes on electrocardiogram: Plan: admission EKG - inferior ST changes but NO ischemic symptoms and troponins negative - although he mentioned vague episode of chest pain pre-hospital sometime in the last couple of weeks with that said he walks 2-3 miles EVERY DAY without limiting dyspnea, chest pain, etc. he has presumed CAD (numerous CAD risk factors, etc) but no cath to definitively diagnose such cont plavix cont simvastatin/zetia unfortunately, even if we wanted to perform stress test at this time, this is not ideal timing due to above issues (acute/chronic CHF) no ischemic symptoms while hospitalized (6) Severe pulmonary hypertension: Plan: cont night-time CPAP at discharge will assess for ambulatory O2 needs given the severity of his pul HTN (7) Permanent atrial fibrillation: Plan: S/p single-chamber pacer placement 2010. HOLD Pradaxa 75mg BID due to rectal bleeding. Is not on BB or CCB therapy at baseline. (8) Parkinson's disease: Plan: Continue Sinemet. Appreciate speech therapy eval -- > no dysphagia seen. Video swallow normal. (9) PAD (peripheral artery disease): Plan: Continue simvastatin and ezetimibe Hold plavix due to GI bleeding (10) Hypertension: Plan: Continue amlodipine, clonidine. (11) Hypothyroidism: Plan: Continue levothyroxine. TSH earlier in 2021 wnl. (12) Anemia: Plan: Mild Secondary to CKD now with mild drop in H/H from Gi bleeding cbc in am H/H tonight for stability (13) Apnea, sleep: Plan: CPAP at night. (14) Chronic kidney disease, stage IV (severe): Plan: baseline CrCl 20s baseline Cr 1.8 Cr stable today BMP in am (15) NSVT (nonsustained ventricular tachycardia): Plan: brief episode (<10 beats) several days ago -- no symptoms from such then did not have any additional episodes tele stopped recent echo with preserved EF and no LV wall motion abnormalities K wnl Mag wnl (16) Anorexia: Plan: despite Rx of pneumonia no change in appetite rechecked crp -- remains high, etiology uncertain ESR wnl now having maroon-colored stools -- GI tract malignancy?? other? poor candidate for endoscopic evaluation cont boost BID cont MVI (17) Blood in stool: Plan: etiology -- diverticular? internal hemorrhoids? AVMs? colon ca given mildly elevated CEA level?? HOLD pradaxa HOLD plavix CT a/p with diverticular disease noted no evidence of colitis lots of stool present on CT will ask GI to see in consult - uncertain what to do with the severe constipation & stool ball seen on CT in the setting of his GI bleeding Plan DVT proph - pradaxa typically but will hold due to #17 extensively updated pt's and daughter in law at bedside he may need palliative care if he continues to decline Admission and Anticipated Discharge Date Admission Date: September 24, 2022 Subjective patient sitting in chair by window /daughter in law were visiting he immediately asked me if he could go back to bed - he is tired continues with small amounts of maroon-colored stools scant abdominal discomfort no nausea or vomiting NO APPETITE he doesn't feel breathing is any better Review of Systems Review of Systems: gen - fatigue, weak, no appetite cv - no cp pulm - ongoing dyspnea GI - no significant pain despite blood per rectum - mack in place draining clear yellow urine Physical Exam Physical Exam: gen - NAD, sitting in chair, actually his breathing looks better to me today mouth - copious thrush plaques oral cavity nearly resolved neck - no JVD present sitting at 90 degrees heart - irregular, s1 s2, 2/6 systolic murmur lungs - mild rales bases unchanged, no wheezing abd - soft NT ND BS+ ext - trace edema b/l, pulses 2+ b/l psych - a/o x 3; affect restricted Results & Data Results & Data ([facility]) Vital Signs (Past 12 Hours) Vital Signs Temp Pulse Resp BP Pulse Ox O2 Del Method O2 Flow Rate 10/09/22 13:58 36.6 C 64 18 135/66 93 Nasal Cannula 3 10/09/22 11:15 Nasal Cannula FiO2 10/09/22 13:58 10/09/22 11:15 3 Laboratory Results Laboratory Results - last 24 hr 10/04/22 10/08/22 10/09/22 12:03 20:19 06:41 WBC 13.61 H RBC 2.87 L Hgb 8.8 L Hct 26.2 L MCV 91.3 MCH 30.7 MCHC 33.6 RDW Std Deviation 51.1 H RDW Coeff of Italo 15.9 H Plt Count 171 MPV 13.2 H Sodium Potassium Chloride Carbon Dioxide Anion Gap BUN Creatinine Est Cr Clr Drug Dosing Est GFR ( Amer) Est GFR (Non-Af Amer) BUN/Creatinine Ratio Glucose POC Glucose 155 H Calcium C-Reactive Protein Carcinoembryonic Ag Beta-(1,3)-D-Glucan 93 H B-(1,3)-D-Glucan Intrp POSITIVE A 10/09/22 10/09/22 10/09/22 06:41 06:41 07:16 WBC RBC Hgb Hct MCV MCH MCHC RDW Std Deviation RDW Coeff of Italo Plt Count MPV Sodium 145 Potassium 3.4 L Chloride 110 H Carbon Dioxide 26 Anion Gap 9 BUN 79 H Creatinine 1.92 H Est Cr Clr Drug Dosing 25.7 Est GFR ( Amer) 35.2 Est GFR (Non-Af Amer) 30.4 BUN/Creatinine Ratio 41.1 H Glucose 79 POC Glucose 100 H Calcium 8.4 L C-Reactive Protein 10.85 H Carcinoembryonic Ag 5.0 H Beta-(1,3)-D-Glucan B-(1,3)-D-Glucan Intrp 10/09/22 10/09/22 10/09/22 12:05 16:50 18:00 WBC RBC Hgb 8.8 L Hct 26.7 L MCV MCH MCHC RDW Std Deviation RDW Coeff of Italo Plt Count MPV Sodium Potassium Chloride Carbon Dioxide Anion Gap BUN Creatinine Est Cr Clr Drug Dosing Est GFR ( Amer) Est GFR (Non-Af Amer) BUN/Creatinine Ratio Glucose POC Glucose 93 94 Calcium C-Reactive Protein Carcinoembryonic Ag Beta-(1,3)-D-Glucan B-(1,3)-D-Glucan Intrp PG Care Time/CCT Total # of Minutes Spent Total Time Spent with Patient: Total time spent is greater than 50% in coordination of care (as documented) at patient's floor/unit and/or counseling patient: Coding Level of Care Code 79188 SUB INP/OBS CARE 3/50MIN Diagnoses Chronic diastolic congestive heart failure I50.32 Pneumonia J18.9 COPD (chronic obstructive pulmonary disease) J44.[address] of [address] segment changes on electrocardiogram R94.31 Severe pulmonary hypertension I27.20 Permanent atrial fibrillation I48.21 Parkinson's disease G20 PAD (peripheral artery disease) I73.9 Hypertension I10 Hypothyroidism E03.9 Anemia D64.9 Apnea, sleep G47.33 Sleep apnea type: obstructive Chronic kidney disease, stage IV (severe) N18.4 NSVT (nonsustained ventricular tachycardia) I47.29 Anorexia R63.0 Blood in stool K92.1 (1) Apnea, sleep Sleep apnea type: obstructive Qualified Code(s): G47.33 - Obstructive sleep apnea (adult) (pediatric)
[2022-10-09] MEDS: EZETIMIBE/SIMVASTATIN 10/20 TAB PO SCH (21:38)
[2022-10-09] MEDS: LANTUS PER UNIT CHARGE SQ SCH (23:07)
[2022-10-10] MEDS: INSULIN ASPART PER UNIT SC SCH ×4 (00:14→18:55)
[2022-10-10] MEDS: LEVOTHYROXINE SODIUM 100 MCG TABLET PO SCH (05:44)
[2022-10-10] MEDS: cloNIDine HCL 0.1 MG TAB PO SCH ×3 (08:19→21:17)
[2022-10-10] MEDS: CARBIDOPA/LEVODOPA 25/100MG TAB PO SCH ×3 (08:20→21:17)
[2022-10-10] MEDS: POTASSIUM CHLORIDE CRTAB 20 MEQ TABCR PO SCH ×3 (08:20→21:17)
[2022-10-10] MEDS: allopurinoL 100 MG TAB PO SCH (08:20)
[2022-10-10] MEDS: guaiFENesin 600 MG TABCR PO SCH ×2 (08:21→21:17)
[2022-10-10] MEDS: CEROVITE ADV FORMULA TAB PO SCH (08:21)
[2022-10-10] MEDS: PANTOprazole 40 MG TAB PO SCH (08:21)
[2022-10-10] MEDS: FUROSEMIDE 40 MG/4 ML VIAL IV SCH ×2 (08:21→18:53)
[2022-10-10] MEDS: SENNA 8.6 MG TAB PO SCH (08:21)
[2022-10-10] MEDS: amLODIPine BESYLATE 5 MG TAB PO SCH (08:21)
[2022-10-10] MEDS: NYSTATIN SUSP 500,000 U/5 ML UDC PO SCH ×4 (08:22→21:16)
[2022-10-10 09:18] LABS: Hematocrit (blood only) 29.5 % (40.1-51.0); Hemoglobin 9.7 g/dl (14.0-18.0); Mean Corpuscular Hemoglobin 30.7 pg (25.0-34.0); Mean Corpuscular Hgb Conc 32.9 g/dL (32.0-36.0); Mean Corpuscular Volume 93.4 fL (80.0-100.0); Nucleated RBC # (auto) 0.02 K/uL (0-0); Nucleated RBC % (auto) 0.1 %; Platelet Count 219 K/uL (130-400); RDW Standard Deviation 52.2 fL (36.4-46.3); Red Blood Count 3.16 M/uL (4.63-6.08); White Blood Count 17.19 K/ul (4.8-10.8)
[2022-10-10 09:47] LABS: BUN Creatinine Ratio 38.5 (10-20); Calcium 8.8 mg/dl (8.5-10.1); Creatinine Clr Calc Pharmacy 25.7 ml/min; Est GFR (African American) 35.2 ml/min; Est GFR (Non-African American) 30.4 ml/min; Potassium 3.6 mmol/L (3.5-5.1)
--- NOTE | 2022-10-10 10:17 | Gastrointestinal Consultation ---
Date of Consultation October 10, 2022 Assessment & Plan (1) Blood in stool: (2) Constipation: Plan Discussed with Dr. Garcia. -As for GI bleeding, differential includes but is not limited to ischemic colitis, stercoral ulcer due to constipation, diverticular bleeding, AVM, PUD. He is not a good candidate for endoscopic evaluation given his acute non-GI medical issues, so at this time I would recommend conservative management. Can add IV Protonix 40 mg BID. Can consider CTA if kidneys can tolerate or NM GI bleed scan. -Monitor H/H. -Patient will need aggressive bowel regimen moving forward with multiple doses of Miralax daily, Colace, and OK to add Senna if needed. Okay to utilize an enema vs manual disimpaction given stool ball present. Supervising Physician Co-Signing Physician Notes Agree with MONA Galvan as above Abd: Soft, NT, ND, +BS Continue current therapy and supportive care Please contact our service with further questions History of Present Illness Reason for Consultation: Lower GI bleeding Attending Physician: Uriah Tam History of Present Illness Patient is an 86 yo male with extensive PMH currently hospitalized with pneumonia, acute on chronic CHF, acute COPD exacerbation, ST changes noted on EKG, and GI has been consulted for further evaluation of lower GI bleeding. Patient unclear as to date/location/provider of last colonoscopy. He began experiencing dark red blood 2 days ago. He had a CT without contrast on 10/08/22 that indicated constipation/stool ball. H/H is improved from yesterday at 9.7/29.5. BUN 74/Cr 1.92. Nephrology following. He is currently saturating at 92% on 3 L/min O2. Of note, he does take Pradaxa and Plavix. This is presently on hold. No pertinent family history. Allergies Allergy/AdvReac Type Severity Reaction Status Date / Time hydralazine AdvReac Severe anorexia,h/ Verified 08/27/22 14:25 a,nausea,pa lpitations Home Medications Medication Instructions Recorded Confirmed Type CPAP Machine #10 ea 07/13/19 09/24/22 Rx CPAP Machine #1 ea 04/24/20 09/24/22 Rx nitroglycerin 0.4 mg sublingual 0.4 mg buccal UD PRN Chest Pain 01/08/21 09/24/22 Rx tablet (Nitrostat) #25 tabs levothyroxine 100 mcg tablet 100 mcg PO QAM #90 tabs 02/11/22 09/24/22 Rx clopidogrel 75 mg tablet 75 mg PO QAM #90 tabs 05/01/22 09/24/22 Rx potassium chloride 20 mEq 20 meq PO DAILY #90 tabs 05/06/22 09/24/22 Rx tablet,extended release allopurinol 100 mg tablet 200 mg PO QAM #180 tabs 06/30/22 09/24/22 Rx amlodipine 10 mg tablet 10 mg PO QAM #90 tabs 06/30/22 09/24/22 Rx clonidine HCl 0.2 mg tablet 0.2 mg PO TID #540 tabs 06/30/22 09/24/22 Rx furosemide 40 mg tablet 120 mg PO QAM #270 tabs 06/30/22 09/24/22 Rx dabigatran etexilate 75 mg capsule 75 mg PO BID #180 caps 07/28/22 09/24/22 Rx ezetimibe 10 mg-simvastatin 20 mg 1 tab PO HS #90 tabs 07/28/22 09/24/22 Rx tablet carbidopa 25 mg-levodopa 100 mg 1 tab PO TID 90 days #270 tabs 08/27/22 09/24/22 Rx tablet Patient History Medical History Anemia Anticoagulant long-term use Carotid artery stenosis Chronic constipation Chronic kidney disease, stage 3 (moderate) Dyslipidemia Former smoker GERD (gastroesophageal reflux disease) Gout History of DVT (deep vein thrombosis) HTN (hypertension) Hypothyroid Pacemaker (01/2021) Parkinson's disease Permanent atrial fibrillation Pleural effusion Subdural hematoma (2006) Surgical History H/O vasectomy History of appendectomy History of renal stent (2006) Right History of renal stent (2008) Left Hx of tonsillectomy S/P carotid endarterectomy (1994) S/P insertion of inferior vena caval filter Family History Father Diabetes Denies family history of Ovarian cancer Prostate cancer Myocardial infarction Breast cancer Lung cancer Colorectal cancer Stroke Social History Smoking Status: Former smoker Age Started Using Tobacco: 12; Age Quit Using Tobacco: 53; packs per day: 1; Cigarettes Per Day: 20; Second Hand Exposure: No; Hx Alcohol Use: Yes Alcohol type: beer Hx Substance Use: No Preferred Language: [place] Communication Ability: Effective Visual Impairment: No Limitations Hearing Ability: Normal Cardiovascular Lab Director Required: No Beliefs That Will Affect Care: None marital status: Current Living Situation: Spouse Current Living Situation Comment: from home current occupational status: retired Feels Safe at Home: Yes Childhood Exposure to Second-Hand Smoke: Yes during the past year weight has: remained stable Physical Activity Frequency: Daily Physical Activity Frequency Comment: walks a mile every day in nice weather Seatbelt Use: always Assistive Devices: None Review of Systems Review of Systems: ROS limited by patient repeatedly falling asleep during evaluation Constitutional: no fever and no chills Respiratory: no cough and no dyspnea Cardiovascular: no chest pain Gastrointestinal: + blood in stools; no abdominal pain Physical Exam Constitutional: chronically ill appearing Respiratory: no respiratory distress Cardiovascular: Rate/Rhythm: regular rate Gastrointestinal (Abdomen): Inspection/Auscultation: abdomen normal to inspection Psychiatric: Orientation: alert Results & Data ([facility]) Vital Signs (Past 12 Hours) Vital Signs Temp Pulse Pulse Resp BP Pulse Ox O2 Del Method 10/10/22 09:28 Nasal Cannula 10/10/22 07:33 36.7 C 64 18 132/48 L 92 Nasal Cannula 10/10/22 03:08 65 26 H 90 10/10/22 00:32 61 22 92 O2 Flow Rate 10/10/22 09:28 3 10/10/22 07:33 3 10/10/22 03:08 3 10/10/22 00:32 3 PG Care Time/CCT Total # of Minutes Spent Total Time Spent with Patient: Total time spent is greater than 50% in coordination of care (as documented) at patient's floor/unit and/or counseling patient: Coding Level of Care Code 41690 INT INP/OBS CARE 3/75MIN Diagnoses Blood in stool K92.1 Constipation K59.00
[2022-10-10] MEDS: CALCIUM 600MG + VIT D 400 IU TAB PO SCH (12:04)
[2022-10-10] MEDS: POLYETHYLENE (MIRALAX) 17 GM PACK PO SCH ×2 (12:04→21:16)
[2022-10-10] MEDS: DOCUSATE SODIUM 100 MG CAP PO SCH ×2 (12:04→21:16)
[2022-10-10] MEDS: DEXTROSE 10% 1,000 ML IV SCH (12:24)
--- NOTE | 2022-10-10 15:24 | Nephrology Progress Note ---
Date of Service October 10, 2022 Assessment & Plan (1) Chronic kidney disease, stage IV (severe): (2) Fluid overload: (3) Hypertension: (4) Anemia: Plan 86-year-old male with PMH of stage IV CKD, b/l cr 2.0 to 2.2, COPD with severe pulmonary hypertension, moderate TR, A fi theb, s/p pacemaker admitted on 09/24/2022 with 3-4 days history of shortness of breath. complaints of 3 to 4 days of shortness of breath. he was admitted with possible COPD exacerbation as well as some component of worsening CHF with history of diastolic dysfunction. Has been on empiric antibiotic and steroid as well as Lasix. Renal function stable, electrolyte acceptable, overall total net negative almost 6 L, on current dose of diuretics. Respiratory distress is multifactorial including atelectasis. seems close to euvolemic. -- recommend switching Lasix to 40 mg orally twice daily. Respiratory status seems to be much better overall. -- continue Venofer IV Will follow Admission and Anticipated Discharge Date Admission Date: September 24, 2022 Subjective Vel was seen and evaluated this morning. He was lying in bed comfortably. Had more than 1500 mL net negative with IV Lasix over last 24 hours and total almost 6 L negative but he does not feel any different. continues to feel fatigued. . Renal Function relatively stable. Review of Systems Review of Systems: detailed review of system was otherwise unremarkable. Physical Exam Constitutional: WD/WN, vitals as above + ill appearing Respiratory: Auscultation: + diminished lung sounds; no crackles and no wheezes Cardiovascular: Rate/Rhythm: regular rate and regular rhythm Heart Sounds: normal S1 and normal S2 Extremities: no edema Skin: no rashes Neurologic: no focal motor deficits and not confused Psychiatric: Orientation: alert and oriented x 3 Results & Data ([facility]) Vital Signs (Past 12 Hours) Vital Signs Temp Pulse Resp BP BP Pulse Ox O2 Del Method 10/10/22 11:00 36.6 C 78 20 134/60 100 Nasal Cannula 10/10/22 09:28 Nasal Cannula 10/10/22 07:33 36.7 C 64 18 132/48 L 92 Nasal Cannula O2 Flow Rate 10/10/22 11:00 3 10/10/22 09:28 3 10/10/22 07:33 3 PG Care Time/CCT Total # of Minutes Spent Total Time Spent with Patient: Total time spent is greater than 50% in coordination of care (as documented) at patient's floor/unit and/or counseling patient: Coding Level of Care Code 02706 SUB INP/OBS CARE 350MIN Diagnoses Chronic kidney disease, stage IV (severe) N18.4 Fluid overload E87.70 Hypertension I10 Anemia D64.9
[2022-10-10] MEDS: IRON SUCROSE 200 MG in 0.9 % SODIUM CHLORIDE 100 ML IV SCH (15:35)
--- NOTE | 2022-10-10 19:05 | Nuclear Medicine Report ---
NM GI bleeding CLINICAL HISTORY: 86 years-old Male with lower GI bleeding; unable to perform endoscopy. Acute lower GI bleed TECHNIQUE: Following the intravenous administration of red cells labeled with 27.4 mCi of technetium -99m Ultratag, sequential abdominal images were obtained for 60 minutes. COMPARISON: CT abdomen and pelvis October 08, 2022 FINDINGS: There is no abnormal focus of labeled red cell accumulation or extravasation. There is expected acti vity in the blood pool. IMPRESSION: No scintigraphic evidence for active gastro intestinal bleeding. ACT 112: Negative or not required by law. The above report was generated using voice recognition software. It may contain grammatical, syntax o r spelling errors. Electronically signed by: Irivn Talley M.D. 10/10/2022 7:03 PM
--- NOTE | 2022-10-10 20:49 | Hospitalist Progress Note ---
Date of Service October 10, 2022 Assessment & Plan (1) Blood in stool: Plan: continues to have maroon-colored stools. despite such his H/H are remaining relatively stable. etiology -- diverticular? internal hemorrhoids? AVMs? ischemia? (but no abdominal pain) colon ca given mildly elevated CEA level?? HOLDing pradaxa HOLDing plavix CT a/p with diverticular disease noted no evidence of colitis lots of stool present on CT including large stool ball appreciate [facility] consult they advise either CTA abd or nuc bleeding scan unable to obtain CTA due to renal dysfunction nuc bleeding scan obtained late in the day - negative for active bleeding but could be false negative continue NPO status overnight repeat CBC in am GI is ok with use of enemas for the large stool ball if needed (2) Chronic diastolic congestive heart failure: Plan: acute/chronic HFpEF - acute component had seemingly resolved early in the stay but volume status remains clinically & radiographically overloaded. despite attempts at diuresis for 10+ days he still is not feeling any better. He again said to me "I'm still short of breath". Echo 11/12: EF 50-55%, left ventricular systolic function low normal, no regional WMA, RV mildly dilated, RV systolic function normal, severe pulmonary hypertension and moderately dilated IVC, moderate tricuspid regurg. Echo this admission largely unchanged. seen by cardiology/pulm/nephro - aggressive diuresis advised. cont lasix BID. daily BMP. suspect severe CKD is making it difficult to effect a good diuresis. (3) Pneumonia: Plan: completed 7+ days of broad-spectrum IV/PO abx including gram negative coverage with cefepime and atypical coverage with doxy. despite such he has not felt any better. CRP was high but improved with IV abx/steroids. CRP again is back to >10. legionella urine ag was negative. biofire resp panel was negative. blood/sputum cx's negative. [id number] is POSITIVE. I spoke with Dr Torres from pulmonary and despite the + test it is unlikely he has fungal pneumonia. (4) COPD (chronic obstructive pulmonary disease): Plan: with mild exacerbation early in stay now resolved s/p steroids PFTs 2021 with mild obstruction, poor bronchodilator response (5) Shortness of breath: Plan: thought to be a combination of both acute/chronic HFpEF and pneumonia along with mild COPD flare pulmonary HTN likely also contributes despite aggressive diuresis/steroids/abx he continues to feel poorly appreciate cards/pulm/nephro suggestions cont efforts at diuresis he is on chronic Pradaxa thus VTE not suspected (now on hold due to GI bleeding) see #3 above re: fungal serology + (6) ST segment changes on electrocardiogram: Plan: admission EKG - inferior ST changes but NO ischemic symptoms and troponins negative - although he mentioned vague episode of chest pain pre-hospital sometime in the last couple of weeks with that said he walks 2-3 miles EVERY DAY without limiting dyspnea, chest pain, etc. he has presumed CAD (numerous CAD risk factors, etc) but no cath to definitively diagnose such cont plavix cont simvastatin/zetia unfortunately, even if we wanted to perform stress test at this time, this is not ideal timing due to above issues (acute/chronic CHF) no ischemic symptoms while hospitalized (7) Severe pulmonary hypertension: Plan: cont night-time CPAP at discharge will assess for ambulatory O2 needs given the severity of his pul HTN (8) Permanent atrial fibrillation: Plan: S/p single-chamber pacer placement 2010. HOLD Pradaxa 75mg BID due to rectal bleeding. Is not on BB or CCB therapy at baseline. (9) Parkinson's disease: Plan: Continue Sinemet. Appreciate speech therapy eval -- > no dysphagia seen. Video swallow normal. (10) PAD (peripheral artery disease): Plan: Continue simvastatin and ezetimibe Hold plavix due to GI bleeding (11) Hypertension: Plan: Continue amlodipine, clonidine. (12) Hypothyroidism: Plan: Continue levothyroxine. TSH earlier in 2021 wnl. (13) Anemia: Plan: Mild Secondary to CKD and also acute blood loss anemia from lower Gi bleeding H/H relatively stable last 24 hours despite the bleeding cbc in am H/H tonight for stability (14) Apnea, sleep: Plan: CPAP at night. (15) Chronic kidney disease, stage IV (severe): Plan: baseline CrCl 20s baseline Cr 1.8 Cr again stable today BMP in am (16) NSVT (nonsustained ventricular tachycardia): Plan: brief episode (<10 beats) several days ago -- no symptoms from such then did not have any additional episodes tele stopped recent echo with preserved EF and no LV wall motion abnormalities K wnl Mag wnl (17) Anorexia: Plan: despite Rx of pneumonia no change in appetite rechecked crp -- remains high, etiology uncertain ESR wnl now having maroon-colored stools -- GI tract malignancy?? other? poor candidate for endoscopic evaluation cont boost BID cont MVI Plan DVT proph - pradaxa typically but holding due to GI bleeding extensively updated pt's this week in person and by phone he may need palliative care if he continues to decline Admission and Anticipated Discharge Date Admission Date: September 24, 2022 Subjective patient continues to state "I don't feel better; I don't feel any different" he continues with small amounts of maroon-colored stool; the stool is not formed; the stools are small he denies rectal pain or abd pain no nausea despite his ongoing complaints of dyspnea he was laying completely flat in bed during the visit he is irritated that he is still in the hospital and still not feeling well I tried to engage him about what he wants to do moving forward if he doesn't feel better but was unable to get a consistent answer Review of Systems Review of Systems: gen - fatigue; no fever cv - no orthopnea, no PND, no chest pain pulm - no cough; ongoing dyspnea GI - no pain, no vomiting - mack in place Physical Exam Physical Exam: gen - NAD, laying flat in bed comfortably mouth - copious thrush plaques oral cavity now resolved neck - no JVD when I sat him up at 30 degrees heart - irregular, s1 s2, 2/6 systolic murmur lungs - mild rales bases unchanged, no wheezing abd - soft NT ND BS+ ext - trace edema b/l, pulses 2+ b/l psych - a/o x 3; affect restricted Results & Data Results & Data ([facility]) Vital Signs (Past 12 Hours) Vital Signs Temp Pulse Pulse Resp BP Pulse Ox O2 Del Method 10/10/22 16:31 36.6 C 61 18 127/53 L 93 Nasal Cannula 10/10/22 15:39 36.4 C L 60 16 133/54 L 94 Nasal Cannula 10/10/22 11:00 36.6 C 78 20 134/60 100 Nasal Cannula 10/10/22 09:28 Nasal Cannula O2 Flow Rate 10/10/22 16:31 3 10/10/22 15:39 3 10/10/22 11:00 3 10/10/22 09:28 3 Laboratory Results Laboratory Results - last 24 hr 10/09/22 10/10/22 10/10/22 21:28 00:12 05:42 WBC RBC Hgb Hct MCV MCH MCHC RDW Std Deviation RDW Coeff of Italo Plt Count MPV Absolute Nucleated RBC Nucleated RBC % (auto) Sodium Potassium Chloride Carbon Dioxide Anion Gap BUN Creatinine Est Cr Clr Drug Dosing Est GFR ( Amer) Est GFR (Non-Af Amer) BUN/Creatinine Ratio Glucose POC Glucose 84 95 72 Calcium 10/10/22 10/10/22 10/10/22 08:17 08:17 08:17 WBC 17.19 H RBC 3.16 L Hgb 9.7 L Hct 29.5 L MCV 93.4 MCH 30.7 MCHC 32.9 RDW Std Deviation 52.2 H RDW Coeff of Italo 16.0 H Plt Count 219 MPV 13.0 H Absolute Nucleated RBC 0.02 H Nucleated RBC % (auto) 0.1 Sodium 146 H Potassium 3.6 Chloride 113 H Carbon Dioxide 25 Anion Gap 8 BUN 74 H Creatinine Cancelled 1.92 H Est Cr Clr Drug Dosing Cancelled 25.7 Est GFR ( Amer) Cancelled 35.2 Est GFR (Non-Af Amer) Cancelled 30.4 BUN/Creatinine Ratio 38.5 H Glucose 58 L POC Glucose Calcium 8.8 10/10/22 10/10/22 10/10/22 10:00 10:02 10:20 WBC RBC Hgb Hct MCV MCH MCHC RDW Std Deviation RDW Coeff of Italo Plt Count MPV Absolute Nucleated RBC Nucleated RBC % (auto) Sodium Potassium Chloride Carbon Dioxide Anion Gap BUN Creatinine Est Cr Clr Drug Dosing Est GFR ( Amer) Est GFR (Non-Af Amer) BUN/Creatinine Ratio Glucose POC Glucose 61 L* 61 L* 133 H Calcium 10/10/22 10/10/22 11:50 18:54 WBC RBC Hgb Hct MCV MCH MCHC RDW Std Deviation RDW Coeff of Italo Plt Count MPV Absolute Nucleated RBC Nucleated RBC % (auto) Sodium Potassium Chloride Carbon Dioxide Anion Gap BUN Creatinine Est Cr Clr Drug Dosing Est GFR ( Amer) Est GFR (Non-Af Amer) BUN/Creatinine Ratio Glucose POC Glucose 95 94 Calcium PG Care Time/CCT Total # of Minutes Spent Total Time Spent with Patient: Total time spent is greater than 50% in coordination of care (as documented) at patient's floor/unit and/or counseling patient: Coding Level of Care Code 80474 SUB INP/OBS CARE 350MIN Diagnoses Blood in stool K92.1 Chronic diastolic congestive heart failure I50.32 Pneumonia J18.9 COPD (chronic obstructive pulmonary disease) J44.[address] of [address] segment changes on electrocardiogram R94.31 Severe pulmonary hypertension I27.20 Permanent atrial fibrillation I48.21 Parkinson's disease G20 PAD (peripheral artery disease) I73.9 Hypertension I10 Hypothyroidism E03.9 Anemia D64.9 Apnea, sleep G47.33 Sleep apnea type: obstructive Chronic kidney disease, stage IV (severe) N18.4 NSVT (nonsustained ventricular tachycardia) I47.29 Anorexia R63.0 (1) Apnea, sleep Sleep apnea type: obstructive Qualified Code(s): G47.33 - Obstructive sleep apnea (adult) (pediatric)
[2022-10-10] MEDS: EZETIMIBE/SIMVASTATIN 10/20 TAB PO SCH (21:16)
[2022-10-10] MEDS: PANTOprazole 40 MG in SYRINGE 0 ML IV SCH (21:17)
[2022-10-11] MEDS: LEVOTHYROXINE SODIUM 100 MCG TABLET PO SCH (06:38)
[2022-10-11 07:22] LABS: Hematocrit (blood only) 28.5 % (40.1-51.0); Hemoglobin 9.5 g/dl (14.0-18.0); Mean Corpuscular Hemoglobin 30.7 pg (25.0-34.0); Mean Corpuscular Hgb Conc 33.3 g/dL (32.0-36.0); Mean Corpuscular Volume 92.2 fL (80.0-100.0); Mean Platelet Volume 12.6 fL (9.4-12.4); Nucleated RBC # (auto) 0.05 K/uL (0-0); Nucleated RBC % (auto) 0.4 %; Platelet Count 207 K/uL (130-400); RDW Coefficient of Variation 16.7 % (11.5-14.5); RDW Standard Deviation 51.7 fL (36.4-46.3); Red Blood Count 3.09 M/uL (4.63-6.08); White Blood Count 13.11 K/ul (4.8-10.8)
[2022-10-11 08:04] LABS: Calcium 8.6 mg/dl (8.5-10.1); Potassium 3.9 mmol/L (3.5-5.1)
[2022-10-11 08:10] LABS: BUN Creatinine Ratio 37.6 (10-20); Est GFR (African American) 36.6 ml/min; Est GFR (Non-African American) 31.6 ml/min
[2022-10-11] MEDS: CEROVITE ADV FORMULA TAB PO SCH (08:26)
[2022-10-11] MEDS: guaiFENesin 600 MG TABCR PO SCH ×2 (08:26→21:44)
[2022-10-11] MEDS: POLYETHYLENE (MIRALAX) 17 GM PACK PO SCH ×2 (08:27→21:44)
[2022-10-11] MEDS: CARBIDOPA/LEVODOPA 25/100MG TAB PO SCH ×3 (08:27→21:43)
[2022-10-11] MEDS: DOCUSATE SODIUM 100 MG CAP PO SCH ×2 (08:27→21:44)
[2022-10-11] MEDS: SENNA 8.6 MG TAB PO SCH (08:27)
[2022-10-11] MEDS: amLODIPine BESYLATE 5 MG TAB PO SCH (08:27)
[2022-10-11] MEDS: PANTOprazole 40 MG in SYRINGE 0 ML IV SCH ×2 (08:28→21:43)
[2022-10-11] MEDS: cloNIDine HCL 0.1 MG TAB PO SCH ×3 (08:28→21:43)
[2022-10-11] MEDS: NYSTATIN SUSP 500,000 U/5 ML UDC PO SCH ×4 (08:28→21:43)
[2022-10-11] MEDS: POTASSIUM CHLORIDE CRTAB 20 MEQ TABCR PO SCH ×3 (08:31→21:48)
[2022-10-11] MEDS: FUROSEMIDE 40 MG/4 ML VIAL IV SCH (08:31)
[2022-10-11] MEDS: allopurinoL 100 MG TAB PO SCH (08:54)
--- NOTE | 2022-10-11 10:49 | Nephrology Progress Note ---
Date of Service October 11, 2022 Assessment & Plan (1) Chronic kidney disease, stage IV (severe): (2) Fluid overload: (3) Hypertension: (4) Anemia: Plan 86-year-old male with PMH of stage IV CKD, b/l cr 2.0 to 2.2, COPD with severe pulmonary hypertension, moderate TR, A fi theb, s/p pacemaker admitted on 09/24/2022 with 3-4 days history of shortness of breath. complaints of 3 to 4 days of shortness of breath. he was admitted with possible COPD exacerbation as well as some component of worsening CHF with history of diastolic dysfunction. Has been on empiric antibiotic and steroid as well as Lasix. Renal function stable, electrolyte acceptable, overall total net negative almost 6 L, on current dose of diuretics. Respiratory distress is multifactorial including atelectasis. -- change to Lasix to 40 mg orally twice daily. Respiratory status seems to be much better overall. -- continue to monitor labs Will follow Admission and Anticipated Discharge Date Admission Date: September 24, 2022 Scott Vel was seen and evaluated this morning. He was lying in bed comfortably. Had more than 2000 mL net negative with IV Lasix over last 24 hours and total >7 L negative but he does not feel any different. continues to feel fatigued. . Renal Function relatively stable. Review of Systems Review of Systems: detailed review of system was otherwise unremarkable. Physical Exam Constitutional: WD/WN, vitals as above + ill appearing Respiratory: Auscultation: + diminished lung sounds; no crackles and no whee zes Cardiovascular: Rate/Rhythm: regular rate and regular rhythm Heart Sounds: normal S1 and normal S2 Extremities: no edema Skin: no rashes Neurologic: no focal motor deficits and not confused Psychiatric: Orientation: alert and oriented x 3 Results & Data ([facility]) Vital Signs (Past 12 Hours) Vital Signs Temp Pulse Pulse Resp BP Pulse Ox O2 Del Method 10/11/22 08:19 Nasal Cannula 10/11/22 07:49 36.4 C L 68 14 142/66 H 97 Nasal Cannula 10/11/22 01:34 61 15 90 O2 Flow Rate 10/11/22 08:19 3 10/11/22 07:49 2 10/11/22 01:34 2 PG Care Time/CCT Total # of Minutes Spent Total Time Spent with Patient: Total time spent is greater than 50% in coordination of care (as documented) at patient's floor/unit and/or counseling patient: Coding Level of Care Code 05721 SUB INP/OBS CARE Diagnoses Chronic kidney disease, stage IV (severe) N18.4 Fluid overload E87.70 Hypertension I10 Anemia D64.9
[2022-10-11] MEDS ORDERED: MINERAL OIL ENEMA 133 ML BTL PR ONE (11:00)
[2022-10-11] MEDS: DEXTROSE 10% 1,000 ML IV SCH (11:25)
--- NOTE | 2022-10-11 12:01 | Hospitalist Progress Note ---
Date of Service October 11, 2022 Assessment & Plan (1) Blood in stool: Plan: continues to have maroon-colored stools although the amounts are small and his H/H remain stable over the last 48 hours. etiology -- diverticular? internal hemorrhoids? AVMs? ischemia? (but no abdominal pain) colon ca given mildly elevated CEA level?? HOLDing pradaxa and plavix CT a/p with diverticular disease noted no evidence of colitis lots of stool present on CT including large stool ball nuclear bleeding scan 10/10/22 was negative for active bleeding but could be false negative start clears today the stools he is passing are small and loose; suspect this is overflow stooling around the large stool ball will give mineral oil enema x 1 today for the large ball/impaction ' CBC am (2) Chronic diastolic congestive heart failure: Plan: acute/chronic HFpEF - acute component had seemingly resolved early in the stay but volume status remains clinically & radiographically overloaded. despite attempts at diuresis for 14+ days he still is not feeling any better oddly. Echo 11/12: EF 50-55%, left ventricular systolic function low normal, no regional WMA, RV mildly dilated, RV systolic function normal, severe pulmonary hypertension and moderately dilated IVC, moderate tricuspid regurg. Echo this admission largely unchanged. seen by cardiology/pulm/nephro - aggressive diuresis advised. Na level is high today at 146. lungs are clear. he is laying completely flat w/o difficulty. nephrology stopped IV lasix - change to PO lasix 40mg BID - agree w/ such. BMP am suspect severe CKD made it difficult to effect a good diuresis. (3) Pneumonia: Plan: completed 7+ days of broad-spectrum IV/PO abx including gram negative coverage with cefepime and atypical coverage with doxy. despite such he has not felt any better. CRP was high but improved with IV abx/steroids. CRP again is back to >10. legionella urine ag was negative. biofire resp panel was negative. blood/sputum cx's negative. [id number] was POSITIVE. I spoke with Dr Torres from pulmonary and despite the + test it is unlikely he has fungal pneumonia. (4) COPD (chronic obstructive pulmonary disease): Plan: with mild exacerbation early in stay now resolved s/p steroids PFTs 2021 with mild obstruction, poor bronchodilator response (5) Shortness of breath: Plan: thought to be a combination of both acute/chronic HFpEF and pneumonia along with mild COPD flare pulmonary HTN likely also contributes despite aggressive diuresis/steroids/abx he continues to feel poorly from pulmonary standpoint appreciate cards/pulm/nephro suggestions cont efforts at diuresis he is on chronic Pradaxa thus VTE not suspected (now on hold due to GI bleeding) see #3 above re: fungal serology + (6) ST segment changes on electrocardiogram: Plan: admission EKG - inferior ST changes but NO ischemic symptoms and troponins negative - although he mentioned vague episode of chest pain pre-hospital sometime in the last couple of weeks with that said he walks 2-3 miles EVERY DAY without limiting dyspnea, chest pain, etc. he has presumed CAD (numerous CAD risk factors, etc) but no cath to definitively diagnose such cont plavix cont simvastatin/zetia unfortunately, even if we wanted to perform stress test at this time, this is not ideal timing due to above issues (acute/chronic CHF) no ischemic symptoms while hospitalized (7) Severe pulmonary hypertension: Plan: cont night-time CPAP at discharge will assess for ambulatory O2 needs given the severity of his pul HTN (8) Permanent atrial fibrillation: Plan: S/p single-chamber pacer placement 2010. HOLD Pradaxa 75mg BID due to rectal bleeding. Is not on BB or CCB therapy at baseline. (9) Parkinson's disease: Plan: Continue Sinemet. Appreciate speech therapy eval -- > no dysphagia seen. Video swallow normal. (10) PAD (peripheral artery disease): Plan: Continue simvastatin and ezetimibe Hold plavix due to GI bleeding (11) Hypertension: Plan: Continue amlodipine, clonidine. (12) Hypothyroidism: Plan: Continue levothyroxine. TSH earlier in 2021 wnl. (13) Anemia: Plan: 2nd to CKD, acute blood loss anemia from lower GI bleeding, etc. H/H stable again today cbc in am (14) Apnea, sleep: Plan: CPAP at night. (15) Chronic kidney disease, stage IV (severe): Plan: baseline CrCl 20s baseline Cr 1.8 Cr again stable today BMP in am (16) NSVT (nonsustained ventricular tachycardia): Plan: brief episode (<10 beats) several days ago -- no symptoms from such then did not have any additional episodes tele stopped recent echo with preserved EF and no LV wall motion abnormalities K wnl Mag wnl (17) Anorexia: Plan: despite Rx of pneumonia no change in appetite rechecked crp -- remains high, etiology uncertain ESR wnl now having maroon-colored stools -- GI tract malignancy?? other? poor candidate for endoscopic evaluation cont boost BID cont MVI start clear liquids today Plan DVT proph - pradaxa typically but holding due to GI bleeding Admission and Anticipated Discharge Date Admission Date: September 24, 2022 Subjective states "I'm maybe a little better" confirms his breathing is comfortable laying flat today is willing to try clears again staff report some minor maroon-colored stool with a small BM this am we performed an enema and he had a moderate amount of stool with this still denies abd pain Review of Systems Review of Systems: gen - weak & fatigued cv - no orthopnea, no cp pulm - no cough, still with dyspnea but no worse than previous GI - no N/V/pain; no bright red blood per rectum Physical Exam Physical Exam: gen - NAD, laying flat in bed comfortably, looks the same as all previous visits mouth - thrush resolved; MM dry neck - no JVD heart - irregular, s1 s2, 2/6 systolic murmur lungs - scant rales bases, good airation, no wheezing abd - soft NT ND BS+ ext - no edema b/l, pulses 2+ b/l psych - a/o x 3; despondent Results & Data Results & Data ([facility]) Vital Signs (Past 12 Hours) Vital Signs Temp Pulse Pulse Resp BP Pulse Ox O2 Del Method 10/11/22 11:42 36.8 C 61 14 125/65 100 Nasal Cannula 10/11/22 08:19 Nasal Cannula 10/11/22 07:49 36.4 C L 68 14 142/66 H 97 Nasal Cannula 10/11/22 01:34 61 15 90 O2 Flow Rate 10/11/22 11:42 2 10/11/22 08:19 3 10/11/22 07:49 2 10/11/22 01:34 2 Laboratory Results Laboratory Results - last 24 hr 10/10/22 10/11/22 10/11/22 18:54 00:32 06:15 WBC RBC Hgb Hct MCV MCH MCHC RDW Std Deviation RDW Coeff of Italo Plt Count MPV Absolute Nucleated RBC Nucleated RBC % (auto) Sodium Potassium Chloride Carbon Dioxide Anion Gap BUN Creatinine Est Cr Clr Drug Dosing Est GFR ( Amer) Est GFR (Non-Af Amer) BUN/Creatinine Ratio Glucose POC Glucose 94 124 H 143 H Calcium 10/11/22 10/11/22 10/11/22 06:46 06:46 11:49 WBC 13.11 H RBC 3.09 L Hgb 9.5 L Hct 28.5 L MCV 92.2 MCH 30.7 MCHC 33.3 RDW Std Deviation 51.7 H RDW Coeff of Italo 16.7 H Plt Count 207 MPV 12.6 H Absolute Nucleated RBC 0.05 H Nucleated RBC % (auto) 0.4 Sodium 146 H Potassium 3.9 Chloride 112 H Carbon Dioxide 26 Anion Gap 8 BUN 70 H Creatinine 1.86 H Est Cr Clr Drug Dosing 26.0 Est GFR ( Amer) 36.6 Est GFR (Non-Af Amer) 31.6 BUN/Creatinine Ratio 37.6 H Glucose 141 H POC Glucose 177 H Calcium 8.6 PG Care Time/CCT Total # of Minutes Spent Total Time Spent with Patient: Total time spent is greater than 50% in coordination of care (as documented) at patient's floor/unit and/or counseling patient: Coding Level of Care Code 73093 SUB INP/OBS CARE 2/35MIN Diagnoses Blood in stool K92.1 Chronic diastolic congestive heart failure I50.32 Pneumonia J18.9 COPD (chronic obstructive pulmonary disease) J44.[address] of [address] segment changes on electrocardiogram R94.31 Severe pulmonary hypertension I27.20 Permanent atrial fibrillation I48.21 Parkinson's disease G20 PAD (peripheral artery disease) I73.9 Hypertension I10 Hypothyroidism E03.9 Anemia D64.9 Apnea, sleep G47.33 Sleep apnea type: obstructive Chronic kidney disease, stage IV (severe) N18.4 NSVT (nonsustained ventricular tachycardia) I47.29 Anorexia R63.0 (1) Apnea, sleep Sleep apnea type: obstructive Qualified Code(s): G47.33 - Obstructive sleep apnea (adult) (pediatric)
[2022-10-11] MEDS: CALCIUM 600MG + VIT D 400 IU TAB PO SCH (12:25)
[2022-10-11] MEDS: IRON SUCROSE 200 MG in 0.9 % SODIUM CHLORIDE 100 ML IV SCH (15:12)
[2022-10-11] MEDS: FUROSEMIDE 40 MG TAB PO SCH (17:31)
[2022-10-11] MEDS: EZETIMIBE/SIMVASTATIN 10/20 TAB PO SCH (21:43)
[2022-10-12] MEDS: LEVOTHYROXINE SODIUM 100 MCG TABLET PO SCH (05:42)
[2022-10-12 07:09] LABS: Hematocrit (blood only) 26.9 % (40.1-51.0); Hemoglobin 8.9 g/dl (14.0-18.0); Mean Corpuscular Hemoglobin 31.2 pg (25.0-34.0); Mean Corpuscular Hgb Conc 33.1 g/dL (32.0-36.0); Mean Corpuscular Volume 94.4 fL (80.0-100.0); Nucleated RBC # (auto) 0.03 K/uL (0-0); Nucleated RBC % (auto) 0.3 %; Platelet Count 191 K/uL (130-400); RDW Coefficient of Variation 16.9 % (11.5-14.5); RDW Standard Deviation 53.2 fL (36.4-46.3); Red Blood Count 2.85 M/uL (4.63-6.08)
[2022-10-12 07:33] LABS: Calcium 8.2 mg/dl (8.5-10.1); Potassium 4.2 mmol/L (3.5-5.1)
[2022-10-12 07:39] LABS: Creatinine Clr Calc Pharmacy 27.1 ml/min; Est GFR (African American) 38.6 ml/min; Est GFR (Non-African American) 33.3 ml/min
[2022-10-12] MEDS: SENNA 8.6 MG TAB PO SCH (09:17)
[2022-10-12] MEDS: PANTOprazole 40 MG in SYRINGE 0 ML IV SCH ×2 (09:17→21:24)
[2022-10-12] MEDS: POLYETHYLENE (MIRALAX) 17 GM PACK PO SCH ×2 (09:18→21:24)
[2022-10-12] MEDS: CEROVITE ADV FORMULA TAB PO SCH (09:18)
[2022-10-12] MEDS: CARBIDOPA/LEVODOPA 25/100MG TAB PO SCH ×3 (09:18→21:23)
[2022-10-12] MEDS: amLODIPine BESYLATE 5 MG TAB PO SCH (09:18)
[2022-10-12] MEDS: allopurinoL 100 MG TAB PO SCH (09:18)
[2022-10-12] MEDS: guaiFENesin 600 MG TABCR PO SCH ×2 (09:18→21:22)
[2022-10-12] MEDS: cloNIDine HCL 0.1 MG TAB PO SCH ×3 (09:19→21:23)
[2022-10-12] MEDS: NYSTATIN SUSP 500,000 U/5 ML UDC PO SCH ×4 (09:19→21:25)
[2022-10-12] MEDS: FUROSEMIDE 40 MG TAB PO SCH ×2 (09:19→16:59)
[2022-10-12] MEDS: DOCUSATE SODIUM 100 MG CAP PO SCH ×2 (09:19→21:24)
[2022-10-12] MEDS: POTASSIUM CHLORIDE CRTAB 20 MEQ TABCR PO SCH ×3 (09:23→21:28)
--- NOTE | 2022-10-12 10:49 | Nephrology Progress Note ---
Date of Service October 12, 2022 Assessment & Plan (1) Chronic kidney disease, stage IV (severe): (2) Fluid overload: (3) Hypertension: (4) Anemia: Plan 86-year-old male with PMH of stage IV CKD, b/l cr 2.0 to 2.2, COPD with severe pulmonary hypertension, moderate TR, A fi theb, s/p pacemaker admitted on 09/24/2022 with 3-4 days history of shortness of breath. complaints of 3 to 4 days of shortness of breath. he was admitted with possible COPD exacerbation as well as some component of worsening CHF with history of diastolic dysfunction. Has been on empiric antibiotic and steroid as well as Lasix. Renal function stable, electrolyte acceptable, overall total net negative almost 6 L, on current dose of diuretics. Respiratory distress is multifactorial including atelectasis. -- suggest changing Lasix to 40 mg once daily. Respiratory status seems to be much better overall. -- continue to monitor labs Will sign off, please contact with any further concerns. Admission and Anticipated Discharge Date Admission Date: September 24, 2022 Subjective Vel was seen and evaluated this morning. He was lying in bed comfortably. Had more than 2000 mL net negative with IV Lasix over last 24 hours and total >7 L negative and feels slightly better. . Renal Function relatively stable. Review of Systems Review of Systems: detailed review of system was otherwise unremarkable. Physical Exam Constitutional: WD/WN, vitals as above + ill appearing Respiratory: Auscultation: + diminished lung sounds; no crackles and no wheezes Cardiovascular: Rate/Rhythm: regular rate and regular rhythm Heart Sounds: normal S1 and normal S2 Extremities: no edema Skin: no rashes Neurologic: no focal motor deficits and not confused Psychiatric: Orientation: alert and oriented x 3 Results & Data ([facility]) Vital Signs (Past 12 Hours) Vital Signs Temp Pulse Pulse Resp BP Pulse Ox O2 Del Method 10/12/22 10:35 Nasal Cannula 10/12/22 07:24 36.7 C 65 16 144/64 H 97 Nasal Cannula 10/12/22 00:59 60 19 98 O2 Flow Rate 10/12/22 10:35 4 10/12/22 07:24 4 10/12/22 00:59 4 PG Care Time/CCT Total # of Minutes Spent Total Time Spent with Patient: Total time spent is greater than 50% in coordination of care (as documented) at patient's floor/unit and/or counseling patient: Coding Level of Care Code 40975 SUB INP/OBS CARE MIN Diagnoses Chronic kidney disease, stage IV (severe) N18.4 Fluid overload E87.70 Hypertension I10 Anemia D64.9
--- NOTE | 2022-10-12 13:11 | Hospitalist Progress Note ---
Date of Service October 12, 2022 Assessment & Plan (1) Failure to thrive in adult: Plan: present this ENTIRE hospitalization despite maximal medical efforts to treat pulmonary issues, GI issues, etc. has had consultation with cardiology, pulmonary, nephrology, and gas troenterology. despite such he has had little to no improvement on a global basis. discussed in detail palliative care/hospice today with pt & his /son. discussed consulting palliative care team tomorrow. patient and his didn't seem to fully understand the gravity of his current health and that there does not seem to be any easy fixes to his current problems. patient had unrealistic goals, asking about his candidacy for [facility], and wanting to eat normally (despite weeks-months of not eating). discussed that he had had 7+ days of high-dose steroids and even with such his anorexia continued on. son appeared to have a very good understanding of his dad's situation. will consult palliative care in am. encouraged Pt and his family to reach out to [facility] where they attend for spiritual support. (2) Severe protein-calorie malnutrition: Plan: present for weeks-months his weight today is 145 pounds, down from 170+ pounds during this stay some of this was fluid of course, but he has not eaten the entire stay and much of this weight loss is from lack of nutrition (3) Anorexia: Plan: despite Rx of pneumonia no change in appetite rechecked crp -- remains high, etiology uncertain ESR wnl now having maroon-colored stools -- GI tract malignancy given elevated CEA?? other? poor candidate for endoscopic evaluation cont boost BID cont MVI allow full liquids as tolerated (4) Blood in stool: Plan: continues to have maroon-colored stools although the amounts are small and his H/H remained relatively stable over the last 48 hours. etiology -- diverticular? internal hemorrhoids? AVMs? ischemia? (but no abdominal pain) colon ca given mildly elevated CEA level?? cont to hold pradaxa and plavix CT a/p with diverticular disease noted no evidence of colitis lots of stool present on CT including large stool ball nuclear bleeding scan 10/10/22 was negative for active bleeding but could be false negative allow full liquids the stools he is passing are small and loose; suspect this is overflow stooling around the large stool ball he has had success in last 24 hours getting out some of the stool ball present (5) Chronic diastolic congestive heart failure: Plan: acute/chronic HFpEF - acute component had seemingly resolved early in the stay but volume status remained clinically & radiographically overloaded despite aggressive diuresis. despite attempts at diuresis for nearly 3 weeks he reports every day his breathing is still short and he "feels no different." Echo 11/12: EF 50-55%, left ventricular systolic function low normal, no regional WMA, RV mildly dilated, RV systolic function normal, severe pulmonary hypertension and moderately dilated IVC, moderate tricuspid regurg. Echo this admission largely unchanged. seen by cardiology/pulm/nephro - aggressive diuresis advised. Na level kortney to 146 two days ago and his weight dropped into the mid 140s, well below his dry weight (high 150s) lungs are clear. he is laying completely flat w/o difficulty. nephrology stopped IV lasix - changed to PO lasix 40mg BID - agree w/ such. BMP am suspect severe CKD made it difficult to effect a good diuresis during this prolonged hospitalization. (6) Pneumonia: Plan: completed 7+ days of broad-spectrum IV/PO abx including gram negative coverage with cefepime and atypical coverage with doxy. despite such he has not felt any better. CRP was high but improved with IV abx/steroids. CRP again is back to >10. legionella urine ag was negative. biofire resp panel was negative. blood/sputum cx's negative. [id number] was POSITIVE. I spoke with Dr Torres from pulmonary and despite the + test it is unlikely he has fungal pneumonia. (7) COPD (chronic obstructive pulmonary disease): Plan: with mild exacerbation early in stay now resolved s/p steroids ; no wheezing in 2+ weeks PFTs 2021 with mild obstruction, poor bronchodilator response (8) Shortness of breath: Plan: thought to be a combination of both acute/chronic HFpEF and pneumonia along with mild COPD flare pulmonary HTN likely also contributes despite aggressive diuresis/steroids/abx he continues to feel poorly from pulmonary standpoint appreciate cards/pulm/nephro suggestions he is on chronic Pradaxa thus VTE not suspected (although now on hold due to GI bleeding) see #3 above re: fungal serology + (9) ST segment changes on electrocardiogram: Plan: admission EKG - inferior ST changes but NO ischemic symptoms and troponins negative - although he mentioned vague episode of chest pain pre-hospital sometime in the last couple of weeks with that said he walks 2-3 miles EVERY DAY without limiting dyspnea, chest pain, etc. he has presumed CAD (numerous CAD risk factors, etc) but no cath to definitively diagnose such cont plavix cont simvastatin/zetia unfortunately, even if we wanted to perform stress test, he is not a candidate at this time for such no ischemic symptoms while hospitalized (10) Severe pulmonary hypertension: Plan: cont night-time CPAP (11) Permanent atrial fibrillation: Plan: S/p single-chamber pacer placement 2010. HOLD Pradaxa 75mg BID due to rectal bleeding. Is not on BB or CCB therapy at baseline. (12) Parkinson's disease: Plan: Continue Sinemet. Appreciate speech therapy eval -- > no dysphagia seen. Video swallow normal. (13) PAD (peripheral artery disease): Plan: Continue simvastatin and ezetimibe Hold plavix due to GI bleeding (14) Hypertension: Plan: Continue amlodipine, clonidine. (15) Hypothyroidism: Plan: Continue levothyroxine. TSH earlier in 2021 wnl. (16) Anemia: Plan: 2nd to CKD, acute blood loss anemia from lower GI bleeding, etc. H/H modestly worse today cbc in am (17) Apnea, sleep: Plan: CPAP at night. (18) Chronic kidney disease, stage IV (severe): Plan: baseline CrCl 20s baseline Cr 1.8 Cr again stable today BMP in am (19) NSVT (nonsustained ventricular tachycardia): Plan: brief episode (<10 beats) several days ago -- no symptoms from such then did not have any additional episodes tele stopped recent echo with preserved EF and no LV wall motion abnormalities K wnl Mag wnl Plan DVT proph - pradaxa typically used, but holding due to GI bleeding see subjective portion of note re: details of very lengthy family meeting remains DNR/DNI poor prognosis - strongly advise transition to palliative care and enrollment in hospice Admission and Anticipated Discharge Date Admission Date: September 24, 2022 Subjective 2 visits to pt's bedside today first was during AM rounds -- like all other visits stated "I don't feel any better -- I'm still short of breath" staff report ongoing small amounts of maroon-colored blood per rectum; nothing bright red he denies any abdominal pain NO appetite - minimal consumption of clear liquids at breakfast 2nd visit was later in the day , son were present for a visit apparently the family brought a milkshake which he did drink most of it (10 oz or less) we had a LENGTHY discussion about his near 3-week hospital stay and that he is making little progress on global scale severe failure to thrive + malnutrition/severe anorexia + ongoing complaints of dyspnea despite near 3 weeks of diuresis at one point he asked "what do I need to do to get [facility]?" we discussed palliative care/hospice in detail patient stated his goal was "to get better"; he clarified that this would mean "I could sit up in bed and eat well" we discussed that he has not eaten well in weeks to months as he was not eating at home for a long time prior to this hospitalization explained he would need EGD/colonoscopy to determine if there was cancer or something else driving his anorexia he did have a good BM this am per staff Review of Systems Review of Systems: gen - fatigued, tired, anorexia cv - no orthopnea; no chest pain pulm - ongoing dyspnea even at rest; no cough GI - no pain, no nausea, no emesis; ongoing blood per rectum (maroon in color) - mack in place w/ no issues Physical Exam Physical Exam: gen - NAD, laying flat in bed comfortably, looks the same as yesterday mouth - MM dry neck - no JVD when I sat him up heart - irregular, s1 s2, 2/6 systolic murmur lungs - scant rales bases, good airation, no wheezing, mildly decreased BS right base abd - soft NT ND BS+ ext - no edema b/l, pulses 2+ b/l psych - a/o x 3; despondent Results & Data Results & Data ([facility]) Vital Signs (Past 12 Hours) Vital Signs Temp Pulse Resp BP Pulse Ox O2 Del Method O2 Flow Rate 10/12/22 10:35 Nasal Cannula 4 10/12/22 07:24 36.7 C 65 16 144/64 H 97 Nasal Cannula 4 Laboratory Results Laboratory Results - last 24 hr 10/11/22 10/11/22 10/12/22 16:57 21:00 06:19 WBC 11.80 H RBC 2.85 L Hgb 8.9 L Hct 26.9 L MCV 94.4 MCH 31.2 MCHC 33.1 RDW Std Deviation 53.2 H RDW Coeff of Italo 16.9 H Plt Count 191 MPV 13.0 H Absolute Nucleated RBC 0.03 H Nucleated RBC % (auto) 0.3 Sodium Potassium Chloride Carbon Dioxide Anion Gap BUN Creatinine Est Cr Clr Drug Dosing Est GFR ( Amer) Est GFR (Non-Af Amer) BUN/Creatinine Ratio Glucose POC Glucose 151 H 163 H Calcium 10/12/22 10/12/22 10/12/22 06:19 07:53 11:46 WBC RBC Hgb Hct MCV MCH MCHC RDW Std Deviation RDW Coeff of Italo Plt Count MPV Absolute Nucleated RBC Nucleated RBC % (auto) Sodium 144 Potassium 4.2 Chloride 110 H Carbon Dioxide 28 Anion Gap 6 BUN 57 H Creatinine 1.78 H Est Cr Clr Drug Dosing 27.1 Est GFR ( Amer) 38.6 Est GFR (Non-Af Amer) 33.3 BUN/Creatinine Ratio 32.0 H Glucose 144 H POC Glucose 150 H 172 H Calcium 8.2 L PG Care Time/CCT Total # of Minutes Spent Total Time Spent with Patient: Total time spent is greater than 50% in coordination of care (as documented) at patient's floor/unit and/or counseling patient: Coding Level of Care Code 82047 SUB INP/OBS CARE 3/50MIN Diagnoses Failure to thrive in adult R62.7 Severe protein-calorie malnutrition E43 Anorexia R63.0 Blood in stool K92.1 Chronic diastolic congestive heart failure I50.32 Pneumonia J18.9 COPD (chronic obstructive pulmonary disease) J44.[address] segment changes on electrocardiogram R94.31 Severe pulmonary hypertension I27.20 Permanent atrial fibrillation I48.21 Parkinson's disease G20 PAD (peripheral artery disease) I73.9 Hypertension I10 Hypothyroidism E03.9 Anemia D64.9 Apnea, sleep G47.33 Sleep apnea type: obstructive Chronic kidney disease, stage IV (severe) N18.4 NSVT (nonsustained ventricular tachycardia) I47.29 (1) Apnea, sleep Sleep apnea type: obstructive Qualified Code(s): G47.33 - Obstructive sleep apnea (adult) (pediatric)
[2022-10-12] MEDS: DEXTROSE 10% 1,000 ML IV SCH (13:41)
[2022-10-12] MEDS: CALCIUM 600MG + VIT D 400 IU TAB PO SCH (13:42)
[2022-10-12] MEDS: ACETAMINOPHEN 325 MG TAB PO PRN (19:31)
[2022-10-12] MEDS: EZETIMIBE/SIMVASTATIN 10/20 TAB PO SCH (21:24)
[2022-10-12] MEDS: LIDOCAINE 5% 1 PATCH TD SCH (21:27)
[2022-10-13] MEDS ORDERED: MELATONIN 3 MG TAB PO ONE ×2 (00:58→01:20)
[2022-10-13] MEDS: ACETAMINOPHEN 325 MG TAB PO PRN ×2 (01:22→07:19)
[2022-10-13] MEDS ORDERED: MoRPHine SULFATE 2 MG/ML CARP IV STA (04:54)
[2022-10-13] MEDS ORDERED: ONDANSETRON INJ 2 MG/ML 2 ML VIAL IV STA (05:15)
[2022-10-13 06:38] LABS: Hematocrit (blood only) 31.8 % (40.1-51.0); Hemoglobin 10.4 g/dl (14.0-18.0); Mean Corpuscular Hemoglobin 31.1 pg (25.0-34.0); Mean Corpuscular Hgb Conc 32.7 g/dL (32.0-36.0); Mean Corpuscular Volume 95.2 fL (80.0-100.0); Mean Platelet Volume 12.6 fL (9.4-12.4); Nucleated RBC # (auto) 0.05 K/uL (0-0); Nucleated RBC % (auto) 0.2 %; Platelet Count 223 K/uL (130-400); RDW Coefficient of Variation 17.4 % (11.5-14.5); RDW Standard Deviation 55.2 fL (36.4-46.3); Red Blood Count 3.34 M/uL (4.63-6.08); White Blood Count 22.51 K/ul (4.8-10.8)
[2022-10-13 06:51] LABS: Calcium 8.8 mg/dl (8.5-10.1); Creatinine Clr Calc Pharmacy 30.3 ml/min; Est GFR (African American) 44.3 ml/min; Est GFR (Non-African American) 38.2 ml/min; Potassium 4.4 mmol/L (3.5-5.1)
[2022-10-13] MEDS: LEVOTHYROXINE SODIUM 100 MCG TABLET PO SCH (07:21)
[2022-10-13] MEDS: amLODIPine BESYLATE 5 MG TAB PO SCH (07:53)
[2022-10-13] MEDS: FUROSEMIDE 40 MG TAB PO SCH ×2 (07:53→16:36)
[2022-10-13] MEDS: DOCUSATE SODIUM 100 MG CAP PO SCH ×2 (07:53→20:30)
[2022-10-13] MEDS: cloNIDine HCL 0.1 MG TAB PO SCH ×3 (07:54→20:29)
[2022-10-13] MEDS: allopurinoL 100 MG TAB PO SCH (07:54)
[2022-10-13] MEDS: CARBIDOPA/LEVODOPA 25/100MG TAB PO SCH ×3 (07:54→20:28)
[2022-10-13] MEDS: CEROVITE ADV FORMULA TAB PO SCH (07:55)
[2022-10-13] MEDS: guaiFENesin 600 MG TABCR PO SCH ×2 (07:56→20:30)
[2022-10-13] MEDS: LIDOCAINE 5% 1 PATCH TD SCH (08:00)
[2022-10-13] MEDS: PANTOprazole 40 MG in SYRINGE 0 ML IV SCH ×2 (08:00→20:31)
[2022-10-13] MEDS: SENNA 8.6 MG TAB PO SCH (08:01)
[2022-10-13] MEDS: NYSTATIN SUSP 500,000 U/5 ML UDC PO SCH ×4 (08:01→20:28)
[2022-10-13] MEDS: POLYETHYLENE (MIRALAX) 17 GM PACK PO SCH ×2 (08:02→20:31)
--- NOTE | 2022-10-13 08:32 | XRay Report ---
KUB HISTORY: Generalized abdominal pain COMPARISON: Abdomen and pelvis CT 10/08/2022. FINDINGS: There is contrast seen throughout the colon. Multiple colonic diverticula are noted. There are few mildly dilated gas-filled loops of small bowel seen within the abdomen. Moderate well-formed stool seen within the colon. An IVC filter is noted. Vascular stents are seen within the upper abdome n. No renal calculi. No ureteral calculi. No pneumoperitoneum or pneumatosis. IMPRESSION: 1. Moderate well-formed stool within the colon. 2. Mildly dilated gas-filled loops of small bowel. ACT 112: Negative or not required by law. Electronically signed by: Phi Shaikh M.D. 10/13/2022 8:31 AM
--- NOTE | 2022-10-13 08:47 | CT Scan Report ---
ABDOMEN AND PELVIS CT WITHOUT CONTRAST CT DOSE: 327.58 mGy.cm HISTORY: Generalized abdominal pain. Vomiting. TECHNIQUE: Multiaxial CT images of the abdomen and pelvis were performed without contrast. A dose lo wering technique was utilized adhering to the principles of ALARA. COMPARISON STUDY: Abdomen and pelvis CT 10/08/2022. FINDINGS: Small right and trace left pleural effusions. There are patchy airspace opacities within th e right lower lobe posteriorly which is new from the prior study. A pacemaker wire is noted. No pneum operitoneum. No pneumatosis. No acute fractures identified. The heart remains enlarged. The gallbladd er is distended. There is questionable mild pericholecystic inflammatory change. No gallstones by CT. The unenhanced liver, spleen, adrenal glands, and pancreas are unremarkable. A few bilateral renal h ypo and hyperdense lesions again noted. Questionable 2.4 cm exophytic lesion within the lower pole th e left kidney. There is a punctate right renal stone. No ureteral stones. No hydronephrosis. No retro peritoneal lymphadenopathy. Mildly ectatic abdominal aorta. Bilateral renal artery stents are noted. No retroperitoneal lymphadenopathy. The bladder is decompressed by Partida catheter. This likely accoun ts for the gas within the bladder lumen. Decrease within the overall stool burden within the colon an d rectum. Specifically, a moderate-sized stool ball has decreased in size and now measures 4.8 cm. Ho wever, there has been interval of mild rectal wall thickening with perirectal fat stranding/edema. Th is is nonspecific but could represent a stercoral colitis. Colonic diverticulosis. No evidence for ac noemy diverticulitis. There is residual contrast seen throughout the colon. Mildly dilated gas-filled l oops of small bowel have improved. No pelvic free fluid. IMPRESSION: 1. The gallbladder is distended and there is questionable mild pericholecystic inflammatory change. T his is new from the prior study. Consider follow-up abdominal ultrasound or HIDA scan to exclude the possibility of a developing acute cholecystitis. 2. Interval rectal wall thickening with perirectal fat stranding/edema. This is nonspecific but could represent a stercoral colitis. 3. Right-sided nephrolithiasis. No hydronephrosis. 4. Possible exophytic solid mass within the lower pole of the left kidney. Consider follow-up renal u ltrasound for further evaluation. 5. Mildly dilated gas-filled loops of small bowel have improved in the interval. 6. There is a new patchy airspace opacity within the right lower lobe. This could represent a pneumon ia. 7. Additional findings as described above. ACT 112: Negative or not required by law. Electronically signed by: Phi Shaikh M.D. 10/13/2022 8:45 AM
[2022-10-13] MEDS: POTASSIUM CHLORIDE CRTAB 20 MEQ TABCR PO SCH ×3 (09:51→20:30)
[2022-10-13 10:44] LABS: Albumin Level 3.3 gm/dl (3.4-5.0); Bilirubin Direct 0.5 mg/dl (0-0.2); Bilirubin,Total 1.8 mg/dl (0.2-1.0); Total Protein 5.8 gm/dl (6.0-8.3)
--- NOTE | 2022-10-13 11:16 | Hospitalist Progress Note ---
Date of Service October 13, 2022 Assessment & Plan (1) Acute cholecystitis: Plan: Pt's RUQ pain, CT a/p findings, gall bladder u/s findings, rise in t.bili, and rise in WBC count overnight along with nausea/emesis are highly suspicious for acute cholecysitis. IV unasyn started. He is a very poor surgical candidate due to his host of medical problems (presumed CAD, pulm HTN, CHF, COPD, a.fib, etc), recent GI bleeding, malnourishment, etc. We had just begun palliative care discussions last pm due to his severe failure to thrive and his poor progress through this 3 week hospital stay. Gen surg consult completed; they, too, feel he is a very poor operative cand idate. Could consider cholecystostomy tube vs IV abx alone vs shifting fully to comfort care. He would need to transfer to tertiary care for cholecystostomy tube. Gen surg and palliative care met with patient//children to discuss options. Pt/family not fully decided, but I did speak with his this evening and she does not feel he could withstand surgery. Pt/family to meet with Dr Crystal from palliative care tomorrow. Cont IV abx in meantime. Cont IV pain meds. labs in am. (2) Failure to thrive in adult: Plan: present this ENTIRE hospitalization despite maximal medical efforts to treat pulmonary issues, GI issues, etc. has had consultation with cardiology, pulmonary, nephrology, and gastroenterology. despite such he has had little to no improvement on a global basis. discussed in detail palliative care/hospice with pt & his /son on 10/12/22. appreciate palliative care consult today. see above new issue of brewing cholecystitis. (3) Severe protein-calorie malnutrition: Plan: present for weeks-months his weight is ~145 pounds, down from 170+ pounds during this stay some of this was fluid of course, but he has not eaten the entire stay and much of this weight loss is from lack of nutrition (4) Anorexia: Plan: despite Rx of pneumonia no change in appetite crp -- remains high, etiology uncertain - perhaps it was a brewing gall bladder problem that simply was not showing up radiographically earlier in his stay?? now having maroon-colored stools -- GI tract malignancy given elevated CEA?? poor candidate for endoscopic evaluation NPO - strict - due to #1 and #5 (5) Blood in stool: Plan: continues to have maroon-colored stools although the amounts are small and his H/H remained relatively stable over the last 48 hours. etiology -- diverticular? internal hemorrhoids? AVMs? ischemia? (but no abdominal pain) colon ca given mildly elevated CEA level?? cont to hold pradaxa and plavix first CT a/p with diverticular disease noted no evidence of colitis lots of stool present on CT including large stool ball nuclear bleeding scan 10/10/22 was negative for active bleeding but could be false negative 2nd CT early today - concern for developing cholecystitis (6) Chronic diastolic congestive heart failure: Plan: acute/chronic HFpEF - acute component had seemingly resolved early in the stay but volume status remained clinically & radiographically overloaded despite aggressive diuresis. despite attempts at diuresis for nearly 3 weeks he reports every day his breathing is still short and he "feels no different." Echo 11/12: EF 50-55%, left ventricular systolic function low normal, no regional WMA, RV mildly dilated, RV systolic function normal, severe pulmonary hypertension and moderately dilated IVC, moderate tricuspid regurg. Echo this admission largely unchanged. he was aggressively diuresed over the last 2-3 weeks recently his IV lasix was d/c and changed to PO lasix 40mg BID may need to hold this due to NPO status BMP am suspect severe CKD made it difficult to effect a good diuresis during this prolonged hospitalization. (7) Pneumonia: Plan: completed 7+ days of broad-spectrum IV/PO abx including gram negative coverage with cefepime and atypical coverage with doxy. despite such he has not felt any better. CRP was high but improved with IV abx/steroids. CRP again is back to >10. see discussion above. legionella urine ag was negative. biofire resp panel was negative. blood/sputum cx's negative. [id number] was POSITIVE. I spoke with Dr Torres from pulmonary and despite the + test it is unlikely he has fungal pneumonia. (8) COPD (chronic obstructive pulmonary disease): Plan: with mild exacerbation early in stay now resolved s/p steroids ; no wheezing in 2+ weeks PFTs 2021 with mild obstruction, poor bronchodilator response (9) Shortness of breath: Plan: thought to be a combination of both acute/chronic HFpEF and pneumonia along with mild COPD flare pulmonary HTN likely also contributes despite aggressive diuresis/steroids/abx he continues to feel poorly from pulmonary standpoint appreciate cards/pulm/nephro suggestions he is on chronic Pradaxa thus VTE not suspected (although now on hold due to GI bleeding) see #3 above re: fungal serology + (10) ST segment changes on electrocardiogram: Plan: admission EKG - inferior ST changes but NO ischemic symptoms and troponins negative - although he mentioned vague episode of chest pain pre-hospital sometime in the last couple of weeks with that said he walks 2-3 miles EVERY DAY without limiting dyspnea, chest pain , etc. he has presumed CAD (numerous CAD risk factors, etc) but no cath to definitively diagnose such cont plavix cont simvastatin/zetia unfortunately, even if we wanted to perform stress test, he is not a candidate at this time for such no ischemic symptoms while hospitalized (11) Severe pulmonary hypertension: Plan: cont night-time CPAP (12) Permanent atrial fibrillation: Plan: S/p single-chamber pacer placement 2010. HOLD Pradaxa 75mg BID due to rectal bleeding. Is not on BB or CCB therapy at baseline. (13) Parkinson's disease: Plan: Continue Sinemet. Appreciate speech therapy eval -- > no dysphagia seen. Video swallow normal. (14) PAD (peripheral artery disease): Plan: Continue simvastatin and ezetimibe Hold plavix due to GI bleeding (15) Hypertension: Plan: Continue amlodipine, clonidine. (16) Hypothyroidism: Plan: Continue levothyroxine. TSH earlier in 2021 wnl. (17) Anemia: Plan: 2nd to CKD, acute blood loss anemia from lower GI bleeding, etc. cbc in am (18) Apnea, sleep: Plan: CPAP at night. (19) Chronic kidney disease, stage IV (severe): Plan: baseline CrCl 20s baseline Cr 1.8 Cr again stable today BMP in am (20) NSVT (nonsustained ventricular tachycardia): Plan: brief episode (<10 beats) several days ago -- no symptoms from such then did not have any additional episodes tele stopped recent echo with preserved EF and no LV wall motion abnormalities K wnl Mag wnl Plan DVT proph - pradaxa typically used, but holding due to GI bleeding remains DNR/DNI poor prognosis see above discussions Admission and Anticipated Discharge Date Admission Date: September 24, 2022 Subjective patient states that about 2100 last pm he developed constant, severe RUQ/epigastric abd pain it lasted all night into this am he was uncomfortable during the night due to such did have emesis x 1 overnight breathing is same as yesterday - no better, no worse no cough he simply "feels poorly" and states "I don't feel any better" Review of Systems Review of Systems: gen - no fevers; feels fatigued cv - no chest pain pulm - no cough/no sputum GI - RUQ pain/nausea/vomiting - mack in place Physical Exam Physical Exam: gen - looks tired/fatigued/unwell mouth - MM dry neck - no JVD heart - irregular, s1 s2, 2/6 systolic murmur lungs - scant rales bases, good airation, no wheezing abd - TENDER RUQ with palpation; no peritoneal signs; BS+; ND ext - no edema b/l, pulses 2+ b/l psych - a/o x 3; despondent Results & Data Results & Data ([facility]) Vital Signs (Past 12 Hours) Vital Signs Temp Pulse Resp BP Pulse Ox O2 Del Method O2 Flow Rate 10/13/22 07:01 36.6 C 70 16 154/63 H 94 Nasal Cannula 4 10/13/22 04:42 37 C 73 16 150/61 H 98 Nasal Cannula 4 10/13/22 02:41 19 97 4 Laboratory Results Laboratory Results - last 24 hr 10/12/22 10/12/22 10/12/22 11:46 17:02 20:23 WBC RBC Hgb Hct MCV MCH MCHC RDW Std Deviation RDW Coeff of Italo Plt Count MPV Absolute Nucleated RBC Nucleated RBC % (auto) Sodium Potassium Chloride Carbon Dioxide Anion Gap BUN Creatinine Est Cr Clr Drug Dosing Est GFR ( Amer) Est GFR (Non-Af Amer) BUN/Creatinine Ratio Glucose POC Glucose 172 H 202 H 156 H Lactate Calcium Total Bilirubin Direct Bilirubin AST ALT Alkaline Phosphatase Total Protein Albumin 10/13/22 10/13/22 10/13/22 06:06 06:06 06:06 WBC 22.51 H D RBC 3.34 L Hgb 10.4 L Hct 31.8 L MCV 95.2 MCH 31.1 MCHC 32.7 RDW Std Deviation 55.2 H RDW Coeff of Italo 17.4 H Plt Count 223 MPV 12.6 H Absolute Nucleated RBC 0.05 H Nucleated RBC % (auto) 0.2 Sodium 143 Potassium 4.4 Chloride 110 H Carbon Dioxide 28 Anion Gap 5 BUN 49 H Creatinine 1.58 H Est Cr Clr Drug Dosing 30.3 Est GFR ( Amer) 44.3 Est GFR (Non-Af Amer) 38.2 BUN/Creatinine Ratio 31.0 H Glucose 180 H POC Glucose Lactate 0.9 Calcium 8.8 Total Bilirubin Direct Bilirubin AST ALT Alkaline Phosphatase Total Protein Albumin 10/13/22 10/13/22 06:06 07:57 WBC RBC Hgb Hct MCV MCH MCHC RDW Std Deviation RDW Coeff of Italo Plt Count MPV Absolute Nucleated RBC Nucleated RBC % (auto) Sodium Potassium Chloride Carbon Dioxide Anion Gap BUN Creatinine Est Cr Clr Drug Dosing Est GFR ( Amer) Est GFR (Non-Af Amer) BUN/Creatinine Ratio Glucose POC Glucose 158 H Lactate Calcium Total Bilirubin 1.8 H Direct Bilirubin 0.5 H AST 25 ALT 4 L Alkaline Phosphatase 64 Total Protein 5.8 L Albumin 3.3 L Diagnostic Findings ABDOMEN AND PELVIS CT WITHOUT CONTRAST CT DOSE: 327.58 mGy.cm HISTORY: Generalized abdominal pain. Vomiting. TECHNIQUE: Multiaxial CT images of the abdomen and pelvis were performed without contrast. A dose lowering technique was utilized adhering to the principles of ALARA. COMPARISON STUDY: Abdomen and pelvis CT 10/08/2022. FINDINGS: Small right and trace left pleural effusions. There are patchy airspace opacities within the right lower lobe posteriorly which is new from the prior study. A pacemaker wire is noted. No pneumoperitoneum. No pneumatosis. No acute fractures identified. The heart remains enlarged. The gallbladder is dis tended. There is questionable mild pericholecystic inflammatory change. No gallstones by CT. The unenhanced liver, spleen, adrenal glands, and pancreas are unremarkable. A few bilateral renal hypo and hyperdense lesions again noted. Questionable 2.4 cm exophytic lesion within the lower pole the left kidney. There is a punctate right renal stone. No ureteral stones. No hydronephrosis. No retroperitoneal lymphadenopathy. Mildly ectatic abdominal aorta. Bilateral renal artery stents are noted. No retroperitoneal lymphadenopathy. The bladder is decompressed by Mack catheter. This likely accounts for the gas within the bladder lumen. Decrease within the overall stool burden within the colon and rectum. Specifically, a moderate-sized stool ball has decreased in size and now measures 4.8 cm. However, there has been interval of mild rectal wall thickening with perirectal fat stranding/edema. This is nonspecific but could represent a stercoral colitis. Colonic diverticulosis. No evidence for acute diverticulitis. There is residual contrast seen throughout the colon. Mildly dilated gas-filled loops of small bowel have improved. No pelvic free fluid. IMPRESSION: 1. The gallbladder is distended and there is questionable mild pericholecystic inflammatory change. This is new from the prior study. Consider follow-up abdominal ultrasound or HIDA scan to exclude the possibility of a developing acute cholecystitis. 2. Interval rectal wall thickening with perirectal fat stranding/edema. This is nonspecific but could represent a stercoral colitis. 3. Right-sided nephrolithiasis. No hydronephrosis. 4. Possible exophytic solid mass within the lower pole of the left kidney. Consider follow-up renal ultrasound for further evaluation. 5. Mildly dilated gas-filled loops of small bowel have improved in the interval. 6. There is a new patchy airspace opacity within the right lower lobe. This could represent a pneumonia. 7. Additional findings as described above. ACT 112: Negative or not required by law. Electronically signed by: Phi Shaikh M.D. 10/13/2022 8:45 AM US gallbladder CLINICAL HISTORY: suspected developing cholecystitis COMPARISON STUDY: CT of the abdomen and pelvis performed earlier today. FINDINGS: There are no hepatic lesions. There is no biliary ductal dilatation. The common bile duct measures 5 mm in caliber. The gallbladder is moderately distended. Mild gallbladder wall thickening is noted as well as trace pericholecystic fluid. Sonographic Mckeon sign could not be assessed for. Gallbladder is partially sludge-filled. Pancreas is obscured. No right hydronephrosis is present. IMPRESSION: 1.Moderate gallbladder distention with mild wall thickening and trace pericholecystic fluid. Sludge within the gallbladder. No gallstones. Acute cholecystitis cannot be excluded. A hepatobiliary scan could be obtained as indicated. 2. No biliary ductal dilatation. 3. Obscured pancreas. ACT 112: Negative or not required by law. Electronically signed by: Xu Stiles M.D. 10/13/2022 3:33 PM PG Care Time/CCT Total # of Minutes Spent Total Time Spent with Patient: Total time spent is greater than 50% in coordination of care (as documented) at patient's floor/unit and/or counseling patient: Coding Level of Care Code 27249 SUB INP/OBS CARE 3/50MIN Diagnoses Acute cholecystitis K81.0 Failure to thrive in adult R62.7 Severe protein-calorie malnutrition E43 Anorexia R63.0 Blood in stool K92.1 Chronic diastolic congestive heart failure I50.32 Pneumonia J18.9 COPD (chronic obstructive pulmonary disease) J44.[address] of [address] segment changes on electrocardiogram R94.31 Severe pulmonary hypertension I27.20 Permanent atrial fibrillation I48.21 Parkinson's disease G20 PAD (peripheral artery disease) I73.9 Hypertension I10 Hypothyroidism E03.9 Anemia D64.9 Apnea, sleep G47.33 Sleep apnea type: obstructive Chronic kidney disease, stage IV (severe) N18.4 NSVT (nonsustained ventricular tachycardia) I47.29 (1) Apnea, sleep Sleep apnea type: obstructive Qualified Code(s): G47.33 - Obstructive sleep apnea (adult) (pediatric)
--- NOTE | 2022-10-13 12:08 | Palliative Care Consultation ---
Date of Consultation October 13, 2022 Assessment & Plan (1) Failure to thrive in adult: Chronic, with evident primary cause. His appetite continues to be poor and is now complicated by possible cholecystitis. I met with Mrs. Ramsay and their son, Marquis. They asked about options for nutrition. We discussed maximizing calories as we have been, but that unfortunately only works if Vel is able to eat. We discussed options for artificial feeding and they feel that he would not want to pursue artificial f eeding. "He wouldn't want tubes". We did discuss lack of appetite as a symptom of overall decline and the possibility that Vel's body is wearing out. (2) Abdominal pain: Possible cholecystitis. GB US today. Surgery to see. (3) Breath shortness: with COPD and HFpEF. He has had significant diuresis. No dyspnea at rest. (4) Palliative care encounter: I talked with Mr. Ramsay about his illness and what his expectations are. He tells me that he is hopeful that he can get better. I asked him what that meant to him and he told me that he wanted to get back to the way he was three months ago. Per family, he was walking 2-3 miles a day prior to his hospitalization. We discussed that this may not be a realistic option and concern that despite aggressive treatment of his multiple comorbidities, he has been getting weaker and appetite remains poor. We also discussed concern about his gallbladder and concern about whether he would be a candidate for surgery. I met with his and son, Marquis at bedside also. We reviewed current concerns and I asked them if Vel had ever discussed what he would want for his care if he were seriously ill. His told me that he has always been very healthy and never really talked about that. They understand that he would likely not be a candidate for surgery. Mrs. Ramsay tells me that she would not be able to care for him at home. They are agreeable to further discussion again tomorrow, after they meet with surgery. We discussed possible option of comfort focused care and what that would look like. They will consider this and we will f/u tomorrow. History of Present Illness Reason for Consultation: goals of care Requesting Physician: Dr. Tam Attending Physician: Uriah Tam History of Present Illness 87 yo gentleman with history of HFpEF, severe pulmonary hypertension, COPD, afib with pacemaker placement in December 2021, Parkinson's disease and CKD. He has had ongoing problems with failure to thrive. He has had very poor po intake in his prolonged hospital stay and apparently had poor intake prior to that. When I asked him how long he had been having problems he told me "4-5 days". He denies difficulty with chewing or swallowing as well as nausea. Within the last 24 hours, he has been complaining of pain across his mid abdomen. CT shows gall bladder distension with questionable mild inflammation. He has also had maroon stools during his hospitalization with stable hemoglobin and negative nuclear medicine bleeding scan. Lactate is 0.9. He initially presented with shortness of breath and has had significant diuresis and treatment for pneumonia. I asked him how he feels today and he told me "so, so". He has a broad understanding of his multiple medical problems. Allergies Allergy/AdvReac Type Severity Reaction Status Date / Time hydralazine AdvReac Severe anorexia,h/ Verified 08/27/22 14:25 a,nausea,pa lpitations Home Medications Medication Instructions Recorded Confirmed Type CPAP Machine #10 ea 07/13/19 09/24/22 Rx CPAP Machine #1 ea 04/24/20 09/24/22 Rx nitroglycerin 0.4 mg sublingual 0.4 mg buccal UD PRN Chest Pain 01/08/21 09/24/22 Rx tablet (Nitrostat) #25 tabs levothyroxine 100 mcg tablet 100 mcg PO QAM #90 tabs 02/11/22 09/24/22 Rx clopidogrel 75 mg tablet 75 mg PO QAM #90 tabs 05/01/22 09/24/22 Rx potassium chloride 20 mEq 20 meq PO DAILY #90 tabs 05/06/22 09/24/22 Rx tablet,extended release allopurinol 100 mg tablet 200 mg PO QAM #180 tabs 06/30/22 09/24/22 Rx amlodipine 10 mg tablet 10 mg PO QAM #90 tabs 06/30/22 09/24/22 Rx clonidine HCl 0.2 mg tablet 0.2 mg PO TID #540 tabs 06/30/22 09/24/22 Rx furosemide 40 mg tablet 120 mg PO QAM #270 tabs 06/30/22 09/24/22 Rx dabigatran etexilate 75 mg capsule 75 mg PO BID #180 caps 07/28/22 09/24/22 Rx ezetimibe 10 mg-simvastatin 20 mg 1 tab PO HS #90 tabs 07/28/22 09/24/22 Rx tablet carbidopa 25 mg-levodopa 100 mg 1 tab PO TID 90 days #270 tabs 08/27/22 09/24/22 Rx tablet Patient History Medical History Anemia Anticoagulant long-term use Carotid artery stenosis Chronic constipation Chronic kidney disease, stage 3 (moderate) Dyslipidemia Former smoker GERD (gastroesophageal reflux disease) Gout History of DVT (deep vein thrombosis) HTN (hypertension) Hypothyroid Pacemaker (01/2021) Parkinson's disease Permanent atrial fibrillation Pleural effusion Subdural hematoma (2006) Surgical History H/O vasectomy History of appendectomy History of renal stent (2006) Right History of renal stent (2008) Left Hx of tonsillectomy S/P carotid endarterectomy (1994) S/P insertion of inferior vena caval filter Family History Father Diabetes Denies family history of Ovarian cancer Prostate cancer Myocardial infarction Breast cancer Lung cancer Colorectal cancer Stroke Social History Smoking Status: Former smoker Age Started Using Tobacco: 12; Age Quit Using Tobacco: 53; packs per day: 1; Cigarettes Per Day: 20; Second Hand Exposure: No; Hx Alcohol Use: Yes Alcohol type: beer Hx Substance Use: No Preferred Language: Cymro Communication Ability: Effective Visual Impairment: No Limitations Hearing Ability: Normal Educational Advisor Required: No Beliefs That Will Affect Care: None marital status: Current Living Situation: Spouse Current Living Situation Comment: from home current occupational status: retired Feels Safe at Home: Yes Childhood Exposure to Second-Hand Smoke: Yes during the past year weight has: remained stable Physical Activity Frequency: Daily Physical Activity Frequency Comment: walks a mile every day in nice weather Seatbelt Use: always Assistive Devices: None Review of Systems Review of Systems: ESAS Pain 2/3 Dyspnea 1/3 Nausea 0/3 Drowsiness 0/3 Anxiety 0/3 Physical Exam Constitutional: + frail appearing ENMT: Mouth: + dry oral mucous membranes Respiratory: normal respiratory effort; no labored breathing Cardiovascular: Rate/Rhythm: + irregularly irregular Musculoskeletal: Extremities: + muscle atrophy Skin: warm and dry Results & Data ([facility]) Vital Signs (Past 12 Hours) Vital Signs Temp Pulse Resp BP Pulse Ox O2 Del Method O2 Flow Rate 10/13/22 07:01 97.9 F 70 16 154/63 H 94 Nasal Cannula 4 10/13/22 04:42 98.6 F 73 16 150/61 H 98 Nasal Cannula 4 10/13/22 02:41 19 97 4 PG Care Time/CCT Total # of Minutes Spent Total Time Spent: 70 Total Time Spent with Patient: Total time spent is greater than 50% in coordination of care (as documented) at patient's floor/unit and/or counseling patient: goals of care, prognosis, symptom management, patient and family education and support. Coding Level of Care Code 64007 INT INP/OBS CARE 2/55MIN Diagnoses Failure to thrive in adult R62.7 Abdominal pain R10.9 Breath shortness R06.02 Palliative care encounter Z51.5
[2022-10-13] MEDS: CALCIUM 600MG + VIT D 400 IU TAB PO SCH (12:24)
[2022-10-13] MEDS: AMPICILLIN/SULBACTAM SOD 3,000 MG in 0.9 % SODIUM CHLORIDE 100 ML IV SCH ×2 (12:24→18:12)
--- NOTE | 2022-10-13 15:01 | Surgery Consultation ---
Date of Consultation October 13, 2022 Assessment & Plan (1) Abdominal pain: This is an 87y M with a PMH of pulmonary HTN, COPD, afib, pacemaker, parkinsonism, CKD, PAD, who presents to the [facility] on 09/24/22 with shortness of breath. Hospitalists have admitted the patient for this workup and has been treated for pneumonia amongst managing other medical issues. We have been consulted as patient developed abdominal pain starting yesterday. Workup with a CT a/p showed a distended gallbladder with mild pericholecystic change. RUQ US showed moderate gallbladder distention with mild wall thickening, trace fluid, + sludge, and no stones...cannot rule out acute cholecystitis. Today's labs show WBC 22, Tb: 1.8. On examination patient's abdomen soft, non distended, generalized discomfort to palpation but worse in the RUQ region. He denies n/v, but has not been eating well over the last several days. Discussed with patient and family at the bedside that he is not an ideal surgical candidate given his multiple medical issues. If they wish to proceed with further intervention he may be a candidate for percutaneous cholecystostomy tube. Unfortunately we do not perform this procedure here and he would need to be transferred to a center with IR capabilities. Family unsure if they want to go this route and asked if any other options. Can consider a course of abx to treat for cholecystitis if they do not wish to proceed with any invasive interventions. Family wishing to discuss and think things over further. Again no plans for surgical intervention here, recommend perc ellie tube, however if family/patient do not wish to go this route than we can try to manage with antibiotics as another option. Palliative on board for goals of care discussions as well. We will follow peripherally. Please call with any questions/concerns. Supervising Physician Co-Signing Physician Notes I personally saw and evaluated the patient with Lizzeth Hunt PA-C and agree with the assessment and plan. 87-year-old male with failure to thrive, history of pneumonia, now with cholecystitis CT images and results personally viewed by myself, he does have gallbladder inflammation and right upper quadrant pain consistent with cholecystitis He will get a right upper quadrant ultrasound to rule out choledocholithiasis due to his elevated bilirubin He is not a surgical candidate and if he desires to treat his cholecystitis would recommend a cholecystostomy tube placement History of Present Illness Attending Physician: Uriah Tam History of Present Illness This is an 87y M with a PMH of pulmonary HTN, COPD, afib, pacemaker, parkinsonism, CKD, PAD, who presents to the [facility] on 09/24/22 with shortness of breath. Hospitalists have admitted the patient for this workup and has been treated for pneumonia amongst managing other medical issues. Apparently yesterday the patient developed abdominal pain prompting further workup. A CT a/p showed that the gallbladder is distended and there is questionable mild pericholecystic inflammatory change. This is new from the prior study. There is also concern for stercoral colitis. Follow up with a RUQ US showed, moderate gallbladder distention with mild wall thickening and trace pericholecystic fluid, sludge within the gallbladder, no gallstones and cannot rule out acute cholecystitis cannot be excluded. Per patient he has not been eating well over the last 4-5 days. No nausea/vomiting. Has been dealing with some constipation issues. Currently rates his pain a 7/10 on the right side. Allergies Allergy/AdvReac Type Severity Reaction Status Date / Time hydralazine AdvReac Severe anorexia,h/ Verified 08/27/22 14:25 a,nausea,pa lpitations Home Medications Medication Instructions Recorded Confirmed Type CPAP Machine #10 ea 07/13/19 09/24/22 Rx CPAP Machine #1 ea 04/24/20 09/24/22 Rx nitroglycerin 0.4 mg sublingual 0.4 mg buccal UD PRN Chest Pain 01/08/21 09/24/22 Rx tablet (Nitrostat) #25 tabs levothyroxine 100 mcg tablet 100 mcg PO QAM #90 tabs 02/11/22 09/24/22 Rx clopidogrel 75 mg tablet 75 mg PO QAM #90 tabs 05/01/22 09/24/22 Rx potassium chloride 20 mEq 20 meq PO DAILY #90 tabs 05/06/22 09/24/22 Rx tablet,extended release allopurinol 100 mg tablet 200 mg PO QAM #180 tabs 06/30/22 09/24/22 Rx amlodipine 10 mg tablet 10 mg PO QAM #90 tabs 06/30/22 09/24/22 Rx clonidine HCl 0.2 mg tablet 0.2 mg PO TID #540 tabs 06/30/22 09/24/22 Rx furosemide 40 mg tablet 120 mg PO QAM #270 tabs 06/30/22 09/24/22 Rx dabigatran etexilate 75 mg capsule 75 mg PO BID #180 caps 07/28/22 09/24/22 Rx ezetimibe 10 mg-simvastatin 20 mg 1 tab PO HS #90 tabs 07/28/22 09/24/22 Rx tablet carbidopa 25 mg-levodopa 100 mg 1 tab PO TID 90 days #270 tabs 08/27/22 09/24/22 Rx tablet Patient History Medical History Anemia Anticoagulant long-term use Carotid artery stenosis Chronic constipation Chronic kidney disease, stage 3 (moderate) Dyslipidemia Former smoker GERD (gastroesophageal reflux disease) Gout History of DVT (deep vein thrombosis) HTN (hypertension) Hypothyroid Pacemaker (01/2021) Parkinson's disease Permanent atrial fibrillation Pleural effusion Subdural hematoma (2006) Surgical History H/O vasectomy History of appendectomy History of renal stent (2006) Right History of renal stent (2008) Left Hx of tonsillectomy S/P carotid endarterectomy (1994) S/P insertion of inferior vena caval filter Family History Father Diabetes Denies family history of Ovarian cancer Prostate cancer Myocardial infarction Breast cancer Lung cancer Colorectal cancer Stroke Social History Smoking Status: Former smoker Age Started Using Tobacco: 12; Age Quit Using Tobacco: 53; packs per day: 1; Cigarettes Per Day: 20; Second Hand Exposure: No; Hx Alcohol Use: Yes Alcohol type: beer Hx Substance Use: No Preferred Language: [place] Communication Ability: Effective Visual Impairment: No Limitations Hearing Ability: Normal Real Estate Analyst Required: No Beliefs That Will Affect Care: None marital status: Current Living Situation: Spouse Current Living Situation Comment: from home current occupational status: retired Feels Safe at Home: Yes Childhood Exposure to Second-Hand Smoke: Yes during the past year weight has: remained stable Physical Activity Frequency: Daily Physical Activity Frequency Comment: walks a mile every day in nice weather Seatbelt Use: always Assistive Devices: None Review of Systems Constitutional: + fatigue and + anorexia; no fever and no chills Cardiovascular: no chest pain Gastrointestinal: + abdominal pain (right sided) and + constipation; no nausea and no vomiting Physical Exam Physical Exam: awake, no distress Gastrointestinal (Abdomen): Inspection/Auscultation: abdomen not distended Percussion/Palpation: + abdomen tender (ttp in RUQ region and generalized throughout abdomen) and abdomen soft Results & Data ([facility]) Vital Signs (Past 12 Hours) Vital Signs Temp Pulse Resp BP Pulse Ox O2 Del Method O2 Flow Rate 10/13/22 07:01 36.6 C 70 16 154/63 H 94 Nasal Cannula 4 10/13/22 04:42 37 C 73 16 150/61 H 98 Nasal Cannula 4 Diagnostic Findings ABDOMEN AND PELVIS CT WITHOUT CONTRAST CT DOSE: 327.58 mGy.cm HISTORY: Generalized abdominal pain. Vomiting. TECHNIQUE: Multiaxial CT images of the abdomen and pelvis were performed without contrast. A dose lowering technique was utilized adhering to the principles of ALARA. COMPARISON STUDY: Abdomen and pelvis CT 10/08/2022. FINDINGS: Small right and trace left pleural effusions. There are patchy airspace opacities within the right lower lobe posteriorly which is new from the prior study. A pacemaker wire is noted. No pneumoperitoneum. No pneumatosis. No acute fractures identified. The heart remains enlarged. The gallbladder is distended. There is questionable mild pericholecystic inflammatory change. No gallstones by CT. The unenhanced liver, spleen, adrenal glands, and pancreas are unremarkable. A few bilateral renal hypo and hyperdense lesions again noted. Questionable 2.4 cm exophytic lesion within the lower pole the left kidney. There is a punctate right renal stone. No ureteral stones. No hydronephrosis. No retroperitoneal lymphadenopathy. Mildly ectatic abdominal aorta. Bilateral renal artery stents are noted. No retroperitoneal lymphadenopathy. The bladder is decompressed by Partida catheter. This likely accounts for the gas within the bladder lumen. Decrease within the overall stool burden within the colon and rectum. Specifically, a moderate-sized stool ball has decreased in size and now measures 4.8 cm. However, there has been interval of mild rectal wall thickening with perirectal fat stranding/edema. This is nonspecific but could represent a stercoral colitis. Colonic diverticulosis. No evidence for acute diverticulitis. There is residual contrast seen throughout the colon. Mildly dilated gas-filled loops of small bowel have improved. No pelvic free fluid. IMPRESSION: 1. The gallbladder is distended and there is questionable mild pericholecystic inflammatory change. This is new from the prior study. Consider follow-up abdominal ultrasound or HIDA scan to exclude the possibility of a developing acute cholecystitis. 2. Interval rectal wall thickening with perirectal fat stranding/edema. This is nonspecific but could represent a stercoral colitis. 3. Right-sided nephrolithiasis. No hydronephrosis. 4. Possible exophytic solid mass within the lower pole of the left kidney. Consider follow-up renal ultrasound for further evaluation. 5. Mildly dilated gas-filled loops of small bowel have improved in the interval. 6. There is a new patchy airspace opacity within the right lower lobe. This could represent a pneumonia. 7. Additional findings as described above. ACT 112: Negative or not required by law. Electronically signed by: Phi Shaikh M.D. 10/13/2022 8:45 AM US gallbladder CLINICAL HISTORY: suspected developing cholecystitis COMPARISON STUDY: CT of the abdomen and pelvis performed earlier today. FINDINGS: There are no hepatic lesions. There is no biliary ductal dilatation. The common bile duct measures 5 mm in caliber. The gallbladder is moderately distended. Mild gallbladder wall thickening is noted as well as trace pericholecystic fluid. Sonographic Mckeon sign could not be assessed for. Gallbladder is partially sludge-filled. Pancreas is obscured. No right hydronephrosis is present. IMPRESSION: 1. Moderate gallbladder distention with mild wall thickening and trace pericholecystic fluid. Sludge within the gallbladder. No gallstones. Acute cholecystitis cannot be excluded. A hepatobiliary scan could be obtained as indicated. 2. No biliary ductal dilatation. 3. Obscured pancreas. ACT 112: Negative or not required by law. Electronically signed by: Xu Stiles M.D. 10/13/2022 3:33 PM PG Care Time/CCT Total # of Minutes Spent Total Time Spent with Patient: Total time spent is greater than 50% in coordination of care (as documented) at patient's floor/unit and/or counseling patient: Coding Level of Care Code 66282 INT INP/OBS CARE 2/55MIN Diagnoses Abdominal pain R10.9
--- NOTE | 2022-10-13 15:34 | Ultrasound Report ---
US gallbladder CLINICAL HISTORY: suspected developing cholecystitis COMPARISON STUDY: CT of the abdomen and pelvis performed earlier today. FINDINGS: There are no hepatic lesions. There is no biliary ductal dilatation. The common bile duct m easures 5 mm in caliber. The gallbladder is moderately distended. Mild gallbladder wall thickening is noted as well as trace pericholecystic fluid. Sonographic Mckeon sign could not be assessed for. Gal lbladder is partially sludge-filled. Pancreas is obscured. No right hydronephrosis is present. IMPRESSION: 1. Moderate gallbladder distention with mild wall thickening and trace pericholecystic fluid. Sludge within the gallbladder. No gallstones. Acute cholecystitis cannot be excluded. A hepatobiliary scan could be obtained as indicated. 2. No biliary ductal dilatation. 3. Obscured pancreas. ACT 112: Negative or not required by law. Electronically signed by: Xu Stiles M.D. 10/13/2022 3:33 PM
[2022-10-13] MEDS: HYDROmorphone INJ 0.5 MG/0.5 ML SYR IV PRN (19:06)
[2022-10-13] MEDS: EZETIMIBE/SIMVASTATIN 10/20 TAB PO SCH (20:30)
[2022-10-14] MEDS: AMPICILLIN/SULBACTAM SOD 3,000 MG in 0.9 % SODIUM CHLORIDE 100 ML IV SCH ×2 (00:14→05:56)
[2022-10-14] MEDS: HYDROmorphone INJ 0.5 MG/0.5 ML SYR IV PRN ×2 (05:54→18:50)
[2022-10-14] MEDS: LEVOTHYROXINE SODIUM 100 MCG TABLET PO SCH (05:55)
[2022-10-14 07:50] LABS: Hematocrit (blood only) 33.4 % (40.1-51.0); Hemoglobin 10.9 g/dl (14.0-18.0); Mean Corpuscular Hemoglobin 31.1 pg (25.0-34.0); Mean Corpuscular Hgb Conc 32.6 g/dL (32.0-36.0); Mean Corpuscular Volume 95.4 fL (80.0-100.0); Mean Platelet Volume 12.8 fL (9.4-12.4); Platelet Count 202 K/uL (130-400); RDW Coefficient of Variation 18.5 % (11.5-14.5); RDW Standard Deviation 57.8 fL (36.4-46.3); White Blood Count 33.47 K/ul (4.8-10.8)
[2022-10-14 07:55] LABS: Albumin Level 3.1 gm/dl (3.4-5.0); Bilirubin,Total 1.6 mg/dl (0.2-1.0); Potassium 4.4 mmol/L (3.5-5.1)
[2022-10-14 08:01] LABS: BUN Creatinine Ratio 26.3 (10-20); Creatinine Clr Calc Pharmacy 27.8 ml/min; Est GFR (African American) 40.3 ml/min; Est GFR (Non-African American) 34.7 ml/min; Total Protein 6.1 gm/dl (6.0-8.3)
[2022-10-14] MEDS: cloNIDine HCL 0.1 MG TAB PO SCH (08:19)
[2022-10-14] MEDS: SENNA 8.6 MG TAB PO SCH (08:19)
[2022-10-14] MEDS: DOCUSATE SODIUM 100 MG CAP PO SCH (08:19)
[2022-10-14] MEDS: CEROVITE ADV FORMULA TAB PO SCH (08:20)
[2022-10-14] MEDS: guaiFENesin 600 MG TABCR PO SCH (08:20)
[2022-10-14] MEDS: amLODIPine BESYLATE 5 MG TAB PO SCH (08:20)
[2022-10-14] MEDS: allopurinoL 100 MG TAB PO SCH (08:20)
[2022-10-14] MEDS: CARBIDOPA/LEVODOPA 25/100MG TAB PO SCH ×3 (08:20→20:24)
[2022-10-14] MEDS: LIDOCAINE 5% 1 PATCH TD SCH (08:21)
[2022-10-14] MEDS: NYSTATIN SUSP 500,000 U/5 ML UDC PO SCH ×4 (08:21→20:24)
[2022-10-14] MEDS: FUROSEMIDE 40 MG TAB PO SCH (08:21)
[2022-10-14] MEDS: POLYETHYLENE (MIRALAX) 17 GM PACK PO SCH (08:22)
[2022-10-14] MEDS: PANTOprazole 40 MG in SYRINGE 0 ML IV SCH ×2 (08:22→20:24)
[2022-10-14] MEDS: POTASSIUM CHLORIDE CRTAB 20 MEQ TABCR PO SCH (08:44)
[2022-10-14] MEDS ORDERED: PIPERACILLIN/TAZOBACTAM 3.375 GM (over 30 mins) IV ONE (10:00)
--- NOTE | 2022-10-14 11:24 | Surgery Progress Note ---
Date of Service October 14, 2022 Assessment & Plan (1) Abdominal pain: Plan: Patient with worsening abdominal pain over the last 48 hours with concern for cholecystitis -WBC 33 today . LFTs show tb: 1.6, otherwise unremarkable -pt with ttp in the RUQ -again discussed with patient that he is not an ideal surgical candidate. our recommendations would be transfer to facility with IR for percutaneous cholecystotomy tube. If they do not wish to go this route could try a course of abx -family discussion to be had today with palliative care/hospitalists given patient's failure to thrive picture and for goals of care Admission and Anticipated Discharge Date Admission Date: September 24, 2022 Supervising Physician Co-Signing Physician Notes I personally saw and evaluated the patient with Lizzeth Hunt PA-C and agree with the assessment and plan. 87-year-old male with failure to thrive, history of pneumonia, now with cholecystitis The patient and family are deciding whether they would like to pursue further care He is not a surgical candidate and if he desires to treat his cholecystitis would recommend a cholecystostomy tube placement Surgery will sign off at this time, please call with any questions or concerns Subjective Patient says "i feel about the same". Still having abdominal pain Physical Exam Physical Exam: awake/alert Gastrointestinal (Abdomen): Percussion/Palpation: + abdomen tender (ttp in ruq) and abdomen soft Results & Data ([facility]) Vital Signs (Past 12 Hours) Vital Signs Temp Pulse Resp BP Pulse Ox O2 Del Method O2 Flow Rate 10/14/22 07:53 36.6 C 78 16 158/65 H 95 Nasal Cannula 4 PG Care Time/CCT Total # of Minutes Spent Total Time Spent with Patient: Total time spent is greater than 50% in coordination of care (as documented) at patient's floor/unit and/or counseling patient: Coding Level of Care Code 34369 SUB INP/OBS CARE 1/25MIN Diagnoses Abdominal pain R10.9
--- NOTE | 2022-10-14 11:51 | Palliative Care Progress Note ---
Date of Service October 14, 2022 Assessment & Plan (1) Abdominal pain: Plan: with acute cholecystitis not a surgical candidate possible transfer to tertiary care for cholecystostomy tubed continue prn hydromorphone (2) Failure to thrive in adult: Plan: now NPO with cholecystitis minimal po intake for several weeks despite course of steroids and treatment of comorbidities (3) Palliative care encounter: Plan: Met with Mr. Ramsay, his and son, Marquis at bedside, along with Dr. Tam. Dr. Tam reviewed current status and options for treatment. We discussed concerns that without surgery, his prognosis is not good. We talked about what was important to him if time were short. He noted that if he is going to , he is hoping that it would be quickly. He stated that he would prefer to be in the hospital if he were dying. His and son feel that not trying to do transfer with IR tube placement would be "giving up". Mrs. Ramsay is concerned that they would have regrets if they did not attempt this procedure. Dr. Tam explained risks and concerns. They understand that his prognosis is poor with either option. Their preference would be to try transfer to tertiary care for further treatment. Admission and Anticipated Discharge Date Admission Date: September 24, 2022 Subjective Having abdominal pain. Wake and talking with family. Review of Systems Review of Systems: ESAS Pain 2/3 Dyspnea 0/3 Nausea 0/3 Anxiety 0/3 Drowsiness 0/3 Physical Exam Constitutional: + ill appearing ENMT: Mouth: + dry oral mucous membranes Respiratory: normal respiratory effort; no labored breathing Gastrointestinal (Abdomen): tender, positive rebound Neurologic: Speech / Cognition: normal cognition Results & Data ([facility]) Vital Signs (Past 12 Hours) Vital Signs Temp Pulse Resp BP Pulse Ox O2 Del Method O2 Flow Rate 10/14/22 07:53 97.9 F 78 16 158/65 H 95 Nasal Cannula 4 PG Care Time/CCT Total # of Minutes Spent Total Time Spent: 53 Total Time Spent with Patient: Total time spent is greater than 50% in coordination of care (as documented) at patient's floor/unit and/or counseling patient:[id number] goals of care, prognosis, patient and family education and support, symptom management Coding Level of Care Code 68853 SUB INP/OBS CARE 3/50MIN Diagnoses Abdominal pain R10.9 Failure to thrive in adult R62.7 Palliative care encounter Z51.5
--- NOTE | 2022-10-14 11:51 | Hospitalist Progress Note ---
Date of Service October 14, 2022 Assessment & Plan (1) Acute cholecystitis: Plan: Pt's RUQ pain, CT a/p findings, gall bladder u/s findings, rise in t.bili, and leukocytosis are highly suspicious for acute cholecystitis. IV unasyn started 10/13/22. NPO status started 10/13/22. Despite the above his leukocytosis worsened overnight (now >30) and he even seems to have a mild amount of rebound on exam. He is a very poor surgical candidate due to his host of medical problems (presumed CAD, pulm HTN, CHF, COPD, a.fib, etc), recent lower GI bleeding, malnourishment, etc. We had just begun palliative care discussions on Thursday, 10/12, due to his severe failure to thrive and his poor progress through this 3 week hospital stay. Gen surg consult completed; they, too, feel he is a very poor operative candidate. Again we had a family meeting today to discuss options for care - transitioning to palliative care/comfort care pathway VS IV antibiotics and supportive care VS IV antibiotics + Tx to tertiary care for consideration of cholecystostomy tube placement. Patient and his family opted for latter option (continued routine treatment and transfer to tertiary care for cholecystostomy tube placement). Due to worsening leukocytosis & clinical exam I broadened his IV unasyn to IV zosyn. Resume IVF with 1/2 NS at 100cc/hr (Na level 150 on BMP today). Cont dilaudid 0.25mg IV q6h prn. Adjust as needed. Prognosis remains very poor. I am concerned, based on his exam, that he could be developing a gangrenous cholecystitis. Transfer to [facility]. He does remain DNR/DNI. I am very thankful to [facility] and Dr Kailyn Romero for accepting Mr Ramsay in transfer for ongoing care. (2) Failure to thrive in adult: Plan: present this ENTIRE hospitalization despite maximal medical efforts to treat pulmonary issues, GI issues, etc. has had consultation with cardiology, pulmonary, nephrology, and gastroenterology. despite such he has had little to no improvement on a global basis. discussed in detail palliative care/hospice with pt & his /son on 10/12/22. then, late in the PM on 10/12/22, he developed abdominal pain, followed by CT a/p AM of 10/13/22 showing signs concerning for a brewing acute cholecystitis. RUQ u/s on 10/13/22 confirmed acute cholecystitis. appreciate palliative care consult - see discussion above in #1. (3) Severe protein-calorie malnutrition: Plan: present for weeks-months his weight is ~145 pounds, down from 170+ pounds during this stay some of this was due to volume overload, but he has not eaten the entire stay and much of this weight loss is from lack of nutrition (4) Anorexia: Plan: despite Rx of pneumonia early in his stay he had no change in appetite he received steroids early in the stay for COPD flare/wheezing without any improvement in appetite aggressive medical efforts over the last 2-3 weeks has not improved his failure to thrive or anorexia he developed lower GI bleeding in the last week - this may have been contributing to his failure to thrive the anorexia currently, however, is due to #1 above (5) Blood in stool: Plan: developed such about 1 week ago multiple maroon-colored stools over the last week only had mild drop in H/H with such plavix/pradaxa held starting 10/08/22 etiology -- diverticular? internal hemorrhoids? AVMs? ischemia? colon ca given mildly elevated CEA level? first CT a/p (10/08/22) with diverticular disease noted; no evidence of colitis; lots of stool present on CT including large stool ball seen by [facility] - too ill for endoscopic evaluation nuclear bleeding scan 10/10/22 was negative for active bleeding surprisingly 2nd CT a/p 10/13/22 concerning for developing cholecystitis blood in stool stopped 10/12 to 10/13 (6) Chronic diastolic congestive heart failure: Plan: acute/chronic HFpEF - acute component had seemingly resolved early in the hospital stay but volume status remained clinically & radiographically overloaded despite aggressive diuresis. despite diuresis for 2-3 weeks (and documented 20+ pound weight loss) he reports every day his breathing is still short and he "feels no different." Echo 11/12: EF 50-55%, left ventricular systolic function low normal, no regional WMA, RV mildly dilated, RV systolic function normal, severe pulmonary hypertension and moderately dilated IVC, moderate tricuspid regurg. Echo this admission largely unchanged. lasix now stopped he is now volume contracted today with Na of 150 (7) Pneumonia: Plan: completed 7+ days of broad-spectrum IV/PO abx including gram negative coverage with cefepime and atypical coverage with doxy early this hospitalization. despite such he has not felt any better. legionella urine ag was negative. biofire resp panel was negative. blood/sputum cx's negative. [id number]-[id number] was POSITIVE. I spoke with Dr Torres from pulmonary and despite the + test it is unlikely he has fungal pneumonia. (8) COPD (chronic obstructive pulmonary disease): Plan: with mild exacerbation early in stay now resolved s/p steroids ; no wheezing in 2+ weeks PFTs 2021 with mild obstruction, poor bronchodilator response (9) Shortness of breath: Plan: thought to be a combination of both acute/chronic HFpEF and pneumonia along with mild COPD flare; chronic pulmonary HTN likely also contributes despite aggressive diuresis/steroids/abx he continues to feel poorly from pulmonary standpoint appreciate cards/pulm/nephro suggestions he is on chronic Pradaxa thus VTE not suspected (although now on hold due to GI bleeding) see #3 above re: fungal serology + (10) ST segment changes on electrocardiogram: Plan: admission EKG - inferior ST changes but NO ischemic symptoms and troponins negative - although he mentioned vague episode of chest pain that occurred a few weeks before this admission he has presumed CAD (numerous CAD risk factors, etc) but no catheterization to definitively diagnose such no ischemic symptoms while hospitalized (11) Severe pulmonary hypertension: Plan: cont night-time CPAP (12) Permanent atrial fibrillation: Plan: S/p single-chamber pacer placement 2010. HOLD Pradaxa 75mg BID due to recent rectal bleeding. Is not on BB or CCB therapy at baseline. (13) Parkinson's disease: Plan: Continue Sinemet. Appreciate speech therapy eval -- > no dysphagia seen. Video swallow normal. (14) PAD (peripheral artery disease): Plan: Continue simvastatin and ezetimibe Holding plavix due to GI bleeding (15) Hypertension: Plan: Continue amlodipine, clonidine. Lower latter dosing from TID to BID. (16) Hypothyroidism: Plan: Continue levothyroxine. TSH earlier in 2021 wnl. (17) Anemia: Plan: 2nd to CKD, acute blood loss anemia from lower GI bleeding, etc. H/H acceptable today (18) Apnea, sleep: Plan: CPAP at night. (19) Chronic kidney disease, stage IV (severe): Plan: baseline CrCl 20s baseline Cr 1.8 Cr again stable today BMP in am (20) NSVT (nonsustained ventricular tachycardia): Plan: brief episode (<10 beats) several days ago -- no symptoms from such then did not have any additional episodes tele stopped recent echo with preserved EF and no LV wall motion abnormalities K wnl Mag wnl Plan remains DNR/DNI very poor prognosis see above discussions re: options for care for his acute cholecystitis very complex care coordination -- total time spent today about 90 minutes including several phone calls to [facility] in [place], family meeting today, AM rounds, discussion with palliative/gen surg, completing transfer paperwork, etc. Admission and Anticipated Discharge Date Admission Date: September 24, 2022 Subjective saw patient twice today - AM rounds, then at noon for family meeting during AM rounds he was lying very still in bed he c/o ongoing RUQ abd pain was constant all night the pain meds do help him he has had intermittent nausea mouth is very dry no dyspnea this am no cough I asked him what he wants to do regarding his gall bladder and he states "I'll do whatever you think" at noon myself, Dr Crystal from palliative care, the pt's , and the pt's son Marquis met to discuss options for care just prior to this meeting the general surgery team had met with the patient they told him he was not a good operative candidate because of his numerous medical problems during the family meeting we discussed goals of care we discussed options for treatment for his acute cholecystitis - antibiotics and IV fluids alone vs antibiotics + transfer to tertiary care for consideration of cholecystotomy tube vs palliative care only ultimately his family felt that transfer to tertiary care for consideration of a cholecystostomy tube was the best option I explained to the family what this type of tube is, who puts it in, etc we discussed that it can be a bridge to a future cholecystectomy in certain situations, but in his case it would be a palliative procedure to relieve pain, etc I did voice my concern that even if he transfers and does have a cholecystostomy tube placed it may not help his chronic failure to thrive and poor appetite (which is what he has been experiencing his entire stay as well as weeks/months prior to this hospitalization) I called and spoke with the triage officer at [facility] Mr Ramsay was ultimately accepted by Dr Kailyn Romero at [facility] I informed the pt's & son about his acceptance at [facility] Time of transfer is unknown Review of Systems Review of Systems: gen - no fevers, no chills; severe fatigue cv - no chest pain pulm - no dyspnea GI - severe RUQ abd pain; nausea; BRBPR has stopped - mack in place Physical Exam Physical Exam: gen - sickly, fatigued, but awake/alert mouth - MM cont to be dry neck - no JVD heart - irregular, s1 s2, 2/6 systolic murmur lungs - scant rales bases, good airation, no wheezing abd - very TENDER RUQ with palpation; BS+; ND; there is rebound today ext - no edema b/l, pulses 2+ b/l psych - a/o to person, place skin - no jaundice Results & Data Results & Data ([facility]) Vital Signs (Past 12 Hours) Vital Signs Temp Pulse Resp BP Pulse Ox O2 Del Method O2 Flow Rate 10/14/22 07:53 36.6 C 78 16 158/65 H 95 Nasal Cannula 4 Laboratory Results Laboratory Results - last 24 hr 10/13/22 10/13/22 10/13/22 12:22 17:06 20:35 WBC RBC Hgb Hct MCV MCH MCHC RDW Std Deviation RDW Coeff of Italo Plt Count MPV Sodium Potassium Chloride Carbon Dioxide Anion Gap BUN Creatinine Est Cr Clr Drug Dosing Est GFR ( Amer) Est GFR (Non-Af Amer) BUN/Creatinine Ratio Glucose POC Glucose 167 H 169 H 161 H Calcium Total Bilirubin AST ALT Alkaline Phosphatase C-Reactive Protein Total Protein Albumin Globulin Albumin/Globulin Ratio 10/14/22 10/14/22 10/14/22 07:23 07:23 08:04 WBC 33.47 H* RBC 3.50 L Hgb 10.9 L Hct 33.4 L MCV 95.4 MCH 31.1 MCHC 32.6 RDW Std Deviation 57.8 H RDW Coeff of Italo 18.5 H Plt Count 202 MPV 12.8 H Sodium 150 H Potassium 4.4 Chloride 113 H Carbon Dioxide 32 Anion Gap 5 BUN 45 H Creatinine 1.71 H Est Cr Clr Drug Dosing 27.8 Est GFR ( Amer) 40.3 Est GFR (Non-Af Amer) 34.7 BUN/Creatinine Ratio 26.3 H Glucose 152 H POC Glucose 170 H Calcium 9.0 Total Bilirubin 1.6 H AST 22 ALT 4 L Alkaline Phosphatase 68 C-Reactive Protein Pending Total Protein 6.1 Albumin 3.1 L Globulin 3.0 Albumin/Globulin Ratio 1.0 PG Care Time/CCT Total # of Minutes Spent Total Time Spent with Patient: Total time spent is greater than 50% in coordination of care (as documented) at patient's floor/unit and/or counseling patient: Prolonged Care Time Prolonged Care Time: Yes Total Prolonged Care Time: 90 Coding Level of Care Code 38412 SUB INP/OBS CARE 3/50MIN (25 - SIGNIFICANT, SEPARATELY IDENTIFIABLE ) Diagnoses Acute cholecystitis K81.0 Failure to thrive in adult R62.7 Severe protein-calorie malnutrition E43 Anorexia R63.0 Blood in stool K92.1 Chronic diastolic congestive heart failure I50.32 Pneumonia J18.9 COPD (chronic obstructive pulmonary disease) J44.[address] of [address] segment changes on electrocardiogram R94.31 Severe pulmonary hypertension I27.20 Permanent atrial fibrillation I48.21 Parkinson's disease G20 PAD (peripheral artery disease) I73.9 Hypertension I10 Hypothyroidism E03.9 Anemia D64.9 Apnea, sleep G47.33 Sleep apnea type: obstructive Chronic kidney disease, stage IV (severe) N18.4 NSVT (nonsustained ventricular tachycardia) I47.29 Additional Codes Prolonged Care Time - Prolonged Care Time: Yes ([id number]) (1) Apnea, sleep Sleep apnea type: obstructive Qualified Code(s): G47.33 - Obstructive sleep apnea (adult) (pediatric)
[2022-10-14] MEDS: CALCIUM 600MG + VIT D 400 IU TAB PO SCH (11:55)
[2022-10-14] MEDS: SODIUM CHLORIDE 0.45 % 1,000 ML IV SCH ×2 (12:43→22:42)
[2022-10-14] MEDS: PIPERACILLIN/TAZOBACTAM 3.375 GM in DEXTROSE 5% 100 ML IV SCH ×2 (16:05→23:53)
[2022-10-14 16:52] LABS: C Reactive Protein 29.17 mg/dl (0-0.5)
[2022-10-14] MEDS ORDERED: HYDROmorphone INJ 0.5 MG/0.5 ML SYR IV STA (19:18)
[2022-10-14] MEDS ORDERED: HYDROmorphone INJ 0.5 MG/0.5 ML SYR IV PRN (20:27)
[2022-10-14] MEDS ORDERED: cloNIDine HCL 0.1 MG TAB PO SCH (21:00)
--- NOTE | 2022-10-18 09:28 | Electrocardiogram Report ---
Test Reason : Blood Pressure : / mmHG Vent. Rate : 066 BPM Atrial Rate : 061 BPM P-R Int : 000 ms QRS Dur : 084 ms QT Int : 474 ms P-R-T Axes : 000 -02 252 degrees QTc Int : 496 ms Suspect unspecified pacemaker failure Atrial fibrillation with occasional pseudofusion Prolonged QT Abnormal ECG When compared with ECG of 02-OCT-2022 14:51, No significant change was found Confirmed by Rashawn Blankenship ([id number]) on 10/18/2022 9:27:48 AM Referred By: REFERRED SELF Confirmed By:Hong Blankenship
--- NOTE | 2022-10-27 20:13 | Discharge Summary ---
Date of Service date of admission - September 24, 2022 date of discharge - October 15, 2022 date of transfer to [facility] - October 15, 2022 Admission HPI Per Admitting Provider Jimi Ramsay is an 86-year-old male with a past medical history significant for permanent A. fib with pacemaker, HFpEF, PAD, hypertension, severe pulmonary hypertension, CKD, Parkinson's, is presenting today with 3-4 days of shortness of breath. He has not noticed any cough, nasal or sinus congestion, fever/chills, body aches, fatigue. Dry weight reported 157-158 pounds, patient has not gained more than a pound or 2 over the past several days. He did increase his Lasix from 120 mg to 160 mg without any alleviation. Shortness of breath is not better or worse with lying flat, and is present at all times, both at rest and with activity. He is not complaining of any associated chest pain, pressure, tightness or palpitations. Denies abdominal pain, nausea, vomiting. On presentation, SPO2 initially >90% on room air, however with transient dip to 87%, now 2 L NC. Otherwise vital signs are within normal limits and stable. Labs notable for WBC of 10.82, Hgb 12.7 which is about his baseline, MCV 89. Creatinine 1.86, baseline 1.72.1. BNP 837. Troponin 16.1. No electrolyte abnormalities. COVID/flu/RSV negative. CXR showed cardiomegaly and possible subtle interstitial pulmonary edema, as well as a 5.3 cm right upper lung airspace opacity favoring pneumonia versus pulmonary edema. Principal Diagnosis 1. acute cholecystitis 2. community-acquired pneumonia - resolved 3. acute/chronic diastolic CHF - decompensation resolved 4. severe protein calorie malnutrition 5. failure to thrive 6. CKD stage 4 7. COPD 8. Pulmonary HTN 9. Presumed CAD 10. Pacemaker status 11. Atrial fibrillation 12. HTN 13. Lower GI bleeding - etiology uncertain Discharge Exam gen - sickly, very weak; awake/alert mouth - MM very dry neck - no JVD heart - irregular, s1 s2, 2/6 systolic murmur lungs - scant rales bases, good airation, no wheezing abd - ongoing tenderness RUQ with palpation; BS+; ND; + rebound lower abdomen ext - no edema b/l, pulses 2+ b/l psych - a/o to person, place skin - no jaundice Discharge Data Allergies Allergy/AdvReac Type Severity Reaction Status Date / Time hydralazine AdvReac Severe anorexia,h/ Verified 08/27/22 14:25 a,nausea,pa lpitations Consultations [facility] Pulmonology [facility] Nephrology [facility] Cardiology [facility] CHF Program Referral [facility] Gastroenterology [facility] Palliative Care General Surgery PT, OT Procedures Performed Echocardiogram - EF 55-60%; moderate-severe pulmonary HTN (PA pressure 50- 60mmHg); mild-mod tricuspid regurgitation; mild mitral regurgitation; no LV wall motion abnormalities Ordered Studies Chest X-Ray 09/24/22 08:22 XR chest 1V portable CLINICAL HISTORY: Chest pain, nonspecific. Shortness of breath. COMPARISON STUDY: Chest CT August 22, 2019. Chest CT January 09, 2022. FINDINGS: Left subclavian pacer is in place. Moderate cardiomegaly is unchanged. There is no pneumothorax or pleural effusion. There may be subtle interstitial pulmonary edema. A 5.3 cm right upper lung airspace opacity is present. Minimal bibasilar opacities favor atelectasis. IMPRESSION: 1. 5.3 cm right upper lung airspace opacity. This favors a focus of pneumonia. Atypical appearance of alveolar pulmonary edema is within the differential but considered less likely. Radiographic follow-up to ensure resolution is recommended. 2. Cardiomegaly. Possible subtle interstitial pulmonary edema. ACT 112: Negative or not required by law. Electronically signed by: Xu Stiles M.D. 09/24/2022 9:[address] 09/24/22 13:49 CT OF THE CHEST WITHOUT IV CONTRAST CLINICAL HISTORY: Hypoxia. Shortness of breath. COMPARISON STUDY: Chest CT August 22, 2019 and chest radiograph September 24, 2022. CT DOSE: 523.16 mGy.cm TECHNIQUE: Axial images of the chest were obtained without IV contrast. Images were reviewed in the axial, sagittal, and coronal planes. IV contrast was not administered for this examination. Automated exposure control was utilized for the study. A dose lowering technique was utilized adhering to the principles of ALARA. FINDINGS: Left subclavian pacer is in place. Moderate cardiomegaly and coronary artery calcification is present. Mild dilatation of the central pulmonary arteries is unchanged. There is no pericardial effusion. No pneumothorax is present. Small right and trace left pleural effusions. Interlobular septal thickening indicates interstitial pulmonary edema. In addition, there are scattered alveolar opacities, greatest within the right upper lobe. No lobar consolidation is present. Lungs are suboptimally assessed due to respiratory motion. Mildly enlarged mediastinal and bilateral hilar lymph nodes are similar to chest CT of August 22, 2019. IMPRESSION: 1. Cardiomegaly with interstitial pulmonary edema. Scattered alveolar opacities, greatest within the right upper lobe. These could reflect alveolar pulmonary edema or superimposed pneumonia. 2. Small right and trace left pleural effusions. ACT 112: Negative or not required by law. Electronically signed by: Xu Stiles M.D. 09/24/2022 4:34 PM Chest X-Ray 09/28/22 07:30 XR chest 2V PA/lateral HISTORY: pneumonia/CHF - interval change COMPARISON: Chest CT 09/24/2022. FINDINGS: No pneumothorax. Small right pleural effusion persists. The heart remains mildly enlarged. Right upper and lower lobe airspace opacities have progressed. A few linear densities the left lung base remain unchanged. There is left-sided single lead pacemaker. The heart remains enlarged. IMPRESSION: Cardiomegaly with progressive right lung airspace opacities. This could represent asymmetric pulmonary edema and/or a pneumonia. ACT 112: Negative or not required by law. Electronically signed by: Phi Shaikh M.D. 09/28/2022 9:28 AM Chest X-Ray 10/01/22 07:00 XR chest 2V PA/lateral CLINICAL HISTORY: f/u Pneumonia TECHNIQUE: 2 views of the chest were obtained. Comparison: Comparison is made to chest radiograph on 05/10/2023 FINDINGS: Pacemaker is stable. Cardiomegaly is noted. The aortic arch is calcified. Interval worsening of airspace opacities in the right upper lung and stability of right lower lung and retrocardiac left airspace opacities. Small right ple ural effusion and trace left pleural effusion. IMPRESSION: Multifocal airspace opacities are again seen compatible with evolutionary changes of pneumonia. Cardiomegaly. ACT 112: Negative or not required by law. Electronically signed by: Bubba Charlton M.D. 10/01/2022 4:36 PM Gallbladder Ultrasound 10/02/22 14:19 US gallbladder CLINICAL HISTORY: anorexia,assess for cholecystitis TECHNIQUE: Multiple real-time sonographic images of the right upper quadrant were obtained. Comparison: Comparison is made to MRA 01/01/2007 FINDINGS: The liver is diffusely homogenous with normal contour and echogenicity. No focal mass lesions are seen. No intrahepatic ductal dilatation is seen. No gallstones or sludge are identified within the gallbladder. The gallbladder wall is not thickened. There is no pericholecystic fluid present. A sonographic Mckeon's sign was not elicited by the management services technician. The common duct measures 0.36 cm in diameter at the level of the hepatic artery. The visualized portions of the pancreas appear normal. The right kidney shows normal echogenicity, cortical thickness and renal contour. The right kidney shows no evidence of hydronephrosis or mass. No ascites or free fluid is seen in Barbour's pouch. Incidental note is made of a pleural effusion on the right. IMPRESSION: Right pleural effusion. No evidence of acute cholecystitis. ACT 112: Negative or not required by law. Electronically signed by: Bubba Charlton M.D. 10/02/2022 5:05 PM Chest X-Ray 10/04/22 08:29 XR chest 2V PA/lateral CLINICAL HISTORY: f/u PNA TECHNIQUE: 2 views of the chest were obtained. Comparison: Comparison is made to chest radiograph 10/01/2022 FINDINGS: Pacemaker is seen. Cardiomegaly is noted. The aortic arch is calcified. Multifocal airspace opacities are seen. Small bilateral pleural effusions are seen. IMPRESSION: Multifocal airspace opacities may represent atelectasis, pneumonia, and/or aspiration. ACT 112: Negative or not required by law. Electronically signed by: Bubba Charlton M.D. 10/04/2022 9:49 AM Renal Ultrasound 10/05/22 15:27 ULTRASOUND KIDNEYS AND BLADDER CLINICAL HISTORY: Acute renal insufficiency. COMPARISON STUDY: Abdominal radiograph dated 02/06/2007. Abdominal CT dated 02/05/2007. TECHNIQUE: Real-time, grayscale, and color flow sonography of the kidneys and bladder is performed. Images are reviewed in the transverse and longitudinal planes. FINDINGS: Kidneys: The right kidney is normal in size and echotexture. The left kidney is atrophic and echogenic. The right kidney measures 10.9 x 6.3 x 5.6 cm and the left kidney measures 8.8 x 4.2 x 3.3 cm. There is no hydronephrosis. No shadowing renal calculi are identified. There is no sonographic evidence of contour deforming renal mass lesion. No perinephric fluid is identified. Bladder: The prostate gland is enlarged. The bladder is distended and the wall is thickened/trabeculated indicating chronic outlet obstruction. Ureteral jets were not seen. IMPRESSION: 1. The right kidney is normal in size and without hydronephrosis. 2. The left kidney is atrophic and echogenic indicative of medical renal disease. 3. Prostatomegaly with evidence of chronic bladder outlet obstruction. ACT 112: Negative or not required by law. Electronically signed by: Cedrick Clements M.D. 10/05/2022 4:44 PM Videofluoroscopic Swallow 10/06/22 09:30 FL video swallow HISTORY: suspect aspiration,worsening pneumonia TECHNIQUE: Video fluoroscopic evaluation of swallowing was performed in the AP and lateral projections by the speech pathology staff. The patient is fed nectar-thick and thin liquid barium, a barium coated wafer, and barium pudding. FLUOROSCOPY TIME: 2.5 minutes. A cine loop submitted. COMPARISON STUDY: None. FINDINGS: There is normal hyoid excursion and epiglottic deflection. A left- sided pacemaker is noted. No aspiration identified. A few episodes of penetration without aspiration. [id number] vallecular residue with the thicker barium consistencies. IMPRESSION: 1. No aspiration identified. 2. Please see the speech pathologist report for detailed findings and recommendations. ACT 112: Negative or not required by law. Electronically signed by: Phi Shaikh M.D. 10/06/2022 2:24 PM Chest X-Ray 10/07/22 07:00 XR chest 1V portable HISTORY: 86 years-old Male Edema acute shortness of breath COMPARISON: October 04, 2022, chest CT September 24, 2022 TECHNIQUE: AP view of the chest FINDINGS: Cardiac silhouette is enlarged. Left subclavian pacer. Atherosclerosis of the aorta. No pneumothorax. Small pleural effusions redemonstrated along with right basilar and right midlung predominant airspace opacities, mildly improved from the most recent study. Degenerative changes of the shoulders and spine. IMPRESSION: 1. Cardiomegaly with mildly improved interstitial pulmonary edema. 2. Small pleural effusions with mild improvement of the bibasilar and right midlung predominant airspace opacities. ACT 112: Negative or not required by law. The above report was generated using voice recognition software. It may contain grammatical, syntax or spelling errors. Electronically signed by: Irvin Talley M.D. 10/07/2022 6:53 AM Abdomen/Pelvis CT 10/08/22 15:[address] WITHOUT CONTRAST CT DOSE: 623.53 mGycm HISTORY: severe anorexia, rectal bleeding TECHNIQUE: Multiaxial CT images of the abdomen and pelvis were performed without contrast. A dose lowering technique was utilized adhering to the principles of ALARA. COMPARISON STUDY: Chest CT 09/24/2022. FINDINGS: Patchy groundglass densities and interlobular septal thickening within the lung bases. This favors mild pulmonary edema. Small right and trace left pleural effusions are again noted. The heart is enlarged. A pacemaker wire is identified. Consolidation within the lower lobes posteriorly favors atelectasis from the pleural effusions. No pneumoperitoneum. No pneumatosis. No fractures identified. The unenhanced liver, spleen, adrenal glands, gallbladder, and pancreas are unremarkable. An IVC filter appears in good position. Calcified plaque within the normal caliber abdominal aorta there is a punctate stone within the right kidney. There is a severely atrophic left kidney. Possible 2.7 cm exophytic solid mass within the lower pole of the left kidney on image 200. A few subcentimeter hypodense and hyperdense right renal lesions are technically too small to characterize but favor cysts. Mild right perinephric edema. No ureteral stones. No hydronephrosis. The bladder is decompressed by Partida catheter. There is a large rectal stool ball measuring 9 cm. There is mild presacral edema and mild body wall edema. Colonic diverticulosis. No evidence for acute diverticulitis. Suboptimal evaluation for bowel pathology due to the lack of intravenous and oral contrast. Dense contrast throughout the majority of the colon results in suboptimal evaluation. Gas-filled borderline dilated loops of small bowel and stomach. These are nonspecific but favor a mild ileus. No transition point identified to suggest an obstruction. No definite bowel wall thickening. Moderate well-formed stool seen throughout the colon. IMPRESSION: 1. Patchy groundglass densities within the lung bases with interlobular septal thickening, cardiomegaly, and bilateral pleural effusions. This favors mild pul monary edema. 2. Residual dense contrast within the colon from the prior video swallow. No definite bowel wall thickening or obstruction. 3. Borderline dilated gas-filled loops of small bowel and stomach which favors a mild ileus. 4. Colonic diverticulosis. No evidence for acute diverticulitis. 5. Moderate well-formed stool seen throughout the colon. There is also a 9 cm rectal stool ball. 6. Possible 2.7 cm exophytic solid mass within the lower pole of the left kidney. Consider follow-up renal ultrasound for further evaluation. ACT 112: Negative or not required by law. Electronically signed by: Phi Shaikh M.D. 10/08/2022 5:09 PM GI Bleed Scan Nuclear Medicine 10/10/22 13:00 NM GI bleeding CLINICAL HISTORY: 86 years-old Male with lower GI bleeding; unable to perform endoscopy. Acute lower GI bleed TECHNIQUE: Following the intravenous administration of red cells labeled with 27.4 mCi of technetium-99m Ultratag, sequential abdominal images were obtained for 60 minutes. COMPARISON: CT abdomen and pelvis October 08, 2022 FINDINGS: There is no abnormal focus of labeled red cell accumulation or extravasation. There is expected activity in the blood pool. IMPRESSION: No scintigraphic evidence for active gastro intestinal bleeding. ACT 112: Negative or not required by law. The above report was generated using voice recognition software. It may contain grammatical, syntax or spelling errors. Electronically signed by: Irvin Talley M.D. 10/10/2022 7:03 PM KUB X-Ray 10/13/22 04:14 KUB HISTORY: Generalized abdominal pain COMPARISON: Abdomen and pelvis CT 10/08/2022. FINDINGS: There is contrast seen throughout the colon. Multiple colonic diverticula are noted. There are few mildly dilated gas-filled loops of small bowel seen within the abdomen. Moderate well-formed stool seen within the colon. An IVC filter is noted. Vascular stents are seen within the upper abdomen. No renal calculi. No ureteral calculi. No pneumoperitoneum or pneumatosis. IMPRESSION: 1. Moderate well-formed stool within the colon. 2. Mildly dilated gas-filled loops of small bowel. ACT 112: Negative or not required by law. Electronically signed by: Phi Shaikh M.D. 10/13/2022 8:31 AM Abdomen/Pelvis CT 10/13/22 04:[address] WITHOUT CONTRAST CT DOSE: 327.58 mGy.cm HISTORY: Generalized abdominal pain. Vomiting. TECHNIQUE: Multiaxial CT images of the abdomen and pelvis were performed without contrast. A dose lowering technique was utilized adhering to the principles of ALARA. COMPARISON STUDY: Abdomen and pelvis CT 10/08/2022. FINDINGS: Small right and trace left pleural effusions. There are patchy airsp gisselle opacities within the right lower lobe posteriorly which is new from the prior study. A pacemaker wire is noted. No pneumoperitoneum. No pneumatosis. No acute fractures identified. The heart remains enlarged. The gallbladder is distended. There is questionable mild pericholecystic inflammatory change. No gallstones by CT. The unenhanced liver, spleen, adrenal glands, and pancreas are unremarkable. A few bilateral renal hypo and hyperdense lesions again noted. Questionable 2.4 cm exophytic lesion within the lower pole the left kidney. There is a punctate right renal stone. No ureteral stones. No hydronephrosis. No retroperitoneal lymphadenopathy. Mildly ectatic abdominal aorta. Bilateral renal artery stents are noted. No retroperitoneal lymphadenopathy. The bladder is decompressed by Partida catheter. This likely accounts for the gas within the bladder lumen. Decrease within the overall stool burden within the colon and rectum. Specifically, a moderate-sized stool ball has decreased in size and now measures 4.8 cm. However, there has been interval of mild rectal wall thickening with perirectal fat stranding/edema. This is nonspecific but could represent a stercoral colitis. Colonic diverticulosis. No evidence for acute diverticulitis. There is residual contrast seen throughout the colon. Mildly dilated gas-filled loops of small bowel have improved. No pelvic free fluid. IMPRESSION: 1. The gallbladder is distended and there is questionable mild pericholecystic inflammatory change. This is new from the prior study. Consider follow-up abdominal ultrasound or HIDA scan to exclude the possibility of a developing acute cholecystitis. 2. Interval rectal wall thickening with perirectal fat stranding/edema. This is nonspecific but could represent a stercoral colitis. 3. Right-sided nephrolithiasis. No hydronephrosis. 4. Possible exophytic solid mass within the lower pole of the left kidney. Consider follow-up renal ultrasound for further evaluation. 5. Mildly dilated gas-filled loops of small bowel have improved in the interval. 6. There is a new patchy airspace opacity within the right lower lobe. This could represent a pneumonia. 7. Additional findings as described above. ACT 112: Negative or not required by law. Electronically signed by: Phi Shaikh M.D. 10/13/2022 8:45 AM Gallbladder Ultrasound 10/13/22 15:00 US gallbladder CLINICAL HISTORY: suspected developing cholecystitis COMPARISON STUDY: CT of the abdomen and pelvis performed earlier today. FINDINGS: There are no hepatic lesions. There is no biliary ductal dilatation. The common bile duct measures 5 mm in caliber. The gallbladder is moderately distended. Mild gallbladder wall thickening is noted as well as trace pericholecystic fluid. Sonographic Mckeon sign could not be assessed for. Gallbladder is partially sludge-filled. Pancreas is obscured. No right hydronephrosis is present. IMPRESSION: 1. Moderate gallbladder distention with mild wall thickening and trace pericholecystic fluid. Sludge within the gallbladder. No gallstones. Acute cholecystitis cannot be excluded. A hepatobiliary scan could be obtained as indicated. 2. No biliary ductal dilatation. 3. Obscured pancreas. ACT 112: Negative or not required by law. Electronically signed by: Xu Stiles M.D. 10/13/2022 3:33 PM Hospital Course (1) Acute cholecystitis: Late in the patient's stay he developed the acute onset of RUQ pain, leukocytosis, and mildly rising total bilirubin. CT abd/pelvis and gall bladder ultrasound showed findings suspicious for developing acute cholecystitis. IV unasyn started 10/13/22. NPO status started 10/13/22. Despite the above his leukocytosis worsened to >30 and he even seemed to have developed a mild amount of rebound on exam. Unasyn was then broadened to IV zosyn. He was a very poor surgical candidate due to his host of medical problems (pres umed CAD, pulm HTN, CHF, COPD, a.fib, etc), recent lower GI bleeding (see below), malnourishment, etc. Gen surg was consulted and they, too, felt he was a very poor operative candidate. Multiple discussions were held with the patient & his family. Discussed options for care - transitioning to palliative care/comfort care pathway VS IV antibiotics and supportive care VS IV antibiotics + Transfer to tertiary care for consideration of cholecystostomy tube placement or other intervention. The palliative care team was consulted to assist in these discussions. Patient and his family ultimately opted for transfer to tertiary [facility]. To that end [facility] was contacted and Dr Kailyn Romero accepted Mr Ramsay in transfer for ongoing care. (2) Failure to thrive in adult: Present this ENTIRE hospitalization despite maximal medical efforts to treat pulmonary issues, GI issues, etc. Has had consultation with cardiology, pulmonary, nephrology, and gastroenterology. Despite such he had little to no improvement on a global basis. Discussed in detail palliative care/hospice with pt & his /son on 10/12/22. Then, late in the PM on 10/12/22, he developed abdominal pain, followed by CT a/p AM of 10/13/22 showing signs concerning for a brewing acute cholecystitis. RUQ u/s on 10/13/22 confirmed acute cholecystitis. (3) Severe protein-calorie malnutrition: Present for weeks-months prior to this hospitalization. His weight is ~145 pounds, down from 170+ pounds during this stay. Some of this was due to volume overload, but he had not eaten the entire stay and much of this weight loss was from lack of nutrition. (4) Anorexia: despite Rx of pneumonia early in his stay he had no change in appetite. he received steroids early in the stay for COPD flare/wheezing without any improvement in appetite. aggressive medical efforts during the hospitalization did not improve his failure to thrive or anorexia. he developed lower GI bleeding in the last week of his stay - this may have been contributing to his failure to thrive. did the patient have a chronic cholecystitis even prior to this hospitalization that was contributing to his anorexia? (5) Blood in stool: developed such about 1 week prior to transfer to [facility]. He had multiple maroon-colored stools. Only had mild drop in H/H with such however. plavix/pradaxa held starting 10/08/22. etiology -- diverticular? internal hemorrhoids? AVMs? ischemia? colon ca given mildly elevated CEA level (CEA = 5)? first CT a/p (10/08/22) with diverticular disease noted; no evidence of colitis; lots of stool present on CT including large stool ball. seen by [facility] - too ill for endoscopic evaluation. nuclear bleeding scan 1/20/23 was negative for active bleeding surprisingly. 2nd CT a/p 10/13/22 concerning for developing cholecystitis. blood in stool stopped 10/12 to 10/13. (6) Chronic diastolic congestive heart failure: Patient had presented with a chief complaint of dyspnea. It was suspected he had a combination of pneumonia as well as Acute/chronic HFpEF. He was diuresed and his decompensation had seemingly resolved early in the hospital stay. However, his volume status remained clinically & radiographically overloaded despite aggressive diuresis. Despite diuresis for 2-3 weeks (and documented 20+ pound weight loss) he reported every day that his breathing was still poor. Echo 11/12: EF 50-55%, left ventricular systolic function low normal, no regional WMA, RV mildly dilated, RV systolic function normal, severe pulmonary hypertension and moderately dilated IVC, moderate tricuspid regurg. Echo this admission largely unchanged. By the time he had developed suspected acute cholecystitis he was clinically & biochemically volume contracted as evidenced by Na of 150. (7) Pneumonia: Completed 7+ days of broad-spectrum IV/PO abx including gram negative coverage with cefepime and atypical coverage with doxy early this hospitalization. despite such he never felt any better from a pulmonary standpoint. legionella urine ag was negative. biofire resp panel was negative. blood/sputum cx's negative. [id number] was POSITIVE. However, pulmonary did not feel that he had invasive fungal pneumonia. (8) COPD (chronic obstructive pulmonary disease): with mild exacerbation early in stay now resolved s/p steroids ; no wheezing in 2+ weeks PFTs 2021 with mild obstruction, poor bronchodilator response (9) Shortness of breath: thought to be a combination of both acute/chronic HFpEF and pneumonia along with mild COPD flare; chronic pulmonary HTN likely also contributes. despite aggressive diuresis/steroids/abx he continued to feel poorly from pulmonary standpoint. He was seen by cardiology/pulmonary/nephrology for management recommendations for his CHF, suspected pneumonia, etc. (10) ST segment changes on electrocardiogram: admission EKG - inferior ST changes but NO ischemic symptoms and troponins negative - although he mentioned vague episode of chest pain that occurred a few weeks before this admission he has presumed CAD (numerous CAD risk factors, etc) but no catheterization to definitively diagnose such no ischemic symptoms while hospitalized (11) Severe pulmonary hypertension: PA pressure 50-60mmHg on echo this admission (12) Permanent atrial fibrillation: S/p single-chamber pacer placement 2010. HOLDING Pradaxa 75mg BID due to recent rectal bleeding. Is not on BB or CCB therapy at baseline. (13) Parkinson's disease: Continue Sinemet. Appreciate speech therapy eval -- > no dysphagia seen. Video swallow normal. (14) PAD (peripheral artery disease): Continue simvastatin and ezetimibe Holding plavix due to GI bleeding (15) Hypertension: Continue amlodipine, clonidine. (16) Hypothyroidism: Continue levothyroxine. TSH earlier in 2021 wnl. (17) Anemia: 2nd to CKD, acute blood loss anemia from lower GI bleeding, etc. Discharge Hb was 10.9. (18) Apnea, sleep: CPAP at night. (19) Chronic kidney disease, stage IV (severe): baseline CrCl 20s baseline Cr 1.8 Discharge Cr level was 1.7 (20) NSVT (nonsustained ventricular tachycardia): brief episode (<10 beats) on 1 occasion only; did not have symptoms recent echo with preserved EF and no LV wall motion abnormalities Plan Patient is transferring to [facility] in [place], [place] for ongoing care. Total Time Total Time Spent Total Time Spent (In Minutes): 20 ( Discharge Plan Discharge Items Patient Disposition: Transfer Acute Care Hospital Reason For Visit: SHORTNESS OF BREATH Discharge Diagnosis: 1. acute cholecystitis 2. community-acquired pneumonia - resolved 3. acute/chronic diastolic CHF - diuresed and decompensation resolved 4. severe protein calorie malnutrition 5. failure to thrive 6. CKD stage 4 7. COPD 8. Pulmonary HTN 9. Presumed CAD 10. Pacemaker status 11. Atrial fibrillation on pradaxa - last dose of pradaxa was AM of 10/08/22 12. HTN 13. Lower GI bleeding - etiology uncertain; bleeding resolved 10/12/22. Pradaxa/plavix on hold since 10/08/22 Activity: As commented below Activity Comment: Bedrest Non-emergency contact: Primary Care Provider and Specialist Call non-emergency contact if: you have any medication questions Follow-up/Referrals: Chavez Young MD [Primary Care Provider] - Gaby Turcios PAXuC [Physician Thermal Cutter Helper] - 10/20/22 10:30 am Diet: Nothing by Mouth Addtl Attending Provider Instructions: Further instructions to follow after your hospital stay at [facility]. Pending Studies at Discharge: No Stand-Alone Forms: My Smart Voicemail, Smoking Cessation Skilled Items Patient informed of condition?: Yes DNR: Yes Discharge Level of Care: Other Communicable Disease: No Discharge Prognosis: Deteriorating Lines: Peripheral IV Urinary Catheter: Yes Medications and DC Order Prescriptions: Continued (DME) CPAP Machine Misc See Rx Instructions .ROUTE .MEDSUPPLY Qty: 1 0RF Rx Instructions: INCREASE CPAP TO 11CM. [facility] nitroglycerin [Nitrostat] 0.4 mg tablet, sublingual 0.4 mg buccal UD PRN (Reason: Chest Pain) Qty: 25 5RF levothyroxine 100 mcg tablet 100 mcg PO QAM Qty: 90 3RF allopurinol 100 mg tablet 200 mg PO QAM Qty: 180 3RF amlodipine 10 mg tablet 10 mg PO QAM Qty: 90 3RF (DME) CPAP Machine Misc See Dose Instructions .ROUTE .MEDSUPPLY Qty: 10 0RF Dose Instruction: As directed Rx Instructions: CPAP pressure change: 10cm H20 and mask addessment carbidopa-levodopa 25-100 mg tablet 1 tab PO TID 90 Days Qty: 270 3RF Changed clonidine HCl 0.2 mg tablet 0.2 mg PO BID Qty: 540 3RF Discontinued potassium chloride 20 mEq tablet extended release 20 meq PO DAILY Qty: 90 3RF ezetimibe-simvastatin 10-20 mg tablet 1 tab PO HS Qty: 90 3RF dabigatran etexilate 75 mg capsule 75 mg PO BID Qty: 180 3RF clopidogrel 75 mg tablet 75 mg PO QAM Qty: 90 3RF furosemide 40 mg tablet 120 mg PO QAM Qty: 270 3RF Discharge Orders: Discharge Order (Routine); Ordered 10/14/22 Ordered By: Nickolas Gamble Admission Data Admit Date/Time: 09/24/22 10:37 Attending Provider: Uriah aTm Admit Provider: Geovanny Woodruff Primary Care Provider: Chavez Young Other Providers: Shree Palacio ; [facility] ; Mis Munroe [facility] ; [place] ; Jaime Elaine ; Js Olson ; Go Maya ; Gaby Turcios ; Melo Garcia ; Carli Crystal ; Antione Bowie Other Interventions: Discharge Summary Assessment (RN) Last Done: 10/15/22 02:14 Coding Level of Care Code HOSP INP/OBS DISCH 30 MIN/LESS Diagnoses Acute cholecystitis K81.0 Failure to thrive in adult R62.7 Severe protein-calorie malnutrition E43 Anorexia R63.0 Blood in stool K92.1 Chronic diastolic congestive heart failure I50.32 Pneumonia J18.9 COPD (chronic obstructive pulmonary disease) J44.[address] of [address] segment changes on electrocardiogram R94.31 Severe pulmonary hypertension I27.20 Permanent atrial fibrillation I48.21 Parkinson's disease G20 PAD (peripheral artery disease) I73.9 Hypertension I10 Hypothyroidism E03.9 Anemia D64.9 Apnea, sleep G47.33 Sleep apnea type: obstructive Chronic kidney disease, stage IV (severe) N18.4 NSVT (nonsustained ventricular tachycardia) I47.29
== END 2022-10-15 04:34 | disposition short-term general hospital (02) | DRG 193 ==
LOC: ED 08:20 → SUATTDRO 10:37 → EDINP 10:37 → 2N 12:12 → 3W 10-09 11:02

== ENCOUNTER 2022-11-12 01:15 | Inpatient (IN) ==
[2022-11-12] MEDS ORDERED: FUROSEMIDE 40 MG/4 ML VIAL IV ONE (01:28)
--- NOTE | 2022-11-12 01:28 | Emergency Department Note ---
History of Present Illness General Chief complaint: Shortness of Breath/Dyspnea Time Seen by Provider: 11/12/22 01:17 History of Present Illness 87-year-old male presents via EMS with complaint of increased shortness of breath that started today. Patient is from the [facility] reportedly he is status post cholecystectomy and biliary stent with PEDRO drain was transferred from our facility and was at [place] and he states he was discharged last week. Patient has a history of CHF and COPD. Patient called EMS due to increased shortness of breath. Patient denies any hemoptysis denies chest pain. There are no other mitigating or alleviating factors Home Medications Medication Instructions Recorded Confirmed Type CPAP Machine #10 ea 07/13/19 09/24/22 Rx CPAP Machine #1 ea 04/24/20 09/24/22 Rx levothyroxine 100 mcg tablet 100 mcg PO QAM #90 tabs 02/11/22 11/12/22 Rx Saccharomyces boulardii 250 mg 250 mg PO QPM 11/12/22 11/12/22 History capsule (Florastor) acetaminophen 325 mg tablet 650 mg PO Q4H PRN PAIN/FEVER 11/12/22 11/12/22 History (Tylenol) allopurinol 100 mg tablet 100 mg PO QAM 11/12/22 11/12/22 History atorvastatin 80 mg tablet 80 mg PO PM 11/12/22 11/12/22 History bisacodyl 10 mg rectal suppository 10 mg NM Q OTHER DAY PRN 11/12/22 11/12/22 History Constipation calcitriol 0.5 mcg capsule 0.5 mcg PO QAM 11/12/22 11/12/22 History carbidopa 25 mg-levodopa 100 mg 1 tab PO TIDM 11/12/22 11/12/22 History tablet clindamycin HCl 300 mg capsule 300 mg PO Q6H 11/12/22 11/12/22 History clonidine HCl 0.1 mg tablet 0.1 mg PO BID 11/12/22 11/12/22 History dabigatran etexilate 75 mg capsule 75 mg PO BID 11/12/22 11/12/22 History (Pradaxa) levofloxacin 750 mg tablet 750 mg PO Q OTHER DAY 11/12/22 11/12/22 History omeprazole 40 mg capsule,delayed 40 mg PO QAM 11/12/22 11/12/22 History release tiotropium bromide 1.25 2 puff inhalation QAM 11/12/22 11/12/22 History mcg/actuation mist for inhalation (Spiriva Respimat) Allergies Allergy/AdvReac Type Severity Reaction Status Date / Time hydralazine AdvReac Severe anorexia,h/ Verified 11/12/22 01:49 a,nausea,pa lpitations Past Med/Surg History Medical History Anemia Anticoagulant long-term use Carotid artery stenosis Chronic constipation Chronic kidney disease, stage 3 (moderate) Dyslipidemia Former smoker GERD (gastroesophageal reflux disease) Gout History of DVT (deep vein thrombosis) HTN (hypertension) Hypothyroid Pacemaker (01/2021) Parkinson's disease Permanent atrial fibrillation Pleural effusion Subdural hematoma (2006) Surgical History H/O vasectomy History of appendectomy History of renal stent (2006) Right History of renal stent (2008) Left Hx of tonsillectomy S/P carotid endarterectomy (1994) S/P insertion of inferior vena caval filter Family History Father Diabetes Denies family history of Ovarian cancer Prostate cancer Myocardial infarction Breast cancer Lung cancer Colorectal cancer Stroke Social History Smoking Status: Former smoker Age Started Using Tobacco: 12; Age Quit Using Tobacco: 53; packs per day: 1; Cigarettes Per Day: 20; Second Hand Exposure: No; Hx Alcohol Use: Yes Alcohol type: beer Hx Substance Use: No Preferred Language: Thai Communication Ability: Effective Visual Impairment: No Limitations Hearing Ability: Normal Rolloff Driver Required: No Beliefs That Will Affect Care: None marital status: Current Living Situation: Spouse Current Living Situation Comment: from home current occupational status: retired Feels Safe at Home: Yes Childhood Exposure to Second-Hand Smoke: Yes during the past year weight has: remained stable Physical Activity Frequency: Daily Physical Activity Frequency Comment: walks a mile every day in nice weather Seatbelt Use: always Assistive Devices: None Review of Systems A total of 10 systems reviewed and were otherwise negative Constitutional: no fever Respiratory: + dyspnea and + dyspnea on exertion Cardiovascular: no chest pain Physical Exam Vital Signs Vital Signs - 24 hr 11/12/22 01:26 11/12/22 01:36 11/12/22 01:48 Temperature 36.1 C L Temperature Source Oral Pulse Rate 82 Pulse Rate [Right Radial] 86 Pulse Rhythm [Right Radial] Regular Pulse Strength [Right Radial] Normal Respiratory Rate 16 Respiratory Effort / Characteristics Non-Labored Spontaneous Respiratory Depth Normal Respiratory Pattern Regular Blood Pressure [Right Arm] 126/58 L Blood Pressure Mean [Right Arm] 80 Blood Pressure Position [Right Arm] Lying Pulse Oximetry 98 Oxygen Delivery Method Nasal Cannula Oxygen Flow Rate 6 Sepsis Recent Fever Within 48 Hours No Sepsis New/Unexplained Change in Mental Status No Sepsis Action Taken by Nursing No Action Required 11/12/22 02:11 11/12/22 02:38 11/12/22 02:57 Temperature Temperature Source Pulse Rate 78 Pulse Rate [Right Radial] Pulse Rhythm [Right Radial] Pulse Strength [Right Radial] Respiratory Rate Respiratory Effort / Characteristics Spontaneous Respiratory Depth Normal Respiratory Pattern Regular Blood Pressure [Right Arm] Blood Pressure Mean [Right Arm] Blood Pressure Position [Right Arm] Pulse Oximetry Oxygen Delivery Method Nasal Cannula Nasal Cannula Oxygen Flow Rate 4 4 Sepsis Recent Fever Within 48 Hours Sepsis New/Unexplained Change in Mental Status Sepsis Action Taken by Nursing GENERAL: Patient is awake alert in no acute distress patient is resting comfortably and showing no signs of anxiety EYES: The conjunctivae are clear. The pupils are round and reactive. EARS, NOSE, MOUTH AND THROAT: The nose is without any evidence of any deformity. Mucous membranes are moist. Tongue is midline. NECK: The neck is nontender and supple. RESPIRATORY: Crackles bilaterally CARDIOVASCULAR: Irregularly irregular GASTROINTESTINAL: The abdomen is soft. Abdomen is nontender. Mild distention there is a PEDRO drain present in the right flank PELVIS: The Pelvis is stable. No tenderness to palpation is noted. BACK: No midline tenderness or or step-off noted range of motion in flexion extension as well as rotation no signs of muscle spasm noted MUSCULOSKELETAL/EXTREMITIES: There is no evidence of gross deformity full range of motion is noted in the hips and shoulders. Bilateral lower extremity edema SKIN: There is no obvious evidence of any rash. There are no petechiae, pallor or cyanosis noted. NEUROLOGIC: Patient is awake alert and oriented x3 strength is symmetric PSYCH: Normal affect Course Reevaluation(s) Reevaluation #1: Patient on repeat exam is resting in no distress. He is on oxygen. Has discussed evaluation with the patient the patient's son at bedside. We will repeat his CBC as his hemoglobin has dropped significantly. Patient was given IV Lasix. Time: 02:54 Reevaluation #2: will hold transfusion d/t change in hgb >9 Time: 03:21 Consultations [facility]ation #1: [facility]: 02:54 Administered Medications Discontinued Medications Furosemide (Furosemide 40 Mg/4 Ml Vial) 40 mg IV ONE ONE Stop: 11/12/22 01:29 Last Admin: 11/12/22 01:44 Dose: 40 mg Documented By: REG Critical Care Time Critical Care Time: Yes Total Critical Care Time: 45 I have personally spent greater than 45 minutes of critical care time in the direct management of this patient. This includes bedside care, interpretation of diagnostic studies, and testing, discussion with consultants, patient, and family members, and other required patient management activities. These minutes are in excess of all separately billable procedures. Medical Decision Making Medical Records Attestation: I reviewed the patient's medical records. Home Medications Current Medication List: was personally reviewed by me Laboratory Data Attestation: I reviewed the patient's lab results. Patient has an elevated creatinine, has a low hemoglobin, has an elevated BNP 11/12/22 01:50 11/12/22 01:50 Lab Results 11/12/22 11/12/22 11/12/22 Range/Units 01:50 01:50 01:50 WBC Cancelled RBC Cancelled Hgb Cancelled Hct Cancelled MCV Cancelled MCH Cancelled MCHC Cancelled RDW Std Deviation Cancelled RDW Coeff of Italo Cancelled Plt Count Cancelled MPV Cancelled Immature Gran % (Auto) Cancelled Neut % (Auto) Cancelled Lymph % (Auto) Cancelled Brule % (Auto) Cancelled Eos % (Auto) Cancelled Baso % (Auto) Cancelled Neut # (Auto) Cancelled Lymph # (Auto) Cancelled Brule # (Auto) Cancelled Eos # (Auto) Cancelled Baso # (Auto) Cancelled Immature Gran # (Auto) Cancelled Absolute Nucleated RBC Cancelled Nucleated RBC % (auto) Cancelled Neutrophils % (Manual) Cancelled Band Neutrophils % Cancelled Lymphocytes % (Manual) Cancelled Prolymphocyte % Cancelled Reactive Lymphs % (Man) Cancelled Monocytes % (Manual) Cancelled Eosinophils % (Manual) Cancelled Basophils % (Manual) Cancelled Metamyelocytes % (Man) Cancelled Myelocytes % (Man) Cancelled Promyelocytes % (Man) Cancelled Blast Cells % (Manual) Cancelled Plasma Cell % (Manual) Cancelled Other Cells % Cancelled Nucleated RBC % Cancelled Neutrophils # (Manual) Cancelled Band Neutrophils # Cancelled Total Absolute Neuts Cancelled Lymphocytes # (Manual) Cancelled Prolymphocyte # Cancelled Reactive Lymphs # Cancelled Total Abs Lymphocytes Cancelled Monocytes # (Manual) Cancelled Eosinophils # (Manual) Cancelled Basophils # (Manual) Cancelled Metamyelocytes # (Man) Cancelled Myelocytes # (Manual) Cancelled Promyelocytes # (Man) Cancelled Blast Cells # (Man) Cancelled Plasma Cell # (Manual) Cancelled Other Cells # Cancelled Nucleated RBCs # (Man) Cancelled Hypersegmented Neuts Cancelled Hyposegmented Neuts Cancelled Hypogranular Neuts Cancelled Large Granular Lymphs Cancelled # Lrg Granular Lymphs Cancelled Hairy Cells Cancelled Smudge Cells Cancelled Toxic Granulation Cancelled Toxic Vacuolation Cancelled Dohle Bodies Cancelled Allyssa Rods Cancelled Platelet Estimate Cancelled Hypogranular Platelets Cancelled Giant Platelets Cancelled Platelet Satelliting Cancelled RBC Morphology Cancelled Polychromasia Cancelled Hypochromasia Cancelled Poikilocytosis Cancelled Basophilic Stippling Cancelled Anisocytosis Cancelled Microcytosis Cancelled Macrocytosis Cancelled Spherocytes Cancelled Pappenheimer Bodies Cancelled Sickle Cells Cancelled Target Cells Cancelled Tear Drop Cells Cancelled Ovalocytes Cancelled Stomatocytes Cancelled Bustamante-[place] Bodies Cancelled Echinocytes Cancelled Acanthocytes (Spur) Cancelled Rouleaux Cancelled RBC Agglutinates Cancelled Schistocytes Cancelled Sezary Cell Cancelled PT 14.0 H (9.0-12.0) Seconds INR 1.3 H (0.9-1.1) APTT 43.7 H (21.0-31.0) Seconds PTT Ratio 1.6 Sodium 133 L (136-145) mmol/L Potassium 3.5 (3.5-5.1) mmol/L Chloride 101 (98-107) mmol/L Carbon Dioxide 22 (21-32) mmol/L Anion Gap 10 (3-11) BUN 41 H (6-23) mg/dl Creatinine 2.02 H (0.6-1.4) mg/dl Est Cr Clr Drug Dosing 24.0 ml/min Est GFR ( Amer) 32.9 ml/min Est GFR (Non-Af Amer) 28.4 ml/min BUN/Creatinine Ratio 20.3 H (10-20) Glucose 197 H (70-99(Fasting)) mg/dl Calcium 8.9 (8.5-10.1) mg/dl Total Bilirubin 0.5 (0.2-1.0) mg/dl AST 17 (13-39) U/L ALT < 3 L (7-52) U/L Alkaline Phosphatase 154 H (34-104) U/L Troponin I High Sens 42.5 H (0-20) pg/ml B-Natriuretic Peptide (0-100) pg/ml Total Protein 6.0 (6.0-8.3) gm/dl Albumin 2.6 L (3.4-5.0) gm/dl Globulin 3.4 (2.5-4.0) gm/dl Albumin/Globulin Ratio 0.8 L (0.9-2) SARS-CoV-2, RNA, NAAT (NEGATIVE) Blood Parasites ID Cancelled Crossmatch 11/12/22 11/12/22 11/12/22 Range/Units 01:50 01:53 02:40 WBC 15.09 H RBC 3.30 L Hgb 9.6 L Hct 29.3 L MCV 88.8 MCH 29.1 MCHC 32.8 RDW Std Deviation 58.3 H RDW Coeff of Italo 18.2 H Plt Count 362 MPV 11.1 Immature Gran % (Auto) 4.6 Neut % (Auto) 82.8 Lymph % (Auto) 4.5 Brule % (Auto) 7.6 Eos % (Auto) 0.2 Baso % (Auto) 0.3 Neut # (Auto) 12.49 H Lymph # (Auto) 0.68 L Brule # (Auto) 1.15 H Eos # (Auto) 0.03 Baso # (Auto) 0.05 Immature Gran # (Auto) 0.69 H Absolute Nucleated RBC Nucleated RBC % (auto) Neutrophils % (Manual) Band Neutrophils % Lymphocytes % (Manual) Prolymphocyte % Reactive Lymphs % (Man) Monocytes % (Manual) Eosinophils % (Manual) Basophils % (Manual) Metamyelocytes % (Man) Myelocytes % (Man) Promyelocytes % (Man) Blast Cells % (Manual) Plasma Cell % (Manual) Other Cells % Nucleated RBC % Neutrophils # (Manual) Band Neutrophils # Total Absolute Neuts Lymphocytes # (Manual) Prolymphocyte # Reactive Lymphs # Total Abs Lymphocytes Monocytes # (Manual) Eosinophils # (Manual) Basophils # (Manual) Metamyelocytes # (Man) Myelocytes # (Manual) Promyelocytes # (Man) Blast Cells # (Man) Plasma Cell # (Manual) Other Cells # Nucleated RBCs # (Man) Hypersegmented Neuts Hyposegmented Neuts Hypogranular Neuts Large Granular Lymphs # Lrg Granular Lymphs Hairy Cells Smudge Cells Toxic Granulation Toxic Vacuolation Dohle Bodies Allyssa Rods Platelet Estimate Hypogranular Platelets Giant Platelets Platelet Satelliting RBC Morphology Polychromasia Hypochromasia Poikilocytosis Basophilic Stippling Anisocytosis Microcytosis Macrocytosis Spherocytes Pappenheimer Bodies Sickle Cells Target Cells Tear Drop Cells Ovalocytes Stomatocytes Bustamante-[place] Bodies Echinocytes Acanthocytes (Spur) Rouleaux RBC Agglutinates Schistocytes Sezary Cell PT (9.0-12.0) Seconds INR (0.9-1.1) APTT (21.0-31.0) Seconds PTT Ratio Sodium (136-145) mmol/L Potassium (3.5-5.1) mmol/L Chloride (98-107) mmol/L Carbon Dioxide (21-32) mmol/L Anion Gap (3-11) BUN (6-23) mg/dl Creatinine (0.6-1.4) mg/dl Est Cr Clr Drug Dosing ml/min Est GFR ( Amer) ml/min Est GFR (Non-Af Amer) ml/min BUN/Creatinine Ratio (10-20) Glucose (70-99(Fasting)) mg/dl Calcium (8.5-10.1) mg/dl Total Bilirubin (0.2-1.0) mg/dl AST (13-39) U/L ALT (7-52) U/L Alkaline Phosphatase (34-104) U/L Troponin I High Sens (0-20) pg/ml B-Natriuretic Peptide 619 H (0-100) pg/ml Total Protein (6.0-8.3) gm/dl Albumin (3.4-5.0) gm/dl Globulin (2.5-4.0) gm/dl Albumin/Globulin Ratio (0.9-2) SARS-CoV-2, RNA, NAAT (NEGATIVE) Blood Parasites ID Crossmatch See Detail 11/12/22 Range/Units Unknown WBC RBC Hgb Hct MCV MCH MCHC RDW Std Deviation RDW Coeff of Italo Plt Count MPV Immature Gran % (Auto) Neut % (Auto) Lymph % (Auto) Brule % (Auto) Eos % (Auto) Baso % (Auto) Neut # (Auto) Lymph # (Auto) Brule # (Auto) Eos # (Auto) Baso # (Auto) Immature Gran # (Auto) Absolute Nucleated RBC Nucleated RBC % (auto) Neutrophils % (Manual) Band Neutrophils % Lymphocytes % (Manual) Prolymphocyte % Reactive Lymphs % (Man) Monocytes % (Manual) Eosinophils % (Manual) Basophils % (Manual) Metamyelocytes % (Man) Myelocytes % (Man) Promyelocytes % (Man) Blast Cells % (Manual) Plasma Cell % (Manual) Other Cells % Nucleated RBC % Neutrophils # (Manual) Band Neutrophils # Total Absolute Neuts Lymphocytes # (Manual) Prolymphocyte # Reactive Lymphs # Total Abs Lymphocytes Monocytes # (Manual) Eosinophils # (Manual) Basophils # (Manual) Metamyelocytes # (Man) Myelocytes # (Manual) Promyelocytes # (Man) Blast Cells # (Man) Plasma Cell # (Manual) Other Cells # Nucleated RBCs # (Man) Hypersegmented Neuts Hyposegmented Neuts Hypogranular Neuts Large Granular Lymphs # Lrg Granular Lymphs Hairy Cells Smudge Cells Toxic Granulation Toxic Vacuolation Dohle Bodies Allyssa Rods Platelet Estimate Hypogranular Platelets Giant Platelets Platelet Satelliting RBC Morphology Polychromasia Hypochromasia Poikilocytosis Basophilic Stippling Anisocytosis Microcytosis Macrocytosis Spherocytes Pappenheimer Bodies Sickle Cells Target Cells Tear Drop Cells Ovalocytes Stomatocytes Bustamante-[place] Bodies Echinocytes Acanthocytes (Spur) Rouleaux RBC Agglutinates Schistocytes Sezary Cell PT (9.0-12.0) Seconds INR (0.9-1.1) APTT (21.0-31.0) Seconds PTT Ratio Sodium (136-145) mmol/L Potassium (3.5-5.1) mmol/L Chloride (98-107) mmol/L Carbon Dioxide (21-32) mmol/L Anion Gap (3-11) BUN (6-23) mg/dl Creatinine (0.6-1.4) mg/dl Est Cr Clr Drug Dosing ml/min Est GFR ( Amer) ml/min Est GFR (Non-Af Amer) ml/min BUN/Creatinine Ratio (10-20) Glucose (70-99(Fasting)) mg/dl Calcium (8.5-10.1) mg/dl Total Bilirubin (0.2-1.0) mg/dl AST (13-39) U/L ALT (7-52) U/L Alkaline Phosphatase (34-104) U/L Troponin I High Sens (0-20) pg/ml B-Natriuretic Peptide (0-100) pg/ml Total Protein (6.0-8.3) gm/dl Albumin (3.4-5.0) gm/dl Globulin (2.5-4.0) gm/dl Albumin/Globulin Ratio (0.9-2) SARS-CoV-2, RNA, NAAT NEGATIVE (NEGATIVE) Blood Parasites ID Crossmatch Imaging Data Attestation: I personally reviewed and interpreted this imaging study as follows: My Impression: Chest x-ray interpreted by me right pleural effusion, CHF, pacer, changed from September 2022 ECG Data Attestation: I personally reviewed and interpreted this ECG as follows: Additional Comments: EKG interpreted by me atrial fibrillation rate of 83 poor R wave progression the precordium there is ST segment depression in V5 and V6 with T wave inversions in V5 and V6 there is no obvious ST segment elevation there is a normal axis MDM Narrative Medical decision making differential diagnosis includes CHF, COPD, pneumonia, pleural effusion, cardiac event cardiac dysrhythmia Plan is to check labs, EKG, chest x-ray External medical records were reviewed from [facility] Patient has a large pleural effusion on the right side, patient was given IV Lasix, the patient had a low hemoglobin we are repeating, the patient was typed and crossed. Patient has significant risk for morbidity and mortality This case was discussed with the [facility] hospitalist for admission for pleural effusion anemia elevated creatinine hypoxia Impression & Plan Acute dyspnea, Hypoxia, CHF (congestive heart failure), Pleural effusion, Anemia, Acute renal insufficiency Discharge Plan Visit Data Chief Complaint: Shortness of Breath/Dyspnea ED Provider: Nabil Brown Discharge Problem: Acute dyspnea, Hypoxia, CHF (congestive heart failure), Pleural effusion, Anemia, Acute renal insufficiency Patient Disposition: Admitted As Inpatient Forms Stand Alone Forms: My [facility] Prescriptions Prescriptions: No Action (DME) CPAP Machine Misc See Rx Instructions .ROUTE .MEDSUPPLY Qty: 1 0RF Rx Instructions: INCREASE CPAP TO 11CM. [facility] levothyroxine 100 mcg tablet 100 mcg PO QAM Qty: 90 3RF (DME) CPAP Machine Misc See Dose Instructions .ROUTE .MEDSUPPLY Qty: 10 0RF Dose Instruction: As directed Rx Instructions: CPAP pressure change: 10cm H20 and mask addessment atorvastatin 80 mg Tablet 80 mg PO PM Rx Instructions: TAKES Q AFTERNOON clonidine HCl 0.1 mg Tablet 0.1 mg PO BID acetaminophen [Tylenol] 325 mg Tablet 650 mg PO Q4H MDD 3 GRAMS/24 HOURS PRN (Reason: PAIN/FEVER) clindamycin HCl 300 mg Capsule 300 mg PO Q6H Rx Instructions: STARTED 11/11/22 FOR 8 DAYS. omeprazole 40 mg Capsule,Delayed Release(Dr/Ec) 40 mg PO QAM bisacodyl 10 mg Suppository 10 mg NM Q OTHER DAY PRN (Reason: Constipation) calcitriol 0.5 mcg Capsule 0.5 mcg PO QAM levofloxacin [Levaquin] 750 mg Tablet 750 mg PO Q OTHER DAY Rx Instructions: STARTED 11/10/22 FOR 5 DOSES, ENDS 11/18/22 Saccharomyces boulardii [Florastor] 250 mg Capsule 250 mg PO QPM Rx Instructions: STARTED 11/11/22 FOR 30 DAYS. dabigatran etexilate [Pradaxa] 75 mg Capsule 75 mg PO BID Spiriva Respimat 1.25 mcg/actuation Mist 2 puff INHALATION QAM allopurinol 100 mg tablet 100 mg PO QAM carbidopa-levodopa 25-100 mg tablet 1 tab PO TIDM Referrals Referrals: Noy Abebe [Primary Care Provider] -
[2022-11-12 02:29] LABS: Anion Gap 10 (3-11); BUN Creatinine Ratio 20.3 (10-20); Blood Urea Nitrogen 41 mg/dl (6-23); Calcium 8.9 mg/dl (8.5-10.1); Carbon Dioxide 22 mmol/L (21-32); Chloride 101 mmol/L (98-107); Est GFR (African American) 32.9 ml/min; Est GFR (Non-African American) 28.4 ml/min; Glucose 197 mg/dl (70-99(Fasting)); Potassium 3.5 mmol/L (3.5-5.1); Sodium 133 mmol/L (136-145)
[2022-11-12 02:32] LABS: Alanine Aminotransferase < 3 U/L (7-52); Albumin Globulin Ratio 0.8 (0.9-2); Albumin Level 2.6 gm/dl (3.4-5.0); Alkaline Phosphatase 154 U/L (34-104); Aspartate Aminotransferase 17 U/L (13-39); Bilirubin,Total 0.5 mg/dl (0.2-1.0); Globulin 3.4 gm/dl (2.5-4.0)
[2022-11-12 02:36] LABS: Troponin I High Sensitivity 42.5 pg/ml (0-20)
[2022-11-12] MEDS ORDERED: SODIUM CHLORIDE 0.9% 250 ML IV PRN (02:37)
[2022-11-12 02:50] LABS: INR 1.3 (0.9-1.1); Partial Thromboplastin Ratio 1.6; Partial Thromboplastin Time 43.7 Seconds (21.0-31.0)
[2022-11-12 02:52] LABS: Basophils # (auto) 0.05 K/uL (0-0.2); Basophils % (auto) 0.3 %; Eosinophils # (auto) 0.03 K/uL (0-0.50); Eosinophils % (auto) 0.2 %; Hematocrit (blood only) 29.3 % (42.0-52.0); Hemoglobin 9.6 g/dl (14.0-18.0); Immature Granulocytes # (auto) 0.69 K/uL (0.01-0.20); Immature Granulocytes % (auto) 4.6 %; Lymphocytes # (auto) 0.68 K/uL (1.2-3.4); Lymphocytes % (auto) 4.5 %; Mean Corpuscular Hemoglobin 29.1 pg (25.0-34.0); Mean Corpuscular Hgb Conc 32.8 g/dL (32.0-36.0); Mean Corpuscular Volume 88.8 fL (80.0-100.0); Mean Platelet Volume 11.1 fL (9.4-12.4); Monocytes # (auto) 1.15 K/uL (0.11-0.59); Monocytes % (auto) 7.6 %; Neutrophils # (auto) 12.49 K/uL (1.40-6.50); Neutrophils % (auto) 82.8 %; Platelet Count 362 K/uL (130-400); RDW Coefficient of Variation 18.2 % (11.5-14.5); RDW Standard Deviation 58.3 fL (36.4-46.3); White Blood Count 15.09 K/ul (4.8-10.8)
--- NOTE | 2022-11-12 03:56 | History & Physical Report ---
Date of Service November 12, 2022 Assessment & Plan (1) Breath shortness: Plan: Most likely multifactorial. Patient with evidence of volume overload on physical exam to include edema, right-sided pleural effusion, mild elevation of BNP and troponin. He was given Lasix 40 mg IV in the ER and has urinated once since receiving this medication. Patient had echo in during his most recent hospital stay which revealed EF of 50 to 54% and mild pulmonary hypertension. Check CT chest Continue Lasix 40 mg IV daily Monitor intake and output Monitor daily weights Continue supplemental oxygen as needed Trend troponin (2) COPD (chronic obstructive pulmonary disease): Plan: Patient with some end expiratory wheezing appreciated in bilateral lung milan. He denies cough or sputum production DuoNeb every 4 hours Albuterol every 2 hours as needed (3) Dyslipidemia: Plan: Chronic. Stable. Continue atorvastatin 80 mg p.o. every afternoon (4) Parkinson's disease: Plan: Chronic. Stable. Continue carbidopa levodopa 1 tab p.o. 3 times daily (5) GERD (gastroesophageal reflux disease): Plan: Chronic. Protonix 40 mg p.o. daily (6) Permanent atrial fibrillation: Plan: Rate controlled. Patient is anticoagulated on Pradaxa 75 mg p.o. twice daily is not on any rate controlling agents at this time Continue Pradaxa 75 mg p.o. twice daily Telemetry monitoring (7) Hypothyroidism: Plan: Chronic. Stable. Last TSH = 3.139 on 06/24/2022. Continue Synthroid 100 mcg p.o. daily (8) Hypertension: Plan: Blood pressure appropriately controlled at present Continue clonidine 0.1 mg p.o. twice daily Continue to monitor Continue to hold patient's amlodipine (9) Apnea, sleep: Plan: Chronic. Patient reports compliance with his home CPAP CPAP at 11 cmH2O nightly (10) Severe protein-calorie malnutrition: Plan: As noted during previous hospitalization, patient with persistent failure to thrive in the adult. He has been seen by palliative care team to assist with management of his symptoms. Patient reports that he has not been able to eat a decent meal for over 3 weeks due to lack of appetite. Discussed with him that this is most likely multifactorial, combination of his recent illness and hospitalization as well as age. Patient's anorexia was addressed during his previous hospital stay. Encourage oral intake. Will order heart healthy diet, mechanical soft Boost (ernst flavored preferred) twice daily Consider Remeron for appetite stimulation F/E/Ndiuresis as above with Lasix 40 mg IV daily, monitor electrolytes and replete as needed, heart healthy diet as tolerated Prophylaxiscontinue patient's Pradaxa 75 mg p.o. twice daily CodeDNR/DNI per discussion with patient Dispositionadmit to medical with telemetry History of Present Illness Chief Complaint: shortness of breath Primary Care Provider: [facility] Jimi Ramsay is an 87-year-old male with history of atrial fibrillation on Pradaxa anticoagulation, hypertension, GERD, hyperlipidemia and CKD presenting with progressive shortness of breath and poor appetite. Patient was seen admitted to [facility] from 09/24/2022 - 10/15/2022 after presenting with shortness of breath. Patient was initially treated for pneumonia and acute on chronic HFpEF exacerbation. Late in his hospitalization he developed acute right upper quadrant pain. He was found to have acute cholecystitis. He was treated with IV Unasyn then Zosyn. Despite IV antibiotics he continued to decline therefore was transferred to [facility]. At [facility] patient was found to have acute cholecystitis with a necrotic gallbladder status post cholecystectomy (10/15/2022) complicated by bile leak and development of biloma. Patient had an ERCP with deployment of drainage stent in the common bile duct on 10/21/2022. He was discharged to [facility] on 10/31/2022. Patient reports that since then he has had 2 weeks of poor appetite, decreased oral intake, generalized weakness. Also with progressive shortness of breath. He denies fever, chills, chest pain, palpitations, cough. Denies abdominal pain, nausea, vomiting, diarrhea, constipation. No urinary complaints. No additional complaints at this time. In the ER patient afebrile, hemodynamically stable. He is presently saturating 90% on 6 L of oxygen by nasal cannula. ER course: Lasix 40 mg IV Allergies Allergy/AdvReac Type Severity Reaction Status Date / Time hydralazine AdvReac Severe anorexia,h/ Verified 11/12/22 01:49 a,nausea,pa lpitations Home Medications Medication Instructions Recorded Confirmed Type CPAP Machine #10 ea 07/13/19 09/24/22 Rx CPAP Machine #1 ea 04/24/20 09/24/22 Rx levothyroxine 100 mcg tablet 100 mcg PO QAM #90 tabs 02/11/22 11/12/22 Rx Saccharomyces boulardii 250 mg 250 mg PO QPM 11/12/22 11/12/22 History capsule (Florastor) acetaminophen 325 mg tablet 650 mg PO Q4H PRN PAIN/FEVER 11/12/22 11/12/22 History (Tylenol) allopurinol 100 mg tablet 100 mg PO QAM 11/12/22 11/12/22 History atorvastatin 80 mg tablet 80 mg PO PM 11/12/22 11/12/22 History bisacodyl 10 mg rectal suppository 10 mg [place] Q OTHER DAY PRN 11/12/22 11/12/22 History Constipation calcitriol 0.5 mcg capsule 0.5 mcg PO QAM 11/12/22 11/12/22 History carbidopa 25 mg-levodopa 100 mg 1 tab PO TIDM 11/12/22 11/12/22 History tablet clindamycin HCl 300 mg capsule 300 mg PO Q6H 11/12/22 11/12/22 History clonidine HCl 0.1 mg tablet 0.1 mg PO BID 11/12/22 11/12/22 History dabigatran etexilate 75 mg capsule 75 mg PO BID 11/12/22 11/12/22 History (Pradaxa) levofloxacin 750 mg tablet 750 mg PO Q OTHER DAY 11/12/22 11/12/22 History omeprazole 40 mg capsule,delayed 40 mg PO QAM 11/12/22 11/12/22 History release tiotropium bromide 1.25 2 puff inhalation QAM 11/12/22 11/12/22 History mcg/actuation mist for inhalation (Spiriva Respimat) Past Med/Surg History Medical History Anemia Anticoagulant long-term use Carotid artery stenosis Chronic constipation Chronic kidney disease, stage 3 (moderate) Dyslipidemia Former smoker GERD (gastroesophageal reflux disease) Gout History of DVT (deep vein thrombosis) HTN (hypertension) Hypothyroid Pacemaker (01/2021) Parkinson's disease Permanent atrial fibrillation Pleural effusion Subdural hematoma (2006) Surgical History H/O vasectomy History of appendectomy History of renal stent (2006) Right History of renal stent (2008) Left Hx of tonsillectomy S/P carotid endarterectomy (1994) S/P insertion of inferior vena caval filter Family History Father Diabetes Denies family history of Ovarian cancer Prostate cancer Myocardial infarction Breast cancer Lung cancer Colorectal cancer Stroke Social History (Updated 11/12/22 @ 03:40 by Kailyn Norman DO) Smoking Status: Former smoker Age Started Using Tobacco: 12; Age Quit Using Tobacco: 53; packs per day: 1; Cigarettes Per Day: 20; Second Hand Exposure: No; Hx Alcohol Use: Yes Alcohol type: beer Hx Substance Use: No Preferred Language: Amharic Communication Ability: Effective Visual Impairment: No Limitations Hearing Ability: Normal Health Commissioner Required: No Beliefs That Will Affect Care: None marital status: Current Living Situation: Spouse Current Living Situation Comment: from home current occupational status: retired Feels Safe at Home: Yes Childhood Exposure to Second-Hand Smoke: Yes during the past year weight has: remained stable Physical Activity Frequency: Daily Physical Activity Frequency Comment: walks a mile every day in nice weather Seatbelt Use: always Assistive Devices: None Review of Systems 2 Review of Systems: All systems reviewed & are unremarkable except as noted in HPI & below Physical Exam Physical Exam: General: patient frail, chronically ill in appearance, tachypneic with mild abdominal retractions, answers questions appropriately Skin: warm, dry, bandage present on left lower extremity HEENT: NC/AT, PERRL, EOMI, anicteric sclera, conjunctiva without injection, external ear normal to inspection and nontender, nares patent, moist mucus membranes, dentition intact, no oropharyngeal lesions, neck supple, trachea midline, no LAD, no thyromegaly, no JVD Heart: +S1/S2, irregularly irregular, no m/r/g Lungs: Patient tachypneic, mild abdominal retractions, is speaking in complete sentences, diminished breath sounds in bilateral bases, crackles present in right lung, faint end expiratory wheezing bilaterally Abd: +BS, soft, NT/ND, ventral hernia present, soft and reducible, PEDRO drain in place, no masses/organomegaly/ascites Ext: warm, 2+ pulses in UE/LE bilaterally, no clubbing/cyanosis, 2+ pitting edema bilateral lower extremities Neuro: nonfocal, patient AA&O x 4, speech intact, no facial droop, moving all extremities on command with equal strength 5/5 Results & Data Results & Data ([facility]) Vital Signs (Past 12 Hours) Vital Signs Temp Pulse Pulse Resp BP Pulse Ox O2 Del Method 11/12/22 02:38 Nasal Cannula 11/12/22 02:11 78 Nasal Cannula 11/12/22 01:48 82 11/12/22 01:36 36.1 C L 86 16 126/58 L 98 Nasal Cannula O2 Flow Rate 11/12/22 02:38 4 11/12/22 02:11 4 11/12/22 01:48 11/12/22 01:36 6 Laboratory Results Laboratory Results WBC 15.09 K/ul (4.8-10.8) H 11/12/22 02:40 RBC 3.30 M/uL (4.70-6.10) L 11/12/22 02:40 Hgb 9.6 g/dl (14.0-18.0) L 11/12/22 02:40 Hct 29.3 % (42.0-52.0) L 11/12/22 02:40 MCV 88.8 fL (80.0-100.0) 11/12/22 02:40 MCH 29.1 pg (25.0-34.0) 11/12/22 02:40 MCHC 32.8 g/dL (32.0-36.0) 11/12/22 02:40 RDW Std Deviation 58.3 fL (36.4-46.3) H 11/12/22 02:40 RDW Coeff of [place] 18.2 % (11.5-14.5) H 11/12/22 02:40 Plt Count 362 K/uL (130-400) 11/12/22 02:40 MPV 11.1 fL (9.4-12.4) 11/12/22 02:40 Immature Gran % (Auto) 4.6 % 11/12/22 02:40 Neut % (Auto) 82.8 % 11/12/22 02:40 Lymph % (Auto) 4.5 % 11/12/22 02:40 [place] % (Auto) 7.6 % 11/12/22 02:40 Eos % (Auto) 0.2 % 11/12/22 02:40 Baso % (Auto) 0.3 % 11/12/22 02:40 Neut # (Auto) 12.49 K/uL (1.40-6.50) H 11/12/22 02:40 Lymph # (Auto) 0.68 K/uL (1.2-3.4) L 11/12/22 02:40 [place] # (Auto) 1.15 K/uL (0.11-0.59) H 11/12/22 02:40 Eos # (Auto) 0.03 K/uL (0-0.50) 11/12/22 02:40 Baso # (Auto) 0.05 K/uL (0-0.2) 11/12/22 02:40 Immature Gran # (Auto) 0.69 K/uL (0.01-0.20) H 11/12/22 02:40 Absolute Nucleated RBC Cancelled 11/12/22 01:50 Nucleated RBC % (auto) Cancelled 11/12/22 01:50 Neutrophils % (Manual) Cancelled 11/12/22 01:50 Band Neutrophils % Cancelled 11/12/22 01:50 Lymphocytes % (Manual) Cancelled 11/12/22 01:50 Prolymphocyte % Cancelled 11/12/22 01:50 Reactive Lymphs % (Man) Cancelled 11/12/22 01:50 Monocytes % (Manual) Cancelled 11/12/22 01:50 Eosinophils % (Manual) Cancelled 11/12/22 01:50 Basophils % (Manual) Cancelled 11/12/22 01:50 Metamyelocytes % (Man) Cancelled 11/12/22 01:50 Myelocytes % (Man) Cancelled 11/12/22 01:50 Promyelocytes % (Man) Cancelled 11/12/22 01:50 Blast Cells % (Manual) Cancelled 11/12/22 01:50 Plasma Cell % (Manual) Cancelled 11/12/22 01:50 Other Cells % Cancelled 11/12/22 01:50 Nucleated RBC % Cancelled 11/12/22 01:50 Neutrophils # (Manual) Cancelled 11/12/22 01:50 Band Neutrophils # Cancelled 11/12/22 01:50 Total Absolute Neuts Cancelled 11/12/22 01:50 Lymphocytes # (Manual) Cancelled 11/12/22 01:50 Prolymphocyte # Cancelled 11/12/22 01:50 Reactive Lymphs # Cancelled 11/12/22 01:50 Total Abs Lymphocytes Cancelled 11/12/22 01:50 Monocytes # (Manual) Cancelled 11/12/22 01:50 Eosinophils # (Manual) Cancelled 11/12/22 01:50 Basophils # (Manual) Cancelled 11/12/22 01:50 Metamyelocytes # (Man) Cancelled 11/12/22 01:50 Myelocytes # (Manual) Cancelled 11/12/22 01:50 Promyelocytes # (Man) Cancelled 11/12/22 01:50 Blast Cells # (Man) Cancelled 11/12/22 01:50 Plasma Cell # (Manual) Cancelled 11/12/22 01:50 Other Cells # Cancelled 11/12/22 01:50 Nucleated RBCs # (Man) Cancelled 11/12/22 01:50 Hypersegmented Neuts Cancelled 11/12/22 01:50 Hyposegmented Neuts Cancelled 11/12/22 01:50 Hypogranular Neuts Cancelled 11/12/22 01:50 Large Granular Lymphs Cancelled 11/12/22 01:50 # Lrg Granular Lymphs Cancelled 11/12/22 01:50 Hairy Cells Cancelled 11/12/22 01:50 Smudge Cells Cancelled 11/12/22 01:50 Toxic Granulation Cancelled 11/12/22 01:50 Toxic Vacuolation Cancelled 11/12/22 01:50 Dohle Bodies Cancelled 11/12/22 01:50 Allyssa Rods Cancelled 11/12/22 01:50 Platelet Estimate Cancelled 11/12/22 01:50 Hypogranular Platelets Cancelled 11/12/22 01:50 Giant Platelets Cancelled 11/12/22 01:50 Platelet Satelliting Cancelled 11/12/22 01:50 RBC Morphology Cancelled 11/12/22 01:50 Polychromasia Cancelled 11/12/22 01:50 Hypochromasia Cancelled 11/12/22 01:50 Poikilocytosis Cancelled 11/12/22 01:50 Basophilic Stippling Cancelled 11/12/22 01:50 Anisocytosis Cancelled 11/12/22 01:50 Microcytosis Cancelled 11/12/22 01:50 Macrocytosis Cancelled 11/12/22 01:50 Spherocytes Cancelled 11/12/22 01:50 Pappenheimer Bodies Cancelled 11/12/22 01:50 Sickle Cells Cancelled 11/12/22 01:50 Target Cells Cancelled 11/12/22 01:50 Tear Drop Cells Cancelled 11/12/22 01:50 Ovalocytes Cancelled 11/12/22 01:50 Stomatocytes Cancelled 11/12/22 01:50 [place] Bodies Cancelled 11/12/22 01:50 Echinocytes Cancelled 11/12/22 01:50 Acanthocytes (Spur) Cancelled 11/12/22 01:50 Rouleaux Cancelled 11/12/22 01:50 RBC Agglutinates Cancelled 11/12/22 01:50 Schistocytes Cancelled 11/12/22 01:50 Sezary Cell Cancelled 11/12/22 01:50 PT 14.0 Seconds (9.0-12.0) H 11/12/22 01:50 INR 1.3 (0.9-1.1) H 11/12/22 01:50 APTT 43.7 Seconds (21.0-31.0) H 11/12/22 01:50 PTT Ratio 1.6 11/12/22 01:50 Sodium 133 mmol/L (136-145) L 11/12/22 01:50 Potassium 3.5 mmol/L (3.5-5.1) 11/12/22 01:50 Chloride 101 mmol/L (98-107) 11/12/22 01:50 Carbon Dioxide 22 mmol/L (21-32) 11/12/22 01:50 Anion Gap 10 (3-11) 11/12/22 01:50 BUN 41 mg/dl (6-23) H 11/12/22 01:50 Creatinine 2.02 mg/dl (0.6-1.4) H 11/12/22 01:50 Est Cr Clr Drug Dosing 24.0 ml/min 11/12/22 01:50 Est GFR ( Amer) 32.9 ml/min 11/12/22 01:50 Est GFR (Non-Af Amer) 28.4 ml/min 11/12/22 01:50 BUN/Creatinine Ratio 20.3 (10-20) H 11/12/22 01:50 Glucose 197 mg/dl (70-99(Fasting)) H 11/12/22 01:50 Calcium 8.9 mg/dl (8.5-10.1) 11/12/22 01:50 Total Bilirubin 0.5 mg/dl (0.2-1.0) 11/12/22 01:50 AST 17 U/L (13-39) 11/12/22 01:50 ALT < 3 U/L (7-52) L 11/12/22 01:50 Alkaline Phosphatase 154 U/L (34-104) H 11/12/22 01:50 Troponin I High Sens 42.5 pg/ml (0-20) H 11/12/22 01:50 B-Natriuretic Peptide 619 pg/ml (0-100) H 11/12/22 01:50 Total Protein 6.0 gm/dl (6.0-8.3) 11/12/22 01:50 Albumin 2.6 gm/dl (3.4-5.0) L 11/12/22 01:50 Globulin 3.4 gm/dl (2.5-4.0) 11/12/22 01:50 Albumin/Globulin Ratio 0.8 (0.9-2) L 11/12/22 01:50 SARS-CoV-2, RNA, NAAT NEGATIVE (NEGATIVE) 11/12/22 Unknown Blood Parasites ID Cancelled 11/12/22 01:50 Crossmatch See Detail 11/12/22 01:53 PG Care Time/CCT Total # of Minutes Spent Total Time Spent with Patient: Total time spent is greater than 50% in coordination of care (as documented) at patient's floor/unit and/or counseling patient: Coding Level of Care Code 34179 INT INP/OBS CARE 3/75MIN Diagnoses Breath shortness R06.02 COPD (chronic obstructive pulmonary disease) J44.9 Dyslipidemia E78.5 Parkinson's disease G20 GERD (gastroesophageal reflux disease) K21.9 Permanent atrial fibrillation I48.21 Hypothyroidism E03.9 Hypertension I10 Apnea, sleep G47.33 Sleep apnea type: obstructive Severe protein-calorie malnutrition E43 (9) Apnea, sleep Sleep apnea type: obstructive Qualified Code(s): G47.33 - Obstructive sleep apnea (adult) (pediatric)
[2022-11-12] MEDS ORDERED: bisacodyL 10 MG SUPP PR PRN (04:48)
[2022-11-12] MEDS ORDERED: ALBUTEROL 0.083% NEBU SOLN 3 ML VIAL NEB PRN (04:48)
[2022-11-12] MEDS: CLINDAMYCIN HCL 150 MG CAP PO SCH ×4 (05:52→21:19)
[2022-11-12] MEDS: LEVOTHYROXINE SODIUM 100 MCG TABLET PO SCH (05:52)
[2022-11-12] MEDS: ALBUT/IPRATROP 3MG/0.5MG NEB 3 ML VIAL NEB SCH ×5 (07:05→23:57)
--- NOTE | 2022-11-12 07:49 | Hospitalist Progress Note ---
Date of Service November 12, 2022 Assessment & Plan (1) Breath shortness: Plan: 87-year-old male with history of atrial fibrillation on Pradaxa anticoagulation, hypertension, GERD, HFpEF, hyperlipidemia and CKD presenting with progressive shortness of breath and poor appetite. #SOB #Pleural Effusion #HFpEF #Fluid Overload Most likely multifactorial. Patient with evidence of volume overload on physical exam to include edema, right-sided pleural effusion, mild elevation of BNP and troponin. He was given Lasix 40 mg IV in the ER and has urinated once since receiving this medication. Patient does have h/o pneumonia last month. Patient had echo in during his most recent hospital stay which revealed EF of 50 to 54% and mild pulmonary hypertension. - CXR: Interval progression of the moderate right pleural effusion and right perihilar opacities, mild pulmonary edema and a trace left pleural effusion persists CT chest: Large right pleural effusion, significantly increased in size since prior chest CT. Associated right lower lobe collapse and segmental right middle and upper lobe atelectasis. Continue Lasix 40 mg IV daily. However, has not produced much urine thus far and bladder scan with minimal urine. Monitor I/Os, daily weights, supplemental oxygen as needed. Trend troponin. EKG with ST depressions in anterolateral leads. - Procal 1.66. MRSA nares neg. - Pulmonology consulted -will hold Pradexa for 48 hours in anticipation for possible thoracentesis -cont. diuresis for now -cont. palliative conversation given poor prognosis #CKD stage 4 #Oliguria -Cr 2 which is near his baseline -diuresis as above, however, not producing much urine thus far -given oliguria and worsening Cr, nephrology consulted. -poor prognosis overall, palliative discussion in the works. #S/p cholecystectomy with bile leak #S/p ERCP with stent placement Late in his last hospitalization he developed acute RUQ pain and was found to have acute cholecystitis.He was treated with IV Unasyn then Zosyn.Despite IV antibiotics he continued to decline therefore was transferred to [facility].There he was found to have a necrotic gallbladder s/p cholecystectomy (10/15/2022) complicated by bile leak and development of biloma.Patient had an ERCP with deployment of drainage stent in the common bile duct on 10/21/2022. - PEDRO drain in place. Apparently drain was to be removed around today. - Drainage stent was to be removed next week. - ALP consistently elevated since cholecystectomy - Gen srug consulted -PEDRO output normal -Recommend leaving drain in given more acute issues -PEDRO drain and stent can remain for several more weeks; no urgency for removal #Severe protein calorie malnutrition As noted during previous hospitalization, patient with persistent failure to thrive in the adult. He has been seen by palliative care team to assist with management of his symptoms. Patient reports that he has not been able to eat a decent meal for over 3 weeks due to lack of appetite. Discussed with him that this is most likely multifactorial, combination of his recent illness and hospitalization as well as age. Patient's anorexia was addressed during his previous hospital stay. Encourage oral intake. Will order heart healthy diet, mechanical soft Boost (ernst flavored preferred) twice daily Consider Remeron for appetite stimulation #Pressure ulcer Reported by patient and . -wound care consulted -Turn/position q2h #COPD Patient with some end expiratory wheezing appreciated in bilateral lung milan. He denies cough or sputum production. DuoNeb every 4 hours Albuterol every 2 hours as needed #HLD Chronic. Stable. Continue atorvastatin 80mg daily #Parkinsons Chronic. Stable. Continue carbidopa levodopa #GERD Chronic. Protonix 40 mg daily #Permanent Afib Rate controlled. Patient is anticoagulated on Pradaxa 75mg bid but is not on any rate controlling agents at this time. Continue Pradaxa #Hypothyroidism Chronic. Stable. Last TSH = 3.139 on 06/24/2022. Continue Synthroid 100 mcg p.o. daily #HTN Blood pressure appropriately controlled at present Continue clonidine 0.1 mg p.o. twice daily Continue to hold patient's amlodipine #Sleep Apnea Chronic. Patient reports compliance with his home CPAP. CPAP at 11 cmH2O nightly DVT ppx: Pradaxa on hold for possible thoracentesis. SCDs for now. Consider shorter acting anticoagulant. FEN/GI: HH Code Status: DNR/DNI Dispo: med tele (2) Severe protein-calorie malnutrition: (3) History of cholecystectomy: (4) COPD (chronic obstructive pulmonary disease): (5) Dyslipidemia: (6) Parkinson's disease: (7) GERD (gastroesophageal reflux disease): (8) Permanent atrial fibrillation: (9) Hypothyroidism: (10) Hypertension: (11) Apnea, sleep: Admission and Anticipated Discharge Date Admission Date: November 12, 2022 Supervising Physician Co-Signing Physician Notes Attending attestation Pt seen and examined in concert with Dr. Rubin. In agreement with the documented findings as noted in the resident documentation with any exceptions or additions as noted here. Resting in bed with complaint of mild SOB. Family at bedside including spouse, son. On examination, S1/S2 nl RRR no MCG. Decreased BS bilateral bases R>L. Abd NT/ND BS+ve. PEDRO drain in place, scant bilious fluid. Shortness of breath with extensive pulmonary edema in the setting of HFpEF - furosemide 80mg IV without significant increase in UOP and with escalating Cr. Pulmonology consultation - would need off AC for procedure if desired, recommending diuresis at present. Will hold AC and continue diuresis TRACI - nephrology consult - tenuous renal function with significant extravascular fluid s/p cholecystectomy with drain in place - surgical consultation - will leave drain for now and monitor, CT without concern for collection at present Leukocytosis without apparent source, elevated procal - continue present clinda and levofloxacin, follow up cultures. Else see resident documentation as noted. Subjective Pt seen at bedside this morning. Still sob, same as since admission. PEDRO drain present, states it is to be taken out towards the end of Fe. Denies headache, chest pain, abd pain, constipation, diarrhea, dysuria, nausea, vomiting. Review of Systems Review of Systems: All systems reviewed & are unremarkable except as noted in HPI & below Physical Exam Physical Exam: General: frail, chronically ill in appearance, answers questions appropriately Skin: warm, dry, bandage present on left lower extremity HEENT: NC/AT, EOMI, anicteric sclera, conjunctiva without injection, moist mucus membranes, neck supple, trachea midline, no LAD, no thyromegaly, no JVD Heart: +S1/S2, irregularly irregular, no m/r/g Lungs: mild abdominal retractions, speaking in complete sentences, diminished breath sounds in bilateral bases R>L, crackles present in right lung, faint end expiratory wheezing bilaterally Abd: +BS, soft, nontender, nondistended, ventral hernia present which is soft and reducible, PEDRO drain in place, no masses/organomegaly/ascites Ext: warm, 2+ pulses in UE/LE bilaterally, no clubbing/cyanosis, 2+ pitting edema bilateral lower extremities Neuro: nonfocal, AOx3, speech intact Results & Data Results & Data ([facility]) Vital Signs (Past 12 Hours) Vital Signs Temp Pulse Pulse Resp BP BP Pulse Ox 11/12/22 07:39 72 11/12/22 07:09 74 18 94 11/12/22 06:23 69 26 H 129/57 L 96 11/12/22 04:58 11/12/22 04:58 36.4 C L 81 28 H 159/67 H 91 11/12/22 03:30 102 H 18 117/52 L 96 11/12/22 03:00 84 32 H 136/61 95 11/12/22 02:30 79 31 H 124/57 L 96 11/12/22 02:03 73 33 H 127/56 L 92 11/12/22 01:35 85 34 H 98 11/12/22 02:38 11/12/22 02:11 78 11/12/22 01:48 82 11/12/22 01:36 36.1 C L 86 16 126/58 L 98 O2 Del Method O2 Flow Rate 11/12/22 07:39 11/12/22 07:09 Nasal Cannula 4 11/12/22 06:23 Nasal Cannula 4 11/12/22 04:58 Nasal Cannula 4 11/12/22 04:58 Nasal Cannula 4 11/12/22 03:30 11/12/22 03:00 11/12/22 02:30 11/12/22 02:03 11/12/22 01:35 11/12/22 02:38 Nasal Cannula 4 11/12/22 02:11 Nasal Cannula 4 11/12/22 01:48 11/12/22 01:36 Nasal Cannula 6 Laboratory Results 11/12/22 11/12/22 11/12/22 Range/Units Unknown 07:48 07:48 WBC RBC Hgb Hct MCV MCH MCHC RDW Std Deviation RDW Coeff of Italo Plt Count MPV Immature Gran % (Auto) Neut % (Auto) Lymph % (Auto) Forest % (Auto) Eos % (Auto) Baso % (Auto) Neut # (Auto) Lymph # (Auto) Forest # (Auto) Eos # (Auto) Baso # (Auto) Immature Gran # (Auto) Absolute Nucleated RBC Nucleated RBC % (auto) Neutrophils % (Manual) Band Neutrophils % Lymphocytes % (Manual) Prolymphocyte % Reactive Lymphs % (Man) Monocytes % (Manual) Eosinophils % (Manual) Basophils % (Manual) Metamyelocytes % (Man) Myelocytes % (Man) Promyelocytes % (Man) Blast Cells % (Manual) Plasma Cell % (Manual) Other Cells % Nucleated RBC % Neutrophils # (Manual) Band Neutrophils # Total Absolute Neuts Lymphocytes # (Manual) Prolymphocyte # Reactive Lymphs # Total Abs Lymphocytes Monocytes # (Manual) Eosinophils # (Manual) Basophils # (Manual) Metamyelocytes # (Man) Myelocytes # (Manual) Promyelocytes # (Man) Blast Cells # (Man) Plasma Cell # (Manual) Other Cells # Nucleated RBCs # (Man) Hypersegmented Neuts Hyposegmented Neuts Hypogranular Neuts Large Granular Lymphs # Lrg Granular Lymphs Hairy Cells Smudge Cells Toxic Granulation Toxic Vacuolation Dohle Bodies Allyssa Rods Platelet Estimate Hypogranular Platelets Giant Platelets Platelet Satelliting RBC Morphology Polychromasia Hypochromasia Poikilocytosis Basophilic Stippling Anisocytosis Microcytosis Macrocytosis Spherocytes Pappenheimer Bodies Sickle Cells Target Cells Tear Drop Cells Ovalocytes Stomatocytes Bustamante-Olar Bodies Echinocytes Acanthocytes (Spur) Rouleaux RBC Agglutinates Schistocytes Sezary Cell PT (9.0-12.0) Seconds INR (0.9-1.1) APTT (21.0-31.0) Seconds PTT Ratio Sodium (136-145) mmol/L Potassium (3.5-5.1) mmol/L Chloride (98-107) mmol/L Carbon Dioxide (21-32) mmol/L Anion Gap (3-11) BUN (6-23) mg/dl Creatinine (0.6-1.4) mg/dl Est Cr Clr Drug Dosing ml/min Est GFR ( Amer) ml/min Est GFR (Non-Af Amer) ml/min BUN/Creatinine Ratio (10-20) Glucose (70-99(Fasting)) mg/dl Calcium (8.5-10.1) mg/dl Phosphorus (2.5-4.9) mg/dl Magnesium (1.7-2.4) mg/dl Total Bilirubin (0.2-1.0) mg/dl AST (13-39) U/L ALT (7-52) U/L Alkaline Phosphatase (34-104) U/L Troponin I High Sens 51.4 H* (0-20) pg/ml B-Natriuretic Peptide (0-100) pg/ml Total Protein (6.0-8.3) gm/dl Albumin (3.4-5.0) gm/dl Globulin (2.5-4.0) gm/dl Albumin/Globulin Ratio (0.9-2) Procalcitonin 1.66 H (0-0.5) ng/ml SARS-CoV-2, RNA, NAAT NEGATIVE (NEGATIVE) Blood Parasites ID Blood Type Antibody Screen Crossmatch 11/12/22 11/12/22 11/12/22 Range/Units 07:48 02:40 01:53 WBC 15.09 H RBC 3.30 L Hgb 9.6 L Hct 29.3 L MCV 88.8 MCH 29.1 MCHC 32.8 RDW Std Deviation 58.3 H RDW Coeff of Italo 18.2 H Plt Count 362 MPV 11.1 Immature Gran % (Auto) 4.6 Neut % (Auto) 82.8 Lymph % (Auto) 4.5 Forest % (Auto) 7.6 Eos % (Auto) 0.2 Baso % (Auto) 0.3 Neut # (Auto) 12.49 H Lymph # (Auto) 0.68 L Forest # (Auto) 1.15 H Eos # (Auto) 0.03 Baso # (Auto) 0.05 Immature Gran # (Auto) 0.69 H Absolute Nucleated RBC Nucleated RBC % (auto) Neutrophils % (Manual) Band Neutrophils % Lymphocytes % (Manual) Prolymphocyte % Reactive Lymphs % (Man) Monocytes % (Manual) Eosinophils % (Manual) Basophils % (Manual) Metamyelocytes % (Man) Myelocytes % (Man) Promyelocytes % (Man) Blast Cells % (Manual) Plasma Cell % (Manual) Other Cells % Nucleated RBC % Neutrophils # (Manual) Band Neutrophils # Total Absolute Neuts Lymphocytes # (Manual) Prolymphocyte # Reactive Lymphs # Total Abs Lymphocytes Monocytes # (Manual) Eosinophils # (Manual) Basophils # (Manual) Metamyelocytes # (Man) Myelocytes # (Manual) Promyelocytes # (Man) Blast Cells # (Man) Plasma Cell # (Manual) Other Cells # Nucleated RBCs # (Man) Hypersegmented Neuts Hyposegmented Neuts Hypogranular Neuts Large Granular Lymphs # Lrg Granular Lymphs Hairy Cells Smudge Cells Toxic Granulation Toxic Vacuolation Dohle Bodies Allyssa Rods Platelet Estimate Hypogranular Platelets Giant Platelets Platelet Satelliting RBC Morphology Polychromasia Hypochromasia Poikilocytosis Basophilic Stippling Anisocytosis Microcytosis Macrocytosis Spherocytes Pappenheimer Bodies Sickle Cells Target Cells Tear Drop Cells Ovalocytes Stomatocytes Bustamante-Olar Bodies Echinocytes Acanthocytes (Spur) Rouleaux RBC Agglutinates Schistocytes Sezary Cell PT (9.0-12.0) Seconds INR (0.9-1.1) APTT (21.0-31.0) Seconds PTT Ratio Sodium (136-145) mmol/L Potassium (3.5-5.1) mmol/L Chloride (98-107) mmol/L Carbon Dioxide (21-32) mmol/L Anion Gap (3-11) BUN (6-23) mg/dl Creatinine (0.6-1.4) mg/dl Est Cr Clr Drug Dosing ml/min Est GFR ( Amer) ml/min Est GFR (Non-Af Amer) ml/min BUN/Creatinine Ratio (10-20) Glucose (70-99(Fasting)) mg/dl Calcium (8.5-10.1) mg/dl Phosphorus 4.7 (2.5-4.9) mg/dl Magnesium 1.6 L (1.7-2.4) mg/dl Total Bilirubin (0.2-1.0) mg/dl AST (13-39) U/L ALT (7-52) U/L Alkaline Phosphatase (34-104) U/L Troponin I High Sens (0-20) pg/ml B-Natriuretic Peptide (0-100) pg/ml Total Protein (6.0-8.3) gm/dl Albumin (3.4-5.0) gm/dl Globulin (2.5-4.0) gm/dl Albumin/Globulin Ratio (0.9-2) Procalcitonin (0-0.5) ng/ml SARS-CoV-2, RNA, NAAT (NEGATIVE) Blood Parasites ID Blood Type B Positive Antibody Screen NEGATIVE Crossmatch See Detail 11/12/22 11/12/22 11/12/22 Range/Units 01:50 01:50 01:50 WBC RBC Hgb Hct MCV MCH MCHC RDW Std Deviation RDW Coeff of Italo Plt Count MPV Immature Gran % (Auto) Neut % (Auto) Lymph % (Auto) Forest % (Auto) Eos % (Auto) Baso % (Auto) Neut # (Auto) Lymph # (Auto) Forest # (Auto) Eos # (Auto) Baso # (Auto) Immature Gran # (Auto) Absolute Nucleated RBC Nucleated RBC % (auto) Neutrophils % (Manual) Band Neutrophils % Lymphocytes % (Manual) Prolymphocyte % Reactive Lymphs % (Man) Monocytes % (Manual) Eosinophils % (Manual) Basophils % (Manual) Metamyelocytes % (Man) Myelocytes % (Man) Promyelocytes % (Man) Blast Cells % (Manual) Plasma Cell % (Manual) Other Cells % Nucleated RBC % Neutrophils # (Manual) Band Neutrophils # Total Absolute Neuts Lymphocytes # (Manual) Prolymphocyte # Reactive Lymphs # Total Abs Lymphocytes Monocytes # (Manual) Eosinophils # (Manual) Basophils # (Manual) Metamyelocytes # (Man) Myelocytes # (Manual) Promyelocytes # (Man) Blast Cells # (Man) Plasma Cell # (Manual) Other Cells # Nucleated RBCs # (Man) Hypersegmented Neuts Hyposegmented Neuts Hypogranular Neuts Large Granular Lymphs # Lrg Granular Lymphs Hairy Cells Smudge Cells Toxic Granulation Toxic Vacuolation Dohle Bodies Allyssa Rods Platelet Estimate Hypogranular Platelets Giant Platelets Platelet Satelliting RBC Morphology Polychromasia Hypochromasia Poikilocytosis Basophilic Stippling Anisocytosis Microcytosis Macrocytosis Spherocytes Pappenheimer Bodies Sickle Cells Target Cells Tear Drop Cells Ovalocytes Stomatocytes Bustamante-Olar Bodies Echinocytes Acanthocytes (Spur) Rouleaux RBC Agglutinates Schistocytes Sezary Cell PT 14.0 H (9.0-12.0) Seconds INR 1.3 H (0.9-1.1) APTT 43.7 H (21.0-31.0) Seconds PTT Ratio 1.6 Sodium 133 L (136-145) mmol/L Potassium 3.5 (3.5-5.1) mmol/L Chloride 101 (98-107) mmol/L Carbon Dioxide 22 (21-32) mmol/L Anion Gap 10 (3-11) BUN 41 H (6-23) mg/dl Creatinine 2.02 H (0.6-1.4) mg/dl Est Cr Clr Drug Dosing 24.0 ml/min Est GFR ( Amer) 32.9 ml/min Est GFR (Non-Af Amer) 28.4 ml/min BUN/Creatinine Ratio 20.3 H (10-20) Glucose 197 H (70-99(Fasting)) mg/dl Calcium 8.9 (8.5-10.1) mg/dl Phosphorus (2.5-4.9) mg/dl Magnesium (1.7-2.4) mg/dl Total Bilirubin 0.5 (0.2-1.0) mg/dl AST 17 (13-39) U/L ALT < 3 L (7-52) U/L Alkaline Phosphatase 154 H (34-104) U/L Troponin I High Sens 42.5 H (0-20) pg/ml B-Natriuretic Peptide 619 H (0-100) pg/ml Total Protein 6.0 (6.0-8.3) gm/dl Albumin 2.6 L (3.4-5.0) gm/dl Globulin 3.4 (2.5-4.0) gm/dl Albumin/Globulin Ratio 0.8 L (0.9-2) Procalcitonin (0-0.5) ng/ml SARS-CoV-2, RNA, NAAT (NEGATIVE) Blood Parasites ID Blood Type Antibody Screen Crossmatch 11/12/22 Range/Units 01:50 WBC Cancelled RBC Cancelled Hgb Cancelled Hct Cancelled MCV Cancelled MCH Cancelled MCHC Cancelled RDW Std Deviation Cancelled RDW Coeff of Italo Cancelled Plt Count Cancelled MPV Cancelled Immature Gran % (Auto) Cancelled Neut % (Auto) Cancelled Lymph % (Auto) Cancelled Forest % (Auto) Cancelled Eos % (Auto) Cancelled Baso % (Auto) Cancelled Neut # (Auto) Cancelled Lymph # (Auto) Cancelled Forest # (Auto) Cancelled Eos # (Auto) Cancelled Baso # (Auto) Cancelled Immature Gran # (Auto) Cancelled Absolute Nucleated RBC Cancelled Nucleated RBC % (auto) Cancelled Neutrophils % (Manual) Cancelled Band Neutrophils % Cancelled Lymphocytes % (Manual) Cancelled Prolymphocyte % Cancelled Reactive Lymphs % (Man) Cancelled Monocytes % (Manual) Cancelled Eosinophils % (Manual) Cancelled Basophils % (Manual) Cancelled Metamyelocytes % (Man) Cancelled Myelocytes % (Man) Cancelled Promyelocytes % (Man) Cancelled Blast Cells % (Manual) Cancelled Plasma Cell % (Manual) Cancelled Other Cells % Cancelled Nucleated RBC % Cancelled Neutrophils # (Manual) Cancelled Band Neutrophils # Cancelled Total Absolute Neuts Cancelled Lymphocytes # (Manual) Cancelled Prolymphocyte # Cancelled Reactive Lymphs # Cancelled Total Abs Lymphocytes Cancelled Monocytes # (Manual) Cancelled Eosinophils # (Manual) Cancelled Basophils # (Manual) Cancelled Metamyelocytes # (Man) Cancelled Myelocytes # (Manual) Cancelled Promyelocytes # (Man) Cancelled Blast Cells # (Man) Cancelled Plasma Cell # (Manual) Cancelled Other Cells # Cancelled Nucleated RBCs # (Man) Cancelled Hypersegmented Neuts Cancelled Hyposegmented Neuts Cancelled Hypogranular Neuts Cancelled Large Granular Lymphs Cancelled # Lrg Granular Lymphs Cancelled Hairy Cells Cancelled Smudge Cells Cancelled Toxic Granulation Cancelled Toxic Vacuolation Cancelled Dohle Bodies Cancelled Allyssa Rods Cancelled Platelet Estimate Cancelled Hypogranular Platelets Cancelled Giant Platelets Cancelled Platelet Satelliting Cancelled RBC Morphology Cancelled Polychromasia Cancelled Hypochromasia Cancelled Poikilocytosis Cancelled Basophilic Stippling Cancelled Anisocytosis Cancelled Microcytosis Cancelled Macrocytosis Cancelled Spherocytes Cancelled Pappenheimer Bodies Cancelled Sickle Cells Cancelled Target Cells Cancelled Tear Drop Cells Cancelled Ovalocytes Cancelled Stomatocytes Cancelled Bustamante-Olar Bodies Cancelled Echinocytes Cancelled Acanthocytes (Spur) Cancelled Rouleaux Cancelled RBC Agglutinates Cancelled Schistocytes Cancelled Sezary Cell Cancelled PT (9.0-12.0) Seconds INR (0.9-1.1) APTT (21.0-31.0) Seconds PTT Ratio Sodium (136-145) mmol/L Potassium (3.5-5.1) mmol/L Chloride (98-107) mmol/L Carbon Dioxide (21-32) mmol/L Anion Gap (3-11) BUN (6-23) mg/dl Creatinine (0.6-1.4) mg/dl Est Cr Clr Drug Dosing ml/min Est GFR ( Amer) ml/min Est GFR (Non-Af Amer) ml/min BUN/Creatinine Ratio (10-20) Glucose (70-99(Fasting)) mg/dl Calcium (8.5-10.1) mg/dl Phosphorus (2.5-4.9) mg/dl Magnesium (1.7-2.4) mg/dl Total Bilirubin (0.2-1.0) mg/dl AST (13-39) U/L ALT (7-52) U/L Alkaline Phosphatase (34-104) U/L Troponin I High Sens (0-20) pg/ml B-Natriuretic Peptide (0-100) pg/ml Total Protein (6.0-8.3) gm/dl Albumin (3.4-5.0) gm/dl Globulin (2.5-4.0) gm/dl Albumin/Globulin Ratio (0.9-2) Procalcitonin (0-0.5) ng/ml SARS-CoV-2, RNA, NAAT (NEGATIVE) Blood Parasites ID Cancelled Blood Type Antibody Screen Crossmatch Resident Activity Tracking Resident Involvement: Resident Care Provided Care Provided: Adult Hospital Medicine (11) Apnea, sleep Sleep apnea type: obstructive Qualified Code(s): G47.33 - Obstructive sleep apnea (adult) (pediatric)
[2022-11-12] MEDS: allopurinoL 100 MG TAB PO SCH (08:15)
[2022-11-12] MEDS: CALCITRIOL 0.25 MCG CAPSULE PO SCH (08:15)
[2022-11-12] MEDS: CARBIDOPA/LEVODOPA 25/100MG TAB PO SCH ×3 (08:15→16:14)
[2022-11-12] MEDS: cloNIDine HCL 0.1 MG TAB PO SCH ×2 (08:15→21:19)
[2022-11-12] MEDS: FUROSEMIDE 40 MG/4 ML VIAL IV SCH (08:16)
[2022-11-12 08:54] LABS: Magnesium 1.6 mg/dl (1.7-2.4); Phosphorus 4.7 mg/dl (2.5-4.9)
[2022-11-12] MEDS ORDERED: DABIGATRAN ETEXILATE 75 MG CAP PO SCH (09:00)
[2022-11-12] MEDS ORDERED: MAGNESIUM SULFATE / D5W 1 GM/100 ML BAG IV ONE (09:19)
--- NOTE | 2022-11-12 10:17 | Electrocardiogram Report ---
Test Reason : Blood Pressure : / mmHG Vent. Rate : 083 BPM Atrial Rate : 059 BPM P-R Int : 000 ms QRS Dur : 090 ms QT Int : 416 ms P-R-T Axes : 000 020 -84 degrees QTc Int : 488 ms Poor data quality, interpretation may be adversely affected Atrial fibrillation Abnormal ECG Confirmed by Rashawn Blankenship ([id number]) on 11/12/2022 10:16:45 AM Referred By: [facility] Confirmed By:Hong Blankenship
--- NOTE | 2022-11-12 10:49 | XRay Report ---
XR chest 1V portable HISTORY: Chest pain, nonspecific COMPARISON: Chest 10/07/2022. FINDINGS: No pneumothorax. The heart remains enlarged. There is a left-sided single lead pacemaker. M oderate right pleural effusion and right perihilar opacities have progressed. There is mild pulmonary edema with a trace left pleural effusion. Left basilar linear densities persist. IMPRESSION: 1. Interval progression of the moderate right pleural effusion and right perihilar opacities. 2. Mild pulmonary edema and a trace left pleural effusion persists. ACT 112: Negative or not required by law. Electronically signed by: Phi Shaikh M.D. 11/12/2022 10:48 AM
[2022-11-12] MEDS: levoFLOXacin 750 MG TAB PO SCH (11:37)
--- NOTE | 2022-11-12 12:00 | CT Scan Report ---
CT OF THE CHEST WITHOUT IV CONTRAST CLINICAL HISTORY: Hypoxia. COMPARISON STUDY: Chest CT September 24, 2022. Chest radiograph November 12, 2022. CT DOSE: 235.31 mGy.cm TECHNIQUE: Axial images of the chest were obtained without IV contrast. Images were reviewed in the axial, sagittal, and coronal planes. IV contrast was not administered for this examination. Automat ed exposure control was utilized for the study. A dose lowering technique was utilized adhering to t he principles of ALARA. FINDINGS: A left subclavian pacer is in place. There is moderate cardiomegaly with extensive coronar y artery calcification. There is no pericardial effusion. A large right pleural effusion has signific antly increased in size since chest CT of September 24, 2022. There is associated right lower lobe compr essive atelectasis. Trace left pleural effusion is present. Lungs are suboptimally assessed due to re spiratory motion. Patchy airspace opacities within lungs have significantly improved since prior CT. There is no thoracic lymphadenopathy. Mild paraseptal emphysema is noted within the lung apices. No a cute fractures within the bony thorax are present. Pneumobilia is incidentally noted. IMPRESSION: 1. Large right pleural effusion, significantly increased in size since prior chest CT. Associated rig ht lower lobe collapse and segmental right middle and upper lobe atelectasis. 2. Patchy airspace opacities within lungs, significantly improved compared to prior exam. The finding s may reflect an infectious process or mild pulmonary edema. 3. Cardiomegaly. Extensive coronary artery calcification. ACT 112: Negative or not required by law. Electronically signed by: Xu Stiles M.D. 11/12/2022 11:59 AM
--- NOTE | 2022-11-12 14:37 | CT Scan Report ---
CT SCAN OF THE ABDOMEN AND PELVIS WITHOUT IV CONTRAST CLINICAL HISTORY: Leukocytosis. COMPARISON STUDY: Abdominal CT dated 10/13/2022 TECHNIQUE: CT scan of the abdomen and pelvis is performed from the lung bases to the proximal femora. Images are reviewed in the axial, sagittal, and coronal planes. IV contrast was not administered for this examination as per the referring clinician. Note that the examination was performed in signific antly suboptimal fashion without oral and IV contrast. There is also motion artifact. A dose lowering technique was utilized adhering to the principles of ALARA. CT DOSE: 329.69 mGy.cm FINDINGS: Lung bases: The heart is enlarged and without pericardial effusion. Pacemaker leads are in place. The coronary arteries are densely calcified. There is a moderate right pleural effusion with atelectasis /consolidation of the right lower lobe. Trace pleural fluid is seen on the left with left basilar sca rring/atelectasis. A small hiatal hernia is noted. Liver: The unenhanced liver is normal in size, contour, and attenuation. Pneumobilia is noted. There is no significant intrahepatic biliary ductal dilatation. There is an approximately 2.5 x 5.5 x 3.5 c m subcapsular fluid collection along the inferior right lobe seen on axial image #189. This is new fr om previous. Gallbladder: Surgically absent noting clips in the gallbladder fossa. A common bile duct stent is in place. Pneumobilia suggests patency of the stent. Spleen: Normal in size and attenuation. Pancreas: The unenhanced pancreas is atrophic and grossly unremarkable. Adrenal glands: Unremarkable. Kidneys: There is markedly asymmetric cortical atrophy of the left kidney as compared to the right. N o hydronephrosis is seen. A 2 mm nonobstructing calculus is noted on the right. There is no evidence of contour deforming renal mass lesion. Abdominal vasculature: There is advanced atherosclerotic calcification and ectasia of the abdominal a devonte. Bilateral renal artery stents are noted. An infrarenal IVC filter is in place. Bowel: There is advanced colonic diverticulosis without CT evidence of acute diverticulitis. No bowel obstruction is seen. Moderate fecal retention is noted throughout the colon. The appendix is not id entified and reported surgically absent. Peritoneum: A surgical drain is coiled along the undersurface of the liver/gallbladder fossa from a r ight lateral mid abdominal approach. There is infiltration/stranding around the course of the drain. There is no evidence of fluid collection in the gallbladder fossa on this unenhanced examination. A t iny focus of intraperitoneal gas below the right lobe of liver seen on image #194 is nonspecific and may be related to the presence of an indwelling catheter. Lymphadenopathy: None. Pelvic viscera: The prostate gland is enlarged and heterogeneous noting median lobe hypertrophy. The bladder wall is thickened/trabeculated indicating chronic outlet obstruction. There is a small fat-co ntaining left inguinal hernia. Surgical clips are noted along the spermatic cord bilaterally. Skeletal structures: The skeletal structures are osteopenic. There is mild to moderate lumbosacral sp ondylosis. No lytic or blastic lesions are seen. Soft tissues: There is anasarca of the body wall. IMPRESSION: 1. There is postoperative change from interval cholecystectomy with common bile duct stent and surgic al drain placement in the right upper quadrant as compared to the 10/13/2022 examination. 2. There is no significant intrahepatic biliary duct dilatation. Pneumobilia suggests patency of the stent. 3. A tiny focus of intraperitoneal free air in the right upper quadrant is nonspecific and likely rel ated to the presence of an indwelling drain. 4. Mild stranding along the course of the drain is nonspecific. No intraperitoneal fluid collection i s identified on this unenhanced examination. 5. There is an approximately 2.5 x 5.5 x 3.5 cm subcapsular fluid collection along the inferior right lobe of the liver. The sterility of this fluid cannot be assessed imaging. 6. Moderate right pleural effusion with atelectasis/consolidation of the right lower lobe. 7. Cardiomegaly and trace pleural fluid on the left. 8. Colonic diverticulosis without CT evidence of acute diverticulitis. 9. Body wall edema. 10. Additional findings as above. ACT 112: Negative or not required by law. Electronically signed by: Cedrick Clements M.D. 11/12/2022 2:35 PM
--- NOTE | 2022-11-12 15:02 | Pulmonary Consultation ---
Date of Consultation November 12, 2022 Assessment & Plan (1) Pleural effusion: (2) History of cholecystectomy: (3) Acute heart failure with preserved ejection fraction (HFpEF): (4) Acute respiratory failure with hypoxia: (5) Acute dyspnea: Plan Dyspnea and hypoxemia multifactorial related to acute diastolic CHF, right pleural effusion and volume overload. Agree with diuresis and monitoring urine output closely. Pradaxa will need to be on hold for 48 hours to reduce the risk of bleeding from thoracentesis. We will place a hold order for Pradaxa. Will defer starting a short acting anticoagulant to the primary team. If hypoxemia or dyspnea worsen, will consider urgent chest tube insertion/thoracentesis. Recommend ongoing palliative care discussions. Thank you for the consultation. We will continue to follow along with you. History of Present Illness Attending Physician: Bhupendra Holman MD History of Present Illness 87-year-old male with a history of A-fib on Pradaxa, hypertension, GERD, hyperlipidemia and recent cholecystectomy who presented to the hospital today due to decreased appetite and generalized weakness. Pulmonary is consulted for a moderate to large size right pleural effusion. Patient has an abdominal drain in place. He is being treated by the hospitalist service for volume overload and is receiving Lasix. Patient notes sudden dyspnea around midnight last night. Shortness of breath has improved slightly, but he requires 4 to 6 L of oxygen to maintain saturations in the low 90s. He denies any fevers or coughing. Appetite has been poor. He is profoundly weak. Allergies Allergy/AdvReac Type Severity Reaction Status Date / Time hydralazine AdvReac Severe anorexia,h/ Verified 11/12/22 01:49 a,nausea,pa lpitations Home Medications Medication Instructions Recorded Confirmed Type CPAP Machine #10 ea 07/13/19 09/24/22 Rx CPAP Machine #1 ea 04/24/20 09/24/22 Rx levothyroxine 100 mcg tablet 100 mcg PO QAM #90 tabs 02/11/22 11/12/22 Rx Saccharomyces boulardii 250 mg 250 mg PO QPM 11/12/22 11/12/22 History capsule (Florastor) acetaminophen 325 mg tablet 650 mg PO Q4H PRN PAIN/FEVER 11/12/22 11/12/22 History (Tylenol) allopurinol 100 mg tablet 100 mg PO QAM 11/12/22 11/12/22 History atorvastatin 80 mg tablet 80 mg PO PM 11/12/22 11/12/22 History bisacodyl 10 mg rectal suppository 10 mg [place] Q OTHER DAY PRN 11/12/22 11/12/22 History Constipation calcitriol 0.5 mcg capsule 0.5 mcg PO QAM 11/12/22 11/12/22 History carbidopa 25 mg-levodopa 100 mg 1 tab PO TIDM 11/12/22 11/12/22 History tablet clindamycin HCl 300 mg capsule 300 mg PO Q6H 11/12/22 11/12/22 History clonidine HCl 0.1 mg tablet 0.1 mg PO BID 11/12/22 11/12/22 History dabigatran etexilate 75 mg capsule 75 mg PO BID 11/12/22 11/12/22 History (Pradaxa) levofloxacin 750 mg tablet 750 mg PO Q OTHER DAY 11/12/22 11/12/22 History omeprazole 40 mg capsule,delayed 40 mg PO QAM 11/12/22 11/12/22 History release tiotropium bromide 1.25 2 puff inhalation QAM 11/12/22 11/12/22 History mcg/actuation mist for inhalation (Spiriva Respimat) Patient History Medical History Anemia Anticoagulant long-term use Carotid artery stenosis Chronic constipation Chronic kidney disease, stage 3 (moderate) Dyslipidemia Former smoker GERD (gastroesophageal reflux disease) Gout History of DVT (deep vein thrombosis) HTN (hypertension) Hypothyroid Pacemaker (01/2021) Parkinson's disease Permanent atrial fibrillation Pleural effusion Subdural hematoma (2006) Surgical History H/O vasectomy History of appendectomy History of renal stent (2006) Right History of renal stent (2008) Left Hx of tonsillectomy S/P carotid endarterectomy (1994) S/P insertion of inferior vena caval filter Family History Father Diabetes Denies family history of Ovarian cancer Prostate cancer Myocardial infarction Breast cancer Lung cancer Colorectal cancer Stroke Social History (Updated 11/12/22 @ 03:40 by Kailyn Norman DO) Smoking Status: Former smoker Age Started Using Tobacco: 12; Age Quit Using Tobacco: 53; packs per day: 1; Cigarettes Per Day: 20; Second Hand Exposure: No; Hx Alcohol Use: Yes Alcohol type: beer Hx Substance Use: No Preferred Language: Mongolian Communication Ability: Effective Visual Impairment: No Limitations Hearing Ability: Normal 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 Beliefs That Will Affect Care: None marital status: Current Living Situation: Spouse Current Living Situation Comment: from home current occupational status: retired Feels Safe at Home: Yes Childhood Exposure to Second-Hand Smoke: Yes during the past year weight has: remained stable Physical Activity Frequency: Daily Physical Activity Frequency Comment: walks a mile every day in nice weather Seatbelt Use: always Assistive Devices: CPAP, Oxygen - at Night, Walker and Wheelchair Review of Systems Review of Systems: All systems reviewed & are unremarkable except as noted in HPI & below Physical Exam Physical Exam: Constitutional: Patient appears to be of their stated age. Patient is in no apparent distress. Patient is well-developed. Eyes: Pupils are equal round and reactive to light. Conjunctivae are normal. Anicteric sclera. Ears nose, mouth and throat: Mallampati class 2. Normal posterior oropharynx. Uvula is midline. Neck: Trachea is midline. Visual inspection is normal. Respiratory: Crackles on the right. Prolonged phase of exhalation. No wheezes. Cardiovascular: Regular rate and rhythm. No murmurs. No edema. Gastrointestinal: Normal bowel sounds, soft, nontender and nondistended. No hepatosplenomegaly noted. Musculoskeletal: Diffusely weak. Able to move all extremities. Skin: No rashes, warm dry and intact. Neurologic: No obvious focal neurological deficits seen. Psychiatric: Alert and oriented x3 with a euthymic affect. Results & Data Results & Data ([facility]) Vital Signs (Past 12 Hours) Vital Signs Temp Pulse Pulse Resp BP BP Pulse Ox 11/12/22 11:53 36.8 C 80 22 146/62 H 94 11/12/22 11:26 75 20 93 11/12/22 09:20 11/12/22 07:57 36.9 C 73 20 146/60 H 97 11/12/22 07:39 72 11/12/22 07:09 74 18 94 11/12/22 06:23 69 26 H 129/57 L 96 11/12/22 04:58 11/12/22 04:58 36.4 C L 81 28 H 159/67 H 91 11/12/22 03:30 102 H 18 117/52 L 96 11/12/22 03:00 84 32 H 136/61 95 O2 Del Method O2 Flow Rate 11/12/22 11:53 Nasal Cannula 4 11/12/22 11:26 Nasal Cannula 5 11/12/22 09:20 Nasal Cannula 4 11/12/22 07:57 Nasal Cannula 4 11/12/22 07:39 11/12/22 07:09 Nasal Cannula 4 11/12/22 06:23 Nasal Cannula 4 11/12/22 04:58 Nasal Cannula 4 11/12/22 04:58 Nasal Cannula 4 11/12/22 03:30 11/12/22 03:00 PG Care Time/CCT Total # of Minutes Spent Total Time Spent with Patient: Total time spent is greater than 50% in coordination of care (as documented) at patient's floor/unit and/or counseling patient: Coding Level of Care Code 18728 INT INP/OBS CARE 3/75MIN Diagnoses Pleural effusion J90 History of cholecystectomy Z90.49 Acute heart failure with preserved ejection fraction (HFpEF) I50.31 Acute respiratory failure with hypoxia J96.01 Acute dyspnea R06.00
[2022-11-12] MEDS ORDERED: STAT IV Infusion **Titration per Protocol STA (15:14)
[2022-11-12] MEDS ORDERED: niCARdipine 25 MG in SODIUM CHLORIDE 0.9% 240 ML IV SCH (15:15)
--- NOTE | 2022-11-12 15:34 | Surgery Consultation ---
Date of Consultation November 12, 2022 Assessment & Plan (1) History of cholecystectomy: 10/17/2022 status post laparoscopic cholecystectomy with PEDRO drain placement in [place] history of postoperative bile leak likely from cystic duct 10/21/2022 underwent ERCP with stent placement Patient transferred to [facility] for rehab-developing severe shortness of breath and admitted to the hospital He was to have the PEDRO drain removed today Stent to be removed 11/18/2022 His PEDRO output is normal He also has an area subcapsular inferior right lobe of liver which may be old hematoma or even some bilious drainage No evidence of abscess and I would not do anything with this at this point I would leave the drain because we do not want to create any trouble with his breathing in the current state I discussed this situation with his and she would like to just try to keep him as comfortable as possible And get him through the current acute problem The PEDRO can be removed in weeks as well as the stent-there is no urgency History of Present Illness Attending Physician: Bhupendra Holman MD History of Present Illness 87-year-old male who I been asked to see who has a PEDRO drain in place Patient was admitted from [facility] where he is recuperating with severe shortness of breath, pulmonary edema, large right pleural effusion and malnutrition He was admitted to our hospital in September and on 10/15/2022 he was transferred to [facility] with what appeared to be severe acute cholecystitis On 10/17/2022 they performed a laparoscopic cholecystectomy with PEDRO drain placement for gangrenous cholecystitis He apparently had a bile leak postoperatively from the cystic duct and underwent ERCP on 10/21/2022 with stent placement He has a PEDRO drain in place and was to have it removed in [place] today but was admitted to the hospital On 11/18/2022 he was to have the stent removed Allergies Allergy/AdvReac Type Severity Reaction Status Date / Time hydralazine AdvReac Severe anorexia,h/ Verified 11/12/22 01:49 a,nausea,pa lpitations Home Medications Medication Instructions Recorded Confirmed Type CPAP Machine #10 ea 07/13/19 09/24/22 Rx CPAP Machine #1 ea 04/24/20 09/24/22 Rx levothyroxine 100 mcg tablet 100 mcg PO QAM #90 tabs 02/11/22 11/12/22 Rx Saccharomyces boulardii 250 mg 250 mg PO QPM 11/12/22 11/12/22 History capsule (Florastor) acetaminophen 325 mg tablet 650 mg PO Q4H PRN PAIN/FEVER 11/12/22 11/12/22 History (Tylenol) allopurinol 100 mg tablet 100 mg PO QAM 11/12/22 11/12/22 History atorvastatin 80 mg tablet 80 mg PO PM 11/12/22 11/12/22 History bisacodyl 10 mg rectal suppository 10 mg [place] Q OTHER DAY PRN 11/12/22 11/12/22 History Constipation calcitriol 0.5 mcg capsule 0.5 mcg PO QAM 11/12/22 11/12/22 History carbidopa 25 mg-levodopa 100 mg 1 tab PO TIDM 11/12/22 11/12/22 History tablet clindamycin HCl 300 mg capsule 300 mg PO Q6H 11/12/22 11/12/22 History clonidine HCl 0.1 mg tablet 0.1 mg PO BID 11/12/22 11/12/22 History dabigatran etexilate 75 mg capsule 75 mg PO BID 11/12/22 11/12/22 History (Pradaxa) levofloxacin 750 mg tablet 750 mg PO Q OTHER DAY 11/12/22 11/12/22 History omeprazole 40 mg capsule,delayed 40 mg PO QAM 11/12/22 11/12/22 History release tiotropium bromide 1.25 2 puff inhalation QAM 11/12/22 11/12/22 History mcg/actuation mist for inhalation (Spiriva Respimat) Patient History Medical History Anemia Anticoagulant long-term use Carotid artery stenosis Chronic constipation Chronic kidney disease, stage 3 (moderate) Dyslipidemia Former smoker GERD (gastroesophageal reflux disease) Gout History of DVT (deep vein thrombosis) HTN (hypertension) Hypothyroid Pacemaker (01/2021) Parkinson's disease Permanent atrial fibrillation Pleural effusion Subdural hematoma (2006) Surgical History H/O vasectomy History of appendectomy History of renal stent (2006) Right History of renal stent (2008) Left Hx of tonsillectomy S/P carotid endarterectomy (1994) S/P insertion of inferior vena caval filter Family History Father Diabetes Denies family history of Ovarian cancer Prostate cancer Myocardial infarction Breast cancer Lung cancer Colorectal cancer Stroke Social History (Updated 11/12/22 @ 03:40 by Kailyn Norman DO) Smoking Status: Former smoker Age Started Using Tobacco: 12; Age Quit Using Tobacco: 53; packs per day: 1; Cigarettes Per Day: 20; Second Hand Exposure: No; Hx Alcohol Use: Yes Alcohol type: beer Hx Substance Use: No Preferred Language: Nigerien Communication Ability: Effective Visual Impairment: No Limitations Hearing Ability: Normal 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 Beliefs That Will Affect Care: None marital status: Current Living Situation: Spouse Current Living Situation Comment: from home current occupational status: retired Feels Safe at Home: Yes Childhood Exposure to Second-Hand Smoke: Yes during the past year weight has: remained stable Physical Activity Frequency: Daily Physical Activity Frequency Comment: walks a mile every day in nice weather Seatbelt Use: always Assistive Devices: CPAP, Oxygen - at Night, Walker and Wheelchair Review of Systems Review of Systems: All systems reviewed & are unremarkable except as noted in HPI & below Physical Exam Physical Exam: Patient is in his bed he is awake He has oxygen in place and is very short of breath He is responsive with appropriate answers to my questions He is not having abdominal pain His abdomen is soft and he does have a PEDRO drain in place with serous drainage His extremities appear to be warm Results & Data ([facility]) Vital Signs (Past 12 Hours) Vital Signs Temp Pulse Pulse Resp BP BP Pulse Ox 11/12/22 15:23 36.5 C 78 18 143/57 H 94 11/12/22 15:05 87 22 94 11/12/22 11:53 36.8 C 80 22 146/62 H 94 11/12/22 11:26 75 20 93 11/12/22 09:20 11/12/22 07:57 36.9 C 73 20 146/60 H 97 11/12/22 07:39 72 11/12/22 07:09 74 18 94 11/12/22 06:23 69 26 H 129/57 L 96 11/12/22 04:58 11/12/22 04:58 36.4 C L 81 28 H 159/67 H 91 11/12/22 03:30 102 H 18 117/52 L 96 O2 Del Method O2 Flow Rate 11/12/22 15:23 Nasal Cannula 6 11/12/22 15:05 Nasal Cannula 6 11/12/22 11:53 Nasal Cannula 4 11/12/22 11:26 Nasal Cannula 5 11/12/22 09:20 Nasal Cannula 4 11/12/22 07:57 Nasal Cannula 4 11/12/22 07:39 11/12/22 07:09 Nasal Cannula 4 11/12/22 06:23 Nasal Cannula 4 11/12/22 04:58 Nasal Cannula 4 11/12/22 04:58 Nasal Cannula 4 11/12/22 03:30 Laboratory Results I did review his laboratories Diagnostic Findings I did review his CAT scan and films PG Care Time/CCT Total # of Minutes Spent Total Time Spent with Patient: Total time spent is greater than 50% in coordination of care (as documented) at patient's floor/unit and/or counseling patient: Coding Level of Care Code 92835 INT INP/OBS CARE 2/55MIN Diagnoses History of cholecystectomy Z90.49
[2022-11-12] MEDS: ATORVASTATIN 40 MG TAB PO SCH (16:14)
[2022-11-12] MEDS ORDERED: SODIUM CHLORIDE 0.9% 1000ML 1,000 ML IV ONE (16:52)
[2022-11-13] MEDS ORDERED: MoRPHine SULFATE 2 MG/ML CARP IV STA (03:13)
[2022-11-13] MEDS ORDERED: MoRPHine SULFATE 2 MG/ML CARP ONE (03:17)
[2022-11-13] MEDS: ALBUT/IPRATROP 3MG/0.5MG NEB 3 ML VIAL NEB SCH ×6 (03:33→22:47)
[2022-11-13 04:01] LABS: Basophils # (auto) 0.03 K/uL (0-0.2); Basophils % (auto) 0.2 %; Eosinophils # (auto) 0.09 K/uL (0-0.50); Eosinophils % (auto) 0.5 %; Hematocrit (blood only) 23.3 % (42.0-52.0); Hemoglobin 7.8 g/dl (14.0-18.0); Immature Granulocytes # (auto) 0.76 K/uL (0.01-0.20); Immature Granulocytes % (auto) 4.6 %; Lymphocytes # (auto) 1.12 K/uL (1.2-3.4); Lymphocytes % (auto) 6.7 %; Mean Corpuscular Hemoglobin 29.8 pg (25.0-34.0); Mean Corpuscular Hgb Conc 33.5 g/dL (32.0-36.0); Mean Corpuscular Volume 88.9 fL (80.0-100.0); Mean Platelet Volume 11.1 fL (9.4-12.4); Monocytes # (auto) 1.41 K/uL (0.11-0.59); Monocytes % (auto) 8.5 %; Neutrophils # (auto) 13.19 K/uL (1.40-6.50); Neutrophils % (auto) 79.5 %; Platelet Count 378 K/uL (130-400); RDW Coefficient of Variation 18.3 % (11.5-14.5); RDW Standard Deviation 58.2 fL (36.4-46.3); Red Blood Count 2.62 M/uL (4.70-6.10)
[2022-11-13 04:22] LABS: Albumin Globulin Ratio 0.7 (0.9-2); Albumin Level 2.4 gm/dl (3.4-5.0); BUN Creatinine Ratio 21.3 (10-20); Bilirubin Direct 0.1 mg/dl (0-0.2); Bilirubin,Total 0.5 mg/dl (0.2-1.0); Calcium 8.4 mg/dl (8.5-10.1); Creatinine Clr Calc Pharmacy 22.2 ml/min; Est GFR (African American) 31.2 ml/min; Est GFR (Non-African American) 26.9 ml/min; Globulin 3.5 gm/dl (2.5-4.0); Magnesium 1.9 mg/dl (1.7-2.4); Potassium 4.1 mmol/L (3.5-5.1); Total Protein 5.9 gm/dl (6.0-8.3)
[2022-11-13 05:06] LABS: Troponin I High Sensitivity 50.1 pg/ml (0-20)
[2022-11-13] MEDS: CLINDAMYCIN HCL 150 MG CAP PO SCH ×3 (05:38→16:24)
[2022-11-13] MEDS: LEVOTHYROXINE SODIUM 100 MCG TABLET PO SCH (05:38)
[2022-11-13 06:14] LABS: Echinocytes 1+; Ovalocytes 1+; Polychromasia 1+
--- NOTE | 2022-11-13 06:59 | Hospitalist Progress Note ---
Date of Service November 13, 2022 Assessment & Plan (1) Breath shortness: Plan: 87-year-old male with history of atrial fibrillation on Pradaxa anticoagulation, hypertension, GERD, HFpEF, hyperlipidemia and CKD presenting with progressive shortness of breath and poor appetite. #SOB #Pleural Effusion #HFpEF #Fluid Overload Most likely multifactorial. Patient with evidence of volume overload on physical exam to include edema, right-sided pleural effusion, mild elevation of BNP and troponin. He was given Lasix 40 mg IV in the ER and has urinated once since receiving this medication. Patient does have h/o pneumonia last month. Patient had echo in during his most recent hospital stay which revealed EF of 50 to 54% and mild pulmonary hypertension. - CXR: Interval progression of the moderate right pleural effusion and right perihilar opacities, mild pulmonary edema and a trace left pleural effusion persists CT chest: Large right pleural effusion, significantly increased in size since prior chest CT. Associated right lower lobe collapse and segmental right middle and upper lobe atelectasis. Continue Lasix 40 mg IV daily. However, has not produced much urine thus far and bladder scan with minimal urine. Monitor I/Os, daily weights, supplemental oxygen as needed. Trend troponin. EKG with ST depressions in anterolateral leads. - Procal 1.66. MRSA nares neg. - Pulmonology consulted -cont. diuresis for now -cont. palliative conversation given poor prognosis -s/p thoracentesis (11/13), chest tube in place. Post CXR with significant decrease in pleural effusion. #CKD stage 4 #Oliguria -Cr 2 which is near his baseline -diuresis as above, however, not producing much urine thus far -oliguria and worsening Cr -nephrology consulted -given medical comorbidities and age, pt would not benefit significantly from dialysis if kidney dysfunction progresses -there will be some permissive rise in creatinine with diuresis and associated changes in EAV -poor prognosis overall, palliative discussion in the works #S/p cholecystectomy with bile leak #S/p ERCP with stent placement Late in his last hospitalization he developed acute RUQ pain and was found to have acute cholecystitis.He was treated with IV Unasyn then Zosyn.Despite IV antibiotics he continued to decline therefore was transferred to [facility].There he was found to have a necrotic gallbladder s/p cholecystectomy (10/15/2022) complicated by bile leak and development of biloma.Patient had an ERCP with deployment of drainage stent in the common bile duct on 10/21/2022. - PEDRO drain in place. Apparently drain was to be removed around today. - Drainage stent was to be removed next week. - ALP consistently elevated since cholecystectomy - Gen srug consulted -PEDRO output normal -Recommend leaving drain in given more acute issues -PEDRO drain and stent can remain for several more weeks; no urgency for removal #acute on chronic anemia -Hgb 9s on admission, near baseline -now in 7s this morning with unclear etiology. Expect mild drop s/p thoracentesis which also produced serosanguineous fluid (?blood loss to pleural effusion) -FOBT ordered -repeat H&H this evening, will transfuse if hgb <7 -repeat iron studies in am -hold pradexa #Severe protein calorie malnutrition As noted during previous hospitalization, patient with persistent failure to thrive in the adult. He has been seen by palliative care team to assist with management of his symptoms. Patient reports that he has not been able to eat a decent meal for over 3 weeks due to lack of appetite. Discussed with him that this is most likely multifactorial, combination of his recent illness and hospitalization as well as age. Patient's anorexia was addressed during his previous hospital stay. Encourage oral intake. Will order heart healthy diet, mechanical soft Boost (ernst flavored preferred) twice daily Consider Remeron for appetite stimulation #Pressure ulcer Reported by patient and . -wound care consulted -Turn/position q2h #COPD Patient with some end expiratory wheezing appreciated in bilateral lung milan. He denies cough or sputum production. DuoNeb every 4 hours Albuterol every 2 hours as needed #HLD Chronic. Stable. Continue atorvastatin 80mg daily #Parkinsons Chronic. Stable. Continue carbidopa levodopa #GERD Chronic. Protonix 40 mg daily #Permanent Afib Rate controlled. Patient is anticoagulated on Pradaxa 75mg bid but is not on any rate controlling agents at this time. hold pradexa as above #Hypothyroidism Chronic. Stable. Last TSH = 3.139 on 06/24/2022. Continue Synthroid 100 mcg p.o. daily #HTN Blood pressure appropriately controlled at present Continue clonidine 0.1 mg p.o. twice daily Continue to hold patient's amlodipine #Sleep Apnea Chronic. Patient reports compliance with his home CPAP. CPAP at 11 cmH2O nightly DVT ppx: Pradaxa on hold given anemia. SCDs for now. FEN/GI: HH, renal Code Status: DNR/DNI Dispo: med tele (2) Severe protein-calorie malnutrition: (3) History of cholecystectomy: (4) COPD (chronic obstructive pulmonary disease): (5) Dyslipidemia: (6) Parkinson's disease: (7) GERD (gastroesophageal reflux disease): (8) Permanent atrial fibrillation: (9) Hypothyroidism: (10) Hypertension: (11) Apnea, sleep: Admission and Anticipated Discharge Date Admission Date: November 12, 2022 Supervising Physician Co-Signing Physician Notes Attending attestation Pt seen and examined in concert with Dr. Rubin. In agreement with the documented findings as noted in the resident documentation with any exceptions or additions as noted here. Patient reports that he has 'improved a hair' since the recent chest tube placem ent which has drained 1.3 L at time of bedside evaluation. Though tired, he does express interest in a palliative course instead of further interventional care at this time and asks to discuss with his family who were not available at bedside at time of examination. On examination, S1/S2 nl RRR no MCG. Decreased BS bilateral bases R>>L, though improved. Abd NT/ND BS+ve. PEDRO drain in place, scant bilious fluid. Chest tube draining sanguinous fluid. Goals of care - discussion of ongoing diuresis in the setting of draining chest tube and Cr to be planned for tomorrow PM Large, loculated pleural effusion s/p thoracentesis with chest tube - Pulmonology consult - draining with some gradual improvement. Continue O2 support and drainage. Shortness of breath with in the setting of HFpEF - minimal response to furosemide with ongoing oliguria TRACI - nephrology consult - no role for dialysis should Cr worsen - patient in agreement with same s/p cholecystectomy with drain in place - surgical consultation - will leave drain for now and monitor, CT without concern for collection at present Leukocytosis without apparent source, elevated procal - continue present clinda and levofloxacin, follow up cultures. Else see resident documentation as noted. Subjective Pt seen at bedside this morning. Still sob, had difficulty with breathing overnight. Denies headache, chest pain, abd pain, constipation, diarrhea, dysuria, nausea, vomiting. Pt and family leaning towards palliative. Review of Systems Review of Systems: All systems reviewed & are unremarkable except as noted in HPI & below Physical Exam Physical Exam: General: frail, chronically ill in appearance, answers questions appropriately Skin: warm, dry, bandage present on left lower extremity HEENT: NC/AT, EOMI, anicteric sclera, conjunctiva without injection, moist mucus membranes, neck supple, trachea midline, no LAD, no thyromegaly, no JVD Heart: +S1/S2, irregularly irregular, no m/r/g Lungs: mild abdominal retractions, speaking in complete sentences, diminished breath sounds in bilateral bases R>L, crackles present in right lung, faint end expiratory wheezing bilaterally Abd: +BS, soft, nontender, nondistended, ventral hernia present which is soft and reducible, PEDRO drain in place, no masses/organomegaly/ascites Ext: warm, 2+ pulses in UE/LE bilaterally, no clubbing/cyanosis, 2+ pitting edema bilateral lower extremities Neuro: nonfocal, AOx3, speech intact Results & Data Results & Data ([facility]) Vital Signs (Past 12 Hours) Vital Signs Temp Pulse Pulse Resp BP Pulse Ox Pulse Ox 11/13/22 05:08 76 98 11/13/22 04:48 96 11/13/22 04:14 75 96 11/13/22 03:34 86 23 95 11/13/22 03:14 115 H 10 L 92 11/12/22 23:02 36.2 C L 76 20 131/67 93 11/13/22 00:01 76 93 11/12/22 23:00 79 11/12/22 22:18 78 22 92 11/12/22 19:45 11/12/22 19:22 37.2 C 90 20 150/70 H 92 11/12/22 19:45 79 20 92 O2 Del Method O2 Del Method O2 Flow Rate 11/13/22 05:08 6 11/13/22 04:48 BiPAP 11/13/22 04:14 6 11/13/22 03:34 BiPAP 8 11/13/22 03:14 15 11/12/22 23:02 BiPAP 11/13/22 00:01 CPAP 5 11/12/22 23:00 11/12/22 22:18 5 11/12/22 19:45 Nasal Cannula 4 11/12/22 19:22 Nasal Cannula 5 11/12/22 19:45 Nasal Cannula 5 Laboratory Results 11/13/22 11/13/22 11/13/22 Range/Units 16:15 15:04 15:04 WBC (4.8-10.8) K/ul RBC (4.70-6.10) M/uL Hgb (14.0-18.0) g/dl Hct (42.0-52.0) % MCV (80.0-100.0) fL MCH (25.0-34.0) pg MCHC (32.0-36.0) g/dL RDW Std Deviation (36.4-46.3) fL RDW Coeff of [place] (11.5-14.5) % Plt Count (130-400) K/uL MPV (9.4-12.4) fL Immature Gran % (Auto) % Neut % (Auto) % Lymph % (Auto) % [place] % (Auto) % Eos % (Auto) % Baso % (Auto) % Neut # (Auto) (1.40-6.50) K/uL Lymph # (Auto) (1.2-3.4) K/uL [place] # (Auto) (0.11-0.59) K/uL Eos # (Auto) (0-0.50) K/uL Baso # (Auto) (0-0.2) K/uL Immature Gran # (Auto) (0.01-0.20) K/uL Polychromasia Ovalocytes Echinocytes Sodium (136-145) mmol/L Potassium (3.5-5.1) mmol/L Chloride (98-107) mmol/L Carbon Dioxide (21-32) mmol/L Anion Gap (3-11) BUN (6-23) mg/dl Creatinine (0.6-1.4) mg/dl Est Cr Clr Drug Dosing ml/min Est GFR ( Amer) ml/min Est GFR (Non-Af Amer) ml/min BUN/Creatinine Ratio (10-20) Glucose (70-99(Fasting)) mg/dl Calcium (8.5-10.1) mg/dl Magnesium (1.7-2.4) mg/dl Total Bilirubin (0.2-1.0) mg/dl Direct Bilirubin (0-0.2) mg/dl AST (13-39) U/L ALT (7-52) U/L Alkaline Phosphatase (34-104) U/L Lactate Dehydrogenase 263 H (86-244) U/L Troponin I High Sens (0-20) pg/ml Total Protein 5.8 L (6.0-8.3) gm/dl Albumin (3.4-5.0) gm/dl Globulin (2.5-4.0) gm/dl Albumin/Globulin Ratio (0.9-2) Procalcitonin (0-0.5) ng/ml Fluid Neutrophils % Fluid Comment Peritoneal LDH Peritoneal Glucose Peritoneal Amylase Pleural Fluid Source Pleural Color Pleural Appearance Pleural pH (7.3-7.4) Pleural Total Protein Pleural LDH Pleural Glucose Pleural Amylase U/L Nasal Screen MRSA (PCR) Pending 11/13/22 11/13/22 11/13/22 Range/Units 15:04 14:30 14:30 WBC (4.8-10.8) K/ul RBC (4.70-6.10) M/uL Hgb 7.5 L (14.0-18.0) g/dl Hct 22.9 L (42.0-52.0) % MCV (80.0-100.0) fL MCH (25.0-34.0) pg MCHC (32.0-36.0) g/dL RDW Std Deviation (36.4-46.3) fL RDW Coeff of [place] (11.5-14.5) % Plt Count (130-400) K/uL MPV (9.4-12.4) fL Immature Gran % (Auto) % Neut % (Auto) % Lymph % (Auto) % [place] % (Auto) % Eos % (Auto) % Baso % (Auto) % Neut # (Auto) (1.40-6.50) K/uL Lymph # (Auto) (1.2-3.4) K/uL [place] # (Auto) (0.11-0.59) K/uL Eos # (Auto) (0-0.50) K/uL Baso # (Auto) (0-0.2) K/uL Immature Gran # (Auto) (0.01-0.20) K/uL Polychromasia Ovalocytes Echinocytes Sodium (136-145) mmol/L Potassium (3.5-5.1) mmol/L Chloride (98-107) mmol/L Carbon Dioxide (21-32) mmol/L Anion Gap (3-11) BUN (6-23) mg/dl Creatinine (0.6-1.4) mg/dl Est Cr Clr Drug Dosing ml/min Est GFR ( Amer) ml/min Est GFR (Non-Af Amer) ml/min BUN/Creatinine Ratio (10-20) Glucose (70-99(Fasting)) mg/dl Calcium (8.5-10.1) mg/dl Magnesium (1.7-2.4) mg/dl Total Bilirubin (0.2-1.0) mg/dl Direct Bilirubin (0-0.2) mg/dl AST (13-39) U/L ALT (7-52) U/L Alkaline Phosphatase (34-104) U/L Lactate Dehydrogenase (86-244) U/L Troponin I High Sens (0-20) pg/ml Total Protein (6.0-8.3) gm/dl Albumin (3.4-5.0) gm/dl Globulin (2.5-4.0) gm/dl Albumin/Globulin Ratio (0.9-2) Procalcitonin (0-0.5) ng/ml Fluid Neutrophils % Fluid Comment Peritoneal LDH Peritoneal Glucose Peritoneal Amylase Pleural Fluid Source Pleural Color Pleural Appearance Pleural pH 7.31 (7.3-7.4) Pleural Total Protein Pending Pleural LDH Pending Pleural Glucose Pending Pleural Amylase 42 U/L Nasal Screen MRSA (PCR) 11/13/22 11/13/22 11/13/22 Range/Units 14:30 14:30 03:49 WBC (4.8-10.8) K/ul RBC (4.70-6.10) M/uL Hgb (14.0-18.0) g/dl Hct (42.0-52.0) % MCV (80.0-100.0) fL MCH (25.0-34.0) pg MCHC (32.0-36.0) g/dL RDW Std Deviation (36.4-46.3) fL RDW Coeff of [place] (11.5-14.5) % Plt Count (130-400) K/uL MPV (9.4-12.4) fL Immature Gran % (Auto) % Neut % (Auto) % Lymph % (Auto) % [place] % (Auto) % Eos % (Auto) % Baso % (Auto) % Neut # (Auto) (1.40-6.50) K/uL Lymph # (Auto) (1.2-3.4) K/uL [place] # (Auto) (0.11-0.59) K/uL Eos # (Auto) (0-0.50) K/uL Baso # (Auto) (0-0.2) K/uL Immature Gran # (Auto) (0.01-0.20) K/uL Polychromasia Ovalocytes Echinocytes Sodium (136-145) mmol/L Potassium (3.5-5.1) mmol/L Chloride (98-107) mmol/L Carbon Dioxide (21-32) mmol/L Anion Gap (3-11) BUN (6-23) mg/dl Creatinine (0.6-1.4) mg/dl Est Cr Clr Drug Dosing ml/min Est GFR ( Amer) ml/min Est GFR (Non-Af Amer) ml/min BUN/Creatinine Ratio (10-20) Glucose (70-99(Fasting)) mg/dl Calcium (8.5-10.1) mg/dl Magnesium (1.7-2.4) mg/dl Total Bilirubin (0.2-1.0) mg/dl Direct Bilirubin (0-0.2) mg/dl AST (13-39) U/L ALT (7-52) U/L Alkaline Phosphatase (34-104) U/L Lactate Dehydrogenase (86-244) U/L Troponin I High Sens (0-20) pg/ml Total Protein (6.0-8.3) gm/dl Albumin (3.4-5.0) gm/dl Globulin (2.5-4.0) gm/dl Albumin/Globulin Ratio (0.9-2) Procalcitonin 1.44 H (0-0.5) ng/ml Fluid Neutrophils % Pending Fluid Comment Peritoneal LDH Cancelled Peritoneal Glucose Cancelled Peritoneal Amylase Cancelled Pleural Fluid Source Pending Pleural Color Pending Pleural Appearance Pending Pleural pH (7.3-7.4) Pleural Total Protein Pleural LDH Pleural Glucose Pleural Amylase U/L Nasal Screen MRSA (PCR) 11/13/22 11/13/22 11/12/22 Range/Units 03:45 03:45 14:59 WBC 16.60 H (4.8-10.8) K/ul RBC 2.62 L (4.70-6.10) M/uL Hgb 7.8 L (14.0-18.0) g/dl Hct 23.3 L (42.0-52.0) % MCV 88.9 (80.0-100.0) fL MCH 29.8 (25.0-34.0) pg MCHC 33.5 (32.0-36.0) g/dL RDW Std Deviation 58.2 H (36.4-46.3) fL RDW Coeff of [place] 18.3 H (11.5-14.5) % Plt Count 378 (130-400) K/uL MPV 11.1 (9.4-12.4) fL Immature Gran % (Auto) 4.6 % Neut % (Auto) 79.5 % Lymph % (Auto) 6.7 % [place] % (Auto) 8.5 % Eos % (Auto) 0.5 % Baso % (Auto) 0.2 % Neut # (Auto) 13.19 H (1.40-6.50) K/uL Lymph # (Auto) 1.12 L (1.2-3.4) K/uL [place] # (Auto) 1.41 H (0.11-0.59) K/uL Eos # (Auto) 0.09 (0-0.50) K/uL Baso # (Auto) 0.03 (0-0.2) K/uL Immature Gran # (Auto) 0.76 H (0.01-0.20) K/uL Polychromasia 1+ Ovalocytes 1+ Echinocytes 1+ Sodium 134 L (136-145) mmol/L Potassium 4.1 (3.5-5.1) mmol/L Chloride 101 (98-107) mmol/L Carbon Dioxide 23 (21-32) mmol/L Anion Gap 10 (3-11) BUN 45 H (6-23) mg/dl Creatinine 2.11 H (0.6-1.4) mg/dl Est Cr Clr Drug Dosing 22.2 ml/min Est GFR ( Amer) 31.2 ml/min Est GFR (Non-Af Amer) 26.9 ml/min BUN/Creatinine Ratio 21.3 H (10-20) Glucose 150 H (70-99(Fasting)) mg/dl Calcium 8.4 L (8.5-10.1) mg/dl Magnesium 1.9 (1.7-2.4) mg/dl Total Bilirubin 0.5 (0.2-1.0) mg/dl Direct Bilirubin 0.1 (0-0.2) mg/dl AST 19 (13-39) U/L ALT 4 L (7-52) U/L Alkaline Phosphatase 141 H (34-104) U/L Lactate Dehydrogenase (86-244) U/L Troponin I High Sens 50.1 H* D 38.7 H D (0-20) pg/ml Total Protein 5.9 L (6.0-8.3) gm/dl Albumin 2.4 L (3.4-5.0) gm/dl Globulin 3.5 (2.5-4.0) gm/dl Albumin/Globulin Ratio 0.7 L (0.9-2) Procalcitonin (0-0.5) ng/ml Fluid Neutrophils % Fluid Comment Peritoneal LDH Peritoneal Glucose Peritoneal Amylase Pleural Fluid Source Pleural Color Pleural Appearance Pleural pH (7.3-7.4) Pleural Total Protein Pleural LDH Pleural Glucose Pleural Amylase U/L Nasal Screen MRSA (PCR) Resident Activity Tracking Resident Involvement: Resident Care Provided Care Provided: Adult Hospital Medicine (11) Apnea, sleep Sleep apnea type: obstructive Qualified Code(s): G47.33 - Obstructive sleep apnea (adult) (pediatric)
[2022-11-13] MEDS: cloNIDine HCL 0.1 MG TAB PO SCH ×2 (07:43→20:57)
[2022-11-13] MEDS: CALCITRIOL 0.25 MCG CAPSULE PO SCH (07:43)
[2022-11-13] MEDS: CARBIDOPA/LEVODOPA 25/100MG TAB PO SCH ×3 (07:44→16:25)
[2022-11-13] MEDS: allopurinoL 100 MG TAB PO SCH (07:44)
[2022-11-13] MEDS: FUROSEMIDE 40 MG/4 ML VIAL IV SCH (07:45)
--- NOTE | 2022-11-13 09:08 | Pulmonology Progress Note ---
Date of Service November 13, 2022 Assessment & Plan (1) Pleural effusion: (2) History of cholecystectomy: (3) Acute heart failure with preserved ejection fraction (HFpEF): (4) Acute respiratory failure with hypoxia: (5) Acute dyspnea: Plan Dyspnea and hypoxemia multifactorial related to acute diastolic CHF, acute anemia, right pleural effusion and volume overload. Agree with diuresis and monitoring urine output closely. Due to the patient's worsening dyspnea, will proceed with diagnostic and therapeutic thoracentesis today despite the fact that the patient received a dose of Pradaxa yesterday morning. Patient understands the risks and benefits and is willing to proceed. We will also call his family to discuss plans to proceed with thoracentesis. Echo 10/15/2022 with an EF of 50 to 54%. Right ventricular systolic function was normal. Mild pulmonary hypertension present per cardiology. Recommend ongoing palliative care discussions. Discussed with resident physician who is on the primary team. Thank you for the consultation. We will continue to follow along with you. Admission and Anticipated Discharge Date Admission Date: November 12, 2022 Subjective Patient remains with conversational dyspnea. He had a poor night and had difficulty sleeping. He denies chest pain. He remains on oxygen mask to maintain sats in the mid 90s. Chest x-ray personally reviewed today with a moderate to large layering pleural effusion noted on the right. Review of Systems Review of Systems: All systems reviewed & are unremarkable except as noted in HPI & below Physical Exam Physical Exam: Constitutional: Patient appears to be of their stated age. Patient is in no apparent distress. Patient is well-developed. Eyes: Pupils are equal round and reactive to light. Conjunctivae are normal. Anicteric sclera. Ears nose, mouth and throat: Mallampati class 2. Normal posterior oropharynx. Uvula is midline. Neck: Trachea is midline. Visual inspection is normal. Respiratory: Crackles on the right. Prolonged phase of exhalation. No wheezes. Cardiovascular: Regular rate and rhythm. No murmurs. No edema. Gastrointestinal: Normal bowel sounds, soft, nontender and nondistended. No hepatosplenomegaly noted. Musculoskeletal: Diffusely weak. Able to move all extremities. Skin: No rashes, warm dry and intact. Neurologic: No obvious focal neurological deficits seen. Psychiatric: Alert and oriented x3 with a euthymic affect. Results & Data Results & Data ([facility]) Vital Signs (Past 12 Hours) Vital Signs Temp Pulse Pulse Resp BP Pulse Ox Pulse Ox 11/13/22 08:28 36.6 C 77 20 126/60 96 11/13/22 07:29 81 11/13/22 07:24 76 18 95 11/13/22 05:08 76 98 11/13/22 04:48 96 11/13/22 04:14 75 96 11/13/22 03:34 86 23 95 11/13/22 03:14 115 H 10 L 92 11/12/22 23:02 36.2 C L 76 20 131/67 93 11/13/22 00:01 76 93 11/12/22 23:00 79 11/12/22 22:18 78 22 92 O2 Del Method O2 Del Method O2 Flow Rate 11/13/22 08:28 Room Air 11/13/22 07:29 11/13/22 07:24 Oxymask 8 11/13/22 05:08 6 11/13/22 04:48 BiPAP 11/13/22 04:14 6 11/13/22 03:34 BiPAP 8 11/13/22 03:14 15 11/12/22 23:02 BiPAP 11/13/22 00:01 CPAP 5 11/12/22 23:00 11/12/22 22:18 5 PG Care Time/CCT Total # of Minutes Spent Total Time Spent with Patient: Total time spent is greater than 50% in coordination of care (as documented) at patient's floor/unit and/or counseling patient: Coding Level of Care Code 42140 SUB INP/OBS CARE 3/50MIN Diagnoses Pleural effusion J90 History of cholecystectomy Z90.49 Acute heart failure with preserved ejection fraction (HFpEF) I50.31 Acute respiratory failure with hypoxia J96.01 Acute dyspnea R06.00
--- NOTE | 2022-11-13 09:25 | XRay Report ---
XR chest 1V portable HISTORY: Shortness of breath. COMPARISON: Chest 11/12/2022. FINDINGS: No pneumothorax. The cardiac silhouette remains enlarged. A moderate to large right and sma ll left pleural effusions persist. Right perihilar airspace opacities have slightly improved. The lef t-sided single lead pacemaker. IMPRESSION: 1. No change in the bilateral pleural effusions. 2. Right perihilar airspace opacities have slightly improved. ACT 112: Negative or not required by law. Electronically signed by: Phi Shaikh M.D. 11/13/2022 9:24 AM
--- NOTE | 2022-11-13 11:22 | Electrocardiogram Report ---
Test Reason : Blood Pressure : / mmHG Vent. Rate : 086 BPM Atrial Rate : 065 BPM P-R Int : 000 ms QRS Dur : 088 ms QT Int : 336 ms P-R-T Axes : 000 023 256 degrees QTc Int : 402 ms Atrial fibrillation Poor R wave progression, consider anterior ID vs. lead placement vs. LVH Nonspecific ST abnormality Abnormal ECG When compared with ECG of 12-NOV-2022 01:23, Borderline criteria for Lateral infarct are now Present Nonspecific T wave abnormality has replaced inverted T waves in Anterolateral leads QT has shortened Confirmed by Rashawn Blankenship ([id number]) on 11/13/2022 11:22:34 AM Referred By: Octavianoraf Abebe Confirmed By:Hong Blankenship
--- NOTE | 2022-11-13 14:50 | Procedure Note ---
Procedure Note Date of Service November 13, 2022 Note PIGTAIL CATHETER PLACEMENT NOTE: Procedure: Pigtail Catheter Chest Tube Placement Indication: Loculated pleural effusion Anesthesia: 10 lidocaine 1% Written consent was obtained and placed on the chart. Timeout was done prior to the procedure. Prior to procedure, chest x-ray films were reviewed by myself and demonstrated a large loculated right pleural effusion. A time-out was completed verifying correct patient, procedure, site, positioning, and implant(s) or special equipment if applicable. Utilizing bedside ultrasound, chest wall was evaluated for location for optimal chest tube placement. Location between the fifth and sixth ribs were marked on the skin using gentle pressure. The right sided chest wall was prepped with chlorhexidine and draped in the typical sterile fashion. 10 mL of 1% Lidocaine without epinephrine was used to anesthetize the skin down to the dorsal surface of the fifth rib. Cloudy colored fluid return confirmed entry into the pleural space. Lidocaine was injected into the pleural space for increased anesthetization. Introducer needle on syringe was inserted in perpendicular fashion taking care to ride just above the dorsal surface of the left rib. Entry into the pleural space was heralded by cloudy colored fluid return into the syringe while under gentle aspiration. Guide wire was advanced into the pleural space without resistance and the introducer needle was subsequently removed. Scalpel was used to make small incision of the superficial tissue, parallel to the direction of the rib anatomy. Dilator was advanced uneventfully over the guide wire into the pleural space. 14 Yoruba Pigtail Catheter was inserted into the pleural space. Inner introducer and guide wire were removed. Drain was immediately connected to pre-prepared MARYJANE pleur-evac system. Pigtail was sutured securely in place and sterile dressing was applied. Chest tube was placed to -20 cmH2O suction. Patient tolerated procedure well. Blood Loss: Minimal Complications: None Postprocedure chest x-ray is ordered. Coding CPT Codes Pulmonary/Thoracic - Pulmonary and Thoracic: 80973 Tube thoracostomy ([id number]) [facility] [place] ([place]) Pulmonary/Thoracic Procedure 1: Pulmonary and Thoracic: 54882 Tube thoracostomy
[2022-11-13 15:22] LABS: Hematocrit (blood only) 22.9 % (42.0-52.0); Hemoglobin 7.5 g/dl (14.0-18.0)
--- NOTE | 2022-11-13 15:26 | XRay Report ---
XR chest 1V portable CLINICAL HISTORY: S/P Thoracentesis TECHNIQUE: Single frontal radiograph of the chest was obtained. Comparison: Comparison is made to chest radiograph 11/13/2022 FINDINGS: A single lead pacemaker is seen. A right chest tube is noted. Cardiomegaly is noted. The aortic arch is calcified. The lungs are clear. There is interval decrease in size of a right pleural effusion whi ch is now small. No pneumothorax is seen. There is a trace left pleural effusion, stable. IMPRESSION: Interval decrease in size of right pleural effusion, now small in size, status post placement of a ri ght pleural catheter. No pneumothorax is seen. Additional stable findings as above. ACT 112: Negative or not required by law. Electronically signed by: Bubba Charltno M.D. 11/13/2022 3:25 PM
[2022-11-13] MEDS ORDERED: STAT IV STA (15:40)
[2022-11-13] MEDS ORDERED: SODIUM BICARB 8.4% INJ 50 MEQ/50 ML SYR IV STA (15:40)
--- NOTE | 2022-11-13 16:04 | Nephrology Consultation ---
Date of Consultation November 13, 2022 Assessment & Plan (1) Acute renal insufficiency: Electrolytes acceptable. Non-oluguric. No emergent indication for dialysis. Unfortunately, given medical comorbidities and age, Jimi would not benefit significantly from dialysis if kidney dysfunction progresses. We discussed this during his prior and admission and he agreed with this today. I would consider palliative care consultation. There will be some permissive rise in creatinine with diuresis and associated changes in EAV. The patient has not been on an YANELY or ARB. Medications are appropriately dosed for kidney function. Ultimately, for consideration, there is likely more evidence for the use of apixaban in CKD than dabigatran. Document strict I/O's. Repeat metabolic profile tomorrow AM. Renal diet. Continue calcitriol as Rx. (2) Chronic kidney disease, stage IV (severe): Baseline creatinine 1.6-2.0 mg/dL. CKD attributed to history of hypertension and renovascular disease. No evidence of obstruction. (3) Anemia: Update iron profile with AM labs. (4) Acute heart failure with preserved ejection fraction (HFpEF): (5) Severe pulmonary hypertension: (6) Pleural effusion: s/p thoracentesis today. History of Present Illness Reason for Consultation: oliguria on diruesis with TRACI Requesting Physician: Bhupendra Holman MD Attending Physician: Bhupendra Holman MD History of Present Illness Mr. Jimi Ramsay is an 87 year-old male with atrial fibrillation, hypertension, GERD, and hyperlipidemia. He was recently admitted to [facility] from September 24- with SOB attributed to pneumonia and HFpEF. The hospitalization was complicated by acute cholecystitis. He was then transferred to [facility] with acute cholecystitis with necrotic gallbladder complicated by bile leak and biloma. s/p ERCP with stent placement on 10/21. Jimi was discharged to [facility] where he has remained very weak and debilitated with reported poor PO intake. He presented to [facility] yesterday with progressive shortness of breath. Evaluation notable for a right sided pleural effusion which was drained today. The patient was seen and evaluated this morning prior to the procedure and was with significant difficulty breathing. Serum creatinine on admission was 2.1 mg/dL from a baseline of 1.83 mg/dL on November 07 and 2.0 mg/dL on November 10. Creatinine stable today. Furosemide 40 mg IV was provided in the ER. Urine studies are notable for trace protein and acellular microscopy. CT of the abdomen demonstrated marked atrophy of the kidneys, notably on the left more than the right. Allergies Allergy/AdvReac Type Severity Reaction Status Date / Time hydralazine AdvReac Severe anorexia,h/ Verified 11/12/22 01:49 a,nausea,pa lpitations Home Medications Medication Instructions Recorded Confirmed Type CPAP Machine #10 ea 07/13/19 09/24/22 Rx CPAP Machine #1 ea 04/24/20 09/24/22 Rx levothyroxine 100 mcg tablet 100 mcg PO QAM #90 tabs 02/11/22 11/12/22 Rx Saccharomyces boulardii 250 mg 250 mg PO QPM 11/12/22 11/12/22 History capsule (Florastor) acetaminophen 325 mg tablet 650 mg PO Q4H PRN PAIN/FEVER 11/12/22 11/12/22 History (Tylenol) allopurinol 100 mg tablet 100 mg PO QAM 11/12/22 11/12/22 History atorvastatin 80 mg tablet 80 mg PO PM 11/12/22 11/12/22 History bisacodyl 10 mg rectal suppository 10 mg NE Q OTHER DAY PRN 11/12/22 11/12/22 History Constipation calcitriol 0.5 mcg capsule 0.5 mcg PO QAM 11/12/22 11/12/22 History carbidopa 25 mg-levodopa 100 mg 1 tab PO TIDM 11/12/22 11/12/22 History tablet clindamycin HCl 300 mg capsule 300 mg PO Q6H 11/12/22 11/12/22 History clonidine HCl 0.1 mg tablet 0.1 mg PO BID 11/12/22 11/12/22 History dabigatran etexilate 75 mg capsule 75 mg PO BID 11/12/22 11/12/22 History (Pradaxa) levofloxacin 750 mg tablet 750 mg PO Q OTHER DAY 11/12/22 11/12/22 History omeprazole 40 mg capsule,delayed 40 mg PO QAM 11/12/22 11/12/22 History release tiotropium bromide 1.25 2 puff inhalation QAM 11/12/22 11/12/22 History mcg/actuation mist for inhalation (Spiriva Respimat) Patient History Medical History Anemia Anticoagulant long-term use Carotid artery stenosis Chronic constipation Chronic kidney disease, stage 3 (moderate) Dyslipidemia Former smoker GERD (gastroesophageal reflux disease) Gout History of DVT (deep vein thrombosis) HTN (hypertension) Hypothyroid Pacemaker (01/2021) Parkinson's disease Permanent atrial fibrillation Pleural effusion Subdural hematoma (2006) Surgical History H/O vasectomy History of appendectomy History of renal stent (2006) Right History of renal stent (2008) Left Hx of tonsillectomy S/P carotid endarterectomy (1994) S/P insertion of inferior vena caval filter Family History Father Diabetes Denies family history of Ovarian cancer Prostate cancer Myocardial infarction Breast cancer Lung cancer Colorectal cancer Stroke Social History (Updated 11/12/22 @ 03:40 by Kailyn Norman DO) Smoking Status: Former smoker Age Started Using Tobacco: 12; Age Quit Using Tobacco: 53; packs per day: 1; Cigarettes Per Day: 20; Second Hand Exposure: No; Hx Alcohol Use: Yes Alcohol type: beer Hx Substance Use: No Preferred Language: Hungarian Communication Ability: Effective Visual Impairment: No Limitations Hearing Ability: Normal [employer] Required: No Beliefs That Will Affect Care: None marital status: Current Living Situation: Spouse Current Living Situation Comment: from home current occupational status: retired Feels Safe at Home: Yes Childhood Exposure to Second-Hand Smoke: Yes during the past year weight has: remained stable Physical Activity Frequency: Daily Physical Activity Frequency Comment: walks a mile every day in nice weather Seatbelt Use: always Assistive Devices: CPAP, Oxygen - at Night, Walker and Wheelchair Review of Systems Review of Systems: All systems reviewed & are unremarkable except as noted in HPI & below Respiratory: + dyspnea Physical Exam Constitutional: + acute distress, + ill appearing and + cachectic Eyes: + anicteric sclerae ENMT: Mouth: + dry oral mucous membranes Neck: normal visual inspection and trachea midline Respiratory: + labored breathing and + tachypneic Auscultation: + diminished lung sounds and + rales Cardiovascular: Rate/Rhythm: regular rate Heart Sounds: normal S1 and normal S2 Extremities: + pedal edema and + varicosities Musculoskeletal: Extremities: no cyanosis and no clubbing Skin: + turgor decreased and + ecchymosis; no jaundice Neurologic: Motor/Sensory: no tremor and no asterixis Psychiatric: Orientation: alert and oriented x 3 Results & Data ([facility]) Vital Signs (Past 12 Hours) Vital Signs Temp Pulse Pulse Resp BP Pulse Ox Pulse Ox 11/13/22 15:12 83 20 94 11/13/22 14:46 98 11/13/22 11:31 101 H 34 H 91 11/13/22 11:31 101 H 34 H 91 11/13/22 09:01 11/13/22 08:28 36.6 C 77 20 126/60 96 11/13/22 07:29 81 11/13/22 07:24 76 18 95 11/13/22 05:08 76 98 11/13/22 04:48 96 11/13/22 04:14 75 96 O2 Del Method O2 Del Method O2 Flow Rate O2 Flow Rate 11/13/22 15:12 Oxymask 4 11/13/22 14:46 Nasal Cannula 4 11/13/22 11:31 BiPAP 8 11/13/22 11:31 8 11/13/22 09:01 Oxymask 4 11/13/22 08:28 Room Air 11/13/22 07:29 11/13/22 07:24 Oxymask 8 11/13/22 05:08 6 11/13/22 04:48 BiPAP 11/13/22 04:14 6 Laboratory Results Laboratory Results - last 24 hr 11/12/22 11/13/22 11/13/22 14:59 03:45 03:45 WBC 16.60 H RBC 2.62 L Hgb 7.8 L Hct 23.3 L MCV 88.9 MCH 29.8 MCHC 33.5 RDW Std Deviation 58.2 H RDW Coeff of Italo 18.3 H Plt Count 378 MPV 11.1 Immature Gran % (Auto) 4.6 Neut % (Auto) 79.5 Lymph % (Auto) 6.7 [place]upe % (Auto) 8.5 Eos % (Auto) 0.5 Baso % (Auto) 0.2 Neut # (Auto) 13.19 H Lymph # (Auto) 1.12 L [place] # (Auto) 1.41 H Eos # (Auto) 0.09 Baso # (Auto) 0.03 Immature Gran # (Auto) 0.76 H Polychromasia 1+ Ovalocytes 1+ Echinocytes 1+ Sodium 134 L Potassium 4.1 Chloride 101 Carbon Dioxide 23 Anion Gap 10 BUN 45 H Creatinine 2.11 H Est Cr Clr Drug Dosing 22.2 Est GFR ( Amer) 31.2 Est GFR (Non-Af Amer) 26.9 BUN/Creatinine Ratio 21.3 H Glucose 150 H Calcium 8.4 L Magnesium 1.9 Total Bilirubin 0.5 Direct Bilirubin 0.1 AST 19 ALT 4 L Alkaline Phosphatase 141 H Lactate Dehydrogenase Troponin I High Sens 38.7 H D 50.1 H* D Total Protein 5.9 L Albumin 2.4 L Globulin 3.5 Albumin/Globulin Ratio 0.7 L Procalcitonin Fluid Neutrophils % Fluid Comment Peritoneal LDH Peritoneal Glucose Peritoneal Amylase Pleural Fluid Source Pleural Color Pleural Appearance Pleural pH Pleural Total Protein Pleural LDH Pleural Glucose Pleural Amylase 11/13/22 11/13/22 11/13/22 03:49 14:30 14:30 WBC RBC Hgb Hct MCV MCH MCHC RDW Std Deviation RDW Coeff of Italo Plt Count MPV Immature Gran % (Auto) Neut % (Auto) Lymph % (Auto) [place] % (Auto) Eos % (Auto) Baso % (Auto) Neut # (Auto) Lymph # (Auto) [place] # (Auto) Eos # (Auto) Baso # (Auto) Immature Gran # (Auto) Polychromasia Ovalocytes Echinocytes Sodium Potassium Chloride Carbon Dioxide Anion Gap BUN Creatinine Est Cr Clr Drug Dosing Est GFR ( Amer) Est GFR (Non-Af Amer) BUN/Creatinine Ratio Glucose Calcium Magnesium Total Bilirubin Direct Bilirubin AST ALT Alkaline Phosphatase Lactate Dehydrogenase Troponin I High Sens Total Protein Albumin Globulin Albumin/Globulin Ratio Procalcitonin 1.44 H Fluid Neutrophils % Pending Fluid Comment Peritoneal LDH Cancelled Peritoneal Glucose Cancelled Peritoneal Amylase Cancelled Pleural Fluid Source Pending Pleural Color Pending Pleural Appearance Pending Pleural pH Pleural Total Protein Pleural LDH Pleural Glucose Pleural Amylase 11/13/22 11/13/22 11/13/22 14:30 14:30 15:04 WBC RBC Hgb 7.5 L Hct 22.9 L MCV MCH MCHC RDW Std Deviation RDW Coeff of Italo Plt Count MPV Immature Gran % (Auto) Neut % (Auto) Lymph % (Auto) [place] % (Auto) Eos % (Auto) Baso % (Auto) Neut # (Auto) Lymph # (Auto) [place] # (Auto) Eos # (Auto) Baso # (Auto) Immature Gran # (Auto) Polychromasia Ovalocytes Echinocytes Sodium Potassium Chloride Carbon Dioxide Anion Gap BUN Creatinine Est Cr Clr Drug Dosing Est GFR ( Amer) Est GFR (Non-Af Amer) BUN/Creatinine Ratio Glucose Calcium Magnesium Total Bilirubin Direct Bilirubin AST ALT Alkaline Phosphatase Lactate Dehydrogenase Troponin I High Sens Total Protein Albumin Globulin Albumin/Globulin Ratio Procalcitonin Fluid Neutrophils % Fluid Comment Peritoneal LDH Peritoneal Glucose Peritoneal Amylase Pleural Fluid Source Pleural Color Pleural Appearance Pleural pH Pending Pleural Total Protein Pending Pleural LDH Pending Pleural Glucose Pending Pleural Amylase Pending 11/13/22 11/13/22 15:04 15:04 WBC RBC Hgb Hct MCV MCH MCHC RDW Std Deviation RDW Coeff of Italo Plt Count MPV Immature Gran % (Auto) Neut % (Auto) Lymph % (Auto) [place] % (Auto) Eos % (Auto) Baso % (Auto) Neut # (Auto) Lymph # (Auto) [place] # (Auto) Eos # (Auto) Baso # (Auto) Immature Gran # (Auto) Polychromasia Ovalocytes Echinocytes Sodium Potassium Chloride Carbon Dioxide Anion Gap BUN Creatinine Est Cr Clr Drug Dosing Est GFR ( Amer) Est GFR (Non-Af Amer) BUN/Creatinine Ratio Glucose Calcium Magnesium Total Bilirubin Direct Bilirubin AST ALT Alkaline Phosphatase Lactate Dehydrogenase 263 H Troponin I High Sens Total Protein 5.8 L Albumin Globulin Albumin/Globulin Ratio Procalcitonin Fluid Neutrophils % Fluid Comment Peritoneal LDH Peritoneal Glucose Peritoneal Amylase Pleural Fluid Source Pleural Color Pleural Appearance Pleural pH Pleural Total Protein Pleural LDH Pleural Glucose Pleural Amylase Diagnostic Findings CT SCAN OF THE ABDOMEN AND PELVIS WITHOUT IV CONTRAST FINDINGS: Lung bases: The heart is enlarged and without pericardial effusion. Pacemaker leads are in place. The coronary arteries are densely calcified. There is a moderate right pleural effusion with atelectasis/consolidation of the right lower lobe. Trace pleural fluid is seen on the left with left basilar scarring/atelectasis. A small hiatal hernia is noted. Liver: The unenhanced liver is normal in size, contour, and attenuation. Pneumobilia is noted. There is no significant intrahepatic biliary ductal dilatation. There is an approximately 2.5 x 5.5 x 3.5 cm subcapsular fluid collection along the inferior right lobe seen on axial image #189. This is new from previous. Gallbladder: Surgically absent noting clips in the gallbladder fossa. A common bile duct stent is in place. Pneumobilia suggests patency of the stent. Spleen: Normal in size and attenuation. Pancreas: The unenhanced pancreas is atrophic and grossly unremarkable. Adrenal glands: Unremarkable. Kidneys: There is markedly asymmetric cortical atrophy of the left kidney as compared to the right. No hydronephrosis is seen. A 2 mm nonobstructing calculus is noted on the right. There is no evidence of contour deforming renal mass lesion. Abdominal vasculature: There is advanced atherosclerotic calcification and ectasia of the abdominal aorta. Bilateral renal artery stents are noted. An infrarenal IVC filter is in place. Bowel: There is advanced colonic diverticulosis without CT evidence of acute diverticulitis. No bowel obstruction is seen. Moderate fecal retention is noted throughout the colon. The appendix is not identified and reported surgically absent. Peritoneum: A surgical drain is coiled along the undersurface of the liver/gallbladder fossa from a right lateral mid abdominal approach. There is infiltration/stranding around the course of the drain. There is no evidence of fluid collection in the gallbladder fossa on this unenhanced examination. A tiny focus of intraperitoneal gas below the right lobe of liver seen on image #194 is nonspecific and may be related to the presence of an indwelling catheter. Lymphadenopathy: None. Pelvic viscera: The prostate gland is enlarged and heterogeneous noting median lobe hypertrophy. The bladder wall is thickened/trabeculated indicating chronic outlet obstruction. There is a small fat-containing left inguinal hernia. Surgical clips are noted along the spermatic cord bilaterally. Skeletal structures: The skeletal structures are osteopenic. There is mild to moderate lumbosacral spondylosis. No lytic or blastic lesions are seen. Soft tissues: There is anasarca of the body wall. IMPRESSION: 1. There is postoperative change from interval cholecystectomy with common bile duct stent and surgical drain placement in the right upper quadrant as compared to the 10/13/2022 examination. 2. There is no significant intrahepatic biliary duct dilatation. Pneumobilia suggests patency of the stent. 3. A tiny focus of intraperitoneal free air in the right upper quadrant is nonspecific and likely related to the presence of an indwelling drain. 4. Mild stranding along the course of the drain is nonspecific. No intraperitoneal fluid collection is identified on this unenhanced examination. 5. There is an approximately 2.5 x 5.5 x 3.5 cm subcapsular fluid collection along the inferior right lobe of the liver. The sterility of this fluid cannot be assessed imaging. 6. Moderate right pleural effusion with atelectasis/consolidation of the right lower lobe. 7. Cardiomegaly and trace pleural fluid on the left. 8. Colonic diverticulosis without CT evidence of acute diverticulitis. 9. Body wall edema. PG Care Time/CCT Total # of Minutes Spent Total Time Spent with Patient: Total time spent is greater than 50% in coordination of care (as documented) at patient's floor/unit and/or counseling patient: Coding Level of Care Code INP/OBS CONSULT LVL 4, 60 MIN Diagnoses Acute renal insufficiency N28.9 Chronic kidney disease, stage IV (severe) N18.4 Anemia D64.9 Acute heart failure with preserved ejection fraction (HFpEF) I50.31 Severe pulmonary hypertension I27.20 Pleural effusion J90
[2022-11-13] MEDS: SODIUM BICARBONATE 8.4% 150 MEQ in DEXTROSE 5% 1,000 ML IV SCH (16:24)
[2022-11-13] MEDS: ATORVASTATIN 40 MG TAB PO SCH (16:26)
[2022-11-13 16:36] LABS: Amylase Pleural Fluid 42 U/L
[2022-11-13 17:09] LABS: Appearance Pleural Fluid Hazy; Color Pleural Fluid Pink; Lymphocytes, Fluid 8 %; Mono,Macrophage,Mesothelial 29 %; Neutrophils, Fluid 63 %; RBC Pleural Fluid Auto 13000 /uL; Source Pleural Fluid Right Lung; WBC Pleural Fluid Auto 2807 /uL
[2022-11-13 17:12] LABS: Glucose Pleural Fluid 77 mg/dl; LDH Pleural Fluid 2147 U/L; Total Protein Pleural Fluid < 3.0 gm/dl
[2022-11-13] MEDS: ACETAMINOPHEN 325 MG TAB PO PRN (20:57)
[2022-11-13 22:53] LABS: Hematocrit (blood only) 20.3 % (42.0-52.0); Hemoglobin 6.8 g/dl (14.0-18.0)
[2022-11-13] MEDS ORDERED: SODIUM CHLORIDE 0.9% 250 ML IV PRN (23:27)
[2022-11-14] MEDS: ALBUT/IPRATROP 3MG/0.5MG NEB 3 ML VIAL NEB SCH ×5 (02:42→19:32)
[2022-11-14] MEDS: CLINDAMYCIN HCL 150 MG CAP PO SCH ×5 (05:35→23:25)
[2022-11-14] MEDS: LEVOTHYROXINE SODIUM 100 MCG TABLET PO SCH (05:35)
[2022-11-14] MEDS: ACETAMINOPHEN 325 MG TAB PO PRN ×2 (05:35→17:00)
[2022-11-14] MEDS: SODIUM BICARBONATE 8.4% 150 MEQ in DEXTROSE 5% 1,000 ML IV SCH (05:36)
--- NOTE | 2022-11-14 06:52 | Hospitalist Progress Note ---
Date of Service November 14, 2022 Assessment & Plan (1) Breath shortness: Plan: 87-year-old male with history of atrial fibrillation on Pradaxa anticoagulation, hypertension, GERD, HFpEF, hyperlipidemia and CKD presenting with progressive shortness of breath and poor appetite. #SOB #Pleural Effusion #HFpEF #Fluid Overload Most likely multifactorial. Patient with evidence of volume overload on physical exam to include edema, right-sided pleural effusion, mild elevation of BNP and troponin. He was given Lasix 40 mg IV in the ER and has urinated once since receiving this medication. Patient does have h/o pneumonia last month. Patient had echo in during his most recent hospital stay which revealed EF of 50 to 54% and mild pulmonary hypertension. - CXR: Interval progression of the moderate right pleural effusion and right perihilar opacities, mild pulmonary edema and a trace left pleural effusion persists CT chest: Large right pleural effusion, significantly increased in size since prior chest CT. Associated right lower lobe collapse and segmental right middle and upper lobe atelectasis. Continue Lasix 40 mg IV daily. However, has not produced much urine thus far and bladder scan with minimal urine. Monitor I/Os, daily weights, supplemental oxygen as needed. Trend troponin. EKG with ST depressions in anterolateral leads. - Procal 1.66. MRSA nares neg. - Pulmonology consulted -cont. diuresis for now -cont. palliative conversation given poor prognosis -s/p thoracentesis (11/13), chest tube in place. Post CXR with significant decrease in pleural effusion. #CKD stage 4 #Oliguria -Cr 2 at admission, which is near his baseline -- today to 1.96 -diuresis as above, however, not producing much urine thus far -- about 200cc of urine since yesterday -oliguria and worsening Cr -nephrology consulted -given medical comorbidities and age, pt would not benefit significantly from dialysis if kidney dysfunction progresses -there will be some permissive rise in creatinine with diuresis and associated changes in EAV -poor prognosis overall, palliative discussion in the works #S/p cholecystectomy with bile leak #S/p ERCP with stent placement Late in his last hospitalization he developed acute RUQ pain and was found to have acute cholecystitis.He was treated with IV Unasyn then Zosyn.Despite IV antibiotics he continued to decline therefore was transferred to [facility].There he was found to have a necrotic gallbladder s/p cholecystectomy (10/15/2022) complicated by bile leak and development of biloma.Patient had an ERCP with deployment of drainage stent in the common bile duct on 10/21/2022. - PEDRO drain in place. Apparently drain was to be removed around today. - Drainage stent was to be removed next week. - ALP consistently elevated since cholecystectomy - Gen srug consulted -PEDRO output normal -Recommend leaving drain in given more acute issues -PEDRO drain and stent can remain for several more weeks; no urgency for removal #acute on chronic anemia -Hgb 9s on admission, near baseline -now in 7s this morning with unclear etiology. Expect mild drop s/p thoracentesis which also produced serosanguineous fluid (?blood loss to pleural effusion) -FOBT ordered -H&H 11/13 was 6.8 -- transfused 1U PRBCs and up to 8.6 -repeat iron studies pending -hold Pradaxa #Severe protein calorie malnutrition As noted during previous hospitalization, patient with persistent failure to thrive in the adult. He has been seen by palliative care team to assist with management of his symptoms. Patient reports that he has not been able to eat a decent meal for over 3 weeks due to lack of appetite. Discussed with him that this is most likely multifactorial, combination of his recent illness and hospitalization as well as age. Patient's anorexia was addressed during his previous hospital stay. Encourage oral intake. Will order heart healthy diet, mechanical soft Boost (ernst flavored preferred) twice daily Consider Remeron for appetite stimulation #Pressure ulcer Reported by patient and . -wound care consulted -Turn/position q2h #COPD Patient with some end expiratory wheezing appreciated in bilateral lung milan. He denies cough or sputum production. DuoNeb every 4 hours Albuterol every 2 hours as needed #HLD Chronic. Stable. Continue atorvastatin 80mg daily #Parkinsons Chronic. Stable. Continue carbidopa levodopa #GERD Chronic. Protonix 40 mg daily #Permanent Afib Rate controlled. Patient is anticoagulated on Pradaxa 75mg bid but is not on any rate controlling agents at this time. hold pradexa as above #Hypothyroidism Chronic. Stable. Last TSH = 3.139 on 06/24/2022. Continue Synthroid 100 mcg p.o. daily #HTN Blood pressure appropriately controlled at present Continue clonidine 0.1 mg p.o. twice daily Continue to hold patient's amlodipine #Sleep Apnea Chronic. Patient reports compliance with his home CPAP. CPAP at 11 cmH2O nightly DVT ppx: Pradaxa on hold given anemia. SCDs for now. FEN/GI: HH, renal Code Status: DNR/DNI Dispo: med tele (2) Severe protein-calorie malnutrition: (3) History of cholecystectomy: (4) COPD (chronic obstructive pulmonary disease): (5) Dyslipidemia: (6) Parkinson's disease: (7) GERD (gastroesophageal reflux disease): (8) Permanent atrial fibrillation: (9) Hypothyroidism: (10) Hypertension: (11) Apnea, sleep: Admission and Anticipated Discharge Date Admission Date: November 12, 2022 Supervising Physician Co-Signing Physician Notes I also saw the patient with the resident physician and confirmed ji portions of the history and physical examination. I also discussed the case with the palliative care consult. I agree with the impression and plan as noted in the resident documentation, and as summarized below. Exam 122/63, 78, 16, 36.9, 96 on nasal cannula at 3 L/min Patient is seated at the bedside edge. He notes easier work of breathing today. Less short of breath. At the time of our midmorning exam, chest tube is draining, although less so than yesterday. Data WBC 11.48, hemoglobin 8.6, platelet count 366 Sodium 135, potassium 3.4, BUN 46, creatinine 1.96 Impression and plan After discussion with family and palliative care, patient is elected for home with hospice Large, loculated pleural effusion s/p thoracentesis with chest tube -improved with drainage; seen this afternoon by pulmonary medicine, and tube pulled given scant output Additional per resident documentation Plan is for return [facility] with hospice Subjective Pt seen at bedside this morning. Feels much better from breathing standpoint. Denies headache, chest pain, abd pain, constipation, diarrhea, dysuria, nausea, vomiting. He confirmed again that he thinks palliative/hospice route would be more in line with his wishes -- wants to talk to his family today to confirm. Review of Systems Review of Systems: per HPI Physical Exam Physical Exam: General: frail, chronically ill in appearance, answers questions appropriately Skin: warm, dry, bandage present on left lower extremity HEENT: NC/AT, EOMI, anicteric sclera, conjunctiva without injection, moist mucus membranes, neck supple, trachea midline, no LAD, no thyromegaly, no JVD Heart: +S1/S2, irregularly irregular, no m/r/g Lungs: mild abdominal retractions, speaking in complete sentences, diminished breath sounds in bilateral bases R>L, crackles present in right lung, faint end expiratory wheezing bilaterally Abd: +BS, soft, nontender, nondistended, ventral hernia present which is soft and reducible, PEDRO drain in place, no masses/organomegaly/ascites Ext: warm, 2+ pulses in UE/LE bilaterally, no clubbing/cyanosis, 2+ pitting edema bilateral lower extremities Neuro: nonfocal, AOx3, speech intact Results & Data Results & Data ([facility]) Vital Signs (Past 12 Hours) Vital Signs Temp Pulse Pulse Resp BP BP Pulse Ox 11/14/22 06:00 96 11/14/22 03:49 37.7 C H 76 22 127/68 96 11/14/22 03:06 11/14/22 02:49 36.4 C L 81 16 137/64 95 11/14/22 02:43 77 24 97 11/14/22 02:42 77 24 97 11/14/22 01:49 36.5 C 75 17 136/60 96 11/13/22 22:24 74 11/14/22 01:19 36.8 C 72 16 129/66 96 11/14/22 01:04 36.4 C L 73 16 137/57 L 96 11/14/22 00:46 36.5 C 73 20 139/61 94 11/13/22 22:50 83 26 H 92 11/13/22 22:48 82 22 96 11/13/22 22:29 36.5 C 61 16 109/57 L 95 11/13/22 19:57 36.6 C 74 20 125/60 94 11/13/22 19:40 74 22 96 11/13/22 19:36 Pulse Ox O2 Del Method O2 Del Method O2 Flow Rate O2 Flow Rate 11/14/22 06:00 Nasal Cannula 4 11/14/22 03:49 11/14/22 03:06 94 BiPAP 4 11/14/22 02:49 11/14/22 02:43 4 11/14/22 02:42 BiPAP 4 11/14/22 01:49 11/13/22 22:24 11/14/22 01:19 11/14/22 01:04 11/14/22 00:46 11/13/22 22:50 4 11/13/22 22:48 Nasal Cannula 4 11/13/22 22:29 Nasal Cannula 4 11/13/22 19:57 Nasal Cannula 4 11/13/22 19:40 Nasal Cannula 4 11/13/22 19:36 Nasal Cannula 4 Resident Activity Tracking Resident Involvement: Resident Care Provided Care Provided: Adult Hospital Medicine (11) Apnea, sleep Sleep apnea type: obstructive Qualified Code(s): G47.33 - Obstructive sleep apnea (adult) (pediatric)
[2022-11-14 07:13] LABS: Albumin Level 2.2 gm/dl (3.4-5.0); BUN Creatinine Ratio 23.5 (10-20); Bilirubin,Total 0.6 mg/dl (0.2-1.0); Calcium 7.9 mg/dl (8.5-10.1); Creatinine Clr Calc Pharmacy 23.9 ml/min; Est GFR (African American) 34.1 ml/min; Est GFR (Non-African American) 29.4 ml/min; Potassium 3.4 mmol/L (3.5-5.1); Total Protein 5.4 gm/dl (6.0-8.3)
[2022-11-14 07:17] LABS: Albumin Globulin Ratio 0.7 (0.9-2); Globulin 3.2 gm/dl (2.5-4.0)
[2022-11-14 07:19] LABS: Hematocrit (blood only) 25.4 % (42.0-52.0); Hemoglobin 8.6 g/dl (14.0-18.0); Mean Corpuscular Hgb Conc 33.9 g/dL (32.0-36.0); Mean Corpuscular Volume 85.5 fL (80.0-100.0); Mean Platelet Volume 11.3 fL (9.4-12.4); Platelet Count 366 K/uL (130-400); RDW Coefficient of Variation 16.7 % (11.5-14.5); RDW Standard Deviation 51.3 fL (36.4-46.3); Red Blood Count 2.97 M/uL (4.70-6.10); White Blood Count 11.48 K/ul (4.8-10.8)
[2022-11-14 07:52] LABS: Acanthocytes 2+; Basophils # (auto) 0.03 K/uL (0-0.2); Basophils % (auto) 0.3 %; Echinocytes 1+; Eosinophils # (auto) 0.15 K/uL (0-0.50); Eosinophils % (auto) 1.3 %; Immature Granulocytes # (auto) 0.68 K/uL (0.01-0.20); Immature Granulocytes % (auto) 5.9 %; Lymphocytes # (auto) 1.01 K/uL (1.2-3.4); Lymphocytes % (auto) 8.8 %; Monocytes # (auto) 0.96 K/uL (0.11-0.59); Monocytes % (auto) 8.4 %; Neutrophils # (auto) 8.65 K/uL (1.40-6.50); Neutrophils % (auto) 75.3 %; Polychromasia 1+
[2022-11-14] MEDS: CALCITRIOL 0.25 MCG CAPSULE PO SCH (08:09)
[2022-11-14] MEDS: CARBIDOPA/LEVODOPA 25/100MG TAB PO SCH ×3 (08:09→17:00)
[2022-11-14] MEDS: allopurinoL 100 MG TAB PO SCH (08:09)
[2022-11-14] MEDS: cloNIDine HCL 0.1 MG TAB PO SCH ×2 (08:09→20:24)
[2022-11-14] MEDS: FUROSEMIDE 40 MG/4 ML VIAL IV SCH (08:10)
--- NOTE | 2022-11-14 09:48 | XRay Report ---
XR chest 1V portable CLINICAL HISTORY: follow up drainage TECHNIQUE: Single frontal radiograph of the chest was obtained. Comparison: Comparison is made to chest radiograph 11/13/2022 FINDINGS: Dual lead pacemaker is seen. Right pleural drainage catheter is unchanged. Cardiomegaly is noted. The aortic arch is calcified. Lungs are essentially clear apart from atelectasis. Redemonstration of sma ll right pleural effusion. And no atelectasis is seen. Trace left pleural effusion cannot be entirely excluded. IMPRESSION: Small right and possible trace left pleural effusions are stable. Right pleural drainage catheter is in place. No pneumothorax. ACT 112: Negative or not required by law. Electronically signed by: Bubba Charlton M.D. 11/14/2022 9:47 AM
--- NOTE | 2022-11-14 10:08 | Pulmonology Progress Note ---
Date of Service November 14, 2022 Assessment & Plan (1) Pleural effusion: (2) History of cholecystectomy: (3) Acute heart failure with preserved ejection fraction (HFpEF): (4) Acute respiratory failure with hypoxia: (5) Acute dyspnea: Plan Status post pigtail catheter placement on the right 11/13/2022. Approximately 2 L of pleural fluid has been removed. This appears to be an exudate. Gram stain negative thus far. Cytology pending. Continue with broad-spectrum antibiotics. Dyspnea symptoms improved with drainage. We will discontinue catheter once less than 100 mL of pleural fluid out in a 24- hour period. Thank you for the consultation. We will continue to follow along with you. Admission and Anticipated Discharge Date Admission Date: November 12, 2022 Subjective Patient feeling much less short of breath since chest tube insertion. He denies any significant pain. No cough. Remains weak. Review of Systems Review of Systems: All systems reviewed & are unremarkable except as noted in HPI & below Physical Exam Physical Exam: Constitutional: Patient appears to be of their stated age. Patient is in no apparent distress. Patient is well-developed. Eyes: Pupils are equal round and reactive to light. Conjunctivae are normal. Anicteric sclera. Ears nose, mouth and throat: Mallampati class 2. Normal posterior oropharynx. Uvula is midline. Neck: Trachea is midline. Visual inspection is normal. Respiratory: Crackles on the right. Prolonged phase of exhalation. No wheezes. Cardiovascular: Regular rate and rhythm. No murmurs. No edema. Gastrointestinal: Normal bowel sounds, soft, nontender and nondistended. No hepatosplenomegaly noted. Musculoskeletal: Diffusely weak. Able to move all extremities. Skin: No rashes, warm dry and intact. Neurologic: No obvious focal neurological deficits seen. Psychiatric: Alert and oriented x3 with a euthymic affect. Results & Data Results & Data ([facility]) Vital Signs (Past 12 Hours) Vital Signs Temp Pulse Pulse Resp BP BP Pulse Ox 11/14/22 09:56 70 11/14/22 08:00 36.4 C L 90 14 148/61 H 95 11/14/22 07:41 70 22 97 11/14/22 06:00 96 11/14/22 03:49 37.7 C H 76 22 127/68 96 11/14/22 03:06 11/14/22 02:49 36.4 C L 81 16 137/64 95 11/14/22 02:43 77 24 97 11/14/22 02:42 77 24 97 11/14/22 01:49 36.5 C 75 17 136/60 96 11/13/22 22:24 74 11/14/22 01:19 36.8 C 72 16 129/66 96 11/14/22 01:04 36.4 C L 73 16 137/57 L 96 11/14/22 00:46 36.5 C 73 20 139/61 94 11/13/22 22:50 83 26 H 92 11/13/22 22:48 82 22 96 11/13/22 22:29 36.5 C 61 16 109/57 L 95 Pulse Ox O2 Del Method O2 Del Method O2 Flow Rate O2 Flow Rate 11/14/22 09:56 11/14/22 08:00 Nasal Cannula 11/14/22 07:41 Nasal Cannula 4 11/14/22 06:00 Nasal Cannula 4 11/14/22 03:49 11/14/22 03:06 94 BiPAP 4 11/14/22 02:49 11/14/22 02:43 4 11/14/22 02:42 BiPAP 4 11/14/22 01:49 11/13/22 22:24 11/14/22 01:19 11/14/22 01:04 11/14/22 00:46 11/13/22 22:50 4 11/13/22 22:48 Nasal Cannula 4 11/13/22 22:29 Nasal Cannula 4 PG Care Time/CCT Total # of Minutes Spent Total Time Spent with Patient: Total time spent is greater than 50% in coordination of care (as documented) at patient's floor/unit and/or counseling patient: Coding Level of Care Code 13814 SUB INP/OBS CARE 2/35MIN Diagnoses Pleural effusion J90 History of cholecystectomy Z90.49 Acute heart failure with preserved ejection fraction (HFpEF) I50.31 Acute respiratory failure with hypoxia J96.01 Acute dyspnea R06.00
[2022-11-14] MEDS ORDERED: POTASSIUM CHLORIDE CRTAB 20 MEQ TABCR PO STA (10:25)
--- NOTE | 2022-11-14 11:04 | Nephrology Progress Note ---
Date of Service November 14, 2022 Assessment & Plan (1) Acute renal insufficiency: Plan: Electrolytes acceptable. Non-oliguric. Creatinine stable. No emergent indication for dialysis. Given frailty, medical comorbidities, and age, Jimi would not benefit from dialysis if kidney dysfunction progresses. He expressed agreement. I would continue to avoid YANELY/ARB for now given advanced kidney dysfunction. Medications are appropriately dosed for kidney function. Ultimately, for consideration, there is likely more evidence for the use of apixaban in CKD than dabigatran. Continue calcitriol as Rx. (2) Chronic kidney disease, stage IV (severe): Plan: Baseline creatinine 1.6-2.0 mg/dL. CKD attributed to history of hypertension and renovascular disease. No evidence of obstruction. (3) Anemia: Plan: Iron profile acceptable. 1 u PRBC transfusion suport provided yesterday. (4) Acute heart failure with preserved ejection fraction (HFpEF): Plan: Remains on furosemide 40 mg IV daily. Goal is to continue to encourage a slightly negative daily fluid balance. (5) Severe pulmonary hypertension: Plan: Prognosis guarded. Consider palliative care consultation. (6) Pleural effusion: Plan: s/p thoracentesis yesterday with CT placement. Noted improvement in respiratory status. Admission and Anticipated Discharge Date Admission Date: November 12, 2022 Subjective No acute events overnight. Significant improvement in dyspnea with thoracentesis and chest tube placement. Breathing relatively comfortably. Reiterated primary goal of comfort this AM. Confirmed that dialysis will not be considered as part of treatment plan. Thankfully, aware that kidney function is stable. Review of Systems Review of Systems: All systems reviewed & are unremarkable except as noted in HPI & below Physical Exam Constitutional: + acute distress, + ill appearing and + cachectic Eyes: + anicteric sclerae ENMT: Mouth: + dry oral mucous membranes Neck: normal visual inspection and trachea midline Respiratory: + labored breathing and + tachypneic Auscultation: + rales Cardiovascular: Rate/Rhythm: regular rate Heart Sounds: normal S1 and normal S2 Extremities: + pedal edema and + varicosities Musculoskeletal: Extremities: no cyanosis and no clubbing Skin: + turgor decreased and + ecchymosis; no jaundice Neurologic: Motor/Sensory: no tremor and no asterixis Psychiatric: Orientation: alert and oriented x 3 Results & Data ([facility]) Vital Signs (Past 12 Hours) Vital Signs Temp Pulse Pulse Resp BP BP Pulse Ox 11/14/22 09:56 70 11/14/22 08:00 36.4 C L 90 14 148/61 H 95 11/14/22 07:41 70 22 97 11/14/22 06:00 96 11/14/22 03:49 37.7 C H 76 22 127/68 96 11/14/22 03:06 11/14/22 02:49 36.4 C L 81 16 137/64 95 11/14/22 02:43 77 24 97 11/14/22 02:42 77 24 97 11/14/22 01:49 36.5 C 75 17 136/60 96 11/14/22 01:19 36.8 C 72 16 129/66 96 11/14/22 01:04 36.4 C L 73 16 137/57 L 96 11/14/22 00:46 36.5 C 73 20 139/61 94 Pulse Ox O2 Del Method O2 Del Method O2 Flow Rate O2 Flow Rate 11/14/22 09:56 11/14/22 08:00 Nasal Cannula 11/14/22 07:41 Nasal Cannula 4 11/14/22 06:00 Nasal Cannula 4 11/14/22 03:49 11/14/22 03:06 94 BiPAP 4 11/14/22 02:49 11/14/22 02:43 4 11/14/22 02:42 BiPAP 4 11/14/22 01:49 11/14/22 01:19 11/14/22 01:04 11/14/22 00:46 Laboratory Results Laboratory Results - last 24 hr 11/12/22 11/13/22 11/13/22 01:53 14:30 14:30 WBC RBC Hgb Hct MCV MCH MCHC RDW Std Deviation RDW Coeff of Italo Plt Count MPV Immature Gran % (Auto) Neut % (Auto) Lymph % (Auto) Piatt % (Auto) Eos % (Auto) Baso % (Auto) Neut # (Auto) Lymph # (Auto) Piatt # (Auto) Eos # (Auto) Baso # (Auto) Immature Gran # (Auto) Polychromasia Echinocytes Acanthocytes (Spur) Sodium Potassium Chloride Carbon Dioxide Anion Gap BUN Creatinine Est Cr Clr Drug Dosing Est GFR ( Amer) Est GFR (Non-Af Amer) BUN/Creatinine Ratio Glucose Calcium Iron TIBC Unsaturated IBC Transferrin % Sat Ferritin Total Bilirubin AST ALT Alkaline Phosphatase Lactate Dehydrogenase Total Protein Albumin Globulin Albumin/Globulin Ratio Fluid Neutrophils % 63 Fluid Lymphocytes % 8 Fluid Meso/Macro/Piatt % 29 Fluid Comment Peritoneal LDH Cancelled Peritoneal Glucose Cancelled Peritoneal Amylase Cancelled Pleural Fluid Source Right Lung Pleural Color Astor Pleural Appearance Hazy Pleural pH Pleural WBC (Auto) 2807 Pleural RBC (Auto) 24884 Pleural Total Protein Pleural LDH Pleural Glucose Pleural Amylase Nasal Screen MRSA (PCR) Blood Type B Positive Antibody Screen NEGATIVE Crossmatch See Detail 11/13/22 11/13/22 11/13/22 14:30 14:30 15:04 WBC RBC Hgb 7.5 L Hct 22.9 L MCV MCH MCHC RDW Std Deviation RDW Coeff of Italo Plt Count MPV Immature Gran % (Auto) Neut % (Auto) Lymph % (Auto) Piatt % (Auto) Eos % (Auto) Baso % (Auto) Neut # (Auto) Lymph # (Auto) Piatt # (Auto) Eos # (Auto) Baso # (Auto) Immature Gran # (Auto) Polychromasia Echinocytes Acanthocytes (Spur) Sodium Potassium Chloride Carbon Dioxide Anion Gap BUN Creatinine Est Cr Clr Drug Dosing Est GFR ( Amer) Est GFR (Non-Af Amer) BUN/Creatinine Ratio Glucose Calcium Iron TIBC Unsaturated IBC Transferrin % Sat Ferritin Total Bilirubin AST ALT Alkaline Phosphatase Lactate Dehydrogenase Total Protein Albumin Globulin Albumin/Globulin Ratio Fluid Neutrophils % Fluid Lymphocytes % Fluid Meso/Macro/Piatt % Fluid Comment Peritoneal LDH Peritoneal Glucose Peritoneal Amylase Pleural Fluid Source Pleural Color Pleural Appearance Pleural pH 7.31 Pleural WBC (Auto) Pleural RBC (Auto) Pleural Total Protein < 3.0 Pleural LDH 2147 Pleural Glucose 77 Pleural Amylase 42 Nasal Screen MRSA (PCR) Blood Type Antibody Screen Crossmatch 11/13/22 11/13/22 11/13/22 15:04 15:04 16:15 WBC RBC Hgb Hct MCV MCH MCHC RDW Std Deviation RDW Coeff of Italo Plt Count MPV Immature Gran % (Auto) Neut % (Auto) Lymph % (Auto) Piatt % (Auto) Eos % (Auto) Baso % (Auto) Neut # (Auto) Lymph # (Auto) Piatt # (Auto) Eos # (Auto) Baso # (Auto) Immature Gran # (Auto) Polychromasia Echinocytes Acanthocytes (Spur) Sodium Potassium Chloride Carbon Dioxide Anion Gap BUN Creatinine Est Cr Clr Drug Dosing Est GFR ( Amer) Est GFR (Non-Af Amer) BUN/Creatinine Ratio Glucose Calcium Iron TIBC Unsaturated IBC Transferrin % Sat Ferritin Total Bilirubin AST ALT Alkaline Phosphatase Lactate Dehydrogenase 263 H Total Protein 5.8 L Albumin Globulin Albumin/Globulin Ratio Fluid Neutrophils % Fluid Lymphocytes % Fluid Meso/Macro/Piatt % Fluid Comment Peritoneal LDH Peritoneal Glucose Peritoneal Amylase Pleural Fluid Source Pleural Color Pleural Appearance Pleural pH Pleural WBC (Auto) Pleural RBC (Auto) Pleural Total Protein Pleural LDH Pleural Glucose Pleural Amylase Nasal Screen MRSA (PCR) Negative Blood Type Antibody Screen Crossmatch 11/13/22 11/14/22 11/14/22 22:29 05:46 05:46 WBC 11.48 H RBC 2.97 L Hgb 6.8 L* 8.6 L Hct 20.3 L* 25.4 L MCV 85.5 MCH 29.0 MCHC 33.9 RDW Std Deviation 51.3 H RDW Coeff of Italo 16.7 H Plt Count 366 MPV 11.3 Immature Gran % (Auto) 5.9 Neut % (Auto) 75.3 Lymph % (Auto) 8.8 Piatt % (Auto) 8.4 Eos % (Auto) 1.3 Baso % (Auto) 0.3 Neut # (Auto) 8.65 H Lymph # (Auto) 1.01 L Piatt # (Auto) 0.96 H Eos # (Auto) 0.15 Baso # (Auto) 0.03 Immature Gran # (Auto) 0.68 H Polychromasia 1+ Echinocytes 1+ Acanthocytes (Spur) 2+ Sodium 135 L Potassium 3.4 L Chloride 99 Carbon Dioxide 27 Anion Gap 9 BUN 46 H Creatinine 1.96 H Est Cr Clr Drug Dosing 23.9 Est GFR ( Amer) 34.1 Est GFR (Non-Af Amer) 29.4 BUN/Creatinine Ratio 23.5 H Glucose 134 H Calcium 7.9 L Iron 30 L TIBC 90 L Unsaturated IBC 60 L Transferrin % Sat 33 Ferritin 2123.0 H Total Bilirubin 0.6 AST 23 ALT 3 L Alkaline Phosphatase 119 H Lactate Dehydrogenase Total Protein 5.4 L Albumin 2.2 L Globulin 3.2 Albumin/Globulin Ratio 0.7 L Fluid Neutrophils % Fluid Lymphocytes % Fluid Meso/Macro/Piatt % Fluid Comment Peritoneal LDH Peritoneal Glucose Peritoneal Amylase Pleural Fluid Source Pleural Color Pleural Appearance Pleural pH Pleural WBC (Auto) Pleural RBC (Auto) Pleural Total Protein Pleural LDH Pleural Glucose Pleural Amylase Nasal Screen MRSA (PCR) Blood Type Antibody Screen Crossmatch PG Care Time/CCT Total # of Minutes Spent Total Time Spent with Patient: Total time spent is greater than 50% in coordination of care (as documented) at patient's floor/unit and/or counseling patient: Coding Level of Care Code 82030 SUB INP/OBS CARE 3/50MIN Diagnoses Acute renal insufficiency N28.9 Chronic kidney disease, stage IV (severe) N18.4 Anemia D64.9 Acute heart failure with preserved ejection fraction (HFpEF) I50.31 Severe pulmonary hypertension I27.20 Pleural effusion J90
[2022-11-14] MEDS: levoFLOXacin 750 MG TAB PO SCH (11:49)
--- NOTE | 2022-11-14 12:02 | Palliative Care Consultation ---
Date of Consultation November 14, 2022 Assessment & Plan (1) Shortness of breath: Improved with pleuracentesis. (2) Failure to thrive in adult: With 20lb weight loss since June. Multiple comorbidities (3) Debility: Family feels that his his not able to manage care for him at home at this time and would prefer that she be able to focus on the time that they have together. (4) Palliative care encounter: Met with Vel, his and two sons, along with Dr. Giraldo. Vel feels that he would prefer focus of care to be comfort and symptom management at this point. Family supports this decision. We discussed hospice care to provide additional support and focus on symptom management at [facility]. We discussed hospice benefit and what is provided. We discussed reviewing medications and focusing on those that will help Vel feel better at this time. Med list reviewed with Dr. Giraldo.. Answered questions about symptom management. Explained that case management will coordinate discharge to [facility] with hosp [facility]. History of Present Illness Reason for Consultation: goals of care Requesting Physician: Dr. Torres Attending Physician: Ayden Pillai DO History of Present Illness 87 yo gentleman with history of HFpEF, severe pulmonary hypertension, COPD, afib with pacemaker placement, Parkinson's disease and CKD. He has had ongoing problems with failure to thrive for several months. He was hospitalized in September with heart failure exacerbation and abdominal pain with leukocytosis. He was thought to have with progressive leukocytosis and elevated bilirubin. After discussion with Mr. Ramsay and his family, it was decided that he would like to pursue transfer to tertiary care hospital for possible high risk cholecystectomy and he was transferred to [facility]. He subsequently had cholecystectomy for necrotic gallbladder. He developed post operative bile leak and biloma requiring ERCP and stent placement. He was subsequently discharged to [facility] for rehab. He was admitted to [facility] for shortness of breath and volume overload. He had pleurx catheter placement for right pleural effusion. He has also had acute on chronic renal failure. Allergies Allergy/AdvReac Type Severity Reaction Status Date / Time hydralazine AdvReac Severe anorexia,h/ Verified 11/12/22 01:49 a,nausea,pa lpitations Home Medications Medication Instructions Recorded Confirmed Type CPAP Machine #10 ea 07/13/19 09/24/22 Rx CPAP Machine #1 ea 04/24/20 09/24/22 Rx levothyroxine 100 mcg tablet 100 mcg PO QAM #90 tabs 02/11/22 11/12/22 Rx Saccharomyces boulardii 250 mg 250 mg PO QPM 11/12/22 11/12/22 History capsule (Florastor) acetaminophen 325 mg tablet 650 mg PO Q4H PRN PAIN/FEVER 11/12/22 11/12/22 History (Tylenol) allopurinol 100 mg tablet 100 mg PO QAM 11/12/22 11/12/22 History atorvastatin 80 mg tablet 80 mg PO PM 11/12/22 11/12/22 History bisacodyl 10 mg rectal suppository 10 mg MO Q OTHER DAY PRN 11/12/22 11/12/22 History Constipation calcitriol 0.5 mcg capsule 0.5 mcg PO QAM 11/12/22 11/12/22 History carbidopa 25 mg-levodopa 100 mg 1 tab PO TIDM 11/12/22 11/12/22 History tablet clindamycin HCl 300 mg capsule 300 mg PO Q6H 11/12/22 11/12/22 History clonidine HCl 0.1 mg tablet 0.1 mg PO BID 11/12/22 11/12/22 History dabigatran etexilate 75 mg capsule 75 mg PO BID 11/12/22 11/12/22 History (Pradaxa) levofloxacin 750 mg tablet 750 mg PO Q OTHER DAY 11/12/22 11/12/22 History omeprazole 40 mg capsule,delayed 40 mg PO QAM 11/12/22 11/12/22 History release tiotropium bromide 1.25 2 puff inhalation QAM 11/12/22 11/12/22 History mcg/actuation mist for inhalation (Spiriva Respimat) Patient History Medical History Anemia Anticoagulant long-term use Carotid artery stenosis Chronic constipation Chronic kidney disease, stage 3 (moderate) Dyslipidemia Former smoker GERD (gastroesophageal reflux disease) Gout History of DVT (deep vein thrombosis) HTN (hypertension) Hypothyroid Pacemaker (01/2021) Parkinson's disease Permanent atrial fibrillation Pleural effusion Subdural hematoma (2006) Surgical History H/O vasectomy History of appendectomy History of renal stent (2006) Right History of renal stent (2008) Left Hx of tonsillectomy S/P carotid endarterectomy (1994) S/P insertion of inferior vena caval filter Family History Father Diabetes Denies family history of Ovarian cancer Prostate cancer Myocardial infarction Breast cancer Lung cancer Colorectal cancer Stroke Social History Smoking Status: Former smoker Age Started Using Tobacco: 12; Age Quit Using Tobacco: 53; packs per day: 1; Cigarettes Per Day: 20; Second Hand Exposure: No; Hx Alcohol Use: Yes Alcohol type: beer Hx Substance Use: No Preferred Language: Monegasque Communication Ability: Effective Visual Impairment: No Limitations Hearing Ability: Normal Tumbling And Rolling Supervisor Required: No Beliefs That Will Affect Care: Quaker marital status: Current Living Situation: Spouse Current Living Situation Comment: from home current occupational status: retired Feels Safe at Home: Yes Childhood Exposure to Second-Hand Smoke: Yes during the past year weight has: remained stable Physical Activity Frequency: Daily Physical Activity Frequency Comment: walks a mile every day in nice weather Seatbelt Use: always Assistive Devices: CPAP, Oxygen - at Night, Walker and Wheelchair Review of Systems Review of Systems: ESAS Pain 0/3 Drowsiness 0/3 Nausea 0/3 Dyspnea 0/3 Physical Exam Constitutional: + frail appearing Respiratory: chest tube to suction, serous fluid uses accessory muscles Musculoskeletal: Extremities: + muscle atrophy Neurologic: Speech / Cognition: normal cognition Results & Data ([facility]) Vital Signs (Past 12 Hours) Vital Signs Temp Pulse Pulse Resp BP BP Pulse Ox 11/14/22 11:12 77 22 95 11/14/22 09:56 70 11/14/22 08:00 97.5 F L 90 14 148/61 H 95 11/14/22 07:41 70 22 97 11/14/22 06:00 96 11/14/22 03:49 99.9 F H 76 22 127/68 96 11/14/22 03:06 11/14/22 02:49 97.5 F L 81 16 137/64 95 11/14/22 02:43 77 24 97 11/14/22 02:42 77 24 97 11/14/22 01:49 97.7 F 75 17 136/60 96 11/14/22 01:19 98.2 F 72 16 129/66 96 11/14/22 01:04 97.5 F L 73 16 137/57 L 96 11/14/22 00:46 97.7 F 73 20 139/61 94 Pulse Ox O2 Del Method O2 Del Method O2 Flow Rate O2 Flow Rate 11/14/22 11:12 Nasal Cannula 3 11/14/22 09:56 11/14/22 08:00 Nasal Cannula 11/14/22 07:41 Nasal Cannula 4 11/14/22 06:00 Nasal Cannula 4 11/14/22 03:49 11/14/22 03:06 94 BiPAP 4 11/14/22 02:49 11/14/22 02:43 4 11/14/22 02:42 BiPAP 4 11/14/22 01:49 11/14/22 01:19 11/14/22 01:04 11/14/22 00:46 PG Care Time/CCT Total # of Minutes Spent Total Time Spent: 55 Total Time Spent with Patient: Total time spent is greater than 50% in coordination of care (as documented) at patient's floor/unit and/or counseling patient:[id number] goals of care, symptom management, hospice, patient and family education and support Coding Level of Care Code 12107 INT INP/OBS CARE 2/55MIN Diagnoses Shortness of breath R06.02 Failure to thrive in adult R62.7 Debility R53.81 Palliative care encounter Z51.5
--- NOTE | 2022-11-14 16:58 | Procedure Note ---
Procedure Note Date of Service November 14, 2022 Note Minimal chest tube drainage over last 12 hours. D/w family and patient. Decision made to remove CT. Dressing taken down. Sutures removed. CT pulled upon exhalation. No acute issues. Occlusive dressing placed over incision site. Pulm to sign off. Thank you for allowing us to participate in the care of the patient. Coding CPT Codes Pulmonary/Thoracic - Pulmonary and Thoracic: 16497 Remove lung catheter ([id number]) [facility] [place] [facility] Procedure Codes (Charges) Pulmonary/Thoracic Procedure 1: Pulmonary and Thoracic: 89057 Remove lung catheter
[2022-11-14] MEDS: ATORVASTATIN 40 MG TAB PO SCH (17:00)
[2022-11-14] MEDS ORDERED: ALBUT/IPRATROP 3MG/0.5MG NEB 3 ML VIAL NEB SCH (21:00)
[2022-11-15] MEDS: CLINDAMYCIN HCL 150 MG CAP PO SCH ×4 (06:01→23:09)
[2022-11-15] MEDS: LEVOTHYROXINE SODIUM 100 MCG TABLET PO SCH (06:01)
[2022-11-15] MEDS: ALBUT/IPRATROP 3MG/0.5MG NEB 3 ML VIAL NEB SCH ×4 (07:01→19:09)
--- NOTE | 2022-11-15 07:42 | XRay Report ---
XR chest 1V portable CLINICAL HISTORY: follow chest tube COMPARISON STUDY: Chest CT November 12, 2022. Chest radiograph November 14, 2022. FINDINGS: Right pleural catheter has been removed. There is no pneumothorax. Small residual right ple ural effusion is unchanged. There is a small left pleural effusion. Bilateral airspace opacities pers ist as well as pulmonary edema. Left subclavian pacer. Cardiomegaly is unchanged. IMPRESSION: 1. No pneumothorax following right pleural catheter removal. Stable small residual right pleural effu vivek. 2. No change in a small left pleural effusion. Stable interstitial pulmonary edema. ACT 112: Negative or not required by law. Electronically signed by: Xu Stiles M.D. 11/15/2022 7:40 AM
[2022-11-15] MEDS: CARBIDOPA/LEVODOPA 25/100MG TAB PO SCH ×3 (07:49→16:49)
[2022-11-15] MEDS: cloNIDine HCL 0.1 MG TAB PO SCH (07:49)
[2022-11-15] MEDS: FUROSEMIDE 40 MG/4 ML VIAL IV SCH (07:49)
[2022-11-15] MEDS: CALCITRIOL 0.25 MCG CAPSULE PO SCH (07:50)
[2022-11-15] MEDS: allopurinoL 100 MG TAB PO SCH (07:50)
--- NOTE | 2022-11-15 07:53 | Hospitalist Progress Note ---
Date of Service November 15, 2022 Assessment & Plan (1) Breath shortness: Plan: 87-year-old male with history of atrial fibrillation on Pradaxa anticoagulation, hypertension, GERD, HFpEF, hyperlipidemia and CKD presenting with progressive shortness of breath and poor appetite. SOB, pleural effusion, HFpEF, fluid overload Most likely multifactorial. Patient with evidence of volume overload on physical exam to include edema, right-sided pleural effusion, mild elevation of BNP and troponin. He was given Lasix 40 mg IV in the ER and has urinated once since receiving this medication. Patient does have h/o pneumonia last month. Patient had echo in during his most recent hospital stay which revealed EF of 50 to 54% and mild pulmonary hypertension. - CXR: interval progression of the moderate right pleural effusion and right perihilar opacities, mild pulmonary edema and a trace left pleural effusion persists CT chest: Large right pleural effusion, significantly increased in size since prior chest CT. Associated right lower lobe collapse and segmental right middle and upper lobe atelectasis. - Procal 1.66. MRSA nares neg. - Pulmonology consulted -cont. diuresis for now -cont. palliative conversation given poor prognosis -s/p thoracentesis (11/13), chest tube in place. Post CXR with significant decrease in pleural effusion. - 11/14: pigtail catheter removed - 11/15: lasix switched from IV to PO (40mg qd) - 11/15: given patient's overall goals are for symptomatic control as he transitions to hospice, will discontinue monitoring I/Os, daily weights CKD4, oliguria - Cr 2 at admission, which is near his baseline - Diuresis as above, though patient remains oliguric - Nephrology consulted: - Given medical comorbidities and age, pt would not benefit significantly from dialysis if kidney dysfunction progresses - There will be some permissive rise in creatinine with diuresis and associated changes in EAV - Not a dialysis candidate S/p cholecystectomy with bile leak S/p ERCP with stent placement Late in his last hospitalization he developed acute RUQ pain and was found to have acute cholecystitis.He was treated with IV Unasyn then Zosyn.Despite IV antibiotics he continued to decline therefore was transferred to [facility].There he was found to have a necrotic gallbladder s/p cholecystectomy (10/15/2022) complicated by bile leak and development of biloma.Patient had an ERCP with deployment of drainage stent in the common bile duct on 10/21/2022. - Drainage stent was to be removed next week; however, we will leave this in for now per general surgery recommendation - ALP consistently elevated since cholecystectomy - Gen surgery consulted: -PEDRO output normal -Recommend leaving drain in given more acute issues -PEDRO drain and stent can remain for several more weeks; no urgency for removal - Continue levofloxacin/clindamycin for now Zemjz-[id number] anemia -Hgb 9s on admission, near baseline, but then fell to 7s, etiology unclear -11/13: Hgb 6.8, which kortney to 8.6 after transfusion of 1u pRBC -11/15: no further lab monitoring d/t transition towards hospice care Severe protein calorie malnutrition As noted during previous hospitalization, patient with persistent failure to thrive in the adult. He has been seen by palliative care team to assist with management of his symptoms. Patient reports that he has not been able to eat a decent meal for over 3 weeks due to lack of appetite. Discussed with him that this is most likely multifactorial, combination of his recent illness and hospitalization as well as age. Patient's anorexia was addressed during his previous hospital stay. Encourage oral intake. Will order heart healthy diet, mechanical soft Boost (ernst flavored preferred) twice daily 11/15: patient's appetite has improved; continue to monitor, can consider remeron or marinol if patient desires pharmacotherapy to improve appetite Pressure ulcer - Reported by patient and - Continue wound care, turn/position q2hwa COPD - Patient with some end expiratory wheezing appreciated in bilateral lung milan without cough DuoNeb every 4 hours Albuterol every 2 hours as needed Atrial fibrillation - Rate controlled - Continue holding home pradexa - 11/15: discontinuing cardiac monitoring d/t transition towards hospice care Hypertension - Well-controlled while here - Discontinuing clonidine and amlodipine d/t transition towards hospice care HLD: discontinue atorvastatin d/t transition towards hospice care Hypothyroidism: home synthroid GERD: PPI Gout: home allopurinol LUISA: CPAP as tolerated Parkinson's: continue home carbidopa/levodopa FEN: dietary restrictions removed d/t transition towards hospice care (though [id number] restriction remains) Code status: DNR/DNI DVT ppx: SCDs discontinued, pradexa held Case management: following Dispo: downgraded to med/surg as cardiac monitoring is no longer required (2) Severe protein-calorie malnutrition: (3) History of cholecystectomy: (4) COPD (chronic obstructive pulmonary disease): (5) Dyslipidemia: (6) Parkinson's disease: (7) GERD (gastroesophageal reflux disease): (8) Permanent atrial fibrillation: (9) Hypothyroidism: (10) Hypertension: (11) Apnea, sleep: Admission and Anticipated Discharge Date Admission Date: November 12, 2022 Supervising Physician Co-Signing Physician Notes I also saw the patient with the resident physician and confirmed ji portions of the history and physical examination. I agree with the impression and plan as noted in the resident documentation, and as summarized below. Upon our late morning exam, the patient is seated in bed eating lunch. Notes decreased appetite, but perhaps better than a couple of days ago. Breathing is about the same -improved status post chest tube (chest tube has since been removed yesterday late p.m.). After family meeting with palliative care, patient has elected for home hospice at [facility]. Exam 120/66, 70, 16, 36.8, 94% on nasal cannula 3 L/min Patient is seated in bed. Respirations nonlabored at rest. Data No new lab studies Impression and plan Pleural effusion with acute dyspnea, improved status post pleurocentesis Failure to thrive/debility Acute heart failure with preserved ejection fraction Patient will be discharged to [facility] with hospice pending bed availability/transport Will discontinue all dietary restrictions Switch IV Lasix to p.o.; will adjust as needed, goal is to keep him slightly dry for symptom management Discontinue atorvastatin Continue his postoperative antibiotics (clindamycin/levofloxacin) until discharge Chest tube has been discontinued Surgical drain (status postcholecystectomy) he remains in; this had been tentatively scheduled to be removed as an outpatient 11/18/22 Additional per resident documentation Subjective Patient seen and evaluated at bedside this morning. Telemetry: atrial fibrillation overnight with rates in the 50-60s. This morning, patient feels well and has no acute complaints. Notes his breathing feels comfortable today. Tolerated breakfast well this morning. Patient confirms that his goal is symptomatic treatment. Awaiting transportation to [facility] for hospice unit placement. Patient denies CP, SOB, abdominal pain, nausea, diarrhea, or other symptoms. Review of Systems Review of Systems: See HPI Physical Exam Physical Exam: Constitutional: well-appearing, no acute distress CV: extremities well-perfused Resp: no increased work of breathing Neuro: alert, oriented, no focal neurologic deficit appreciated Results & Data Results & Data ([facility]) Vital Signs (Past 12 Hours) Vital Signs Temp Pulse Pulse Resp BP Pulse Ox O2 Del Method 11/15/22 07:28 67 11/15/22 07:02 71 17 93 Nasal Cannula 11/15/22 03:00 36.6 C 72 18 149/65 H 94 Nasal Cannula 11/14/22 22:00 67 11/14/22 23:13 74 28 H 96 11/14/22 23:04 36.7 C 70 18 122/52 L 96 Nasal Cannula 11/14/22 20:24 Nasal Cannula O2 Flow Rate 11/15/22 07:28 11/15/22 07:02 3 11/15/22 03:00 3 11/14/22 22:00 11/14/22 23:13 4 11/14/22 23:04 3 11/14/22 20:24 3 Resident Activity Tracking Resident Involvement: Resident Care Provided Care Provided: Adult Hospital Medicine (11) Apnea, sleep Sleep apnea type: obstructive Qualified Code(s): G47.33 - Obstructive sleep apnea (adult) (pediatric)
[2022-11-16] MEDS ORDERED: FAMOTIDINE 20 MG TAB PO STA (00:19)
[2022-11-16] MEDS: LEVOTHYROXINE SODIUM 100 MCG TABLET PO SCH (06:06)
[2022-11-16] MEDS: CLINDAMYCIN HCL 150 MG CAP PO SCH ×2 (06:06→11:06)
[2022-11-16] MEDS: ALBUT/IPRATROP 3MG/0.5MG NEB 3 ML VIAL NEB SCH ×3 (06:29→14:22)
--- NOTE | 2022-11-16 07:16 | Hospitalist Progress Note ---
Date of Service November 16, 2022 Assessment & Plan Admission and Anticipated Discharge Date Admission Date: November 12, 2022 Results & Data Results & Data ([facility]) Vital Signs (Past 12 Hours) Vital Signs Temp Pulse Resp BP Pulse Ox O2 Del Method O2 Flow Rate 11/16/22 07:12 36.8 C 83 16 148/66 H 96 Nasal Cannula 3 11/16/22 06:29 83 20 94 Nasal Cannula 3 11/15/22 21:50 Nasal Cannula 3 11/16/22 00:15 78 18 95 Nasal Cannula 3 11/15/22 21:57 36.9 C 80 18 147/65 H 94 Nasal Cannula 3 11/15/22 21:28 Nasal Cannula 3
[2022-11-16] MEDS: CALCITRIOL 0.25 MCG CAPSULE PO SCH (08:17)
[2022-11-16] MEDS: CARBIDOPA/LEVODOPA 25/100MG TAB PO SCH ×2 (08:18→11:06)
[2022-11-16] MEDS: allopurinoL 100 MG TAB PO SCH (08:18)
[2022-11-16] MEDS ORDERED: FUROSEMIDE 40 MG TAB PO SCH (09:00)
[2022-11-16] MEDS ORDERED: PANTOprazole 40 MG TAB PO SCH (09:00)
[2022-11-16] MEDS ORDERED: FAMOTIDINE 20 MG TAB PO SCH (09:00)
--- NOTE | 2022-11-16 10:18 | Discharge Summary ---
Date of Service November 16, 2022 Admission HPI Per Admitting Provider Jimi Ramsay is an 87-year-old male with history of atrial fibrillation on Pradaxa anticoagulation, hypertension, GERD, hyperlipidemia and CKD presenting with progressive shortness of breath and poor appetite. Patient was seen admitted to [facility] from 09/24/2022 - 10/15/2022 after presenting with shortness of breath. Patient was initially treated for pneumonia and acute on chronic HFpEF exacerbation. Late in his hospitalization he developed acute right upper quadrant pain. He was found to have acute cholecystitis. He was treated with IV Unasyn then Zosyn. Despite IV antibiotics he continued to decline therefore was transferred to [facility]. At [facility] patient was found to have acute cholecystitis with a necrotic gallbladder status post cholecystectomy (10/15/2022) complicated by bile leak and development of biloma. Patient had an ERCP with deployment of drainage stent in the common bile duct on 10/21/2022. He was discharged to [facility] on 10/31/2022. Patient reports that since then he has had 2 weeks of poor appetite, decreased oral intake, generalized weakness. Also with progressive shortness of breath. He denies fever, chills, chest pain, palpitations, cough. Denies abdominal pain, nausea, vomiting, diarrhea, constipation. No urinary complaints. No additional complaints at this time. In the ER patient afebrile, hemodynamically stable. He is presently saturating 90% on 6 L of oxygen by nasal cannula. ER course: Lasix 40 mg IV Admission Exam Per Admitting Provider Skin: warm, dry, bandage present on left lower extremity HEENT: NC/AT, PERRL, EOMI, anicteric sclera, conjunctiva without injection, external ear normal to inspection and nontender, nares patent, moist mucus membranes, dentition intact, no oropharyngeal lesions, neck supple, trachea midline, no LAD, no thyromegaly, no JVD Heart: +S1/S2, irregularly irregular, no m/r/g Lungs: Patient tachypneic, mild abdominal retractions, is speaking in complete sentences, diminished breath sounds in bilateral bases, crackles present in right lung, faint end expiratory wheezing bilaterally Abd: +BS, soft, NT/ND, ventral hernia present, soft and reducible, PEDRO drain in place, no masses/organomegaly/ascites Ext: warm, 2+ pulses in UE/LE bilaterally, no clubbing/cyanosis, 2+ pitting edema bilateral lower extremities Neuro: nonfocal, patient AA&O x 4, speech intact, no facial droop, moving all extremities on command with equal strength 5/5 Principal Diagnosis Pleural effusion with acute dyspnea, severe protein-calorie malnutrition, acute HFpEF Discharge Exam Constitutional: no acute distress, wearing bipap mask, breathing comfortably CV: extremities well-perfused Resp: breathing non-labored Neuro: alert, oriented, no focal neurologic deficit appreciated Discharge Data Allergies Allergy/AdvReac Type Severity Reaction Status Date / Time hydralazine AdvReac Severe anorexia,h/ Verified 11/12/22 01:49 a,nausea,pa lpitations Consultations 11/12/22 02:56 ED Decision to Admit Stat 11/12/22 14:32 Consult General Surgery Routine 11/12/22 14:36 Consult Pulmonology Routine 11/12/22 14:37 Consult Nephrology Routine 11/13/22 14:47 Consult Palliative Care Routine Ordered Studies 11/12/22 04:48 CT chest diagnostic wo con Routine 11/12/22 12:01 CT abd pelvis wo con Routine 11/13/22 11:29 US point of care ultrasound Urgent Hospital Course (1) Breath shortness: SOB, pleural effusion, HFpEF, fluid overload Patient's presenting symptoms were felt to be multifactorial in etiology including HFpEF, pleural effusions, and fluid overload in the setting of CKD4. Patient was treated with diuresis, and pulmonology placed a chest tube/pigtail catheter to drain the large right pleural effusion. The pigtail catheter was removed on 11/14. Patient's SOB improved with these interventions, but given patient's overall declining health, including ongoing failure to thrive and recent extensive hospital course for acute cholecystitis with multiple complications (see below), patient and patient's family decided to transition patient's care towards symptomatic relief, choosing to be discharged to the hospice unit at [facility]. Of note, on the day of discharge, patient desaturated to the 70s after a coughing fit after swallowing some pills; patient remained hypoxic despite escalation to 11L oxymask, but spO2 kortney to 100% when placed on bipap. Patient's spO2 remained adequate as supplemental oxygen was titrated back down, and patient was felt to be stable for discharge once his oxygen was titrated back down to 4L NC. Patient's lasix (40mg PO daily) was continued upon discharge for symptomatic control. CKD4, [id number]-[id number] renal failure Patient's creatinine was near baseline during this hospitalization, and was diuresed as noted above. Nephrology was consulted and felt that due to patient's age and comorbidities, patient would not benefit from dialysis if kidney function worsened. As noted above, patient's lasix (40mg PO daily) was continued upon discharge for symptomatic control. Acute cholecystitis s/p cholecystectomy with bile leak, s/p ERCP with stent placement Patient was hospitalized in September with a CHF exacerbation and abdominal pain, and late in his hospital course, developed acute cholecystitis. Given the high risk of surgery given patient's frailty, patient was transferred to a [facility] [place] where he was found to have a necrotic gallbladder. Patient underwent cholecystectomy (10/15/22) which was complicated by a bile leak and biloma development. Patient then underwent ERCP with common bile duct stent placement (10/21/22). Patient's drainage stent was originally intended to be removed in late October, but general surgery consult during this hospitalization recommended leaving it in for several more weeks, noting no urgency with its removal. Patient was treated with antibiotics during this hospitalization, which were discontinued upon discharge. Severe protein-calorie malnutrition Patient was noted during his prior hospitalization with persistent failure to thrive, likely multifactorial in etiology including recent illnesses, surgeries, complicated hospitalizations, and a few-month decline in appetite. Patient's oral intake was acceptable during this hospitalization. Recommend consideration of remeron or marinol treatment if patient's appetite worsens. Atrial fibrillation Patient's HR was well-controlled during this hospitalization without need for rate-lowering pharmacotherapy. Patient's anticoagulation (pradexa) was held during this hospitalization due to anemia. We will defer the decision on whether to restart or discontinue anticoagulation to patient's hospice care team at [facility]. Evtlg-qk-prxjyfc anemia On hospital day two, patient's hemoglobin was noted to have fallen from the 9s to 6.8 without clear etiology; this kortney appropriately (to 8.6) after transfusion of 1u pRBC. Lab monitoring was discontinued on 11/15 due to patient's transition towards comfort care. Pressure ulcer Patient was noted on admission with a sacral pressure ulcer which was treated with wound care and frequent repositioning. COPD Patient was noted with intermittent end-expiratory wheezing during this hospitalization, treated with scheduled duonebs and as-needed albuterol. This inhaler regimen was continued upon discharge for symptomatic relief. Hypertension Patient's blood pressure was well-controlled during this admission. Patient's home amlodipine and clonidine were discontinued during this hospitalization as part of patient's transition towards comfort care. GERD: patient's home omeprazole was continued upon discharge. Gout: patient's home allopurinol was continued upon discharge. Hypothyroidism: patient's home sythroid was continued upon discharge. LUISA: patient's CPAP was continued upon discharge as he reports symptomatic improvement when using it. Parkinson's: patient's home carbidopa-levodopa was continued upon discharge. (2) Severe protein-calorie malnutrition: (3) History of cholecystectomy: (4) COPD (chronic obstructive pulmonary disease): (5) Dyslipidemia: (6) Parkinson's disease: (7) GERD (gastroesophageal reflux disease): (8) Permanent atrial fibrillation: (9) Hypothyroidism: (10) Hypertension: (11) Apnea, sleep: Total Time Total Time Spent Total Time Spent (In Minutes): 30 mins in examining and documentation Discharge Plan Discharge Items Patient Disposition: Hospice - Medical Facility Reason For Visit: HYPOXIA, SOB Discharge Diagnosis: Pleural effusion with acute dyspnea, severe protein-calorie malnutrition, acute HFpEF Activity: Resume your previous activity Non-emergency contact: Primary Care Provider Call non-emergency contact if: you have any medication questions and your symptoms worsen Follow-up/Referrals: Noy Abebe [Primary Care Provider] - Diet: Regular Diet Texture: Easy to Chew Addtl Attending Provider Instructions: SOB, pleural effusion, HFpEF, fluid overload - Most likely multifactorial; patient with evidence of volume overload on physical exam to include edema, right-sided pleural effusion, mild elevation of BNP and troponin Patient had echo in during his most recent hospital stay which revealed EF of 50 to 54% and mild pulmonary hypertension. - CXR: interval progression of the moderate right pleural effusion and right perihilar opacities, mild pulmonary edema and a trace left pleural effusion persists - CT chest: Large right pleural effusion, significantly increased in size since prior; associated right lower lobe collapse and segmental right middle and upper lobe atelectasis - Pulmonology consulted and drained the pleural effusions, placing a pigtail catheter which was removed on 11/14 - 11/15: given patient's overall goals are for symptomatic control as he transitions to hospice, will discontinue monitoring I/Os, daily weights - Continue lasix 40mg PO daily for symptomatic relief CKD4, oliguria - Creatinine near baseline on admission - Diuresis as above, though patient remains oliguric - Nephrology consulted: - Given medical comorbidities and age, pt would not benefit significantly from dialysis if kidney dysfunction progresses - There will be some permissive rise in creatinine with diuresis and associated changes in EAV - Not a dialysis candidate S/p cholecystectomy with bile leak S/p ERCP with stent placement - Late in his last hospitalization he developed acute RUQ pain and was found to have acute cholecystitis - He was treated with IV Unasyn then Zosyn; despite IV antibiotics he continued to decline therefore was transferred to [facility].There he was found to have a necrotic gallbladder s/p cholecystectomy (10/15/2022) complicated by bile leak and development of biloma.Patient had an ERCP with deployment of drainage stent in the common bile duct on 10/21/2022. - Drainage stent was to be removed in late October; however, we will leave this in for now per general surgery recommendation - ALP consistently elevated since cholecystectomy - Gen surgery consulted: -Recommend leaving drain in given more acute issues -PEDRO drain and stent can remain for several more weeks; no urgency for removal - Was treated with levofloxacin/clindamycin during this hospitalization; these will be discontinued upon discharge Nusoz-lz-qvqidnb anemia - Hgb 9s on admission, near baseline, but then fell to 7s, etiology unclear - 11/13: Hgb 6.8, which kortney to 8.6 after transfusion of 1u pRBC - 11/15: no further lab monitoring d/t transition towards hospice care Severe protein calorie malnutrition - As noted during previous hospitalization, patient with persistent failure to thrive in the adult - He has been seen by palliative care team to assist with management of his symptoms - Patient reports that he has not been able to eat a decent meal for over 3 weeks due to lack of appetite - Discussed with him that this is most likely multifactorial, combination of his recent illness and hospitalization as well as age Encourage oral intake - Dietary restrictions have been discontinued (except for emuj-ne-aleq) - regular diet is OK; patient notes he likes ernst flavored Boost Pressure ulcer - Reported by patient and - Continue wound care, turn/position q2hwa COPD - Patient with some end expiratory wheezing appreciated in bilateral lung milan without cough DuoNeb every 4 hours (while awake) scheduled Albuterol every 2 hours as needed Atrial fibrillation - Rate controlled during this hospitalization without need for rate control meds - Home pradexa held during this stay d/t anemia; will allow [facility] hospice team to decide whether to continue this in the setting of hospice Hypertension - Well-controlled while hospitalized - Discontinuing clonidine and amlodipine d/t transition towards hospice care Pending Studies at Discharge: No Stand-Alone Forms: My [facility] [email or web address] Skilled Items Patient informed of condition?: Yes DNR: Yes Discharge Level of Care: Other Communicable Disease: No Discharge Prognosis: Stable Lines: None Urinary Catheter: No Medications and DC Order Prescriptions: Continued (DME) CPAP Machine Misc See Rx Instructions .ROUTE .MEDSUPPLY Qty: 1 0RF Rx Instructions: INCREASE CPAP TO 11CM. [facility] levothyroxine 100 mcg tablet 100 mcg PO QAM Qty: 90 3RF (DME) CPAP Machine Misc See Dose Instructions .ROUTE .MEDSUPPLY Qty: 10 0RF Dose Instruction: As directed Rx Instructions: CPAP pressure change: 10cm H20 and mask addessment acetaminophen [Tylenol] 325 mg Tablet 650 mg PO Q4H MDD 3 GRAMS/24 HOURS PRN (Reason: PAIN/FEVER) omeprazole 40 mg Capsule,Delayed Release(Dr/Ec) 40 mg PO QAM bisacodyl 10 mg Suppository 10 mg NC Q OTHER DAY PRN (Reason: Constipation) dabigatran etexilate [Pradaxa] 75 mg Capsule 75 mg PO BID Spiriva Respimat 1.25 mcg/actuation Mist 2 puff INHALATION QAM allopurinol 100 mg tablet 100 mg PO QAM carbidopa-levodopa 25-100 mg tablet 1 tab PO TIDM Discontinued atorvastatin 80 mg Tablet 80 mg PO PM Rx Instructions: TAKES Q AFTERNOON clonidine HCl 0.1 mg Tablet 0.1 mg PO BID clindamycin HCl 300 mg Capsule 300 mg PO Q6H Rx Instructions: STARTED 11/11/22 FOR 8 DAYS. calcitriol 0.5 mcg Capsule 0.5 mcg PO QAM levofloxacin [Levaquin] 750 mg Tablet 750 mg PO Q OTHER DAY Rx Instructions: STARTED 11/10/22 FOR 5 DOSES, ENDS 11/18/22 Saccharomyces boulardii [Florastor] 250 mg Capsule 250 mg PO QPM Rx Instructions: STARTED 11/11/22 FOR 30 DAYS. Discharge Orders: Discharge Order (Routine); Ordered 11/16/22 Ordered By: Isaac Lockhart Admission Data Admit Date/Time: 11/12/22 03:28 Attending Provider: Ayden Pillai Admit Provider: Kailyn Norman Primary Care Provider: Noy Abebe Other Providers: Kailyn Norman ; Hao Borges ; Ezequiel Torres ; Js Olson ; Carli Crystal Other Interventions: Discharge Summary Assessment (RN) Last Done: 11/16/22 14:38 Supervising Physician Co-Signing Physician Notes I also saw the patient with the resident physician and confirmed ji portions of the history and physical examination. I agree with the impression and plan as noted in the resident documentation, with additons as below.. Arrangements made for transfer back to [facility] with hospice. On the morning of discharge, had an acute episode of hypoxia following a coughing spell. The patient was placed on BiPAP - a STAT chest XR was unchanged - and the patient was successfully transitioned back to nasal cannula and was able to maintain SPO2 > 97% on 4 lpm. As noted previously, chest tube was removed; surgical drain remains in place (this was previously scheduled to be removed as outpatient). No signs of infection, and antibiotics will be discontinued upon discharge and admission to hospice. Patient remains on pradaxa, although this can be discussed/discontinued after formal hospice admission, Impression and plan Pleural effusion with acute dyspnea, improved status post pleurocentesis Failure to thrive/debility Acute heart failure with preserved ejection fraction Patient will be discharged to [facility] with hospice Discontinue all dietary restrictions Continue PO diuretics for comfort. Discontinue atorvastatin, antibiotic; likely discontinue Pradaxa once returns to [facility]. Chest tube has been discontinued Surgical drain (status postcholecystectomy) he remains in; this had been tentatively scheduled to be removed as an outpatient 11/18/22 Additional per resident documentation Resident Activity Tracking Resident Involvement: Resident Care Provided Care Provided: Adult Hospital Medicine
[2022-11-16] MEDS: levoFLOXacin 750 MG TAB PO SCH (11:06)
--- NOTE | 2022-11-16 12:19 | XRay Report ---
XR chest 1V portable HISTORY: hypoxia COMPARISON: Chest 11/15/2022. FINDINGS: The cardiac silhouette remains enlarged. There is left-sided single lead pacemaker. No pneu mothorax. Mild congestive change and bilateral pleural effusions persist. This is similar to the prio r study. Right basilar density favors atelectasis from the pleural effusions. This is also unchanged. IMPRESSION: No change compared to the prior study. Mild pulmonary edema and bilateral pleural effusions persist. ACT 112: Negative or not required by law. Electronically signed by: Phi Shaikh M.D. 11/16/2022 12:17 PM
== END 2022-11-16 16:13 | disposition hospice, inpatient (51) | DRG 291 ==
LOC: ED 01:15 → SUATTDRO 03:28 → 2W 03:28 → 3W 11-15 22:04